=== PATIENT | male | born 1950 | race Caucasian/White ===

== ENCOUNTER 2017-10-24 14:19 | Inpatient (IN) | payer OTHER ==
[~2017-10-24] VITALS: Ht 175.3 cm; Wt 91.9 kg
[~2017-10-24 14:19] MED LIST: PANT40TA PO; SUCR1TAB PO
[2017-10-24] MEDS ORDERED: ONDANSETRON INJ 2 MG/ML 2 ML VIAL IV STA (14:25)
[2017-10-24] MEDS ORDERED: SODIUM CHLORIDE 0.9% 1000ML 1,000 ML IV STA ×2 (14:25→15:19)
--- NOTE | 2017-10-24 14:29 | EMERGENCY ROOM VISIT NOTE ---
History Report prepared by Joellen: Nick Richter Under the Supervision of: Dr. Timoteo Carrion D.O. First contact with patient: 14:21 Stated Complaint: LETHARGIC History of Present Illness The patient is a 67 year old male who presents to the Emergency Room with complaints of constant lethargy beginning three weeks ago. The patient states he was diagnosed with the flu three weeks ago, and he has been bed bound since. He reports he has not eaten or drank anything in the past three days. The patient notes he has also experienced a large amount of nausea. He states his abdomen has been hurting, and it is normally not distended. The patient reports he does not remember when his last bowel movement was. He denies vomiting, a history of heart failure, and a history of an ME. Source of History: patient Onset: 3 weeks ago Position: other (global) Quality: other (lethargy) Timing: constant Associated Symptoms: + nausea, + abdominal pain, No vomiting Note: Associated symptoms: decreased appetite and fluid intake, abdomen is distended Review of Systems See HPI for pertinent positives & negatives. A total of 10 systems reviewed and were otherwise negative. Past Medical & Surgical Medical Problems: (1) Cataract Social History Problems: (1) Former smoker Family History Patient reports no known family medical history. Social History Smoking Status: Former Smoker Alcohol Use: none Drug Use: none Marital Status: single Occupation Status: retired Current/Historical Medications Scheduled Lisinopril & Hydrochlorothiazi (Zestoretic 20-12.5 mg), 1 TAB PO QPM Scheduled PRN Soklkotmwq-Ubfrepqbwlktg-Wqzwu (Fioricet), 1-2 TABS PO Q4 PRN for Migraine Allergies Coded Allergies: Shrimp (Verified Adverse Reaction, Unknown, GI SYMPTOMS, 10/24/17) Physical Exam Vital Signs Date Time Temp Pulse Resp B/P (MAP) Pulse Ox O2 Delivery O2 Flow Rate FiO2 10/24/17 16:35 107 20 165/89 97 10/24/17 16:00 107 20 165/89 97 Room Air 10/24/17 15:34 105 19 140/91 98 Room Air 10/24/17 15:19 107 18 136/83 98 Room Air 10/24/17 14:30 111 10/24/17 14:20 37.2 122 19 129/89 96 Room Air Physical Exam GENERAL: Patient is awake, alert, and in some distress. Patient is showing mild signs of anxiety EYES: The conjunctivae are clear. The pupils are round and reactive. EARS, NOSE, MOUTH AND THROAT: The nose is without any evidence of any deformity. Mucous membranes are dry tongue is midline NECK: The neck is nontender and supple. RESPIRATORY: Normal respiratory effort is noted there is no evidence of wheezing rhonchi or rales CARDIOVASCULAR: Tachycardic rate and regular rhythm noted there no murmurs rubs or gallops normal S1 normal S2 GASTROINTESTINAL: The abdomen is soft. Bowel sounds are present in all quadrants. Abdomen severely distended and appears to be tender. No definite hernia. MUSCULOSKELETAL/EXTREMITIES: There is no evidence of gross deformity full range of motion is noted in the hips and shoulders SKIN: There is no obvious evidence of any rash. There are no petechiae, pallor or cyanosis noted. NEUROLOGIC: Patient is awake alert and oriented x3 strength is symmetric patellar reflexes are 2+ bilaterally Medical Decision & Procedures ER Provider Diagnostic Interpretation: Radiology results as stated below per my review and radiologist interpretation: CHEST ONE VIEW PORTABLE HISTORY: 67 years-old Male ABDOMINAL PAIN/GI acute generalized abdominal pain COMPARISON: Chest radiograph 09/30/2015 TECHNIQUE: Portable AP view of the chest FINDINGS: Cardiomediastinal and hilar silhouettes are within normal limits. Atherosclerosis of the aorta. Linear subsegmental left basilar opacities suggest atelectasis or scarring. There is no pneumothorax, pleural effusion, focal airspace consolidation or overt pulmonary edema. The bones of the chest appear grossly intact. IMPRESSION: No acute process. The above report was generated using voice recognition software. It may contain grammatical, syntax or spelling errors. Electronically signed by: Ezio Pandya M.D. 10/24/2017 3:32 PM Dictated Date/Time: 10/24/2017 3:31 PM ABDOMEN AND PELVIS CT WITHOUT CONTRAST CT DOSE: 968.36 mGy.cm HISTORY: Acute abdominal distention with vomiting abd distention and vomiting TECHNIQUE: Multiaxial CT images of the abdomen and pelvis were performed without contrast. A dose lowering technique was utilized adhering to the principles of ALARA. COMPARISON STUDY: Hepatobiliary scan 10/01/2015, CT abdomen and pelvis 09/30/2015. FINDINGS: Mild subsegmental bibasilar atelectasis. Imaged inferior cardiac chambers are unremarkable with coronary arterial disease. The liver, spleen and right adrenal gland are unremarkable. There is mild nodular thickening of the left adrenal gland suggesting hyperplasia. Moderate generalized pancreatic atrophy. Mild gallbladder distention without cholelithiasis or biliary ductal dilation identified. Nonspecific partially calcified aaron hepatis lymph nodes are again seen which are not enlarged. Mild nonspecific bilateral perinephric stranding. 2.9 cm ovoid low attenuating lesion of the interpolar right kidney suggesting cyst is unchanged. Exophytic low attenuating lesion within the inferior pole right kidney measures 1.8 cm and also suggests renal cyst. No renal calculi or obstructive uropathy. Urinary bladder is unremarkable. Prostate is mildly enlarged. Moderate atherosclerosis of the aorta. No bulky adenopathy. Mildly prominent lymph nodes of the mid mesentery are likely reactive. There is a small sliding-type hiatal hernia. Extensive colonic diverticulosis with associated areas of wall thickening within the mid sigmoid colon compatible with acute diverticulitis. There is nondistention throughout the majority of the colon. The appendix appears normal. Moderate mesenteric inflammatory changes are seen throughout the pelvis adjacent to the inflamed diverticulitis with additional inflammatory changes throughout the mid mesentery. There is moderate pneumoperitoneum with a large air and fluid containing abscess of the left lower abdomen and left pelvis which measures up to 10.9 x 13.1 x 14.3 cm with loops of small and large bowel draped around its periphery. This collection demonstrates a thin wall with areas of wall irregularity noted along its left lateral margin as seen on image 21 series 3 with air tracking from the collection into the adjacent omentum adjacent to the transverse colon. Additional smaller air and fluid-filled collections are seen anterior to the transverse colon as noted on image 224 series 3. There is a separate irregular air and fluid containing collection with ill-defined margins within the left lateral pelvis seen on image 304 series 3. Pneumoperitoneum appears to be tracking towards the sigmoid colon on image 344 series 3 which may reflect site of perforation. Dilated loops of small bowel within the pelvis with air-fluid levels are seen measuring up to 3.6 cm as seen on image 349 series 3 suggesting reactive ileus. Mild diastases recti with small fat filled periumbilical hernia, diastases 2.2 cm. Bones appear intact. Levoscoliosis of the lumbar spine. IMPRESSION: 1. Acute complicating sigmoid diverticulitis with pneumoperitoneum compatible with perforation. Additionally, there is a large air and fluid-filled collection of the left lower abdomen and left pelvis measuring up to 14.3 cm compatible with abscess. Multiple additional smaller abscesses are also present within the lower abdomen and pelvis as above. Surgical consultation is advised. 2. Dilated loops of ileum within the pelvis with air-fluid levels suggestive reactive ileus without evidence of proximal small bowel obstruction. 3. Small sliding-type hiatal hernia. 4. Additional findings as above. Electronically signed by: Ezio Pandya M.D. 10/24/2017 3:26 PM Dictated Date/Time: 10/24/2017 3:08 PM Laboratory Results 10/24/17 14:33 Red Blood Count 4.54, Mean Corpuscular Volume 90.5, Mean Corpuscular Hemoglobin 32.2, Mean Corpuscular Hemoglobin Concent 35.5, Mean Platelet Volume 8.9, Neutrophils (%) (Auto) 78.9, Lymphocytes (%) (Auto) 6.2, Monocytes (%) (Auto) 13.9, Eosinophils (%) (Auto) 0.0, Basophils (%) (Auto) 0.2, Neutrophils # (Auto ) 9.24, Lymphocytes # (Auto) 0.73, Monocytes # (Auto) 1.63, Eosinophils # (Auto ) 0.00, Basophils # (Auto) 0.02 10/24/17 14:33 Test 10/24/17 14:33 10/24/17 14:46 White Blood Count 11.71 K/uL (4.8-10.8) Red Blood Count 4.54 M/uL (4.7-6.1) Hemoglobin 14.6 g/dL (14.0-18.0) Hematocrit 41.1 % (42-52) Mean Corpuscular Volume 90.5 fL (80-100) Mean Corpuscular Hemoglobin 32.2 pg (25-34) Mean Corpuscular Hemoglobin Concent 35.5 g/dl (32-36) Platelet Count 372 K/uL (130-400) Mean Platelet Volume 8.9 fL (7.4-10.4) Neutrophils (%) (Auto) 78.9 % Lymphocytes (%) (Auto) 6.2 % Monocytes (%) (Auto) 13.9 % Eosinophils (%) (Auto) 0.0 % Basophils (%) (Auto) 0.2 % Neutrophils # (Auto) 9.24 K/uL (1.4-6.5) Lymphocytes # (Auto) 0.73 K/uL (1.2-3.4) Monocytes # (Auto) 1.63 K/uL (0.11-0.59) Eosinophils # (Auto) 0.00 K/uL (0-0.5) Basophils # (Auto) 0.02 K/uL (0-0.2) RDW Standard Deviation 47.3 fL (36.4-46.3) RDW Coefficient of Variation 14.3 % (11.5-14.5) Immature Granulocyte % (Auto) 0.8 % Immature Granulocyte # (Auto) 0.09 K/uL (0.00-0.02) Prothrombin Time 15.3 SECONDS (9.0-12.0) Prothromb Time International Ratio 1.5 (0.9-1.1) Activated Partial Thromboplast Time 37.8 SECONDS (21.0-31.0) Partial Thromboplastin Ratio 1.5 Anion Gap 20.0 mmol/L (3-11) Est Creatinine Clear Calc Drug Dose 56.0 ml/min Estimated GFR () 61.0 Estimated GFR (Non- 52.6 BUN/Creatinine Ratio 20.1 (10-20) Calcium Level 8.9 mg/dl (8.5-10.1) Magnesium Level 2.2 mg/dl (1.8-2.4) Total Bilirubin 0.5 mg/dl (0.2-1) Direct Bilirubin 0.2 mg/dl (0-0.2) Aspartate Amino Transf (AST/SGOT) 27 U/L (15-37) Alanine Aminotransferase (ALT/SGPT) 27 U/L (12-78) Alkaline Phosphatase 166 U/L (45-117) Total Creatine Kinase 35 U/L (39-308) Creatine Kinase MB 2.1 ng/ml (0.5-3.6) Creatine Kinase MB Ratio 6.0 (0-3.0) Troponin I 0.027 ng/ml (0-0.045) Total Protein 8.1 gm/dl (6.4-8.2) Albumin 2.1 gm/dl (3.4-5.0) Lipase 207 U/L (73-393) Bedside Lactic Acid Venous 1.58 mmol/L (0.90-1.70) Laboratory results per my review. Medications Administered Medications (Trade) Dose Ordered Sig/King Route Start Time Stop Time Status Last Admin Dose Admin Sodium Chloride 1,000 ml @ 999 mls/hr Q1H1M STAT IV 10/24/17 14:25 10/24/17 15:25 DC 10/24/17 14:49 999 MLS/HR Ondansetron HCl (Zofran Inj) 4 mg NOW STAT IV 10/24/17 14:25 10/24/17 14:26 DC 10/24/17 14:49 4 MG Piperacillin Sod/ Tazobactam Sod (Zosyn Iv) 4.5 gm NOW STAT IV 10/24/17 15:19 10/24/17 15:20 DC 10/24/17 15:34 4.5 GM Sodium Chloride 1,000 ml @ 999 mls/hr Q1H1M STAT IV 10/24/17 15:19 10/24/17 16:19 DC 10/24/17 15:34 999 MLS/HR ECG Indication: weakness Rate (beats per minute): 116 Rhythm: sinus tachycardia Findings: Q waves (Inferior), no ectopy, other (Poor R-Wave progression noted) Comparison ECG Date: 10/01/15 Change: Changes are new. Patient's EKG was interpreted by me. ED Course 1422: The patient was evaluated in room C04. A complete history and physical examination were performed. 1425: Ordered Ondansetron HCl 4mg IV, NSS 1,000 ml @ 999 mls/hr IV 1519: Ordered NSS 1,000 ml @ 999 mls/hr IV, Zosyn IV 4.5 gm IV 1536: I discussed the patient's case with Lisa Adams PA-C, Surgery. She will discuss the case with Dr. Shea, Surgery. 1544: Dr. Shea is going to evaluate the patient and take him to the OR. 1546: Upon reevaluation, the patient is resting. I discussed results and treatment plan with him. He verbalizes agreement and understanding. The patient will be evaluated for further management and care. 1550: I spoke with Lisa again. She asked me to consult medicine. 1554: I discussed the patient's case with Dr. Pearson, [facility] for medical advice about the patient. Medical Decision Differential diagnosis: Etiologies such as appendicitis, diverticulitis, PUD, biliary pathology, UTI, pancreatitis, obstruction, mesenteric ischemia, aortic pathology, infections, inflammatory bowel disease, renal colic, as well as others were entertained. Nursing notes reviewed. Additional history was obtained from the patient's prehospital personnel. The patient is a 67-year-old male who presented to the emergency department for an evaluation of generalized weakness. The patient was found have very significant abdominal distention as well as tenderness. His CAT scan appear to be consistent with diverticular rupture with abscess as well as diverticulitis. The patient was treated with IV fluids as well as IV and about. He was reevaluated multiple times. I discussed his laboratory radiographic studies with him. I also discussed his case with the on-call general surgical group as well as the on-call [facility] hospitalist group. They have agreed to evaluate the patient for further management and disposition. Medication Reconcilliation Current Medication List: was personally reviewed by me Blood Pressure Screening Patient's blood pressure: Elevated blood pressure Blood pressure disposition: Elevated BP felt to be situational Consults Time Called: 1534 Consulting Physician: Lisa Adams PA-C, Surgery Returned Call: 1536 I discussed the patient's case with Lisa Adams PA-C, Surgery. She will discuss the case with Dr. Shea, Surgery. 1544: Dr. Shea is going to evaluate the patient and take him to the OR. 1550: I spoke with Lisa again. She asked me to consult medicine. Additional Consults: Time Called: 1551 [facility] Returned Call: 1554 Additional Comments: I [facility] the [facility]. Impression Primary Impression: Diverticulitis of intestine with perforation Additional Impressions: Pneumoperitoneum Intra-abdominal abscess Scribe Attestation The scribe's documentation has been prepared under my direction and personally reviewed by me in its entirety. I confirm that the note above accurately reflects all work, treatment, procedures, and medical decision making performed by me. Departure Information Dispostion Being Evaluated By Surgeon Referrals No Doctor, Assigned (PCP) Problem Qualifiers Primary Impression: Diverticulitis of intestine with perforation Diverticulitis site: large intestine Diverticulitis bleeding: without bleeding Qualified Codes: K57.20 - Diverticulitis of large intestine with perforation and abscess without bleeding
[2017-10-24 14:55] LABS: HEMATOCRIT 41.1 % (42-52); HEMOGLOBIN 14.6 g/dL (14.0-18.0); MEAN CELL VOLUME 90.5 fL (80-100); MEAN CORPUSCULAR HEMOGLOBIN 32.2 pg (25-34); MEAN CORPUSCULAR HGB CONC 35.5 g/dl (32-36); MEAN PLATELET VOLUME 8.9 fL (7.4-10.4); PLATELET COUNT 372 K/uL (130-400); RED CELL DISTRIBUTION WIDTH CV 14.3 % (11.5-14.5); RED CELL DISTRIBUTION WIDTH SD 47.3 fL (36.4-46.3); WHITE BLOOD COUNT 11.71 K/uL (4.8-10.8)
[2017-10-24 15:06] LABS: INR 1.5 (0.9-1.1); PTT PATIENT 37.8 SECONDS (21.0-31.0)
[2017-10-24 15:13] LABS: ALBUMIN 2.1 gm/dl (3.4-5.0); CALCIUM 8.9 mg/dl (8.5-10.1); CREATININE 1.37 mg/dl (0.60-1.40); POTASSIUM 3.4 mmol/L (3.5-5.1)
[2017-10-24 15:14] LABS: BASO % 0.2 %; BASO ABS # 0.02 K/uL (0-0.2); IG# 0.09 K/uL (0.00-0.02); LYMPH % 6.2 %; LYMPH ABS # 0.73 K/uL (1.2-3.4); MONO % 13.9 %; MONO ABS # 1.63 K/uL (0.11-0.59); NEUT % 78.9 %; NEUT ABS # 9.24 K/uL (1.4-6.5)
[2017-10-24 15:16] LABS: CKMB 2.1 ng/ml (0.5-3.6); TOTAL PROTEIN 8.1 gm/dl (6.4-8.2)
[2017-10-24] MEDS ORDERED: PIPERACILLIN/TAZOBACTAM 4.5 GM/100ML D5W IV STA (15:19)
[2017-10-24] MEDS ORDERED: LISI-787 PO (15:25)
[2017-10-24] MEDS ORDERED: BUTA1CAP17 PO (15:25)
--- NOTE | 2017-10-24 15:28 | DIAGNOSTIC IMAGING REPORT ---
ABDOMEN AND PELVIS CT WITHOUT CONTRAST CT DOSE: 968.36 mGy.cm HISTORY: Acute abdominal distention with vomiting abd distention and vomiting TECHNIQUE: Multiaxial CT images of the abdomen and pelvis were performed without contrast. A dose lowering technique was utilized adhering to the principles of ALARA. COMPARISON STUDY: Hepatobiliary scan 10/01/2015, CT abdomen and pelvis 09/30/2015. FINDINGS: Mild subsegmental bibasilar atelectasis. Imaged inferior cardiac chambers are unremarkable with coronary arterial disease. The liver, spleen and right adrenal gland are unremarkable. There is mild nodular thickening of the left adrenal gland suggesting hyperplasia. Moderate generalized pancreatic atrophy. Mild gallbladder distention without cholelithiasis or biliary ductal dilation identified. Nonspecific partially calcified aaron hepatis lymph nodes are again seen which are not enlarged. Mild nonspecific bilateral perinephric stranding. 2.9 cm ovoid low attenuating lesion of the interpolar right kidney suggesting cyst is unchanged. Exophytic low attenuating lesion within the inferior pole right kidney measures 1.8 cm and also suggests renal cyst. No renal calculi or obstructive uropathy. Urinary bladder is unremarkable. Prostate is mildly enlarged. Moderate atherosclerosis of the aorta. No bulky adenopathy. Mildly prominent lymph nodes of the mid mesentery are likely reactive. There is a small sliding-type hiatal hernia. Extensive colonic diverticulosis with associated areas of wall thickening within the mid sigmoid colon compatible with acute diverticulitis. There is nondistention throughout the majority of the colon. The appendix appears normal. Moderate mesenteric inflammatory changes are seen throughout the pelvis adjacent to the inflamed diverticulitis with additional inflammatory changes throughout the mid mesentery. There is moderate pneumoperitoneum with a large air and fluid containing abscess of the left lower abdomen and left pelvis which measures up to 10.9 x 13.1 x 14.3 cm with loops of small and large bowel draped around its periphery. This collection demonstrates a thin wall with areas of wall irregularity noted along its left lateral margin as seen on image 21 series 3 with air tracking from the collection into the adjacent omentum adjacent to the transverse colon. Additional smaller air and fluid-filled collections are seen anterior to the transverse colon as noted on image 224 series 3. There is a separate irregular air and fluid containing collection with ill-defined margins within the left lateral pelvis seen on image 304 series 3. Pneumoperitoneum appears to be tracking towards the sigmoid colon on image 344 series 3 which may reflect site of perforation. Dilated loops of small bowel within the pelvis with air-fluid levels are seen measuring up to 3.6 cm as seen on image 349 series 3 suggesting reactive ileus. Mild diastases recti with small fat filled periumbilical hernia, diastases 2.2 cm. Bones appear intact. Levoscoliosis of the lumbar spine. IMPRESSION: 1. Acute complicating sigmoid diverticulitis with pneumoperitoneum compatible with perforation. Additionally, there is a large air and fluid-filled collection of the left lower abdomen and left pelvis measuring up to 14.3 cm compatible with abscess. Multiple additional smaller abscesses are also present within the lower abdomen and pelvis as above. Surgical consultation is advised. 2. Dilated loops of ileum within the pelvis with air-fluid levels suggestive reactive ileus without evidence of proximal small bowel obstruction. 3. Small sliding-type hiatal hernia. 4. Additional findings as above. Electronically signed by: Ezio Pandya M.D. 10/24/2017 3:26 PM Dictated Date/Time: 10/24/2017 3:08 PM
--- NOTE | 2017-10-24 15:34 | DIAGNOSTIC IMAGING REPORT ---
CHEST ONE VIEW PORTABLE HISTORY: 67 years-old Male ABDOMINAL PAIN/GI acute generalized abdominal pain COMPARISON: Chest radiograph 09/30/2015 TECHNIQUE: Portable AP view of the chest FINDINGS: Cardiomediastinal and hilar silhouettes are within normal limits. Atherosclerosis of the aorta. Linear subsegmental left basilar opacities suggest atelectasis or scarring. There is no pneumothorax, pleural effusion, focal airspace consolidation or overt pulmonary edema. The bones of the chest appear grossly intact. IMPRESSION: No acute process. The above report was generated using voice recognition software. It may contain grammatical, syntax or spelling errors. Electronically signed by: Ezio Pandya M.D. 10/24/2017 3:32 PM Dictated Date/Time: 10/24/2017 3:31 PM
--- NOTE | 2017-10-24 16:14 | Medical Consult ---
Consultation Date of Consultation: Oct 24, 2017. Attending Physician: Reason for Consultation: Acute complicating sigmoid diverticulitis with pneumoperitoneum compatible with perforation History of Present Illness Mr. Mott is a 67-year-old male with past medical history significant for heart failure and KS presented to [facility] ED after several weeks of flu-like symptoms- states that he was diagnosed with flu. Over the past couple of days he had increased abdominal pain, nausea, and abdominal distention. He has not been hungry for the last week- last time he attempted to eat anything was a tangerine this AM. He is incredibly weak and has not been able to get out of bed. Cannot remember when last bowel movement was. Denies prior episodes of diverticulitis. 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 Garcia GI ( 2011)- at that time both upper endoscopy and colonoscopy were conducted. Denies any other abdominal procedures or surgeries. Past Medical/Surgical History Medical Problems: (1) Epigastric pain Status: Acute (2) Pancreatitis Status: Acute (3) Precordial chest pain Status: Acute Family History Patient reports no known family medical history. Social History Smoking Status: Former Smoker Drug Use: none Housing Status: lives with significant other Allergies Coded Allergies: Shrimp (Verified Adverse Reaction, Unknown, GI SYMPTOMS, 10/24/17) Current Inpatient Medications Current Inpatient Medications Medications (Trade) Dose Ordered Sig/King Route Start Time Stop Time Status Last Admin Dose Admin Sodium Chloride 1,000 ml @ 999 mls/hr Q1H1M STAT IV 10/24/17 15:19 10/24/17 16:19 10/24/17 15:34 999 MLS/HR Review of Systems Constitutional: + weakness, + fatigue, No fever, No chills Abdomen: + pain, + nausea Neurologic: + weakness Endocrine: + fatigue Physical Exam Date Time Temp Pulse Resp B/P (MAP) Pulse Ox O2 Delivery O2 Flow Rate FiO2 10/24/17 15:34 105 19 140/91 98 Room Air 10/24/17 15:19 107 18 136/83 98 Room Air 10/24/17 14:30 111 10/24/17 14:20 37.2 122 19 129/89 96 Room Air General Appearance: + moderate distress Abdomen/GI: + tenderness, + distended, + pertinent finding (exquisitely tender with palpation. ) Laboratory Results Last 24 Hours Test 10/24/17 14:33 10/24/17 14:46 White Blood Count 11.71 K/uL Red Blood Count 4.54 M/uL Hemoglobin 14.6 g/dL Hematocrit 41.1 % Mean Corpuscular Volume 90.5 fL Mean Corpuscular Hemoglobin 32.2 pg Mean Corpuscular Hemoglobin Concent 35.5 g/dl Platelet Count 372 K/uL Mean Platelet Volume 8.9 fL Neutrophils (%) (Auto) 78.9 % Lymphocytes (%) (Auto) 6.2 % Monocytes (%) (Auto) 13.9 % Eosinophils (%) (Auto) 0.0 % Basophils (%) (Auto) 0.2 % Neutrophils # (Auto) 9.24 K/uL Lymphocytes # (Auto) 0.73 K/uL Monocytes # (Auto) 1.63 K/uL Eosinophils # (Auto) 0.00 K/uL Basophils # (Auto) 0.02 K/uL RDW Standard Deviation 47.3 fL RDW Coefficient of Variation 14.3 % Immature Granulocyte % (Auto) 0.8 % Immature Granulocyte # (Auto) 0.09 K/uL Prothrombin Time 15.3 SECONDS Prothromb Time International Ratio 1.5 Activated Partial Thromboplast Time 37.8 SECONDS Partial Thromboplastin Ratio 1.5 Sodium Level 129 mmol/L Potassium Level 3.4 mmol/L Chloride Level 93 mmol/L Carbon Dioxide Level 16 mmol/L Anion Gap 20.0 mmol/L Blood Urea Nitrogen 28 mg/dl Creatinine 1.37 mg/dl Est Creatinine Clear Calc Drug Dose 56.0 ml/min Estimated GFR () 61.0 Estimated GFR (Non- 52.6 BUN/Creatinine Ratio 20.1 Random Glucose 119 mg/dl Calcium Level 8.9 mg/dl Magnesium Level 2.2 mg/dl Total Bilirubin 0.5 mg/dl Direct Bilirubin 0.2 mg/dl Aspartate Amino Transf (AST/SGOT) 27 U/L Alanine Aminotransferase (ALT/SGPT) 27 U/L Alkaline Phosphatase 166 U/L Total Creatine Kinase 35 U/L Creatine Kinase MB 2.1 ng/ml Creatine Kinase MB Ratio 6.0 Troponin I 0.027 ng/ml Total Protein 8.1 gm/dl Albumin 2.1 gm/dl Lipase 207 U/L Bedside Lactic Acid Venous 1.58 mmol/L CT Abdomen/Pelvis 1. Acute complicating sigmoid diverticulitis with pneumoperitoneum compatible with perforation. Additionally, there is a large air and fluid-filled collection of the left lower abdomen and left pelvis measuring up to 14.3 cm compatible with abscess. Multiple additional smaller abscesses are also present within the lower abdomen and pelvis as above. Surgical consultation is advised. 2. Dilated loops of ileum within the pelvis with air-fluid levels suggestive reactive ileus without evidence of proximal small bowel obstruction. 3. Small sliding-type hiatal hernia. 4. Additional findings as above. Assessment & Plan 67-year-old male with CT confirmed Acute complicating sigmoid diverticulitis with pneumoperitoneum compatible with perforation, possible abscess. Discussed case with Dr. Shea- prep OR for Stat Ex Lap- OR called. IV antibiotics Patient NPO IV pain medication. IVF SCDs.
--- NOTE | 2017-10-24 16:35 | History & Physical Bridge Note ---
H&P Re-Evaluation Bridge Note: I have examined the patient, reviewed the History & Physical and in the interval since the performance of the History & Physical I have noted the following changes of clinical significance: No changes noted
[2017-10-24] MEDS ORDERED: EpHEDrine SULFATE INJ 50 MG/ML AMP IV PRN (16:45)
[2017-10-24] MEDS ORDERED: ONDANSETRON INJ 2 MG/ML 2 ML VIAL IV PRN ×2 (16:45→20:15)
[2017-10-24] MEDS ORDERED: FENTANYL CITRATE INJ 50 MCG/1 ML 2 ML VIAL IV PRN (16:45)
[2017-10-24] MEDS ORDERED: ATROPINE SULFATE 0.1 MG/ML 5ML SYR IV PRN (16:45)
[2017-10-24] MEDS ORDERED: MEPERIDINE HCL 25 MG/ML CARP IV PRN (16:45)
[2017-10-24] MEDS ORDERED: HYDROmorphone INJ 1 MG/ML SYR IV PRN (16:45)
[2017-10-24] MEDS ORDERED: LABETALOL HCL IV 5 MG/ML 20ML IV PRN (16:45)
[2017-10-24] MEDS ORDERED: FENTANYL CITRATE INJ 50 MCG/1 ML 2 ML VIAL ONE (16:52)
[2017-10-24] MEDS ORDERED: SUCCINYLCHOLINE CHLORIDE 20 MG/ML 10 ML VIAL IV ONE (18:33)
[2017-10-24] MEDS ORDERED: PROPOFOL IV EMULSION 10 MG/ML 20 ML VIAL IV ONE (18:33)
[2017-10-24] MEDS ORDERED: ROCURONIUM BROMIDE 10 MG/ML 5 ML VIAL IV ONE (18:33)
[2017-10-24] MEDS ORDERED: EpHEDrine SULFATE 50MG/5ML SYR ONE (18:33)
[2017-10-24] MEDS ORDERED: PHENYLEPHRINE HCL INJ 10 MG/ML VIAL ONE (18:34)
[2017-10-24] MEDS ORDERED: MIDAZOLAM HCL 1 MG/ML 2ML VIAL ONE (19:12)
--- NOTE | 2017-10-24 19:38 | [facility] Post Operative Brief Note ---
Immediate Operative Summary Operative Date Oct 24, 2017. Pre-Operative Diagnosis Perforated Viscus Post-Operative Diagnosis Perforated Colon, Multiple Abdominal Abscesses; ischemic small bowel Procedure(s) Performed Exploratory Laparotomy, Drainage of Multiple Abdominal Abscesses, Partial Transverse Colectomy, Partial Small Bowel Resection, Creation of Colostomy and Mucous Fistula Surgeon Dr. Shea Professor Of Chemistry Surgeon(s) Lisa Adams PA-C Estimated Blood Loss 600 mL Findings Consistent with Post-Op Diagnosis Specimens Microbiology #1: abdominal abscess-gram stain, routine culture and sensitivity, anaerobic-out of room at 1730. Permanent Specimen A: Portion of transverse colon B: Portion of small bowel Drains 19 lori times 2 Anesthesia Type General Disposition Disposition: Surgical ICU
--- NOTE | 2017-10-24 19:56 | [facility] Operative Report ---
Operative Report Operative Date Oct 24, 2017. Pre-Operative Diagnosis Perforated Viscus Post-Operative Diagnosis Perforated Colon, Multiple Abdominal Abscesses; ischemic small bowel Procedure(s) Performed Exploratory Laparotomy, Drainage of Multiple Abdominal Abscesses, Partial Transverse Colectomy, Partial Small Bowel Resection, Creation of Colostomy and Mucous Fistula Surgeon Dr. Shea Pole Shaver Helper Surgeon(s) Lisa Adams PA-C Estimated Blood Loss 600 mL Findings perforated colon; ischemic small bowel; multiple abdominal abcesses Specimens Microbiology #1: abdominal abscess-gram stain, routine culture and sensitivity, anaerobic-out of room at 1730. Permanent Specimen A: Portion of transverse colon B: Portion of small bowel Drains 19 lori times 2 Complication(s) None Disposition Surgical ICU Description of Procedure After informed consent was obtained the patient was brought urgently to the operating room and placed in a supine position. After successful intubation the nasogastric tube ,Lynn catheter were placed and the abdomen was shaved and sterilely prepped and draped in usual fashion. I made a midline incision from above the umbilicus down around the umbilicus to the suprapubic area. We carried this down through the soft tissue using electrocautery. The anterior rectus fascia was opened using electrocautery and the peritoneum was elevated with hemostats and incised with a Metzenbaum scissor. Once in the abdomen we opened the fascia both poles using electrocautery. The abdomen was markedly inflamed and essentially an abdominal catastrophe. There was probably a liter of pure pus throughout the abdomen. There was one large abscess in the mid to upper abdomen and multiple smaller abscesses throughout. It took us probably a half hour just to fractionate all the abscess cavities and drain them. Cultures were sent for Gram stain aerobic and anaerobic cultures. Eventually we are able to suction out all the purulent fluid and irrigate it. We then began to decipher the anatomy which again was quite difficult. There was some food debris within the abdomen. We traced this to a hole in the proximal transverse colon. As we fractionated down through one of the abscess cavities was between the mesentery of the small bowel. This led to a segment of ischemic injured area of small bowel. We followed the colon the whole way around to the rectum. The rectum and sigmoid appeared normal. There was of course severe inflammatory process throughout all of the tissues in the abdomen. We stapled off the transverse colon using a purple cartridge LEONEL proximal to the area of perforation and then again distal to the area of perforation. Interestingly this was right in the area of the middle colic vessels. We used LigaSure to take down the mesentery and removed the portion of colon with a hole in it. I was unable to definitively feel a tumor although again the tissues were almost indecipherable because of inflammation. I would later perform a proximal diverting colostomy and a mucous fistula at of these 2 stapled ends. I decided after looking at the small bowel it was just too injured inflamed and ischemic to salvage. We stapled off a portion of the small bowel proximal to this area with a brown cartridge stapler. We also found the distal most viable area and stapled this off as well. We took down the mesentery using the LigaSure device and passed off the small bowel. I then performed a [id number] small bowel anastomosis again with a Brown stapler. We used a TA stapling device to close the common enterotomy. 3-0 [address] was [address] to place a crotch stitch as well as to oversew the staple lines. The mesenteric defect was closed using 0 Vicryl and simple interrupted fashion. Next we performed a thorough irrigation. We continued fractionate fluid pockets and used multiple liters of warm irrigating solution. We verified the nasogastric tube was in the stomach. No other gross abnormalities were identified. 2 #19 Lori drains were placed in the pelvis and one down the left paracolic gutter and one down the right paracolic gutter. we used separate stab incisions and secured using 2-0 nylon. We then made ostomy sites one in the left upper quadrant for the mucous fistula and one in the right upper quadrant for the diverting colostomy. We opened the fascia in a cruciate manner and delivered the staple ends out through these openings. There was adequate hemostasis at the end of the procedure. A final irrigation was performed. I closed the fascia starting at either pole using #1 PDS in running them and securing them in the midline. Soft tissue was irrigated and skin was stapled very loosely. The ostomies were then opened and created an [place] fashion. Ostomy bags were placed. Silver dressing was applied to the midline incision. The patient was transferred to the surgical intensive care unit in critical condition. My physician's assistant terminal manager were present throughout the entire case. They helped prepping the patient. They helped with wound retraction throughout the procedure minute manipulation of equipment. He helped with wound closure dressing placement and ostomy formation. I attest to the content of the Intraoperative Record and any orders documented therein. Any exceptions are noted below.
[2017-10-24] MEDS ORDERED: HYDROCODONE/ACETAMOPHEN 5/325MG TAB PO PRN (20:15)
[2017-10-24] MEDS ORDERED: ACETAMINOPHEN IV 100 ML IV PRN (20:15)
[2017-10-24] MEDS ORDERED: PIPERACILL/TAZOBAC CONSULT ACTIVE PRN ×2 (20:15→21:00)
[2017-10-24] MEDS ORDERED: VANCOMYCIN CONSULT ACTIVE PRN (21:00)
[2017-10-24] MEDS ORDERED: ICU PROTOCOL FOR HYPERGLYCEMIA PRN (21:00)
[2017-10-24] MEDS ORDERED: VANCOMYCIN INJ 1,750 MG in SODIUM CHLORIDE 0.9% 500ML 500 ML IV STA (21:08)
--- NOTE | 2017-10-24 21:10 | Critical Care Consultation ---
Critical Care Consultation Date of Consultation: Oct 24, 2017. Attending Physician: Dashawn Shea D.O. Reason for Consultation: transverse colon perforation and abscess History of Present Illness Dandre Mott 67-year-old male who upon my evaluation is intubated and sedated and therefore past medical record is obtained electronically. Per emergency room documentation patient presented with complaints of lethargy that began 3 weeks prior to arrival during the time he was diagnosed with the fluid was bed bound since. At that time he stated he had not eaten or drank anything in the past 3 days while he was nauseous he had not vomited in his abdomen was distended and painful. He was unaware of his last bowel movement that time. 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 Garcia in 2011. At that time both upper and lower endoscopy were conducted. Patient was unaware of any prior episodes of diverticulitis. CT abdomen in the emergency department demonstrated perforation of the transverse colon as well as a large air and fluid-filled collection of the left lower abdomen and left pelvis measuring 14.3 cm compatible with abscess. Multiple additional smaller abscesses were also present in the lower abdomen and pelvis. Surgery was consult did and patient was taken to the operating room where he underwent Exploratory Laparotomy, Drainage of Multiple Abdominal Abscesses, Partial Transverse Colectomy, Partial Small Bowel Resection, Creation of Colostomy and Mucous Fistula by Dr. Shea. 2 KARMA dra[address] left in place. Per surgical note the abdomen was markedly inflamed, approximately a liter of pure pus throughout the abdomen and one large abscess in the mid to upper abdomen as well as multiple smaller abscesses seen throughout. This area was drained cultures were sent for Gram stain. Food debris was seen within the abdomen and perforation was found in the proximal transverse colon. Surgery was difficult secondary to markedly inflamed anatomy. Due to continued sedation the patient was left intubated and transferred to the intensive care unit for overnight monitoring. I reviewed the patient's outpatient record. Patient appears to suffer from gastroesophageal reflux disease, hypertension and migraines. Otherwise the patient's past medical history is limited. Patient is sedated however is able following simple commands and respond to yes and no questions. He states that he does continue to have abdominal pain but is less painful than when he presented. This is the majority of the pain that he currently feels. Patient attempts to communicate but as expected is difficult to understand with endotracheal intubation. Remainder of review of systems could not be obtained secondary to intubation, sedation and condition. Past Medical/Surgical History Medical Problems: Hx of Cataract Hypertension Migraine GERD Transverse Bowel Perforation Abdominal Abscess Chronic neck pain Surgical History: Bilateral Cataract Surgery Dental Extractions EGD Colonoscopy Sinus Surgery and deviated septum repair Family History Patient reports no known family medical history. Father: Acute myocardial infarction at age 39 Mother: Cancer Social History Smoking Status: Never Smoker Alcohol Use: occasionally (Gin) Drug Use: none Marital Status: other (Male Partner: unknown marital status) Housing Status: lives with significant other Occupation Status: retired Allergies Coded Allergies: Shrimp (Verified Adverse Reaction, Unknown, GI SYMPTOMS, 10/24/17) Home Medications Scheduled Lisinopril & Hydrochlorothiazi (Zestoretic 20-12.5 mg), 1 TAB PO QPM Scheduled PRN Dmexzclfeg-Cviqknpkjeqiu-Ezecu (Fioricet), 1-2 TABS PO Q4 PRN for Migraine Current Inpatient Medications Current Inpatient Medications Medications (Trade) Dose Ordered Sig/King Route Start Time Stop Time Status Last Admin Dose Admin Fentanyl Citrate (Fentanyl Inj) 50 mcg Q5M PRN IV 10/24/17 16:45 10/24/17 21:45 10/24/17 20:37 50 MCG Hydromorphone HCl (Dilaudid Inj) 0.5 mg Q5M PRN IV 10/24/17 16:45 10/24/17 21:45 Meperidine HCl (Demerol Inj) 25 mg Q5M PRN IV 10/24/17 16:45 10/24/17 21:45 Ondansetron HCl (Zofran Inj) 4 mg ONE PRN IV 10/24/17 16:45 10/24/17 21:45 Labetalol HCl (Normodyne IV) 5 mg Q5M PRN IV 10/24/17 16:45 10/24/17 21:45 Ephedrine Sulfate (EpHEDrine SULFATE INJ) 5 mg Q5M PRN IV 10/24/17 16:45 10/24/17 21:45 Atropine Sulfate (Atropine Sulfate 0.1mg/ml Inj) 0.5 mg Q1M PRN IV 10/24/17 16:45 10/24/17 21:45 Acetaminophen 100 ml @ 400 mls/hr Q8H PRN IV 10/24/17 20:15 11/23/17 20:14 UNV Acetaminophen/ Hydrocodone Bitart ([place] 5/325 Tab) 1 tab Q4H PRN PO 10/24/17 20:15 11/07/17 20:14 UNV Hydromorphone HCl (Dilaudid Inj) 0.5 mg Q3H PRN IV 10/24/17 20:15 11/07/17 20:14 UNV Acetaminophen/ Hydrocodone Bitart ([place] 5/325 Tab) 2 tab Q4H PRN PO 10/24/17 20:15 11/07/17 20:14 UNV Hydromorphone HCl (Dilaudid Inj) 1 mg Q3H PRN IV 10/24/17 20:15 11/07/17 20:14 UNV Ondansetron HCl (Zofran Inj) 4 mg Q6H PRN IV 10/24/17 20:15 11/23/17 20:14 UNV Enoxaparin Sodium (Lovenox Inj) 40 mg QAM SQ 10/25/17 09:00 11/24/17 08:59 UNV Pantoprazole Sodium 40 mg/ Syringe 10 ml @ 5 mls/min DAILY@11 IV 10/25/17 11:00 11/24/17 10:59 Piperacillin Sod/ Tazobactam Sod 3.375 gm/Dextrose 115 ml @ 200 mls/hr Q6 IV 10/25/17 00:00 10/26/17 00:00 UNV Miscellaneous Information (Icu Protocol For Hyperglycemia) 1 ea PRN PRN N/A 10/24/17 21:00 10/26/17 20:59 Miscellaneous Information (Consult) 1 ea UD PRN N/A 10/24/17 21:00 11/23/17 20:59 UNV Fluconazole/ Sodium Chloride 200 mg/Prmx 100 ml @ 100 mls/hr DAILY IV 10/25/17 09:00 11/04/17 08:59 UNV Fluconazole/ Sodium Chloride 200 mg/Prmx 100 ml @ 100 mls/hr 2049 ONCE IV 10/24/17 20:49 10/24/17 21:48 UNV Vancomycin HCl 1750 mg/Sodium Chloride 535 ml @ 200 mls/hr NOW STAT IV 10/24/17 21:08 10/24/17 23:48 Miscellaneous Information (Consult) 1 ea UD PRN N/A 10/24/17 21:00 11/23/17 20:59 UNV Parenteral Electrolyte Solution 1,000 ml @ 125 mls/hr Q8H IV 10/24/17 21:15 11/23/17 21:14 Fentanyl Citrate (Fentanyl Inj) 100 mcg Q1H PRN IV 10/24/17 21:15 11/07/17 21:14 UNV Midazolam HCl (Versed Inj) 2 mg Q2H PRN IV 10/24/17 21:15 11/23/17 21:14 UNV Review of Systems ROS could not be thoroughly obtained secondary to patient intubation, sedation and condition. Physical Exam Date Time Temp Pulse Resp B/P (MAP) Pulse Ox O2 Delivery O2 Flow Rate FiO2 10/24/17 20:10 100 10/24/17 16:35 107 20 165/89 97 10/24/17 16:00 107 20 165/89 97 Room Air 10/24/17 15:34 105 19 140/91 98 Room Air 10/24/17 15:19 107 18 136/83 98 Room Air 10/24/17 14:30 111 10/24/17 14:20 37.2 122 19 129/89 96 Room Air Vital Signs - as noted Laboratory Data - as noted Physical Exam: General - NAD Eyes - PERRL, EOMI No icterus, gaze conjugate ENT - Mucosa dry, no lesions or candidiasis Neck - Supple, trachea midline, no masses or lymphadenopathy, no JVD or bruits Lungs - No paradoxical chest wall movement, clear to auscultation bilaterally, no wheezes, rales, or rhonchi Heart - Sinus Tachycardia, No murmur, rubs, clicks, or gallops appreciated Abdomen - BS absent, Surgical dressing dry and intact, bilateral KARMA drains with bloody drainage noted, colectomy and muscous fisutal noted just off midline. no bruits noted, tympanic to percussion, soft, tenderness noted, nondistended, no organomegaly Extremities - No edema, pedal pulses intact Neuro -Rass 0 Strength extremities equal and appropriate bilaterally Reflexes: normal and equal CN:PERRL, EOMI, no facial asymmetry, uvula/tongue midline Laboratory Results Last 24 Hours Test 10/24/17 14:33 10/24/17 14:46 White Blood Count 11.71 K/uL Red Blood Count 4.54 M/uL Hemoglobin 14.6 g/dL Hematocrit 41.1 % Mean Corpuscular Volume 90.5 fL Mean Corpuscular Hemoglobin 32.2 pg Mean Corpuscular Hemoglobin Concent 35.5 g/dl Platelet Count 372 K/uL Mean Platelet Volume 8.9 fL Neutrophils (%) (Auto) 78.9 % Lymphocytes (%) (Auto) 6.2 % Monocytes (%) (Auto) 13.9 % Eosinophils (%) (Auto) 0.0 % Basophils (%) (Auto) 0.2 % Neutrophils # (Auto) 9.24 K/uL Lymphocytes # (Auto) 0.73 K/uL Monocytes # (Auto) 1.63 K/uL Eosinophils # (Auto) 0.00 K/uL Basophils # (Auto) 0.02 K/uL RDW Standard Deviation 47.3 fL RDW Coefficient of Variation 14.3 % Immature Granulocyte % (Auto) 0.8 % Immature Granulocyte # (Auto) 0.09 K/uL Prothrombin Time 15.3 SECONDS Prothromb Time International Ratio 1.5 Activated Partial Thromboplast Time 37.8 SECONDS Partial Thromboplastin Ratio 1.5 Sodium Level 129 mmol/L Potassium Level 3.4 mmol/L Chloride Level 93 mmol/L Carbon Dioxide Level 16 mmol/L Anion Gap 20.0 mmol/L Blood Urea Nitrogen 28 mg/dl Creatinine 1.37 mg/dl Est Creatinine Clear Calc Drug Dose 56.0 ml/min Estimated GFR () 61.0 Estimated GFR (Non- 52.6 BUN/Creatinine Ratio 20.1 Random Glucose 119 mg/dl Calcium Level 8.9 mg/dl Magnesium Level 2.2 mg/dl Total Bilirubin 0.5 mg/dl Direct Bilirubin 0.2 mg/dl Aspartate Amino Transf (AST/SGOT) 27 U/L Alanine Aminotransferase (ALT/SGPT) 27 U/L Alkaline Phosphatase 166 U/L Total Creatine Kinase 35 U/L Creatine Kinase MB 2.1 ng/ml Creatine Kinase MB Ratio 6.0 Troponin I 0.027 ng/ml Total Protein 8.1 gm/dl Albumin 2.1 gm/dl Lipase 207 U/L Bedside Lactic Acid Venous 1.58 mmol/L Diagnostic Results CHEST ONE VIEW PORTABLE HISTORY: 67 years-old Male intubation acute respiratory failure. COMPARISON: Chest radiograph 10/24/2017 TECHNIQUE: Portable supine AP view of the chest FINDINGS: Endotracheal tube overlies the midline, 3.7 cm superior to the leonela. Atherosclerosis of the aorta. Enteric tube courses below the diaphragm into the region of the gastric lumen. There is no pneumothorax or pleural effusion. Patchy left basilar opacities are noted. Mild right hemidiaphragmatic elevation. Right lung appears generally clear with mild subsegmental atelectasis/scarring of the right perihilar lung. Bones appear grossly intact. IMPRESSION: 1. Endotracheal tube overlies the midline, 3.7 cm superior to the leonela. Enteric tube courses into the region of the gastric lumen. 2. Patchy left basilar opacities suggest atelectasis. The above report was generated using voice recognition software. It may contain grammatical, syntax or spelling errors. Electronically signed by: Ezio Pandya M.D. 10/24/2017 9:29 PM Dictated Date/Time: 10/24/2017 9:25 PM ABDOMEN AND PELVIS CT WITHOUT CONTRAST CT DOSE: 968.36 mGy.cm HISTORY: Acute abdominal distention with vomiting abd distention and vomiting TECHNIQUE: Multiaxial CT images of the abdomen and pelvis were performed without contrast. A dose lowering technique was utilized adhering to the principles of ALARA. COMPARISON STUDY: Hepatobiliary scan 10/01/2015, CT abdomen and pelvis 09/30/2015. FINDINGS: Mild subsegmental bibasilar atelectasis. Imaged inferior cardiac chambers are unremarkable with coronary arterial disease. The liver, spleen and right adrenal gland are unremarkable. There is mild nodular thickening of the left adrenal gland suggesting hyperplasia. Moderate generalized pancreatic atrophy. Mild gallbladder distention without cholelithiasis or biliary ductal dilation identified. Nonspecific partially calcified aaron hepatis lymph nodes are again seen which are not enlarged. Mild nonspecific bilateral perinephric stranding. 2.9 cm ovoid low attenuating lesion of the interpolar right kidney suggesting cyst is unchanged. Exophytic low attenuating lesion within the inferior pole right kidney measures 1.8 cm and also suggests renal cyst. No renal calculi or obstructive uropathy. Urinary bladder is unremarkable. Prostate is mildly enlarged. Moderate atherosclerosis of the aorta. No bulky adenopathy. Mildly prominent lymph nodes of the mid mesentery are likely reactive. There is a small sliding-type hiatal hernia. Extensive colonic diverticulosis with associated areas of wall thickening within the mid sigmoid colon compatible with acute diverticulitis. There is nondistention throughout the majority of the colon. The appendix appears normal. Moderate mesenteric inflammatory changes are seen throughout the pelvis adjacent to the inflamed diverticulitis with additional inflammatory changes throughout the mid mesentery. There is moderate pneumoperitoneum with a large air and fluid containing abscess of the left lower abdomen and left pelvis which measures up to 10.9 x 13.1 x 14.3 cm with loops of small and large bowel draped around its periphery. This collection demonstrates a thin wall with areas of wall irregularity noted along its left lateral margin as seen on image 21 series 3 with air tracking from the collection into the adjacent omentum adjacent to the transverse colon. Additional smaller air and fluid-filled collections are seen anterior to the transverse colon as noted on image 224 series 3. There is a separate irregular air and fluid containing collection with ill-defined margins within the left lateral pelvis seen on image 304 series 3. Pneumoperitoneum appears to be tracking towards the sigmoid colon on image 344 series 3 which may reflect site of perforation. Dilated loops of small bowel within the pelvis with air-fluid levels are seen measuring up to 3.6 cm as seen on image 349 series 3 suggesting reactive ileus. Mild diastases recti with small fat filled periumbilical hernia, diastases 2.2 cm. Bones appear intact. Levoscoliosis of the lumbar spine. IMPRESSION: 1. Acute complicating sigmoid diverticulitis with pneumoperitoneum compatible with perforation. Additionally, there is a large air and fluid-filled collection of the left lower abdomen and left pelvis measuring up to 14.3 cm compatible with abscess. Multiple additional smaller abscesses are also present within the lower abdomen and pelvis as above. Surgical consultation is advised. 2. Dilated loops of ileum within the pelvis with air-fluid levels suggestive reactive ileus without evidence of proximal small bowel obstruction. 3. Small sliding-type hiatal hernia. 4. Additional findings as above. Electronically signed by: Ezio Pandya M.D. 10/24/2017 3:26 PM Dictated Date/Time: 10/24/2017 3:08 PM Assessment & Plan (1) Diverticulitis of intestine with perforation (2) Intra-abdominal abscess (3) Pneumoperitoneum Reason Critically Ill: Patient is an 67-year-old male who is transferred to the ICU for close observation and care s/p invasive abdominal surgery for transverse perforation with gross infection and abdominal contents. Cultures and cell counts sent for verification. PLAN: Neuro: * Continue Fentanyl for Pain and Versed for Agitation as needed * Plan to extubate in AM, medications for pain are PRN push, Goal RASS 0 for weaning trial in AM * Monitor for changes per ICU policy. GI/Nutrition: * Perforated Transverse Colon with intraabdominal infection; POD # 0 * Continue Zosyn, Vanc, and Fluconazole * Dr. Shea Surgeon * KARMA drains: Output 145cc/4hrs * Pt reports pain level improved from admission * OG tube to low intermittent suction * NPO currently * Protonix daily Resp: * AC 12/500/5/35% with adequate saturations * Continue End Tidal CO2 * Weaning trial for AM, ABG with trial * CXR in AM CV: * Arterial Line dampened and no longer correlating with peripheral cuff * SBP Peripherally 115 * Goal MAP > 65 * Hx of HTN * Holding hypertensives at this point as pressures are borderline low Fluids/Renal: * Normosol R at 100 * Strict I&Os * Output goal > 0.5mL/kg/hr * If output drops below above goal obtain bladder pressure * Daily labs ID: * Gross abd spillage with severely inflamed * Trend Lactic Acid, Fever Curve and CBC Heme: * Hemoglobin 12.5 down from 14.6 * Typed and crossed; monitor bloody output, vital signs, and daily CBC * Coags: PT/INR: 15.3/1.5 and aPTT 37.8 Endocrine: Accu-Checks per protocol, started insulin infusion for 2 blood sugars greater than 180 CCT: 45 Minutes; This time is exclusive of all separately billable procedures. Thank you for involving us in the care of this patient. Please refer to Dr. Abran Briggs's addendum for further recommendations. I have personally evaluated and examined this patient. I agree with assessment and plan of Sony Willis PA-C. Patient to remain intubated as he is at risk for severe sepsis and fluid shifts. Problem Qualifiers (1) Diverticulitis of intestine with perforation: Diverticulitis site: large intestine Diverticulitis bleeding: without bleeding Qualified Codes: K57.20 - Diverticulitis of large intestine with perforation and abscess without bleeding
[2017-10-24] MEDS: NORMOSOL R 1,000 ML IV SCH (21:12)
[2017-10-24] MEDS ORDERED: SODIUM CHLORIDE 0.9% 1000ML 1,000 ML IV SCH (21:15)
[2017-10-24] MEDS ORDERED: FLUCONAZOLE / NSS 200 MG in PREMIXED NSS 100 ML IV ONE (21:15)
[2017-10-24 21:30] LABS: HEMATOCRIT 36.6 % (42-52); HEMOGLOBIN 12.5 g/dL (14.0-18.0); MEAN CORPUSCULAR HEMOGLOBIN 31.4 pg (25-34); MEAN CORPUSCULAR HGB CONC 34.2 g/dl (32-36); MEAN PLATELET VOLUME 8.8 fL (7.4-10.4); PLATELET COUNT 397 K/uL (130-400); RED CELL DISTRIBUTION WIDTH CV 14.7 % (11.5-14.5); RED CELL DISTRIBUTION WIDTH SD 49.8 fL (36.4-46.3)
--- NOTE | 2017-10-24 21:31 | DIAGNOSTIC IMAGING REPORT ---
CHEST ONE VIEW PORTABLE HISTORY: 67 years-old Male intubation acute respiratory failure. COMPARISON: Chest radiograph 10/24/2017 TECHNIQUE: Portable supine AP view of the chest FINDINGS: Endotracheal tube overlies the midline, 3.7 cm superior to the leonela. Atherosclerosis of the aorta. Enteric tube courses below the diaphragm into the region of the gastric lumen. There is no pneumothorax or pleural effusion. Patchy left basilar opacities are noted. Mild right hemidiaphragmatic elevation. Right lung appears generally clear with mild subsegmental atelectasis/scarring of the right perihilar lung. Bones appear grossly intact. IMPRESSION: 1. Endotracheal tube overlies the midline, 3.7 cm superior to the leonela. Enteric tube courses into the region of the gastric lumen. 2. Patchy left basilar opacities suggest atelectasis. The above report was generated using voice recognition software. It may contain grammatical, syntax or spelling errors. Electronically signed by: Ezio Pandya M.D. 10/24/2017 9:29 PM Dictated Date/Time: 10/24/2017 9:25 PM
[2017-10-24] MEDS: MIDAZOLAM HCL 5 MG/ML 1 ML VIAL IV PRN (21:49)
[2017-10-24 21:54] LABS: ALBUMIN 1.2 gm/dl (3.4-5.0); CREATININE 1.21 mg/dl (0.60-1.40)
[2017-10-24 21:55] LABS: CALCIUM 7.4 mg/dl (8.5-10.1); POTASSIUM 4.1 mmol/L (3.5-5.1)
[2017-10-24] MEDS: FENTANYL CITRATE INJ 50 MCG/1 ML 2 ML VIAL IV PRN (23:06)
[2017-10-25] VITALS (13 sets, daily range): BP systolic 99–131; BP diastolic 65–90; PULSE 107–129; TEMP 36.5–36.8; O2SAT 95–100; Ht 175.3 cm; Wt 91.9 kg
[2017-10-25] MEDS: FENTANYL CITRATE INJ 50 MCG/1 ML 2 ML VIAL IV PRN ×6 (00:17→08:12)
[2017-10-25] MEDS: PIPERACILL/TAZOBAC IV 3.375 GM in DEXTROSE 5% 100ML 100 ML IV SCH ×4 (01:02→23:51)
[2017-10-25] MEDS: MIDAZOLAM HCL 5 MG/ML 1 ML VIAL IV PRN (01:42)
[2017-10-25] MEDS: NORMOSOL R 1,000 ML IV SCH ×3 (05:05→20:31)
[2017-10-25 05:34] LABS: HEMATOCRIT 36.2 % (42-52); HEMOGLOBIN 12.5 g/dL (14.0-18.0); MEAN CELL VOLUME 90.7 fL (80-100); MEAN CORPUSCULAR HEMOGLOBIN 31.3 pg (25-34); MEAN CORPUSCULAR HGB CONC 34.5 g/dl (32-36); MEAN PLATELET VOLUME 9.1 fL (7.4-10.4); PLATELET COUNT 401 K/uL (130-400); RED CELL DISTRIBUTION WIDTH CV 14.4 % (11.5-14.5); RED CELL DISTRIBUTION WIDTH SD 48.1 fL (36.4-46.3)
[2017-10-25 05:54] LABS: INR 1.4 (0.9-1.1); PTT PATIENT 33.1 SECONDS (21.0-31.0)
[2017-10-25 05:57] LABS: BASO % 0.1 %; BASO ABS # 0.01 K/uL (0-0.2); IG# 0.19 K/uL (0.00-0.02); LYMPH % 6.2 %; LYMPH ABS # 0.71 K/uL (1.2-3.4); MONO % 10.9 %; MONO ABS # 1.25 K/uL (0.11-0.59); NEUT % 81.1 %; NEUT ABS # 9.34 K/uL (1.4-6.5)
[2017-10-25 06:09] LABS: ALBUMIN 1.3 gm/dl (3.4-5.0); CALCIUM 7.2 mg/dl (8.5-10.1); CREATININE 1.44 mg/dl (0.60-1.40); TOTAL PROTEIN 5.2 gm/dl (6.4-8.2)
--- NOTE | 2017-10-25 06:48 | Anesthesiology Progress Note ---
Anesthesia Post Op Note Date & Time Oct 25, 2017 at 06:45 Vital Signs Vital Signs Past 12 Hours Date Time Temp Pulse Resp B/P (MAP) Pulse Ox O2 Delivery O2 Flow Rate FiO2 10/25/17 06:00 104/65 (78) 100 CPAP Mechanical Ventilator 10/25/17 05:35 35 10/25/17 04:44 35 10/25/17 04:00 35 10/25/17 04:00 36.8 121 22 99/77 (84) 100 Mechanical Ventilator 35 10/25/17 02:00 129 20 130/90 (103) 100 Mechanical Ventilator 50 10/25/17 01:55 100 10/25/17 01:14 36.5 20 113/72 97 Mechanical Ventilator 50 10/25/17 00:00 36.7 122 15 108/78 (88) 100 Mechanical Ventilator 50 10/24/17 23:59 50 10/24/17 23:59 50 10/24/17 22:15 100 10/24/17 21:00 36.5 127 20 98/63 (78) 100 Mechanical Ventilator 50 10/24/17 21:00 36.5 127 20 113/72 (85) 100 Mechanical Ventilator 50 10/24/17 20:50 36.2 130 20 107/68 (85) 100 Mechanical Ventilator 50 10/24/17 20:40 36.2 130 20 108/69 (85) 100 Mechanical Ventilator 50 10/24/17 20:30 36 159 20 140/80 (106) 100 Mechanical Ventilator 50 10/24/17 20:25 36 128 20 145/83 (121) 100 Mechanical Ventilator 100 10/24/17 20:20 130 173/80 (121) 100 Mechanical Ventilator 100 NIBP 10/24/17 20:15 35.8 20 165/123 100 Mechanical Ventilator 100 10/24/17 20:10 35.6 124 24 176/86 100 Mechanical Ventilator 100 10/24/17 20:10 100 Notes Pt Amnestic to Procedure: Yes Nausea / Vomiting: adequately controlled Pain: adequately controlled Airway Patency, RR, SpO2: stable & adequate, see Notes BP & HR: stable & adequate Hydration State: stable & adequate Anesthetic Complications: no major complications apparent Patient left intubated at the end of surgery due to preop lethargy and acidosis. Stable on ventilator.
--- NOTE | 2017-10-25 07:24 | DIAGNOSTIC IMAGING REPORT ---
SINGLE VIEW CHEST CLINICAL HISTORY: Respiratory failure. Status post abdominal surgery. FINDINGS: An AP, portable, upright chest radiograph is compared to study dated 10/24/2017. The examination is degraded by portable technique and patient rotation. Endotracheal and enteric tubes are unchanged in position. The cardiomediastinal silhouette is unremarkable. Foci of bibasilar scarring versus atelectasis are similar to previous. No airspace consolidation is seen typical for pneumonia and there is no large pleural effusion. No pneumothorax is seen. The skeletal structures are osteopenic. The bony thorax is grossly intact. IMPRESSION: 1. Stable lines and tubes. 2. No airspace consolidation is seen typical for pneumonia and there is no large pleural effusion. Electronically signed by: Adan Siddiqui M.D. 10/25/2017 7:23 AM Dictated Date/Time: 10/25/2017 7:21 AM
[2017-10-25] MEDS ORDERED: INFLUENZA ADMINISTRATION CHARGE ONE (08:00)
[2017-10-25] MEDS ORDERED: PNEUMOCOCCAL POLYSACCHARIDES 25 MCG/0.5 ML VIAL/SYR IM. ONE (08:00)
[2017-10-25] MEDS ORDERED: PNEUMOCOCCAL ADMINISTRATION CHARGE ONE (08:00)
[2017-10-25] MEDS ORDERED: INFLUENZA VIRUS QUAD VACCINE 0.5 ML SYR IM. ONE (08:00)
[2017-10-25] MEDS ORDERED: ENOXAPARIN 40 MG/0.4 ML SYR SQ SCH (09:00)
[2017-10-25] MEDS ORDERED: VANCOMYCIN INJ 1,000 MG in SODIUM CHLORIDE 0.9% 250ML 250 ML IV ONE (09:00)
[2017-10-25] MEDS: HYDROmorphone INJ 0.5 MG/0.5 ML SYR IV PRN (10:06)
--- NOTE | 2017-10-25 10:28 | Clinical Documentation Query ---
QUERY 1 OF [address] LAM, In your clinical opinion is this patient being managed for: ( ) Acute ischemic small bowel ( ) Chronic ischemic small bowel ( ) Not Agree ( x ) Other explanation of clinical findings (Please Explain) ( ) Unable to determine (Please Define) ( ) Need to Discuss The medical record reflects the following clinical findings, treatment, and risk factors. Clinical Indicators: 67 yo male presenting with perforated colon and ischemic small bowel. Several ICD 10 codes exist for the coding of ischemic small bowel. Please consider documentation of one of the above options for further specificity. Treatment: emergent OR, IV Zosyn, Vanc, and Fluconazole, IV fluids, ICU post op Risk Factors:diverticulitis, perforated colon with abscesses QUERY 2 OF 2 In your clinical opinion is this patient being managed for: ( x ) hyponatremia ( ) Not Agree ( ) Other explanation of clinical findings (Please Explain) ( ) Unable to determine (Please Define) ( ) Need to Discuss The medical record reflects the following clinical findings, treatment, and risk factors. Clinical Indicators: Initial Na 129, which has trended up to Na 133 Treatment: IV fluids including NSS boluses, serial PRP's Risk Factors: dehydration, perforated colon Please clarify and document your clinical opinion in the progress notes and discharge summary. Terms such as "probable", "suspected", "likely", "questionable", "possible", or "still to be ruled out" are acceptable. IF IN AGREEMENT, YOU MUST DOCUMENT ABOVE DIAGNOSTIC STATEMENT IN DAILY PROGRESS NOTES AND DISCHARGE SUMMARY. This document is not part of the patient's record. Thank You, Alyssia Serrano, RN [phone]
[2017-10-25] MEDS ORDERED: PANTOprazole INJ 40 MG in SYRINGE 0 ML IV SCH (11:00)
--- NOTE | 2017-10-25 11:23 | Critical Care Progress Note ---
Critical Care Progress Note Date of Service Oct 25, 2017. Attending Dr. Mims Subjective The patient is doing well, extubated successfully, he had minimal pain mainly with movement. Which is understandable. He denies any nausea or vomiting. No dizziness. No sore throat and no change in his voice. Objective 10/25/2017, the patient physical exam revealed stable vital signs, he does have history of hypertension but his blood pressure was 124/95. No stridor, heart examination S1-S2 regular rate and rhythm, distant breath sounds bilaterally, postop abdomen was silent follow sounds. No edema. Neurologic he is nonfocal and answering questions appropriately. Assessment & Plan #1 perforated viscus status post laparotomy. #2 brief respiratory failure however the patient and the pain extubate successfully today. #3 history of hypertension. #4 history of peptic ulcer disease. Plan: #1 continue with current treatment. IV fluid. Antibiotics as well. #2 if the patient showed no evidence of gram-positive cocci, vancomycin can be stopped after 48 hours. #3 blood pressure controlled with IV medications. #4 Oral intake. per surgery. #5 stop fentanyl as the patient being extubated. #6 Dilaudid for pain. #7 Zofran for nausea if needed. #8 Venodyne boots. #9 GI prophylaxis. #10 disposition plan for surgery. Case discussed with the staff on rounds and details. Critical care time spent with the patient was 35 minutes. Data Medications: Current Inpatient Medications Medications (Trade) Dose Ordered Sig/King Route Start Time Stop Time Status Last Admin Dose Admin Acetaminophen 100 ml @ 400 mls/hr Q8H PRN IV 10/24/17 20:15 11/23/17 20:14 Acetaminophen/ Hydrocodone Bitart ([place] 5/325 Tab) 1 tab Q4H PRN PO 10/24/17 20:15 11/07/17 20:14 Hydromorphone HCl (Dilaudid Inj) 0.5 mg Q3H PRN IV 10/24/17 20:15 11/07/17 20:14 10/25/17 10:06 0.5 MG Acetaminophen/ Hydrocodone Bitart ([place] 5/325 Tab) 2 tab Q4H PRN PO 10/24/17 20:15 11/07/17 20:14 Hydromorphone HCl (Dilaudid Inj) 1 mg Q3H PRN IV 10/24/17 20:15 11/07/17 20:14 Ondansetron HCl (Zofran Inj) 4 mg Q6H PRN IV 10/24/17 20:15 11/23/17 20:14 Enoxaparin Sodium (Lovenox Inj) 40 mg QAM SQ 10/25/17 09:00 11/24/17 08:59 Future Hold Pantoprazole Sodium 40 mg/ Syringe 10 ml @ 5 mls/min DAILY@11 IV 10/25/17 11:00 11/24/17 10:59 10/25/17 08:12 5 MLS/MIN Piperacillin Sod/ Tazobactam Sod 3.375 gm/Dextrose 115 ml @ 28.75 mls/ hr Q8H IV 10/24/17 22:00 11/03/17 21:59 10/25/17 08:11 28.75 MLS/HR Miscellaneous Information (Icu Protocol For Hyperglycemia) 1 ea PRN PRN N/A 10/24/17 21:00 10/26/17 20:59 Miscellaneous Information (Consult) 1 ea UD PRN N/A 10/24/17 21:00 11/23/17 20:59 Fluconazole/ Sodium Chloride 200 mg/Prmx 100 ml @ 100 mls/hr Q24H IV 10/25/17 20:00 11/04/17 19:59 Miscellaneous Information (Consult) 1 ea UD PRN N/A 10/24/17 21:00 11/23/17 20:59 Parenteral Electrolyte Solution 1,000 ml @ 125 mls/hr Q8H IV 10/24/17 21:15 11/23/17 21:14 10/25/17 10:53 125 MLS/HR Vital Signs: Date Time Temp Pulse Resp B/P (MAP) Pulse Ox O2 Delivery O2 Flow Rate FiO2 10/25/17 10:00 121 16 124/79 (94) 100 Nasal Cannula 3.0 10/25/17 08:00 36.5 125 18 118/86 (97) 100 Mechanical Ventilator 35 10/25/17 08:00 35 10/25/17 08:00 Mechanical Ventilator 35 10/25/17 07:35 35 10/25/17 06:00 104/65 (78) 100 CPAP Mechanical Ventilator 10/25/17 05:35 35 10/25/17 04:44 35 10/25/17 04:00 35 10/25/17 04:00 36.8 121 22 99/77 (84) 100 Mechanical Ventilator 35 10/25/17 02:00 129 20 130/90 (103) 100 Mechanical Ventilator 50 10/25/17 01:55 100 10/25/17 01:14 36.5 20 113/72 97 Mechanical Ventilator 50 10/25/17 00:00 36.7 122 15 108/78 (88) 100 Mechanical Ventilator 50 10/24/17 23:59 50 10/24/17 23:59 50 10/24/17 22:15 100 10/24/17 21:00 36.5 127 20 98/63 (78) 100 Mechanical Ventilator 50 10/24/17 21:00 36.5 127 20 113/72 (85) 100 Mechanical Ventilator 50 10/24/17 20:50 36.2 130 20 107/68 (85) 100 Mechanical Ventilator 50 10/24/17 20:40 36.2 130 20 108/69 (85) 100 Mechanical Ventilator 50 10/24/17 20:30 36 159 20 140/80 (106) 100 Mechanical Ventilator 50 10/24/17 20:25 36 128 20 145/83 (121) 100 Mechanical Ventilator 100 10/24/17 20:20 130 173/80 (121) 100 Mechanical Ventilator 100 NIBP 10/24/17 20:15 35.8 20 165/123 100 Mechanical Ventilator 100 10/24/17 20:10 35.6 124 24 176/86 100 Mechanical Ventilator 100 10/24/17 20:10 100 10/24/17 16:35 107 20 165/89 97 10/24/17 16:00 107 20 165/89 97 Room Air 10/24/17 15:34 105 19 140/91 98 Room Air 10/24/17 15:19 107 18 136/83 98 Room Air 10/24/17 14:30 111 10/24/17 14:20 37.2 122 19 129/89 96 Room Air Laboratory Results: Last 24 Hours Test 10/24/17 14:33 10/24/17 14:46 10/24/17 21:23 10/25/17 00:05 White Blood Count 11.71 K/uL 9.70 K/uL Red Blood Count 4.54 M/uL 3.98 M/uL Hemoglobin 14.6 g/dL 12.5 g/dL Hematocrit 41.1 % 36.6 % Mean Corpuscular Volume 90.5 fL 92.0 fL Mean Corpuscular Hemoglobin 32.2 pg 31.4 pg Mean Corpuscular Hemoglobin Concent 35.5 g/dl 34.2 g/dl Platelet Count 372 K/uL 397 K/uL Mean Platelet Volume 8.9 fL 8.8 fL Neutrophils (%) (Auto) 78.9 % Lymphocytes (%) (Auto) 6.2 % Monocytes (%) (Auto) 13.9 % Eosinophils (%) (Auto) 0.0 % Basophils (%) (Auto) 0.2 % Neutrophils # (Auto) 9.24 K/uL Lymphocytes # (Auto) 0.73 K/uL Monocytes # (Auto) 1.63 K/uL Eosinophils # (Auto) 0.00 K/uL Basophils # (Auto) 0.02 K/uL RDW Standard Deviation 47.3 fL 49.8 fL RDW Coefficient of Variation 14.3 % 14.7 % Immature Granulocyte % (Auto) 0.8 % Immature Granulocyte # (Auto) 0.09 K/uL Prothrombin Time 15.3 SECONDS Prothromb Time International Ratio 1.5 Activated Partial Thromboplast Time 37.8 SECONDS Partial Thromboplastin Ratio 1.5 Sodium Level 129 mmol/L 133 mmol/L Potassium Level 3.4 mmol/L 4.1 mmol/L Chloride Level 93 mmol/L 101 mmol/L Carbon Dioxide Level 16 mmol/L 17 mmol/L Anion Gap 20.0 mmol/L 15.0 mmol/L Blood Urea Nitrogen 28 mg/dl 20 mg/dl Creatinine 1.37 mg/dl 1.21 mg/dl Est Creatinine Clear Calc Drug Dose 56.0 ml/min 63.4 ml/min Estimated GFR () 61.0 70.9 Estimated GFR (Non- 52.6 61.1 BUN/Creatinine Ratio 20.1 16.7 Random Glucose 119 mg/dl 193 mg/dl Calcium Level 8.9 mg/dl 7.4 mg/dl Magnesium Level 2.2 mg/dl Total Bilirubin 0.5 mg/dl 0.7 mg/dl Direct Bilirubin 0.2 mg/dl Aspartate Amino Transf (AST/SGOT) 27 U/L 19 U/L Alanine Aminotransferase (ALT/SGPT) 27 U/L 15 U/L Alkaline Phosphatase 166 U/L 111 U/L Total Creatine Kinase 35 U/L Creatine Kinase MB 2.1 ng/ml Creatine Kinase MB Ratio 6.0 Troponin I 0.027 ng/ml Total Protein 8.1 gm/dl 5.0 gm/dl Albumin 2.1 gm/dl 1.2 gm/dl Lipase 207 U/L Bedside Lactic Acid Venous 1.58 mmol/L Lactic Acid Level 2.9 mmol/L Ionized Calcium 1.03 mmol/l Globulin 3.8 gm/dl Albumin/Globulin Ratio 0.3 Urine Color DK YELLOW Urine Appearance CLOUDY Urine pH 5.0 Urine Specific [place] 1.026 Urine Protein 1+ Urine Glucose (UA) TRACE Urine Ketones 1+ Urine Occult Blood TRACE Urine Nitrite NEG Urine Bilirubin NEG Urine Urobilinogen NEG Urine Leukocyte Esterase NEG Urine WBC (Auto) 10-30 /hpf Urine RBC (Auto) 0-4 /hpf Urine Hyaline Casts (Auto) 5-10 /lpf Urine Epithelial Cells (Auto) >30 /lpf Urine Bacteria (Auto) NEG Urine Renal Epithelial Cells /lpf Urine Crystals AMORPHOUS SEDIMENT Urine Pathogenic Casts 0-3 GRANULAR CASTS /lpf Urine Yeast (Auto) BUD W/ HYPHAE Urine Sperm (Auto) PRESENT Test 10/25/17 05:16 10/25/17 05:57 10/25/17 06:04 10/25/17 06:07 White Blood Count 11.50 K/uL Red Blood Count 3.99 M/uL Hemoglobin 12.5 g/dL Hematocrit 36.2 % Mean Corpuscular Volume 90.7 fL Mean Corpuscular Hemoglobin 31.3 pg Mean Corpuscular Hemoglobin Concent 34.5 g/dl Platelet Count 401 K/uL Mean Platelet Volume 9.1 fL Neutrophils (%) (Auto) 81.1 % Lymphocytes (%) (Auto) 6.2 % Monocytes (%) (Auto) 10.9 % Eosinophils (%) (Auto) 0.0 % Basophils (%) (Auto) 0.1 % Neutrophils # (Auto) 9.34 K/uL Lymphocytes # (Auto) 0.71 K/uL Monocytes # (Auto) 1.25 K/uL Eosinophils # (Auto) 0.00 K/uL Basophils # (Auto) 0.01 K/uL RDW Standard Deviation 48.1 fL RDW Coefficient of Variation 14.4 % Immature Granulocyte % (Auto) 1.7 % Immature Granulocyte # (Auto) 0.19 K/uL Prothrombin Time 14.7 SECONDS Prothromb Time International Ratio 1.4 Activated Partial Thromboplast Time 33.1 SECONDS Partial Thromboplastin Ratio 1.3 Sodium Level 133 mmol/L Potassium Level 4.0 mmol/L Chloride Level 101 mmol/L Carbon Dioxide Level 18 mmol/L Anion Gap 14.0 mmol/L Blood Urea Nitrogen 23 mg/dl Creatinine 1.44 mg/dl Est Creatinine Clear Calc Drug Dose 54.3 ml/min Estimated GFR () 57.4 Estimated GFR (Non- 49.5 BUN/Creatinine Ratio 16.0 Random Glucose 179 mg/dl Calcium Level 7.2 mg/dl Phosphorus Level 3.0 mg/dl Magnesium Level 1.8 mg/dl Total Bilirubin 1.0 mg/dl Direct Bilirubin 0.6 mg/dl Aspartate Amino Transf (AST/SGOT) 17 U/L Alanine Aminotransferase (ALT/SGPT) 15 U/L Alkaline Phosphatase 105 U/L Total Protein 5.2 gm/dl Albumin 1.3 gm/dl Blood Gas Specimen Type ARTERIAL ARTERIAL Blood Gas Sample Site Art Line L Radial Blood Gas Patient Temperature 36.5 36.5 Bedside Blood Gas pH (LAB) 7.52 7.47 Bedside Blood Gas pCO2 (LAB) 8 mmHg 22 mmHg Bedside Blood Gas pO2 (LAB) 125 mmHg 147 mmHg Bedside Blood Gas HCO3 (LAB) 7 meq/L 17 meq/L Bedside Blood Gas Total CO2 7 mEq/l 17 mEq/l Bedside Blood Gas Base Excess (LAB) -16.0 meq/L -7.0 meq/L Bedside Blood Gas O2 Saturation 99.0 % 99.0 % Oxygen Saturation (Pulse Oximetry) 99 % 99 % Bayron Test ACCEPTABLE ACCEPTABLE Oxygen Delivery Device Ventilator Ventilator Bedside FiO2 35 % 35 % Blood Gas PEEP 5 5 Blood Gas Pressure Support 5 Lactic Acid Level 3.0 mmol/L Test 10/25/17 06:31 Bedside Glucose 178 mg/dl
--- NOTE | 2017-10-25 13:00 | Surgery Progress Note ---
Surgery Progress Note Date of Service Oct 25, 2017. Subjective Post OP Day: 1 extubated this AM. looks remarkably well. he is requesting ice/water. states he feels much better than he did yesterday. Objective Vital Signs: Date Time Temp Pulse Resp B/P (MAP) Pulse Ox O2 Delivery O2 Flow Rate FiO2 10/25/17 12:00 36.6 116 16 123/74 (90) 100 Nasal Cannula 2.0 10/25/17 12:00 Nasal Cannula 2.0 10/25/17 10:00 121 16 124/79 (94) 100 Nasal Cannula 3.0 10/25/17 08:00 36.5 125 18 118/86 (97) 100 Mechanical Ventilator 35 10/25/17 08:00 35 10/25/17 08:00 Mechanical Ventilator 35 10/25/17 07:35 35 10/25/17 06:00 104/65 (78) 100 CPAP Mechanical Ventilator 10/25/17 05:35 35 10/25/17 04:44 35 10/25/17 04:00 35 10/25/17 04:00 36.8 121 22 99/77 (84) 100 Mechanical Ventilator 35 10/25/17 02:00 129 20 130/90 (103) 100 Mechanical Ventilator 50 10/25/17 01:55 100 10/25/17 01:14 36.5 20 113/72 97 Mechanical Ventilator 50 10/25/17 00:00 36.7 122 15 108/78 (88) 100 Mechanical Ventilator 50 10/24/17 23:59 50 10/24/17 23:59 50 10/24/17 22:15 100 10/24/17 21:00 36.5 127 20 98/63 (78) 100 Mechanical Ventilator 50 10/24/17 21:00 36.5 127 20 113/72 (85) 100 Mechanical Ventilator 50 10/24/17 20:50 36.2 130 20 107/68 (85) 100 Mechanical Ventilator 50 10/24/17 20:40 36.2 130 20 108/69 (85) 100 Mechanical Ventilator 50 10/24/17 20:30 36 159 20 140/80 (106) 100 Mechanical Ventilator 50 10/24/17 20:25 36 128 20 145/83 (121) 100 Mechanical Ventilator 100 10/24/17 20:20 130 173/80 (121) 100 Mechanical Ventilator 100 NIBP 10/24/17 20:15 35.8 20 165/123 100 Mechanical Ventilator 100 10/24/17 20:10 35.6 124 24 176/86 100 Mechanical Ventilator 100 10/24/17 20:10 100 10/24/17 16:35 107 20 165/89 97 10/24/17 16:00 107 20 165/89 97 Room Air 10/24/17 15:34 105 19 140/91 98 Room Air 10/24/17 15:19 107 18 136/83 98 Room Air 10/24/17 14:30 111 10/24/17 14:20 37.2 122 19 129/89 96 Room Air General Appearance: no apparent distress Abdomen: soft, + pertinent finding (stoma's look good. KARMA's with serous output. ) Incision(s): clean, intact Laboratory Results: Results Past 24 Hours Test 10/24/17 14:33 10/24/17 14:46 10/24/17 21:23 10/25/17 00:05 Range/Units White Blood Count 11.71 9.70 4.8-10.8 K/uL Red Blood Count 4.54 3.98 4.7-6.1 M/uL Hemoglobin 14.6 12.5 14.0-18.0 g/dL Hematocrit 41.1 36.6 42-52 % Mean Corpuscular Volume 90.5 92.0 80-100 fL Mean Corpuscular Hemoglobin 32.2 31.4 25-34 pg Mean Corpuscular Hemoglobin Concent 35.5 34.2 32-36 g/dl Platelet Count 372 397 130-400 K/uL Mean Platelet Volume 8.9 8.8 7.4-10.4 fL Neutrophils (%) (Auto) 78.9 % Lymphocytes (%) (Auto) 6.2 % Monocytes (%) (Auto) 13.9 % Eosinophils (%) (Auto) 0.0 % Basophils (%) (Auto) 0.2 % Neutrophils # (Auto) 9.24 1.4-6.5 K/uL Lymphocytes # (Auto) 0.73 1.2-3.4 K/uL Monocytes # (Auto) 1.63 0.11-0.59 K/uL Eosinophils # (Auto) 0.00 0-0.5 K/uL Basophils # (Auto) 0.02 0-0.2 K/uL RDW Standard Deviation 47.3 49.8 36.4-46.3 fL RDW Coefficient of Variation 14.3 14.7 11.5-14.5 % Immature Granulocyte % (Auto) 0.8 % Immature Granulocyte # (Auto) 0.09 0.00-0.02 K/uL Prothrombin Time 15.3 9.0-12.0 SECONDS Prothromb Time International Ratio 1.5 0.9-1.1 Activated Partial Thromboplast Time 37.8 21.0-31.0 SECONDS Partial Thromboplastin Ratio 1.5 Sodium Level 129 133 136-145 mmol/L Potassium Level 3.4 4.1 3.5-5.1 mmol/L Chloride Level 93 101 98-107 mmol/L Carbon Dioxide Level 16 17 21-32 mmol/L Anion Gap 20.0 15.0 3-11 mmol/L Blood Urea Nitrogen 28 20 7-18 mg/dl Creatinine 1.37 1.21 0.60-1.40 mg/dl Est Creatinine Clear Calc Drug Dose 56.0 63.4 ml/min Estimated GFR () 61.0 70.9 Estimated GFR (Non- 52.6 61.1 BUN/Creatinine Ratio 20.1 16.7 10-20 Random Glucose 119 193 70-99 mg/dl Calcium Level 8.9 7.4 8.5-10.1 mg/dl Magnesium Level 2.2 1.8-2.4 mg/dl Total Bilirubin 0.5 0.7 0.2-1 mg/dl Direct Bilirubin 0.2 0-0.2 mg/dl Aspartate Amino Transf (AST/SGOT) 27 19 15-37 U/L Alanine Aminotransferase (ALT/SGPT) 27 15 12-78 U/L Alkaline Phosphatase 166 111 45-117 U/L Total Creatine Kinase 35 39-308 U/L Creatine Kinase MB 2.1 0.5-3.6 ng/ml Creatine Kinase MB Ratio 6.0 0-3.0 Troponin I 0.027 0-0.045 ng/ml Total Protein 8.1 5.0 6.4-8.2 gm/dl Albumin 2.1 1.2 3.4-5.0 gm/dl Lipase 207 73-393 U/L Bedside Lactic Acid Venous 1.58 0.90-1.70 mmol/L Lactic Acid Level 2.9 0.4-2.0 mmol/L Ionized Calcium 1.03 1.12-1.32 mmol/l Globulin 3.8 2.5-4.0 gm/dl Albumin/Globulin Ratio 0.3 0.9-2 Urine Color DK YELLOW Urine Appearance CLOUDY CLEAR Urine pH 5.0 4.5-7.5 Urine Specific [place] 1.026 1.000-1.030 Urine Protein 1+ NEG Urine Glucose (UA) TRACE NEG Urine Ketones 1+ NEG Urine Occult Blood TRACE NEG Urine Nitrite NEG NEG Urine Bilirubin NEG NEG Urine Urobilinogen NEG NEG Urine Leukocyte Esterase NEG NEG Urine WBC (Auto) 10-30 0-5 /hpf Urine RBC (Auto) 0-4 0-4 /hpf Urine Hyaline Casts (Auto) 5-10 0-5 /lpf Urine Epithelial Cells (Auto) >30 0-5 /lpf Urine Bacteria (Auto) NEG NEG Urine Renal Epithelial Cells 0-5 /lpf Urine Crystals AMORPHOUS SEDIMENT NONE PRSENT Urine Pathogenic Casts 0-3 GRANULAR CASTS 0 /lpf Urine Yeast (Auto) BUD W/ HYPHAE NONE PRSENT Urine Sperm (Auto) PRESENT NOT PRESENT Test 10/25/17 05:16 10/25/17 05:57 10/25/17 06:04 10/25/17 06:07 Range/Units White Blood Count 11.50 4.8-10.8 K/uL Red Blood Count 3.99 4.7-6.1 M/uL Hemoglobin 12.5 14.0-18.0 g/dL Hematocrit 36.2 42-52 % Mean Corpuscular Volume 90.7 80-100 fL Mean Corpuscular Hemoglobin 31.3 25-34 pg Mean Corpuscular Hemoglobin Concent 34.5 32-36 g/dl Platelet Count 401 130-400 K/uL Mean Platelet Volume 9.1 7.4-10.4 fL Neutrophils (%) (Auto) 81.1 % Lymphocytes (%) (Auto) 6.2 % Monocytes (%) (Auto) 10.9 % Eosinophils (%) (Auto) 0.0 % Basophils (%) (Auto) 0.1 % Neutrophils # (Auto) 9.34 1.4-6.5 K/uL Lymphocytes # (Auto) 0.71 1.2-3.4 K/uL Monocytes # (Auto) 1.25 0.11-0.59 K/uL Eosinophils # (Auto) 0.00 0-0.5 K/uL Basophils # (Auto) 0.01 0-0.2 K/uL RDW Standard Deviation 48.1 36.4-46.3 fL RDW Coefficient of Variation 14.4 11.5-14.5 % Immature Granulocyte % (Auto) 1.7 % Immature Granulocyte # (Auto) 0.19 0.00-0.02 K/uL Prothrombin Time 14.7 9.0-12.0 SECONDS Prothromb Time International Ratio 1.4 0.9-1.1 Activated Partial Thromboplast Time 33.1 21.0-31.0 SECONDS Partial Thromboplastin Ratio 1.3 Sodium Level 133 136-145 mmol/L Potassium Level 4.0 3.5-5.1 mmol/L Chloride Level 101 98-107 mmol/L Carbon Dioxide Level 18 21-32 mmol/L Anion Gap 14.0 3-11 mmol/L Blood Urea Nitrogen 23 7-18 mg/dl Creatinine 1.44 0.60-1.40 mg/dl Est Creatinine Clear Calc Drug Dose 54.3 ml/min Estimated GFR () 57.4 Estimated GFR (Non- 49.5 BUN/Creatinine Ratio 16.0 10-20 Random Glucose 179 70-99 mg/dl Calcium Level 7.2 8.5-10.1 mg/dl Phosphorus Level 3.0 2.5-4.9 mg/dl Magnesium Level 1.8 1.8-2.4 mg/dl Total Bilirubin 1.0 0.2-1 mg/dl Direct Bilirubin 0.6 0-0.2 mg/dl Aspartate Amino Transf (AST/SGOT) 17 15-37 U/L Alanine Aminotransferase (ALT/SGPT) 15 12-78 U/L Alkaline Phosphatase 105 45-117 U/L Total Protein 5.2 6.4-8.2 gm/dl Albumin 1.3 3.4-5.0 gm/dl Blood Gas Specimen Type ARTERIAL ARTERIAL Blood Gas Sample Site Art Line L Radial Blood Gas Patient Temperature 36.5 36.5 Bedside Blood Gas pH (LAB) 7.52 7.47 7.35-7.45 Bedside Blood Gas pCO2 (LAB) 8 22 35-46 mmHg Bedside Blood Gas pO2 (LAB) 125 147 80-95 mmHg Bedside Blood Gas HCO3 (LAB) 7 17 19-24 meq/L Bedside Blood Gas Total CO2 7 17 24-31 mEq/l Bedside Blood Gas Base Excess (LAB) -16.0 -7.0 -9-1.8 meq/L Bedside Blood Gas O2 Saturation 99.0 99.0 90-95 % Oxygen Saturation (Pulse Oximetry) 99 99 % Bayron Test ACCEPTABLE ACCEPTABLE Oxygen Delivery Device Ventilator Ventilator Bedside FiO2 35 35 % Blood Gas PEEP 5 5 Blood Gas Pressure Support 5 Lactic Acid Level 3.0 0.4-2.0 mmol/L Test 10/25/17 06:31 10/25/17 10:50 Range/Units Bedside Glucose 178 169 70-99 mg/dl Microbiology Results 10/24/17 MRSA DNA Surveillance Screen - Final, Complete Specimen Negative for MRSA by DNA Probe 10/24/17 Gram Stain - Final, Resulted 10/24/17 Bacterial Culture - Preliminary, Resulted Gram Negative Bacilli Alpha Strep. Not Enterococcus Assessment & Plan 10/25/17 doing better than predicted at this point ok to remove ngt and try sips continue antibiotics supportive care appreciate ICU help
[2017-10-25] MEDS: HYDROmorphone INJ 1 MG/ML SYR IV PRN ×3 (13:45→23:51)
--- NOTE | 2017-10-25 15:05 | Pharmacy Progress Note ---
Pharmacy Antibiotic Consult Date of Service: Oct 25, 2017. Pharmacy Dosing Scope Pharmacy is consulted to initiate vancomycin IV dosing therapy, order appropriate labs and adjust drug dose/frequency. Subjective The patient is a 67 year old male admitted on Oct 24, 2017 at 20:27. Objective Height (Feet): 5 Height (Inches): 9.00 Weight (Kilograms): 89.300 Lab Results (24hrs): Test 10/24/17 21:23 10/25/17 00:05 10/25/17 05:16 10/25/17 05:57 White Blood Count 9.70 K/uL (4.8-10.8) 11.50 K/uL (4.8-10.8) Red Blood Count 3.98 M/uL (4.7-6.1) 3.99 M/uL (4.7-6.1) Hemoglobin 12.5 g/dL (14.0-18.0) 12.5 g/dL (14.0-18.0) Hematocrit 36.6 % (42-52) 36.2 % (42-52) Mean Corpuscular Volume 92.0 fL (80-100) 90.7 fL (80-100) Mean Corpuscular Hemoglobin 31.4 pg (25-34) 31.3 pg (25-34) Mean Corpuscular Hemoglobin Concent 34.2 g/dl (32-36) 34.5 g/dl (32-36) RDW Standard Deviation 49.8 fL (36.4-46.3) 48.1 fL (36.4-46.3) RDW Coefficient of Variation 14.7 % (11.5-14.5) 14.4 % (11.5-14.5) Platelet Count 397 K/uL (130-400) 401 K/uL (130-400) Mean Platelet Volume 8.8 fL (7.4-10.4) 9.1 fL (7.4-10.4) Sodium Level 133 mmol/L (136-145) 133 mmol/L (136-145) Potassium Level 4.1 mmol/L (3.5-5.1) 4.0 mmol/L (3.5-5.1) Chloride Level 101 mmol/L (98-107) 101 mmol/L (98-107) Carbon Dioxide Level 17 mmol/L (21-32) 18 mmol/L (21-32) Anion Gap 15.0 mmol/L (3-11) 14.0 mmol/L (3-11) Blood Urea Nitrogen 20 mg/dl (7-18) 23 mg/dl (7-18) Creatinine 1.21 mg/dl (0.60-1.40) 1.44 mg/dl (0.60-1.40) Est Creatinine Clear Calc Drug Dose 63.4 ml/min 54.3 ml/min Estimated GFR () 70.9 57.4 Estimated GFR (Non- 61.1 49.5 BUN/Creatinine Ratio 16.7 (10-20) 16.0 (10-20) Random Glucose 193 mg/dl (70-99) 179 mg/dl (70-99) Lactic Acid Level 2.9 mmol/L (0.4-2.0) Calcium Level 7.4 mg/dl (8.5-10.1) 7.2 mg/dl (8.5-10.1) Ionized Calcium 1.03 mmol/l (1.12-1.32) Total Bilirubin 0.7 mg/dl (0.2-1) 1.0 mg/dl (0.2-1) Aspartate Amino Transf (AST/SGOT) 19 U/L (15-37) 17 U/L (15-37) Alanine Aminotransferase (ALT/SGPT) 15 U/L (12-78) 15 U/L (12-78) Alkaline Phosphatase 111 U/L (45-117) 105 U/L (45-117) Total Protein 5.0 gm/dl (6.4-8.2) 5.2 gm/dl (6.4-8.2) Albumin 1.2 gm/dl (3.4-5.0) 1.3 gm/dl (3.4-5.0) Globulin 3.8 gm/dl (2.5-4.0) Albumin/Globulin Ratio 0.3 (0.9-2) Urine Color DK YELLOW Urine Appearance CLOUDY (CLEAR) Urine pH 5.0 (4.5-7.5) Urine Specific [place] 1.026 (1.000-1.030) Urine Protein 1+ (NEG) Urine Glucose (UA) TRACE (NEG) Urine Ketones 1+ (NEG) Urine Occult Blood TRACE (NEG) Urine Nitrite NEG (NEG) Urine Bilirubin NEG (NEG) Urine Urobilinogen NEG (NEG) Urine Leukocyte Esterase NEG (NEG) Urine WBC (Auto) 10-30 /hpf (0-5) Urine RBC (Auto) 0-4 /hpf (0-4) Urine Hyaline Casts (Auto) 5-10 /lpf (0-5) Urine Epithelial Cells (Auto) >30 /lpf (0-5) Urine Bacteria (Auto) NEG (NEG) Urine Renal Epithelial Cells /lpf (0-5) Urine Crystals AMORPHOUS SEDIMENT (NONE Urine Pathogenic Casts 0-3 GRANULAR CASTS /lpf (0) Urine Yeast (Auto) BUD W/ HYPHAE (NONE PRSENT) Urine Sperm (Auto) PRESENT (NOT PRESENT) Neutrophils (%) (Auto) 81.1 % Lymphocytes (%) (Auto) 6.2 % Monocytes (%) (Auto) 10.9 % Eosinophils (%) (Auto) 0.0 % Basophils (%) (Auto) 0.1 % Neutrophils # (Auto) 9.34 K/uL (1.4-6.5) Lymphocytes # (Auto) 0.71 K/uL (1.2-3.4) Monocytes # (Auto) 1.25 K/uL (0.11-0.59) Eosinophils # (Auto) 0.00 K/uL (0-0.5) Basophils # (Auto) 0.01 K/uL (0-0.2) Immature Granulocyte % (Auto) 1.7 % Immature Granulocyte # (Auto) 0.19 K/uL (0.00-0.02) Prothrombin Time 14.7 SECONDS (9.0-12.0) Prothromb Time International Ratio 1.4 (0.9-1.1) Activated Partial Thromboplast Time 33.1 SECONDS (21.0-31.0) Partial Thromboplastin Ratio 1.3 Phosphorus Level 3.0 mg/dl (2.5-4.9) Magnesium Level 1.8 mg/dl (1.8-2.4) Direct Bilirubin 0.6 mg/dl (0-0.2) Blood Gas Specimen Type ARTERIAL Blood Gas Sample Site Art Line Blood Gas Patient Temperature 36.5 Bedside Blood Gas pH (LAB) 7.52 (7.35-7.45) Bedside Blood Gas pCO2 (LAB) 8 mmHg (35-46) Bedside Blood Gas pO2 (LAB) 125 mmHg (80-95) Bedside Blood Gas HCO3 (LAB) 7 meq/L (19-24) Bedside Blood Gas Total CO2 7 mEq/l (24-31) Bedside Blood Gas Base Excess (LAB) -16.0 meq/L (-9-1.8) Bedside Blood Gas O2 Saturation 99.0 % (90-95) Oxygen Saturation (Pulse Oximetry) 99 % Bayron Test ACCEPTABLE Oxygen Delivery Device Ventilator Bedside FiO2 35 % Blood Gas PEEP 5 Blood Gas Pressure Support 5 Test 10/25/17 06:04 10/25/17 06:07 10/25/17 06:31 10/25/17 10:50 Lactic Acid Level 3.0 mmol/L (0.4-2.0) Blood Gas Specimen Type ARTERIAL Blood Gas Sample Site L Radial Blood Gas Patient Temperature 36.5 Bedside Blood Gas pH (LAB) 7.47 (7.35-7.45) Bedside Blood Gas pCO2 (LAB) 22 mmHg (35-46) Bedside Blood Gas pO2 (LAB) 147 mmHg (80-95) Bedside Blood Gas HCO3 (LAB) 17 meq/L (19-24) Bedside Blood Gas Total CO2 17 mEq/l (24-31) Bedside Blood Gas Base Excess (LAB) -7.0 meq/L (-9-1.8) Bedside Blood Gas O2 Saturation 99.0 % (90-95) Oxygen Saturation (Pulse Oximetry) 99 % Bayron Test ACCEPTABLE Oxygen Delivery Device Ventilator Bedside FiO2 35 % Blood Gas PEEP 5 Bedside Glucose 178 mg/dl (70-99) 169 mg/dl (70-99) Assessment & Plan Assessment * 67 yo M s/p intra-abdominal surgery for perforated colon / significant intra- abdominal abscess. On Zosyn, vancomycin, fluconazole. * Renal * Unclear what baseline SCr is - was 0.9 back in 2014 but no data since that time * SCr trending up, although only slightly at this time - 1.2 to 1.4 mg/dL. * OK to give additional vancomycin at this time 2nd significant infectious etiology, but will only give as a one-time 15 mg/kg dose. Will check random 12 hours later to make sure patient is clearing vancomycin appropriately prior to giving additional vancomycin. Plan * Vancomycin 1000 mg IV x1 * Random 10/25 @ 2100 Pharmacy will continue to follow and will adjust dose/frequency as necessary. Thank you
[2017-10-25] MEDS ORDERED: FLUCONAZOLE / NSS 200 MG in PREMIXED NSS 100 ML IV SCH (20:00)
[2017-10-25] MEDS ORDERED: VANCOMYCIN INJ 1,000 MG in SODIUM CHLORIDE 0.9% 250ML 250 ML IV SCH (23:00)
[2017-10-26] VITALS (12 sets, daily range): BP systolic 113–145; BP diastolic 65–85; PULSE 97–111; TEMP 36.5–37.1; O2SAT 94–100
[2017-10-26] MEDS: HYDROmorphone INJ 1 MG/ML SYR IV PRN ×5 (03:03→22:29)
[2017-10-26] MEDS: NORMOSOL R 1,000 ML IV SCH ×3 (04:30→20:38)
[2017-10-26 05:58] LABS: INR 1.6 (0.9-1.1); PTT PATIENT 40.4 SECONDS (21.0-31.0)
[2017-10-26 06:01] LABS: HEMATOCRIT 24.9 % (42-52); HEMOGLOBIN 8.7 g/dL (14.0-18.0); MEAN CELL VOLUME 89.6 fL (80-100); MEAN CORPUSCULAR HEMOGLOBIN 31.3 pg (25-34); MEAN CORPUSCULAR HGB CONC 34.9 g/dl (32-36); MEAN PLATELET VOLUME 8.2 fL (7.4-10.4); PLATELET COUNT 267 K/uL (130-400); RED CELL DISTRIBUTION WIDTH CV 14.3 % (11.5-14.5); RED CELL DISTRIBUTION WIDTH SD 47.8 fL (36.4-46.3); WHITE BLOOD COUNT 11.37 K/uL (4.8-10.8)
[2017-10-26 06:18] LABS: BASO % 0.1 %; BASO ABS # 0.01 K/uL (0-0.2); IG# 0.15 K/uL (0.00-0.02); LYMPH ABS # 1.02 K/uL (1.2-3.4); MONO % 10.8 %; MONO ABS # 1.23 K/uL (0.11-0.59); NEUT % 78.8 %; NEUT ABS # 8.96 K/uL (1.4-6.5)
[2017-10-26 06:28] LABS: ALBUMIN 1.1 gm/dl (3.4-5.0); CALCIUM 6.8 mg/dl (8.5-10.1); CREATININE 1.21 mg/dl (0.60-1.40); POTASSIUM 3.4 mmol/L (3.5-5.1)
[2017-10-26 06:38] LABS: TOTAL PROTEIN 4.7 gm/dl (6.4-8.2)
[2017-10-26] MEDS: PIPERACILL/TAZOBAC IV 3.375 GM in DEXTROSE 5% 100ML 100 ML IV SCH (07:55)
--- NOTE | 2017-10-26 08:02 | DIAGNOSTIC IMAGING REPORT ---
CHEST ONE VIEW PORTABLE HISTORY: f/u s/p extubation COMPARISON: Chest 10/25/2017. FINDINGS: The endotracheal tube is been removed. There are low lung volumes with bibasilar linear densities suggestive of subsegmental atelectasis. This is not significantly changed. No new focal lung consolidations. No pleural effusions. No pneumothorax. The heart remains stable in size. IMPRESSION: Low lung volumes with bibasilar linear densities suggesting subsegmental atelectasis. This is not significantly changed. Status post extubation. Electronically signed by: Chidi Archuleta M.D. 10/26/2017 8:00 AM Dictated Date/Time: 10/26/2017 7:59 AM
--- NOTE | 2017-10-26 08:38 | Surgery Progress Note ---
Surgery Progress Note Date of Service Oct 26, 2017. Subjective Post OP Day: 2 + pain controlled, + diet (ice/water), No complaints, No nausea Objective Vital Signs: Date Time Temp Pulse Resp B/P (MAP) Pulse Ox O2 Delivery O2 Flow Rate FiO2 10/26/17 06:00 103 15 120/73 (89) 96 Room Air 10/26/17 04:00 36.7 103 14 113/65 (81) 95 Room Air 10/26/17 04:00 Room Air 10/26/17 02:00 104 16 124/73 (90) 95 Room Air 10/26/17 00:01 36.5 106 16 122/75 (91) 95 Room Air 10/25/17 23:59 Room Air 10/25/17 22:00 107 17 131/70 (90) 97 Room Air 10/25/17 20:00 36.6 108 16 115/67 (83) 95 Room Air 10/25/17 20:00 Room Air 10/25/17 18:01 113 20 120/74 (89) 97 Room Air 10/25/17 16:00 36.5 111 20 126/77 (93) 97 Room Air 10/25/17 16:00 Room Air 10/25/17 14:00 116 16 114/76 (89) 96 Room Air 10/25/17 12:00 36.6 116 16 123/74 (90) 100 Nasal Cannula 2.0 10/25/17 12:00 Nasal Cannula 2.0 10/25/17 10:00 121 16 124/79 (94) 100 Nasal Cannula 3.0 Physical Exam: KARMA drainage (20/10), urine output (400) Abdomen: soft Incision(s): intact (dressing), findings (ostomy edematous, no output) Laboratory Results: Results Past 24 Hours Test 10/25/17 10:50 10/25/17 16:09 10/25/17 21:00 10/25/17 22:47 Range/Units Bedside Glucose 169 157 150 70-99 mg/dl Random Vancomycin Level 15.7 mcg/ml Test 10/26/17 05:37 10/26/17 06:35 Range/Units White Blood Count 11.37 4.8-10.8 K/uL Red Blood Count 2.78 4.7-6.1 M/uL Hemoglobin 8.7 14.0-18.0 g/dL Hematocrit 24.9 42-52 % Mean Corpuscular Volume 89.6 80-100 fL Mean Corpuscular Hemoglobin 31.3 25-34 pg Mean Corpuscular Hemoglobin Concent 34.9 32-36 g/dl Platelet Count 267 130-400 K/uL Mean Platelet Volume 8.2 7.4-10.4 fL Neutrophils (%) (Auto) 78.8 % Lymphocytes (%) (Auto) 9.0 % Monocytes (%) (Auto) 10.8 % Eosinophils (%) (Auto) 0.0 % Basophils (%) (Auto) 0.1 % Neutrophils # (Auto) 8.96 1.4-6.5 K/uL Lymphocytes # (Auto) 1.02 1.2-3.4 K/uL Monocytes # (Auto) 1.23 0.11-0.59 K/uL Eosinophils # (Auto) 0.00 0-0.5 K/uL Basophils # (Auto) 0.01 0-0.2 K/uL RDW Standard Deviation 47.8 36.4-46.3 fL RDW Coefficient of Variation 14.3 11.5-14.5 % Immature Granulocyte % (Auto) 1.3 % Immature Granulocyte # (Auto) 0.15 0.00-0.02 K/uL Red Blood Cell Morphology Unremarkable Prothrombin Time 16.8 9.0-12.0 SECONDS Prothromb Time International Ratio 1.6 0.9-1.1 Activated Partial Thromboplast Time 40.4 21.0-31.0 SECONDS Partial Thromboplastin Ratio 1.6 Sodium Level 131 136-145 mmol/L Potassium Level 3.4 3.5-5.1 mmol/L Chloride Level 99 98-107 mmol/L Carbon Dioxide Level 22 21-32 mmol/L Anion Gap 10.0 3-11 mmol/L Blood Urea Nitrogen 23 7-18 mg/dl Creatinine 1.21 0.60-1.40 mg/dl Est Creatinine Clear Calc Drug Dose 64.6 ml/min Estimated GFR () 70.9 Estimated GFR (Non- 61.1 BUN/Creatinine Ratio 18.7 10-20 Random Glucose 121 70-99 mg/dl Lactic Acid Level 1.0 0.4-2.0 mmol/L Calcium Level 6.8 8.5-10.1 mg/dl Phosphorus Level 2.0 2.5-4.9 mg/dl Magnesium Level 1.9 1.8-2.4 mg/dl Total Bilirubin 0.8 0.2-1 mg/dl Direct Bilirubin 0.6 0-0.2 mg/dl Aspartate Amino Transf (AST/SGOT) 22 15-37 U/L Alanine Aminotransferase (ALT/SGPT) 15 12-78 U/L Alkaline Phosphatase 71 45-117 U/L Total Protein 4.7 6.4-8.2 gm/dl Albumin 1.1 3.4-5.0 gm/dl Bedside Glucose 131 70-99 mg/dl Assessment & Plan Exploratory Laparotomy, Drainage of Multiple Abdominal Abscesses, Partial Transverse Colectomy, Partial Small Bowel Resection, Creation of Colostomy and Mucous Fistula WBC stable, H&H down although nearly 9 L positive afebrile, HR 100's down from 120's on Vanco, Zosyn,Diflucan keep on sips of clears
[2017-10-26] MEDS ORDERED: POTASSIUM PHOS 3 MMOL/1 ML INFUSION IV STA (08:39)
[2017-10-26] MEDS ORDERED: POTASSIUM PHOSPHATE INJ 21 MMOL in SODIUM CHLORIDE 0.9% 500ML 500 ML IV ONE (09:15)
[2017-10-26] MEDS ORDERED: ENOXAPARIN 40 MG/0.4 ML SYR SQ ONE (13:00)
--- NOTE | 2017-10-26 13:43 | Critical Care Progress Note ---
Critical Care Progress Note Date of Service Oct 26, 2017. Attending Dr. Mims Subjective The patient is improving dramatically. He denies any abdominal pain except with movement. No output from the colostomy. No events overnight. His urine output is adequate. The patient remains 8 L positive fluid balance. Asymptomatic at this point from respiratory standpoint as well. Objective 10/25/2017, the patient physical exam revealed stable vital signs, he does have history of hypertension but his blood pressure was 124/95. No stridor, heart examination S1-S2 regular rate and rhythm, distant breath sounds bilaterally, postop abdomen was silent follow sounds. No edema. Neurologic he is nonfocal and answering questions appropriately. 10/26/2017, his vital signs are stable, no fever, no stridor, lungs are clear, heart examination S1 and S2, abdomen postop bowel sounds are diminished, colostomy in place, trace edema in the periphery. Neurologically is intact. Assessment & Plan #1 perforated viscus status post laparotomy. #2 brief respiratory failure however the patient and the pain extubate successfully today. #3 history of hypertension. #4 history of peptic ulcer disease. Plan: #1 I will continue with antibiotics and switch the patient to ceftriaxone. #2 would discontinue vancomycin as the patient does not have evidence of Staphylococcus aureus. #3 will discontinue fluconazole as the patient does not have evidence of fungal infection or peritonitis. #4 the patient has a drop in his hematocrit and I will repeat the hematocrit at 2 PM. #5 likely of the drop in hematocrit due to dilutional effect from 8 L positive fluid balance. #6 out of bed. #7 continue with GI and DVT prophylaxis. #8 discussed with the staff on rounds and details. #9 oral intake per surgery once indicated. #10 disposition plan for surgery. #11 restart Lovenox for DVT prophylaxis Case discussed with the staff on rounds and details. Critical care time spent with the patient was 35 minutes. Data Medications: Current Inpatient Medications Medications (Trade) Dose Ordered Sig/King Route Start Time Stop Time Status Last Admin Dose Admin Acetaminophen 100 ml @ 400 mls/hr Q8H PRN IV 10/24/17 20:15 11/23/17 20:14 Acetaminophen/ Hydrocodone Bitart ([place] 5/325 Tab) 1 tab Q4H PRN PO 10/24/17 20:15 11/07/17 20:14 Hydromorphone HCl (Dilaudid Inj) 0.5 mg Q3H PRN IV 10/24/17 20:15 11/07/17 20:14 10/25/17 10:06 0.5 MG Acetaminophen/ Hydrocodone Bitart ([place] 5/325 Tab) 2 tab Q4H PRN PO 10/24/17 20:15 11/07/17 20:14 Hydromorphone HCl (Dilaudid Inj) 1 mg Q3H PRN IV 10/24/17 20:15 11/07/17 20:14 10/26/17 11:29 1 MG Ondansetron HCl (Zofran Inj) 4 mg Q6H PRN IV 10/24/17 20:15 11/23/17 20:14 Miscellaneous Information ([facility] Protocol For Hyperglycemia) 1 ea PRN PRN N/A 10/24/17 21:00 10/26/17 20:59 Parenteral Electrolyte Solution 1,000 ml @ 125 mls/hr Q8H IV 10/24/17 21:15 11/23/17 21:14 10/26/17 04:30 125 MLS/HR Enoxaparin Sodium (Lovenox Inj) 40 mg DAILY SQ 10/27/17 09:00 11/26/17 08:59 Ceftriaxone Sodium 2000 mg/ Dextrose 70 ml @ 100 mls/hr Q24H IV 10/26/17 13:00 11/09/17 12:59 Vital Signs: Date Time Temp Pulse Resp B/P (MAP) Pulse Ox O2 Delivery O2 Flow Rate FiO2 10/26/17 12:00 95 Room Air 10/26/17 12:00 99 18 122/69 (86) 97 Room Air 10/26/17 10:00 105 18 129/70 (89) 96 Room Air 10/26/17 08:00 36.7 111 20 125/85 (98) 96 Room Air 10/26/17 08:00 96 Room Air 10/26/17 06:00 103 15 120/73 (89) 96 Room Air 10/26/17 04:00 36.7 103 14 113/65 (81) 95 Room Air 10/26/17 04:00 Room Air 10/26/17 02:00 104 16 124/73 (90) 95 Room Air 10/26/17 00:01 36.5 106 16 122/75 (91) 95 Room Air 10/25/17 23:59 Room Air 10/25/17 22:00 107 17 131/70 (90) 97 Room Air 10/25/17 20:00 36.6 108 16 115/67 (83) 95 Room Air 10/25/17 20:00 Room Air 10/25/17 18:01 113 20 120/74 (89) 97 Room Air 10/25/17 16:00 36.5 111 20 126/77 (93) 97 Room Air 10/25/17 16:00 Room Air 10/25/17 14:00 116 16 114/76 (89) 96 Room Air Laboratory Results: Last 24 Hours Test 10/25/17 16:09 10/25/17 21:00 10/25/17 22:47 10/26/17 05:37 Bedside Glucose 157 mg/dl 150 mg/dl Random Vancomycin Level 15.7 mcg/ml White Blood Count 11.37 K/uL Red Blood Count 2.78 M/uL Hemoglobin 8.7 g/dL Hematocrit 24.9 % Mean Corpuscular Volume 89.6 fL Mean Corpuscular Hemoglobin 31.3 pg Mean Corpuscular Hemoglobin Concent 34.9 g/dl Platelet Count 267 K/uL Mean Platelet Volume 8.2 fL Neutrophils (%) (Auto) 78.8 % Lymphocytes (%) (Auto) 9.0 % Monocytes (%) (Auto) 10.8 % Eosinophils (%) (Auto) 0.0 % Basophils (%) (Auto) 0.1 % Neutrophils # (Auto) 8.96 K/uL Lymphocytes # (Auto) 1.02 K/uL Monocytes # (Auto) 1.23 K/uL Eosinophils # (Auto) 0.00 K/uL Basophils # (Auto) 0.01 K/uL RDW Standard Deviation 47.8 fL RDW Coefficient of Variation 14.3 % Immature Granulocyte % (Auto) 1.3 % Immature Granulocyte # (Auto) 0.15 K/uL Red Blood Cell Morphology Unremarkable Prothrombin Time 16.8 SECONDS Prothromb Time International Ratio 1.6 Activated Partial Thromboplast Time 40.4 SECONDS Partial Thromboplastin Ratio 1.6 Sodium Level 131 mmol/L Potassium Level 3.4 mmol/L Chloride Level 99 mmol/L Carbon Dioxide Level 22 mmol/L Anion Gap 10.0 mmol/L Blood Urea Nitrogen 23 mg/dl Creatinine 1.21 mg/dl Est Creatinine Clear Calc Drug Dose 64.6 ml/min Estimated GFR () 70.9 Estimated GFR (Non- 61.1 BUN/Creatinine Ratio 18.7 Random Glucose 121 mg/dl Lactic Acid Level 1.0 mmol/L Calcium Level 6.8 mg/dl Phosphorus Level 2.0 mg/dl Magnesium Level 1.9 mg/dl Total Bilirubin 0.8 mg/dl Direct Bilirubin 0.6 mg/dl Aspartate Amino Transf (AST/SGOT) 22 U/L Alanine Aminotransferase (ALT/SGPT) 15 U/L Alkaline Phosphatase 71 U/L Total Protein 4.7 gm/dl Albumin 1.1 gm/dl Test 10/26/17 06:35 Bedside Glucose 131 mg/dl
[2017-10-26] MEDS: CEFTRIAXONE SOD INJ 2,000 MG in DEXTROSE 5% 50ML 50 ML IV SCH (14:05)
[2017-10-26 14:14] LABS: HEMATOCRIT 24.8 % (42-52); HEMOGLOBIN 8.5 g/dL (14.0-18.0)
[2017-10-27] VITALS (9 sets, daily range): BP systolic 116–152; BP diastolic 74–84; PULSE 88–104; TEMP 36.7–37.1; O2SAT 95–99
[2017-10-27] MEDS: HYDROmorphone INJ 1 MG/ML SYR IV PRN ×3 (02:09→11:23)
[2017-10-27] MEDS: NORMOSOL R 1,000 ML IV SCH (04:40)
[2017-10-27] MEDS: HYDROmorphone INJ 0.5 MG/0.5 ML SYR IV PRN (05:12)
[2017-10-27 05:57] LABS: BASO % 0.1 %; BASO ABS # 0.01 K/uL (0-0.2); EOS % 0.3 %; EOS ABS # 0.03 K/uL (0-0.5); HEMATOCRIT 22.8 % (42-52); HEMOGLOBIN 7.8 g/dL (14.0-18.0); IG# 0.46 K/uL (0.00-0.02); LYMPH % 7.7 %; LYMPH ABS # 0.72 K/uL (1.2-3.4); MEAN CELL VOLUME 90.8 fL (80-100); MEAN CORPUSCULAR HEMOGLOBIN 31.1 pg (25-34); MEAN CORPUSCULAR HGB CONC 34.2 g/dl (32-36); MEAN PLATELET VOLUME 8.3 fL (7.4-10.4); MONO % 8.1 %; MONO ABS # 0.76 K/uL (0.11-0.59); NEUT % 78.9 %; NEUT ABS # 7.39 K/uL (1.4-6.5); NUCLEATED RED BLOOD CELL ABS 0.02 K/uL (0-0); PLATELET COUNT 239 K/uL (130-400); RED CELL DISTRIBUTION WIDTH CV 14.7 % (11.5-14.5); RED CELL DISTRIBUTION WIDTH SD 49.2 fL (36.4-46.3); WHITE BLOOD COUNT 9.37 K/uL (4.8-10.8)
[2017-10-27 06:12] LABS: INR 1.8 (0.9-1.1); PTT PATIENT 41.9 SECONDS (21.0-31.0)
[2017-10-27 06:47] LABS: CALCIUM 7.3 mg/dl (8.5-10.1); CREATININE 0.82 mg/dl (0.60-1.40); POTASSIUM 3.3 mmol/L (3.5-5.1)
[2017-10-27] MEDS: ENOXAPARIN 40 MG/0.4 ML SYR SQ SCH (07:39)
[2017-10-27] MEDS: POTASSIUM CHLORIDE 20 MEQ TABCR PO SCH ×2 (10:18→20:42)
--- NOTE | 2017-10-27 11:15 | Surgery Progress Note ---
Surgery Progress Note Date of Service Oct 27, 2017. Subjective Post OP Day: 3 + feeling well pt continues to improve each day. no new complaints. Objective Vital Signs: Date Time Temp Pulse Resp B/P (MAP) Pulse Ox O2 Delivery O2 Flow Rate FiO2 10/27/17 10:40 104 95 10/27/17 10:30 37.0 98 20 152/79 (103) 98 Room Air 10/27/17 08:00 97 Room Air 10/27/17 04:01 36.7 88 24 140/83 (102) 99 Nasal Cannula 1.0 10/27/17 04:00 Room Air 10/27/17 02:01 101 17 136/84 (101) 99 Nasal Cannula 1.0 10/27/17 00:01 36.7 93 12 122/76 (91) 97 Nasal Cannula 1.0 10/27/17 00:00 Room Air 10/26/17 22:01 101 18 145/82 (103) 99 Nasal Cannula 1.0 10/26/17 20:15 37.1 102 17 134/78 (96) 94 10/26/17 20:00 Room Air 10/26/17 18:00 111 20 134/74 (94) 98 Room Air 10/26/17 16:00 102 18 135/75 (95) 98 Nasal Cannula 10/26/17 16:00 100 Room Air 10/26/17 14:00 97 18 120/67 (84) 97 Room Air 10/26/17 12:00 95 Room Air 10/26/17 12:00 99 18 122/69 (86) 97 Room Air Physical Exam: KARMA drainage (minimal /serous) General Appearance: no apparent distress Abdomen: soft, + pertinent finding (stoma's both viable. no stool output yet. ) Incision(s): clean, dry, intact, no erythema Laboratory Results: Results Past 24 Hours Test 10/26/17 14:06 10/27/17 05:43 Range/Units Hemoglobin 8.5 7.8 14.0-18.0 g/dL Hematocrit 24.8 22.8 42-52 % White Blood Count 9.37 4.8-10.8 K/uL Red Blood Count 2.51 4.7-6.1 M/uL Mean Corpuscular Volume 90.8 80-100 fL Mean Corpuscular Hemoglobin 31.1 25-34 pg Mean Corpuscular Hemoglobin Concent 34.2 32-36 g/dl Platelet Count 239 130-400 K/uL Mean Platelet Volume 8.3 7.4-10.4 fL Neutrophils (%) (Auto) 78.9 % Lymphocytes (%) (Auto) 7.7 % Monocytes (%) (Auto) 8.1 % Eosinophils (%) (Auto) 0.3 % Basophils (%) (Auto) 0.1 % Neutrophils # (Auto) 7.39 1.4-6.5 K/uL Lymphocytes # (Auto) 0.72 1.2-3.4 K/uL Monocytes # (Auto) 0.76 0.11-0.59 K/uL Eosinophils # (Auto) 0.03 0-0.5 K/uL Basophils # (Auto) 0.01 0-0.2 K/uL RDW Standard Deviation 49.2 36.4-46.3 fL RDW Coefficient of Variation 14.7 11.5-14.5 % Immature Granulocyte % (Auto) 4.9 % Immature Granulocyte # (Auto) 0.46 0.00-0.02 K/uL Nucleated RBC Absolute Count (auto) 0.02 0-0 K/uL Nucleated Red Blood Cells % 0.2 % Red Blood Cell Morphology Unremarkable Prothrombin Time 18.2 9.0-12.0 SECONDS Prothromb Time International Ratio 1.8 0.9-1.1 Activated Partial Thromboplast Time 41.9 21.0-31.0 SECONDS Partial Thromboplastin Ratio 1.6 Sodium Level 132 136-145 mmol/L Potassium Level 3.3 3.5-5.1 mmol/L Chloride Level 99 98-107 mmol/L Carbon Dioxide Level 22 21-32 mmol/L Anion Gap 11.0 3-11 mmol/L Blood Urea Nitrogen 14 7-18 mg/dl Creatinine 0.82 0.60-1.40 mg/dl Est Creatinine Clear Calc Drug Dose 96.6 ml/min Estimated GFR () 105.3 Estimated GFR (Non- 90.9 BUN/Creatinine Ratio 17.5 10-20 Random Glucose 84 70-99 mg/dl Calcium Level 7.3 8.5-10.1 mg/dl Assessment & Plan 10/27/17 doing well pt wishes to keep arnold one more day. will plan to remove tomorrow awaiting return of bowel fx PT/OT 10/25/17 doing better than predicted at this point ok to remove ngt and try sips continue antibiotics supportive care appreciate ICU help 10/25/17 doing better than predicted at this point ok to remove ngt and try sips continue antibiotics supportive care appreciate ICU help
[2017-10-27] MEDS: CEFTRIAXONE SOD INJ 2,000 MG in DEXTROSE 5% 50ML 50 ML IV SCH (13:55)
[2017-10-27] MEDS ORDERED: NURSING VERBAL MED ORDER ONE (14:00)
--- NOTE | 2017-10-27 14:44 | Medical Consult ---
Consultation Date of Consultation: Oct 27, 2017. Attending Physician: Dashawn Shea D.O. Reason for Consultation: post-op medical mgmt History of Present Illness This is a 67yo M with a PMH of HTN, migraines and GERD who presented to the ED with abdominal pain, distention and nausea on 10/24 and was found to have perforated diverticulitis with abscesses. Was taken to the OR by Dr. Shea for an exploratory laparotomy and had a partial transverse colectomy, partial small bowel resection, drainage of multiple abscesses and creation of a colostomy and mucous fistula. Patient was left intubated and transferred to the ICU for monitoring. Was successfully extubated and is feeling much better. Currently patient denies any katina abdominal pain but states that he is diffusely tender. Denies fever, chills, lightheadedness, CP, SOB, nausea, vomiting, LE swelling. Colostomy is in place without output. Patient transitioned to clear liquid diet this AM and is tolerating without problem. GI history includes dilation of the duodenum (2/2 stricture) in [address] Garcia. Denies any history of diverticulitis. Past Medical/Surgical History Medical Problems: (1) Cataract Status: Chronic (2) Chronic neck pain Status: Chronic (3) Diverticulitis of colon with perforation Status: Resolved (4) HTN (hypertension) Status: Chronic (5) Migraines Status: Chronic (6) PUD (peptic ulcer disease) Status: Chronic Surgical Problems: (1) Dilation of duodenum Permanent Comment: 2011 Status: Resolved (2) S/P exploratory laparotomy Permanent Comment: 10/24/17: partial transverse colectomy, partial small bowel resection, drainage of multiple abscesses and creation of a colostomy and mucous fistula Status: Resolved Family History Patient reports no known family medical history. Social History Smoking Status: Never Smoker Alcohol Use: none Drug Use: none Marital Status: other (Male Partner: unknown marital status) Housing Status: lives with significant other Occupation Status: retired Allergies Coded Allergies: Shrimp (Verified Adverse Reaction, Unknown, GI SYMPTOMS, 10/24/17) Home Medications Home Meds and Scripts Medications Dose Route/Sig Max Daily Dose Days Date Category Dose Instructions Fioricet (Bsonjfaytm-Ubzhsrnuhoemk-Gwzvy) 1 Cap Cap 1-2 Tabs PO Q4 PRN 10/24/17 Reported MAXIMUM 6 TABLETS IN 24 HOURS Zestoretic 20-12.5 mg (Lisinopril & Hydrochlorothiazi) 1 Tab Tab 1 Tab PO QPM 10/24/17 Reported Current Inpatient Medications Current Inpatient Medications Medications (Trade) Dose Ordered Sig/King Route Start Time Stop Time Status Last Admin Dose Admin Acetaminophen 100 ml @ 400 mls/hr Q8H PRN IV 10/24/17 20:15 11/23/17 20:14 Acetaminophen/ Hydrocodone Bitart ([place] 5/325 Tab) 1 tab Q4H PRN PO 10/24/17 20:15 11/07/17 20:14 Hydromorphone HCl (Dilaudid Inj) 0.5 mg Q3H PRN IV 10/24/17 20:15 11/07/17 20:14 10/27/17 05:12 0.5 MG Acetaminophen/ Hydrocodone Bitart ([place] 5/325 Tab) 2 tab Q4H PRN PO 10/24/17 20:15 11/07/17 20:14 Hydromorphone HCl (Dilaudid Inj) 1 mg Q3H PRN IV 10/24/17 20:15 11/07/17 20:14 10/27/17 11:23 1 MG Ondansetron HCl (Zofran Inj) 4 mg Q6H PRN IV 10/24/17 20:15 11/23/17 20:14 10/26/17 15:31 4 MG Enoxaparin Sodium (Lovenox Inj) 40 mg DAILY SQ 10/27/17 09:00 11/26/17 08:59 10/27/17 07:39 40 MG Ceftriaxone Sodium 2000 mg/ Dextrose 70 ml @ 100 mls/hr Q24H IV 10/26/17 13:00 11/09/17 12:59 10/27/17 13:55 100 MLS/HR Potassium Chloride (Klor-Con Tab) 20 meq BID PO 10/27/17 09:00 11/26/17 08:59 10/27/17 10:18 20 MEQ Review of Systems Ten systems reviewed and negative except as noted in the HPI. Physical Exam Date Time Temp Pulse Resp B/P (MAP) Pulse Ox O2 Delivery O2 Flow Rate FiO2 10/27/17 10:40 104 95 10/27/17 10:30 37.0 98 20 152/79 (103) 98 Room Air 10/27/17 08:00 97 Room Air 10/27/17 04:01 36.7 88 24 140/83 (102) 99 Nasal Cannula 1.0 10/27/17 04:00 Room Air 10/27/17 02:01 101 17 136/84 (101) 99 Nasal Cannula 1.0 10/27/17 00:01 36.7 93 12 122/76 (91) 97 Nasal Cannula 1.0 10/27/17 00:00 Room Air 10/26/17 22:01 101 18 145/82 (103) 99 Nasal Cannula 1.0 10/26/17 20:15 37.1 102 17 134/78 (96) 94 10/26/17 20:00 Room Air 10/26/17 18:00 111 20 134/74 (94) 98 Room Air 10/26/17 16:00 102 18 135/75 (95) 98 Nasal Cannula 10/26/17 16:00 100 Room Air General Appearance: WD/WN, no apparent distress Head: normocephalic, atraumatic Eyes: normal inspection, PERRL, sclerae normal ENT: normal ENT inspection, hearing grossly normal, pharynx normal (moist mucous membranes ) Neck: supple, thyroid normal, trachea midline Respiratory/Chest: chest non-tender, lungs clear, normal breath sounds, no respiratory distress, no accessory muscle use Cardiovascular: regular rate, rhythm, normal peripheral pulses, + systolic murmur Abdomen/GI: + tenderness (TTP around surgical site. ), + pertinent finding ( Dressings intact. Stoma visualized. No surrounding redness/irritation. No output noted. KARMA drain with some sanguineous output. ) Extremities/Musculoskelatal: normal inspection, no calf tenderness, no pedal edema Neurologic/Psych: alert, normal mood/affect, oriented x 3 Skin: normal color Laboratory Results Last 24 Hours Test 10/27/17 05:43 White Blood Count 9.37 K/uL Red Blood Count 2.51 M/uL Hemoglobin 7.8 g/dL Hematocrit 22.8 % Mean Corpuscular Volume 90.8 fL Mean Corpuscular Hemoglobin 31.1 pg Mean Corpuscular Hemoglobin Concent 34.2 g/dl Platelet Count 239 K/uL Mean Platelet Volume 8.3 fL Neutrophils (%) (Auto) 78.9 % Lymphocytes (%) (Auto) 7.7 % Monocytes (%) (Auto) 8.1 % Eosinophils (%) (Auto) 0.3 % Basophils (%) (Auto) 0.1 % Neutrophils # (Auto) 7.39 K/uL Lymphocytes # (Auto) 0.72 K/uL Monocytes # (Auto) 0.76 K/uL Eosinophils # (Auto) 0.03 K/uL Basophils # (Auto) 0.01 K/uL RDW Standard Deviation 49.2 fL RDW Coefficient of Variation 14.7 % Immature Granulocyte % (Auto) 4.9 % Immature Granulocyte # (Auto) 0.46 K/uL Nucleated RBC Absolute Count (auto) 0.02 K/uL Nucleated Red Blood Cells % 0.2 % Red Blood Cell Morphology Unremarkable Prothrombin Time 18.2 SECONDS Prothromb Time International Ratio 1.8 Activated Partial Thromboplast Time 41.9 SECONDS Partial Thromboplastin Ratio 1.6 Sodium Level 132 mmol/L Potassium Level 3.3 mmol/L Chloride Level 99 mmol/L Carbon Dioxide Level 22 mmol/L Anion Gap 11.0 mmol/L Blood Urea Nitrogen 14 mg/dl Creatinine 0.82 mg/dl Est Creatinine Clear Calc Drug Dose 96.6 ml/min Estimated GFR () 105.3 Estimated GFR (Non- 90.9 BUN/Creatinine Ratio 17.5 Random Glucose 84 mg/dl Calcium Level 7.3 mg/dl Assessment & Plan This is a 67yo M with a PMH of HTN, migraines and GERD who presented to the ED with abdominal pain, distention and nausea on 10/24 and was found to have perforated diverticulitis with abscesses and is POD #2 s/p emergency ex lap. Perforated diverticulitis POD #2 s/p ex lap: -Dr Shea performed partial transverse colectomy, partial small bowel resection, drainage of multiple abscesses and creation of a colostomy and mucous fistula -Pt is doing well post-operatively. Transferred from ICU to [facility] today -Minimal abd discomfort, vitals stable, lab work improving -Recently transitioned to clear liquid diet. Tolerating well -Antibiotic coverage de-escalated to ceftriaxone, per scalper operator -Electrolytes replaced -H/H decreased overnight from 8.5/24.8 to 7.8/22.8. Likely a dilutional effect. Repeat H/H pending. -Per general surgery for pain control, wound care, fluid management, anticoagulation and activities -Monitor H&H, continue incentive spirometry, PT/OT HTN: -Normotensive -Continue home lisinopril/hctz -Monitor GERD: -Improved after duodenal dilation in 2011 -No home medication H/o migraines: -Stable -Fioricet PRN DVT Ppx: Lovenox SQ PCP: Maria Ines Dispo: Per general surgery Patient seen in collaboration with Dr. Harkins. Please see addendum. I have seen and examined the patient and agree with the assessment and plan. For now he has a dilutional anemia and appears to be healing well post- operatively. As he is 8L+, will stop the Normosol and hold any further fluids unless indicated. Repeat H/H in am. Thank you for allowing us to participate in Mr. Mott's care. Torin, DO
[2017-10-27] MEDS: HYDROCODONE/ACETAMOPHEN 5/325MG TAB PO PRN ×3 (14:50→23:29)
[2017-10-27] MEDS ORDERED: BUTALBITAL/ACETAMIN/CAFFEINE TAB PO PRN (15:15)
[2017-10-27] MEDS: LISINOPRIL/HCTZ 20/12.5MG TAB PO SCH ×2 (20:41→20:57)
[2017-10-28] MEDS: HYDROCODONE/ACETAMOPHEN 5/325MG TAB PO PRN ×4 (03:21→21:22)
--- NOTE | 2017-10-28 07:12 | Surgery Progress Note ---
Surgery Progress Note Date of Service Oct 28, 2017. Subjective Post OP Day: 4 + feeling well, + pain controlled, + diet (Tolerating clears), No complaints, No nausea, No vomiting Expressed his desire to ambulate more and to go home. Reports slight improvement from yesterday. Ostomy and Mucous fistula pink, patent. - still waiting on output. ostomy is producing some trace brown colored fluid. Objective Vital Signs: Date Time Temp Pulse Resp B/P (MAP) Pulse Ox O2 Delivery O2 Flow Rate FiO2 10/27/17 23:33 Room Air 10/27/17 23:09 36.9 96 18 149/78 (101) 97 Room Air 10/27/17 20:38 89 132/79 (96) 10/27/17 15:31 37.1 101 17 129/74 (92) 96 Room Air 10/27/17 15:30 Room Air 10/27/17 10:40 104 95 10/27/17 10:30 37.0 98 20 152/79 (103) 98 Room Air 10/27/17 08:00 97 Room Air Physical Exam: KARMA drainage (Minimal output, serosanguinous.) General Appearance: WD/WN, no apparent distress Head: normocephalic, atraumatic Neck: trachea midline Respiratory/Chest: no respiratory distress, no accessory muscle use Abdomen: soft, no organomegaly, no pulsatile mass, + distended (Mild), + tenderness (Incisional) Incision(s): clean, dry, intact, no erythema, no drainage Laboratory Results: Results Past 24 Hours Test 10/28/17 06:21 Range/Units Assessment & Plan 10/28/17 Doing well, no new complaints. Tolerating Clears, No N/V. Ostomy and mucous fistula pink, patent - no output yet. Awaiting return of bowel function. D/C arnold. PT/OT. - patient expressed interest to increase activity. Findings discussed with Dr. Shea. Please contact with questions or concerns.
[2017-10-28 07:22] LABS: CALCIUM 7.6 mg/dl (8.5-10.1); CREATININE 0.79 mg/dl (0.60-1.40); POTASSIUM 3.2 mmol/L (3.5-5.1)
[2017-10-28 08:02] VITALS: BP 122/74; PULSE 84; TEMP 36.8; O2SAT 96
[2017-10-28] MEDS: POTASSIUM CHLORIDE 20 MEQ TABCR PO SCH ×2 (08:20→21:00)
[2017-10-28] MEDS: ENOXAPARIN 40 MG/0.4 ML SYR SQ SCH (08:21)
[2017-10-28 09:55] LABS: HEMOGLOBIN 8.3 g/dL (14.0-18.0); MEAN CELL VOLUME 90.6 fL (80-100); MEAN CORPUSCULAR HEMOGLOBIN 31.3 pg (25-34); MEAN PLATELET VOLUME 8.3 fL (7.4-10.4); NUCLEATED RED BLOOD CELL ABS 0.02 K/uL (0-0); PLATELET COUNT 253 K/uL (130-400); RED CELL DISTRIBUTION WIDTH CV 14.6 % (11.5-14.5); RED CELL DISTRIBUTION WIDTH SD 48.3 fL (36.4-46.3); WHITE BLOOD COUNT 6.26 K/uL (4.8-10.8)
[2017-10-28 10:05] LABS: MEAN CORPUSCULAR HGB CONC 34.6 g/dl (32-36)
[2017-10-28] MEDS: POTASSIUM CHLORIDE 20 MEQ/15 ML UDC PO SCH ×2 (10:14→16:50)
[2017-10-28] MEDS: CEFTRIAXONE SOD INJ 2,000 MG in DEXTROSE 5% 50ML 50 ML IV SCH (12:59)
[2017-10-28 16:03] VITALS: BP 115/73; PULSE 91; TEMP 36.8; O2SAT 96
[2017-10-28] MEDS: METRONIDAZOLE 500MG / NSS IV SCH ×2 (16:07→23:45)
--- NOTE | 2017-10-28 21:13 | Progress Note ---
Medicine Progress Note Date & Time of Visit: Oct 28, 2017 at 1700. Subjective pt doing well still tolerating clears min abdominal discomfort not very ambulatory and encouraged to ambulate with assist as tolerated. Objective Last 8 Hrs Date Time Temp Pulse Resp B/P (MAP) Pulse Ox O2 Delivery O2 Flow Rate FiO2 10/28/17 16:03 36.8 91 17 115/73 (87) 96 Room Air Physical Exam: GEN: WNWD, in no acute distress, alert and appropriate HEENT: NC/AT, normal sclerae, MMM CARDIO: reg rate, S1/2 heard without m/g/r LUNGS: CTA bilaterally, no crackles, rales or wheezes, good diaphragmatic excursion ABD: soft, non-tender, non-distended, no rebound or guarding EXTREMITY: RP and DP palpable 2+ bilat, no LE swelling or edema, extremities are warm and well-perfused NEURO: CN 2-12 intact, sensation intact throughout, coordination intact (reflexes) BR 2+ bilat, knee 2+ bilat, achilles 2+ bilat MUSC: 5/5 strength throughout, no focal deficits SKIN: warm and dry Laboratory Results: 10/28/17 09:34 10/28/17 06:21 Test 10/24/17 14:33 10/24/17 14:46 10/24/17 21:23 10/25/17 00:05 Total Creatine Kinase 35 U/L (39-308) Creatine Kinase MB 2.1 ng/ml (0.5-3.6) Creatine Kinase MB Ratio 6.0 (0-3.0) Troponin I 0.027 ng/ml (0-0.045) Lipase 207 U/L (73-393) Bedside Lactic Acid Venous 1.58 mmol/L (0.90-1.70) Ionized Calcium 1.03 mmol/l (1.12-1.32) Globulin 3.8 gm/dl (2.5-4.0) Albumin/Globulin Ratio 0.3 (0.9-2) Urine Color DK YELLOW Urine Appearance CLOUDY (CLEAR) Urine pH 5.0 (4.5-7.5) Urine Specific [place]kin 1.026 (1.000-1.030) Urine Protein 1+ (NEG) Urine Glucose (UA) TRACE (NEG) Urine Ketones 1+ (NEG) Urine Occult Blood TRACE (NEG) Urine Nitrite NEG (NEG) Urine Bilirubin NEG (NEG) Urine Urobilinogen NEG (NEG) Urine Leukocyte Esterase NEG (NEG) Urine WBC (Auto) 10-30 /hpf (0-5) Urine RBC (Auto) 0-4 /hpf (0-4) Urine Hyaline Casts (Auto) 5-10 /lpf (0-5) Urine Epithelial Cells (Auto) >30 /lpf (0-5) Urine Bacteria (Auto) NEG (NEG) Urine Renal Epithelial Cells /lpf (0-5) Urine Crystals AMORPHOUS SEDIMENT (NONE Urine Pathogenic Casts 0-3 GRANULAR CASTS /lpf (0) Urine Yeast (Auto) BUD W/ HYPHAE (NONE PRSENT) Urine Sperm (Auto) PRESENT (NOT PRESENT) Test 10/25/17 05:57 10/25/17 06:07 10/25/17 21:00 10/26/17 05:37 Blood Gas Pressure Support 5 Blood Gas Specimen Type ARTERIAL Blood Gas Sample Site L Radial Blood Gas Patient Temperature 36.5 Bedside Blood Gas pH (LAB) 7.47 (7.35-7.45) Bedside Blood Gas pCO2 (LAB) 22 mmHg (35-46) Bedside Blood Gas pO2 (LAB) 147 mmHg (80-95) Bedside Blood Gas HCO3 (LAB) 17 meq/L (19-24) Bedside Blood Gas Total CO2 17 mEq/l (24-31) Bedside Blood Gas Base Excess (LAB) -7.0 meq/L (-9-1.8) Bedside Blood Gas O2 Saturation 99.0 % (90-95) Oxygen Saturation (Pulse Oximetry) 99 % Bayron Test ACCEPTABLE Oxygen Delivery Device Ventilator Bedside FiO2 35 % Blood Gas PEEP 5 Random Vancomycin Level 15.7 mcg/ml Lactic Acid Level 1.0 mmol/L (0.4-2.0) Phosphorus Level 2.0 mg/dl (2.5-4.9) Magnesium Level 1.9 mg/dl (1.8-2.4) Total Bilirubin 0.8 mg/dl (0.2-1) Direct Bilirubin 0.6 mg/dl (0-0.2) Aspartate Amino Transf (AST/SGOT) 22 U/L (15-37) Alanine Aminotransferase (ALT/SGPT) 15 U/L (12-78) Alkaline Phosphatase 71 U/L (45-117) Total Protein 4.7 gm/dl (6.4-8.2) Albumin 1.1 gm/dl (3.4-5.0) Test 10/26/17 06:35 10/27/17 05:43 10/28/17 06:21 10/28/17 09:34 Bedside Glucose 131 mg/dl (70-99) Immature Granulocyte % (Auto) 4.9 % White Blood Count 9.37 K/uL (4.8-10.8) Red Blood Count 2.51 M/uL (4.7-6.1) 2.65 M/uL (4.7-6.1) Hemoglobin 7.8 g/dL (14.0-18.0) Hematocrit 22.8 % (42-52) Mean Corpuscular Volume 90.8 fL (80-100) 90.6 fL (80-100) Mean Corpuscular Hemoglobin 31.1 pg (25-34) 31.3 pg (25-34) Mean Corpuscular Hemoglobin Concent 34.2 g/dl (32-36) 34.6 g/dl (32-36) Platelet Count 239 K/uL (130-400) Mean Platelet Volume 8.3 fL (7.4-10.4) 8.3 fL (7.4-10.4) Neutrophils (%) (Auto) 78.9 % Lymphocytes (%) (Auto) 7.7 % Monocytes (%) (Auto) 8.1 % Eosinophils (%) (Auto) 0.3 % Basophils (%) (Auto) 0.1 % Neutrophils # (Auto) 7.39 K/uL (1.4-6.5) Lymphocytes # (Auto) 0.72 K/uL (1.2-3.4) Monocytes # (Auto) 0.76 K/uL (0.11-0.59) Eosinophils # (Auto) 0.03 K/uL (0-0.5) Basophils # (Auto) 0.01 K/uL (0-0.2) Immature Granulocyte # (Auto) 0.46 K/uL (0.00-0.02) Red Blood Cell Morphology Unremarkable Prothrombin Time 18.2 SECONDS (9.0-12.0) Prothromb Time International Ratio 1.8 (0.9-1.1) Activated Partial Thromboplast Time 41.9 SECONDS (21.0-31.0) Partial Thromboplastin Ratio 1.6 Anion Gap 8.0 mmol/L (3-11) Est Creatinine Clear Calc Drug Dose 100.2 ml/min Estimated GFR () 106.9 Estimated GFR (Non- 92.3 BUN/Creatinine Ratio 11.3 (10-20) Calcium Level 7.6 mg/dl (8.5-10.1) RDW Standard Deviation 48.3 fL (36.4-46.3) RDW Coefficient of Variation 14.6 % (11.5-14.5) Nucleated RBC Absolute Count (auto) 0.02 K/uL (0-0) Nucleated Red Blood Cells % 0.3 % Date/Time Source Procedure Growth Status 10/24/17 20:20 Nasal MRSA DNA Surveillance Screen - Final Specimen Negative for MRSA by DNA Probe Complete 10/24/17 17:30 Abscess Abdomen Gram Stain - Final Resulted 10/24/17 17:30 Bacterial Culture - Preliminary Escherichia Coli Alpha Strep. Not Enterococcus Bacteroides Uniformis Bacteroides Thetaiotaomicron Resulted Last 24 Hours Test 10/28/17 06:21 10/28/17 09:34 Sodium Level 135 mmol/L Potassium Level 3.2 mmol/L Chloride Level 101 mmol/L Carbon Dioxide Level 26 mmol/L Anion Gap 8.0 mmol/L Blood Urea Nitrogen 9 mg/dl Creatinine 0.79 mg/dl Est Creatinine Clear Calc Drug Dose 100.2 ml/min Estimated GFR () 106.9 Estimated GFR (Non- 92.3 BUN/Creatinine Ratio 11.3 Random Glucose 107 mg/dl Calcium Level 7.6 mg/dl White Blood Count 6.26 K/uL Red Blood Count 2.65 M/uL Hemoglobin 8.3 g/dL Hematocrit 24.0 % Mean Corpuscular Volume 90.6 fL Mean Corpuscular Hemoglobin 31.3 pg Mean Corpuscular Hemoglobin Concent 34.6 g/dl RDW Standard Deviation 48.3 fL RDW Coefficient of Variation 14.6 % Platelet Count 253 K/uL Mean Platelet Volume 8.3 fL Nucleated RBC Absolute Count (auto) 0.02 K/uL Nucleated Red Blood Cells % 0.3 % Assessment & Plan This is a 67 yo M with a PMH of HTN, migraines and GERD who presented to the ED with abdominal pain, distention and nausea on 10/24 and was found to have perforated diverticulitis with abscesses and is s/p emergency ex lap. Perforated diverticulitis POD #3 s/p ex lap: -Dr Shea performed partial transverse colectomy, partial small bowel resection, drainage of multiple abscesses and creation of a colostomy and mucous fistula -Pt is doing well post-operatively. Transferred from ICU to [facility] 10/27 -Minimal abd discomfort and tolerating clear liquid diet. -Antibiotic coverage de-escalated to ceftriaxone, per senior ui web developer . However, Bacteroides was growing in culture, too and need better anaerobe coverage so adding flagyl and consulted ID to help with ideal antibiotic selection and for how long. -Per general surgery for pain control, wound care, fluid management, anticoagulation and activities -Monitor H&H, continue incentive spirometry, PT/OT Systolic murmur heard on exam: not in record as having this prior. Will order a resting TTE while inpatient to evaluate this further as there is no echo on file. Dilutional anemia in post-op setting-H/H improved this morning. No transfusion needed at this time. HTN: -Normotensive -Continue home lisinopril/hctz -Monitor Hypokalemia: replaced, recheck in am. H/o migraines: -Stable -Fioricet PRN DVT Ppx: Lovenox SQ Full Code Dispo: Per general surgery Jeni Harkins DO [facility] Hospitalist Current Inpatient Medications: Current Inpatient Medications Medications (Trade) Dose Ordered Sig/King Route Start Time Stop Time Status Last Admin Dose Admin Acetaminophen 100 ml @ 400 mls/hr Q8H PRN IV 10/24/17 20:15 11/23/17 20:14 Acetaminophen/ Hydrocodone Bitart ([place] 5/325 Tab) 1 tab Q4H PRN PO 10/24/17 20:15 11/07/17 20:14 Hydromorphone HCl (Dilaudid Inj) 0.5 mg Q3H PRN IV 10/24/17 20:15 11/07/17 20:14 10/27/17 05:12 0.5 MG Acetaminophen/ Hydrocodone Bitart ([place] 5/325 Tab) 2 tab Q4H PRN PO 10/24/17 20:15 11/07/17 20:14 10/28/17 16:07 2 TAB Hydromorphone HCl (Dilaudid Inj) 1 mg Q3H PRN IV 10/24/17 20:15 11/07/17 20:14 10/27/17 11:23 1 MG Ondansetron HCl (Zofran Inj) 4 mg Q6H PRN IV 10/24/17 20:15 11/23/17 20:14 10/26/17 15:31 4 MG Enoxaparin Sodium (Lovenox Inj) 40 mg DAILY SQ 10/27/17 09:00 11/26/17 08:59 10/28/17 08:21 40 MG Ceftriaxone Sodium 2000 mg/ Dextrose 70 ml @ 100 mls/hr Q24H IV 10/26/17 13:00 11/09/17 12:59 10/28/17 12:59 100 MLS/HR Potassium Chloride (Klor-Con Tab) 20 meq BID PO 10/27/17 09:00 11/26/17 08:59 10/28/17 08:20 20 MEQ Acetaminophen/ Butalbital/ Caffeine (Fioricet Tab) 1 tab Q4 PRN PO 10/27/17 15:15 11/26/17 15:14 HCTZ/Lisinopril (Prinzide 20-12.5MG Tab) 0.5 tab QPM PO 10/28/17 21:00 11/26/17 20:59 Metronidazole 500 mg/Prmx 100 ml @ 100 mls/hr Q8@00,08,16 IV 10/28/17 16:00 11/07/17 15:59 10/28/17 16:07 100 MLS/HR
[2017-10-28 22:02] VITALS: BP 132/82; PULSE 81
[2017-10-28] MEDS: LISINOPRIL/HCTZ 20/12.5MG TAB PO SCH (22:05)
[2017-10-29] VITALS: BP 128/79; PULSE 81; TEMP 36.5; O2SAT 97
[2017-10-29] MEDS: HYDROCODONE/ACETAMOPHEN 5/325MG TAB PO PRN ×5 (01:59→21:49)
[2017-10-29 07:25] VITALS: BP 149/79; PULSE 85; TEMP 36.3; O2SAT 98
[2017-10-29 07:31] LABS: HEMATOCRIT 24.1 % (42-52); HEMOGLOBIN 8.2 g/dL (14.0-18.0); MEAN CELL VOLUME 92.7 fL (80-100); MEAN CORPUSCULAR HEMOGLOBIN 31.5 pg (25-34); MEAN PLATELET VOLUME 8.2 fL (7.4-10.4); PLATELET COUNT 271 K/uL (130-400); RED CELL DISTRIBUTION WIDTH CV 14.8 % (11.5-14.5); RED CELL DISTRIBUTION WIDTH SD 49.8 fL (36.4-46.3); WHITE BLOOD COUNT 6.01 K/uL (4.8-10.8)
--- NOTE | 2017-10-29 08:08 | Surgery Progress Note ---
Surgery Progress Note Date of Service Oct 29, 2017. Subjective no new complaints. pain controlled. Objective Vital Signs: Date Time Temp Pulse Resp B/P (MAP) Pulse Ox O2 Delivery O2 Flow Rate FiO2 10/29/17 07:25 36.3 85 18 149/79 (102) 98 Room Air 10/29/17 00:00 36.5 81 18 128/79 (95) 97 Room Air 10/28/17 22:02 81 132/82 (99) 10/28/17 19:55 Room Air 10/28/17 16:03 36.8 91 17 115/73 (87) 96 Room Air 10/28/17 16:00 Room Air General Appearance: no apparent distress Respiratory/Chest: no respiratory distress, no accessory muscle use Abdomen: non distended, soft Incision(s): clean, dry, intact, findings (stomas viable. no function yet) Laboratory Results: Results Past 24 Hours Test 10/28/17 09:34 10/29/17 07:06 Range/Units White Blood Count 6.26 6.01 4.8-10.8 K/uL Red Blood Count 2.65 2.60 4.7-6.1 M/uL Hemoglobin 8.3 8.2 14.0-18.0 g/dL Hematocrit 24.0 24.1 42-52 % Mean Corpuscular Volume 90.6 92.7 80-100 fL Mean Corpuscular Hemoglobin 31.3 31.5 25-34 pg Mean Corpuscular Hemoglobin Concent 34.6 34.0 32-36 g/dl RDW Standard Deviation 48.3 49.8 36.4-46.3 fL RDW Coefficient of Variation 14.6 14.8 11.5-14.5 % Platelet Count 253 271 130-400 K/uL Mean Platelet Volume 8.3 8.2 7.4-10.4 fL Nucleated RBC Absolute Count (auto) 0.02 0-0 K/uL Nucleated Red Blood Cells % 0.3 % Assessment & Plan 10/29/17 doing as expected awaiting return of bowel function pt/ot Dr. Heller covering for weekend 10/27/17 doing well pt wishes to keep arnold one more day. will plan to remove tomorrow awaiting return of bowel fx PT/OT 10/25/17 doing better than predicted at this point ok to remove ngt and try sips continue antibiotics supportive care appreciate ICU help 10/27/17 doing well pt wishes to keep arnold one more day. will plan to remove tomorrow awaiting return of bowel fx PT/OT 10/25/17 doing better than predicted at this point ok to remove ngt and try sips continue antibiotics supportive care appreciate ICU help
[2017-10-29 08:11] LABS: CALCIUM 7.8 mg/dl (8.5-10.1); CREATININE 0.74 mg/dl (0.60-1.40); POTASSIUM 3.5 mmol/L (3.5-5.1)
[2017-10-29] MEDS: METRONIDAZOLE 500MG / NSS IV SCH (08:26)
[2017-10-29] MEDS: POTASSIUM CHLORIDE 20 MEQ TABCR PO SCH ×2 (08:26→20:36)
[2017-10-29] MEDS: ENOXAPARIN 40 MG/0.4 ML SYR SQ SCH (08:26)
--- NOTE | 2017-10-29 11:09 | Progress Note ---
Progress Note Date of Service Oct 29, 2017. Progress Note ID Consult Dictated #[id number] A/P: 1. Peritonitis with Abscess 2. Leukocytosis - resolved -Will change to Ertapenem once daily -ok for picc line -Will need 21 days total pos op abx -Will need weekly cbc cmp while on abx -Will likely need repeat imagining post d/c -Can follow with ID post d/c from hospital, see consult for further details, thank you
--- NOTE | 2017-10-29 11:26 | ECHOCARDIOGRAM REPORT ---
*NOTICE TO RECEIVING DEMOCRAT AGENCY This information is strictly Confidential and protected under [place] law. [place] law prohibits you from making any further disclosure of this information unless further disclosure is expressly permitted by the written consent of the person to whom it pertains or is authorized by law. A general authorization for the release of medical or other information is not sufficient for this purpose. Hospital accepts no responsibility if the information is made available to any other person, INCLUDING THE PATIENT. Interpretation Summary * Name: HERBERT TEJEDA Study Date: 10/29/2017 07:31 AM BP: 128/79 mmHg * Patient Location: .ELECTRONICS TESTER\S\W354\S\2 HR: 81 * : 1950 (M/d/yyyy) Gender: Male Height: 69 in * Age: 67 yrs Ethnicity: [place] Weight: 202 lb * Ordering Physician: Jeni Harkins * Referring Physician: Self, Referred * Performed By: Maria Del Rosario Corral RDCS * * Reason For Study: Murmurs * BSA: 2.1 m2 * -- Conclusions -- * Normal LV chamber size with moderate concentric LVH. * Normal LV systolic function, EF 55-60%. * No segmental left ventricular wall motion abnormalities are noted. * Grade I diastolic dysfunction. * Moderately calcified aortic valve with mild stenosis and mild regurgitation. * Moderate mitral annular calcifications. Procedure Details * A complete two-dimensional transthoracic echocardiogram was performed (2D, M-mode, Doppler and color flow Doppler). * Patient refused Definity. Left Ventricle * The left ventricle is normal in size. * There is moderate concentric left ventricular hypertrophy. * Ejection Fraction = 55-60%. * Left ventricular systolic function is normal. * No segmental left ventricular wall motion abnormalities are noted. * The left ventricular wall motion is normal. Right Ventricle * The right ventricular cavity size is normal (basal dimension <4.2 cm in right ventricular apical 4-chamber view). * The right ventricular systolic function is normal as assessed by tricuspid annular plane systolic excursion (TAPSE) (normal >1.5 cm). Atria * The left atrial size is normal. * Right atrial size is normal. * No ASD detected; PFO is not assessed. Mitral Valve * There is moderate mitral annular calcification. * There is no mitral valve stenosis. * There is no mitral regurgitation noted. Tricuspid Valve * The tricuspid valve is normal in structure and function. Aortic Valve * The aortic valve is not well visualized. * Mild valvular aortic stenosis. * Mild aortic regurgitation. Pulmonic Valve * The pulmonary valve is not well seen, but the Doppler examination is normal without significant regurgitation or stenosis. Great Vessels * The aortic root is normal size. Pericardium/Pleural * There is no pericardial effusion. Left Ventricular Diastolic Function * Grade I diastolic dysfunction, (abnormal relaxation pattern). MMode 2D Measurements and Calculations IVSd 1.5 cm IVSs 1.5 cm LVIDd 3.4 cm LVIDs 2.3 cm LVPWd 1.5 cm LVPWs 1.9 cm IVS/LVPW 1.0 FS 32.0 % EDV(Teich) 46.4 ml ESV(Teich) 17.9 ml EF(Teich) 61.4 % EDV(cubed) 38.2 ml ESV(cubed) 12.0 ml EF(cubed) 68.6 % % IVS thick 3.5 % % LVPW thick 30.7 % LV mass(C)d 178.2 grams LV mass(C)dI 85.9 grams/m\S\2 LV mass(C)s 147.4 grams LV mass(C)sI 71.0 grams/m\S\2 SV(Teich) 28.4 ml SI(Teich) 13.7 ml/m\S\2 SV(cubed) 26.2 ml SI(cubed) 12.6 ml/m\S\2 Ao root diam 3.9 cm Ao root area 12.2 cm\S\2 ACS 1.8 cm LA dimension 2.4 cm LA/Ao 0.61 LVOT diam 2.0 cm LVOT area 3.3 cm\S\2 LVAd ap4 37.4 cm\S\2 LVLd ap4 8.7 cm EDV(MOD-sp4) 132.8 ml EDV(sp4-el) 136.4 ml LVAs ap4 20.7 cm\S\2 LVLs ap4 7.5 cm ESV(MOD-sp4) 53.7 ml ESV(sp4-el) 48.8 ml EF(MOD-sp4) 59.6 % EF(sp4-el) 64.2 % LVAd ap2 29.9 cm\S\2 LVLd ap2 8.2 cm EDV(MOD-sp2) 95.3 ml EDV(sp2-el) 92.3 ml LVAs ap2 18.4 cm\S\2 LVLs ap2 7.5 cm ESV(MOD-sp2) 41.2 ml ESV(sp2-el) 38.5 ml EF(MOD-sp2) 56.8 % EF(sp2-el) 58.2 % LVLd %diff -6.48 % EDV(MOD-bp) 114.1 ml LVLs %diff -0.31 % ESV(MOD-bp) 46.7 ml EF(MOD-bp) 59.1 % SV(MOD-sp4) 79.1 ml SI(MOD-sp4) 38.1 ml/m\S\2 SV(MOD-sp2) 54.1 ml SI(MOD-sp2) 26.1 ml/m\S\2 SV(MOD-bp) 67.4 ml SI(MOD-bp) 32.5 ml/m\S\2 SV(sp4-el) 87.6 ml SI(sp4-el) 42.2 ml/m\S\2 SV(sp2-el) 53.8 ml SI(sp2-el) 25.9 ml/m\S\2 Doppler Measurements and Calculations MV E max blanco 112.3 cm/sec MV A max blanco 156.4 cm/sec MV E/A 0.72 MV dec time 0.30 sec Ao V2 max 255.4 cm/sec Ao max PG 26.2 mmHg Ao max PG (full) 20.9 mmHg Ao V2 mean 158.6 cm/sec Ao mean PG 12.0 mmHg Ao mean PG (full) 8.5 mmHg Ao V2 VTI 46.3 cm MARIANELA(I,A) 1.8 cm\S\2 MARIANELA(I,D) 1.8 cm\S\2 MARIANELA(V,A) 1.5 cm\S\2 MARIANELA(V,D) 1.5 cm\S\2 AI max blanco 337.8 cm/sec AI max PG 45.9 mmHg AI dec slope 238.3 cm/sec\S\2 AI P1/2t 415.1 msec LV V1 max PG 5.3 mmHg LV V1 mean PG 3.4 mmHg LV V1 max 114.6 cm/sec LV V1 mean 88.1 cm/sec LV V1 VTI 24.9 cm SV(Ao) 564.3 ml SI(Ao) 272.0 ml/m\S\2 SV(LVOT) 81.7 ml SI(LVOT) 39.4 ml/m\S\2 PA V2 max 111.7 cm/sec PA max PG 5.0 mmHg PI max blanco 140.6 cm/sec PI max PG 7.9 mmHg PI dec slope 164.9 cm/sec\S\2 PI P1/2t 249.9 msec TR max blanco 238.6 cm/sec
--- NOTE | 2017-10-29 12:02 | INFECT. DISEASE CONSULTATION ---
DATE OF CONSULTATION: 10/29/2017 HISTORY OF PRESENT ILLNESS: This is a 67-year-old gentleman who was admitted to the hospital on the with nausea, vomiting and diffuse abdominal pain. He also did complain of distention. A CAT scan of the abdomen and pelvis was performed in the ER, which showed a perforation, diverticulitis, and a 10 x 13 x 14 cm abscess. He was taken to the OR and had partial colectomy with colostomy and irrigation and debridement. He did have intraoperative cultures from the , which are growing alpha strep and E. coli, which is pansensitive, and 2 subspecies of bacteroides. He initially was on vancomycin, fluconazole and Zosyn and then was deescalated to Rocephin. Flagyl was added yesterday when bacteroides species were identified on his intraoperative cultures and infectious diseases was consulted for antibiotic management. He initially had a leukocytosis of 11,000; however, this has improved. No blood cultures were obtained. He has been tolerating antibiotics well. He does continue to have incisional pain, but states overall he is feeling significantly better. He has had no additional nausea or vomiting. He currently is tolerating a clear liquid diet. He does stool in his ostomy. He has a KARMA drain in place, which is draining serosanguineous fluid. He denies any cough, chest pain or shortness of breath. His remaining review of systems is unremarkable. PAST MEDICAL HISTORY: Significant for pancreatitis, heart failure, coronary artery disease with LA. PAST SURGICAL HISTORY: As above, in addition to having an upper endoscopy and colonoscopy in 2011. FAMILY HISTORY: Noncontributory. SOCIAL HISTORY: Significant for history of tobacco use. He denies any alcohol or drug use. ALLERGIES: He has no known antibiotic allergies, but does report AN ALLERGY TO SEAFOOD. MEDICATIONS: Include magnesium, lisinopril, hydrochlorothiazide, Flagyl, Fioricet, Lovenox, potassium, Rocephin, Tylenol, Percocet, Dilaudid and Zofran. PHYSICAL EXAMINATION: VITAL SIGNS: He is afebrile, pulse 85, respiratory rate 18, blood pressure 149/79, oxygen saturation is 98% on room air. GENERAL: He is awake, alert and oriented x3. He is in no acute distress. HEENT: Mucous membranes are moist. Extraocular muscles are intact. HEART: Regular. LUNGS: Clear bilaterally. ABDOMEN: Soft. Dressing over the incision is clean, dry and intact. Ostomy reveals pink stoma with liquid stool. A KARMA drain is in the left lower quadrant with serosanguineous drainage. EXTREMITIES: There is no lower extremity edema bilaterally. SKIN: Without rash. LABORATORY STUDIES: CBC today reveals a white blood cell count of 6.0, hemoglobin 8.2 and platelets of 271. Chemistry panel reveals a sodium of 138, potassium 3.5, chloride 103, bicarbonate 31, BUN 10, creatinine 0.7, glucose is 103. LFTs were normal on the . Urinalysis had no bacteria and greater than 30 epithelial cells. Again, abscess culture from the operating room grew pansensitive E. coli, alpha strep, not enterococcus and bacteroides. Most recent chest x-ray was done on the and shows atelectasis. CAT scan of the abdomen and pelvis is as above. ASSESSMENT AND PLAN: 1. Peritonitis, polymicrobial. 2. Leukocytosis, resolved at this time. He would like to continue on intravenous antibiotics and certainly, he did not have a full diet and will be continued on IV antibiotics. We did discuss transition to oral versus intravenous antibiotics upon discharge from the hospital, and he would prefer to remain on IV antibiotics and I am in agreement with this. We discussed several options and I think the best fit for him would be ertapenem as this is a once daily infusion. He does not know if he will be going to a fpc facility or to home with home health upon discharge, but is not disagreeable to going to rehab if needed. I would suggest a minimum of 21 days postoperative antibiotics secondary to perforation and a large abscess identified at the time of his surgery. He will need weekly CBC and chemistry panels while on antibiotics and certainly can follow with infectious diseases in the office post discharge from the hospital.
[2017-10-29] MEDS: ERTAPENEM IV 1 GM in SODIUM CHLOR 0.9% AD-VAN 50ML 50 ML IV SCH (12:06)
[2017-10-29] MEDS: MAGNESIUM SULFATE 1GM / D5W 1 GM in PREMIXED IN D5W 100 ML IV SCH ×2 (13:08→14:11)
[2017-10-29 15:53] VITALS: BP 121/82; PULSE 80; TEMP 36.7; O2SAT 95
--- NOTE | 2017-10-29 18:18 | Progress Note ---
Medicine Progress Note Date & Time of Visit: Oct 29, 2017 at 18:15. Subjective -pt is doing well -reports pain is well controlled -tolerating clear diet -no stoma output -pt requests to move to other side of room as he feels claustrophobic and is not improving on his current side Objective Last 8 Hrs Date Time Temp Pulse Resp B/P (MAP) Pulse Ox O2 Delivery O2 Flow Rate FiO2 10/29/17 15:53 36.7 80 17 121/82 (95) 95 Room Air Physical Exam: GEN: WNWD, in no acute distress, alert and appropriate HEENT: NC/AT, normal sclerae, MMM CARDIO: reg rate, 3/6 LISBET heard LUNGS: CTA bilaterally, no crackles, rales or wheezes, good diaphragmatic excursion ABD: soft, nontender, non-distended, no rebound or guarding, colostomy bag in place. EXTREMITY: RP and DP palpable 2+ bilat, no LE swelling or edema, extremities are warm and well-perfused NEURO: CN 2-12 grossly intact MUSC: 5/5 strength throughout, no gross focal deficits SKIN: warm and dry Laboratory Results: Last 24 Hours Test 10/29/17 07:06 White Blood Count 6.01 K/uL Red Blood Count 2.60 M/uL Hemoglobin 8.2 g/dL Hematocrit 24.1 % Mean Corpuscular Volume 92.7 fL Mean Corpuscular Hemoglobin 31.5 pg Mean Corpuscular Hemoglobin Concent 34.0 g/dl RDW Standard Deviation 49.8 fL RDW Coefficient of Variation 14.8 % Platelet Count 271 K/uL Mean Platelet Volume 8.2 fL Sodium Level 138 mmol/L Potassium Level 3.5 mmol/L Chloride Level 103 mmol/L Carbon Dioxide Level 31 mmol/L Anion Gap 4.0 mmol/L Blood Urea Nitrogen 10 mg/dl Creatinine 0.74 mg/dl Est Creatinine Clear Calc Drug Dose 107.0 ml/min Estimated GFR () 109.8 Estimated GFR (Non- 94.8 BUN/Creatinine Ratio 13.0 Random Glucose 103 mg/dl Calcium Level 7.8 mg/dl Magnesium Level 1.7 mg/dl Assessment & Plan This is a 67 yo M with a PMH of HTN, migraines and GERD who presented to the ED with abdominal pain, distention and nausea on 10/24 and was found to have perforated diverticulitis with abscesses and is s/p emergency ex lap. Perforated diverticulitis POD #4 s/p ex lap: -Dr Shea performed partial transverse colectomy, partial small bowel resection, drainage of multiple abscesses and creation of a colostomy and mucous fistula -Pt is doing well post-operatively but still with ileus and no stoma output. Transferred from ICU to [facility] 10/27 -Minimal abd discomfort and tolerating clear liquid diet. -Antibiotic coverage changed by ID to once daily ertapenem for [address] PICC tomorrow. -Per general surgery for pain control, wound care, fluid management, anticoagulation and activities -Monitor H&H, continue incentive spirometry, PT/OT Systolic murmur heard on exam: not in record as having this prior. TTE reveals mild aortic stenosis. Dilutional anemia in post-op setting-H/H stable. No transfusion needed at this time. HTN: -Normotensive -Continue home lisinopril/hctz -Monitor Hypokalemia: replaced, recheck in am. H/o migraines: -Stable -Fioricet PRN DVT Ppx: Lovenox SQ Full Code Dispo: Per general surgery [facility] Current Inpatient Medications: Current Inpatient Medications Medications (Trade) Dose Ordered Sig/King Route Start Time Stop Time Status Last Admin Dose Admin Acetaminophen 100 ml @ 400 mls/hr Q8H PRN IV 10/24/17 20:15 11/23/17 20:14 Acetaminophen/ Hydrocodone Bitart ([place] 5/325 Tab) 1 tab Q4H PRN PO 10/24/17 20:15 11/07/17 20:14 Hydromorphone HCl (Dilaudid Inj) 0.5 mg Q3H PRN IV 10/24/17 20:15 11/07/17 20:14 10/27/17 05:12 0.5 MG Acetaminophen/ Hydrocodone Bitart (Wolf 5/325 Tab) 2 tab Q4H PRN PO 10/24/17 20:15 11/07/17 20:14 10/29/17 17:08 2 TAB Hydromorphone HCl (Dilaudid Inj) 1 mg Q3H PRN IV 10/24/17 20:15 11/07/17 20:14 1/24/18 11:23 1 MG Ondansetron HCl (Zofran Inj) 4 mg Q6H PRN IV 10/24/17 20:15 11/23/17 20:14 10/26/17 15:31 4 MG Enoxaparin Sodium (Lovenox Inj) 40 mg DAILY SQ 10/27/17 09:00 11/26/17 08:59 10/29/17 08:26 40 MG Potassium Chloride (Klor-Con Tab) 20 meq BID PO 10/27/17 09:00 11/26/17 08:59 10/28/17 08:20 20 MEQ Acetaminophen/ Butalbital/ Caffeine (Fioricet Tab) 1 tab Q4 PRN PO 10/27/17 15:15 11/26/17 15:14 HCTZ/Lisinopril (Prinzide 20-12.5MG Tab) 0.5 tab QPM PO 10/28/17 21:00 11/26/17 20:59 10/28/17 22:05 0.5 TAB Ertapenem 1 gm/ Sodium Chloride 50 ml @ 120 mls/hr Q24H IV 10/29/17 12:00 11/08/17 11:59 10/29/17 12:06 120 MLS/HR
[2017-10-29] MEDS: LISINOPRIL/HCTZ 20/12.5MG TAB PO SCH (20:36)
[2017-10-29 23:20] VITALS: BP 136/81; PULSE 83; TEMP 36.5; O2SAT 99
[2017-10-30] MEDS: HYDROCODONE/ACETAMOPHEN 5/325MG TAB PO PRN ×2 (02:03→07:36)
[2017-10-30 06:55] VITALS: BP 137/79; PULSE 84; TEMP 36.6; O2SAT 98
[2017-10-30 08:03] LABS: MEAN CELL VOLUME 93.1 fL (80-100); MEAN CORPUSCULAR HGB CONC 33.3 g/dl (32-36); MEAN PLATELET VOLUME 8.3 fL (7.4-10.4); PLATELET COUNT 295 K/uL (130-400); RED CELL DISTRIBUTION WIDTH SD 50.8 fL (36.4-46.3)
[2017-10-30 08:34] LABS: CALCIUM 8.2 mg/dl (8.5-10.1); CREATININE 0.67 mg/dl (0.60-1.40); POTASSIUM 3.2 mmol/L (3.5-5.1)
[2017-10-30] MEDS: POTASSIUM CHLORIDE 20 MEQ TABCR PO SCH (08:36)
--- NOTE | 2017-10-30 09:36 | Surgery Progress Note ---
Surgery Progress Note Date of Service Oct 30, 2017. Subjective Post OP Day: 6 + feeling well, + bowel movement (colostomy functioning, bag contains stool and gas), + pain controlled (getting 2 [place] 5/325, he asked about getting 1 [place] 10/325 so he does not max Tylenol dose), No nausea, No vomiting Objective Vital Signs: Date Time Temp Pulse Resp B/P (MAP) Pulse Ox O2 Delivery O2 Flow Rate FiO2 10/30/17 06:55 36.6 84 16 137/79 (98) 98 Room Air 10/30/17 00:25 Room Air 10/29/17 23:20 36.5 83 18 136/81 (99) 99 Room Air 10/29/17 15:53 36.7 80 17 121/82 (95) 95 Room Air 10/29/17 15:45 Room Air Physical Exam: KARMA drainage (KARMA #1: 40 cc yesterday, 10 cc last shift; KARMA #2: 10 yesterday, 10 cc last shift: all serosanguinous) Abdomen: non tender, non distended, soft Incision(s): clean, dry, no erythema Laboratory Results: Results Past 24 Hours Test 10/30/17 07:21 Range/Units White Blood Count 7.10 4.8-10.8 K/uL Red Blood Count 2.90 4.7-6.1 M/uL Hemoglobin 9.0 14.0-18.0 g/dL Hematocrit 27.0 42-52 % Mean Corpuscular Volume 93.1 80-100 fL Mean Corpuscular Hemoglobin 31.0 25-34 pg Mean Corpuscular Hemoglobin Concent 33.3 32-36 g/dl RDW Standard Deviation 50.8 36.4-46.3 fL RDW Coefficient of Variation 15.0 11.5-14.5 % Platelet Count 295 130-400 K/uL Mean Platelet Volume 8.3 7.4-10.4 fL Sodium Level 138 136-145 mmol/L Potassium Level 3.2 3.5-5.1 mmol/L Chloride Level 102 98-107 mmol/L Carbon Dioxide Level 28 21-32 mmol/L Anion Gap 7.0 3-11 mmol/L Blood Urea Nitrogen 9 7-18 mg/dl Creatinine 0.67 0.60-1.40 mg/dl Est Creatinine Clear Calc Drug Dose 118.2 ml/min Estimated GFR () 114.4 Estimated GFR (Non- 98.7 BUN/Creatinine Ratio 13.8 10-20 Random Glucose 102 70-99 mg/dl Calcium Level 8.2 8.5-10.1 mg/dl Magnesium Level 2.1 1.8-2.4 mg/dl Assessment & Plan S/P colon and small bowel resection Colostomy has begun to function Can advance diet Continue OT/PT Change to [place]
[2017-10-30] MEDS: ENOXAPARIN 40 MG/0.4 ML SYR SQ SCH (10:12)
[2017-10-30] MEDS ORDERED: ACETAMINOPHEN 325 MG TAB PO PRN (10:15)
[2017-10-30] MEDS: HYDROCODONE/ACETAMI 10/325 TAB PO PRN ×3 (12:27→21:24)
[2017-10-30] MEDS: ERTAPENEM IV 1 GM in SODIUM CHLOR 0.9% AD-VAN 50ML 50 ML IV SCH (12:43)
[2017-10-30] MEDS ORDERED: POTASSIUM CHLORIDE 20 MEQ TABCR PO SCH (14:45)
[2017-10-30 15:24] VITALS: BP 152/80; PULSE 92; TEMP 37; O2SAT 98
--- NOTE | 2017-10-30 18:34 | Progress Note ---
Medicine Progress Note Date & Time of Visit: Oct 30, 2017 at 10:13. Subjective -doing well -asymptomatic -PICC consent reviewed. -ambulating with assit -diet advanced per surgery -pain well managed with hydrocodone. Objective Last 8 Hrs Date Time Temp Pulse Resp B/P (MAP) Pulse Ox O2 Delivery O2 Flow Rate FiO2 10/30/17 06:55 36.6 84 16 137/79 (98) 98 Room Air Physical Exam: GEN: WNWD, in no acute distress, alert and appropriate HEENT: NC/AT, normal sclerae, MMM CARDIO: reg rate, 3/6 LISBET heard LUNGS: CTA bilaterally, no crackles, rales or wheezes, good diaphragmatic excursion ABD: soft, nontender, non-distended, no rebound or guarding, colostomy bag in place-stool in bag. EXTREMITY: RP and DP palpable 2+ bilat, no LE swelling or edema, extremities are warm and well-perfused NEURO: CN 2-12 grossly intact MUSC: 5/5 strength throughout, no gross focal deficits SKIN: warm and dry Laboratory Results: 10/30/17 07:21 10/30/17 07:21 Test 10/24/17 14:33 10/24/17 14:46 10/24/17 21:23 10/25/17 00:05 Total Creatine Kinase 35 U/L (39-308) Creatine Kinase MB 2.1 ng/ml (0.5-3.6) Creatine Kinase MB Ratio 6.0 (0-3.0) Troponin I 0.027 ng/ml (0-0.045) Lipase 207 U/L (73-393) Bedside Lactic Acid Venous 1.58 mmol/L (0.90-1.70) Ionized Calcium 1.03 mmol/l (1.12-1.32) Globulin 3.8 gm/dl (2.5-4.0) Albumin/Globulin Ratio 0.3 (0.9-2) Urine Color DK YELLOW Urine Appearance CLOUDY (CLEAR) Urine pH 5.0 (4.5-7.5) Urine Specific [place] 1.026 (1.000-1.030) Urine Protein 1+ (NEG) Urine Glucose (UA) TRACE (NEG) Urine Ketones 1+ (NEG) Urine Occult Blood TRACE (NEG) Urine Nitrite NEG (NEG) Urine Bilirubin NEG (NEG) Urine Urobilinogen NEG (NEG) Urine Leukocyte Esterase NEG (NEG) Urine WBC (Auto) 10-30 /hpf (0-5) Urine RBC (Auto) 0-4 /hpf (0-4) Urine Hyaline Casts (Auto) 5-10 /lpf (0-5) Urine Epithelial Cells (Auto) >30 /lpf (0-5) Urine Bacteria (Auto) NEG (NEG) Urine Renal Epithelial Cells /lpf (0-5) Urine Crystals AMORPHOUS SEDIMENT (NONE Urine Pathogenic Casts 0-3 GRANULAR CASTS /lpf (0) Urine Yeast (Auto) BUD W/ HYPHAE (NONE PRSENT) Urine Sperm (Auto) PRESENT (NOT PRESENT) Test 10/25/17 05:57 10/25/17 06:07 10/25/17 21:00 10/26/17 05:37 Blood Gas Pressure Support 5 Blood Gas Specimen Type ARTERIAL Blood Gas Sample Site L Radial Blood Gas Patient Temperature 36.5 Bedside Blood Gas pH (LAB) 7.47 (7.35-7.45) Bedside Blood Gas pCO2 (LAB) 22 mmHg (35-46) Bedside Blood Gas pO2 (LAB) 147 mmHg (80-95) Bedside Blood Gas HCO3 (LAB) 17 meq/L (19-24) Bedside Blood Gas Total CO2 17 mEq/l (24-31) Bedside Blood Gas Base Excess (LAB) -7.0 meq/L (-9-1.8) Bedside Blood Gas O2 Saturation 99.0 % (90-95) Oxygen Saturation (Pulse Oximetry) 99 % Bayron Test ACCEPTABLE Oxygen Delivery Device Ventilator Bedside FiO2 35 % Blood Gas PEEP 5 Random Vancomycin Level 15.7 mcg/ml Lactic Acid Level 1.0 mmol/L (0.4-2.0) Phosphorus Level 2.0 mg/dl (2.5-4.9) Total Bilirubin 0.8 mg/dl (0.2-1) Direct Bilirubin 0.6 mg/dl (0-0.2) Aspartate Amino Transf (AST/SGOT) 22 U/L (15-37) Alanine Aminotransferase (ALT/SGPT) 15 U/L (12-78) Alkaline Phosphatase 71 U/L (45-117) Total Protein 4.7 gm/dl (6.4-8.2) Albumin 1.1 gm/dl (3.4-5.0) Test 10/26/17 06:35 10/27/17 05:43 10/28/17 09:34 10/30/17 07:21 Bedside Glucose 131 mg/dl (70-99) Immature Granulocyte % (Auto) 4.9 % White Blood Count 9.37 K/uL (4.8-10.8) Red Blood Count 2.51 M/uL (4.7-6.1) 2.90 M/uL (4.7-6.1) Hemoglobin 7.8 g/dL (14.0-18.0) Hematocrit 22.8 % (42-52) Mean Corpuscular Volume 90.8 fL (80-100) 93.1 fL (80-100) Mean Corpuscular Hemoglobin 31.1 pg (25-34) 31.0 pg (25-34) Mean Corpuscular Hemoglobin Concent 34.2 g/dl (32-36) 33.3 g/dl (32-36) Platelet Count 239 K/uL (130-400) Mean Platelet Volume 8.3 fL (7.4-10.4) 8.3 fL (7.4-10.4) Neutrophils (%) (Auto) 78.9 % Lymphocytes (%) (Auto) 7.7 % Monocytes (%) (Auto) 8.1 % Eosinophils (%) (Auto) 0.3 % Basophils (%) (Auto) 0.1 % Neutrophils # (Auto) 7.39 K/uL (1.4-6.5) Lymphocytes # (Auto) 0.72 K/uL (1.2-3.4) Monocytes # (Auto) 0.76 K/uL (0.11-0.59) Eosinophils # (Auto) 0.03 K/uL (0-0.5) Basophils # (Auto) 0.01 K/uL (0-0.2) Immature Granulocyte # (Auto) 0.46 K/uL (0.00-0.02) Red Blood Cell Morphology Unremarkable Prothrombin Time 18.2 SECONDS (9.0-12.0) Prothromb Time International Ratio 1.8 (0.9-1.1) Activated Partial Thromboplast Time 41.9 SECONDS (21.0-31.0) Partial Thromboplastin Ratio 1.6 Nucleated RBC Absolute Count (auto) 0.02 K/uL (0-0) Nucleated Red Blood Cells % 0.3 % RDW Standard Deviation 50.8 fL (36.4-46.3) RDW Coefficient of Variation 15.0 % (11.5-14.5) Anion Gap 7.0 mmol/L (3-11) Est Creatinine Clear Calc Drug Dose 118.2 ml/min Estimated GFR () 114.4 Estimated GFR (Non- 98.7 BUN/Creatinine Ratio 13.8 (10-20) Calcium Level 8.2 mg/dl (8.5-10.1) Magnesium Level 2.1 mg/dl (1.8-2.4) Date/Time Source Procedure Growth Status 10/24/17 20:20 Nasal MRSA DNA Surveillance Screen - Final Specimen Negative for MRSA by DNA Probe Complete 10/24/17 17:30 Abscess Abdomen Gram Stain - Final Complete 10/24/17 17:30 Bacterial Culture - Final Escherichia Coli Alpha Strep. Not Enterococcus Bacteroides Uniformis Bacteroides Thetaiotaomicron Complete Last 24 Hours Test 10/30/17 07:21 White Blood Count 7.10 K/uL Red Blood Count 2.90 M/uL Hemoglobin 9.0 g/dL Hematocrit 27.0 % Mean Corpuscular Volume 93.1 fL Mean Corpuscular Hemoglobin 31.0 pg Mean Corpuscular Hemoglobin Concent 33.3 g/dl RDW Standard Deviation 50.8 fL RDW Coefficient of Variation 15.0 % Platelet Count 295 K/uL Mean Platelet Volume 8.3 fL Sodium Level 138 mmol/L Potassium Level 3.2 mmol/L Chloride Level 102 mmol/L Carbon Dioxide Level 28 mmol/L Anion Gap 7.0 mmol/L Blood Urea Nitrogen 9 mg/dl Creatinine 0.67 mg/dl Est Creatinine Clear Calc Drug Dose 118.2 ml/min Estimated GFR () 114.4 Estimated GFR (Non- 98.7 BUN/Creatinine Ratio 13.8 Random Glucose 102 mg/dl Calcium Level 8.2 mg/dl Magnesium Level 2.1 mg/dl Assessment & Plan This is a 67 yo M with a PMH of HTN, migraines and GERD who presented to the ED with abdominal pain, distention and nausea on 10/24 and was found to have perforated diverticulitis with abscesses and is s/p emergency ex lap. Perforated diverticulitis POD #5 s/p ex lap: -Dr Shea performed partial transverse colectomy, partial small bowel resection, drainage of multiple abscesses and creation of a colostomy and mucous fistula -Pt is doing well post-operatively with some stoma output overnight. -Minimal abd discomfort and tolerating clear liquid diet. Advance per surgery -Antibiotic coverage changed by ID to once daily ertapenem for 21 days. Consented for PICC which was ordered. -Per general surgery for pain control, wound care, fluid management, anticoagulation and activities -Monitor H&H, continue incentive spirometry, PT/OT Systolic murmur heard on exam: not in record as having this prior. TTE reveals mild aortic stenosis. Reviewed results with patient. Dilutional anemia in post-op setting-H/H stable. No transfusion needed at this time. HTN: -Normotensive -Continue home lisinopril/hctz -Monitor Hypokalemia: declining PO potassium. Advanced diet. Will recheck in am and give IV replacement if needed. H/o migraines: -Stable -Fioricet PRN DVT Ppx: Lovenox SQ Full Code Dispo: Per general surgery Jeni Harkins DO [facility] Hospitalist Current Inpatient Medications: Current Inpatient Medications Medications (Trade) Dose Ordered Sig/King Route Start Time Stop Time Status Last Admin Dose Admin Acetaminophen 100 ml @ 400 mls/hr Q8H PRN IV 10/24/17 20:15 11/23/17 20:14 Hydromorphone HCl (Dilaudid Inj) 0.5 mg Q3H PRN IV 10/24/17 20:15 11/07/17 20:14 10/27/17 05:12 0.5 MG Hydromorphone HCl (Dilaudid Inj) 1 mg Q3H PRN IV 10/24/17 20:15 11/07/17 20:14 10/27/17 11:23 1 MG Ondansetron HCl (Zofran Inj) 4 mg Q6H PRN IV 10/24/17 20:15 11/23/17 20:14 10/26/17 15:31 4 MG Enoxaparin Sodium (Lovenox Inj) 40 mg DAILY SQ 10/27/17 09:00 11/26/17 08:59 10/30/17 10:12 40 MG Potassium Chloride (Klor-Con Tab) 20 meq BID PO 10/27/17 09:00 11/26/17 08:59 10/28/17 08:20 20 MEQ Acetaminophen/ Butalbital/ Caffeine (Fioricet Tab) 1 tab Q4 PRN PO 10/27/17 15:15 11/26/17 15:14 HCTZ/Lisinopril (Prinzide 20-12.5MG Tab) 0.5 tab QPM PO 10/28/17 21:00 11/26/17 20:59 10/29/17 20:36 0.5 TAB Ertapenem 1 gm/ Sodium Chloride 50 ml @ 120 mls/hr Q24H IV 10/29/17 12:00 11/08/17 11:59 10/29/17 12:06 120 MLS/HR Acetaminophen/ Hydrocodone Bitart ([place] 10/325 Tab) 1 tab Q4H PRN PO 10/30/17 11:00 11/13/17 10:59
[2017-10-30] MEDS ORDERED: NURSING VERBAL MED ORDER ONE (19:00)
[2017-10-30 21:34] VITALS: BP 133/83; PULSE 92
[2017-10-30] MEDS: LISINOPRIL/HCTZ 20/12.5MG TAB PO SCH (21:35)
[2017-10-30 23:35] VITALS: BP 128/82; PULSE 89; TEMP 36.5; O2SAT 98
[2017-10-31] MEDS: HYDROCODONE/ACETAMI 10/325 TAB PO PRN ×5 (01:31→22:33)
[2017-10-31 06:43] LABS: CALCIUM 7.7 mg/dl (8.5-10.1); CREATININE 0.73 mg/dl (0.60-1.40); POTASSIUM 3.2 mmol/L (3.5-5.1)
[2017-10-31 07:40] VITALS: BP 147/81; PULSE 88; TEMP 36.6; O2SAT 97
[2017-10-31] MEDS ORDERED: POTASSIUM CHLORIDE INJ 40 MEQ in SODIUM CHLORIDE 0.9% 500ML 500 ML IV SCH (08:30)
--- NOTE | 2017-10-31 10:21 | Surgery Progress Note ---
Surgery Progress Note Date of Service Oct 31, 2017. Subjective Post OP Day: 7 + bowel movement, + diet (toolerated clears), No nausea, No vomiting Objective Vital Signs: Date Time Temp Pulse Resp B/P (MAP) Pulse Ox O2 Delivery O2 Flow Rate FiO2 10/31/17 07:40 36.6 88 16 147/81 (103) 97 Room Air 10/30/17 23:35 36.5 89 18 128/82 (97) 98 Nasal Cannula 10/30/17 23:25 Room Air 10/30/17 21:34 92 133/83 (100) 10/30/17 15:30 Room Air 10/30/17 15:24 37.0 92 18 152/80 (104) 98 Room Air Physical Exam: KARMA drainage (KARMA #1: 25 cc yesterday, 5 last shift; KARMA #2: 20 cc yesterday, 3 cc last shift; serosanguinous) Abdomen: normal bowel sounds Incision(s): clean, intact, no erythema, drainage (small amount) Laboratory Results: Results Past 24 Hours Test 10/31/17 05:19 Range/Units Sodium Level 137 136-145 mmol/L Potassium Level 3.2 3.5-5.1 mmol/L Chloride Level 103 98-107 mmol/L Carbon Dioxide Level 30 21-32 mmol/L Anion Gap 4.0 3-11 mmol/L Blood Urea Nitrogen 8 7-18 mg/dl Creatinine 0.73 0.60-1.40 mg/dl Est Creatinine Clear Calc Drug Dose 108.5 ml/min Estimated GFR () 110.5 Estimated GFR (Non- 95.3 BUN/Creatinine Ratio 11.6 10-20 Random Glucose 94 70-99 mg/dl Calcium Level 7.7 8.5-10.1 mg/dl Assessment & Plan S/P colon and small bowel resection Colostomy continues to function Can advance diet again Continue OT/PT Changed to [place] , more comfortable
[2017-10-31] MEDS: ENOXAPARIN 40 MG/0.4 ML SYR SQ SCH (11:50)
[2017-10-31] MEDS: ERTAPENEM IV 1 GM in SODIUM CHLOR 0.9% AD-VAN 50ML 50 ML IV SCH (13:11)
[2017-10-31 15:42] VITALS: BP 131/78; PULSE 98; TEMP 36.6; O2SAT 98
--- NOTE | 2017-10-31 17:08 | Progress Note ---
Medicine Progress Note Date & Time of Visit: Oct 31, 2017 at 0900. Subjective This is a 67 yo M with a PMH of HTN, migraines and GERD who presented to the ED with abdominal pain, distention and nausea on 10/24 and was found to have perforated diverticulitis with abscesses and is s/p emergency ex lap. Doing well today, tolerating PO, stoma output. Still hesitant to ambulate. Still requesting narcotics q4hrs. We discussed risks of opioid dependence and he verbalized understanding with intent to comply. Objective Last 8 Hrs Date Time Temp Pulse Resp B/P (MAP) Pulse Ox O2 Delivery O2 Flow Rate FiO2 10/31/17 15:42 36.6 98 17 131/78 (95) 98 Room Air Physical Exam: GEN: WNWD, in no acute distress, alert and appropriate HEENT: NC/AT, normal sclerae, MMM CARDIO: reg rate, 3/6 LISBET heard LUNGS: CTA bilaterally, no crackles, rales or wheezes, good diaphragmatic excursion ABD: soft, nontender, non-distended, no rebound or guarding, colostomy bag in place-stool in bag. +BS EXTREMITY: RP and DP palpable 2+ bilat, no LE swelling or edema, extremities are warm and well-perfused NEURO: CN 2-12 grossly intact MUSC: 5/5 strength throughout, no gross focal deficits SKIN: warm and dry Laboratory Results: 10/30/17 07:21 10/31/17 05:19 Test 10/24/17 14:33 10/24/17 14:46 10/24/17 21:23 10/25/17 00:05 Total Creatine Kinase 35 U/L (39-308) Creatine Kinase MB 2.1 ng/ml (0.5-3.6) Creatine Kinase MB Ratio 6.0 (0-3.0) Troponin I 0.027 ng/ml (0-0.045) Lipase 207 U/L (73-393) Bedside Lactic Acid Venous 1.58 mmol/L (0.90-1.70) Ionized Calcium 1.03 mmol/l (1.12-1.32) Globulin 3.8 gm/dl (2.5-4.0) Albumin/Globulin Ratio 0.3 (0.9-2) Urine Color DK YELLOW Urine Appearance CLOUDY (CLEAR) Urine pH 5.0 (4.5-7.5) Urine Specific [place] 1.026 (1.000-1.030) Urine Protein 1+ (NEG) Urine Glucose (UA) TRACE (NEG) Urine Ketones 1+ (NEG) Urine Occult Blood TRACE (NEG) Urine Nitrite NEG (NEG) Urine Bilirubin NEG (NEG) Urine Urobilinogen NEG (NEG) Urine Leukocyte Esterase NEG (NEG) Urine WBC (Auto) 10-30 /hpf (0-5) Urine RBC (Auto) 0-4 /hpf (0-4) Urine Hyaline Casts (Auto) 5-10 /lpf (0-5) Urine Epithelial Cells (Auto) >30 /lpf (0-5) Urine Bacteria (Auto) NEG (NEG) Urine Renal Epithelial Cells /lpf (0-5) Urine Crystals AMORPHOUS SEDIMENT (NONE Urine Pathogenic Casts 0-3 GRANULAR CASTS /lpf (0) Urine Yeast (Auto) BUD W/ HYPHAE (NONE PRSENT) Urine Sperm (Auto) PRESENT (NOT PRESENT) Test 10/25/17 05:57 10/25/17 06:07 10/25/17 21:00 10/26/17 05:37 Blood Gas Pressure Support 5 Blood Gas Specimen Type ARTERIAL Blood Gas Sample Site L Radial Blood Gas Patient Temperature 36.5 Bedside Blood Gas pH (LAB) 7.47 (7.35-7.45) Bedside Blood Gas pCO2 (LAB) 22 mmHg (35-46) Bedside Blood Gas pO2 (LAB) 147 mmHg (80-95) Bedside Blood Gas HCO3 (LAB) 17 meq/L (19-24) Bedside Blood Gas Total CO2 17 mEq/l (24-31) Bedside Blood Gas Base Excess (LAB) -7.0 meq/L (-9-1.8) Bedside Blood Gas O2 Saturation 99.0 % (90-95) Oxygen Saturation (Pulse Oximetry) 99 % Bayron Test ACCEPTABLE Oxygen Delivery Device Ventilator Bedside FiO2 35 % Blood Gas PEEP 5 Random Vancomycin Level 15.7 mcg/ml Lactic Acid Level 1.0 mmol/L (0.4-2.0) Phosphorus Level 2.0 mg/dl (2.5-4.9) Total Bilirubin 0.8 mg/dl (0.2-1) Direct Bilirubin 0.6 mg/dl (0-0.2) Aspartate Amino Transf (AST/SGOT) 22 U/L (15-37) Alanine Aminotransferase (ALT/SGPT) 15 U/L (12-78) Alkaline Phosphatase 71 U/L (45-117) Total Protein 4.7 gm/dl (6.4-8.2) Albumin 1.1 gm/dl (3.4-5.0) Test 10/26/17 06:35 10/27/17 05:43 10/28/17 09:34 10/30/17 07:21 Bedside Glucose 131 mg/dl (70-99) Immature Granulocyte % (Auto) 4.9 % White Blood Count 9.37 K/uL (4.8-10.8) Red Blood Count 2.51 M/uL (4.7-6.1) 2.90 M/uL (4.7-6.1) Hemoglobin 7.8 g/dL (14.0-18.0) Hematocrit 22.8 % (42-52) Mean Corpuscular Volume 90.8 fL (80-100) 93.1 fL (80-100) Mean Corpuscular Hemoglobin 31.1 pg (25-34) 31.0 pg (25-34) Mean Corpuscular Hemoglobin Concent 34.2 g/dl (32-36) 33.3 g/dl (32-36) Platelet Count 239 K/uL (130-400) Mean Platelet Volume 8.3 fL (7.4-10.4) 8.3 fL (7.4-10.4) Neutrophils (%) (Auto) 78.9 % Lymphocytes (%) (Auto) 7.7 % Monocytes (%) (Auto) 8.1 % Eosinophils (%) (Auto) 0.3 % Basophils (%) (Auto) 0.1 % Neutrophils # (Auto) 7.39 K/uL (1.4-6.5) Lymphocytes # (Auto) 0.72 K/uL (1.2-3.4) Monocytes # (Auto) 0.76 K/uL (0.11-0.59) Eosinophils # (Auto) 0.03 K/uL (0-0.5) Basophils # (Auto) 0.01 K/uL (0-0.2) Immature Granulocyte # (Auto) 0.46 K/uL (0.00-0.02) Red Blood Cell Morphology Unremarkable Prothrombin Time 18.2 SECONDS (9.0-12.0) Prothromb Time International Ratio 1.8 (0.9-1.1) Activated Partial Thromboplast Time 41.9 SECONDS (21.0-31.0) Partial Thromboplastin Ratio 1.6 Nucleated RBC Absolute Count (auto) 0.02 K/uL (0-0) Nucleated Red Blood Cells % 0.3 % RDW Standard Deviation 50.8 fL (36.4-46.3) RDW Coefficient of Variation 15.0 % (11.5-14.5) Magnesium Level 2.1 mg/dl (1.8-2.4) Test 10/31/17 05:19 Anion Gap 4.0 mmol/L (3-11) Est Creatinine Clear Calc Drug Dose 108.5 ml/min Estimated GFR () 110.5 Estimated GFR (Non- 95.3 BUN/Creatinine Ratio 11.6 (10-20) Calcium Level 7.7 mg/dl (8.5-10.1) Date/Time Source Procedure Growth Status 10/24/17 20:20 Nasal MRSA DNA Surveillance Screen - Final Specimen Negative for MRSA by DNA Probe Complete 10/24/17 17:30 Abscess Abdomen Gram Stain - Final Complete 10/24/17 17:30 Bacterial Culture - Final Escherichia Coli Alpha Strep. Not Enterococcus Bacteroides Uniformis Bacteroides Thetaiotaomicron Complete Last 24 Hours Test 10/31/17 05:19 Sodium Level 137 mmol/L Potassium Level 3.2 mmol/L Chloride Level 103 mmol/L Carbon Dioxide Level 30 mmol/L Anion Gap 4.0 mmol/L Blood Urea Nitrogen 8 mg/dl Creatinine 0.73 mg/dl Est Creatinine Clear Calc Drug Dose 108.5 ml/min Estimated GFR () 110.5 Estimated GFR (Non- 95.3 BUN/Creatinine Ratio 11.6 Random Glucose 94 mg/dl Calcium Level 7.7 mg/dl Assessment & Plan This is a 67 yo M with a PMH of HTN, migraines and GERD who presented to the ED with abdominal pain, distention and nausea on 10/24 and was found to have perforated diverticulitis with abscesses and is s/p emergency ex lap. Doing well today, tolerating PO, stoma output. Still hesitant to ambulate. Still requesting narcotics q4hrs. We discussed risks of opioid dependence and he verbalized understanding with intent to comply. Perforated diverticulitis POD #6 s/p ex lap: -Dr Shea performed partial transverse colectomy, partial small bowel resection, drainage of multiple abscesses and creation of a colostomy and mucous fistula -Pt is doing well post-operatively with some stoma output indicating resolution of post-op ileus. -No abdominal discomfort, tolerating full liquids. Advance diet per surgery. -Antibiotic coverage changed by ID to once daily ertapenem for 21 days. PICC placed yesterday. -Per general surgery for pain control, wound care, fluid management, anticoagulation and activities -Monitor H&H, continue incentive spirometry, PT/OT Systolic murmur heard on exam: not in record as having this prior. TTE reveals mild aortic stenosis. Reviewed results with patient. Dilutional anemia in post-op setting-H/H stable. No transfusion needed at this time. HTN: -Normotensive -Continue home lisinopril/hctz -Monitor Hypokalemia: declining PO potassium. Advanced diet. IV replacement as patient refusing PO. Will recheck in am. H/o migraines: -Stable -Fioricet PRN DVT Ppx: Lovenox SQ Full Code Dispo: Per general surgery Jeni Harkins DO [facility] Hospitalist Current Inpatient Medications: Current Inpatient Medications Medications (Trade) Dose Ordered Sig/King Route Start Time Stop Time Status Last Admin Dose Admin Hydromorphone HCl (Dilaudid Inj) 0.5 mg Q3H PRN IV 10/24/17 20:15 11/07/17 20:14 10/27/17 05:12 0.5 MG Hydromorphone HCl (Dilaudid Inj) 1 mg Q3H PRN IV 10/24/17 20:15 11/07/17 20:14 10/27/17 11:23 1 MG Ondansetron HCl (Zofran Inj) 4 mg Q6H PRN IV 10/24/17 20:15 11/23/17 20:14 10/26/17 15:31 4 MG Enoxaparin Sodium (Lovenox Inj) 40 mg DAILY SQ 10/27/17 09:00 11/26/17 08:59 10/31/17 11:50 40 MG Acetaminophen/ Butalbital/ Caffeine (Fioricet Tab) 1 tab Q4 PRN PO 10/27/17 15:15 11/26/17 15:14 HCTZ/Lisinopril (Prinzide 20-12.5MG Tab) 0.5 tab QPM PO 10/28/17 21:00 11/26/17 20:59 10/30/17 21:35 0.5 TAB Ertapenem 1 gm/ Sodium Chloride 50 ml @ 120 mls/hr Q24H IV 10/29/17 12:00 11/08/17 11:59 10/31/17 13:11 120 MLS/HR Acetaminophen/ Hydrocodone Bitart ([place] 10/325 Tab) 1 tab Q4H PRN PO 10/30/17 11:00 11/13/17 10:59 10/31/17 11:49 1 TAB Acetaminophen (Tylenol Tab) 650 mg Q6H PRN PO 10/30/17 10:15 11/29/17 10:14 Heparin Sodium (Porcine) (Heparin 10 Unit/ ml 5 ml Flush) 5 ml PRN PRN FLUSH 10/31/17 05:30 11/30/17 05:29 10/31/17 05:49 5 ML
[2017-10-31 21:00] VITALS: BP 130/79; PULSE 98
[2017-10-31] MEDS: LISINOPRIL/HCTZ 20/12.5MG TAB PO SCH (21:02)
[2017-10-31 23:05] VITALS: BP 128/79; PULSE 99; TEMP 37; O2SAT 98
[2017-11-01] MEDS: HYDROCODONE/ACETAMI 10/325 TAB PO PRN ×5 (03:05→21:06)
[2017-11-01 07:27] VITALS: BP 128/80; PULSE 93; TEMP 36.7; O2SAT 97
[2017-11-01] MEDS: ENOXAPARIN 40 MG/0.4 ML SYR SQ SCH (08:03)
--- NOTE | 2017-11-01 08:12 | Surgery Progress Note ---
Surgery Progress Note Date of Service Nov 01, 2017. Subjective + feeling well no new issues. tash diet. Objective Vital Signs: Date Time Temp Pulse Resp B/P (MAP) Pulse Ox O2 Delivery O2 Flow Rate FiO2 11/01/17 07:27 36.7 93 16 128/80 (96) 97 Room Air 10/31/17 23:05 37.0 99 16 128/79 (95) 98 Room Air 10/31/17 21:00 98 130/79 (96) 10/31/17 19:15 Room Air 10/31/17 15:42 36.6 98 17 131/78 (95) 98 Room Air General Appearance: no apparent distress Respiratory/Chest: no respiratory distress, no accessory muscle use Abdomen: non distended, soft, + pertinent finding (stoma's look good/ functioning. ) Incision(s): clean, dry, intact, no erythema Assessment & Plan 11/01/17 doing well PT/OT will likely need rehab...maybe ready as soon as tomorrow advance diet 10/29/17 doing as expected awaiting return of bowel function pt/ot Dr. Heller covering for weekend 10/27/17 doing well pt wishes to keep arnold one more day. will plan to remove tomorrow awaiting return of bowel fx PT/OT 10/25/17 doing better than predicted at this point ok to remove ngt and try sips continue antibiotics supportive care appreciate ICU help 10/29/17 doing as expected awaiting return of bowel function pt/ot Dr. Heller covering for weekend 10/27/17 doing well pt wishes to keep arnold one more day. will plan to remove tomorrow awaiting return of bowel fx PT/OT 10/25/17 doing better than predicted at this point ok to remove ngt and try sips continue antibiotics supportive care appreciate ICU help
[2017-11-01] MEDS: ERTAPENEM IV 1 GM in SODIUM CHLOR 0.9% AD-VAN 50ML 50 ML IV SCH (12:08)
[2017-11-01 15:05] VITALS: BP 123/77; PULSE 94; TEMP 36.6; O2SAT 97
--- NOTE | 2017-11-01 21:05 | Progress Note ---
Medicine Progress Note Date & Time of Visit: Nov 01, 2017 at 17:08. Subjective This is a 67 yo M with a PMH of HTN, migraines and GERD who presented to the ED with abdominal pain, distention and nausea on 10/24 and was found to have perforated diverticulitis with abscesses and is s/p emergency ex lap. Doing well today, tolerating PO, stoma output. Still hesitant to ambulate. Pain controlled with frequent narcotics. Objective Last 8 Hrs Date Time Temp Pulse Resp B/P (MAP) Pulse Ox O2 Delivery O2 Flow Rate FiO2 11/01/17 15:05 36.6 94 18 123/77 (92) 97 Room Air Physical Exam: GEN: WNWD, in no acute distress, alert and appropriate HEENT: NC/AT, normal sclerae, MMM CARDIO: reg rate, 3/6 LISBET heard LUNGS: CTA bilaterally, no crackles, rales or wheezes, good diaphragmatic excursion ABD: soft, nontender, non-distended, no rebound or guarding, colostomy bag in place-stool in bag. +BS EXTREMITY: RP and DP palpable 2+ bilat, no LE swelling or edema, extremities are warm and well-perfused NEURO: CN 2-12 grossly intact MUSC: 5/5 strength throughout, no gross focal deficits SKIN: warm and dry Assessment & Plan This is a 67 yo M with a PMH of HTN, migraines and GERD who presented to the ED with abdominal pain, distention and nausea on 10/24 and was found to have perforated diverticulitis with abscesses and is s/p emergency ex lap. Doing well today, tolerating PO, stoma output. Still hesitant to ambulate. Pain controlled with frequent narcotics. Perforated diverticulitis s/p ex lap on 10/24: -Dr Shea performed partial transverse colectomy, partial small bowel resection, drainage of multiple abscesses and creation of a colostomy and mucous fistula -Pt is doing well post-operatively with some stoma output indicating resolution of post-op ileus. -No abdominal discomfort, tolerating full liquids. Advance diet per surgery. -Antibiotic coverage changed by ID to once daily ertapenem for 21 days. PICC placed. -Per general surgery for pain control, wound care, fluid management, anticoagulation and activities -Monitor H&H, continue incentive spirometry, PT/OT Systolic murmur heard on exam: not in record as having this prior. TTE reveals mild aortic stenosis. Reviewed results with patient. Dilutional anemia in post-op setting-H/H stable. No transfusion needed at this time. HTN: -Normotensive -Continue home lisinopril/hctz -Monitor Hypokalemia:recheck after diet advancement and replacement. H/o migraines: -Stable -Fioricet PRN DVT Ppx: Lovenox SQ Full Code Dispo: Per general surgery Jeni Harkins DO [facility] Hospitalist Current Inpatient Medications: Current Inpatient Medications Medications (Trade) Dose Ordered Sig/King Route Start Time Stop Time Status Last Admin Dose Admin Hydromorphone HCl (Dilaudid Inj) 0.5 mg Q3H PRN IV 10/24/17 20:15 11/07/17 20:14 10/27/17 05:12 0.5 MG Hydromorphone HCl (Dilaudid Inj) 1 mg Q3H PRN IV 10/24/17 20:15 11/07/17 20:14 10/27/17 11:23 1 MG Ondansetron HCl (Zofran Inj) 4 mg Q6H PRN IV 10/24/17 20:15 11/23/17 20:14 10/26/17 15:31 4 MG Enoxaparin Sodium (Lovenox Inj) 40 mg DAILY SQ 10/27/17 09:00 11/26/17 08:59 11/01/17 08:03 40 MG Acetaminophen/ Butalbital/ Caffeine (Fioricet Tab) 1 tab Q4 PRN PO 10/27/17 15:15 11/26/17 15:14 HCTZ/Lisinopril (Prinzide 20-12.5MG Tab) 0.5 tab QPM PO 10/28/17 21:00 11/26/17 20:59 10/31/17 21:02 0.5 TAB Ertapenem 1 gm/ Sodium Chloride 50 ml @ 120 mls/hr Q24H IV 10/29/17 12:00 11/08/17 11:59 11/01/17 12:08 120 MLS/HR Acetaminophen/ Hydrocodone Bitart ([place] 10/325 Tab) 1 tab Q4H PRN PO 10/30/17 11:00 11/13/17 10:59 11/01/17 17:06 1 TAB Acetaminophen (Tylenol Tab) 650 mg Q6H PRN PO 10/30/17 10:15 11/29/17 10:14 Heparin Sodium (Porcine) (Heparin 10 Unit/ ml 5 ml Flush) 5 ml PRN PRN FLUSH 10/31/17 05:30 11/30/17 05:29 11/01/17 12:46 5 ML
[2017-11-01] MEDS: LISINOPRIL/HCTZ 20/12.5MG TAB PO SCH (22:29)
[2017-11-01 23:30] VITALS: BP 128/80; PULSE 89; TEMP 37; O2SAT 99
[2017-11-02] MEDS: HYDROCODONE/ACETAMI 10/325 TAB PO PRN ×6 (01:07→23:44)
[2017-11-02 06:01] LABS: HEMATOCRIT 25.2 % (42-52); HEMOGLOBIN 8.2 g/dL (14.0-18.0); MEAN CELL VOLUME 94.7 fL (80-100); MEAN CORPUSCULAR HEMOGLOBIN 30.8 pg (25-34); MEAN CORPUSCULAR HGB CONC 32.5 g/dl (32-36); MEAN PLATELET VOLUME 8.2 fL (7.4-10.4); PLATELET COUNT 273 K/uL (130-400); RED CELL DISTRIBUTION WIDTH SD 54.6 fL (36.4-46.3); WHITE BLOOD COUNT 6.82 K/uL (4.8-10.8)
[2017-11-02 06:30] LABS: CALCIUM 7.7 mg/dl (8.5-10.1); CREATININE 0.66 mg/dl (0.60-1.40); POTASSIUM 3.4 mmol/L (3.5-5.1)
[2017-11-02] MEDS ORDERED: ERTA1INJ IV (07:05)
[2017-11-02] MEDS ORDERED: HYDR-4079 PO (07:05)
--- NOTE | 2017-11-02 07:11 | Discharge Instructions ---
Discharge Instructions Date of Service Nov 02, 2017. Admission Reason for Admission: Diverticulitis Of Intestine With Perforation Discharge Discharge Diagnosis / Problem: resection transverse colon, partial small bowel resection Discharge Goals Goal(s): Improve function Activity Recommendations Activity Level: Assistance Required Therapies: Physical Therapy, Occupational Therapy Lifting Limitations: no more than 10 pounds Shower/Bathe: no limitations . Additional Information Patient informed of condition: Yes Advance Directives: No DNR: No Level of Care: Acute Rehab Communicable Disease: No Prognosis: Improving Instructions / Follow-Up Instructions / Follow-Up Dr. Shea in 2 weeks, call [phone] Should have CBC, PRP in 1 week while on Invanz Current Hospital Diet Patient's current hospital diet: Regular Diet Discharge Diet Recommended Diet: Regular Diet Procedures Procedures Performed: Exploratory Laparotomy, Drainage of Multiple Abdominal Abscesses, Partial Transverse Colectomy, Partial Small Bowel Resection, Creation of Colostomy and Mucous Fistula Pending Studies Studies pending at discharge: no Physician Orders On Transfer Dressing Changes: daily moist to dry packing change to incision until closed when mucus fistula (left abdomen) is no longer draining it can be covered with vasoline gauze and 4x4 IV Therapy: 10 days daily IV Invanz Medical Emergencies . Who to Call and When: Medical Emergencies: If at any time you feel your situation is an emergency, please call 911 immediately. . Non-Emergent Contact Non-Emergency issues call your: Surgeon Call Non-Emergent contact if: you have a fever, temperature is above 101.5, wound has increased drainage, wound has increased redness . . "Provider Documentation" section prepared by Francois Paredes. . Core Measure Problem Core Measures: None [place] Drug Monitoring Program Search Results: no issues identified
[2017-11-02 07:23] VITALS: BP 126/67; PULSE 95; TEMP 36.8; O2SAT 97
[2017-11-02] MEDS: ENOXAPARIN 40 MG/0.4 ML SYR SQ SCH (07:37)
--- NOTE | 2017-11-02 08:27 | Surgery Progress Note ---
Surgery Progress Note Date of Service Nov 02, 2017. Subjective + feeling well, + diet (regular but not eating much), No nausea Objective Vital Signs: Date Time Temp Pulse Resp B/P (MAP) Pulse Ox O2 Delivery O2 Flow Rate FiO2 11/02/17 07:23 36.8 95 18 126/67 (86) 97 Room Air 11/02/17 00:20 Room Air 11/01/17 23:30 37.0 89 18 128/80 (96) 99 Room Air 11/01/17 17:06 Room Air 11/01/17 15:05 36.6 94 18 123/77 (92) 97 Room Air Physical Exam: KARMA drainage (5 left, 10 right) Abdomen: non distended, soft Incision(s): drainage (lower) Laboratory Results: Results Past 24 Hours Test 11/02/17 05:31 Range/Units White Blood Count 6.82 4.8-10.8 K/uL Red Blood Count 2.66 4.7-6.1 M/uL Hemoglobin 8.2 14.0-18.0 g/dL Hematocrit 25.2 42-52 % Mean Corpuscular Volume 94.7 80-100 fL Mean Corpuscular Hemoglobin 30.8 25-34 pg Mean Corpuscular Hemoglobin Concent 32.5 32-36 g/dl RDW Standard Deviation 54.6 36.4-46.3 fL RDW Coefficient of Variation 16.0 11.5-14.5 % Platelet Count 273 130-400 K/uL Mean Platelet Volume 8.2 7.4-10.4 fL Sodium Level 137 136-145 mmol/L Potassium Level 3.4 3.5-5.1 mmol/L Chloride Level 103 98-107 mmol/L Carbon Dioxide Level 29 21-32 mmol/L Anion Gap 5.0 3-11 mmol/L Blood Urea Nitrogen 8 7-18 mg/dl Creatinine 0.66 0.60-1.40 mg/dl Est Creatinine Clear Calc Drug Dose 120.0 ml/min Estimated GFR () 115.1 Estimated GFR (Non- 99.3 BUN/Creatinine Ratio 12.8 10-20 Random Glucose 94 70-99 mg/dl Calcium Level 7.7 8.5-10.1 mg/dl Magnesium Level 1.6 1.8-2.4 mg/dl Assessment & Plan Exploratory Laparotomy, Drainage of Multiple Abdominal Abscesses, Partial Transverse Colectomy, Partial Small Bowel Resection, Creation of Colostomy and Mucous Fistula tolerating diet ambulating in room, he is concerned about going to [facility] increased drainage from incision, few adonay removed and packed with 4x4 [address] Dr[address] Shea before removing one or both drains
--- NOTE | 2017-11-02 10:55 | Progress Note ---
Medicine Progress Note Date & Time of Visit: Nov 02, 2017 at 10:40 . Subjective CC: Follow-up visit for perforated viscus and other problems. HPI: Doing well. No fever. No nausea or vomiting. Appropriate stool output via ostomies. Pain well-controlled. ROS: General- no fever, no chills Resp- no cough; no shortness of breath Cardiac- no chest pain, no edema GI- as noted above in HPI - no dysuria, no difficulty voiding . Objective Last 8 Hrs Date Time Temp Pulse Resp B/P (MAP) Pulse Ox O2 Delivery O2 Flow Rate FiO2 11/02/17 07:23 36.8 95 18 126/67 (86) 97 Room Air 11/02/17 07:15 Room Air Physical Exam: General- lying in bed; no distress Lungs- clear to auscultation; no respiratory distress Cardiovascular- RRR; II-III systolic murmur at base; no gallop; no JVD; trace pretibial and pedal edema Abdomen- bilateral ostomies, midline dressing, + bowel sounds, soft, nontender Extremities- no cyanosis; no calf tenderness Neuro- alert, oriented Skin- warm & dry . Laboratory Results: Last 24 Hours Test 11/02/17 05:31 White Blood Count 6.82 K/uL Red Blood Count 2.66 M/uL Hemoglobin 8.2 g/dL Hematocrit 25.2 % Mean Corpuscular Volume 94.7 fL Mean Corpuscular Hemoglobin 30.8 pg Mean Corpuscular Hemoglobin Concent 32.5 g/dl RDW Standard Deviation 54.6 fL RDW Coefficient of Variation 16.0 % Platelet Count 273 K/uL Mean Platelet Volume 8.2 fL Sodium Level 137 mmol/L Potassium Level 3.4 mmol/L Chloride Level 103 mmol/L Carbon Dioxide Level 29 mmol/L Anion Gap 5.0 mmol/L Blood Urea Nitrogen 8 mg/dl Creatinine 0.66 mg/dl Est Creatinine Clear Calc Drug Dose 120.0 ml/min Estimated GFR () 115.1 Estimated GFR (Non- 99.3 BUN/Creatinine Ratio 12.8 Random Glucose 94 mg/dl Calcium Level 7.7 mg/dl Magnesium Level 1.6 mg/dl Assessment & Plan PERFORATED VISCUS / S/P LAPAROTOMY POD # 8. Receiving IV ertapenem x 21 days per ID recommendations. Continue incentive spirometry. AORTIC STENOSIS Systolic murmur noted on exam. TTE demonstrated mild aortic stenosis. Annual echocardiograms recommended, or sooner if symptomatic. HYPERTENSION Hemodynamically stable. Continue lisinopril / HCTZ. HYPOKALEMIA K as low as 3.2. K today 3.4. Replace. Follow. ANEMIA Hgb 14.6 at time of admission, fell as low as 7.8. Hgb this morning 8.2. Anemia probably multifactorial- hemodilution, surgical blood loss, infection, etc. No need for transfusion at this time per guidelines. COAGULOPATHY INR 1.5 - 1.8. Not on warfarin therapy. No known history of hepatic disease. Coagulopathy may be due to malnutrition. Vitamin K today. Follow. VTE PROPHYLAXIS Receiving enoxaparin. Ambulate. DISPOSITION Transfer to [facility] for inpatient rehab anticipated. Family Medicine follow-up with Dr. Spann. Thank you for this consultation. We will follow the patient with you during their hospital stay. You can reach a member of the [facility] Medicine Team 26/04 via pager @ [phone]. You can reach me via cell @ [phone]. . Current Inpatient Medications: Current Inpatient Medications Medications (Trade) Dose Ordered Sig/King Route Start Time Stop Time Status Last Admin Dose Admin Hydromorphone HCl (Dilaudid Inj) 0.5 mg Q3H PRN IV 10/24/17 20:15 11/07/17 20:14 10/27/17 05:12 0.5 MG Hydromorphone HCl (Dilaudid Inj) 1 mg Q3H PRN IV 10/24/17 20:15 11/07/17 20:14 10/27/17 11:23 1 MG Ondansetron HCl (Zofran Inj) 4 mg Q6H PRN IV 10/24/17 20:15 11/23/17 20:14 10/26/17 15:31 4 MG Enoxaparin Sodium (Lovenox Inj) 40 mg DAILY SQ 10/27/17 09:00 11/26/17 08:59 11/02/17 07:37 40 MG Acetaminophen/ Butalbital/ Caffeine (Fioricet Tab) 1 tab Q4 PRN PO 10/27/17 15:15 11/26/17 15:14 HCTZ/Lisinopril (Prinzide 20-12.5MG Tab) 0.5 tab QPM PO 10/28/17 21:00 11/26/17 20:59 11/01/17 22:29 0.5 TAB Ertapenem 1 gm/ Sodium Chloride 50 ml @ 120 mls/hr Q24H IV 10/29/17 12:00 11/08/17 11:59 11/01/17 12:08 120 MLS/HR Acetaminophen/ Hydrocodone Bitart ([place] 10/325 Tab) 1 tab Q4H PRN PO 10/30/17 11:00 11/13/17 10:59 11/02/17 09:31 1 TAB Acetaminophen (Tylenol Tab) 650 mg Q6H PRN PO 10/30/17 10:15 11/29/17 10:14 Heparin Sodium (Porcine) (Heparin 10 Unit/ ml 5 ml Flush) 5 ml PRN PRN FLUSH 10/31/17 05:30 11/30/17 05:29 11/02/17 05:29 5 ML
--- NOTE | 2017-11-02 10:56 | Discharge Summary ---
Discharge Summary Date of Service Nov 02, 2017. Admission Date/Reason Oct 24, 2017 at 20:27 Diverticulitis Of Intestine With Perforation. Discharge Date/Disposition Nov 03, 2017 Rehab Diagnosis Principal Diagnosis: 1. Perforated Colon, Multiple Abdominal Abscesses; ischemic small bowel 2. brief respiratory failure 3. peritonitis 4. Post-operative anemia (blood loss + dilutional) Secondary Diagnoses/Problems: 1. hypertension. 2. history of peptic ulcer disease. 3. migraines Procedure(s) Performed Exploratory Laparotomy, Drainage of Multiple Abdominal Abscesses, Partial Transverse Colectomy, Partial Small Bowel Resection, Creation of Colostomy and Mucous Fistula Consultations 1. [facility] Serging 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 2. [facility] Hospitalist 3. Infectious Disease Medication Reconciliation New Medications: Ertapenem Sodium (Invanz) 1 Gm Inj 1 GM IV DAILY for 10 Days, VIAL Hydrocodone/Acetaminophen 10MG/325MG (Ravalli 10MG/325MG) Tab 1 TAB PO Q4H PRN for Pain, #20 TAB PRN PAIN Continued Medications: Grjmolvjtu-Dqegvksvrqtvy-Zwbfs (Fioricet) 1 Cap Cap 1-2 TABS PO Q4 PRN for Migraine MAXIMUM 6 TABLETS IN 24 HOURS Lisinopril & Hydrochlorothiazi (Zestoretic 20-12.5 mg) 1 Tab Tab 1 TAB PO QPM Referrals Follow up Referrals: Surgery Referral - Within 2 Weeks with Dashawn Shea D.O. Admission Physical Exam As per Admitting History & Physical. Hospital Course 67 y/o male presented to ED with several weeks of flu like symptoms with increasing abdominal pain and distention. CT showed diverticulitis with pneumoperitoneum and 14 cm abscess. He was take emergently to the OR that evening for exploratory Laparotomy, drainage of multiple abdominal abscesses, partial transverse colectomy, partial small bowel resection, creation of colostomy and mucous fistula. He was transferred to ICU post-op and remained intubated overnight. He was extubated on POD 1 and progressed well throughout admission. IV Zosyn, Vanco and Diflucan were continued for several days and later changed to IV Invanz. His white count normalized, he was transferred to the surgical floor on POD 3. Tolerated advancing diet once bowels were moving POD 6. Was making progress with therapy, arrangements were made for rehab. Had moderate anemia but did not require transfusion. H&H stable at 8 & 25. Lovenox was used for DVT prophylaxis. Discharge Instructions Please refer to the electronic Patient Visit Report (Discharge Instructions) for additional information.
[2017-11-02] MEDS: ERTAPENEM IV 1 GM in SODIUM CHLOR 0.9% AD-VAN 50ML 50 ML IV SCH (12:26)
[2017-11-02] MEDS ORDERED: POTASSIUM CHLORIDE 20 MEQ TABCR PO ONE (13:00)
[2017-11-02] MEDS ORDERED: PHYTONADIONE 5 MG TAB PO ONE (13:00)
[2017-11-02 15:30] VITALS: O2SAT 97
[2017-11-02 16:45] VITALS: BP 124/74; PULSE 100; TEMP 36.4; O2SAT 97
[2017-11-02] MEDS: LISINOPRIL/HCTZ 20/12.5MG TAB PO SCH (20:58)
[2017-11-02 23:12] VITALS: BP 133/77; PULSE 90; TEMP 36.7; O2SAT 95
[2017-11-03] MEDS: HYDROCODONE/ACETAMI 10/325 TAB PO PRN ×3 (04:24→13:00)
[2017-11-03] MEDS: ENOXAPARIN 40 MG/0.4 ML SYR SQ SCH (08:21)
[2017-11-03 08:25] VITALS: BP 122/74; PULSE 90; TEMP 36.7; O2SAT 98
[2017-11-03 08:40] VITALS: O2SAT 98
[2017-11-03 10:02] LABS: CALCIUM 8.2 mg/dl (8.5-10.1); CREATININE 0.71 mg/dl (0.60-1.40); POTASSIUM 3.7 mmol/L (3.5-5.1)
[2017-11-03 11:09] VITALS: BP 122/74; PULSE 90; TEMP 36.7; O2SAT 98
[2017-11-03] MEDS: ERTAPENEM IV 1 GM in SODIUM CHLOR 0.9% AD-VAN 50ML 50 ML IV SCH (11:36)
--- NOTE | 2017-11-03 15:20 | Surgery Progress Note ---
Surgery Progress Note Date of Service Nov 03, 2017. Subjective bed not available yesterday for rehab, doing well today Objective Vital Signs: Date Time Temp Pulse Resp B/P (MAP) Pulse Ox O2 Delivery O2 Flow Rate FiO2 11/03/17 11:09 36.7 90 20 98 Room Air 11/03/17 08:40 98 Room Air 11/03/17 08:25 36.7 90 20 122/74 (90) 98 Room Air 11/03/17 07:15 Room Air 11/02/17 23:45 Room Air 11/02/17 23:12 36.7 90 16 133/77 (95) 95 Room Air 11/02/17 16:45 36.4 100 18 124/74 (91) 97 Room Air 11/02/17 15:30 97 Room Air Abdomen: soft Incision(s): drainage (from 4x4 wick placed in incision) Laboratory Results: Results Past 24 Hours Test 11/03/17 08:18 11/03/17 09:25 Range/Units Bedside Glucose 103 70-99 mg/dl Prothrombin Time 10.4 9.0-12.0 SECONDS Prothromb Time International Ratio 1.0 0.9-1.1 Sodium Level 137 136-145 mmol/L Potassium Level 3.7 3.5-5.1 mmol/L Chloride Level 103 98-107 mmol/L Carbon Dioxide Level 26 21-32 mmol/L Anion Gap 8.0 3-11 mmol/L Blood Urea Nitrogen 9 7-18 mg/dl Creatinine 0.71 0.60-1.40 mg/dl Est Creatinine Clear Calc Drug Dose 111.5 ml/min Estimated GFR () 111.7 Estimated GFR (Non- 96.4 BUN/Creatinine Ratio 12.5 10-20 Random Glucose 122 70-99 mg/dl Calcium Level 8.2 8.5-10.1 mg/dl Magnesium Level 1.7 1.8-2.4 mg/dl Assessment & Plan Exploratory Laparotomy, Drainage of Multiple Abdominal Abscesses, Partial Transverse Colectomy, Partial Small Bowel Resection, Creation of Colostomy and Mucous Fistula wound packing changed discharge to [facility]
== END 2017-11-03 13:00 | DRG 329 ==
LOC: EDBD 14:19 → C.EDC 14:19 → C.MSICU 20:27 → ENRESERV 10-27 08:17 → C.MSW 10-27 10:39
PROVIDERS: ADMIT Surgery; ATTEND Surgery
PROC: 0D1N0Z4 Bypass Sigmoid Colon to Cutaneous, Open Approach (ICD-10-PCS; principal; 2017-10-24 16:30)
PROC: 0DBL0ZZ Excision of Transverse Colon, Open Approach (ICD-10-PCS; principal; 2017-10-24 16:30)
PROC: 0DB80ZZ Excision of Small Intestine, Open Approach (ICD-10-PCS; principal; 2017-10-24 16:30)
PROC: 5A1935Z Respiratory Ventilation, Less than 24 Consecutive Hours (ICD-10-PCS; 2017-10-24 16:30)
DX: K57.20 Diverticulitis of large intestine with perforation and abscess without bleeding (principal); K55.019 Acute (reversible) ischemia of small intestine, extent unspecified; D62 Acute posthemorrhagic anemia; J96.90 Respiratory failure, unspecified, unspecified whether with hypoxia or hypercapnia; E46 Unspecified protein-calorie malnutrition; I11.0 Hypertensive heart disease with heart failure; K30 Functional dyspepsia; G43.909 Migraine, unspecified, not intractable, without status migrainosus; B95.5 Unspecified streptococcus as the cause of diseases classified elsewhere; B96.20 Unspecified Escherichia coli [E. coli] as the cause of diseases classified elsewhere; I50.9 Heart failure, unspecified; K21.9 Gastro-esophageal reflux disease without esophagitis; E87.6 Hypokalemia; I35.0 Nonrheumatic aortic (valve) stenosis; R79.1 Abnormal coagulation profile; Z87.891 Personal history of nicotine dependence

== ENCOUNTER 2018-01-13 07:22 | Inpatient (IN) | payer OTHER ==
[2018-01-06 14:29] VITALS: BMI 24.0
--- NOTE | 2018-01-06 15:11 | PAT Medication Instructions ---
Service Date Jan 06, 2018. Current Home Medication List Baclofen (Lioresal), 10 MG PO TID PRN for Pain Iddtbkfxwk-Nyqufppdjmdou-Twfts (Fioricet), 1-2 TABS PO Q4 PRN for Migraine Ferrous Sulfate (Kp Ferrous Sulfate), 1 TAB PO QDD Fluticasone Furoate (Flonase Sensimist), 1 SPRAY NA HS PRN for Nasal Congestion Medication Instructions For Your Scheduled Surgery - Hold the following medications the morning of surgery: Baclofen (Lioresal), 10 MG PO TID PRN for Pain Teoyhsvlma-Urwszsctuqqck-Llqyi (Fioricet), 1-2 TABS PO Q4 PRN for Migraine - Take the following medications the morning of surgery with a sip of water: Fluticasone Furoate (Flonase Sensimist), 1 SPRAY NA HS PRN for Nasal Congestion (if needed) - Take the following medications as scheduled the night before surgery: Baclofen (Lioresal), 10 MG PO TID PRN for Pain (if needed) Csrxtzltdf-Rawbymsqwayqx-Ywvbx (Fioricet), 1-2 TABS PO Q4 PRN for Migraine (if needed) Ferrous Sulfate (Kp Ferrous Sulfate), 1 TAB PO QDD Fluticasone Furoate (Flonase Sensimist), 1 SPRAY NA HS PRN for Nasal Congestion (if needed) If you have any questions please call us at [phone] or [phone] or [phone]
[2018-01-06 16:07] LABS: BASO % 0.4 %; BASO ABS # 0.02 K/uL (0-0.2); EOS % 5.8 %; HEMATOCRIT 39.5 % (42-52); HEMOGLOBIN 12.7 g/dL (14.0-18.0); IG# 0.01 K/uL (0.00-0.02); LYMPH % 38.2 %; LYMPH ABS # 1.98 K/uL (1.2-3.4); MEAN CELL VOLUME 88.4 fL (80-100); MEAN CORPUSCULAR HEMOGLOBIN 28.4 pg (25-34); MEAN CORPUSCULAR HGB CONC 32.2 g/dl (32-36); MEAN PLATELET VOLUME 8.8 fL (7.4-10.4); MONO % 8.9 %; MONO ABS # 0.46 K/uL (0.11-0.59); NEUT % 46.5 %; NEUT ABS # 2.42 K/uL (1.4-6.5); PLATELET COUNT 217 K/uL (130-400); RED CELL DISTRIBUTION WIDTH CV 17.3 % (11.5-14.5); RED CELL DISTRIBUTION WIDTH SD 56.7 fL (36.4-46.3); WHITE BLOOD COUNT 5.19 K/uL (4.8-10.8)
[2018-01-06 16:14] LABS: CALCIUM 9.3 mg/dl (8.5-10.1); CREATININE 0.81 mg/dl (0.60-1.40); POTASSIUM 4.9 mmol/L (3.5-5.1)
[2018-01-13] VITALS (8 sets, daily range): BP systolic 98–151; BP diastolic 57–78; PULSE 93–109; TEMP 36.3–37.1; O2SAT 96–100; Ht 172.7 cm; Wt 73.3 kg
[~2018-01-13] VITALS: Ht 172.7 cm; Wt 73.3 kg
[~2018-01-13 07:22] MED LIST changes: +ACETAMINOPHEN 1000 MG/100 ML IV IV ONE; +ATROPINE SULFATE 0.1 MG/ML 5ML SYR IV PRN; +BACL10TA PO; +BUTA1CAP17 PO; +CEFAZOLIN 2000MG IV PUSH 15 ML IV SCH; +EpHEDrine SULFATE INJ 50 MG/ML AMP IV PRN; +FERR1TAB13 PO; +FLUMAZENIL 0.1 MG/1 ML 10 ML VIAL IV PRN; +FLUT27.53; +HEPARIN SOD 5000 UNIT/0.5 ML CARP SQ SCH; +HYDROmorphone INJ 1 MG/ML SYR IV PRN; +LABETALOL HCL IV 5 MG/ML 20ML IV PRN; +LACTATED RINGER'S 1000ML 1,000 ML IV SCH; +LACTATED RINGER'S 1000ML 500 ML IV SCH; +MEPERIDINE HCL 25 MG/ML CARP IV PRN; +MoRPHine SULFATE 10 MG/ML CARP/VIAL IV PRN; +NALOXONE HCL 0.4 MG/1 ML VIAL/CARP IV PRN; +ONDANSETRON INJ 2 MG/ML 2 ML VIAL IV PRN; -PANT40TA PO; +PHENYLEPHRINE 100MCG/ML 5ML SYR IV PRN; -SUCR1TAB PO
[2018-01-13] MEDS ORDERED: LIDOCAINE HCL 2% 2 ML VIAL (20MG/ML) ONE (07:36)
[2018-01-13] MEDS ORDERED: PROPOFOL IV EMULSION 10 MG/ML 20 ML VIAL IV ONE (07:36)
[2018-01-13] MEDS ORDERED: SODIUM CHLORIDE 0.9% INJ 10 ML VIAL ONE (07:36)
[2018-01-13] MEDS ORDERED: DEXAMETHASONE SOD INJ 4 MG/ML VIAL ONE (07:36)
[2018-01-13] MEDS ORDERED: MIDAZOLAM HCL 1 MG/ML 2ML VIAL ONE (07:36)
[2018-01-13] MEDS ORDERED: ONDANSETRON INJ 2 MG/ML 2 ML VIAL ONE (07:36)
[2018-01-13] MEDS ORDERED: FENTANYL CITRATE INJ 50 MCG/1 ML 2 ML VIAL ONE (07:36)
[2018-01-13] MEDS ORDERED: HYDROmorphone INJ 2 MG/ML SYR/VIAL ONE (07:37)
[2018-01-13] MEDS ORDERED: BUPIVACAINE/EPINEPHRINE 0.5% MPF 1:200,000 30 ML VIAL ONE (08:51)
[2018-01-13] MEDS ORDERED: ALBUMIN HUMAN 5% 12.5 GM/250 ML VIAL IV ONE (09:21)
--- NOTE | 2018-01-13 11:51 | [facility] Post Operative Brief Note ---
Immediate Operative Summary Operative Date Jan 13, 2018. Pre-Operative Diagnosis S/P TRANSVERSE COLECTOMY WITH PARTIAL SMALL BOWEL RESECTION Post-Operative Diagnosis SAME PREOP Procedure(s) Performed SUBTOTAL COLECTOMY, TAKE DOWN OF COLCOSTOMY, ENTEROLYSIS Surgeon DR. LAM Resolution Rep Surgeon(s) Amelia THAKUR Estimated Blood Loss 30ML Findings Consistent with Post-Op Diagnosis Specimens A. CECUM AND RIGHT COLON B. DISTAL TRANSVERSE/ PROXIMAL LEFT COLON Anesthesia Type General Complication(s) none
[2018-01-13] MEDS: SODIUM CHLORIDE 0.9% 1000ML 1,000 ML IV SCH (12:02)
[2018-01-13] MEDS ORDERED: HYDROmorphone INJ 0.5 MG/0.5 ML SYR ONE (12:03)
[2018-01-13] MEDS ORDERED: NALOXONE HCL 0.4 MG/1 ML VIAL/CARP IV PRN (12:15)
[2018-01-13] MEDS ORDERED: ONDANSETRON INJ 2 MG/ML 2 ML VIAL IV PRN (12:15)
[2018-01-13] MEDS ORDERED: ACETAMINOPHEN IV 100 ML IV PRN (12:15)
[2018-01-13] MEDS ORDERED: BACLOFEN 10 MG TAB PO PRN (12:15)
--- NOTE | 2018-01-13 12:17 | [facility] Operative Report ---
Operative Report Operative Date Jan 13, 2018. Pre-Operative Diagnosis S/P TRANSVERSE COLECTOMY WITH PARTIAL SMALL BOWEL RESECTION Post-Operative Diagnosis SAME PREOP Procedure(s) Performed SUBTOTAL COLECTOMY, TAKE DOWN OF COLCOSTOMY, ENTEROLYSIS Surgeon DR. LAM Traffic Workforce Representative Surgeon(s) Amelia THAKUR Estimated Blood Loss 30ML Specimens A. CECUM AND RIGHT COLON B. DISTAL TRANSVERSE/ PROXIMAL LEFT COLON Anesthesia Type General Complication(s) none Description of Procedure After informed consent was obtained the patient was taken to the operating room and placed in supine position. After successful intubation a Lynn catheter was placed. The mucous fistula as well as the colostomy stomas were both closed using 3-0 silk in simple interrupted fashion. We then sterilely prepped and draped the entire abdomen in usual fashion. I began by making the ellipse with a 10 blade scalpel around his previous scar in the midline. We removed the skin and widened scar using electrocautery. We then carried this incision down through the fascia. I was able to elevate the peritoneum with Shayna clamps and incised using Metzenbaum scissor. A finger sweep was used to take down adhesions. I then extended this incision to both poles again using electrocautery. Once in the abdomen there was some scar tissue that we had to take down throughout the case. Overall the abdomen was not terrible considering his previous abdominal catastrophe. We were able to free up the small bowel as well as large bowel. I began by taking down his right upper quadrant end colostomy. We used a blade to come around the skin of the stoma itself and carried this down through the soft tissue using electrocautery. Eventually using blunt dissection as well as electrocautery we were able to deliver the right colon itself through the fascia and into the abdominal cavity. Because of the previous area of resection which was primarily the transverse colon I did not feel it would be vazquez to try and anastomose the right colon to the remaining splenic flexure. I therefore transected the terminal ileum using a LEONEL brown cartridge stapler. We freed up the white line of Toldt using electrocautery. I then used the LigaSure device to take down the mesentery of the remaining right colon which include the cecum and proximal right colon. Eventually I was able to take this completely down and pass it off to be sent to pathology. In similar fashion we took down the mucous fistula which was in the left upper quadrant. Again we made an ellipse around the skin and used cautery to carry this down to the fascia. We were able to deliver this in the abdominal cavity as well. This is where we encountered an unexpected firm area of colon essentially in the proximal left colon. It was very firm and attached to the retroperitoneum. I freed up the splenic flexure in its entirety using blunt finger fractionation and small amounts of electrocautery as well as LigaSure device. We are able to take down the mesentery starting at the distal transverse colon and came around the splenic flexure until he had this completely freed up. Because of the firmness it was unclear to me whether this was some fat necrosis or whether there was some other pathology in the proximal left colon. Eventually I was able to free all of this up and decided to transect the left colon distal to this area. We did this with a black cartridge stapler with reinforcement strips. We then use a LigaSure to take down the remainder of the mesentery and sent this as a second specimen which included the distal transverse colon and splenic flexure and a portion of the proximal left colon. This only allowed him some left colon sigmoid colon and rectum remaining. The blood supply looked good it was nice and pink. We then brought over the terminal ileum and performed a side to side anastomosis with a purple cartridge stapler. For some reason all of the remaining left colon was somewhat thickened the whole way down to the rectum. I decide to widen the anastomosis by taking a second firing of the purple stapler to make sure we had a large mouth anastomosis as after the first firing it was still a little bit tight and barely incorporated my pinky finger. Once we did the second firing I then closed the common enterotomy in 2 layers using 3 -0 Monocryl in running fashion for serosal and mucosal layers. I then used 3-0 silk as an external serosal layer in simple interrupted fashion. I also used 3- 0 silk as a crotch stitch. I did close the mesenteric defect using 2-0 Vicryl in simple interrupted fashion. We also covered all the staple lines as well as the anastomosis with some Tisseel sealant for additional reinforcement. The anastomosis appear to be patent. There was no evidence of ischemia. Prior to closing the enterotomy I did palpate the anastomosis with my index finger it appear to be intact and widely open. I did change my glove following this. We then thoroughly irrigated the wound. We looked around the abdomen and saw no other gross abnormalities. We closed the fascia of both stoma sites using 0 PDS in simple interrupted fashion. We placed a 10 flat Vincent-Dior drain through a separate stab incision in the left paracolic gutter. We then closed the midline fascia using oh loop PDS starting in both poles and running them and securing them together in the midline. Soft tissue was irrigated and we closed the skin using skin adonay. Silver dressing was applied. The drain was secured to skin using 2-0 silk. Patient was then awakened extubated transferred to recovery in stable condition My physician's assistants were present throughout the entire case. They helped prep the patient. They helped with wound retraction throughout the case. He also helped with wound closure and dressing placement. I attest to the content of the Intraoperative Record and any orders documented therein. Any exceptions are noted below.
--- NOTE | 2018-01-13 12:40 | Anesthesiology Progress Note ---
Anesthesia Post Op Note Date & Time Jan 13, 2018 at 12:39 Vital Signs Pain Intensity: 4 Vital Signs Past 12 Hours Date Time Temp Pulse Resp B/P (MAP) Pulse Ox O2 Delivery O2 Flow Rate FiO2 01/13/18 12:35 91 24 125/62 100 Nasal Cannula 2 01/13/18 12:25 91 28 133/65 100 Nasal Cannula 4 01/13/18 12:15 88 17 129/66 100 Oxymask 10 01/13/18 12:05 88 24 117/69 100 Oxymask 10 01/13/18 11:59 36.2 92 17 121/80 100 Oxymask 10 01/13/18 07:44 36.8 105 18 109/71 96 Room Air Notes Mental Status: alert / awake / arousable, participated in evaluation Pt Amnestic to Procedure: Yes Nausea / Vomiting: adequately controlled Pain: adequately controlled, improving with treatment Airway Patency, RR, SpO2: stable & adequate BP & HR: stable & adequate Hydration State: stable & adequate Anesthetic Complications: no major complications apparent
[2018-01-13] MEDS ORDERED: HYDROmorphone HCL 0.5MG/ML 50 ML CASSETTE ONE (13:12)
[2018-01-13] MEDS: LACTATED RINGER'S 1000ML 1,000 ML IV SCH ×2 (14:00→20:16)
[2018-01-13] MEDS: AMPICILLIN/SULBACTAM SOD INJ 3,000 MG in SODIUM CHLORIDE 0.9% 100ML 100 ML IV SCH ×2 (14:39→21:13)
[2018-01-13] MEDS: ACETAMINOPHEN IV 1,000 MG in EMPTY BAG 0 ML IV SCH (16:00)
[2018-01-13] MEDS ORDERED: LISI-787 PO (16:28)
[2018-01-13] MEDS ORDERED: MAGN500T4 PO (16:28)
--- NOTE | 2018-01-13 16:41 | Medical Consult ---
Consultation Date of Consultation: Jan 13, 2018. Attending Physician: Dashawn Shea D.O. Reason for Consultation: Postoperative medical management History of Present Illness 67-year-old male who is status post colostomy takedown today by Dr. Shea. Per discharge summary from October 2017, "patient presented with abdominal pain and CT showed diverticulitis with pneumoperitoneum and 14 cm abscess. He was take emergently to the OR for exploratory Laparotomy, drainage of multiple abdominal abscesses, partial transverse colectomy, partial small bowel resection , creation of colostomy and mucous fistula." Patient presented today for planned takedown of his colostomy. Postoperatively the patient is doing well. He reports his pain is well controlled with MANUFACTURER'S REPRESENTATIVE. He denies chest pain, palpitations, and shortness of breath. No nausea or vomiting. He has not passed any flatus yet. He denies lightheadedness and dizziness. Lynn catheter is in place draining clear yellow urine. Past Medical/Surgical History Medical Problems: (1) Diverticulitis of colon with perforation Status: Resolved (2) HTN (hypertension) Status: Chronic Surgical Problems: (1) Dilation of duodenum Permanent Comment: 2011 Status: Resolved (2) History of cataract surgery Status: Resolved (3) S/P exploratory laparotomy Permanent Comment: 10/24/17: partial transverse colectomy, partial small bowel resection, drainage of multiple abscesses and creation of a colostomy and mucous fistula Status: Resolved Family History FH: CAD (coronary artery disease) FATHER Social History Smoking Status: Never Smoker Alcohol Use: occasionally Allergies Coded Allergies: Shrimp (Verified Adverse Reaction, Unknown, GI SYMPTOMS, 10/24/17) Home Medications Magnesium (Magnesium Oxide (Mg Supplement) 500 Mg Tab 500 Mg PO DAILY Zestoretic 20MG/12.5MG (HCTZ/Lisinopril) Tab 0.5 Tab PO DAILY Kp Ferrous Sulfate (Ferrous Sulfate) 325 Mg Tab 1 Tab PO QDD 30 Days Flonase Sensimist (Fluticasone Furoate) 27.5 Mcg/Monitor Maria Elena 1 Monitor NA HS PRN Lioresal (Baclofen) 10 Mg Tab 10 Mg PO TID PRN Fioricet (Wfbwvbdwrv-Vtrltbfjzgbhr-Iyzvi) 1 Cap Cap 1-2 Tabs PO Q4 PRN MAXIMUM 6 TABLETS IN 24 HOURS Current Inpatient Medications Current Inpatient Medications Medications (Trade) Dose Ordered Sig/King Route Start Time Stop Time Status Last Admin Dose Admin Lactated Ringer's 1,000 ml @ 15 mls/hr Q24H IV 01/13/18 06:00 01/14/18 05:59 Heparin Sodium (Porcine) (Heparin Sq 5000 Unit/0.5ml) 5,000 unit TODAY@0600 SQ 01/13/18 06:00 01/13/18 18:00 01/13/18 08:24 5,000 UNIT Cefazolin Sodium 15 ml @ 3.75 mls/ min PREOP IV 01/13/18 06:00 01/13/18 18:00 01/13/18 09:04 3.75 MLS/MIN Lactated Ringer's 1,000 ml @ 150 mls/hr Q6H40M IV 01/13/18 12:02 02/12/18 12:01 01/13/18 14:00 150 MLS/HR Ondansetron HCl (Zofran Inj) 4 mg Q6H PRN IV 01/13/18 12:15 02/12/18 12:14 Enoxaparin Sodium (Lovenox Inj) 40 mg Q24H SQ 01/14/18 09:00 02/13/18 08:59 UNV Naloxone HCl (Narcan Inj) 0.1 mg Q5M PRN IV 01/13/18 12:15 02/12/18 12:14 Hydromorphone HCl (Dilaudid Kindergarten Assistant) 25 mg PRN PRN IV 01/13/18 12:15 01/27/18 12:14 Sodium Chloride 1,000 ml @ 15 mls/hr Q24H IV 01/13/18 12:02 02/12/18 12:01 Baclofen (Lioresal Tab) 10 mg TID PRN PO 01/13/18 12:15 02/12/18 12:14 Ampicillin Sodium/ Sulbactam Sodium 3000 mg/Sodium Chloride 108 ml @ 200 mls/hr Q6H IV 01/13/18 14:00 01/14/18 12:14 01/13/18 14:39 200 MLS/HR Acetaminophen 1000 mg/Empty Bag 100 ml @ 400 mls/hr Q8H IV 01/13/18 16:00 02/12/18 15:44 Review of Systems ROS per HPI, all other systems reviewed and negative Physical Exam Date Time Temp Pulse Resp B/P (MAP) Pulse Ox O2 Delivery O2 Flow Rate FiO2 01/13/18 15:36 36.4 104 18 107/70 (82) 99 Nasal Cannula 3.0 01/13/18 14:30 103 18 98/57 (71) 99 Nasal Cannula 2.0 01/13/18 14:00 101 18 98/58 (71) 100 Nasal Cannula 2.0 01/13/18 13:30 37.1 101 16 113/64 (80) 100 Nasal Cannula 2.0 01/13/18 13:30 Nasal Cannula 2.0 01/13/18 13:15 92 12 104/61 99 Nasal Cannula 2 01/13/18 13:05 36.7 86 18 95/55 100 Nasal Cannula 2 01/13/18 12:55 85 12 104/58 100 Nasal Cannula 2 01/13/18 12:45 93 16 113/60 100 Nasal Cannula 2 01/13/18 12:35 91 24 125/62 100 Nasal Cannula 2 01/13/18 12:25 91 28 133/65 100 Nasal Cannula 4 01/13/18 12:15 88 17 129/66 100 Oxymask 10 01/13/18 12:05 88 24 117/69 100 Oxymask 10 01/13/18 11:59 36.2 92 17 121/80 100 Oxymask 10 01/13/18 07:44 36.8 105 18 109/71 96 Room Air General Appearance: WD/WN, no apparent distress Head: normocephalic, atraumatic Eyes: normal inspection, EOMI, sclerae normal ENT: hearing grossly normal, + pertinent finding (Mucous membranes moist) Neck: supple, no JVD, trachea midline Respiratory/Chest: lungs clear, normal breath sounds, no respiratory distress Cardiovascular: regular rate, rhythm, no edema, normal peripheral pulses Abdomen/GI: normal bowel sounds, soft, + distended, + pertinent finding ( Surgical abdominal dressing in place, small amount of staining noted which has been outlined by nursing, KARMA in place draining serous sanguinous drainage) Genitourinary - Male: + pertinent finding (Lynn in place draining clear yellow urine) Extremities/Musculoskelatal: normal inspection, no calf tenderness, normal capillary refill Neurologic/Psych: no motor/sensory deficits, alert, normal mood/affect, oriented x 3 Skin: normal color, warm/dry Assessment & Plan S/P COLOSTOMY TAKEDOWN -POD #0 -Presented for planned colostomy takedown; colostomy was placed in October 2017 for complicated diverticulitis -On empiric Unasyn -Pain control with Dilaudid MANUFACTURER'S REPRESENTATIVE -Patient doing well, vital signs stable -EBL 30 cc -Management as per general surgery HYPERTENSION -Blood pressures intermittently low -We will place lisinopril/HCTZ on hold for now DVT PROPHYLAXIS -SQ Lovenox as per general surgery Thank you for this consultation. We will follow the patient with you during their hospital stay. You can reach a member of the [facility] Hospitalist Team 26/04 via pager @ [phone]. Attending addendum: The patient was seen and examined on the medical floor. He is status post reversal of colostomy. Complains some abdominal discomfort but no other symptoms Denies any nausea ,vomiting, cough, shortness of breath On examination No apparent distress Chest- clear to auscultation bilaterally Heart-S1-S2, 2/6 systolic murmur over precordium, Abdomen-status post surgery, bandaged, tender to palpate, bowel sounds sluggish Extremities- no edema Labs, imaging studies reviewed Medically stable Admitted with assessment and plan. Dr Vida Kasper
[2018-01-13] MEDS: HYDROmorphone HCL 0.5MG/ML 50 ML CASSETTE IV PRN (22:57)
[2018-01-14] MEDS: AMPICILLIN/SULBACTAM SOD INJ 3,000 MG in SODIUM CHLORIDE 0.9% 100ML 100 ML IV SCH ×2 (01:30→07:32)
[2018-01-14] MEDS: LACTATED RINGER'S 1000ML 1,000 ML IV SCH ×4 (01:30→23:56)
[2018-01-14 03:37] VITALS: BP 136/76; PULSE 98; TEMP 36.7; O2SAT 100
[2018-01-14 05:07] LABS: BASO % 0.1 %; BASO ABS # 0.01 K/uL (0-0.2); EOS % 0.1 %; EOS ABS # 0.01 K/uL (0-0.5); HEMATOCRIT 37.5 % (42-52); HEMOGLOBIN 12.2 g/dL (14.0-18.0); IG# 0.01 K/uL (0.00-0.02); LYMPH % 20.8 %; LYMPH ABS # 1.78 K/uL (1.2-3.4); MEAN CELL VOLUME 86.4 fL (80-100); MEAN CORPUSCULAR HEMOGLOBIN 28.1 pg (25-34); MEAN CORPUSCULAR HGB CONC 32.5 g/dl (32-36); MONO % 7.7 %; MONO ABS # 0.66 K/uL (0.11-0.59); NEUT % 71.2 %; NEUT ABS # 6.09 K/uL (1.4-6.5); PLATELET COUNT 159 K/uL (130-400); RED CELL DISTRIBUTION WIDTH CV 17.4 % (11.5-14.5); RED CELL DISTRIBUTION WIDTH SD 55.2 fL (36.4-46.3); WHITE BLOOD COUNT 8.56 K/uL (4.8-10.8)
[2018-01-14 05:24] LABS: INR 1.1 (0.9-1.1); PTT PATIENT 28.4 SECONDS (21.0-31.0)
[2018-01-14 05:31] LABS: CALCIUM 8.3 mg/dl (8.5-10.1); CREATININE 0.97 mg/dl (0.60-1.40); PHOSPHORUS 3.7 mg/dl (2.5-4.9); POTASSIUM 4.4 mmol/L (3.5-5.1)
[2018-01-14] MEDS: HYDROmorphone HCL 0.5MG/ML 50 ML CASSETTE IV PRN ×3 (06:54→23:21)
[2018-01-14 07:10] VITALS: BP 145/88; PULSE 103; TEMP 36.5; O2SAT 100
[2018-01-14] MEDS: ACETAMINOPHEN IV 1,000 MG in EMPTY BAG 0 ML IV SCH ×4 (07:30→23:56)
--- NOTE | 2018-01-14 07:53 | Surgery Progress Note ---
Surgery Progress Note Date of Service Jan 14, 2018. Subjective Post OP Day: 1 + feeling well, + pain controlled, No nausea Objective Vital Signs: Date Time Temp Pulse Resp B/P (MAP) Pulse Ox O2 Delivery O2 Flow Rate FiO2 01/14/18 07:10 36.5 103 18 145/88 (107) 100 Nasal Cannula 2.0 01/14/18 03:37 36.7 98 16 136/76 (96) 100 Nasal Cannula 2.0 01/13/18 23:50 Room Air 01/13/18 23:10 36.8 109 18 151/78 (102) 96 Room Air 01/13/18 18:57 36.3 93 18 125/75 (92) 100 Nasal Cannula 3.0 01/13/18 16:31 36.7 100 18 116/73 (87) 99 Nasal Cannula 3.0 01/13/18 16:00 Nasal Cannula 2.0 01/13/18 15:36 36.4 104 18 107/70 (82) 99 Nasal Cannula 3.0 01/13/18 14:30 103 18 98/57 (71) 99 Nasal Cannula 2.0 01/13/18 14:00 101 18 98/58 (71) 100 Nasal Cannula 2.0 01/13/18 13:30 37.1 101 16 113/64 (80) 100 Nasal Cannula 2.0 01/13/18 13:30 Nasal Cannula 2.0 01/13/18 13:15 92 12 104/61 99 Nasal Cannula 2 01/13/18 13:05 36.7 86 18 95/55 100 Nasal Cannula 2 01/13/18 12:55 85 12 104/58 100 Nasal Cannula 2 01/13/18 12:45 93 16 113/60 100 Nasal Cannula 2 01/13/18 12:35 91 24 125/62 100 Nasal Cannula 2 01/13/18 12:25 91 28 133/65 100 Nasal Cannula 4 01/13/18 12:15 88 17 129/66 100 Oxymask 10 01/13/18 12:05 88 24 117/69 100 Oxymask 10 01/13/18 11:59 36.2 92 17 121/80 100 Oxymask 10 Physical Exam: KARMA drainage (25), urine output (750) Abdomen: non distended, soft Incision(s): intact (dressing) Laboratory Results: Results Past 24 Hours Test 01/14/18 04:42 Range/Units White Blood Count 8.56 4.8-10.8 K/uL Red Blood Count 4.34 4.7-6.1 M/uL Hemoglobin 12.2 14.0-18.0 g/dL Hematocrit 37.5 42-52 % Mean Corpuscular Volume 86.4 80-100 fL Mean Corpuscular Hemoglobin 28.1 25-34 pg Mean Corpuscular Hemoglobin Concent 32.5 32-36 g/dl Platelet Count 159 130-400 K/uL Mean Platelet Volume 9.0 7.4-10.4 fL Neutrophils (%) (Auto) 71.2 % Lymphocytes (%) (Auto) 20.8 % Monocytes (%) (Auto) 7.7 % Eosinophils (%) (Auto) 0.1 % Basophils (%) (Auto) 0.1 % Neutrophils # (Auto) 6.09 1.4-6.5 K/uL Lymphocytes # (Auto) 1.78 1.2-3.4 K/uL Monocytes # (Auto) 0.66 0.11-0.59 K/uL Eosinophils # (Auto) 0.01 0-0.5 K/uL Basophils # (Auto) 0.01 0-0.2 K/uL RDW Standard Deviation 55.2 36.4-46.3 fL RDW Coefficient of Variation 17.4 11.5-14.5 % Immature Granulocyte % (Auto) 0.1 % Immature Granulocyte # (Auto) 0.01 0.00-0.02 K/uL Prothrombin Time 11.3 9.0-12.0 SECONDS Prothromb Time International Ratio 1.1 0.9-1.1 Activated Partial Thromboplast Time 28.4 21.0-31.0 SECONDS Partial Thromboplastin Ratio 1.1 Sodium Level 131 136-145 mmol/L Potassium Level 4.4 3.5-5.1 mmol/L Chloride Level 101 98-107 mmol/L Carbon Dioxide Level 20 21-32 mmol/L Anion Gap 10.0 3-11 mmol/L Blood Urea Nitrogen 14 7-18 mg/dl Creatinine 0.97 0.60-1.40 mg/dl Est Creatinine Clear Calc Drug Dose 70.5 ml/min Estimated GFR () 92.6 Estimated GFR (Non- 79.9 BUN/Creatinine Ratio 14.4 10-20 Random Glucose 92 70-99 mg/dl Calcium Level 8.3 8.5-10.1 mg/dl Phosphorus Level 3.7 2.5-4.9 mg/dl Magnesium Level 1.7 1.8-2.4 mg/dl Assessment & Plan s/p colostomy takedown, subtotal colectomy cont INDUSTRIAL SAFETY AND HEALTH TECHNICIAN cont arnold Lovenox to start today resume flonase, lisinopril
--- NOTE | 2018-01-14 07:59 | Anesthesiology Progress Note ---
Anesthesia Post Op Note Date & Time Jan 14, 2018 at 07:59 Vital Signs Pain Intensity: 5.0 Vital Signs Past 12 Hours Date Time Temp Pulse Resp B/P (MAP) Pulse Ox O2 Delivery O2 Flow Rate FiO2 01/14/18 07:10 36.5 103 18 145/88 (107) 100 Nasal Cannula 2.0 01/14/18 03:37 36.7 98 16 136/76 (96) 100 Nasal Cannula 2.0 01/13/18 23:50 Room Air 01/13/18 23:10 36.8 109 18 151/78 (102) 96 Room Air Notes Mental Status: alert / awake / arousable, participated in evaluation Pt Amnestic to Procedure: Yes Nausea / Vomiting: adequately controlled Pain: adequately controlled Airway Patency, RR, SpO2: stable & adequate BP & HR: stable & adequate Hydration State: stable & adequate Anesthetic Complications: no major complications apparent
[2018-01-14] MEDS ORDERED: FLUTICASONE PROPIONATE NA SPR 16 GM BTL PRN ×2 (08:00→15:45)
[2018-01-14] MEDS: ENOXAPARIN 40 MG/0.4 ML SYR SQ SCH (08:57)
[2018-01-14] MEDS ORDERED: LISINOPRIL 20 MG TAB PO SCH (09:00)
[2018-01-14] MEDS: SODIUM CHLORIDE 0.9% 1000ML 1,000 ML IV SCH (10:08)
--- NOTE | 2018-01-14 10:46 | Clinical Documentation Query ---
CLINICAL DOCUMENTATION QUERY Dr. PATTERSON, In your clinical opinion is this patient being managed for: ( x) Hyponatremia ( ) Not Agree ( ) Other explanation of clinical findings (Please Explain) ( ) Unable to determine (Please Define) ( ) Need to Discuss The medical record reflects the following clinical findings, treatment, and risk factors. Clinical Indicators:67 yo male presenting for takedown of his colostomy. Baseline Na 137, post op Na 131. KARMA drainage 295 cc thus far. Fluid balance +3L Treatment: IV fluids, monitor PRP's Risk Factors: surgery, IV fluids Please clarify and document your clinical opinion in the progress notes and discharge summary. Terms such as "probable", "suspected", "likely", "questionable", "possible", or "still to be ruled out" are acceptable. IF IN AGREEMENT, YOU MUST DOCUMENT ABOVE DIAGNOSTIC STATEMENT IN DAILY PROGRESS NOTES AND DISCHARGE SUMMARY. This document is not part of the patient's record Thank You, Alyssia Serrano, RN [phone]
[2018-01-14 12:29] VITALS: BP 100/66; PULSE 109; TEMP 36.7; O2SAT 96
[2018-01-14 14:46] VITALS: BP 98/62; PULSE 106; TEMP 36.9; O2SAT 96
--- NOTE | 2018-01-14 18:34 | Progress Note ---
Internal Med Progress Note Date of Service: Jan 14, 2018. Provider Documentation: SUBJECTIVE: SITTING COMFORTABLY ON THE CHAIR AFEBRILE NO NAUSEA PAIN UNDER CONTROL NO CHEST PAIN OR SOB NO COMPLAINTS OBJECTIVE: Vital Signs-as noted below Exam: General-alert and oriented. Not in distress ENT-normal hearing. Neck-No neck masses Lungs-CTA b/l no wheezing or crackles Heart-S1 and S2 heard regular rate and rhythm no murmurs Abdomen-soft Bowels sounds present sluggish dressing seen Extremities-no edema no erythema Neuro-alert and oriented moves extremities Lab data as noted below. 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 Management as per general surgery HYPERTENSION on lisinopril holding hctz will monitor Hyponatremia na 131 today on fluids f/u labs in am DVT PROPHYLAXIS SQ Lovenox as per general surgery DISPOSITION as per surgery Vital Signs: Date Time Temp Pulse Resp B/P (MAP) Pulse Ox O2 Delivery O2 Flow Rate FiO2 01/14/18 15:47 Room Air 01/14/18 14:46 36.9 106 18 98/62 (74) 96 Room Air 01/14/18 12:29 36.7 109 18 100/66 (77) 96 Room Air 01/14/18 07:30 Room Air 01/14/18 07:10 36.5 103 18 145/88 (107) 100 Nasal Cannula 2.0 01/14/18 03:37 36.7 98 16 136/76 (96) 100 Nasal Cannula 2.0 01/13/18 23:50 Room Air 01/13/18 23:10 36.8 109 18 151/78 (102) 96 Room Air 01/13/18 18:57 36.3 93 18 125/75 (92) 100 Nasal Cannula 3.0 Lab Results: Results Past 24 Hours Test 01/14/18 04:42 Range/Units White Blood Count 8.56 4.8-10.8 K/uL Red Blood Count 4.34 4.7-6.1 M/uL Hemoglobin 12.2 14.0-18.0 g/dL Hematocrit 37.5 42-52 % Mean Corpuscular Volume 86.4 80-100 fL Mean Corpuscular Hemoglobin 28.1 25-34 pg Mean Corpuscular Hemoglobin Concent 32.5 32-36 g/dl Platelet Count 159 130-400 K/uL Mean Platelet Volume 9.0 7.4-10.4 fL Neutrophils (%) (Auto) 71.2 % Lymphocytes (%) (Auto) 20.8 % Monocytes (%) (Auto) 7.7 % Eosinophils (%) (Auto) 0.1 % Basophils (%) (Auto) 0.1 % Neutrophils # (Auto) 6.09 1.4-6.5 K/uL Lymphocytes # (Auto) 1.78 1.2-3.4 K/uL Monocytes # (Auto) 0.66 0.11-0.59 K/uL Eosinophils # (Auto) 0.01 0-0.5 K/uL Basophils # (Auto) 0.01 0-0.2 K/uL RDW Standard Deviation 55.2 36.4-46.3 fL RDW Coefficient of Variation 17.4 11.5-14.5 % Immature Granulocyte % (Auto) 0.1 % Immature Granulocyte # (Auto) 0.01 0.00-0.02 K/uL Prothrombin Time 11.3 9.0-12.0 SECONDS Prothromb Time International Ratio 1.1 0.9-1.1 Activated Partial Thromboplast Time 28.4 21.0-31.0 SECONDS Partial Thromboplastin Ratio 1.1 Sodium Level 131 136-145 mmol/L Potassium Level 4.4 3.5-5.1 mmol/L Chloride Level 101 98-107 mmol/L Carbon Dioxide Level 20 21-32 mmol/L Anion Gap 10.0 3-11 mmol/L Blood Urea Nitrogen 14 7-18 mg/dl Creatinine 0.97 0.60-1.40 mg/dl Est Creatinine Clear Calc Drug Dose 70.5 ml/min Estimated GFR () 92.6 Estimated GFR (Non- 79.9 BUN/Creatinine Ratio 14.4 10-20 Random Glucose 92 70-99 mg/dl Calcium Level 8.3 8.5-10.1 mg/dl Phosphorus Level 3.7 2.5-4.9 mg/dl Magnesium Level 1.7 1.8-2.4 mg/dl
[2018-01-14 19:45] VITALS: BP 111/75; PULSE 96; TEMP 36.5; O2SAT 97
[2018-01-14] MEDS: MAGNESIUM OXIDE 400 MG TAB PO SCH (20:23)
[2018-01-14] MEDS: LORAZEPAM INJ 0.5 MG in SYRINGE 0.75 ML IV PRN (21:41)
[2018-01-14 23:23] VITALS: BP 128/75; PULSE 99; TEMP 37.2; O2SAT 96
[2018-01-15 00:15] VITALS: BP 142/79; PULSE 87; TEMP 36.7; O2SAT 100
[2018-01-15 03:52] VITALS: BP 122/74; PULSE 102; TEMP 37; O2SAT 94
[2018-01-15 05:51] LABS: BASO % 0.2 %; BASO ABS # 0.01 K/uL (0-0.2); EOS % 2.8 %; EOS ABS # 0.17 K/uL (0-0.5); HEMOGLOBIN 10.7 g/dL (14.0-18.0); IG# 0.01 K/uL (0.00-0.02); LYMPH % 17.2 %; LYMPH ABS # 1.03 K/uL (1.2-3.4); MEAN CELL VOLUME 86.5 fL (80-100); MEAN CORPUSCULAR HEMOGLOBIN 27.2 pg (25-34); MEAN CORPUSCULAR HGB CONC 31.5 g/dl (32-36); MEAN PLATELET VOLUME 8.9 fL (7.4-10.4); MONO % 8.7 %; MONO ABS # 0.52 K/uL (0.11-0.59); NEUT % 70.9 %; NEUT ABS # 4.26 K/uL (1.4-6.5); PLATELET COUNT 119 K/uL (130-400); RED CELL DISTRIBUTION WIDTH CV 17.3 % (11.5-14.5); RED CELL DISTRIBUTION WIDTH SD 55.6 fL (36.4-46.3)
--- NOTE | 2018-01-15 06:24 | Surgery Progress Note ---
Surgery Progress Note Date of Service Jan 15, 2018. Subjective Post OP Day: 2 + feeling well, + ambulating (OOB to chair), + pain controlled, + diet (Ice chips/sips.), No complaints, No bowel movement, No flatus, No nausea, No vomiting Objective Vital Signs: Date Time Temp Pulse Resp B/P (MAP) Pulse Ox O2 Delivery O2 Flow Rate FiO2 01/15/18 03:52 37.0 102 16 122/74 (90) 94 Room Air 01/15/18 00:00 Room Air 01/14/18 23:23 37.2 99 16 128/75 (92) 96 Room Air 01/14/18 19:45 36.5 96 18 111/75 (87) 97 Room Air 01/14/18 15:47 Room Air 01/14/18 14:46 36.9 106 18 98/62 (74) 96 Room Air 01/14/18 12:29 36.7 109 18 100/66 (77) 96 Room Air 01/14/18 07:30 Room Air 01/14/18 07:10 36.5 103 18 145/88 (107) 100 Nasal Cannula 2.0 Physical Exam: KARMA drainage (55 ml yesterday, serosang) General Appearance: WD/WN, no apparent distress Head: normocephalic, atraumatic Neck: trachea midline Respiratory/Chest: no respiratory distress, no accessory muscle use Abdomen: soft, no organomegaly, no pulsatile mass, + distended (mild), + tenderness (Incisional) Incision(s): clean, dry, intact, no erythema, no drainage Laboratory Results: Results Past 24 Hours Test 01/15/18 05:35 Range/Units White Blood Count 6.00 4.8-10.8 K/uL Red Blood Count 3.93 4.7-6.1 M/uL Hemoglobin 10.7 14.0-18.0 g/dL Hematocrit 34.0 42-52 % Mean Corpuscular Volume 86.5 80-100 fL Mean Corpuscular Hemoglobin 27.2 25-34 pg Mean Corpuscular Hemoglobin Concent 31.5 32-36 g/dl Platelet Count 119 130-400 K/uL Mean Platelet Volume 8.9 7.4-10.4 fL Neutrophils (%) (Auto) 70.9 % Lymphocytes (%) (Auto) 17.2 % Monocytes (%) (Auto) 8.7 % Eosinophils (%) (Auto) 2.8 % Basophils (%) (Auto) 0.2 % Neutrophils # (Auto) 4.26 1.4-6.5 K/uL Lymphocytes # (Auto) 1.03 1.2-3.4 K/uL Monocytes # (Auto) 0.52 0.11-0.59 K/uL Eosinophils # (Auto) 0.17 0-0.5 K/uL Basophils # (Auto) 0.01 0-0.2 K/uL RDW Standard Deviation 55.6 36.4-46.3 fL RDW Coefficient of Variation 17.3 11.5-14.5 % Immature Granulocyte % (Auto) 0.2 % Immature Granulocyte # (Auto) 0.01 0.00-0.02 K/uL Assessment & Plan POD #2 s/p colostomy takedown, subtotal colectomy. Pain controlled, Tolerating chips/sips, No N/V. No Flatus or BM yet. 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 Will keep on chips/sips for now - possibly start clears today if evidence of bowel function returns. Dr. Sutton covering this weekend, will discuss findings. Please contact with questions or concerns.
[2018-01-15 06:27] LABS: CALCIUM 8.4 mg/dl (8.5-10.1); CREATININE 0.79 mg/dl (0.60-1.40)
[2018-01-15] MEDS: HYDROmorphone HCL 0.5MG/ML 50 ML CASSETTE IV PRN (06:57)
[2018-01-15 08:00] VITALS: BP 142/81; PULSE 102; TEMP 36.4; O2SAT 97
[2018-01-15] MEDS: LACTATED RINGER'S 1000ML 1,000 ML IV SCH ×2 (08:15→16:47)
[2018-01-15] MEDS: ENOXAPARIN 40 MG/0.4 ML SYR SQ SCH (08:16)
[2018-01-15] MEDS: ACETAMINOPHEN IV 1,000 MG in EMPTY BAG 0 ML IV SCH ×2 (08:16→16:48)
[2018-01-15] MEDS: MAGNESIUM OXIDE 400 MG TAB PO SCH ×3 (08:16→20:45)
[2018-01-15] MEDS: LISINOPRIL 10 MG TAB PO SCH (08:17)
[2018-01-15] MEDS: SODIUM CHLORIDE 0.9% 1000ML 1,000 ML IV SCH (09:54)
[2018-01-15 15:09] VITALS: BP 113/68; PULSE 102; TEMP 36.5; O2SAT 97
--- NOTE | 2018-01-15 17:31 | Progress Note ---
Internal Med Progress Note Date of Service: Jan 15, 2018. Provider Documentation: SUBJECTIVE: resting comfortably pain under control not passing gas yet afebrile no sob or chest pain OBJECTIVE: Vital Signs-as noted below Exam: General-alert and oriented. Not in distress ENT-normal hearing. Neck-No neck masses Lungs-CTA b/l no wheezing or crackles Heart-S1 and S2 heard regular rate and rhythm no murmurs Abdomen-soft Bowels sounds present sluggish dressing seen Extremities-no edema no erythema Neuro-alert and oriented moves extremities Lab data as noted below. 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 Management as per general surgery HYPERTENSION on lisinopril-reduced dose holding hctz will monitor Hyponatremia na 131 today on fluids f/u labs in am DVT PROPHYLAXIS SQ Lovenox as per general surgery DISPOSITION as per surgery Vital Signs: Date Time Temp Pulse Resp B/P (MAP) Pulse Ox O2 Delivery O2 Flow Rate FiO2 01/15/18 15:30 Room Air 01/15/18 15:09 36.5 102 18 113/68 (83) 97 Room Air 01/15/18 08:00 Room Air 01/15/18 08:00 36.4 102 18 142/81 (101) 97 Room Air 01/15/18 03:52 37.0 102 16 122/74 (90) 94 Room Air 01/15/18 00:00 Room Air 01/14/18 23:23 37.2 99 16 128/75 (92) 96 Room Air 01/14/18 19:45 36.5 96 18 111/75 (87) 97 Room Air Lab Results: Results Past 24 Hours Test 01/15/18 05:35 Range/Units White Blood Count 6.00 4.8-10.8 K/uL Red Blood Count 3.93 4.7-6.1 M/uL Hemoglobin 10.7 14.0-18.0 g/dL Hematocrit 34.0 42-52 % Mean Corpuscular Volume 86.5 80-100 fL Mean Corpuscular Hemoglobin 27.2 25-34 pg Mean Corpuscular Hemoglobin Concent 31.5 32-36 g/dl Platelet Count 119 130-400 K/uL Mean Platelet Volume 8.9 7.4-10.4 fL Neutrophils (%) (Auto) 70.9 % Lymphocytes (%) (Auto) 17.2 % Monocytes (%) (Auto) 8.7 % Eosinophils (%) (Auto) 2.8 % Basophils (%) (Auto) 0.2 % Neutrophils # (Auto) 4.26 1.4-6.5 K/uL Lymphocytes # (Auto) 1.03 1.2-3.4 K/uL Monocytes # (Auto) 0.52 0.11-0.59 K/uL Eosinophils # (Auto) 0.17 0-0.5 K/uL Basophils # (Auto) 0.01 0-0.2 K/uL RDW Standard Deviation 55.6 36.4-46.3 fL RDW Coefficient of Variation 17.3 11.5-14.5 % Immature Granulocyte % (Auto) 0.2 % Immature Granulocyte # (Auto) 0.01 0.00-0.02 K/uL Sodium Level 131 136-145 mmol/L Potassium Level 4.0 3.5-5.1 mmol/L Chloride Level 102 98-107 mmol/L Carbon Dioxide Level 20 21-32 mmol/L Anion Gap 9.0 3-11 mmol/L Blood Urea Nitrogen 12 7-18 mg/dl Creatinine 0.79 0.60-1.40 mg/dl Est Creatinine Clear Calc Drug Dose 86.6 ml/min Estimated GFR () 106.9 Estimated GFR (Non- 92.3 BUN/Creatinine Ratio 15.0 10-20 Random Glucose 82 70-99 mg/dl Calcium Level 8.4 8.5-10.1 mg/dl
[2018-01-15 21:33] VITALS: BP 150/81; PULSE 93; TEMP 37; O2SAT 100
[2018-01-15] MEDS: LORAZEPAM INJ 0.5 MG in SYRINGE 0.75 ML IV PRN (23:14)
[2018-01-16] MEDS: LACTATED RINGER'S 1000ML 1,000 ML IV SCH ×3 (00:37→19:20)
[2018-01-16] MEDS: ACETAMINOPHEN IV 1,000 MG in EMPTY BAG 0 ML IV SCH ×3 (00:37→16:00)
[2018-01-16 04:00] VITALS: BP 140/75; PULSE 82; TEMP 36.7; O2SAT 99
[2018-01-16 06:38] LABS: BASO % 0.2 %; BASO ABS # 0.01 K/uL (0-0.2); EOS % 8.5 %; HEMOGLOBIN 10.6 g/dL (14.0-18.0); LYMPH % 21.1 %; LYMPH ABS # 0.99 K/uL (1.2-3.4); MEAN CELL VOLUME 86.4 fL (80-100); MEAN CORPUSCULAR HEMOGLOBIN 27.7 pg (25-34); MEAN CORPUSCULAR HGB CONC 32.1 g/dl (32-36); MEAN PLATELET VOLUME 8.6 fL (7.4-10.4); MONO % 7.4 %; MONO ABS # 0.35 K/uL (0.11-0.59); NEUT % 62.8 %; NEUT ABS # 2.95 K/uL (1.4-6.5); PLATELET COUNT 116 K/uL (130-400); RED CELL DISTRIBUTION WIDTH CV 17.5 % (11.5-14.5); RED CELL DISTRIBUTION WIDTH SD 56.1 fL (36.4-46.3)
[2018-01-16 07:06] LABS: CALCIUM 8.4 mg/dl (8.5-10.1); CREATININE 0.66 mg/dl (0.60-1.40); POTASSIUM 3.5 mmol/L (3.5-5.1)
[2018-01-16 08:05] VITALS: BP 131/78; PULSE 84; TEMP 36.7; O2SAT 98
[2018-01-16] MEDS: SODIUM CHLORIDE 0.9% 1000ML 1,000 ML IV SCH (08:05)
[2018-01-16] MEDS: MAGNESIUM OXIDE 400 MG TAB PO SCH ×2 (08:15→20:25)
[2018-01-16] MEDS: LISINOPRIL 10 MG TAB PO SCH (08:16)
[2018-01-16] MEDS: ENOXAPARIN 40 MG/0.4 ML SYR SQ SCH (08:16)
--- NOTE | 2018-01-16 11:58 | Surgery Progress Note ---
Surgery Progress Note Date of Service Jan 16, 2018. Subjective Post OP Day: 3 + feeling well, + ambulating, + pain controlled, No bowel movement, No flatus, No nausea, No vomiting Patient sitting up in bed, doing very well. No new concerns or complaints. Objective Vital Signs: Date Time Temp Pulse Resp B/P (MAP) Pulse Ox O2 Delivery O2 Flow Rate FiO2 01/16/18 08:05 36.7 84 18 131/78 (95) 98 Room Air 01/16/18 04:00 36.7 82 16 140/75 (96) 99 Room Air 01/16/18 00:00 Room Air 01/15/18 21:33 37.0 93 18 150/81 (104) 100 Room Air 01/15/18 15:30 Room Air 01/15/18 15:09 36.5 102 18 113/68 (83) 97 Room Air Physical Exam: KARMA drainage (minimal output, serosang drainage. ) General Appearance: WD/WN, no apparent distress Head: normocephalic, atraumatic Incision(s): clean, dry, intact Laboratory Results: Results Past 24 Hours Test 01/16/18 06:16 Range/Units White Blood Count 4.70 4.8-10.8 K/uL Red Blood Count 3.82 4.7-6.1 M/uL Hemoglobin 10.6 14.0-18.0 g/dL Hematocrit 33.0 42-52 % Mean Corpuscular Volume 86.4 80-100 fL Mean Corpuscular Hemoglobin 27.7 25-34 pg Mean Corpuscular Hemoglobin Concent 32.1 32-36 g/dl Platelet Count 116 130-400 K/uL Mean Platelet Volume 8.6 7.4-10.4 fL Neutrophils (%) (Auto) 62.8 % Lymphocytes (%) (Auto) 21.1 % Monocytes (%) (Auto) 7.4 % Eosinophils (%) (Auto) 8.5 % Basophils (%) (Auto) 0.2 % Neutrophils # (Auto) 2.95 1.4-6.5 K/uL Lymphocytes # (Auto) 0.99 1.2-3.4 K/uL Monocytes # (Auto) 0.35 0.11-0.59 K/uL Eosinophils # (Auto) 0.40 0-0.5 K/uL Basophils # (Auto) 0.01 0-0.2 K/uL RDW Standard Deviation 56.1 36.4-46.3 fL RDW Coefficient of Variation 17.5 11.5-14.5 % Immature Granulocyte % (Auto) 0.0 % Immature Granulocyte # (Auto) 0.00 0.00-0.02 K/uL Sodium Level 136 136-145 mmol/L Potassium Level 3.5 3.5-5.1 mmol/L Chloride Level 105 98-107 mmol/L Carbon Dioxide Level 18 21-32 mmol/L Anion Gap 13.0 3-11 mmol/L Blood Urea Nitrogen 8 7-18 mg/dl Creatinine 0.66 0.60-1.40 mg/dl Est Creatinine Clear Calc Drug Dose 103.6 ml/min Estimated GFR () 115.1 Estimated GFR (Non- 99.3 BUN/Creatinine Ratio 11.7 10-20 Random Glucose 67 70-99 mg/dl Calcium Level 8.4 8.5-10.1 mg/dl Assessment & Plan POD #3 s/p colostomy takedown, subtotal colectomy. Patient seen and examined with Dr. Sutton. Pain controlled. Tolerating sips and chips. Ambulating in hallway. Denies nausea and vomiting. NO BM or passing flatus yet. Urine output good. KARMA drain - minimal output. 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 Will advance diet to clears - patient advised to start slow with PO intake. He verbalized understanding and agreement. POD #2 s/p colostomy takedown, subtotal colectomy. Pain controlled, Tolerating chips/sips, No N/V. No Flatus or BM yet. D/C arnold, keep KARMA, continue PET HOUSE SITTER and Lovenox. Will keep on chips/sips for now - possibly start clears today if evidence of bowel function returns. Dr. Sutton covering this weekend, will discuss findings. Please contact with questions or concerns.
[2018-01-16 15:00] VITALS: BP 118/77; PULSE 97; TEMP 36.7; O2SAT 97
--- NOTE | 2018-01-16 18:16 | Progress Note ---
Internal Med Progress Note Date of Service: Jan 16, 2018. Provider Documentation: SUBJECTIVE: resting comfortably pain under control not passing gas yet on clears likes to ambulate no sob OBJECTIVE: Vital Signs-as noted below Exam: General-alert and oriented. Not in distress ENT-normal hearing. Neck-No neck masses Lungs-CTA b/l no wheezing or crackles Heart-S1 and S2 heard regular rate and rhythm no murmurs Abdomen-soft Bowels sounds present sluggish dressing seen Extremities-no edema no erythema Neuro-alert and oriented moves extremities Lab data as noted below. 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 Management as per general surgery ambulation HYPERTENSION on lisinopril-reduced dose holding hctz will monitor Hyponatremia na 131 today on fluids resolved f/u labs in am Thrombocytopenia tolerated Lovenox in the past if further down will check HIT studies DVT PROPHYLAXIS SQ Lovenox as per general surgery DISPOSITION as per surgery Vital Signs: Date Time Temp Pulse Resp B/P (MAP) Pulse Ox O2 Delivery O2 Flow Rate FiO2 01/16/18 15:20 Room Air 01/16/18 15:00 36.7 97 16 118/77 (91) 97 Room Air 01/16/18 08:05 36.7 84 18 131/78 (95) 98 Room Air 01/16/18 07:35 Room Air 01/16/18 04:00 36.7 82 16 140/75 (96) 99 Room Air 01/16/18 00:00 Room Air 01/15/18 21:33 37.0 93 18 150/81 (104) 100 Room Air Lab Results: Results Past 24 Hours Test 01/16/18 06:16 Range/Units White Blood Count 4.70 4.8-10.8 K/uL Red Blood Count 3.82 4.7-6.1 M/uL Hemoglobin 10.6 14.0-18.0 g/dL Hematocrit 33.0 42-52 % Mean Corpuscular Volume 86.4 80-100 fL Mean Corpuscular Hemoglobin 27.7 25-34 pg Mean Corpuscular Hemoglobin Concent 32.1 32-36 g/dl Platelet Count 116 130-400 K/uL Mean Platelet Volume 8.6 7.4-10.4 fL Neutrophils (%) (Auto) 62.8 % Lymphocytes (%) (Auto) 21.1 % Monocytes (%) (Auto) 7.4 % Eosinophils (%) (Auto) 8.5 % Basophils (%) (Auto) 0.2 % Neutrophils # (Auto) 2.95 1.4-6.5 K/uL Lymphocytes # (Auto) 0.99 1.2-3.4 K/uL Monocytes # (Auto) 0.35 0.11-0.59 K/uL Eosinophils # (Auto) 0.40 0-0.5 K/uL Basophils # (Auto) 0.01 0-0.2 K/uL RDW Standard Deviation 56.1 36.4-46.3 fL RDW Coefficient of Variation 17.5 11.5-14.5 % Immature Granulocyte % (Auto) 0.0 % Immature Granulocyte # (Auto) 0.00 0.00-0.02 K/uL Sodium Level 136 136-145 mmol/L Potassium Level 3.5 3.5-5.1 mmol/L Chloride Level 105 98-107 mmol/L Carbon Dioxide Level 18 21-32 mmol/L Anion Gap 13.0 3-11 mmol/L Blood Urea Nitrogen 8 7-18 mg/dl Creatinine 0.66 0.60-1.40 mg/dl Est Creatinine Clear Calc Drug Dose 103.6 ml/min Estimated GFR () 115.1 Estimated GFR (Non- 99.3 BUN/Creatinine Ratio 11.7 10-20 Random Glucose 67 70-99 mg/dl Calcium Level 8.4 8.5-10.1 mg/dl
[2018-01-16 19:30] VITALS: BP 152/84; PULSE 82; TEMP 37.3; O2SAT 95
[2018-01-16] MEDS: LORAZEPAM INJ 0.5 MG in SYRINGE 0.75 ML IV PRN (22:07)
[2018-01-16 23:02] VITALS: BP 154/79; PULSE 90; TEMP 36.9; O2SAT 99
[2018-01-16] MEDS: HYDROmorphone HCL 0.5MG/ML 50 ML CASSETTE IV PRN (23:40)
[2018-01-17] MEDS: ACETAMINOPHEN IV 1,000 MG in EMPTY BAG 0 ML IV SCH (00:29)
[2018-01-17 03:42] VITALS: BP 162/95; PULSE 80; TEMP 37; O2SAT 99
[2018-01-17] MEDS: LACTATED RINGER'S 1000ML 1,000 ML IV SCH ×2 (05:36→19:46)
[2018-01-17] MEDS: SODIUM CHLORIDE 0.9% 1000ML 1,000 ML IV SCH (07:12)
[2018-01-17 07:30] VITALS: BP 155/89; PULSE 91; TEMP 36.6; O2SAT 97
--- NOTE | 2018-01-17 07:39 | Surgery Progress Note ---
Surgery Progress Note Date of Service Jan 17, 2018. Subjective Post OP Day: 4 + feeling well, + pain controlled, + diet (clears), No bowel movement, No flatus , No nausea Objective Vital Signs: Date Time Temp Pulse Resp B/P (MAP) Pulse Ox O2 Delivery O2 Flow Rate FiO2 01/17/18 07:30 36.6 91 17 155/89 (111) 97 Room Air 01/17/18 03:42 37.0 80 16 162/95 (117) 99 Room Air 01/17/18 00:00 Room Air 01/16/18 23:02 36.9 90 17 154/79 (104) 99 Room Air 01/16/18 19:30 37.3 82 18 152/84 (106) 95 Room Air 01/16/18 15:20 Room Air 01/16/18 15:00 36.7 97 16 118/77 (91) 97 Room Air 01/16/18 08:05 36.7 84 18 131/78 (95) 98 Room Air Physical Exam: KARMA drainage (3), urine output (475) Abdomen: non distended, soft Incision(s): clean, dry Assessment & Plan s/p colostomy takedown, subtotal colectomy 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
[2018-01-17] MEDS ORDERED: ACETAMINOPHEN 325 MG TAB PO PRN (07:45)
[2018-01-17] MEDS: MAGNESIUM OXIDE 400 MG TAB PO SCH ×2 (08:52→21:00)
[2018-01-17] MEDS: ENOXAPARIN 40 MG/0.4 ML SYR SQ SCH (08:53)
[2018-01-17] MEDS: LISINOPRIL 10 MG TAB PO SCH (08:53)
[2018-01-17 14:52] VITALS: BP 137/84; PULSE 105; TEMP 36.7; O2SAT 96
[2018-01-17] MEDS: LORAZEPAM INJ 0.5 MG in SYRINGE 0.75 ML IV PRN (17:34)
--- NOTE | 2018-01-17 19:27 | Progress Note ---
Internal Med Progress Note Date of Service: Jan 17, 2018. Provider Documentation: SUBJECTIVE: resting comfortably tolerating clears not passed gas yet ambulating fine pain under control afebrile no sob OBJECTIVE: Vital Signs-as noted below Exam: General-alert and oriented. Not in distress ENT-normal hearing. Neck-No neck masses Lungs-CTA b/l no wheezing or crackles Heart-S1 and S2 heard regular rate and rhythm no murmurs Abdomen-soft Bowels sounds present sluggish dressing seen Extremities-no edema no erythema Neuro-alert and oriented moves extremities Lab data as noted below. 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 Management as per general surgery ambulation HYPERTENSION on lisinopril-reduced dose holding hctz will monitor Hyponatremia na 131 today on fluids resolved f/u labs in am Thrombocytopenia tolerated Lovenox in the past if further down will check HIT studies DVT PROPHYLAXIS SQ Lovenox as per general surgery DISPOSITION as per surgery Vital Signs: Date Time Temp Pulse Resp B/P (MAP) Pulse Ox O2 Delivery O2 Flow Rate FiO2 01/17/18 17:42 Room Air 01/17/18 14:52 36.7 105 18 137/84 (101) 96 Room Air 01/17/18 07:30 36.6 91 17 155/89 (111) 97 Room Air 01/17/18 07:10 Room Air 01/17/18 03:42 37.0 80 16 162/95 (117) 99 Room Air 01/17/18 00:00 Room Air 01/16/18 23:02 36.9 90 17 154/79 (104) 99 Room Air 01/16/18 19:30 37.3 82 18 152/84 (106) 95 Room Air
[2018-01-17 20:06] VITALS: BP 133/75; PULSE 81; TEMP 37.4; O2SAT 90
[2018-01-17] MEDS: HYDROmorphone HCL 0.5MG/ML 50 ML CASSETTE IV PRN (22:51)
[2018-01-17 23:40] VITALS: BP 158/83; PULSE 71; TEMP 37.1; O2SAT 97
[2018-01-18 03:58] VITALS: BP 136/82; PULSE 86; TEMP 36.7; O2SAT 97
[2018-01-18] MEDS: LACTATED RINGER'S 1000ML 1,000 ML IV SCH (05:17)
[2018-01-18] MEDS: HYDROmorphone HCL 0.5MG/ML 50 ML CASSETTE IV PRN ×2 (06:49→23:04)
[2018-01-18 06:58] LABS: BASO % 0.4 %; BASO ABS # 0.01 K/uL (0-0.2); EOS % 17.5 %; EOS ABS # 0.47 K/uL (0-0.5); HEMATOCRIT 31.8 % (42-52); HEMOGLOBIN 10.2 g/dL (14.0-18.0); LYMPH % 27.1 %; LYMPH ABS # 0.73 K/uL (1.2-3.4); MEAN CELL VOLUME 85.5 fL (80-100); MEAN CORPUSCULAR HEMOGLOBIN 27.4 pg (25-34); MEAN CORPUSCULAR HGB CONC 32.1 g/dl (32-36); MEAN PLATELET VOLUME 8.6 fL (7.4-10.4); MONO % 12.6 %; MONO ABS # 0.34 K/uL (0.11-0.59); NEUT % 42.4 %; NEUT ABS # 1.14 K/uL (1.4-6.5); PLATELET COUNT 138 K/uL (130-400); RED CELL DISTRIBUTION WIDTH CV 16.9 % (11.5-14.5); RED CELL DISTRIBUTION WIDTH SD 53.3 fL (36.4-46.3); WHITE BLOOD COUNT 2.69 K/uL (4.8-10.8)
--- NOTE | 2018-01-18 07:14 | Surgery Progress Note ---
Surgery Progress Note Date of Service Jan 18, 2018. Subjective + feeling well, + ambulating, + flatus (Passed first flatus last night as he was standing up, minimal.), + diet (Tolerating clears), No complaints, No bowel movement, No nausea, No vomiting Objective Vital Signs: Date Time Temp Pulse Resp B/P (MAP) Pulse Ox O2 Delivery O2 Flow Rate FiO2 01/18/18 03:58 36.7 86 16 136/82 (100) 97 Room Air 01/18/18 00:00 Room Air 01/17/18 23:40 37.1 71 18 158/83 (108) 97 Room Air 01/17/18 20:06 37.4 81 18 133/75 (94) 90 Room Air 01/17/18 17:42 Room Air 01/17/18 14:52 36.7 105 18 137/84 (101) 96 Room Air 01/17/18 07:30 36.6 91 17 155/89 (111) 97 Room Air 01/17/18 07:10 Room Air General Appearance: WD/WN, no apparent distress Head: normocephalic, atraumatic Respiratory/Chest: no respiratory distress, no accessory muscle use Abdomen: non distended, soft, no organomegaly, no pulsatile mass, + tenderness (Mild) Incision(s): clean, dry Laboratory Results: Results Past 24 Hours Test 01/18/18 06:27 Range/Units White Blood Count 2.69 4.8-10.8 K/uL Red Blood Count 3.72 4.7-6.1 M/uL Hemoglobin 10.2 14.0-18.0 g/dL Hematocrit 31.8 42-52 % Mean Corpuscular Volume 85.5 80-100 fL Mean Corpuscular Hemoglobin 27.4 25-34 pg Mean Corpuscular Hemoglobin Concent 32.1 32-36 g/dl Platelet Count 138 130-400 K/uL Mean Platelet Volume 8.6 7.4-10.4 fL Neutrophils (%) (Auto) 42.4 % Lymphocytes (%) (Auto) 27.1 % Monocytes (%) (Auto) 12.6 % Eosinophils (%) (Auto) 17.5 % Basophils (%) (Auto) 0.4 % Neutrophils # (Auto) 1.14 1.4-6.5 K/uL Lymphocytes # (Auto) 0.73 1.2-3.4 K/uL Monocytes # (Auto) 0.34 0.11-0.59 K/uL Eosinophils # (Auto) 0.47 0-0.5 K/uL Basophils # (Auto) 0.01 0-0.2 K/uL RDW Standard Deviation 53.3 36.4-46.3 fL RDW Coefficient of Variation 16.9 11.5-14.5 % Immature Granulocyte % (Auto) 0.0 % Immature Granulocyte # (Auto) 0.00 0.00-0.02 K/uL Assessment & Plan s/p colostomy takedown, subtotal colectomy Pain minimal. Abdomen soft, non-distended. Passed first flatus last night, still no BM. 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 Continue clears and ambulation. PT/OT. Will continue to monitor.
[2018-01-18 07:29] LABS: CALCIUM 8.4 mg/dl (8.5-10.1); CREATININE 0.46 mg/dl (0.60-1.40); POTASSIUM 3.1 mmol/L (3.5-5.1)
[2018-01-18 08:22] VITALS: BP 140/80; PULSE 76; TEMP 36.8; O2SAT 97
[2018-01-18] MEDS: ENOXAPARIN 40 MG/0.4 ML SYR SQ SCH (08:51)
[2018-01-18] MEDS: LISINOPRIL 10 MG TAB PO SCH (08:52)
[2018-01-18] MEDS: MAGNESIUM OXIDE 400 MG TAB PO SCH ×2 (08:52→20:33)
[2018-01-18] MEDS ORDERED: POTASSIUM CHLORIDE 20 MEQ/15 ML UDC PO ONE ×2 (11:45→18:00)
[2018-01-18] MEDS: SODIUM CHLORIDE 0.9% 1000ML 1,000 ML IV SCH (12:02)
[2018-01-18] MEDS: MAGNESIUM SULFATE 1GM / D5W 1 GM in PREMIXED IN D5W 100 ML IV SCH ×2 (12:13→12:45)
[2018-01-18 12:44] VITALS: BP 142/80; PULSE 80; TEMP 36.9; O2SAT 95
--- NOTE | 2018-01-18 13:05 | Progress Note ---
Medicine Progress Note Date & Time of Visit: Jan 18, 2018 at 13:00. Subjective Seen sitting up in bed, in good spirits,, comfortable Past positive flatus last night, no BMs yet Still feels sore at the surgical site in the abdomen Otherwise denies dizziness, nausea, chest pain, shortness of breath Ambulating in the halls with no problems Denies other symptoms Objective Last 8 Hrs Date Time Temp Pulse Resp B/P (MAP) Pulse Ox O2 Delivery O2 Flow Rate FiO2 01/18/18 12:44 36.9 80 17 142/80 (100) 95 Room Air 01/18/18 08:22 36.8 76 18 140/80 (100) 97 Room Air 76 01/18/18 07:10 Room Air Physical Exam: General-oriented 3, not in distress, speaking sentences Head- atraumatic Eyes- PERRL, EOMI, anicteric ENT- oropharynx clear Neck- supple, no JVD, no adenopathy, no thyromegaly Lungs- clear breath sounds bilaterally no rales or wheezes Heart- regular rhythm; no murmur, normal rate Abdomen- normal bowel sounds, positive dressing in place clean no discharge, no bleeding soft, nontender Extremities- no pretibial edema, no calf tenderness; peripheral pulses intact Neuro- alert, oriented x 3; no gross focal motor or sensory deficits Skin- warm & dry Laboratory Results: Last 24 Hours Test 01/18/18 06:27 White Blood Count 2.69 K/uL Red Blood Count 3.72 M/uL Hemoglobin 10.2 g/dL Hematocrit 31.8 % Mean Corpuscular Volume 85.5 fL Mean Corpuscular Hemoglobin 27.4 pg Mean Corpuscular Hemoglobin Concent 32.1 g/dl Platelet Count 138 K/uL Mean Platelet Volume 8.6 fL Neutrophils (%) (Auto) 42.4 % Lymphocytes (%) (Auto) 27.1 % Monocytes (%) (Auto) 12.6 % Eosinophils (%) (Auto) 17.5 % Basophils (%) (Auto) 0.4 % Neutrophils # (Auto) 1.14 K/uL Lymphocytes # (Auto) 0.73 K/uL Monocytes # (Auto) 0.34 K/uL Eosinophils # (Auto) 0.47 K/uL Basophils # (Auto) 0.01 K/uL RDW Standard Deviation 53.3 fL RDW Coefficient of Variation 16.9 % Immature Granulocyte % (Auto) 0.0 % Immature Granulocyte # (Auto) 0.00 K/uL Sodium Level 140 mmol/L Potassium Level 3.1 mmol/L Chloride Level 109 mmol/L Carbon Dioxide Level 23 mmol/L Anion Gap 9.0 mmol/L Blood Urea Nitrogen 3 mg/dl Creatinine 0.46 mg/dl Est Creatinine Clear Calc Drug Dose 148.7 ml/min Estimated GFR () 133.6 Estimated GFR (Non- 115.2 BUN/Creatinine Ratio 5.4 Random Glucose 112 mg/dl Calcium Level 8.4 mg/dl Magnesium Level 1.6 mg/dl Assessment & Plan S/P COLOSTOMY TAKEDOWN Postop day #5 s/p planned colostomy takedown; colostomy was placed in October 2017 for complicated diverticulitis received empiric Unasyn Positive flatus no BMs Clear liquids advance diet per general surgery service Pain well controlled HYPOKALEMIA, HYPOMAGNESEMIA will replace with oral and IV potassium and magnesium Repeat levels in the afternoon HYPERTENSION on lisinopril-reduced dose holding hctz will monitor Hyponatremia Resolved Thrombocytopenia Platelet counts improving now at 138 Thank you for this consultation. We will follow the patient with you during their hospital stay. You can reach a member of the [facility] Hospitalist Team 26/04 via pager @ [phone]. Current Inpatient Medications: Current Inpatient Medications Medications (Trade) Dose Ordered Sig/King Route Start Time Stop Time Status Last Admin Dose Admin Lactated Ringer's 1,000 ml @ 80 mls/hr [id number] IV 01/13/18 12:02 02/12/18 12:01 01/18/18 05:17 80 MLS/HR Ondansetron HCl (Zofran Inj) 4 mg Q6H PRN IV 01/13/18 12:15 02/12/18 12:14 Enoxaparin Sodium (Lovenox Inj) 40 mg Q24H SQ 01/14/18 09:00 02/13/18 08:59 01/18/18 08:51 40 MG Naloxone HCl (Narcan Inj) 0.1 mg Q5M PRN IV 01/13/18 12:15 02/12/18 12:14 Hydromorphone HCl (Dilaudid Coffee Blender) 25 mg PRN PRN IV 01/13/18 12:15 01/27/18 12:14 01/18/18 06:49 25 MG Sodium Chloride 1,000 ml @ 15 mls/hr Q24H IV 01/13/18 12:02 02/12/18 12:01 Baclofen (Lioresal Tab) 10 mg TID PRN PO 01/13/18 12:15 02/12/18 12:14 Magnesium Oxide (Mag-Ox Tab) 400 mg BID PO 01/14/18 21:00 02/13/18 20:59 01/18/18 08:52 400 MG Lisinopril (Zestril Tab) 10 mg QAM PO 01/15/18 09:00 02/14/18 08:59 01/18/18 08:52 10 MG Fluticasone Propionate (Flonase Nasal [place]) 1 sprays BETWEENUNITS PRN NA 01/14/18 15:45 02/13/18 07:59 01/14/18 21:14 1 SPRAYS Lorazepam 0.5 mg/ Syringe 1 ml @ 0.5 mls/min Q4H PRN IV 01/14/18 16:00 02/13/18 15:59 01/17/18 17:34 0.5 MLS/MIN Acetaminophen (Tylenol Tab) 650 mg Q4H PRN PO 01/17/18 07:45 02/16/18 07:44 01/17/18 21:11 650 MG Magnesium Sulfate 1 gm/Prmx 100 ml @ 100 mls/hr Q1H IV 01/18/18 11:45 01/18/18 13:44 01/18/18 12:13 100 MLS/HR
[2018-01-18 15:46] VITALS: BP 154/83; PULSE 100; TEMP 37.1; O2SAT 97
[2018-01-18 17:38] LABS: POTASSIUM 3.2 mmol/L (3.5-5.1)
[2018-01-18] MEDS: POTASSIUM CHLORIDE INJ 20 MEQ in LACTATED RINGER'S 1000ML 1,000 ML IV SCH (19:35)
[2018-01-18 23:40] VITALS: BP 156/91; PULSE 97; TEMP 36.9; O2SAT 99
[2018-01-19] MEDS: LORAZEPAM INJ 0.5 MG in SYRINGE 0.75 ML IV PRN (00:43)
[2018-01-19 03:35] VITALS: BP 133/80; PULSE 93; TEMP 37; O2SAT 99
[2018-01-19] MEDS: POTASSIUM CHLORIDE INJ 20 MEQ in LACTATED RINGER'S 1000ML 1,000 ML IV SCH (05:46)
[2018-01-19 06:41] LABS: HEMATOCRIT 31.6 % (42-52); HEMOGLOBIN 10.4 g/dL (14.0-18.0); MEAN CELL VOLUME 85.9 fL (80-100); MEAN CORPUSCULAR HEMOGLOBIN 28.3 pg (25-34); MEAN CORPUSCULAR HGB CONC 32.9 g/dl (32-36); MEAN PLATELET VOLUME 8.4 fL (7.4-10.4); PLATELET COUNT 159 K/uL (130-400); RED CELL DISTRIBUTION WIDTH CV 17.1 % (11.5-14.5); RED CELL DISTRIBUTION WIDTH SD 54.5 fL (36.4-46.3); WHITE BLOOD COUNT 3.23 K/uL (4.8-10.8)
[2018-01-19] MEDS: HYDROmorphone HCL 0.5MG/ML 50 ML CASSETTE IV PRN (06:46)
[2018-01-19 06:51] VITALS: BP 151/90; PULSE 96; TEMP 37.1; O2SAT 96
[2018-01-19 07:02] LABS: CREATININE 0.48 mg/dl (0.60-1.40)
[2018-01-19] MEDS: HYDROCODONE/ACETAMI 10/325 TAB PO PRN ×4 (08:03→22:54)
[2018-01-19] MEDS: MAGNESIUM OXIDE 400 MG TAB PO SCH ×2 (09:14→21:19)
[2018-01-19] MEDS: LISINOPRIL 10 MG TAB PO SCH (09:14)
[2018-01-19] MEDS: ENOXAPARIN 40 MG/0.4 ML SYR SQ SCH (09:15)
[2018-01-19 09:18] LABS: CALCIUM 8.6 mg/dl (8.5-10.1); CREATININE 0.5 mg/dl (0.60-1.40); POTASSIUM 3.8 mmol/L (3.5-5.1)
--- NOTE | 2018-01-19 11:54 | Surgery Progress Note ---
Surgery Progress Note Date of Service Jan 19, 2018. Subjective Post OP Day: + feeling well, + bowel movement feeling well. +BM's. tash liquids Objective Vital Signs: Date Time Temp Pulse Resp B/P (MAP) Pulse Ox O2 Delivery O2 Flow Rate FiO2 01/19/18 07:50 Room Air 01/19/18 06:51 37.1 96 18 151/90 (110) 96 Room Air 01/19/18 03:35 37.0 93 16 133/80 (97) 99 Room Air 01/19/18 00:00 Room Air 01/18/18 23:40 36.9 97 20 156/91 (112) 99 Room Air 01/18/18 20:10 Room Air 01/18/18 15:46 37.1 100 18 154/83 (106) 97 Room Air 01/18/18 12:44 36.9 80 17 142/80 (100) 95 Room Air General Appearance: no apparent distress Respiratory/Chest: no respiratory distress Abdomen: non distended, soft Incision(s): clean, dry, intact, no erythema Laboratory Results: Results Past 24 Hours Test 01/18/18 17:01 01/19/18 05:51 01/19/18 08:20 Range/Units Potassium Level 3.2 3.8 3.5-5.1 mmol/L Magnesium Level 2.1 1.9 1.8-2.4 mg/dl White Blood Count 3.23 4.8-10.8 K/uL Red Blood Count 3.68 4.7-6.1 M/uL Hemoglobin 10.4 14.0-18.0 g/dL Hematocrit 31.6 42-52 % Mean Corpuscular Volume 85.9 80-100 fL Mean Corpuscular Hemoglobin 28.3 25-34 pg Mean Corpuscular Hemoglobin Concent 32.9 32-36 g/dl RDW Standard Deviation 54.5 36.4-46.3 fL RDW Coefficient of Variation 17.1 11.5-14.5 % Platelet Count 159 130-400 K/uL Mean Platelet Volume 8.4 7.4-10.4 fL Creatinine 0.48 0.50 0.60-1.40 mg/dl Est Creatinine Clear Calc Drug Dose 142.5 136.8 ml/min Estimated GFR () 131.2 129.1 Estimated GFR (Non- 113.2 111.4 Sodium Level 139 136-145 mmol/L Chloride Level 108 98-107 mmol/L Carbon Dioxide Level 26 21-32 mmol/L Anion Gap 5.0 3-11 mmol/L Blood Urea Nitrogen 2 7-18 mg/dl BUN/Creatinine Ratio 4.6 10-20 Random Glucose 112 70-99 mg/dl Calcium Level 8.6 8.5-10.1 mg/dl Chemistry Specimen Hemolysis Assessment & Plan 01/19/18 doing well 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
[2018-01-19 15:31] VITALS: BP 129/82; PULSE 95; TEMP 36.4; O2SAT 95
--- NOTE | 2018-01-19 18:09 | Progress Note ---
Medicine Progress Note Date & Time of Visit: Jan 19, 2018 at 18:06. Subjective Seen resting in bedside chair, comfortable States he feels fine Positive BMs, diet has been advanced Abdominal pain improving No other symptoms Objective Last 8 Hrs Date Time Temp Pulse Resp B/P (MAP) Pulse Ox O2 Delivery O2 Flow Rate FiO2 01/19/18 15:31 36.4 95 20 129/82 (98) 95 Room Air Physical Exam: General-oriented 3, not in distress, speaking sentences Eyes- anicteric ENT- oropharynx clear Neck- supple, no JVD Lungs- clear breath sounds bilaterally Heart- regular rhythm; no murmur, normal rate Abdomen- normal bowel sounds, nondistended, nontender Extremities- no pretibial edema, no calf tenderness Neuro- alert, oriented x 3; no gross focal motor or sensory deficits Skin- warm & dry Laboratory Results: Last 24 Hours Test 01/19/18 05:51 01/19/18 08:20 White Blood Count 3.23 K/uL Red Blood Count 3.68 M/uL Hemoglobin 10.4 g/dL Hematocrit 31.6 % Mean Corpuscular Volume 85.9 fL Mean Corpuscular Hemoglobin 28.3 pg Mean Corpuscular Hemoglobin Concent 32.9 g/dl RDW Standard Deviation 54.5 fL RDW Coefficient of Variation 17.1 % Platelet Count 159 K/uL Mean Platelet Volume 8.4 fL Creatinine 0.48 mg/dl 0.50 mg/dl Est Creatinine Clear Calc Drug Dose 142.5 ml/min 136.8 ml/min Estimated GFR () 131.2 129.1 Estimated GFR (Non- 113.2 111.4 Sodium Level 139 mmol/L Potassium Level 3.8 mmol/L Chloride Level 108 mmol/L Carbon Dioxide Level 26 mmol/L Anion Gap 5.0 mmol/L Blood Urea Nitrogen 2 mg/dl BUN/Creatinine Ratio 4.6 Random Glucose 112 mg/dl Calcium Level 8.6 mg/dl Magnesium Level 1.9 mg/dl Chemistry Specimen Hemolysis Assessment & Plan S/P COLOSTOMY TAKEDOWN Postop day #6 s/p planned colostomy takedown; colostomy was placed in October 2017 for complicated diverticulitis received empiric Unasyn Positive BMs today Diet advanced Pain well controlled HYPOKALEMIA, HYPOMAGNESEMIA Resolved Repeat levels in a.m. HYPERTENSION on lisinopril-reduced dose holding hctz will monitor Hyponatremia Resolved Thrombocytopenia Platelet counts improving now at 138 Thank you for this consultation. We will follow the patient with you during their hospital stay. You can reach a member of the [facility] Hospitalist Team 26/04 via pager @ . Current Inpatient Medications: Current Inpatient Medications Medications (Trade) Dose Ordered Sig/King Route Start Time Stop Time Status Last Admin Dose Admin Ondansetron HCl (Zofran Inj) 4 mg Q6H PRN IV 01/13/18 12:15 02/12/18 12:14 Enoxaparin Sodium (Lovenox Inj) 40 mg Q24H SQ 01/14/18 09:00 02/13/18 08:59 01/19/18 09:15 40 MG Baclofen (Lioresal Tab) 10 mg TID PRN PO 01/13/18 12:15 02/12/18 12:14 Magnesium Oxide (Mag-Ox Tab) 400 mg BID PO 01/14/18 21:00 02/13/18 20:59 01/19/18 09:14 400 MG Lisinopril (Zestril Tab) 10 mg QAM PO 01/15/18 09:00 02/14/18 08:59 01/19/18 09:14 10 MG Fluticasone Propionate (Flonase Nasal [place]) 1 sprays BETWEENUNITS PRN NA 01/14/18 15:45 02/13/18 07:59 01/14/18 21:14 1 SPRAYS Lorazepam 0.5 mg/ Syringe 1 ml @ 0.5 mls/min Q4H PRN IV 01/14/18 16:00 02/13/18 15:59 01/19/18 00:43 0.5 MLS/MIN Acetaminophen (Tylenol Tab) 650 mg Q4H PRN PO 01/17/18 07:45 02/16/18 07:44 01/17/18 21:11 650 MG Acetaminophen/ Hydrocodone Bitart ([place] 10/325 Tab) 1 tab Q4 PRN PO 01/19/18 07:30 02/02/18 07:29 01/19/18 13:02 1 TAB
[2018-01-19 23:00] VITALS: BP 156/90; PULSE 86; TEMP 36.8; O2SAT 99
[2018-01-20] MEDS: HYDROCODONE/ACETAMI 10/325 TAB PO PRN ×3 (03:12→11:59)
[2018-01-20 06:15] LABS: CALCIUM 8.4 mg/dl (8.5-10.1); CREATININE 0.52 mg/dl (0.60-1.40); POTASSIUM 3.3 mmol/L (3.5-5.1)
--- NOTE | 2018-01-20 06:43 | Surgery Progress Note ---
Surgery Progress Note Date of Service Jan 20, 2018. Subjective + feeling well, + bowel movement, + flatus, + pain controlled, + diet ( Tolerating low-fiber diet. ), No complaints, No ambulating, No nausea, No vomiting Objective Vital Signs: Date Time Temp Pulse Resp B/P (MAP) Pulse Ox O2 Delivery O2 Flow Rate FiO2 01/20/18 00:00 Room Air 01/19/18 23:00 36.8 86 16 156/90 (112) 99 Room Air 01/19/18 19:30 Room Air 01/19/18 15:31 36.4 95 20 129/82 (98) 95 Room Air 01/19/18 07:50 Room Air 01/19/18 06:51 37.1 96 18 151/90 (110) 96 Room Air Physical Exam: KARMA drainage (9 ml output yesterday, 0 ml output so far today.) General Appearance: WD/WN, no apparent distress Head: normocephalic, atraumatic Respiratory/Chest: no respiratory distress Abdomen: non distended, soft, no organomegaly, no pulsatile mass, + tenderness (mild incisional) Incision(s): clean, dry, intact, no erythema, no drainage Laboratory Results: Results Past 24 Hours Test 01/19/18 08:20 01/20/18 05:07 Range/Units Sodium Level 139 138 136-145 mmol/L Potassium Level 3.8 3.3 3.5-5.1 mmol/L Chloride Level 108 107 98-107 mmol/L Carbon Dioxide Level 26 26 21-32 mmol/L Anion Gap 5.0 5.0 3-11 mmol/L Blood Urea Nitrogen 2 4 7-18 mg/dl Creatinine 0.50 0.52 0.60-1.40 mg/dl Est Creatinine Clear Calc Drug Dose 136.8 131.5 ml/min Estimated GFR () 129.1 127.0 Estimated GFR (Non- 111.4 109.6 BUN/Creatinine Ratio 4.6 7.4 10-20 Random Glucose 112 98 70-99 mg/dl Calcium Level 8.6 8.4 8.5-10.1 mg/dl Magnesium Level 1.9 1.8 1.8-2.4 mg/dl Chemistry Specimen Hemolysis Assessment & Plan s/p colostomy takedown, subtotal colectomy Doing well, minimal pain controlled on PO analgesics. Tolerating low-fiber diet, No N/V. Urinating okay. Minimal KARMA output, serosang - will D/C. Probable d/c today if he continues to do well. Will discuss findings with Dr. Shea. Please contact with questions or concerns.
--- NOTE | 2018-01-20 06:46 | Discharge Instructions ---
Discharge Instructions Date of Service Jan 20, 2018. Admission Reason for Admission: Peritonitis Discharge Discharge Diagnosis / Problem: peritonitis Discharge Goals Goal(s): Decrease discomfort, Improve function Activity Recommendations Activity Limitations: as noted below Lifting Limitations: no more than 10 pounds, until after follow-up appointment Exercise/Sports Limitations: until after follow-up appointment May Resume Sexual Activity: after follow-up appointment Shower/Bathe: no limitations Driving or Machine Use: resume 3 days after discharge (Please do not drive while using narcotic pain medication) . Instructions / Follow-Up Instructions / Follow-Up Please follow-up with Dr. Shea in the office in 1-2 weeks. Please contact our office at to schedule an appointment if you have not done so already. Please contact our office with any questions or concerns. [facility]. [address] [place] [address]. Current Hospital Diet Patient's current hospital diet: Low Fiber Diet Discharge Diet Recommended Diet: Regular Diet Procedures Procedures Performed: SUBTOTAL COLECTOMY, TAKE DOWN OF COLCOSTOMY, ENTEROLYSIS Pending Studies Studies pending at discharge: no Medical Emergencies . Who to Call and When: Medical Emergencies: If at any time you feel your situation is an emergency, please call 911 immediately. . Non-Emergent Contact Non-Emergency issues call your: Primary Care Provider, Surgeon Call Non-Emergent contact if: you have a fever, temperature is above 101.5, your pain is not controlled, your pain is worsening, wound has increased drainage, wound has increased redness . "Provider Documentation" section prepared by Abran Anna. . [place] Drug Monitoring Program Search Results: patient reviewed within database, no issues identified
[2018-01-20] MEDS ORDERED: HYDR-5688 PO (07:04)
[2018-01-20 07:57] VITALS: BP 166/76; PULSE 86; TEMP 36.7; O2SAT 98
[2018-01-20] MEDS ORDERED: HYDR-4079 PO (08:37)
[2018-01-20] MEDS: MAGNESIUM OXIDE 400 MG TAB PO SCH (08:55)
[2018-01-20] MEDS: LISINOPRIL 10 MG TAB PO SCH (08:56)
[2018-01-20] MEDS: ENOXAPARIN 40 MG/0.4 ML SYR SQ SCH (08:56)
[2018-01-20] MEDS ORDERED: POTASSIUM CHLORIDE 10 MEQ TABCR PO SCH (09:00)
[2018-01-20 11:21] VITALS: BP 166/76; PULSE 86; TEMP 36.7; O2SAT 98
[2018-01-20] MEDS ORDERED: POTA10CA28 PO (13:02)
--- NOTE | 2018-01-20 15:29 | Progress Note ---
Medicine Progress Note Date & Time of Visit: Jan 20, 2018 at 15:27. Subjective seen sitting up in bedside chair comfortable denies symptoms for discharge today Objective Last 8 Hrs Date Time Temp Pulse Resp B/P (MAP) Pulse Ox O2 Delivery O2 Flow Rate FiO2 01/20/18 11:21 36.7 86 19 98 Room Air 01/20/18 07:57 36.7 86 19 166/76 (106) 98 Room Air Physical Exam: General-oriented 3, not in distress, speaking sentences Eyes- anicteric Neck- no JVD Lungs- clear breath sounds bilaterally, no rales Heart- regular rhythm; no murmur, normal rate Abdomen- normal bowel sounds, nondistended, nontender Extremities- no pretibial edema, no calf tenderness Neuro- alert, oriented x 3; no gross focal motor or sensory deficits Skin- warm & dry Laboratory Results: Last 24 Hours Test 01/20/18 05:07 Sodium Level 138 mmol/L Potassium Level 3.3 mmol/L Chloride Level 107 mmol/L Carbon Dioxide Level 26 mmol/L Anion Gap 5.0 mmol/L Blood Urea Nitrogen 4 mg/dl Creatinine 0.52 mg/dl Est Creatinine Clear Calc Drug Dose 131.5 ml/min Estimated GFR () 127.0 Estimated GFR (Non- 109.6 BUN/Creatinine Ratio 7.4 Random Glucose 98 mg/dl Calcium Level 8.4 mg/dl Magnesium Level 1.8 mg/dl Assessment & Plan S/P COLOSTOMY TAKEDOWN Postop day #7 s/p planned colostomy takedown; colostomy was placed in October 2017 for complicated diverticulitis received empiric Unasyn Positive BMs Diet advanced, tolerated weel Pain well controlled HYPOKALEMIA, HYPOMAGNESEMIA K 3.3 discharge on K 40meq daily x 7 days ff up with PCP next week, repeat K and Mg during ff up visit HYPERTENSION resume Lisinopril/HCTZ Hyponatremia Resolved Thrombocytopenia Platelet counts improved Thank you for this consultation. We will follow the patient with you during their hospital stay. You can reach a member of the [facility] Hospitalist Team 26/04 via pager @ .
--- NOTE | 2018-01-20 23:16 | Discharge Summary ---
Discharge Summary Date of Service Jan 20, 2018. Admission Date/Reason Jan 13, 2018 at 12:12 Peritonitis. Discharge Date/Disposition Jan 20, 2018 Home Diagnosis Principal Diagnosis: Peritonitis Procedure(s) Performed SUBTOTAL COLECTOMY, TAKE DOWN OF COLCOSTOMY, ENTEROLYSIS s/p transverse colectomy with partial small bowel obstruction Medication Reconciliation Potassium chloride 10 Meq capsules, 40 Meq daily x 10 days. Disp: 40 Capsules Alna 10mg/325mg 1-2 Tablets PO Q4H PRN for pain x 3 days. Disp: 30 Tablets. Admission Physical Exam As per Admitting History & Physical. Hospital Course 01/13/18: Patient presented to the hospital today for scheduled subtotal colectomy, takedown of colostomy, enterolysis with Dr. Shea. The patient was prepped for surgery in the same day surgery unit and then taken to the OR. The procedure was performed successfully without complications. A drain was placed during the procedure as well. The patient was then taken to the PACU for post- op recovery and then admitted to med/surg for post-op care. 01/14/18: Doing well, pain controlled. Arnold in place. On BEHAVIORAL MODIFICATION ASSISTANT. KARMA serous. No flatus or BM yet. Tolerating chips/sips. Start lovenox today. OOB as tolerated. Keep BEHAVIORAL MODIFICATION ASSISTANT and KARMA. D/C arnold in 24 hours. 01/15/18: Pain controlled, Tolerating chips/sips, No N/V. No flatus or BM yet. D/C arnold. keep KARMA. Continue BEHAVIORAL MODIFICATION ASSISTANT and lovenox. 01/16/18: Pain controlled, Ambulating in hallway. Tolerating chips/sips, No N/V. Still no flatus or BM. Urinating without issue. KARMA with minimal output. Will continue BEHAVIORAL MODIFICATION ASSISTANT until tomorrow. Diet advanced to clears - advised slow intake at first. 01/17/18: Doing well, pain controlled. Tolerating clears, No N/V. +BS. Still no flatus or BM. H&H stable. Consult PT/OT. Wean BEHAVIORAL MODIFICATION ASSISTANT over next 24 hours. Continue on clears for now. 01/18/18: Pain controlled, minimal. +flatus, No BM yet. Wound looks good, dressings changed. Awaiting bowel functions. PT/OT - continue to increase activity. Keep clears for now. 01/19/18: Doing well, minimal pain. +flatus, +BM. Advanced to full liquids today and further advanced to low-fiber diet later in the day. D/C BEHAVIORAL MODIFICATION ASSISTANT and switched to PO pain meds. Possible D/C tomorrow. 01/20/18: Doing well, minimal pain on PO analgesics. Tolerating low-fiber diet, No N/ V. Urinating without issue. D/C KARMA drain. Patient was discharged today with instructions on limitation and wound care. He was sent home with a prescription for Alna to take as needed for pain relief. He was given instructions to follow -up with Dr. Shea in the general surgery clinic. Discharge Instructions Please refer to the electronic Patient Visit Report (Discharge Instructions) for additional information.
== END 2018-01-20 13:42 | disposition home health service (06) | DRG 330 ==
LOC: C.ACU 07:22 → C.MSN 12:12 → ENRESERV 12:43
PROVIDERS: ADMIT Surgery; ATTEND Surgery
PROC: 0DBL0ZZ Excision of Transverse Colon, Open Approach (ICD-10-PCS; principal; 2018-01-13 09:30)
DX: Z43.3 Encounter for attention to colostomy (principal); E87.1 Hypo-osmolality and hyponatremia; M54.2 Cervicalgia; G89.29 Other chronic pain; I10 Essential (primary) hypertension; Z82.49 Family history of ischemic heart disease and other diseases of the circulatory system; D69.6 Thrombocytopenia, unspecified; E83.42 Hypomagnesemia

== ENCOUNTER 2020-02-11 05:44 | Observation (INO) ==
[~2020-02-11 05:44] MED LIST changes: -ACETAMINOPHEN 1000 MG/100 ML IV IV ONE; -ATROPINE SULFATE 0.1 MG/ML 5ML SYR IV PRN; -BACL10TA PO; -BUTA1CAP17 PO; -CEFAZOLIN 2000MG IV PUSH 15 ML IV SCH; -EpHEDrine SULFATE INJ 50 MG/ML AMP IV PRN; -FERR1TAB13 PO; -FLUMAZENIL 0.1 MG/1 ML 10 ML VIAL IV PRN; -FLUT27.53; -HEPARIN SOD 5000 UNIT/0.5 ML CARP SQ SCH; -HYDROmorphone INJ 1 MG/ML SYR IV PRN; -LABETALOL HCL IV 5 MG/ML 20ML IV PRN; -LACTATED RINGER'S 1000ML 1,000 ML IV SCH; -LACTATED RINGER'S 1000ML 500 ML IV SCH; -MEPERIDINE HCL 25 MG/ML CARP IV PRN; -MoRPHine SULFATE 10 MG/ML CARP/VIAL IV PRN; -NALOXONE HCL 0.4 MG/1 ML VIAL/CARP IV PRN; -ONDANSETRON INJ 2 MG/ML 2 ML VIAL IV PRN; +OPTIRAY 320 125ml IV PRN; -PHENYLEPHRINE 100MCG/ML 5ML SYR IV PRN
--- OUTSIDE RECORDS SUMMARY | 2020-02-11 05:47 | External Medical Summary | Continuity of Care Document ---
:1950 Author Name Vishal Holcomb, Provider Address Unavailable Unavailable , Care Team Providers Name Role Phone Unavailable Unavailable Unavailable Dashawn Shea DO Unavailable [email or web address] Unavailable Unavailable Unavailable Unavailable Unavailable Problems History of colostomy reversal (V45.89) (Z98.890) Peritonitis (567.9) (K65.9) Rectal bleeding (569.3) (K62.5) Chronic neck pain (723.1) (M54.2) GERD (gastroesophageal reflux disease) (530.81) (K21.9) Hypertension (401.9) (I10) Allergies and Adverse Reactions No Known Drug Allergies (Allergy) Shellfish (Allergy) Medications Ferrous Sulfate 325 (65 Fe) MG Oral Tablet; TAKE 1 TAB LET DAILY Zhang LUNA Start: 15-Nov-2017 Refills: 0 HYDROcodone-Acetaminophen 5-325 MG Oral Tablet; TAKE 1 TABLET EVERY 6 HOURS NEEDED FOR PAIN. DO Dashawn Shea Start: 02-Feb-2018 Quantity: 35 Refills: 0 Procedures History of colostomy Status: Completed 2 04-Oct-2017 0:00 History of small bowel resection Status: Completed 24-Oct-2017 0:00 History of cataract surgery Status: Comp leted History of tooth extraction Status: Comp leted History of esophagogastroduodenoscopy St atus: Completed History of colonoscopy Status: Completed History of sinus surgery Status: Complet ed History of colectomy subtotal Status: Co mpleted 13-Jan-2018 0:00 History of Colostomy Closure Status: Com pleted 13-Jan-2018 0:00 Immunizations Immunizations not documented Family History Father Family history of acute myocardial infarction (V17.3) (Z82.4 9) Status: Active Mother Family history of malignant neoplasm (V16.9) (Z80.9) Status: Active Social History - Smoking Status Never smoked tobacco Plan of Treatment Planned Observations Planned Goals not documented Results No Known Results Results not documented Encounters Appointment; Dashawn Shea DO 02-Mar-2018 15:10 Encounter Diagnosis: Problem not documented Appointment; Dashawn Shea DO 16-Feb-2018 13:00 Encounter Diagnosis: Problem not documented
--- NOTE | 2020-02-11 05:53 | Emergency Department Note ---
Impression & Plan Stroke, Slurred speech, Ataxia, Hypomagnesemia ED Provider Note Name: HERBERT TEJEDA Age: 69 Sex: M Arrives Via: Ambulance Informant: Patient, EMS ED Provider: Tad Velarde MD Chief Complaint: Slurred Speech Impression: Stroke Slurred Speech Ataxia Hypomagnesemia Medical Decision Makin yr old male on no anticoagulation with history HTN, GERD, Diverticulitis, Migraines and father who had CAD arrvies with acute slurred speech, ataxia, and vertiginous symptoms. Mild symptoms on exam in addition to generalized weakness without focal weakness. No headache, fevers, nor meningeal findings. Mildly HTN on arrival. Initial CT head negative with CTA showing posterior vert stenosis and some small aneurysms throughout. Dr Capo Hyatt TeleNeur ologist aware early, requested TPA be mixed and evaluated patient. Following extended evaluation feels that TPA risks would outweigh benefits. I held off on giving aspirin due to my concerns he would have dysphagia issues and awaiting dysphagia exam. Patient evaluate dmultiple times throughout entire care and keep aware of findings/plan. Prior Medical Record and Triage/Nursing Notes reviewed by Me Additional history obtained from record, EMS Differentials:Stroke, ICH, Infection, dehydration, metabolic abnormality, hypo/hyperglycemia, electrolyte disturbance, anemia, hypoxia, cardiac sources, toxicologic, neurologic, as well as other pathologies. Vital Signs: reviewed and remarkable for HTN Interventions: Saline Lock, NSS bolus Labs:Reviewed and remarkable for hypomagnesemia Imaging: [employer] Radiologist interpretation reviewed by me: "CT HEAD: No intracranial hemorrhage. Chronic small vessel ischemic change. No CT evident evolving territorial infarction. No mass effect or edema. CTA HEAD: No large vessel occlusion. Severe stenosis of the proximal left vertebral artery. The right vertebral artery is patent. Basilar artery is patent. Mild diffuse stenosis of the right EXTRACTIVE METALLURGIST. Mild diffuse stenosis of the left EXTRACTIVE METALLURGIST. Atherosclerosis of the right ICA with mild stenosis. 1.3 mm medial outpouching of the right supraclinoid ICA, question superior hypophyseal artery aneurysm. The left ICA is patent. MCAs and ACAs are patent. 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 Hypoplastic right P1 segment of the VENU. CTA NECK: Mild stenosis of the left distal CCA. 10 percent stenosis of the left proximal ICA using NASCET criteria. Mild intimal thickening of the right CCA with no significant stenosis. The right ICA is patent. Bilateral ECAs and cervical vertebral arteries are patent. The right cervical vertebral artery is dominant. Radiologist: Charlie Mortensen M.D." EKG:Per My Interpretation: Indication Stroke: NSR 90 bpm, qtc 455. Poor baseline. No Ectopy. No Ischemia. Compared to EKG 01/07/20, no significant morales ges. Cardiac/Tele Monitoring: Cardiac Monitoring: An Order was placed for continuous cardiac monitoring. The monitor shows a rate of 90 with a normal sinus rhythm. Consults:Dr Capo Hyatt Telestroke - Do not give TPA Dr Melany Hardwick Hospitalist aware Plan: Disposition:Hospitalization. Condition: Fair Blood pressure:Elevated - Referred to Hospitalist History of Present Illness:69 / Male arrives for evaluation of slurred speech. Patient with acute onset slurred speech at 2am. Notes he was awake at this time already and about to go to bed. Associated with mild dizziness/lightheadedness and generalized weakness. Denies focal weakness, vision changes, headache, neck pain, loss bowel/bladder nor other symptoms. No fall nor head injury. No drug nor alcohol use. Symptoms gradually worsening since 2am. Denies previous stroke nor CAD. As symptoms worsening EMS called. No interventions en route. States he felt fine prior to this. No sick contacts. Denies recent chest pain, sob, palpitations, nausea, vomiting, nor other symptoms. No medications taken for this. Is on no blood thinners and does not take aspirin. ROS: See above HPI for pertinent positives & negatives. A total of 10 systems reviewed and were otherwise negative. Past Medical History:HTN, Migraines, GERD, Diverticulitis Past Surgical History:Cataract surg, ex lap, sinus surge, colectomy, small b owel resection Family History:Mother CA, Father CAD Social History:Retired, lives with sig other, no etoh, no smoking Home Medications:Baclofen, fiorect, flonase, lisinopril/hctz, magnesium, potassium Allergies:shrimp Vitals:Blood Pressure: 143/85, Pulse 80, RR 18, T 3.6C, O2 97% on RA Physical Exam: GENERAL: Patient is anxious appearing and in mild distress. EYES: No scleral icterus, unremarkable pupils. ENT: Mucous membranes moist, no nasal congestion. NECK: No masses appreciated, nomeningismus, trachea is midline. RESPIRATORY: No dyspnea. Clear to auscultation and equal bilaterally. No wheeze, no rhonchi. CARDIOVASCULAR: Regular rate and rhythm.No murmurs, rubs, gallops appreciated. GASTROINTESTINAL: Abdomen soft, non-tender, no peritonitis.Bowel sounds positive.No masses appreciated. BACK: No midline tenderness, no CVA tenderness EXTREMITIES: Normal motion all extremities, no cyanosis, no edema. NEUROLOGIC: Diffuse generalized weakness. Able to stand on own with mild unsteady. Mild ataxia with hand but able to sign name. Slight word finding ability and slurred speech, but some words clear. Mild horizontal nystagmus to left. No cranial nerve deficits. Alert and oriented, no acute motor or sensory deficits, no focal weakness appreciated. SKIN: No rash, no jaundice, no diaphoresis. PSYCH: Appropriate GCS: 15 ED Course: Times/Reassessments: 5:44am Initial evaluation by me at CT 5:49am Neurologist paged 5:54am Neuro consult 5:57am: Neuro advise mix TPA 5:59am: TPA order placed (weight of patient required) 6:03am: Patient gives verbal consent to TPA pending neurologist evaluation 6:07am: Stable 6:10am: Dr Scanlon on video tele with patient 6:22am: Dr Scanlon notes no TPA to be given 6:31am: Dr [facility] Hospitalist consulted and aware of patient 6:33am: Patient stable and comfortable with plan. 6:48am: Stable, continued mild symptoms. Critical Care: I have personally spent 45 minutes of critical care time in the direct management of this patient. Acute stroke with TPA mixed, but not given and extensive conversation and management of patient. This was a life/limb threatening event. This 45 minutes is in excess of all separately billable procedures. Tad Velarde MD Past Med/Surg History Medical History HTN (hypertension) (Chronic) Hypomagnesemia (Acute) Surgical History (Updated 02/11/20 @ 11:21 by Jael Cunningham MD) Dilation of duodenum (Resolved) "2011" History of colostomy reversal S/P exploratory laparotomy (Resolved) "10/24/17: partial transverse colectomy, partial small bowel resection, drainage of multiple abscesses and creation of a colostomy and mucous fistula" Social History Preferred Language: Malawian Communication Ability: Effective Firmware Engineer Required: No Beliefs That Will Affect Care: None Current Living Situation: Spouse Other Information That Helps Us Care for You: No Feels Safe at Home: Yes Safety Concerns: Feels Safe At This Time Smoking Status: Former smoker Do You Dip or Chew Tobacco: No ; Second Hand Exposure: No ; Tobacco Cessation Education Requested by Patient: No Hx Alcohol Use: No Hx Substance Use: No Allergies Allergies Allergy/AdvReac Type Severity Reaction Status Date / Time shrimp AdvReac Unknown GI SYMPTOMS Verified 02/11/20 06:09 Home Meds Home Medications Medication Instructions Recorded Confirmed baclofen 10 mg PO TID PRN 02/11/20 02/11/20 [id number] 1 tab PO Q6H PRN 02/11/20 02/11/20 dicyclomine 20 mg PO QID PRN 02/11/20 02/11/20 ketoconazole 1 applic TOPICAL DAILY 02/11/20 02/11/20 lisinopril-hydrochlorothiazide 0.5 tab PO DAILY 02/11/20 02/11/20 Results & Data (ED) Vital Signs Vital Signs - 24 hr 02/11/20 06:00 02/11/20 06:15 02/11/20 06:30 Temperature 36.6 C Temperature Source Oral Pulse Rate 87 84 80 Pulse Rate [Left Finger] Pulse Rate from SpO2 Sensor 85 82 Pulse Rhythm Regular Pulse Strength Normal Respiratory Rate 18 Respiratory Effort / Characteristics Non-Labored Respiratory Depth Normal Blood Pressure 170/88 H 143/96 H 143/85 H Blood Pressure [Left Arm] Blood Pressure Mean 115 112 111 Blood Pressure Mean [Left Arm] Blood Pressure Position Lying Pulse Oximetry 98 98 97 Oxygen Delivery Method Room Air Room Air Room Air Sepsis Recent Fever Within 48 Hours No Sepsis Action Taken by Nursing No Action Required 02/11/20 07:11 02/11/20 08:05 Temperature Temperature Source Pulse Rate Pulse Rate [Left Finger] 82 80 Pulse Rate from SpO2 Sensor Pulse Rhythm Pulse Strength Respiratory Rate 16 20 Respiratory Effort / Characteristics Non-Labored Respiratory Depth Normal Blood Pressure Blood Pressure [Left Arm] 160/84 H 156/91 H Blood Pressure Mean Blood Pressure Mean [Left Arm] 109 112 Blood Pressure Position Pulse Oximetry 96 97 Oxygen Delivery Method Room Air Sepsis Recent Fever Within 48 Hours Sepsis Action Taken by Nursing Laboratory Data Result diagrams: 02/11/20 06:04 02/11/20 06:04 Lab Results 02/11/20 02/11/20 02/11/20 Range/Units 05:58 06:04 06:04 WBC 6.30 (4.8-10.8) K/uL RBC 4.14 L (4.7-6.1) M/uL Hgb 13.5 L (14.0-18.0) g/dL Hct 39.9 L (42-52) % MCV 96.4 (80-100) fL MCH 32.6 (25-34) pg MCHC 33.8 (32-36) g/dL RDW Std Deviation 45.6 (36.4-46.3) fL RDW Coeff of Ceci 13.0 (11.5-14.5) % Plt Count 117 L (130-400) K/uL MPV 8.6 (7.4-10.4) fL Immature Gran % (Auto) 0.2 % Neut % (Auto) 72.0 % Lymph % (Auto) 21.3 % [place] % (Auto) 4.9 % Eos % (Auto) 1.4 % Baso % (Auto) 0.2 % Immature Gran # (Auto) 0.01 (0.00-0.02) K/uL Neut # (Auto) 4.54 (1.4-6.5) K/uL Lymph # (Auto) 1.34 (1.2-3.4) K/uL [place] # (Auto) 0.31 (0.11-0.59) K/uL Eos # (Auto) 0.09 (0-0.5) K/uL Baso # (Auto) 0.01 (0-0.2) K/uL PT (9.0-12.0) Seconds INR (0.9-1.1) APTT (21.0-31.0) Seconds PTT Ratio Sodium (136-145) mmol/L Potassium (3.5-5.1) mmol/L Chloride (98-107) mmol/L Carbon Dioxide (21-32) mmol/L Anion Gap (3-11) BUN (7-18) mg/dl Creatinine (0.6-1.4) mg/dl Est Cr Clr Drug Dosing ml/min Est GFR ( Amer) Est GFR (Non-Af Amer) BUN/Creatinine Ratio (10-20) Glucose (70-99) mg/dl POC Glucose 174 H (70-99) mg/dl Calcium (8.5-10.1) mg/dl Magnesium (1.8-2.4) mg/dl Total Bilirubin (0.2-1) mg/dl AST (15-37) U/L ALT (12-78) U/L Alkaline Phosphatase (45-117) U/L Troponin I (0-0.045) ng/ml Total Protein (6.4-8.2) gm/dl Albumin (3.4-5.0) gm/dl Globulin (2.5-4.0) gm/dl Albumin/Globulin Ratio (0.9-2) Ethyl Alcohol mg/dL (0-3) mg/dl Blood Type O Positive Antibody Screen NEGATIVE 02/11/20 02/11/20 02/11/20 Range/Units 06:04 06:04 06:04 WBC (4.8-10.8) K/uL RBC (4.7-6.1) M/uL Hgb (14.0-18.0) g/dL Hct (42-52) % MCV (80-100) fL MCH (25-34) pg MCHC (32-36) g/dL RDW Std Deviation (36.4-46.3) fL RDW Coeff of Ceci (11.5-14.5) % Plt Count (130-400) K/uL MPV (7.4-10.4) fL Immature Gran % (Auto) % Neut % (Auto) % Lymph % (Auto) % [place] % (Auto) % Eos % (Auto) % Baso % (Auto) % Immature Gran # (Auto) (0.00-0.02) K/uL Neut # (Auto) (1.4-6.5) K/uL Lymph # (Auto) (1.2-3.4) K/uL [place] # (Auto) (0.11-0.59) K/uL Eos # (Auto) (0-0.5) K/uL Baso # (Auto) (0-0.2) K/uL PT 11.8 (9.0-12.0) Seconds INR 1.1 (0.9-1.1) APTT 24.8 (21.0-31.0) Seconds PTT Ratio 0.9 Sodium 138 (136-145) mmol/L Potassium 3.7 (3.5-5.1) mmol/L Chloride 107 (98-107) mmol/L Carbon Dioxide 22 (21-32) mmol/L Anion Gap 9.0 (3-11) BUN 14 (7-18) mg/dl Creatinine 0.86 (0.6-1.4) mg/dl Est Cr Clr Drug Dosing 90.3 ml/min Est GFR ( Amer) 101.8 Est GFR (Non-Af Amer) 87.9 BUN/Creatinine Ratio 16.4 (10-20) Glucose 174 H (70-99) mg/dl POC Glucose (70-99) mg/dl Calcium 8.0 L (8.5-10.1) mg/dl Magnesium 1.7 L (1.8-2.4) mg/dl Total Bilirubin 0.2 (0.2-1) mg/dl AST 15 (15-37) U/L ALT 23 (12-78) U/L Alkaline Phosphatase 112 (45-117) U/L Troponin I < 0.015 (0-0.045) ng/ml Total Protein 6.6 (6.4-8.2) gm/dl Albumin 3.2 L (3.4-5.0) gm/dl Globulin 3.4 (2.5-4.0) gm/dl Albumin/Globulin Ratio 0.9 (0.9-2) Ethyl Alcohol mg/dL < 3.0 (0-3) mg/dl Blood Type Antibody Screen Administered Medications Acetaminophen/Butalbital/Caffeine (Fioricet) 1 tab PO Q6H PRN PRN Reason: Pain Stop: 03/12/20 10:31 Last Admin: 02/11/20 13:03 Dose: 1 tab Documented by: [id number] Aspirin (Ecotrin Ectab) 81 mg PO QAM [facility] Stop: 03/12/20 10:31 Last Admin: 02/11/20 12:08 Dose: 81 mg Documented by: [id number] Baclofen (Lioresal) 10 mg PO TID PRN PRN Reason: Muscle Spasm Stop: 03/12/20 10:31 Last Admin: 02/11/20 20:17 Dose: 10 mg Documented by: [id number] Admin: 02/11/20 12:13 Dose: 10 mg Documented by: [id number] Dicyclomine HCl (Bentyl) 20 mg PO QID PRN PRN Reason: Abdominal Pain Stop: 03/12/20 10:31 Last Admin: 02/11/20 20:39 Dose: 20 mg Documented by: [id number] Admin: 02/11/20 12:09 Dose: 20 mg Documented by: [id number] Enoxaparin Sodium (Lovenox) 40 mg SQ QPM [facility] Stop: 03/12/20 20:59 Last Admin: 02/11/20 20:12 Dose: 40 mg Documented by: [id number] Sodium Chloride (Nss 1000ml) 1,000 mls @ 150 mls/hr IV .Q6H40M [facility] Stop: 03/12/20 06:29 Last Admin: 02/11/20 20:18 Dose: 150 mls/hr Documented by: [id number] Infusion: 02/11/20 20:18 Dose: 150 mls/hr Documented by: [id number] Admin: 02/11/20 14:30 Dose: 150 mls/hr Documented by: [id number] Infusion: 02/11/20 13:09 Dose: 150 mls/hr Documented by: [id number] Admin: 02/11/20 06:28 Dose: 150 mls/hr Documented by: [id number] Discontinued Medications Alteplase, Recombinant (Activase For Stroke) 1 ea IV NOW STA; Protocol Stop: 02/11/20 05:59 Last Admin: 02/11/20 06:24 Dose: Not Given Documented by: [id number] Aspirin (Aspirin) 300 mg NE ONE ONE Stop: 02/11/20 08:59 Last Admin: 02/11/20 09:12 Dose: 300 mg Documented by: [id number] Alteplase, Recombinant 8.2 mg/ (Syringe) 8.2 mls @ 8.2 mls/min IV ONCE ONE Stop: 02/11/20 06:09 Last Admin: 02/11/20 06:24 Dose: Not Given Documented by: [id number] Alteplase, Recombinant 73 mg/ (EMPTY BAG) 73 mls @ 73 mls/hr IV ONCE ONE Stop: 02/11/20 06:10 Last Admin: 02/11/20 06:24 Dose: Not Given Documented by: [id number] Sodium Chloride (Nss 1000ml) 500 mls @ 999 mls/hr IV .Q31M ONE Stop: 02/11/20 06:55 Last Infusion: 02/11/20 10:40 Dose: 0 mls/hr Documented by: [id number] Admin: 02/11/20 06:27 Dose: 999 mls/hr Documented by: [id number] Magnesium Sulfate/Dextrose (Magnesium Sulfate / D5w) 1 gm in 100 mls @ 100 mls/hr IV NOW STA Stop: 02/11/20 07:43 Last Infusion: 02/11/20 08:06 Dose: 0 mls/hr Documented by: [id number] Admin: 02/11/20 07:00 Dose: 100 mls/hr Documented by: [id number] Ioversol (Optiray 320 125ml) 120 ml IV ONCE PRN PRN Reason: Interaction Checking Stop: 02/15/20 05:43 Last Admin: 02/11/20 05:54 Dose: 120 ml Documented by: [id number] Discharge Plan Visit Data *Final* Discharge Date/Time: 02/11/20 09:35 Chief Complaint: Stroke/CVA Symptoms Stated Complaint: CVA ED Provider: Tad Velarde Discharge Problem: Stroke, Slurred speech, Ataxia, Hypomagnesemia Patient Disposition: Admitted As Inpatient Discharge Instructions Interventions: ED Discharge Assessment Last Done: 02/11/20 09:35 Discharge Problem: Stroke Qualifiers: CVA mechanism: embolism Precerebral and cerebral artery: posterior cerebral artery Laterality of affected vessel: unspecified Qualified Code(s): I63.439 - Cerebral infarction due to embolism of unspecified posterior cerebral artery
[2020-02-11] MEDS ORDERED: TPA for Stroke IV STA (05:58)
[2020-02-11] MEDS ORDERED: Alteplase Bolus 8.2 MG in SYRINGE 0 ML IV ONE (06:08)
[2020-02-11] MEDS ORDERED: PRIMARY PLUMSET, PE LINED TUBING, 113 IN, NON-DEHP (2260-0500) IV ONE (06:09)
[2020-02-11] MEDS ORDERED: ALTEPLASE IV ONE (06:09)
[2020-02-11] MEDS ORDERED: RECOMBINANT IV ONE (06:09)
[2020-02-11 06:23] LABS: Basophils # (auto) 0.01 K/uL (0-0.2); Basophils % (auto) 0.2 %; Eosinophils # (auto) 0.09 K/uL (0-0.5); Eosinophils % (auto) 1.4 %; Hematocrit (blood only) 39.9 % (42-52); Hemoglobin 13.5 g/dL (14.0-18.0); Immature Granulocytes # (auto) 0.01 K/uL (0.00-0.02); Immature Granulocytes % (auto) 0.2 %; Lymphocytes # (auto) 1.34 K/uL (1.2-3.4); Lymphocytes % (auto) 21.3 %; Mean Corpuscular Hemoglobin 32.6 pg (25-34); Mean Corpuscular Hgb Conc 33.8 g/dL (32-36); Mean Corpuscular Volume 96.4 fL (80-100); Mean Platelet Volume 8.6 fL (7.4-10.4); Monocytes # (auto) 0.31 K/uL (0.11-0.59); Monocytes % (auto) 4.9 %; Neutrophils # (auto) 4.54 K/uL (1.4-6.5); Platelet Count 117 K/uL (130-400); RDW Standard Deviation 45.6 fL (36.4-46.3); Red Blood Count 4.14 M/uL (4.7-6.1)
[2020-02-11] MEDS ORDERED: SODIUM CHLORIDE 0.9% 1000ML 500 ML IV ONE (06:25)
[2020-02-11] MEDS: SODIUM CHLORIDE 0.9% 1000ML 1,000 ML IV SCH ×3 (06:28→20:18)
[2020-02-11 06:30] LABS: INR 1.1 (0.9-1.1); Partial Thromboplastin Ratio 0.9; Partial Thromboplastin Time 24.8 Seconds (21.0-31.0); Prothrombin Time 11.8 Seconds (9.0-12.0)
[2020-02-11 06:39] LABS: Alanine Aminotransferase 23 U/L (12-78); Albumin Level 3.2 gm/dl (3.4-5.0); Aspartate Aminotransferase 15 U/L (15-37); BUN Creatinine Ratio 16.4 (10-20); Blood Urea Nitrogen 14 mg/dl (7-18); Carbon Dioxide 22 mmol/L (21-32); Chloride 107 mmol/L (98-107); Creatinine Clr Calc Pharmacy 90.3 ml/min; Est GFR (African American) 101.8; Est GFR (Non-African American) 87.9; Glucose 174 mg/dl (70-99); Magnesium 1.7 mg/dl (1.8-2.4); Potassium 3.7 mmol/L (3.5-5.1); Sodium 138 mmol/L (136-145)
[2020-02-11 06:43] LABS: Albumin Globulin Ratio 0.9 (0.9-2); Alkaline Phosphatase 112 U/L (45-117); Bilirubin,Total 0.2 mg/dl (0.2-1); Globulin 3.4 gm/dl (2.5-4.0); Total Protein 6.6 gm/dl (6.4-8.2); Troponin I < 0.015 ng/ml (0-0.045)
[2020-02-11] MEDS ORDERED: MAGNESIUM SULFATE / D5W 1 GM/100 ML BAG IV STA (06:44)
--- NOTE | 2020-02-11 06:51 | CT Scan Report ---
CT OF THE HEAD WITHOUT CONTRAST CLINICAL HISTORY: Stroke evaluation COMPARISON STUDY: No previous studies for comparison. TECHNIQUE: Helical axial images of the head were obtained without IV contrast. Automated exposure con trol was utilized for the study. A dose lowering technique was utilized adhering to the principles o f ALARA. FINDINGS: No acute intracranial hemorrhage, midline shift or mass effect is present. The ventricular system is unremarkable. The basilar cisterns are patent. Mild volume loss is noted. Mild white matter hypodensity suggests small vessel disease. No extra-axial collections are present. There are no find ings to suggest acute dural sinus thrombosis or acute territorial infarct. No significant calvarial a bnormalities are present. Visualized portions of the sinuses and mastoid air cells are clear. IMPRESSION: No acute intracranial findings. ACT 112: Negative or not required by law. Electronically signed by: Shon Palencia M.D. 02/11/2020 6:49 AM
--- NOTE | 2020-02-11 06:57 | CT Scan Report ---
CT ANGIOGRAPHY OF THE NECK WITH CONTRAST CLINICAL HISTORY: Stroke evaluation COMPARISON STUDY: No previous studies for comparison. Technique: CT angiography of the carotid and vertebral arteries was obtained using [employer] 320 IV and 3D reconstruction on an independent workstation. NASCET criteria was utilized. Automated exposure c ontrol was utilized for the study. A dose lowering technique was utilized adhering to the principles of ALARA. CT DOSE: 1313.62 mGy.cm Findings: The lung apices are clear. Dilatation of visualized portions of the ascending aorta, measur ing up to 4.5 cm is noted. No cervical lymphadenopathy. No cervical spine fracture is noted. The bila teral vertebral arteries are patent. The right common carotid and cervical internal carotid arteries are patent. There is moderate plaque within the proximal left internal carotid artery with 10% stenos is. There is no dissection within the major vessels of the neck. IMPRESSION: No severe stenosis stenosis within the major vessels within neck. Moderate plaque within the proximal left internal carotid artery with 10% stenosis. ACT 112: Negative or not required by law. Electronically signed by: Shon Palencia M.D. 02/11/2020 6:56 AM
--- NOTE | 2020-02-11 07:04 | CT Scan Report ---
CTA ANGIOGRAPHY OF THE HEAD CLINICAL HISTORY: Stroke evaluation COMPARISON STUDY: No previous studies for comparison. TECHNIQUE: Helical axial images of the head were obtained following uneventful intravenous administr ation of 120 cc of Optiray 320. Sagittal and coronal reconstructions were viewed as well as maximal i ntensity projections on an independent 3-D workstation. Automated exposure control was utilized for the study. A dose lowering technique was utilized adhering to the principles of ALARA. FINDINGS: No acute intracranial hemorrhage, midline shift or mass effect is present. Ventricular syst em is normal. The basilar cisterns are patent. There is moderate plaque within the right cavernous ca rotid with mild stenosis. Note is made of a 2.6 mm aneurysm arising from the junction of the left ant erior cerebral artery and the anterior communicating artery. There is no central vessel occlusion. Th ere is no intraluminal thrombus. Note is made of severe stenosis of the proximal intracranial portion of the left vertebral artery. The basilar artery is patent. The bilateral posterior cerebral arterie s are patent. IMPRESSION: 1. No abrupt vessel cut off or intraluminal thrombus. 2. 2.6 mm aneurysm arising from the junction of the left anterior cerebral artery and anterior commun icating artery. 3. 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 Otherwise, mild multifocal stenoses within the intracranial vessels. ACT 112: Negative or not required by law. Electronically signed by: Shon Palencia M.D. 02/11/2020 7:03 AM
--- NOTE | 2020-02-11 08:48 | History & Physical Report ---
Date of Service February 11, 2020 Assessment & Plan (1) Stroke-like symptoms: (2) Slurred speech: (3) Ataxia: Present on admission with slurred speech/disoriented, lightheadedness and generalized weakness that occurred this morning Need to r/o acute CVA Stroke alert called on presentation, but no TPA given due to improvement in his symptoms CT head showed no acute intracranial findings. 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 CTA neck showed no severe stenosis stenosis within the major vessels within neck. Moderate plaque within the proximal left internal carotid artery with 10% stenosis. PO aspirin did not administer since pt said his "throat felt thick" Aspirin 300mg pr was given Will get MRA/MRI head Will get a resting ECHO Neuro consult PT/OT/Speech eval Once ok to swallow by speech will start Aspirin 81 mg daily Will check fasting lipid profile Continue neuro check as per protocol Will monitor on tele for any arrhythmia Aspiration precaution Hypertension BP elevated in the ER Will hold Lisinopril/HCTZ for now to allow permissive Hypertension Continue monitor BP Nausea/Vomiting Mostly related to dizziness Will add prn antiemetic Symptoms improve Chronic Abdominal pain Hx of Colectomy in 2018 and takedown colostomy Pain controlled with floricet and baclofen Hypomagnesemia Mag on admission 1.7 Mg replaced in the ER Continue monitor Elevated glucose Will check HbA1c Denies any history of DM Continue monitor BS DVT px on Lovenox subq Code Status DNR (4) HTN (hypertension): History of Present Illness Chief Complaint: Stroke like symptoms Primary Care Provider: Francois Spann MD 69 yo Male with PMH of HTN, GERD, SBO with reverse colostomy presented to to ER with slurred speech. Pt said that last night around 1 am he felt the urge to go to bed. He said that he woke up around 4am to use the bathroom and felt disoriented, dizzy and general weakness. He said that his gait was unsteady while walking to the bathroom when he had to use the wall for support. He said that he tried to speak while in the bathroom and realized his speech was slurred and had difficulty to articulate. He said that he felt nausea and vomiting once at home and once in the ER. He said that he had some vision difficulty. He said that he was about to walk to his 's bedroom to let her know that it seemed like he was having a stroke. He said the called EMS. Stroke alert was called and no TPA given since his symptoms were improved. Aspirin was not administered because pt felt some thickness in his throat. Pt said that he never experienced any symptoms like that in the past. Currently pt said that he feels much better. Currently denies any chest pain, palpitation, dizziness, SOB, fever. Denies any sick contact or any contact with anyone positive for COVID-19. No recent travelling. Allergies Allergy/AdvReac Type Severity Reaction Status Date / Time shrimp AdvReac Unknown GI SYMPTOMS Verified 02/11/20 06:09 Home Medications Home Medications Medication Instructions Recorded Confirmed Type baclofen 10 mg PO TID PRN 02/11/20 02/11/20 History zbhbeoizke-bngyifosclepa-dfjo 1 tab PO Q6H PRN 02/11/20 02/11/20 History dicyclomine 20 mg PO QID PRN 02/11/20 02/11/20 History ketoconazole 1 applic TOPICAL DAILY 02/11/20 02/11/20 History lisinopril-hydrochlorothiazide 0.5 tab PO DAILY 02/11/20 02/11/20 History Past Med/Surg History Medical History HTN (hypertension) (Chronic) Hypomagnesemia (Acute) Surgical History (Updated 02/11/20 @ 11:21 by Jael Cunningham MD) Dilation of duodenum (Resolved) "2011" History of colostomy reversal S/P exploratory laparotomy (Resolved) "10/24/17: partial transverse colectomy, partial small bowel resection, drainage of multiple abscesses and creation of a colostomy and mucous fistula" Social History Preferred Language: Singaporean Communication Ability: Effective Director Hardware Required: No Beliefs That Will Affect Care: None Current Living Situation: Spouse Other Information That Helps Us Care for You: No Feels Safe at Home: Yes Safety Concerns: Feels Safe At This Time Smoking Status: Former smoker Do You Dip or Chew Tobacco: No ; Second Hand Exposure: No ; Tobacco Cessation Education Requested by Patient: No Hx Alcohol Use: No Hx Substance Use: No Review of Systems Review of Systems: All systems reviewed & are unremarkable except as noted in HPI & below Physical Exam Physical Exam: General- No acute distress Head- atraumatic Eyes- PERRL, EOMI, ENT- oropharynx clear Neck- supple, no JVD Lungs- clear to auscultation Heart- regular rhythm; no murmur Abdomen- normal bowel sounds, soft, +mild tenderness, +umbelical hernia, +old healing surgical scars Extremities- no calf tenderness Neuro- alert, oriented x 3; PERRL, EOMI; no facial palsy; no dysarthria, finger to nose intake, sensation and strength intact Skin- warm & dry Results & Data Results & Data ([facility]) Vital Signs (Past 12 Hours) Vital Signs Temp Pulse Pulse Resp BP BP Pulse Ox 02/11/20 08:05 80 20 156/91 H 97 02/11/20 07:11 82 16 160/84 H 96 02/11/20 06:30 80 143/85 H 97 02/11/20 06:15 84 143/96 H 98 02/11/20 06:00 36.6 C 87 18 170/[address] OF THE HEAD WITHOUT CONTRAST CLINICAL HISTORY: Stroke evaluation COMPARISON STUDY: No previous studies for comparison. TECHNIQUE: Helical axial images of the head were obtained without IV contrast. Automated exposure control was utilized for the study. A dose lowering technique was utilized adhering to the principles of ALARA. FINDINGS: No acute intracranial hemorrhage, midline shift or mass effect is present. The ventricular system is unremarkable. The basilar cisterns are patent. Mild volume loss is noted. Mild white matter hypodensity suggests small vessel disease. No extra-axial collections are present. There are no findings to suggest acute dural sinus thrombosis or acute territorial infarct. No significant calvarial abnormalities are present. Visualized portions of the sinuses and mastoid air cells are clear. IMPRESSION: No acute intracranial findings. ACT 112: Negative or not required by law. Electronically signed by: Shon Palencia M.D. 02/11/2020 6:49 AM Dictated: 02/11/20644 Transcribed: 02/11/20644 CTA ANGIOGRAPHY OF THE HEAD CLINICAL HISTORY: Stroke evaluation COMPARISON STUDY: No previous studies for comparison. TECHNIQUE: Helical axial images of the head were obtained following uneventful intravenous administration of 120 cc of Optiray 320. Sagittal and coronal reconstructions were viewed as well as maximal intensity projections on an independent 3-D workstation. Automated exposure control was utilized for the study. A dose lowering technique was utilized adhering to the principles of ALARA. FINDINGS: No acute intracranial hemorrhage, midline shift or mass effect is present. Ventricular system is normal. The basilar cisterns are patent. There is moderate plaque within the right cavernous carotid with mild stenosis. 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 There is no central vessel occlusion. There is no intraluminal thrombus. Note is made of severe stenosis of the proximal intracranial portion of the left vertebral artery. The basilar artery is patent. The bilateral posterior cerebral arteries are patent. IMPRESSION: 1. No abrupt vessel cut off or intraluminal thrombus. 2. 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 3. 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 Otherwise, mild multifocal stenoses within the intracranial vessels. ACT 112: Negative or not required by law. Electronically signed by: Shon Palencia M.D. 02/11/2020 7:03 AM Dictated: 02/11/2057 Transcribed: 02/11/20656 CT ANGIOGRAPHY OF THE NECK WITH CONTRAST CLINICAL HISTORY: Stroke evaluation COMPARISON STUDY: No previous studies for comparison. Technique: CT angiography of the carotid and vertebral arteries was obtained using OptiraShaka 320 IV and 3D reconstruction on an independent workstation. NASCET criteria was utilized. Automated exposure control was utilized for the study. A dose lowering technique was utilized adhering to the principles of ALARA. CT DOSE: 1313.62 mGy.cm Findings: The lung apices are clear. Dilatation of visualized portions of the ascending aorta, measuring up to 4.5 cm is noted. No cervical lymphadenopathy. No cervical spine fracture is noted. The bilateral vertebral arteries are patent. The right common carotid and cervical internal carotid arteries are patent. There is moderate plaque within the proximal left internal carotid artery with 10% stenosis. There is no dissection within the major vessels of the neck. IMPRESSION: No severe stenosis stenosis within the major vessels within neck. Moderate plaque within the proximal left internal carotid artery with 10% stenosis. ACT 112: Negative or not required by law. Electronically signed by: Shon Palencia M.D. 02/11/2020 6:56 AM Dictated: 02/11/20 0650 Transcribed: 02/11/2050
[2020-02-11] MEDS ORDERED: ASPIRIN 300 MG SUPP PR ONE (08:58)
[2020-02-11] MEDS ORDERED: PHARMACIST DISCHARGE MED REC CONSULT PRN (10:32)
[2020-02-11] MEDS: ASPIRIN 81 MG ECTAB PO SCH (12:08)
[2020-02-11] MEDS: DICYCLOMINE HCL 20 MG TAB PO PRN ×2 (12:09→20:39)
[2020-02-11] MEDS: BACLOFEN 10 MG TAB PO PRN ×2 (12:13→20:17)
[2020-02-11] MEDS: BUTALBITAL/ACETAMIN/CAFFEINE TAB PO PRN ×2 (13:03→23:37)
--- NOTE | 2020-02-11 14:02 | Neurology Consultation ---
Date of Consultation February 11, 2020 Assessment & Plan (1) Acute vestibular syndrome: A 69 year old M with Hx of HTN and migraines admitted with acute vestibular syndrome. Now resolved. Differnential diagnosis include inner ear Vs vestibular migraine Vs TIA (less likely). CTA head and neck showed intracranial left vertebral stenosis. MRI negative for ischemic stroke. PAtient back to baseline. Will start ASA 81 mg daily and Lipitor 40 mg daily for possible TIA. SBP < 140, DBP<90. Follow up with neuro in 8 weeks. History of Present Illness Attending Physician: Jael Cunningham MD History of Present Illness A 69-year-old male past medical history hypertension and migraine headaches presented to the ED for episode of slurred speech, Nausea, vertigo, weakness, a nd pre syncope. symptoms onset was saturaday around 2 am and progressed. EMS was called. He was noted to have mild symptom mild symptoms on exam in addition to generalized weakness. Initial CT head negative with CTA showing posterior vertebral stenosis and a small intracranial aneurysm. The decision was made not to give TPA. Patient was admitted for further evaluation of stroke. Allergies Allergy/AdvReac Type Severity Reaction Status Date / Time shrimp AdvReac Unknown GI SYMPTOMS Verified 02/11/20 06:09 Home Medications Home Medications Medication Instructions Recorded Confirmed Type baclofen 10 mg PO TID PRN 02/11/20 02/11/20 History psxtjkbszo-mpcstyjzraitq-azev 1 tab PO Q6H PRN 02/11/20 02/11/20 History dicyclomine 20 mg PO QID PRN 02/11/20 02/11/20 History ketoconazole 1 applic TOPICAL DAILY 02/11/20 02/11/20 History lisinopril-hydrochlorothiazide 0.5 tab PO DAILY 02/11/20 02/11/20 History aspirin 81 mg PO QAM 30 Days #30 tab 02/12/20 Rx atorvastatin 40 mg PO QAM 30 Days #30 tab 02/12/20 Rx Patient History Medical History HTN (hypertension) (Chronic) Hypomagnesemia (Acute) Surgical History (Updated 02/11/20 @ 11:21 by Jael Cunningham MD) Dilation of duodenum (Resolved) "2011" History of colostomy reversal S/P exploratory laparotomy (Resolved) "1/21/18: partial transverse colectomy, partial small bowel resection, drainage of multiple abscesses and creation of a colostomy and mucous fistula" Social History Preferred Language: Algerian Communication Ability: Effective Ingredient Scaler Required: No Beliefs That Will Affect Care: None Current Living Situation: Spouse Other Information That Helps Us Care for You: No Feels Safe at Home: Yes Safety Concerns: Feels Safe At This Time Smoking Status: Former smoker Do You Dip or Chew Tobacco: No ; Second Hand Exposure: No ; Tobacco Cessation Education Requested by Patient: No Hx Alcohol Use: No Hx Substance Use: No Physical Exam Physical Exam: Awake and alert. Sitting in bed. Pleasant. No distress. Speech is clear. comprehension intact. face symetric. tongue midline. EOMI. Pupils symmetric. Non nystagmus. No ataxia with finger to nose. Strength 5/5 in uppers Results & Data Vital Signs (Past 12 Hours) Vital Signs Temp Pulse Pulse Resp BP BP Pulse Ox 02/11/20 11:40 93 H 02/11/20 10:38 36.5 C 97 H 20 98 02/11/20 10:19 148/79 H 02/11/20 09:35 82 20 156/71 H 97 02/11/20 09:16 80 20 164/99 H 97 02/11/20 08:05 80 20 156/91 H 97 02/11/20 07:11 82 16 160/84 H 96 02/11/20 06:30 80 143/85 H 97 02/11/20 06:15 84 143/96 H 98 02/11/20 06:00 36.6 C 87 18 170/88 H 98 Diagnostic Findings CTA head and neck:No abrupt vessel cut off or intraluminal thrombus.2. 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 3. 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 Otherwise, mild multifocal stenoses within the intracranial vessels. MRI Brain: No evidence of acute ischemic stroke.
--- NOTE | 2020-02-11 14:31 | Magnetic Resonance Report ---
MRI OF THE BRAIN WITHOUT CONTRAST CLINICAL HISTORY: stroke like symptoms COMPARISON STUDY: Head CT and CTA of the head performed earlier today. TECHNIQUE: Utilizing a 1.5 Rosa magnet and dedicated coil, multiplanar, multiecho imaging of the bra in was performed without IV contrast. FINDINGS: There are no foci of restricted diffusion to suggest acute infarct. No acute intracranial h emorrhage, midline shift or mass effect is present. Ventricular system is unremarkable. Basilar ciste rns are patent. No extra axial collections are present. No intracranial masses are identified on this unenhanced examination. There is mild atrophy. White matter T2 hyperintense foci suggest mild small vessel disease. Calvarial signal is normal. MRA of the head will be reported separately. IMPRESSION: No acute intracranial findings. ACT 112: Negative or not required by law. Electronically signed by: Shon Palencia M.D. 02/11/2020 2:30 PM
--- NOTE | 2020-02-11 14:36 | Magnetic Resonance Report ---
MRA OF THE INTRACRANIAL CIRCULATION WITHOUT CONTRAST CLINICAL HISTORY: stroke like symptoms COMPARISON STUDY: CTA of the head February 11, 2020 5:49 AM. TECHNIQUE: Utilizing a 1.5 Rosa magnet and 3-D cdfk-ah-fephxk technique, unenhanced MRA of the intra cranial circulation was obtained. FINDINGS: Note is made of a 2.6 mm aneurysm arising from the junction of the left anterior cerebral a rtery and the anterior communicating artery. The right A1 segment is hypoplastic. Note is made of sev ere multifocal stenoses within the intracranial portion of the left vertebral artery. The right verte bral artery and basilar artery are patent. Posterior circulation is otherwise intact. No intraluminal thrombus or abrupt vessel cut off is identified. There is no evidence for dissection. IMPRESSION: 1. 2.6 mm aneurysm arising from the junction of the left anterior cerebral artery and anterior commun icating artery. 2. Severe multifocal stenoses within the intracranial portion of the left vertebral artery. ACT 112: Negative or not required by law. Electronically signed by: Shon Palencia M.D. 02/11/2020 2:34 PM
[2020-02-11] MEDS ORDERED: ENOXAPARIN INJ 40 MG/0.4 ML SYR SQ SCH (21:00)
--- NOTE | 2020-02-11 23:03 | Electrocardiogram Report ---
Test Reason : Blood Pressure : / mmHG Vent. Rate : 090 BPM Atrial Rate : 090 BPM P-R Int : 218 ms QRS Dur : 090 ms QT Int : 372 ms P-R-T Axes : 044 -48 090 degrees QTc Int : 455 ms Poor data quality, interpretation may be adversely affected Sinus rhythm with 1st degree A-V block with Premature atrial complexes Left anterior fascicular block Inferior infarct (cited on or before 30-SEP-2015) Cannot rule out Anterior infarct , age undetermined Abnormal ECG When compared with ECG of 06-JAN-2018 15:25, Minimal criteria for Anterior infarct are now Present ST now depressed in Lateral leads T wave inversion now evident in Lateral leads Confirmed by Talha Lund ([id number]) on 02/11/2020 11:03:04 PM Referred By: Confirmed By:Talha Lund
[2020-02-12] MEDS: SODIUM CHLORIDE 0.9% 1000ML 1,000 ML IV SCH ×2 (03:14→09:43)
[2020-02-12 05:53] LABS: Eosinophils # (auto) 0.06 K/uL (0-0.5); Eosinophils % (auto) 1.4 %; Hematocrit (blood only) 38.9 % (42-52); Hemoglobin 12.8 g/dL (14.0-18.0); Immature Granulocytes # (auto) 0.02 K/uL (0.00-0.02); Immature Granulocytes % (auto) 0.5 %; Lymphocytes # (auto) 1.04 K/uL (1.2-3.4); Lymphocytes % (auto) 24.8 %; Mean Corpuscular Hemoglobin 31.8 pg (25-34); Mean Corpuscular Hgb Conc 32.9 g/dL (32-36); Mean Corpuscular Volume 96.5 fL (80-100); Mean Platelet Volume 8.8 fL (7.4-10.4); Monocytes # (auto) 0.42 K/uL (0.11-0.59); Neutrophils # (auto) 2.66 K/uL (1.4-6.5); Neutrophils % (auto) 63.3 %; Platelet Count 103 K/uL (130-400); RDW Coefficient of Variation 13.2 % (11.5-14.5); RDW Standard Deviation 46.7 fL (36.4-46.3); Red Blood Count 4.03 M/uL (4.7-6.1)
[2020-02-12 05:55] LABS: Estimated Average Glucose 117 mg/dl; Hemoglobin A1C 5.7 % (4.5-5.6)
[2020-02-12 06:24] LABS: BUN Creatinine Ratio 14.3 (10-20); Calcium 7.8 mg/dl (8.5-10.1); Creatinine Clr Calc Pharmacy 103.6 ml/min; Est GFR (African American) 107.7; Est GFR (Non-African American) 92.9; Potassium 3.7 mmol/L (3.5-5.1)
[2020-02-12] MEDS: BUTALBITAL/ACETAMIN/CAFFEINE TAB PO PRN ×2 (08:11→16:41)
[2020-02-12] MEDS: ASPIRIN 81 MG ECTAB PO SCH (08:11)
[2020-02-12] MEDS ORDERED: LISINOPRIL/HCTZ 20/12.5MG 1 TAB TAB PO SCH (13:15)
[2020-02-12] MEDS: BACLOFEN 10 MG TAB PO PRN (13:42)
[2020-02-12] MEDS: DICYCLOMINE HCL 20 MG TAB PO PRN (13:42)
--- NOTE | 2020-02-12 15:30 | Hospitalist Progress Note ---
Date of Service February 12, 2020 Assessment & Plan (1) Stroke-like symptoms: (2) Slurred speech: (3) Ataxia: Present on admission with slurred speech/disoriented, lightheadedness and generalized weakness that occurred this morning Need to r/o acute CVA Stroke alert called on presentation, but no TPA given due to improvement in his symptoms CT head showed no acute intracranial findings. 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 CTA neck showed no severe stenosis stenosis within the major vessels within neck. Moderate plaque within the proximal left internal carotid artery with 10% stenosis. PO aspirin did not administer since pt said his "throat felt thick" Aspirin 300mg ME was given on admission MRI head showed No acute intracranial findings. 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 Severe multifocal stenoses within the intracranial portion of the left vertebral artery. ECHO showed no LV wall motion abnormality. EF 60-65 %. No evidence of atrial shunt noted on report Neuro on board Case discussed with neuro and recommended to continue aspirin and lipitor 40mg added PT/OT/Speech eval Continue aspirin 81 mg daily Chol 165, LDL 88 Telemonitor showed no arrhythmia Follow up with Neuro in 3 to 4 weeks Left Vertebral Artery Stenosis MRI showed severe multifocal stenoses within the intracranial portion of the left vertebral artery. Continue aspirin and Lipitor 40mg daily Hypertension BP elevated in the ER Lisinopril/HCTZ was held on admission to allow permissive Hypertension Lisinopril and HCTZ resumed Continue monitor BP Nausea/Vomiting Mostly related to dizziness resolved Chronic Abdominal pain Hx of Colectomy in 2018 and takedown colostomy Pain controlled with floricet and baclofen Hypomagnesemia Mag on admission 1.7 Mg replaced in the ER mag stable today Elevated glucose HbA1c 5.7 today Denies any history of DM BS stable DVT px on Lovenox subq Code Status DNR Disposition will discharge home today (4) HTN (hypertension): Admission and Anticipated Discharge Date Admission Date: February 11, 2020 Subjective Pt was seen and examined Lying in bed with no distress Pt said that he feels fine He said that his swallow is good denies any chest pain, palpitation, dizziness and SOB Physical Exam Physical Exam: General- No acute distress Head- atraumatic Eyes- PERRL, EOMI, ENT- oropharynx clear Neck- supple, no JVD Lungs- clear to auscultation Heart- regular rhythm; no murmur Abdomen- normal bowel sounds, soft, +umbelical hernia, +old healing surgical scars Extremities- no calf tenderness Neuro- alert, oriented x 3; PERRL, EOMI; no facial palsy; no dysarthria, finger to nose intake, sensation and strength intact Skin- warm & dry Results & Data Results & Data ([facility]) Vital Signs (Past 12 Hours) Vital Signs Temp Pulse Pulse Resp BP Pulse Ox 02/12/20 14:54 83 02/12/20 14:36 94 02/12/20 12:12 36.7 C 61 18 166/84 H 94 02/12/20 08:00 36.7 C 70 18 146/76 H 92 02/12/20 07:25 69 02/12/20 03:59 36.5 C 71 17 131/83 96
[2020-02-12] MEDS ORDERED: ATORVASTATIN 40 MG TAB PO SCH (16:30)
[2020-02-12] MEDS ORDERED: STROKE PATIENT DISCHARGE STA (17:05)
--- NOTE | 2020-02-12 17:26 | Pharmacy Report ---
Pharmacist Stroke Counseling - Date of Service February 12, 2020 - Scope: Pharmacy has been consulted to provide medication discharge counseling for this patient admitted with stroke-like symptoms/transient ischemic attack as per the Pharmacist Discharge Counseling for Stroke Patients Protocol. - Medications on Discharge: Home Medications Medication Instructions Recorded Confirmed baclofen 10 mg PO TID PRN 02/11/20 02/11/20 rmojcsdsjl-vyetvzdkmxdxt-tteh 1 tab PO Q6H PRN 02/11/20 02/11/20 dicyclomine 20 mg PO QID PRN 02/11/20 02/11/20 ketoconazole 1 applic TOPICAL DAILY 02/11/20 02/11/20 lisinopril-hydrochlorothiazide 0.5 tab PO DAILY 02/11/20 02/11/20 New Rx's Medication Instructions Recorded aspirin 81 mg PO QAM 30 Days #30 tab 02/12/20 atorvastatin 40 mg PO QAM 30 Days #30 tab 02/12/20 - Action: The above medications, specifically ones for stroke treatment/prophylaxis, have been reviewed in detail with the patient and/or patient telecommunications sales representative(s) prior to discharge. This includes indication, common adverse reactions, drug interactions, and medication administration. Medication counseling has been employed using the teach-back method to ensure understanding. - Outcome: The patient and/or patient telecommunications sales representative(s) have demonstrated understanding of the medications. Please note, they are aware that the pharmacist will call them within 72 hours post-discharge to confirm that the appropriate medications are being taken and answer any further medication related questions the patient might have at that time. Contact information Individual to be contacted: Bolivar Mott Relationship to patient (if applicable): Patient (self) Phone number: [phone] Best time to call: Mid-afternoon; leave voice-mail Additional comments: * Discharge counseling performed via telephone due to COVID-19 * Patient sounds knowledgeable and informed regarding his medications * Reviewed indications, dosing, and potential adverse effects of new Rx aspirin and atorvastatin. He will watch for any problems with bleeding/bruising and report any new myalgia. * BP elevated while admitted - he is apparently only take 1/2 tablet of lisinopril/HCTZ - advised to monitor and f/u with PCP to see if this needs adjusted; explained HTN risk for stroke/AL * He does not use NSAID's - aware to avoid * Denies smoking * He was curious about potential drug interactions with new Rx and home meds - no major problems identified. Told him it would be OK to take all Rx's together * Patient appreciative of counseling Thank you for allowing pharmacy to be involved in the care of this patient. Please call [phone] or [phone] with any additional questions
--- NOTE | 2020-02-12 23:45 | Electrocardiogram Report ---
Test Reason : Blood Pressure : / mmHG Vent. Rate : 070 BPM Atrial Rate : 070 BPM P-R Int : 232 ms QRS Dur : 094 ms QT Int : 422 ms P-R-T Axes : 053 -29 082 degrees QTc Int : 455 ms Sinus rhythm with 1st degree A-V block with Premature supraventricular complexes Inferior infarct (cited on or before 30-SEP-2015) Abnormal ECG When compared with ECG of 11-FEB-2020 05:58, Minimal criteria for Anterior infarct are no longer Present T wave inversion no longer evident in Lateral leads Confirmed by Talha Lund ([id number]) on 02/12/2020 11:45:24 PM Referred By: REFERRED SELF Confirmed By:Talha Lund
--- NOTE | 2020-02-14 15:51 | Pharmacy Report ---
Pharmacist Post D/C Phone Note - Phone Note: Date of phone call: February 14, 2020. The patient and/or patient manufacturer's representative(s) were unable to be reached for a follow-up phone call within the 72 hour time frame. Discharge counseling pharmacist contact information has already been provided to the patient should questions arise. Thank you for allowing us to be involved in the care of this patient. - Home Medications: Home Medications Medication Instructions Recorded Confirmed baclofen 10 mg PO TID PRN 02/11/20 02/11/20 vpifdnuzzz-tyngctrkmboyi-aarq 1 tab PO Q6H PRN 02/11/20 02/11/20 dicyclomine 20 mg PO QID PRN 02/11/20 02/11/20 ketoconazole 1 applic TOPICAL DAILY 02/11/20 02/11/20 lisinopril-hydrochlorothiazide 0.5 tab PO DAILY 02/11/20 02/11/20 New Rx's Medication Instructions Recorded aspirin 81 mg PO QAM 30 Days #30 tab 02/12/20 atorvastatin 40 mg PO QAM 30 Days #30 tab 02/12/20
--- NOTE | 2020-02-15 14:11 | Discharge Summary ---
Date of Service February 12, 2020 Admission HPI Per Admitting Provider 69 yo Male with PMH of HTN, GERD, SBO with reverse colostomy presented to to ER with slurred speech. Pt said that last night around 1 am he felt the urge to go to bed. He said that he woke up around 4am to use the bathroom and felt disoriented, dizzy and general weakness. He said that his gait was unsteady while walking to the bathroom when he had to use the wall for support. He said that he tried to speak while in the bathroom and realized his speech was slurred and had difficulty to articulate. He said that he felt nausea and vomiting once at home and once in the ER. He said that he had some vision difficulty. He said that he was about to walk to his 's bedroom to let her know that it seemed like he was having a stroke. He said the called EMS. Stroke alert was called and no TPA given since his symptoms were improved. Aspirin was not administered because pt felt some thickness in his throat. Pt said that he never experienced any symptoms like that in the past. Currently pt said that he feels much better. Currently denies any chest pain, palpitation, dizziness, SOB, fever. Denies any sick contact or any contact with anyone positive for COVID-19. No recent travelling. Admission Exam Per Admitting Provider General- No acute distress Head- atraumatic Eyes- PERRL, EOMI, ENT- oropharynx clear Neck- supple, no JVD Lungs- clear to auscultation Heart- regular rhythm; no murmur Abdomen- normal bowel sounds, soft, +mild tenderness, +umbelical hernia, +old healing surgical scars Extremities- no calf tenderness Neuro- alert, oriented x 3; PERRL, EOMI; no facial palsy; no dysarthria, finger to nose intake, sensation and strength intact Skin- warm & dry Principal Diagnosis (1) Stroke-like symptoms: (2) Slurred speech: (3) Ataxia: (4) Left Vertebral Artery Stenosis: (5) Hypertension (6) Chronic Abdominal pain (7) Hypomagnesemia Discharge Exam General- No acute distress Head- atraumatic Eyes- PERRL, EOMI, ENT- oropharynx clear Neck- supple, no JVD Lungs- clear to auscultation Heart- regular rhythm; no murmur Abdomen- normal bowel sounds, soft, +umbelical hernia, +old healing surgical scars Extremities- no calf tenderness Neuro- alert, oriented x 3; PERRL, EOMI; no facial palsy; no dysarthria, finger to nose intake, sensation and strength intact Skin- warm & dry Discharge Data Allergies Allergy/AdvReac Type Severity Reaction Status Date / Time shrimp AdvReac Unknown GI SYMPTOMS Verified 02/11/20 06:09 Consultations 02/11/20 07:09 ED Decision to Admit Stat 02/11/20 10:32 Consult Case Management - Discharge Planning Routine Consult Neurology Routine Ordered Studies 02/11/20 05:41 CT angio head w con Urgent CT angio neck with con Urgent CT head/brain wo con Urgent 02/11/20 10:32 MR angio head wo con Routine MR brain wo con Routine CT OF THE HEAD WITHOUT CONTRAST CLINICAL HISTORY: Stroke evaluation COMPARISON STUDY: No previous studies for comparison. TECHNIQUE: Helical axial images of the head were obtained without IV contrast. Automated exposure control was utilized for the study. A dose lowering technique was utilized adhering to the principles of ALARA. FINDINGS: No acute intracranial hemorrhage, midline shift or mass effect is present. The ventricular system is unremarkable. The basilar cisterns are patent. Mild volume loss is noted. Mild white matter hypodensity suggests small vessel disease. No extra-axial collections are present. There are no findings to suggest acute dural sinus thrombosis or acute territorial infarct. No significant calvarial abnormalities are present. Visualized portions of the sinuses and mastoid air cells are clear. IMPRESSION: No acute intracranial findings. ACT 112: Negative or not required by law. Electronically signed by: Shon Palencia M.D. 02/11/2020 6:49 AM Dictated: 02/11/2045 Transcribed: 02/11/2045 CTA ANGIOGRAPHY OF THE HEAD CLINICAL HISTORY: Stroke evaluation COMPARISON STUDY: No previous studies for comparison. TECHNIQUE: Helical axial images of the head were obtained following uneventful intravenous administration of 120 cc of Optiray 320. Sagittal and coronal reconstructions were viewed as well as maximal intensity projections on an independent 3-D workstation. Automated exposure control was utilized for the study. A dose lowering technique was utilized adhering to the principles of ALARA. FINDINGS: No acute intracranial hemorrhage, midline shift or mass effect is present. Ventricular system is normal. The basilar cisterns are patent. There is moderate plaque within the right cavernous carotid with mild stenosis. 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 There is no central vessel occlusion. There is no intraluminal thrombus. Note is made of severe stenosis of the proximal intracranial portion of the left vertebral artery. The basilar artery is patent. The bilateral posterior cerebral arteries are patent. IMPRESSION: 1. No abrupt vessel cut off or intraluminal thrombus. 2. 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 3. 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 Otherwise, mild multifocal stenoses within the intracranial vessels. ACT 112: Negative or not required by law. Electronically signed by: Shon Palencia M.D. 02/11/2020 7:03 AM Dictated: 02/11/20656 Transcribed: 02/11/20656 CT ANGIOGRAPHY OF THE NECK WITH CONTRAST CLINICAL HISTORY: Stroke evaluation COMPARISON STUDY: No previous studies for comparison. Technique: CT angiography of the carotid and vertebral arteries was obtained using NeGoBuY 320 IV and 3D reconstruction on an independent workstation. NASCET criteria was utilized. Automated exposure control was utilized for the study. A dose lowering technique was utilized adhering to the principles of ALARA. CT DOSE: 1313.62 mGy.cm Findings: The lung apices are clear. Dilatation of visualized portions of the ascending aorta, measuring up to 4.5 cm is noted. No cervical lymphadenopathy. No cervical spine fracture is noted. The bilateral vertebral arteries are patent. The right common carotid and cervical internal carotid arteries are patent. There is moderate plaque within the proximal left internal carotid artery with 10% stenosis. There is no dissection within the major vessels of the neck. IMPRESSION: No severe stenosis stenosis within the major vessels within neck. Moderate plaque within the proximal left internal carotid artery with 10% stenosis. ACT 112: Negative or not required by law. Electronically signed by: Shon Palencia M.D. 02/11/2020 6:56 AM Dictated: 02/11/20649 Transcribed: 02/11/20649 MRI OF THE BRAIN WITHOUT CONTRAST CLINICAL HISTORY: stroke like symptoms COMPARISON STUDY: Head CT and CTA of the head performed earlier today. TECHNIQUE: Utilizing a 1.5 Rosa magnet and dedicated coil, multiplanar, multiecho imaging of the brain was performed without IV contrast. FINDINGS: There are no foci of restricted diffusion to suggest acute infarct. No acute intracranial hemorrhage, midline shift or mass effect is present. Ventricular system is unremarkable. Basilar cisterns are patent. No extra axial collections are present. No intracranial masses are identified on this unenhanced examination. There is mild atrophy. White matter T2 hyperintense foci suggest mild small vessel disease. Calvarial signal is normal. MRA of the head will be reported separately. IMPRESSION: No acute intracranial findings. ACT 112: Negative or not required by law. Electronically signed by: Shon Palencia M.D. 02/11/2020 2:30 PM Dictated: 02/11/20 1426 Transcribed: 02/11/201425 MRA OF THE INTRACRANIAL CIRCULATION WITHOUT CONTRAST CLINICAL HISTORY: stroke like symptoms COMPARISON STUDY: CTA of the head February 11, 2020 5:49 AM. TECHNIQUE: Utilizing a 1.5 Rosa magnet and 3-D [id number] technique, unenhanced MRA of the intracranial circulation was obtained. FINDINGS: Note is made of a 2.6 mm aneurysm arising from the junction of the left anterior cerebral artery and the anterior communicating artery. The right A1 segment is hypoplastic. Note is made of severe multifocal stenoses within the intracranial portion of the left vertebral artery. The right vertebral artery and basilar artery are patent. Posterior circulation is otherwise intact. No intraluminal thrombus or abrupt vessel cut off is identified. There is no evidence for dissection. IMPRESSION: 1. 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 2. Severe multifocal stenoses within the intracranial portion of the left vertebral artery. ACT 112: Negative or not required by law. Electronically signed by: Shon Palencia M.D. 02/11/2020 2:34 PM Dictated: 02/11/20 1430 Transcribed: 02/11/20 143 Hospital Course (1) Stroke-like symptoms: (2) Slurred speech: (3) Ataxia: Present on admission with slurred speech/disoriented, lightheadedness and generalized weakness that occurred this morning Need to r/o acute CVA Stroke alert called on presentation, but no TPA given due to improvement in his symptoms CT head showed no acute intracranial findings. 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 CTA neck showed no severe stenosis stenosis within the major vessels within neck. Moderate plaque within the proximal left internal carotid artery with 10% stenosis. PO aspirin did not administer since pt said his "throat felt thick" Aspirin 300mg MA was given on admission MRI head showed No acute intracranial findings. 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 Severe multifocal stenoses within the intracranial portion of the left vertebral artery. ECHO showed no LV wall motion abnormality. EF 60-65 %. No evidence of atrial shunt noted on report Neuro on board Case discussed with neuro and recommended to continue aspirin and lipitor 40mg added PT/OT/Speech eval Continue aspirin 81 mg daily Chol 165, LDL 88 Telemonitor showed no arrhythmia Follow up with Neuro in 3 to 4 weeks Left Vertebral Artery Stenosis MRI showed severe multifocal stenoses within the intracranial portion of the left vertebral artery. Continue aspirin and Lipitor 40mg daily Hypertension BP elevated in the ER Lisinopril/HCTZ was held on admission to allow permissive Hypertension Lisinopril and HCTZ resumed Continue monitor BP Nausea/Vomiting Mostly related to dizziness resolved Chronic Abdominal pain Hx of Colectomy in 2018 and takedown colostomy Pain controlled with floricet and baclofen Hypomagnesemia Mag on admission 1.7 Mg replaced in the ER mag stable today Elevated glucose HbA1c 5.7 today Denies any history of DM BS stable DVT px on Lovenox subq Code Status DNR Disposition will discharge home today (4) HTN (hypertension): Total Time Total Time Spent Total Time Spent (In Minutes): 35 minutes Total Time Includes: Examination of the Patient, Discharge Planning, Medication Reconciliation, Communication With Other Providers and Other Discharge Plan Discharge Items Patient Disposition: Home - Self-Care Reason For Visit: STROKE LIKE SYMPTOMS Discharge Diagnosis: (1) Stroke-like symptoms: (2) Slurred speech: (3) Ataxia: (4) Left Vertebral Artery Stenosis: (5) Hypertension (6) Chronic Abdominal pain (7) Hypomagnesemia Activity: Resume your previous activity Non-emergency contact: Primary Care Provider and Neurologist Call non-emergency contact if: you have any medication questions Follow-up/Referrals: Francois Spann MD [Primary Care Provider] - 02/20/20 10:40 am (02/20/2020 10:40 AM Frank Crowder MD [facility] ) Diet: Heart Healthy Addtl Attending Provider Instructions: Follow up with your primary care provider Dr. Spann on 02/19 @ 10:40 AM Follow up with neurology Dr. Umanzor in 3 to 4 weeks (Please call to schedule for the follow up appointment ) Continue monitor your blood pressure and bring your blood pressure log at your next appointment with your physician Since starting on Lipitor, you will need to check your liver enzymes in 2 weeks (your physician will order it) Fall precaution Pending Studies at Discharge: No Stand-Alone Forms: Medications to Prevent Stroke, My [facility] [employer], Smoking Cessation Medications and DC Order Prescriptions: New atorvastatin 40 mg Tablet 40 mg PO QAM 30 Days Qty: 30 RF: 0 aspirin 81 mg Tablet,Delayed Release (Dr/Ec) 81 mg PO QAM 30 Days Qty: 30 RF: 0 Continued ketoconazole 2 % Cream 1 applic TOPICAL DAILY RF: 0 baclofen 10 mg Tablet 10 mg PO TID PRN (Reason: Muscle Spasm) RF: 0 jkycbpsakk-ovgkrvooqnhfq-dlga 50-325-40 mg Tablet 1 tab PO Q6H PRN (Reason: Pain) RF: 0 lisinopril-hydrochlorothiazide 20-12.5 mg Tablet 0.5 tab PO DAILY RF: 0 dicyclomine 20 mg Tablet 20 mg PO QID PRN (Reason: Abdominal Pain) RF: 0 Discharge Orders: Discharge Order (Routine); Ordered 02/12/20 Ordered By: Jael Cunningham Admission Data Admit Date/Time: 02/11/20 08:55 Attending Provider: Jael Cunningham Admit Provider: Jael Cunningham Primary Care Provider: Francois Spann Other Providers: Demarcus Umanzor Other Interventions: Discharge Summary Assessment (RN) Last Done: 02/12/20 17:14 DC Date/Time DO NOT enter until pt leaves facility: 02/12/20 17:47
== END 2020-02-12 17:47 | disposition home or self-care (01) ==
LOC: 2N 05:44 → ED 05:44 → 2N 09:35
DX: I10 Essential (primary) hypertension; I65.02 Occlusion and stenosis of left vertebral artery; R11.2 Nausea with vomiting, unspecified; Z79.899 Other long term (current) drug therapy; R27.0 Ataxia, unspecified; R47.81 Slurred speech; Z87.891 Personal history of nicotine dependence; G89.29 Other chronic pain

== ENCOUNTER 2024-09-20 08:50 | Inpatient (IN) ==
--- NOTE | 2024-09-20 09:10 | Emergency Department Note ---
Impression & Plan Weakness, Elevated troponin, Thrombocytopenia ED Provider Note NAME: HERBERT TEJEDA AGE: 74 SEX: M : 1950 ARRIVES VIA: Ambulance INFORMANT: Patient ED PROVIDER(S): Benjamín Ulrich DO CHIEF COMPLAINT: Weakness HPI: Patient is a 74-year-old male who presents to the ER for weakness. He notes he fell asleep in his chair and got up around 2 AM. He was walking around. His legs became very weak and he fell to the ground. He did not hit his head. He has no pain from the fall. He notes that he had to drag himself to bed as he cannot stand and his legs are too weak. They are weak bilaterally. He denies any head pain or neck pain. No chest pain or shortness of breath. No dizziness or lightheadedness. No back pain. No dysuria, urgency, or frequency. No upper respiratory symptoms. No other exacerbating or remitting factors. ADDITIONAL HISTORY OBTAINED: Per HPI Chronic Medical/Social Conditions Affecting Care: Per HPI PAST MEDICAL HISTORY:See Below PAST SURGICAL HISTORY:See Below FAMILY HISTORY:See Below SOCIAL HISTORY:See Below HOME MEDICATIONS:See Below ALLERGIES:See Below VITALS:See Below PHYSICAL EXAMINATION: GENERAL: alert, well appearing, well nourished, no distress, non-toxic HEAD: normal cephalic, atraumatic EYE EXAM: normal conjunctiva, PERRL and EOM's grossly intact OROPHARYNX: no exudate, no erythema, lips, buccal mucosa, and tongue normal and mucous membranes are moist EARS: TMs clear b/l NECK: supple, no nuchal rigidity, no adenopathy, non-tender CHEST: stable to compression anteriorly and posteriorly LUNGS: clear to auscultation. Normal chest wall mechanics HEART: no murmurs, S1 normal and S2 normal ABDOMEN: abdomen soft, non-tender, normo-active bowel sounds, no masses, no rebound or guarding. PELVIS: stable to compression anteriorly and posteriorly BACK: Back is symmetrical on inspection and there is no deformity, no midline tenderness, no CVA tenderness. UPPER EXTREMITIES: full active and passive range of motion of all joints without tenderness to palpation LOWER EXTREMITIES: full active and passive range of motion of all joints without tenderness to palpation NEURO EXAM: Normal sensorium, cranial nerves II-XII grossly intact, normal speech, no gross weakness of arms, no gross weakness of legs. GCS: 15. MEDICAL DECISION MAKING: Patient is a 74-year-old male who presents ER for above-stated complaint. IV was established and blood work was obtained. Labs show no significant leukocytosis or anemia. Mild thrombocytopenia at 120. BMP along with LFTs bilirubin is unremarkable. Troponin was elevated at 57. Lipase was normal. UA was clean. Lyme was negative. Patient CT head was negative. Chest x-ray was unremarkable. Patient was updated bedside discussed case with the hospitalist for further evaluation management treatment due to the weakness and the elevated troponin. He never had any chest pain or shortness of breath. Consults/Care Managements Discussions: Per [facility] Triage Nursing notes reviewed. Limited review of prior medical records performed Vital Signs: reviewed and remarkable for tachy Differential diagnosis: Differential diagnoses include major intracranial, cervical, spinal, thoracic, abdominal, pelvic and neurologic injury. Fracture, contusion, sprain, strain, laceration, abrasions included as well. ER treatment provided: See below Diagnostics interpreted by me include EKG and cardiac monitoring as listed below: -Cardiac Monitoring: An order was placed for continuous cardiac monitoring. The monitor shows a rate of 120 with sinus rhythm. -ECG: Multifocal atrial Tachycardia rate of 117 Left axis No PVCs QTc 463 -Laboratory studies:Interpreted by me as stated above in MDM and shown below. Imaging studies: Xrays: As interpreted by me: Portable AP upright 1 view of the chest shows no focal infiltrate CTs show: none Procedures:none Critical Care: None Past Med/Surg History Problem List (Updated 09/20/24 @ 13:30 by Benjamín Ulrich DO) Thrombocytopenia (Acute) Elevated troponin (Acute) Weakness (Acute) Tachycardia Bilateral leg weakness Elevated troponin Unwitnessed fall Acute vestibular syndrome Stroke-like symptoms History of colostomy reversal Hypomagnesemia (Acute) HTN (hypertension) (Chronic) Slurred speech (Acute) Ataxia (Acute) Social History Smoking Status: Never smoker Second Hand Exposure: No; Do You Dip or Chew Tobacco: No; Hx Alcohol Use: No Hx Substance Use: No Preferred Language: [place] Communication Ability: Effective Smeller Required: No Beliefs That Will Affect Care: None Current Living Situation: Spouse Feels Safe at Home: Yes Assistive Devices: Glasses Allergies Allergies Allergy/AdvReac Type Severity Reaction Status Date / Time shrimp AdvReac Unknown GI SYMPTOMS Verified 02/11/20 06:09 Home Meds Home Medications Medication Instructions Recorded Confirmed baclofen 10 mg tablet 10 mg PO TID Muscle Spasm/Neck Pain 02/11/20 09/20/24 dicyclomine 20 mg tablet 20 mg PO QID 02/11/20 09/20/24 ketoconazole 2 % topical cream 1 applic topical UD 02/11/20 09/20/24 atorvastatin 40 mg tablet 40 mg PO QAM 09/20/24 09/20/24 [id number]-sycbsvpsstlsb-[id number] 1 tab PO Q6H PRN Abdominal 09/20/24 09/20/24 50 mg-325 mg-40 mg tablet Pain/Neck Pain lisinopril 5 mg tablet 5 mg PO HS 09/20/24 09/20/24 Results & Data (ED) Vital Signs Vital Signs - 24 hr 09/20/24 08:56 09/20/24 09:11 09/20/24 09:16 Temperature 36.5 C Temperature Source Oral Pulse Rate 122 H 103 H 117 H Pulse Rhythm Regular Respiratory Rate 16 20 Respiratory Effort / Characteristics Non-Labored Respiratory Depth Normal Respiratory Pattern Regular Blood Pressure 169/109 H Blood Pressure Mean 129 Pulse Oximetry 95 94 Oxygen Delivery Method Room Air Room Air Sepsis Recent Fever Within 48 Hours No Sepsis New/Unexplained Change in Mental Status N/A Sepsis Action Taken by Nursing No Action Required 09/20/24 09:30 09/20/24 10:30 09/20/24 11:00 Temperature Temperature Source Pulse Rate 107 H 120 H 105 H Pulse Rhythm Respiratory Rate 18 24 19 Respiratory Effort / Characteristics Respiratory Depth Respiratory Pattern Blood Pressure 160/100 H 162/125 H 168/101 H Blood Pressure Mean 120 128 125 Pulse Oximetry 95 97 95 Oxygen Delivery Method Sepsis Recent Fever Within 48 Hours Sepsis New/Unexplained Change in Mental Status Sepsis Action Taken by Nursing 09/20/24 11:30 09/20/24 12:00 09/20/24 12:17 Temperature Temperature Source Pulse Rate 106 H 118 H 106 H Pulse Rhythm Respiratory Rate 19 22 Respiratory Effort / Characteristics Respiratory Depth Respiratory Pattern Blood Pressure 171/111 H 146/110 H 146/110 H Blood Pressure Mean 147 113 Pulse Oximetry 95 96 Oxygen Delivery Method Sepsis Recent Fever Within 48 Hours Sepsis New/Unexplained Change in Mental Status Sepsis Action Taken by Nursing 09/20/24 12:45 09/20/24 13:09 Temperature Temperature Source Pulse Rate 77 80 Pulse Rhythm Respiratory Rate 16 Respiratory Effort / Characteristics Respiratory Depth Respiratory Pattern Blood Pressure 167/84 H 160/101 H Blood Pressure Mean 120 Pulse Oximetry 97 Oxygen Delivery Method Room Air Sepsis Recent Fever Within 48 Hours Sepsis New/Unexplained Change in Mental Status Sepsis Action Taken by Nursing Laboratory Data 09/20/24 09:13 09/20/24 09:13 Lab Results 09/20/24 09/20/24 09/20/24 Range/Units 09:13 09:42 11:00 WBC 8.36 (4.8-10.8) K/ul RBC 4.88 (4.70-6.10) M/uL Hgb 15.8 (14.0-18.0) g/dl Hct 45.8 (42.0-52.0) % MCV 93.9 (80.0-100.0) fL MCH 32.4 (25.0-34.0) pg MCHC 34.5 (32.0-36.0) g/dL RDW Std Deviation 44.5 (36.4-46.3) fL RDW Coeff of Ceci 12.9 (11.5-14.5) % Plt Count 120 L (130-400) K/uL MPV 9.4 (9.4-12.4) fL Immature Gran % (Auto) 0.4 % Neut % (Auto) 85.5 % Lymph % (Auto) 6.8 % [place] % (Auto) 6.6 % Eos % (Auto) 0.5 % Baso % (Auto) 0.2 % Neut # (Auto) 7.15 H (1.40-6.50) K/uL Lymph # (Auto) 0.57 L (1.20-3.40) K/uL [place] # (Auto) 0.55 (0.11-0.59) K/uL Eos # (Auto) 0.04 (0.00-0.50) K/uL Baso # (Auto) 0.02 (0.00-0.20) K/uL Immature Gran # (Auto) 0.03 (0.01-0.20) K/uL Sodium 140 (136-145) mmol/L Potassium 3.8 (3.5-5.1) mmol/L Chloride 107 (98-107) mmol/L Carbon Dioxide 21 (21-32) mmol/L Anion Gap 12 H (3-11) BUN 10 (6-23) mg/dl Creatinine 0.78 (0.6-1.4) mg/dl Est Cr Clr Drug Dosing 90.4 ml/min eGFR 93.00 BUN/Creatinine Ratio 12.8 (10-20) Glucose 127 H (70-99(Fasting)) mg/dl Calcium 9.3 (8.6-10.3) mg/dl Total Bilirubin 0.8 (0.2-1.0) mg/dl AST 21 (13-39) U/L ALT 16 (7-52) U/L Alkaline Phosphatase 96 (34-104) U/L Total Creatine Kinase 158 199 (30-223) U/L Troponin I High Sens 57.9 H* 128.5 H* D (0-20) pg/ml Total Protein 7.3 (6.0-8.3) gm/dl Albumin 4.2 (3.4-5.0) gm/dl Globulin 3.1 (2.5-4.0) gm/dl Albumin/Globulin Ratio 1.4 (0.9-2) Lipase 21 (11-82) U/L Urine Color Yellow Urine Appearance Clear (Clear) Urine pH 6.0 (4.5-7.5) Ur Specific [place] 1.014 (1.000-1.030) Urine Protein Negative (Negative) Urine Glucose (UA) Negative (Negative) Urine Ketones Trace H (Negative) Urine Blood Negative (Negative) Urine Nitrite Negative (Negative) Urine Bilirubin Negative (Negative) Urine Urobilinogen Negative (Negative) Ur Leukocyte Esterase Negative (Negative) Lyme Disease Screen Negative (Negative) Administered Medications Discontinued Medications Baclofen (Baclofen 10 Mg Tab) 10 mg PO NOW ONE Stop: 09/20/24 13:01 Last Admin: 09/20/24 13:11 Dose: 10 mg Documented By: ANT Sodium Chloride (Nss) 1,000 mls @ 999 mls/hr IV .Q1H1M ONE Stop: 09/20/24 10:10 Last Infusion: 09/20/24 10:30 Dose: Infused Documented By: Admin: 09/20/24 09:28 Dose: 999 mls/hr Documented By: ANT Labetalol HCl (Labetalol Hcl Iv 5 Mg/Ml 20ml) 10 mg IV NOW STA Stop: 09/20/24 11:38 Last Admin: 09/20/24 12:17 Dose: 10 mg Documented By: ANT Imaging Data Radiologist's Impression: Chest X-Ray 09/20/24 09:06 XR chest 1V portable CLINICAL HISTORY: Chest pain, nonspecific COMPARISON STUDY: Chest radiograph October 26, 2017. FINDINGS: Lung volumes are normal. Lungs are clear. There is no pneumothorax or pleural effusion. Cardiomegaly is unchanged. Mediastinal contours are normal. There is no evidence for pulmonary edema. IMPRESSION: No acute cardiopulmonary findings. ACT 112: Negative or not required by law. Electronically signed by: Shon Palencia M.D. 09/20/2024 9:[address] 09/20/24 09:06 CT head/brain wo con CLINICAL HISTORY: 74 years-old Male with fall. Acute head trauma status post fall TECHNIQUE: Multiple axial CT images of the head were obtained without contrast. A dose lowering technique was utilized adhering to the principles of ALARA. CT DOSE: 703.85 mGy.cm COMPARISON: Brain MRI 02/11/2020 FINDINGS: No acute intracranial hemorrhage, midline shift, intracranial mass, hydrocephalus, territorial ischemia or abnormal extra-axial collection. Involutional changes with chronic microvascular ischemic disease. The calvarium is intact. Prior partial ethmoidectomy. The mastoid air cells are clear. IMPRESSION: No acute intracranial abnormality or calvarial fracture. ACT 112: Negative or not required by law. The above report was generated using voice recognition software. It may contain grammatical, syntax or spelling errors. Electronically signed by: Galo Pandya M.D. 09/20/2024 9:25 AM Knee X-Ray 09/20/24 12:00 XR knee RT 1 or 2V routine CLINICAL HISTORY: Recent fall, R knee pain COMPARISON: None FINDINGS: Lucency within the medial tibial plateau is noted with suspected mild depression. However, no significant joint effusion is present. No additional fractures are identified. There is mild medial and patellofemoral compartment osteophytosis. IMPRESSION: Lucency within the medial tibial plateau with suspected mild depression. This favors a medial tibial plateau fracture however there is no significant joint effusion. A CT of the right knee is recommended for confirmation. ACT 112: Negative or not required by law. Electronically signed by: Shon Palencia M.D. 09/20/2024 12:47 PM Discharge Plan Visit Data Chief Complaint: Fall ED Provider: Benjamín Ulrich Discharge Problem: Weakness, Elevated troponin, Thrombocytopenia Forms Stand Alone Forms: [facility] Prescriptions Prescriptions: No Action ketoconazole 2 % Cream 1 applic TOPICAL UD Rx Instructions: Apply to face and arms. baclofen 10 mg Tablet 10 mg PO TID Rx Instructions: Takes 3x/day scheduled not PRN. dicyclomine 20 mg Tablet 20 mg PO QID atorvastatin 40 mg tablet 40 mg PO QAM lisinopril 5 mg tablet 5 mg PO HS [id number] 50-325-40 mg tablet 1 tab PO Q6H PRN (Reason: Abdominal Pain/Neck Pain) Referrals Referrals: Francois Spann MD [Hospitalist] -
--- NOTE | 2024-09-20 09:26 | CT Scan Report ---
CT head/brain wo con CLINICAL HISTORY: 74 years-old Male with fall. Acute head trauma status post fall TECHNIQUE: Multiple axial CT images of the head were obtained without contrast. A dose lowering tech nique was utilized adhering to the principles of ALARA. CT DOSE: 703.85 mGy.cm COMPARISON: Brain MRI 02/11/2020 FINDINGS: No acute intracranial hemorrhage, midline shift, intracranial mass, hydrocephalus, territorial ischem ia or abnormal extra-axial collection. Involutional changes with chronic microvascular ischemic disea se. The calvarium is intact. Prior partial ethmoidectomy. The mastoid air cells are clear. IMPRESSION: No acute intracranial abnormality or calvarial fracture. ACT 112: Negative or not required by law. The above report was generated using voice recognition software. It may contain grammatical, syntax o r spelling errors. Electronically signed by: Galo Pandya M.D. 09/20/2024 9:25 AM
[2024-09-20] MEDS: SODIUM CHLORIDE 0.9% 1,000 ML IV ONE (09:28)
[2024-09-20 09:33] LABS: Basophils # (auto) 0.02 K/uL (0.00-0.20); Basophils % (auto) 0.2 %; Eosinophils # (auto) 0.04 K/uL (0.00-0.50); Eosinophils % (auto) 0.5 %; Hematocrit (blood only) 45.8 % (42.0-52.0); Hemoglobin 15.8 g/dl (14.0-18.0); Immature Granulocytes # (auto) 0.03 K/uL (0.01-0.20); Immature Granulocytes % (auto) 0.4 %; Lymphocytes # (auto) 0.57 K/uL (1.20-3.40); Lymphocytes % (auto) 6.8 %; Mean Corpuscular Hemoglobin 32.4 pg (25.0-34.0); Mean Corpuscular Hgb Conc 34.5 g/dL (32.0-36.0); Mean Corpuscular Volume 93.9 fL (80.0-100.0); Mean Platelet Volume 9.4 fL (9.4-12.4); Monocytes # (auto) 0.55 K/uL (0.11-0.59); Monocytes % (auto) 6.6 %; Neutrophils # (auto) 7.15 K/uL (1.40-6.50); Neutrophils % (auto) 85.5 %; Platelet Count 120 K/uL (130-400); RDW Coefficient of Variation 12.9 % (11.5-14.5); RDW Standard Deviation 44.5 fL (36.4-46.3); Red Blood Count 4.88 M/uL (4.70-6.10); White Blood Count 8.36 K/ul (4.8-10.8)
[2024-09-20 09:45] LABS: Albumin Globulin Ratio 1.4 (0.9-2); Albumin Level 4.2 gm/dl (3.4-5.0); BUN Creatinine Ratio 12.8 (10-20); Bilirubin,Total 0.8 mg/dl (0.2-1.0); Calcium 9.3 mg/dl (8.6-10.3); Creatinine Clr Calc Pharmacy 90.4 ml/min; Globulin 3.1 gm/dl (2.5-4.0); Potassium 3.8 mmol/L (3.5-5.1); Total Protein 7.3 gm/dl (6.0-8.3)
--- NOTE | 2024-09-20 09:59 | XRay Report ---
XR chest 1V portable CLINICAL HISTORY: Chest pain, nonspecific COMPARISON STUDY: Chest radiograph October 26, 2017. FINDINGS: Lung volumes are normal. Lungs are clear. There is no pneumothorax or pleural effusion. Car diomegaly is unchanged. Mediastinal contours are normal. There is no evidence for pulmonary edema. IMPRESSION: No acute cardiopulmonary findings. ACT 112: Negative or not required by law. Electronically signed by: Shon Palencia M.D. 09/20/2024 9:57 AM
[2024-09-20 10:07] LABS: Troponin I High Sensitivity 57.9 pg/ml (0-20)
[2024-09-20 10:09] LABS: Appearance Urine Clear (Clear); Bilirubin Urine Negative (Negative); Blood Urine Negative (Negative); Color Urine Yellow; Glucose Urine UA Negative (Negative); Ketones Urine Trace (Negative); Leukocyte Esterase Urine Negative (Negative); Nitrite Urine Negative (Negative); Protein Urine Negative (Negative); Specific Gravity Urine 1.014 (1.000-1.030); Urobilinogen Urine Negative (Negative)
--- NOTE | 2024-09-20 10:25 | History & Physical Report ---
Date of Service September 20, 2024 Assessment & Plan (1) Unwitnessed fall: (2) Bilateral leg weakness: (3) Elevated troponin: (4) Tachycardia: (5) HTN (hypertension): Plan Dandre Mott is a 74-year-old male with past medical history significant for dyslipidemia, HTN, left vertebral artery stenosis, vertigo, first-degree AV block, GERD without esophagitis, IBS with diarrhea, cervical degenerative disc disease, migraines, history of SBO s/p partial colectomy + subsequent reversal and FILIBERTO who presented to the ED for evaluation on 09/20/2024 via EMS secondary to an unwitnessed fall at home and bilateral lower extremity weakness. Patient was attempting to get out of his recliner earlier this morning around 2AM when suddenly his "legs getting out" and he subsequently fell to the ground. Denies ever hitting his head during his fall or losing consciousness however he was unable to get himself off of the floor; patient subsequently was on the ground until around 7:30AM when his brother arrived and then EMS was called. He landed onto his right hand and right knee during the fall - only endorses mild pain in his right knee which seems to be chronic. Patient still with persistent feeling of bilateral lower extremity weakness however his strength testing on examination was 5/5 in all extremities. No loss of bowel or bladder control. Mentions he has been unable to get up and walk since the fall occurred. Unwitnessed Fall, BLE Weakness: History as per above and HPI. Presenting head CT, CXR unremarkable. Initial laboratory evaluation unremarkable except for elevated troponin as mentioned below. Total CK level WNL. Lyme screen pending. S/p 1L NSS in the ED. Will check XR of right knee, lumbar spine CT without contrast. PT/OT evaluations ordered. Check orthostatic vitals. Elevated Troponin, ACS R/O: Initial troponin 57.9, repeat troponin 128.5 at 11:00. Presenting EKG revealed sinus tachycardia with premature supraventricular complexes but otherwise did not reveal any overtly acute ST changes. 1+ BLE e maday on exam however CXR is unremarkable. Patient with history of first-degree AV block. He is without any cardiopulmonary complaints at this time. Will obtain resting echocardiogram. Likely demand ischemia in the setting of persistent tachycardia however cardiology consult is pending for further evaluation in order to rule out ACS. Continue to trend troponin Q6H. EKG daily x 2. EKG with chest pain PRN. Continuous cardiac monitoring on telemetry. Tachycardia, Hypertension: BP 168/101, HR fluctuating in the 100s-110s at the time of evaluation in the ED. Initial EKG findings, troponin elevation as per above. 10mg IV labetalol ordered to be given in the ED. Follow repeat BP checks. On lisinopril 5 mg daily which he takes at night - will continue this dosage however may possibly need antihypertensive regimen changes. PRN 10mg IV labetalol Q4H for SBP>165 ordered. Continuous cardiac monitoring as per above. Other Chronic Medical Conditions: * IBS with diarrhea - Continue dicyclomine. * HLD - Continue atorvastatin. Can resume taking PRN baclofen for neck pain/muscle spasms. DVT Prophylaxis: SQ Lovenox Code Status: FULL CODE PCP: Frank Crowder MD Disposition: Admit to Med/Telemetry Patient seen in collaboration with Dr. Fermin. Please see addendum. I spent a total of 55 minutes coordinating, documenting, and providing care for this patient excluding time spent in the performance of separately billed services. This included personally reviewing all current laboratories and imaging studies, medical reconciliation, outpatient chart review and discussion with specialists. This chart was completed in part utilizing Speech Voice Recognition Software. Grammatical errors, random word insertions, pronoun errors, and incomplete sentences are an occasional consequence of this system due to software limitations, ambient noise, and hardware issues. Any formal questions or concerns about the content, text, or information contained within the body of this dictation should be directly addressed to the provider for clarification. History of Present Illness Chief Complaint: Unwitnessed Fall, BLE Weakness Primary Care Provider: Frank Crowder MD Dandre Mott is a 74-year-old male with past medical history significant for dyslipidemia, HTN, left vertebral artery stenosis, vertigo, first-degree AV block, GERD without esophagitis, IBS with diarrhea, cervical degenerative disc disease, migraines, history of SBO s/p partial colectomy + subsequent reversal and FILIBERTO who presented to the ED for evaluation on 09/20/2024 via EMS secondary to an unwitnessed fall at home and bilateral lower extremity weakness. History obtained from patient, patient's brother at bedside and associated chart view. Patient reports that he was attempting get out of his recliner earlier this morning around 2AM when suddenly his "legs gave out" and he subsequently fell to the ground. Patient denies hitting his head during this fall or ever losing consciousness, however he was unable to get up off the floor himself. He remained sitting on the floor until 7:30AM when his brother, Yamil, arrived at the house and called EMS. Patient reports that he did stick out his right hand to help break his fall. He sustained a minor skin tear to his right palmar region but otherwise denies any pain in his right wrist or hand regions. Patient's brother did not notice any overt neurological deficits (such as facial drooping, slurred speech or word finding difficulty) when he arrived to his house - reports patient was acting at his baseline mental status. Of note, patient currently lives at home alone in a two-story house. Patient reports using a cane to ambulate at baseline due to chronic generalized weakness the generally worsens with exertion. He reports that he has to use a motorized cart at the grocery store because he becomes fatigued with activity at baseline. Patient is typically quite independent with ADLs and still drives. He reports th at this sudden onset of his "legs giving out "this morning was very abnormal for him. He does have osteoarthritis of the right knee but otherwise has had no difficulties with his lower extremities besides for his chronic generalized weakness. Does endorse some mild right knee pain at the moment. Patient denies experiencing any visual disturbances prior to his fall. He does not have any prior history of stroke. Patient does not smoke nor have any history of frequent alcohol use. He mentions that his bilateral lower extremity weakness seems to be improving slightly since being in the ED however he is unsure if he feels strong enough to walk around. He has not tried to ambulate yet in the ED. Denies any previous history of tick bites or Lyme disease. Denies any chest pain, SOB, abdominal pain, recent fevers or urinary/bowel habit changes. Head CT in the ED was unremarkable. Chest x-ray also was negative for any acute findings. Initial infectious workup is unrevealing include negative UA. Initial laboratory workup however revealed an elevated troponin of 57.9, repeat troponin in the ED was further bumped to 128.5; patient without any cardiac complaints and presenting EKG did not reveal any overtly acute ST changes. Allergies Allergy/AdvReac Type Severity Reaction Status Date / Time shrimp AdvReac Unknown GI SYMPTOMS Verified 02/11/20 06:09 Home Medications Medication Instructions Recorded Confirmed Type baclofen 10 mg tablet 10 mg PO TID Muscle Spasm/Neck Pain 02/11/20 09/20/24 History dicyclomine 20 mg tablet 20 mg PO QID 02/11/20 09/20/24 History ketoconazole 2 % topical cream 1 applic topical UD 02/11/20 09/20/24 History atorvastatin 40 mg tablet 40 mg PO QAM 09/20/24 09/20/24 History hzjebpeuzc-ivutndfnanqrx-xqmqrzhq 1 tab PO Q6H PRN Abdominal 09/20/24 09/20/24 History 50 mg-325 mg-40 mg tablet Pain/Neck Pain lisinopril 5 mg tablet 5 mg PO HS 09/20/24 09/20/24 History Past Med/Surg History Problem List (Updated 09/20/24 @ 13:30 by Benjamín Ulrich DO) Thrombocytopenia (Acute) Elevated troponin (Acute) Weakness (Acute) Tachycardia Bilateral leg weakness Elevated troponin Unwitnessed fall Acute vestibular syndrome Stroke-like symptoms History of colostomy reversal Hypomagnesemia (Acute) HTN (hypertension) (Chronic) Slurred speech (Acute) Ataxia (Acute) Social History Smoking Status: Never smoker Second Hand Exposure: No; Do You Dip or Chew Tobacco: No; Hx Alcohol Use: No Hx Substance Use: No Preferred Language: [place]an Communication Ability: Effective Field Service Supervisor Required: No Beliefs That Will Affect Care: None Current Living Situation: Spouse Feels Safe at Home: Yes Assistive Devices: Glasses Review of Systems Review of Systems: At least ten systems reviewed and negative, except as noted in the HPI. Physical Exam Physical Exam: General: WD/WN, NAD, sitting up in bed, very pleasant, conversing appropriately. A+Ox3, euthymic affect. HEENT: Normocephalic, atraumatic. Conjunctivae marisela. External ear and nose normal, oropharynx normal. Respiratory: Normal respiratory effort, lungs clear to auscultation, no wheeze/rales/rhonchi. No accessory muscle use. Cardiovascular: Tachycardic rate, regular rhythm, normal peripheral pulses, 1+ BLE edema. Vessels: No JVD. Abdomen/GI: Active bowel sounds, soft, nondistended, nontender to palpation in all quadrants. Extremities/Musculoskeletal: Extremities motor strength 5/5 in BUE and BLE, actively moves all extremities. Neurologic: No overt focal deficits, CN's II-XI not formally tested but appear grossly intact bilaterally. Skin: No rashes, normal color, warm/dry. Results & Data Results & Data Vital Signs (Past 12 Hours) Vital Signs Temp Pulse Resp BP Pulse Ox O2 Del Method 09/20/24 09:30 107 H 18 160/100 H 95 09/20/24 09:16 117 H 09/20/24 09:11 103 H 20 94 Room Air 09/20/24 08:56 36.5 C 122 H 16 169/109 H 95 Room Air Laboratory Results Short CBC 09/20/24 Range/Units 09:13 WBC 8.36 (4.8-10.8) K/ul Hgb 15.8 (14.0-18.0) g/dl Hct 45.8 (42.0-52.0) % Plt Count 120 L (130-400) K/uL BMP 09/20/24 09:13 Sodium 140 Potassium 3.8 Chloride 107 Carbon Dioxide 21 BUN 10 Creatinine 0.78 Glucose 127 H Calcium 9.3 Cardiac Enzymes 09/20/24 Range/Units 09:13 Total Creatine Kinase 158 (30-223) U/L Liver Function 09/20/24 Range/Units 09:13 Total Bilirubin 0.8 (0.2-1.0) mg/dl AST 21 (13-39) U/L ALT 16 (7-52) U/L Alkaline Phosphatase 96 (34-104) U/L Albumin 4.2 (3.4-5.0) gm/dl Urine 09/20/24 Range/Units 09:42 Urine Color Yellow Urine Appearance Clear (Clear) Urine pH 6.0 (4.5-7.5) Ur Specific [place] 1.014 (1.000-1.030) Urine Protein Negative (Negative) Urine Glucose (UA) Negative (Negative) Diagnostic Findings Chest X-Ray 09/20/24 09:06 XR chest 1V portable CLINICAL HISTORY: Chest pain, nonspecific COMPARISON STUDY: Chest radiograph October 26, 2017. FINDINGS: Lung volumes are normal. Lungs are clear. There is no pneumothorax or pleural effusion. Cardiomegaly is unchanged. Mediastinal contours are normal. There is no evidence for pulmonary edema. IMPRESSION: No acute cardiopulmonary findings. ACT 112: Negative or not required by law. Electronically signed by: Shon Palencia M.D. 09/20/2024 9:[address] 09/20/24 09:06 CT head/brain wo con CLINICAL HISTORY: 74 years-old Male with fall. Acute head trauma status post fall TECHNIQUE: Multiple axial CT images of the head were obtained without contrast. A dose lowering technique was utilized adhering to the principles of ALARA. CT DOSE: 703.85 mGy.cm COMPARISON: Brain MRI 02/11/2020 FINDINGS: No acute intracranial hemorrhage, midline shift, intracranial mass, hydrocephalus, territorial ischemia or abnormal extra-axial collection. Involu tional changes with chronic microvascular ischemic disease. The calvarium is intact. Prior partial ethmoidectomy. The mastoid air cells are clear. IMPRESSION: No acute intracranial abnormality or calvarial fracture. ACT 112: Negative or not required by law. The above report was generated using voice recognition software. It may contain grammatical, syntax or spelling errors. Electronically signed by: Galo Pandya M.D. 09/20/2024 9:25 AM Medications Administered Discontinued Medications Sodium Chloride (Nss) 1,000 mls @ 999 mls/hr IV .Q1H1M ONE Stop: 09/20/24 10:10 Last Admin: 09/20/24 09:28 Dose: 999 mls/hr Documented By: ANT Code Status & VTE Plan Code Status FULL CODE Supervising Physician Co-Signing Physician Notes Patient seen and examined Reports fall on getting up in the middle of the night Denied any head trauma, LOC, chest pain, dizziness Reports unable to get up and walk since then Denied any new pain. Reports only chronic right knee pain Review of labs notable for Trop of 57.9 Reviewed EKG. Elevated trop likely demand ischemia. Get TTE. Tele monitor Trend trop and if trends up, get Cards eval Get XR of right knee, CT lumbosacral to assess spine and pelvis PT/OT I spent a total of 45 minutes coordinating, documenting and providing care for this patient excluding time spent in performance of separately billed services (5) HTN (hypertension) Hypertension type: unspecified Qualified Code(s): I10 - Essential (primary) hypertension
[2024-09-20 11:44] LABS: Troponin I High Sensitivity 128.5 pg/ml (0-20)
[2024-09-20] MEDS: LABETALOL HCL IV 5 MG/ML 20ML IV STA (12:17)
--- NOTE | 2024-09-20 12:48 | XRay Report ---
XR knee RT 1 or 2V routine CLINICAL HISTORY: Recent fall, R knee pain COMPARISON: None FINDINGS: Lucency within the medial tibial plateau is noted with suspected mild depression. However, no significant joint effusion is present. No additional fractures are identified. There is mild medi al and patellofemoral compartment osteophytosis. IMPRESSION: Lucency within the medial tibial plateau with suspected mild depression. This favors a me dial tibial plateau fracture however there is no significant joint effusion. A CT of the right knee i s recommended for confirmation. ACT 112: Negative or not required by law. Electronically signed by: Shon Palencia M.D. 09/20/2024 12:47 PM
[2024-09-20] MEDS: BACLOFEN 10 MG TAB PO ONE (13:11)
--- NOTE | 2024-09-20 13:29 | CT Scan Report ---
LUMBAR SPINE CT WITHOUT CONTRAST CLINICAL HISTORY: Recent fall, BLE weakness COMPARISON STUDY: CT of the abdomen and pelvis October 24, 2017. TECHNIQUE: Axial images of the lumbar spine were obtained without IV contrast. Sagittal and coronal r eformats were viewed. Automated exposure control was utilized for the study. A dose lowering techniq ue was utilized adhering to the principles of ALARA. FINDINGS: For purposes of numbering on this exam, the L5-S1 disc space is assigned to axial image 323 of 377. There are no lumbar spine fractures. No suspicious osseous lesions are identified. Mild lumb ar spine levoscoliosis is present. The central canal and neural foramen are suboptimally assessed giv en CT technique. There is moderate multilevel disc space narrowing, endplate osteophytosis and facet arthrosis within the lumbar spine. Vacuum disc phenomenon is noted at multiple levels. Paravertebral soft tissues are unremarkable. SI joints are intact. Water attenuation right renal lesions favor cyst s. Several nonobstructing right renal calculi measure up to 4 mm. IMPRESSION: 1. No acute lumbar spine fracture or subluxation. 2. Moderate multilevel degenerative disc disease and facet arthrosis within the lumbar spine. Subopti mal evaluation of the central canal and neural foramen given CT technique. ACT 112: Negative or not required by law. Electronically signed by: Shon Palencia M.D. 09/20/2024 1:28 PM
[2024-09-20] MEDS: DICYCLOMINE HCL 20 MG TAB PO ONE (13:47)
[2024-09-20] MEDS ORDERED: POLYETHYLENE (MIRALAX) 17 GM PACK PO PRN (14:07)
[2024-09-20] MEDS ORDERED: ACETAMINOPHEN 325 MG TAB PO PRN (14:07)
[2024-09-20] MEDS ORDERED: MAGNESIUM HYDROXIDE SUSP 30 ML UDC PO PRN (14:07)
[2024-09-20] MEDS ORDERED: ONDANSETRON INJ 2 MG/ML 2 ML VIAL IV PRN (14:07)
[2024-09-20] MEDS ORDERED: LABETALOL HCL IV 5 MG/ML 20ML IV PRN (14:07)
--- NOTE | 2024-09-20 14:15 | Cardiology Consultation ---
Date of Consultation September 20, 2024 Assessment & Plan (1) Elevated troponin: (2) Tachycardia: (3) Weakness: (4) Unwitnessed fall: (5) HTN (hypertension): Plan 74-year-old male who presented to [facility] ED on 09/20/24 after experiencing an unwitnessed fall and unable to get up due to bilateral lower extremity weakness. Fell asleep reading in his chair yesterday evening. Woke up at 2:00 AM and attempted to get out of his chair. His legs gave out and he fell onto his right side. Denies hitting head upon falling or loss of consciousness. Denies lightheadedness, dizziness, or visual changes prior to fall. Generalized weakness at baseline. He lost his partner two years ago and his activity has decreased over the past two years. Lives alone and remains independent with ADLs at home. Does not use assistive devices at home. Uses cane when he goes grocery shopping and runs errands. ED work-up with negative head CT. Elevated troponins (57.9-128.5). EKG showed sinus tachycardia with premature supraventricular complexes and rate 117 bpm, no acute ischemic changes. CXR unremarkable. Lyme screen was negative. Blood pressure elevated with systolic readings 160-170s and diastolic readings in 100s. Given IV labetalol and blood pressure improved to 141/85. 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 I have reviewed the advance practitioner's documentation, and I agree with, and take responsibility for the plan of care. 74-year-old male presented to the emergency department after experiencing an unwitnessed fall and unable to get up due to bilateral lower extremity weakness. Hypertensive since admission with out evidence of dysrhythmia on telemetry. ECG demonstrating sinus rhythm with PACs, first-degree AV block. Patient denies chest discomfort or anginal symptoms. Fall likely secondary to balance disturbance and lower extremity weakness. No syncope or near syncope. Mildly elevated troponin secondary to demand ischemia in the setting of tachycardia, recent fall. Blood pressure remains elevated at this time. Agree with discontinuation of labetalol. Add carvedilol 3.125 mg twice daily. Continue lisinopril and atorvastatin as ordered. Add low-dose aspirin if no contraindication. Continue telemetry monitoring during hospitalization. Echocardiogram reveals preserved LV systolic function with mild aortic valve stenosis. Repeat resting 2D transthoracic echocardiogram recommended in 3 to 5 years for surveillance. All questions answered to patient satisfaction. Cardiology will continue to follow during hospitalization. Naeem Irving DO, [facility] History of Present Illness Reason for Consultation: Elevated troponin; R/O ACS Requesting Physician: Alia Christian PA-C Attending Physician: Sujey Fermin MD History of Present Illness 74-year-old male with PMHx significant for first degree AV block, HLD, HTN, GERD, IBS, vertigo, cervical degenerative disc disease, migraine, history of SBO s/p partial colectomy and subsequent reversal, left vertebral artery stenosis, and FILIBERTO who presented to [facility] ED on 09/20/24 for evaluation of weakness. He fell asleep reading in a chair yesterday evening. He woke up at 2:00 AM and went to get out of chair. His legs gave out and he immediately fell onto his right side. Denies hitting his head upon falling. Denies loss of consciousness. Denies lightheadedness, dizziness, or visual changes prior to fall. He was unable to walk and get himself off the floor so he proceeded to lay onto his back. He tried to make it to his bedroom, but was unable to lift himself onto his bed. He stayed on the floor until the morning when his brother arrived and called EMS. Per chart review, his brother did not notice any stroke-like symptoms, such as facial drooping, slurred speech, word finding difficulty, upon his arrival. Denies confusion after the fall. Per chart review, Head CT negative in the ED. Work-up revealed elevated troponins (57.9-128.5). EKG with no acute ischemic changes. CXR unremarkable. Lyme screen was negative. Seen today and resting comfortably in bed. His brother was not present at bedside this afternoon. He is anxious about his recent fall. He notes generalized weakness at baseline. He lost his partner two years ago and his activity has decreased over the past two years. He lives alone and remains independent with ADLs. He has help with cleaning his house, but cooks most meals for himself at home. He does not ambulate with assistive devices at home. Uses cane and an electric cart when he goes grocery shopping and runs errands. Occasional palpitations at home. He notes bilateral lower extremity swelling at baseline. Denies worsening edema. Denies chest discomfort, shortness of breath, dyspnea on exertion, lightheadedness, dizziness, syncope, orthopnea, PND, worsening edema, recent weight gain, or activity intolerance. Denies smoking, alcohol, or illicit drug use. He does not drink coffee. Drinks up to 18 ounces of water daily. Family History: Father - Multiple MIs Paternal Grandfather - Stroke Allergies Allergy/AdvReac Type Severity Reaction Status Date / Time shrimp AdvReac Unknown GI SYMPTOMS Verified 02/11/20 06:09 Home Medications Medication Instructions Recorded Confirmed Type baclofen 10 mg tablet 10 mg PO TID Muscle Spasm/Neck Pain 02/11/20 09/20/24 History dicyclomine 20 mg tablet 20 mg PO QID 02/11/20 09/20/24 History ketoconazole 2 % topical cream 1 applic topical UD 02/11/20 09/20/24 History atorvastatin 40 mg tablet 40 mg PO QAM 09/20/24 09/20/24 History [id number]-fareiutqihslc-wjhropdg 1 tab PO Q6H PRN Abdominal 09/20/24 09/20/24 History 50 mg-325 mg-40 mg tablet Pain/Neck Pain lisinopril 5 mg tablet 5 mg PO HS 09/20/24 09/20/24 History Patient History Social History Smoking Status: Never smoker Second Hand Exposure: No; Do You Dip or Chew Tobacco: No; Hx Alcohol Use: No Hx Substance Use: No Preferred Language: [place] Communication Ability: Effective In Flight Refueling Manager Required: No Beliefs That Will Affect Care: None Current Living Situation: Alone Feels Safe at Home: Yes Assistive Devices: Cane, Glasses and Walker Review of Systems Review of Systems: See HPI for pertinent positives. All others negative other than those noted in the HPI. CONSTITUTIONAL: +weakness. No change in weight, No fatigue, No fevers, No sweats or chills. HEENT: No visual changes, No epistaxis, No bleeding gums, No dysphagia, PULMONARY: No cough, sputum, or hemoptysis, No wheezing, No shortness of breath, and No recent change in breathing. CARDIOVASCULAR: No chest pain, No dyspnea on exertion, No edema, No palpitations, No syncope, No claudication, No calf pain. GASTROINTESTINAL: No change in appetite, No abdominal pain, No change in bowel habits, No significant heartburn, No nausea, No vomiting, No diarrhea, No constipation, No blood in stools or black tarry stools, No dysphagia. HEMATOLOGIC: No abnormal bleeding and No bruising. NEUROLOGICAL: +fall. No dizziness, No lightheadedness, Normal balance, No headaches, and No weakness. PSYCH: No sleep disturbances, No mood changes. Physical Exam Physical Exam: Vital signs within normal limits as above. General: Well developed and nourished. No acute distress. A+Ox3. HEENT: Normocephalic. Atraumatic. EOMI. Conjunctiva and sclera clear. NECK: Trachea midline. No thyromegaly. No carotid bruits. No JVD. Carotid upstrokes are brisk. Heart: Irregular rhythm. Normal rate. S1 and S2 noted. No murmur. No rubs or gallops. PMI non displaced. Lungs: No acute respiratory distress. Clear to auscultation. No wheezes.No rhonchi. No rales. Abdomen: Protuberant. Normal bowel sounds. Soft. Nontender. No abdominal bruits. Extremities: Normal capillary refill. +1 BLE pitting edema. No clubbing or cyanosis. Skin: Warm and dry. NEURO: No focal deficits. PSYCH: Appropriate affect and insight. Results & Data Vital Signs (Past 12 Hours) Vital Signs Temp Pulse Resp BP Pulse Ox O2 Del Method 09/20/24 13:09 80 16 160/101 H 97 Room Air 09/20/24 12:45 77 167/84 H 09/20/24 12:17 106 H 146/110 H 09/20/24 12:00 118 H 22 146/110 H 96 09/20/24 11:30 106 H 19 171/111 H 95 09/20/24 11:00 105 H 19 168/101 H 95 09/20/24 10:30 120 H 24 162/125 H 97 09/20/24 09:30 107 H 18 160/100 H 95 09/20/24 09:16 117 H 09/20/24 09:11 103 H 20 94 Room Air 09/20/24 08:56 36.5 C 122 H 16 169/109 H 95 Room Air Laboratory Results Cardiac Enzymes 09/20/24 09/20/24 Range/Units 09:13 11:00 AST 21 (13-39) U/L Troponin I High Sens 57.9 H* 128.5 H* D (0-20) pg/ml CBC 09/20/24 Range/Units 09:13 WBC 8.36 (4.8-10.8) K/ul RBC 4.88 (4.70-6.10) M/uL Hgb 15.8 (14.0-18.0) g/dl Hct 45.8 (42.0-52.0) % Plt Count 120 L (130-400) K/uL Neut # (Auto) 7.15 H (1.40-6.50) K/uL Lymph # (Auto) 0.57 L (1.20-3.40) K/uL Stafford # (Auto) 0.55 (0.11-0.59) K/uL Eos # (Auto) 0.04 (0.00-0.50) K/uL Baso # (Auto) 0.02 (0.00-0.20) K/uL Comprehensive Metabolic Panel 09/20/24 Range/Units 09:13 Sodium 140 (136-145) mmol/L Potassium 3.8 (3.5-5.1) mmol/L Chloride 107 (98-107) mmol/L Carbon Dioxide 21 (21-32) mmol/L BUN 10 (6-23) mg/dl Creatinine 0.78 (0.6-1.4) mg/dl Glucose 127 H (70-99(Fasting)) mg/dl Calcium 9.3 (8.6-10.3) mg/dl AST 21 (13-39) U/L ALT 16 (7-52) U/L Alkaline Phosphatase 96 (34-104) U/L Total Protein 7.3 (6.0-8.3) gm/dl Albumin 4.2 (3.4-5.0) gm/dl Intake and Output 09/19/24 09/20/24 09/20/24 22:59 06:59 14:59 Intake Total 1000 / 1000 Balance 1000 / 1000 Intake: IV 1000 / 1000 Sodium Chloride 0.9% 1,000 ml @ 1000 / 1000 999 mls/hr IV .Q1H1M ONE Rx#: [id number] Other: Weight 89.3 kg Weight Measurement Method Built in [facility] Patient Weight 09/21/24 06:59 Weight 89.3 kg Diagnostic Findings ECHO from 09/20/24 Left ventricular systolic function is normal LVEF 60-65% Mild concentric left ventricular hypertrophy Aortic valve is not well visualized Aortic valve is mildly calcified Mild valvular aortic stenosis Moderate mitral annular calcification Aortic root is mildly enlarged, 4.1 cm Ascending aorta is mildly enlarged, 4.1 cm EKG from 09/20/24 Sinus tachycardia with premature supraventricular complexes 117 QTc 463 Chest X-Ray 09/20/24 09:06 XR chest 1V portable CLINICAL HISTORY: Chest pain, nonspecific COMPARISON STUDY: Chest radiograph October 26, 2017. FINDINGS: Lung volumes are normal. Lungs are clear. There is no pneumothorax or pleural effusion. Cardiomegaly is unchanged. Mediastinal contours are normal. There is no evidence for pulmonary edema. IMPRESSION: No acute cardiopulmonary findings. ACT 112: Negative or not required by law. Electronically signed by: Shon Palencia M.D. 09/20/2024 9:[address] 09/20/24 09:06 CT head/brain wo con CLINICAL HISTORY: 74 years-old Male with fall. Acute head trauma status post fall TECHNIQUE: Multiple axial CT images of the head were obtained without contrast. A dose lowering technique was utilized adhering to the principles of ALARA. CT DOSE: 703.85 mGy.cm COMPARISON: Brain MRI 02/11/2020 FINDINGS: No acute intracranial hemorrhage, midline shift, intracranial mass, hydrocephalus, territorial ischemia or abnormal extra-axial collection. Involutional changes with chronic microvascular ischemic disease. The calvarium is intact. Prior partial ethmoidectomy. The mastoid air cells are clear. IMPRESSION: No acute intracranial abnormality or calvarial fracture. ACT 112: Negative or not required by law. The above report was generated using voice recognition software. It may contain grammatical, syntax or spelling errors. Electronically signed by: Galo Pandya M.D. 09/20/2024 9:25 AM Knee X-Ray 09/20/24 12:00 XR knee RT 1 or 2V routine CLINICAL HISTORY: Recent fall, R knee pain COMPARISON: None FINDINGS: Lucency within the medial tibial plateau is noted with suspected mild depression. However, no significant joint effusion is present. No additional fractures are identified. There is mild medial and patellofemoral compartment osteophytosis. IMPRESSION: Lucency within the medial tibial plateau with suspected mild depression. This favors a medial tibial plateau fracture however there is no significant joint effusion. A CT of the right knee is recommended for confirmation. ACT 112: Negative or not required by law. Electronically signed by: Shon Palencia M.D. 09/20/2024 12:[address] 09/20/24 12:[address] WITHOUT CONTRAST CLINICAL HISTORY: Recent fall, BLE weakness COMPARISON STUDY: CT of the abdomen and pelvis October 24, 2017. TECHNIQUE: Axial images of the lumbar spine were obtained without IV contrast. Sagittal and coronal reformats were viewed. Automated exposure control was utilized for the study. A dose lowering technique was utilized adhering to the principles of ALARA. FINDINGS: For purposes of numbering on this exam, the L5-S1 disc space is assigned to axial image 323 of 377. There are no lumbar spine fractures. No suspicious osseous lesions are identified. Mild lumbar spine levoscoliosis is present. The central canal and neural foramen are suboptimally assessed given CT technique. There is moderate multilevel disc space narrowing, endplate osteophytosis and facet arthrosis within the lumbar spine. Vacuum disc phenomenon is noted at multiple levels. Paravertebral soft tissues are unremarkable. SI joints are intact. Water attenuation right renal lesions favor cysts. Several nonobstructing right renal calculi measure up to 4 mm. IMPRESSION: 1. No acute lumbar spine fracture or subluxation. 2. Moderate multilevel degenerative disc disease and facet arthrosis within the lumbar spine. Suboptimal evaluation of the central canal and neural foramen given CT technique. ACT 112: Negative or not required by law. Electronically signed by: Shon Palencia M.D. 09/20/2024 1:28 PM (5) HTN (hypertension) Hypertension type: unspecified Qualified Code(s): I10 - Essential (primary) hypertension
[2024-09-20] MEDS: ENOXAPARIN INJ 40 MG/0.4 ML SYR SQ SCH (14:40)
[2024-09-20] MEDS: BUTALBITAL/ACETAMIN/CAFFEINE TAB PO PRN (14:57)
--- NOTE | 2024-09-20 16:25 | CT Scan Report ---
EXAM: CT Right Lower Extremity Without Intravenous Contrast Knee INDICATION: Assess x-ray findings. TECHNIQUE: Axial computed tomography images of the right knee without intravenous contrast. Sagittal and coronal reformatted images were created and reviewed. This CT exam was performed using one or more of the following dose reduction techniques: automated exposure control, adjustment of the mA and/or kV according to patient size, and/or use of iterative reconstruction technique. COMPARISON: None available. FINDINGS: Bones/joints: Generalized osseous demineralization noted. There is more pronounced demineralization subcortical medial femoral condyle. There is moderate subchondral cystic change in the medial tibial plateau with chronic appearing depression. No definite acute fracture line is noted. Small joint effusion noted. There is mild patellofemoral spurring. There is narrowing of the medial joint compartment with associated gas. There is mild lateral tibial translation. Soft tissues: No abnormality noted. Vasculature: Mild atherosclerotic calcification noted. No aneurysm. IMPRESSION: 1. No definite acute fracture. 2. Changes noted consistent with old medial tibial plateau fracture and secondary osteoarthritis of the medial compartment. 3. If additional imaging is clinically warranted, MRI is the modality of choice. ACT 112: Negative or not required by law. Electronically signed by Daja Quijano 09-20-2024 4:24 PM
[2024-09-20] MEDS: carvediloL 3.125 MG TAB PO SCH (16:29)
[2024-09-20] MEDS: DICYCLOMINE HCL 20 MG TAB PO SCH (16:29)
--- OUTSIDE RECORDS SUMMARY | 2024-09-20 16:55 | External Medical Summary | Summary of Care ---
Author Name Unknown Organization [facility] Address [address] [place] [address] Phone [phone] Care Team Providers Care Perianesthesia Rn Name Role Phone Lora Wong MD Primary Care Provider [phone] Reason for Visit * Reason Onset Date Comments Medication Refill 09/13/2024 Encounter Details Date Type Department Care Team (Late st Contact Info) Description 09/13/2024 Refill Family [facility] [address] [facility] [address] Lora [facility] MD [address] [facility] [address] Allergies Active Allergy Reactions Criticality Noted Date Comments Shrimp Flavor 09/16/2015 shrimp seafood documented as of this encounter (statuses as of 09/14/2024) Medications meclizine (ANTIVERT) 25 MG Tablet Take 1 Tab by mouth 3 times a day as needed for Dizziness. 30 Tab 1 0 Active Ketoconazole 2 % External CreamIndication s:Seborrheic dermatitis Apply topically to affected area daily. Apply to face 60 g 5 3 Active Lisinopril 5 MG Oral Tablet (Prinivil) Take 1 Tablet by mouth in the morning. 30 Tablet 11 4 Active Dicyclomine HCl 20 MG Oral Tablet (Bentyl)Indicat ions:Gastroesop hageal reflux disease without esophagitis TAKE ONE TABLET BY MOUTH FOUR TIMES A DAY NEEDED FOR ABDOMINAL PAIN 120 Tablet 11 4 Active Atorvastatin Calcium 40 MG Oral Tablet (Lipitor) Take 1 Tablet by mouth in the morning. 90 Tablet 3 4 Active Butalbital-APAP -Caffeine 50-325-40 MG Oral Tablet (Fioricet) Take 1 Tablet by mouth every 6 hours as needed (abd pain/neck pain). 90 Tablet 4 Active Baclofen 10 MG Oral Tablet (Lioresal) 1 tablet three times a day as needed for neck pain 90 Tablet 1 4 Active Baclofen 10 MG Oral Tablet (Lioresal) 1 tablet three times a day as needed for neck pain 90 Tablet 1 4 09/13/20 24 Discontinu ed(Refill) documented as of this encounter (statuses as of 09/14/2024) Active Problems Problem Noted Date Diagnosed Date First degree AV block 11/04/2022 Overweight (BMI 25.0-29.9) 11/04/2022 DDD (degenerative disc disease), cervical 2021 Irritable bowel syndrome with diarrhea 1 Dyslipidemia 05/21/2020 Stenosis of left vertebral artery 02/20/2020 History of partial colectomy 03/04/2018 Overview (03/04/2018): After diverticular abscess and rupture HTN, goal below 130/80 03/25/2017 Gastroesophageal reflux disease without esophagi tis 10/22/2015 Migraine without status migrainosus, not intract able documented as of this encounter (statuses as of 09/14/2024) Resolved Problems Problem Noted Date Diagnosed Date Resolved Date FILIBERTO (generalized anxiety disorder) 01/18/2021 01/27/2021 Overview (01/18/2021): Neurology started him on lexapro; it was felt that his vertiginous episodes were related to anxiety and NOT a TIA or the incidentally found vestibular artery stenosis Acute vestibular syndrome 02/20/2020 Chronic neck pain 02/20/2020 03/24/2022 documented as of this encounter (statuses as of 09/14/2024) Immunizations Name Administration Dates Next Due COVID-19 mRNA, LNP-s, No Pre serve, 2-Dose Series (Moderna) 01/16/2021,12/19/2020 COVID-19, MRNA-LNP, PF, 30 M CG/0.3 mL, 12 YRS AND ABOVE, IM (PFIZER-Comirnaty) 11/30/2023 Pneumococcal Conjugate Vacc, 13 Valent (Prevnar) 04/03/2016 Pneumococcal Polysaccharide PPV23 (Pneumovax) 04/15/2017 RSV Vac., Bivalent, Perfusio n F, Pf,0.5 Ml (Abrysvo) 11/30/2023 Season Influenza, Quad, PF, Adjuvanted, 65+ Yrs, IM (FLUAD) 07/30/2022,06/19/2020 Seasonal Influenza Virus Vac cine, Unspecified Formulation 08/20/2021,06/19/2020,06/03/2019,07/23,06/25/2017,07/16/2016 Seasonal Influenza, Quadriva lent Hd (Fluzone Hd) 09/23/2023,08/20/2021 Seasonal Influenza, Quadriva lent, No Preserve, IM 07/23/2018,07/16/2016 Seasonal Influenza, Trivalen t, Adjuvanted, 65+ YRS, PF, (Fluad) 06/03/2019,07/20/2018 TDAP (age 10 and older)(Boostrix) 02/14/2019 Varicella Zoster Vaccine (Adult) 09/08/2018,04/03 Zoster Vaccine Recombinant (Shingrix) 12/19/2018 ,09/08/2018 documented as of this encounter Social History Tobacco Use Types Packs/Day Years Used Date Smoking Tobacco: Never Smokeless Tobacco: Never Comments:smoked briefly as t eenager Alcohol Use Standard Drinks/Week Comments Yes 0 (1 standard drink = 0.6 oz pur e alcohol) rarely-gin PHQ-2 Answer Date Recorded PHQ Adult Total Score 1 05/31/2024 Hunger Vital Sign Answer Date Recorded Within the past 12 months, y ou worried that your food would run out before you got the money to buy more. Never true 11/17/19 24 Within the past 12 months, t he food you bought just didn't last and you didn't have money to get more. Never true 11/17/2023 Childcare Answer Date Recorded Do you feel overwhelmed with taking care of a child, family member or friend? No 11/17/2023 Does your family need help f inding childcare? (Household - for ages 0-17 years) Not on file 11/17/2023 Clothing Answer Date Recorded Have you been unable to get clothing when it was really needed? No 11/17/2023 Is your family able to get c lothes or diapers when needed? (Household - for ages 0-17 years) Not on file 11/17/2023 Personal Safety Answer Date Recorded Do you feel unsafe or have concerns for your saf ety? No 11/17/2023 Do you have concerns for you r family's safety? (Household - for ages 0-17 years) Not on file 11/17/2023 Utilities Answer Date Recorded Do you have trouble paying y our heating, water, or electric bill? No 11/17/2023 Is your family able to pay t he heat, water, or electric bill? (Household - for ages 0-17 years) Not on file 11/17/2023 Does your family have access to good internet? (Household - for ages 0-17 years) Not on file 11/17/2023 Employment Status Answer Date Recorded Are you unemployed or without regular income? No 11/17/2023 Does the household have a re gular source of income? (Household - for ages 0-17 years) Not on file 11/17/2023 Social Connections Answer Date Recorded How often do you feel lonely or isolated from th ose around you? Never 11/17/2023 Financial Resource Strain Answer Date R ecorded Do you have any trouble payi ng for your medications, or do you think you might in the future? No 11/17/2023 Does your family have troubl e paying for medicine? (Household - for ages 0-17 years) Not on file 11/17/2023 Transportation Needs Answer Date Record ed READ ONLY Do you have troubl e getting a ride to medical visits or work? Never True 11/17/2023 Does your family have a hard time getting a ride to doctors visits? (Household - for ages 0-17 years) Not on file 11/17/2023 Has lack of transportation k ept you from medical appointments, meetings, work, or from getting things needed for daily living? Check all that apply. (Adult - for ages 18 years and over) Not on file 11/17/2023 Do you (or your family) have trouble finding or paying for a ride (transportation)? (Household - for ages 0-17 years) Not on file 11/17/2023 Housing Stability Answer Date Recorded Do you currently live in a s helter or have no steady place to sleep at night? No 11/17/2023 READ ONLY Do you think you a re at risk of becoming homeless? No 11/17/2023 Does your family worry about paying for your home or becoming homeless? (Household - for ages 0-17 years) Not on file 0 11/17/2023 Are you homeless or worried that you might be in the future? (Adult - for ages 18 years and over) Not on file Are you (or your family) haja eless or worried that you might be in the future? (Household - for ages 0-17 years) Not on file Food Insecurity Answer Date Recorded Do you need food for this week? No 11/17/2023 Are you able to get enough f ood for your family? (Household - for ages 0-17 years) Not on file 11/17/2023 Does your family need food t his week? (Household - for ages 0-17 years) Not on file 11/17/2023 Do you always have enough fo od for your family? 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 Not on file Not o n file Not on file documented as of this encounter Miscellaneous Notes * Telephone Encounter - Lora Wong MD - 09/14/2024 2:15 PM ESTSigned Prescriptions: Disp Refills Baclofen 10 MG Oral Tablet (Lioresal) 90 Tab*1 Si tablet three times a day as needed for neck pain Authorizing Provider: LORA WONG * Telephone Encounter - Neo Waller [facility] - 09/14/2024 1:26 PM EST Pending Prescriptions: Disp Refills Baclofen 10 MG Oral Tablet (Lioresal) 90 Tab*1 Si tablet three times a day as needed for neck pain * Telephone Encounter - Neo Waller [facility] - 09/14/2024 1:26 PM EST Refill pharmacists currently not authorized to approve refills for this class of medication per refill protocol. Please approve if appropriate. Pending Prescriptions: Disp Refills Baclofen 10 MG Oral Tablet (Lioresal) 90 Tab*1 Si tablet three times a day as needed for neck pain 07/24/2024 (in office), Visit date not found (telemedicine) Visit date not found If no future appointments scheduled, and last appointment is greater than a year ago, please schedule patient for a follow-up appointment Last date the medication was ordered: 07/17/2024 Pharmacy: [facility] [id number] Is this request for a controlled substance? no Patient Phone Numbers Shopping Mail [phone] Labs: Lab Results Component Value Date/Time CREAT 0.9 07/24/2024 03:38 PM CREAT 0.9 10/01/2020 01:57 PM POTASSIUM 3.9 07/24/2024 03:38 PM POTASSIUM 4.4 10/01/2020 01:57 PM TSH 1.14 09/21/2016 03:21 PM LDL 65 05/26/2023 04:23 PM LDL 67 05/21/2020 04:31 PM LDL NOT APPLICABLE 05/21/2020 04:31 PM ALT 15 07/24/2024 03:38 PM ALT 19 05/21/2020 04:31 PM Thank You, Neo Waller, Pharm-D Clinical Pharmacist Telepharmacy 09/14/2024, 1:26 PM documented in this encounter Plan of Treatment Upcoming Encounters Date Type Department Care Team (Late st Contact Info) Description 06/20/2025 2:30 PM EDT Nurse Only Ancillary [facility] [address] [facility] [place] [address] Zac, Nurse Annual Wellness [facility] [place] [address] Health Maintenance Due Date Last Done Comments COVID-19 Vaccine ( season) 2024 11/30/2023, 01/27/2022, 09/20/2021, Additional history exists Influenza Vaccine (FLU shot) (#1) 2024 09/23/2023, 07/30/2022, 08/20/2021, Additional history exists Adult Wellness Visit 05/31/2025 05/31/2024, 05/26/20 23 Depression Screening 05/31/2025 05/31/2024 GFR 07/24/2025 07/24/2024, 05/05, 03/24/2022, Additional history exists Albumin/Creatinine Ratio 06/01/2026 06/01/2023, 08/04 DTap/Tdap Vaccines (2 - Td or Tdap) 02/14/2029 02/14/2019 Colonoscopy Discontinued 12/06/2015, 01/2016, 12/05/2015 Colorectal Cancer Screening Discontinued Pneumococcal Vaccine: 65+ Years Completed 04/15/2017, 04/03/2016 Zoster Vaccines Completed 12/19/2018, 03/2018, 09/08/2018, Additional history exists Cologuard Discontinued Fecal Occult Blood Test Discontinued HPV (Gardasil) Vaccine Aged Out No lo nger eligible based on patient's age to complete this topic Hepatitis B Vaccine Aged Out No longe r eligible based on patient's age to complete this topic MENINGOCOCCAL (MENACTRA/MENVEO) Aged Out No longer eligible based on patient's age to complete this topic Sigmoidoscopy Discontinued documented as of this encounter Medical Devices Not on filedocumented as of this encounter Care Teams Perianesthesia Rn Relationship Specialty Start Date End Date Lora Wong MD [address] [facility] [place] [address] PCP - General Family Medicine 01/18/21 documented as of this encounter
--- OUTSIDE RECORDS SUMMARY | 2024-09-20 16:55 | External Medical Summary | Summary of Care ---
Author Name Unknown Organization [facility] Address [address] [place] [address] Phone [phone] Care Team Providers Care Fashion Consultant Sales Name Role Phone Lora Wong MD Primary Care Provider [phone] Reason for Visit * Reason Onset Date Comments Medication Refill 08/30/2024 Encounter Details Date Type Department Care Team (Late st Contact Info) Description 08/30/2024 Refill Family [facility] [address] [facility] [address] [facility] [address] [facility] [address] Allergies Active Allergy Reactions Criticality Noted Date Comments Shrimp Flavor 09/16/2015 shrimp seafood documented as of this encounter (statuses as of 08/31/2024) Medications meclizine (ANTIVERT) 25 MG Tablet Take [...] ABDOMINAL PAIN 120 Tablet 11 4 Active Baclofen 10 MG Oral Tablet (Lioresal) 1 tablet three times a day as needed for neck pain 90 Tablet 1 4 Active Atorvastatin Calcium 40 MG Oral Tablet (Lipitor) Take 1 Tablet by mouth in the morning. 90 Tablet 3 4 Active Butalbital-APAP -Caffeine 50-325-40 MG Oral Tablet (Fioricet) Take 1 Tablet by mouth every 6 hours as needed (abd pain/neck pain). 90 Tablet 4 Active Butalbital-APAP -Caffeine 50-325-40 MG Oral Tablet (Fioricet) Take 1 Tablet by mouth every 6 hours as needed (abd pain/neck pain). 90 Tablet 4 08/30/20 24 Discontinu ed(Refill) documented as of this encounter (statuses as of 08/31/2024) Active Problems Problem Noted Date Diagnosed Date [...] as of this encounter (statuses as of 08/31/2024) Resolved Problems Problem Noted Date Diagnosed Date Resolved Date FILIBERTO (generalized anxiety disorder) 01/18/2021 01/27/2021 Overview (01/18/2021): Neurology started him on lexapro; it was felt that his vertiginous episodes were related to anxiety and NOT a TIA or the incidentally found vestibular artery stenosis Acute vestibular syndrome 02/20/2020 Chronic neck pain 02/20/2020 03/24/2022 documented as of this encounter (statuses as of 08/31/2024) Immunizations Name Administration Dates Next Due COVID-19 [...] No 11/17/2023 Does the household have a [facility]ilth-[facility]le health center[facility] source of income? (Household - for ages [...] Telephone Encounter - Lora Wong MD - 08/31/2024 11:13 PM ESTSigned Prescriptions: Disp Refills Uxygbqqolv-CCMW-Yhllspxt 50-325-40 MG Oral*90 Tab*0 Sig: Take 1 Tablet by mouth every 6 hours as needed (abd pain/neck pain). Authorizing Provider: LORA WONG * [facility] 5:26 AM EST Pending Prescriptions: Disp Refills Njaqcazmvy-CFEM-Uculdnnl 50-325-40 MG Oral*90 Tab*0 Sig: Take 1 Tablet by mouth every 6 hours as needed (abd pain/neck pain). Electronically signed by Sravanthi Vazquez [facility] at 08/31/2024 5:26 AM EST * Telephone Encounter - Sravanthi Vazquez [facility] - 08/31/2024 5:26 AM EST I have reviewed the patients controlled substance dispensing history in the Prescription Drug Monitoring Program in compliance with the [facility] regulations before prescribing a controlled substance. PDMP checked on 08/31/2024. Pending Prescriptions: Disp Refills Xshjkpyinc-ZNGI-Szimlhyz 50-325-40 MG Ora*90 Tab*0 Sig: Take 1 Tablet by mouth every 6 hours as needed (abd pain/neck pain). Last Visit: 07/24/2024 (in office), Visit date not found (telemedicine) Next Visit: Visit date not found Date medication was last filled: 08/11 Date medication is due for refill: 09/02 Pharmacy: [facility] Is this request for a controlled substance? Yes and Urine Drug Screen Not completed Toxicology results: No results found for this or any previous visit. Please approve if appropriate. Thank you, Sravanthi Vazquez, PharmD. Clinical Pharmacist [facility] ([facility]) 08/31/2024, 5:26 AM Electronically signed by Sravanthi Vazquez [facility] at 08/31/2024 5:26 AM EST documented in this encounter Plan of Treatment Upcoming Encounters Date Type Department Care Team (Late st Contact Info) Description 06/20/2025 2:30 PM EDT Nurse Only Ancillary [facility] [address] [facility] [place] [address] [facility] Nurse Annual Wellness [facility] [address] [facility] [place] [address] Health Maintenance Due Date Last Done Comments [...] filedocumented as of this encounter Care Teams Fashion Consultant Sales Relationship Specialty Start Date End Date Lora Wong MD [address] [place] [address] PCP - General Family Medicine 01/18/21 documented as of this encounter
--- OUTSIDE RECORDS SUMMARY | 2024-09-20 16:55 | External Medical Summary | Summary of Care ---
Author Name Unknown Organization [facility] Address [address] [place] [address] Phone [phone] Care Team Providers Care Window And Door Installer Name Role Phone Lora Wong MD Primary Care Provider [phone] Reason for Visit * Reason Onset Date Comments Medication Refill 08/10/2024 Encounter Details Date Type Department Care Team (Late st Contact Info) Description 08/10/2024 Refill Family [facility] [address] [facility] [place] [address] Lora Wong MD [address] [facility] [address] Allergies Active Allergy Reactions Criticality Noted Date Comments Shrimp Flavor 09/16/2015 shrimp seafood documented as of this encounter (statuses as of 08/11/2024) Medications meclizine (ANTIVERT) 25 MG Tablet Take [...] needed (abd pain/neck pain). 90 Tablet 4 08/10/20 24 Discontinu ed(Refill) documented as of this encounter (statuses as of 08/11/2024) Active Problems Problem Noted Date Diagnosed Date [...] as of this encounter (statuses as of 08/11/2024) Resolved Problems Problem Noted Date Diagnosed Date Resolved Date FILIBERTO (generalized anxiety disorder) 01/18/2021 01/27/2021 Overview (01/18/2021): Neurology started him on lexapro; it was felt that his vertiginous episodes were related to anxiety and NOT a TIA or the incidentally found vestibular artery stenosis Acute vestibular syndrome 02/20/2020 Chronic neck pain 02/20/2020 03/24/2022 documented as of this encounter (statuses as of 08/11/2024) Immunizations Name Administration Dates Next Due COVID-19 [...] No 11/17/2023 Does the household have a presbyterian hospitallar source of income? (Household - for ages [...] Telephone Encounter - Lora Wong MD - 08/11/2024 8:19 AM ESTSigned Prescriptions: Disp Refills Nidqjxckqv-XLNC-Ixetgjno 50-325-40 MG Oral*90 Tab*0 Sig: Take 1 Tablet by mouth every 6 hours as needed (abd pain/neck pain). Authorizing Provider: LORA WONG * [facility] 6[facility]01 AM EST Pending Prescriptions: Disp Refills Rssbcgwlla-PMPK-Idjjnhqu 50-325-40 MG Oral*90 Tab*0 Sig: Take 1 Tablet by mouth every 6 hours as needed (abd pain/neck pain). * Telephone Encounter - Sravanthi Vazquez [facility] - 08/11/2024 6:01 AM EST I have reviewed the patients controlled substance dispensing history in the Prescription Drug Monitoring Program in compliance with the [facility] regulations before prescribing a controlled substance. PDMP checked on 08/11/2024. Pending Prescriptions: Disp Refills Yqryirnvhh-WPHS-Cekspqnj 50-325-40 MG Ora*90 Tab*0 Sig: Take 1 Tablet by mouth every 6 hours as needed (abd pain/neck pain). Last Visit: 07/24/2024 (in office), Visit date not found (telemedicine) Next Visit: Visit date not found Date medication was last filled: 07/20 Date medication is due for refill: 08/11 Pharmacy: [facility] Is this request for a controlled substance? Yes and Urine Drug Screen Not completed Toxicology results: No results found for this or any previous visit. Please approve if appropriate. Thank you, Sravanthi Vazquez, PharmD. Clinical Pharmacist [facility] ([facility]) 08/11/2024, 6:01 AM documented in this encounter Plan of Treatment Upcoming Encounters Date Type Department Care Team (Late st Contact Info) Description 06/20/2025 2:30 PM EDT Nurse Only Ancillary [facility] [address] [facility] [place] [address] [facility] Nurse Annual Wellness [facility] [address] [facility] [place] [address] Health Maintenance Due Date Last Done Comments [...] filedocumented as of this encounter Care Teams Window And Door Installer Relationship Specialty Start Date End Date Lora Wong MD [address] [place] [address] PCP - General Family Medicine 01/18/21 documented as of this encounter
--- OUTSIDE RECORDS SUMMARY | 2024-09-20 16:56 | External Medical Summary | Summary of Care ---
Author Name Unknown Organization [facility] Address [address] [place] [address] Phone [phone] Care Team Providers Care Intake Clinician Name Role Phone Lora Wong MD Primary Care Provider [phone] Reason for Visit * Reason Onset Date Comments Medication Refill 05/18/2024 Encounter Details Date Type Department Care Team (Late st Contact Info) Description 05/18/2024 Refill Family Practice [facility] [address] [place] [address] Lora Wong MD [address] [facility] [place] [address] Allergies Active Allergy Reactions Criticality Noted Date Comments Shrimp Flavor 09/16/2015 shrimp seafood documented as of this encounter (statuses as of 05/19/2024) Medications Medication Sig Dispensed Refills Start Date End Date Status meclizine (ANTIVERT) 25 MG Tablet Take 1 Tab by mouth 3 times a day as needed for Dizziness. 30 Tab 1 02/20/2020 Active Ketoconazole 2 % External CreamIndications: Seborrheic dermatitis Apply topically to affected area daily. Apply to face 60 g 5 11/23/2022 Active Atorvastatin Calcium 40 MG Oral Tablet (Lipitor) Take 1 Tablet by mouth in the morning. 90 Tablet 3 08/02/2023 Active Lisinopril 5 MG Oral Tablet (Prinivil) Take 1 Tablet by mouth in the morning. 30 Tablet 11 10/07/2023 Active Dicyclomine HCl 20 MG Oral Tablet (Bentyl)Indicatio ns:Gastroesophage al reflux disease without esophagitis TAKE ONE TABLET BY MOUTH FOUR TIMES A DAY NEEDED FOR ABDOMINAL PAIN 120 Tablet 11 11/29/2023 Active Fvarksfysl-QYNS-R affeine 50-325-40 MG Oral Tablet (Fioricet) Take 1 Tablet by mouth every 6 hours as needed (abd pain/neck pain). 90 Tablet 05/12/2024 Active Baclofen 10 MG Oral Tablet (Lioresal) 1 tablet three times a day as needed for neck pain 90 Tablet 1 05/19/2024 Active Baclofen 10 MG Oral Tablet (Lioresal) 1 tablet three times a day as needed for neck pain 90 Tablet 1 03/21/2024 05/18/2024 Discontinue d(Refill) documented as of this encounter (statuses as of 05/19/2024) Active Problems Problem Noted Date Diagnosed Date First degree AV block 11/04/2022 Overweight (BMI 25.0-29.9) 11/04/2022 DDD (degenerative disc disease), cervical 2021 Irritable bowel syndrome with diarrhea Dyslipidemia 05/21/2020 Stenosis of left vertebral artery 02/20/2020 History of partial colectomy 03/04/2018 Overview: After diverticular abscess and rupture HTN, goal below 130/80 03/25/2017 Gastroesophageal reflux disease without esophagi tis 10/22/2015 Migraine without status migrainosus, not intract able documented as of this encounter (statuses as of 05/19/2024) Resolved Problems Problem Noted Date Diagnosed Date Resolved Date FILIBERTO (generalized anxiety disorder) 01/18/2021 01/27/2021 Overview: Neurology started him on lexapro; it was felt that his vertiginous episodes were related to anxiety and NOT a TIA or the incidentally found vestibular artery stenosis Acute vestibular syndrome 02/20/2020 Chronic neck pain 02/20/2020 03/24/2022 documented as of this encounter (statuses as of 05/19/2024) Immunizations Name Administration Dates Next Due COVID-19 mRNA, LNP-s, No Pre serve, 2-Dose Series (Moderna) 01/16/2021,12/19/2020 COVID-19, MRNA-LNP, 23-24, P F, 30 MCG/0.3 mL, 12 YRS AND ABOVE, IM (PFIZER-Comirnaty) [...] 07/23/2018,07/16/2016 Seasonal Influenza, Trivalen t, Adjuvanted, 65+ yrs 06/03/2019,07/20/2018 TDAP (age 10 and older)(Boostrix) 02/14/2019 [...] Date Recorded PHQ Adult Total Score 1 05/26/2023 Hunger Vital Sign Answer Date Recorded Within [...] No 11/17/2023 Does the household have a [facility] source of income? (Household - for ages [...] Assigned at Male 01/16/2022 8:12 PM EDT Gender Identity Male 01/16/2022 8:12 PM EDT Sexual Orientation Nur 01/16/2022 8: 12 PM EDT Job Start Date Occupation Industry Not on file Not on file Not on file documented as of this encounter Miscellaneous Notes * Telephone Encounter - Lora Wong MD - 05/19/2024 9:56 AM EDTSigned Prescriptions: Disp Refills Baclofen 10 MG Oral Tablet (Lioresal) 90 Tab*1 Si tablet three times a day as needed for neck pain Authorizing Provider: LORA WONG * Telephone Encounter - Lottie Hirsch LPN - 05/19/2024 9:27 AM EDTPending Prescriptions: Disp Refills Baclofen 10 MG Oral Tablet (Lioresal) 90 Tab*1 Si tablet three times a day as needed for neck pain * Telephone Encounter - Lottie Hirsch LPN - 05/19/2024 9:27 AM EDT BACLOFEN 10mg relieves muscle spasm, tightness, pain in all sides of my neck due to osteoarthritis cervical vertebrae, and right knee, cold air (including summer air conditioning) stormy weather, aggravate pain, no adverse reactions other meds, no side effects, use as prescribed Did you pend patient's preferred pharmacy and medication before forwarding?yes Pharmacy: [facility] [id number] Pending Prescriptions: Disp Refills Baclofen 10 MG Oral Tablet (Lioresal) 90 Tab*1 Si tablet three times a day as needed for neck pain Last Visit: 11/30/2023 (in office), Visit date not found (telemedicine) Next Visit: 06/09/2024 If no future appointments scheduled, and last appointment is greater than a year ago, please schedule patient for a follow-up appointment Last date the medication was ordered: 03/21/2024 Is this request for a controlled substance?No Urine Drug Screen:No results found for this or any previous visit. Patient Phone Numbers Labs: Lab Results Component Value Date/Time CREAT 1.0 05/26/2023 04:23 PM CREAT 0.9 10/01/2020 01:57 PM POTASSIUM 4.3 05/26/2023 04:23 PM POTASSIUM 4.4 10/01/2020 01:57 PM TSH 1.14 09/21/2016 03:21 PM LDLCALC 65 05/26/2023 04:23 PM LDLCALC 67 05/21/2020 04:31 PM LDLDIRECT NOT APPLICABLE 05/21/2020 04:31 PM ALT 21 05/26/2023 04:23 PM ALT 19 05/21/2020 04:31 PM * Telephone Encounter - Peter Burns - 05/18/2024 8:58 PM EDTPending Prescriptions: Disp Refills Baclofen 10 MG Oral Tablet (Lioresal) 90 Tab*1 Si tablet three times a day as needed for neck pain documented in this encounter Plan of Treatment Upcoming Encounters Date Type Department Care Team (Late st Contact Info) Description 05/31/2024 2:00 PM EDT Nurse Only Ancillary [facility] [address] [place] [address] aZc Nurse Annual Wellness [facility] [address] [place] [address] 06/09/2024 1:20 PM EDT Office Visit Family Practice [facility] [address] [place] [address] Lora Wong MD [address] [place] [address] Health Maintenance Due Date Last Done Comments Cologuard 1994 Fecal Occult Blood Test 1994 Sigmoidoscopy 1994 COVID-19 Vaccine ( season) 2024 11/30/2023, 01/27/2022, 09/20/2021, Additional history exists Adult Wellness Visit 05/26/2024 05/26/2023 Depression Screening 05/26/2024 05/26/2023 GFR 05/26/2024 05/26/2023, 03/05, 10/01/2020, Additional history exists Influenza Vaccine (FLU shot) (#1) 2024 09/23/2023, 07/30/2022, 08/20/2021, Additional history exists Colonoscopy 12/05/2025 12/06/2015, 01/2016, 12/05/2015 Colorectal Cancer Screening 12/05/2025 Albumin/Creatinine Ratio 06/01/2026 06/01/2023, 08/04 DTaP,Tdap,and Td Vaccines (2 - Td or Tdap) 02/14/2029 02/14/2019 Pneumococcal Vaccine: 65+ Years Completed 04/15/2017, 04/03/2016 Zoster Vaccines Completed 12/19/2018, 03/2018, 09/08/2018, Additional history exists HPV (Gardasil) Vaccine Aged Out No lo nger eligible based on patient's age to complete this topic Hepatitis B Vaccine Aged Out No longe r eligible based on patient's age to complete this topic MENINGOCOCCAL (MENACTRA/MENVEO) Aged Out No longer eligible based on patient's age to complete this topic documented as of this encounter Medical Devices Not on filedocumented as of this encounter Care Teams Intake Clinician Relationship Specialty Start Date End Date Lora Wong MD [address] [place] [address] PCP - General Family Medicine 01/18/21 documented as of this encounter
--- OUTSIDE RECORDS SUMMARY | 2024-09-20 16:56 | External Medical Summary | Summary of Care ---
Author Name Unknown Organization [facility] Address [address] [place] [address] Phone [phone] Care Team Providers Care Pourer Crane Ladle Name Role Phone Frank Crowder MD Primary Care Provider [phone] Reason for Visit * Reason Onset Date Comments Health Maintenance 06/01/2024 Encounter Details Date Type Department Care Team (Late st Contact Info) Description 06/01/2024 Telephone Family Practice [facility] [address] [place] [address] Frank Crowder MD [address] [facility] [facility] [address] [facility] Maintenance Allergies Active Allergy Reactions Criticality Noted Date Comments Shrimp Flavor 09/16/2015 shrimp seafood documented as of this encounter (statuses as of 06/01/2024) Medications Medication Sig Dispensed Refills Start Date End Date Status meclizine (ANTIVERT) 25 MG Tablet Take 1 Tab by mouth 3 times a day as needed for Dizziness. 30 Tab 1 02/20/2020 Active Ketoconazole 2 % External CreamIndications:Heriberto orrheic dermatitis Apply topically to affected area daily. Apply to face 60 g 5 11/23/2022 Active Atorvastatin Calcium 40 MG Oral Tablet (Lipitor) Take 1 Tablet by mouth in the morning. 90 Tablet 3 08/02/2023 Active Lisinopril 5 MG Oral Tablet (Prinivil) Take 1 Tablet by mouth in the morning. 30 Tablet 11 10/07/2023 Active Dicyclomine HCl 20 MG Oral Tablet (Bentyl)Indications: Gastroesophageal reflux disease without esophagitis TAKE ONE TABLET BY MOUTH FOUR TIMES A DAY NEEDED FOR ABDOMINAL PAIN 120 Tablet 11 11/29/2023 Active Hoqqqyvwom-ASSV-Zztx eine 50-325-40 MG Oral Tablet (Fioricet) Take 1 Tablet by mouth every 6 hours as needed (abd pain/neck pain). 90 Tablet 05/12/2024 Active Baclofen 10 MG Oral Tablet (Lioresal) 1 tablet three times a day as needed for neck pain 90 Tablet 1 05/19/2024 Active documented as of this encounter (statuses as of 06/01/2024) Active Problems Problem Noted Date Diagnosed Date [...] as of this encounter (statuses as of 06/01/2024) Resolved Problems Problem Noted Date Diagnosed Date Resolved Date FILIBERTO (generalized anxiety disorder) 01/18/2021 01/27/2021 Overview: Neurology started him on lexapro; it was felt that his vertiginous episodes were related to anxiety and NOT a TIA or the incidentally found vestibular artery stenosis Acute vestibular syndrome 02/20/2020 Chronic neck pain 02/20/2020 03/24/2022 documented as of this encounter (statuses as of 06/01/2024) Immunizations Name Administration Dates Next Due COVID-19 [...] 11/17/2023 Does the household have a re lar source of income? (Household - for ages [...] as of this encounter Miscellaneous Notes * Addendum Note - Rhea Leonard LPN - 06/01/2024 11:14 AM EDTAddended by: RHEA LEONARD on: 06/01/2024 11:14 AM Modules accepted: Orders * Telephone Encounter - Rhea Leonard LPN - 06/01/2024 11:13 AM EDT Spoke to patient. Will do lab work same day of appt. That is what he prefers anytime he does bloodwork * Telephone Encounter - Rhea Leonard LPN - 06/01/2024 8:17 AM EDT Care Gaps Comprehensive Care Outreach Last Office/Telemedicine Visit: 11/30/2023 (in office), Visit date not found (telemedicine) Next Office Visit: 07/29/2024 Hemoglobin AIC Results: No results found for: "HEMOGLOBIN A1C" BP Readings from Last 1 Encounters: 05/31/24 130/64 Reviewed Health Maintenance below: Health Maintenance Topic Date Due COVID-19 Vaccine ( season) 2024 GFR 05/26/2024 Influenza Vaccine (FLU shot) (1) 06/04/2024 Labs Prefers my not calls Care Gap Outreach Action Taken: Teevox message sent documented in this encounter Plan of Treatment Upcoming Encounters Date Type Department Care Team (Late st Contact Info) Description 07/29/2024 1:40 PM EDT Office Visit Family Practice [facility] [address] [place] [address] Frank Crowder MD [address] [place] [address] 06/01/2025 3:00 PM EDT Nurse Only Ancillary [facility] [address] [place] [address] [facility], Nurse Annual Wellness [facility] [address] [facility] [place] [address] Scheduled Orders Name Type Priority Associated Diagnoses Orde r Schedule COMPREHENSIVE METABOLIC PANEL Lab Routine Hypertension, unspecified type Expected: 07/28/2024, Expires: 06/01/2025 Health Maintenance Due Date Last Done Comments Cologuard 1994 Fecal Occult Blood Test 1994 Sigmoidoscopy 1994 COVID-19 Vaccine ( season) 2024 11/30/2023, 01/27/2022, 09/20/2021, Additional history exists GFR 05/26/2024 05/26/2023, 03/05, 10/01/2020, Additional history exists Influenza Vaccine (FLU shot) (#1) 2024 09/23/2023, 07/30/2022, 08/20/2021, Additional history exists Adult Wellness Visit 05/31/2025 05/31/2024, 05/26/20 23 Depression Screening 05/31/2025 05/31/2024 Colonoscopy 12/05/2025 12/06/2015, 01/2016, 12/05/2015 Colorectal Cancer Screening 12/05/2025 Albumin/Creatinine Ratio 06/01/2026 06/01/2023, 08/04 DTap/Tdap Vaccines [...] Not on filedocumented as of this encounter Visit Diagnoses Diagnosis Hypertension, unspecified type- Primary documented in this encounter Care Teams Pourer Crane Ladle Relationship Specialty Start Date End Date Frank Crowder MD [address] [facility] [place] [address] PCP - General Family Medicine 01/18/21 documented as of this encounter
--- OUTSIDE RECORDS SUMMARY | 2024-09-20 16:56 | External Medical Summary | Summary of Care ---
Author Name Unknown Organization [facility] Address [address] [place] [address] Phone [phone] Care Team Providers Care Abattoir Manager Name Role Phone Lora Wong MD Primary Care Provider [phone] Reason for Visit * Reason Onset Date Comments Medication Refill 07/19/2024 Encounter Details Date Type Department Care Team (Late st Contact Info) Description 07/19/2024 Refill [facility] [address] [facility] [address] [facility] [address] [facility] [address] Allergies Active Allergy Reactions Criticality Noted Date Comments Shrimp Flavor 09/16/2015 shrimp seafood documented as of this encounter (statuses as of 07/20/2024) Medications Medication Sig Dispensed Refills Start Date [...] ABDOMINAL PAIN 120 Tablet 11 11/29/2023 Active Baclofen 10 MG Oral Tablet (Lioresal) 1 tablet three times a day as needed for neck pain 90 Tablet 1 07/17/2024 Active Vevrdiwaxh-TXBX-M affeine 50-325-40 MG Oral Tablet (Fioricet) Take 1 Tablet by mouth every 6 hours as needed (abd pain/neck pain). 90 Tablet 07/20/2024 Active Qcbzjktjjo-MWZP-O affeine 50-325-40 MG Oral Tablet (Fioricet) Take 1 Tablet by mouth every 6 hours as needed (abd pain/neck pain). 90 Tablet 06/27/2024 07/19/2024 Discontinue d(Refill) documented as of this encounter (statuses as of 07/20/2024) Active Problems Problem Noted Date Diagnosed Date [...] as of this encounter (statuses as of 07/20/2024) Resolved Problems Problem Noted Date Diagnosed Date Resolved Date FILIBERTO (generalized anxiety disorder) 01/18/2021 01/27/2021 Overview: Neurology started him on lexapro; it was felt that his vertiginous episodes were related to anxiety and NOT a TIA or the incidentally found vestibular artery stenosis Acute vestibular syndrome 02/20/2020 Chronic neck pain 02/20/2020 03/24/2022 documented as of this encounter (statuses as of 07/20/2024) Immunizations Name Administration Dates Next Due COVID-19 [...] Telephone Encounter - Lora Wong MD - 07/20/2024 1:24 PM EDTSigned Prescriptions: Disp Refills Pumetlprba-XFQZ-Kcuwzzzl 50-325-40 MG Oral*90 Tab*0 Sig: Take 1 Tablet by mouth every 6 hours as needed (abd pain/neck pain). Authorizing Provider: LORA WONG * Telephone Encounter - Abran [facility] - 07/20/2024 11:53 AM EDTPending Prescriptions: Disp Refills Bjbpjkzdzz-JPFS-Dnvacbqm 50-325-40 MG Oral*90 Tab*0 Sig: Take 1 Tablet by mouth every 6 hours as needed (abd pain/neck pain). * Telephone Encounter - Abran Jacob [facility] - 07/20/2024 11:53 AM EDT I have reviewed the patients controlled substance dispensing history in the Prescription Drug Monitoring Program in compliance with the [facility] regulations before prescribing a controlled substance. PDMP checked on 07/20/2024. Pending Prescriptions: Disp Refills Anfmajscth-XBPT-Oairaenq 50-325-40 MG Ora*90 Tab*0 Sig: Take 1 Tablet by mouth every 6 hours as needed (abd pain/neck pain). Last Visit: 11/30/2023 (in office), Visit date not found (telemedicine) Next Visit: 07/24/2024 Date medication was last filled: 06-27-24 Date medication is due for refill: 07-19-24 Pharmacy: [facility] [address] [place] [address] Is this request for a controlled substance? Yes and Urine Drug Screen Not completed Toxicology results: No results found for this or any previous visit. Please approve if appropriate. Valerie Barker.Ph. Clinical Pharmacist [facility] ([facility]) [address] [place] [address], [address] [place] [address] : [phone] 07/20/2024,11:53 AM documented in this encounter Plan of Treatment Upcoming Encounters Date Type Department Care Team (Late st Contact Info) Description 07/24/2024 2:40 PM EDT Office Visit [facility] [place] [address] Lora Wong MD [address] [place] [address] 06/20/2025 2:30 PM EDT Nurse Only Ancillary [facility] [place] [address] [facility], Nurse Annual Wellness [facility] [address] [facility] [place] [address] Health Maintenance Due Date Last Done Comments Cologuard 1994 Fecal Occult Blood Test 1994 Sigmoidoscopy 1994 GFR 05/26/2024 05/26/2023, 03/05, 10/01/2020, Additional history exists COVID-19 Vaccine ( season) 2024 11/30/2023, 01/27/2022, [...] filedocumented as of this encounter Care Teams Abattoir Manager Relationship Specialty Start Date End Date Lora Wong MD [address] [address] PCP - General Family Medicine 01/18/21 documented as of this encounter
--- OUTSIDE RECORDS SUMMARY | 2024-09-20 16:56 | External Medical Summary ---
Author Name Unknown Address Unknown Organization [facility] [address] [place] [address] Laboratory Report Ordering Provider Test Date Status JUDITH PAULINO 07/24/2024 15:38:24 Final Observation Date Value Abnormality Reference (Units ) Status BUN 07/24/2024 15:38:24 7 6-20 (mg/dL) Final Creatinine 07/24/2024 15:38:24 0.9 0.6-1.2 (mg/dL) Final Glomerular filtration rate/1.73 sq M.predicted [Volume Rate/Area] in Serum, Plasma or Blood by Creatinine-based formula (CKD-EPI) 07/24/2024 15:38:24 >90 >=60 (mL/min) Final eGFR is calculated based on the CKD-EPI 2020 equation. Sodium 07/24/2024 15:38:24 142 135-146 (m mol/L) Final Potassium 07/24/2024 15:38:24 3.9 3.5-5.1 (m mol/L) Final Cl 07/24/2024 15:38:24 105 98-107 (mm ol/L) Final CO2 07/24/2024 15:38:24 24 22-32 (mmo l/L) Final Anion gap 07/24/2024 15:38:24 13 7-15 (mmol /L) Final Glucose 07/24/2024 15:38:24 97 70-120 (mg /dL) Final Albumin 07/24/2024 15:38:24 4.5 3.8-5.0 (g /dL) Final AST (Aspartate aminotransferase) 07/24/2024 15:38:24 23 10-50 (U/L) Final Alk Phos 07/24/2024 15:38:24 110 35-130 (U/ L) Final Bilirubin, Total 07/24/2024 15:38:24 0.4 <=1 .2 (mg/dL) Final Calcium 07/24/2024 15:38:24 9.2 8.4-10.2 ( mg/dL) Final Protein 07/24/2024 15:38:24 6.9 6.0-8.3 (g /dL) Final ALT (Alanine aminotransferase) 07/24/2024 15:38:24 15 10-50 (U/L) Final Performing Location [facility] [place] [address] [facility] [address]
--- OUTSIDE RECORDS SUMMARY | 2024-09-20 16:56 | External Medical Summary | Summary of Care ---
Author Name Unknown Organization [facility] Address [address] [place] [address] Phone [phone] Care Team Providers Care Vice President Of Customer Service Name Role Phone Lora Wong MD Primary Care Provider [phone] Reason for Visit * Reason Onset Date Comments Medication Refill 06/01/2024 Encounter Details Date Type Department Care Team (Late st Contact Info) Description 06/01/2024 Refill Family Practice [facility] [address] [facility] [place] [address] Lora Wong MD [address] [facility] [place] [address] Allergies Active Allergy Reactions Criticality Noted Date Comments Shrimp Flavor 09/16/2015 shrimp seafood documented as of this encounter (statuses as of 06/02/2024) Medications Medication Sig Dispensed Refills Start Date [...] neck pain 90 Tablet 1 05/19/2024 Active Mgpqqfwnpj-BDHM-F affeine 50-325-40 MG Oral Tablet (Fioricet) Take 1 Tablet by mouth every 6 hours as needed (abd pain/neck pain). 90 Tablet 06/02/2024 Active Onnktxwxhc-GWMW-S affeine 50-325-40 MG Oral Tablet (Fioricet) Take 1 Tablet by mouth every 6 hours as needed (abd pain/neck pain). 90 Tablet 05/12/2024 06/01/2024 Discontinue d(Refill) documented as of this encounter (statuses as of 06/02/2024) Active Problems Problem Noted Date Diagnosed Date [...] as of this encounter (statuses as of 06/02/2024) Resolved Problems Problem Noted Date Diagnosed Date Resolved Date FILIBERTO (generalized anxiety disorder) 01/18/2021 01/27/2021 Overview: Neurology started him on lexapro; it was felt that his vertiginous episodes were related to anxiety and NOT a TIA or the incidentally found vestibular artery stenosis Acute vestibular syndrome 02/20/2020 Chronic neck pain 02/20/2020 03/24/2022 documented as of this encounter (statuses as of 06/02/2024) Immunizations Name Administration Dates Next Due COVID-19 [...] 8:12 PM EDT Sexual Orientation Nur 01/16/2022 8 :12 PM EDT Job Start Date Occupation Industry Not on file Not on file Not on file documented as of this encounter Miscellaneous Notes * Telephone Encounter - Lora Wong MD - 06/02/2024 11:25 AM EDTSigned Prescriptions: Disp Refills Pzavsjkcaj-LIRC-Niuluhyo 50-325-40 MG Oral*90 Tab*0 Sig: Take 1 Tablet by mouth every 6 hours as needed (abd pain/neck pain). Authorizing Provider: LORA WONG * Telephone Encounter - Neo Waller, [facility] - 06/02/2024 11:17 AM EDT Pending Prescriptions: Disp Refills Xolocjckpk-OTMQ-Hhovuixu 50-325-40 MG Oral*90 Tab*0 Sig: Take 1 Tablet by mouth every 6 hours as needed (abd pain/neck pain). * Telephone Encounter - Neo Waller [facility] - 06/02/2024 11:15 AM EDT I have reviewed the patients controlled substance dispensing history in the Prescription Drug Monitoring Program in compliance with the [facility] regulations before prescribing a controlled substance. PDMP checked on 06/02/2024. Pending Prescriptions: Disp Refills Epwstuvrot-MKZX-Iwjmrwar 50-325-40 MG Ora*90 Tab*0 Sig: Take 1 Tablet by mouth every 6 hours as needed (abd pain/neck pain). Last Visit: 11/30/2023 (in office), Visit date not found (telemedicine) Next Visit: 07/29/2024 Date medication was last filled: 05/12/2024 Date medication is due for refill: 06/02/2024 Pharmacy: [facility] [id number] Is this request for a controlled substance? Yes and Urine Drug Screen Not completed Toxicology results: No results found for this or any previous visit. Please approve if appropriate. Thank You, Neo Waller, Pharm-D Clinical Pharmacist [facility] ([facility]) [phone] 06/02/2024, 11:15 AM documented in this encounter Plan of Treatment Upcoming Encounters Date Type Department Care Team (Late st Contact Info) Description 07/29/2024 1:40 PM EDT Office Visit Family Practice [facility] [address] [place] [address] Lora Wong MD [address] [place] [address] 06/01/2025 3:00 PM EDT Nurse Only Ancillary [facility] [place] [address] [facility], Nurse Annual Wellness [facility] [place] [address] Health Maintenance Due Date Last Done Comments [...] filedocumented as of this encounter Care Teams Vice President Of Customer Service Relationship Specialty Start Date End Date Lora Wong MD [address] [facility] [place] [address] PCP - General Family Medicine 01/18/21 documented as of this encounter
--- OUTSIDE RECORDS SUMMARY | 2024-09-20 16:56 | External Medical Summary | Summary of Care ---
Author Name Unknown Organization [facility] Address [address] [place] [address] Phone [phone] Care Team Providers Care Pet Stylist Name Role Phone Frank Crowder MD Primary Care Provider [phone] Reason for Visit * Reason Comments Re-Check Runny nose and bowel habit change. Refill. Encounter Details Date Type Department Care Team (Late st Contact Info) Description 07/24/2024 2:40 PM EDT Office Visit Family Practice [facility] [address] [place] [address] Frank Crowder MD [address] [place] [address] HTN, goal below 130/80*; Dyslipidemia; Irritable bowel syndrome with diarrhea; Gastroesophageal reflux disease without esophagitis; DDD (degenerative disc disease), cervical; Migraine with aura and without status migrainosus, not intractable; History of partial colectomy; Overweight (BMI 25.0-29.9) Allergies Active Allergy Reactions Criticality Noted Date Comments Shrimp Flavor 09/16/2015 shrimp seafood documented as of this encounter (statuses as of 07/24/2024) Medications Medication Sig Dispensed Refills Start Date End Date Status meclizine (ANTIVERT) 25 MG Tablet Take 1 Tab by mouth 3 times a day as needed for Dizziness. 30 Tab 1 02/20/2020 Active Ketoconazole 2 % External CreamIndications: Seborrheic dermatitis Apply topically to affected area daily. Apply to face 60 g 5 11/23/2022 Active Lisinopril 5 MG Oral Tablet (Prinivil) [...] neck pain 90 Tablet 1 07/17/2024 Active Zbwphjshtr-PMGV-C affeine 50-325-40 MG Oral Tablet (Fioricet) Take 1 Tablet by mouth every 6 hours as needed (abd pain/neck pain). 90 Tablet 07/20/2024 Active Atorvastatin Calcium 40 MG Oral Tablet (Lipitor) Take 1 Tablet by mouth in the morning. 90 Tablet 3 07/24/2024 Active Atorvastatin Calcium 40 MG Oral Tablet (Lipitor) Take 1 Tablet by mouth in the morning. 90 Tablet 3 08/02/2023 07/24/2024 Discontinue d(Refill) documented as of this encounter (statuses as of 07/24/2024) Active Problems Problem Noted Date Diagnosed Date [...] as of this encounter (statuses as of 07/24/2024) Resolved Problems Problem Noted Date Diagnosed Date Resolved Date FILIBERTO (generalized anxiety disorder) 01/18/2021 01/27/2021 Overview: Neurology started him on lexapro; it was felt that his vertiginous episodes were related to anxiety and NOT a TIA or the incidentally found vestibular artery stenosis Acute vestibular syndrome 02/20/2020 Chronic neck pain 02/20/2020 03/24/2022 documented as of this encounter (statuses as of 07/24/2024) Immunizations Name Administration Dates Next Due COVID-19 [...] on file documented as of this encounter Last Filed Vital Signs Vital Sign Reading Time Taken Comments Blood Pressure 130/72 07/24/2024 2:54 PM EDT Pulse 98 07/24/2024 2:54 PM EDT Temperature - - Respiratory Rate - - Oxygen Saturation - - Inhaled Oxygen Concentration - - Weight 84.5 kg (186 lb 6 oz) 07/24/2024 2:54 PM EDT Height - - Body Mass Index 29.19 05/31/2024 1:54 PM EDT documented in this encounter Progress Notes * Frank Crowder MD - 07/24/2024 3:36 PM EDT SUBJECTIVE: Dandre Mott is a 73 year old male. Chief Complaint Patient presents with Re-Check Runny nose and bowel habit change. Refill. HPI: Routine follow up. Continues to do well overall. We reviewed his medications and health history. Bowels are stable. He is due for a CMP today which he will have done on the way out. He is going to get his flu vaccine at the pharmacy closer to his house as he didn't fell well after his last vaccinesfor RSV and Covid. Patient Active Problem List Diagnosis Migraine without status migrainosus, not intractable Gastroesophageal reflux disease without esophagitis HTN, goal below 130/80 History of partial colectomy Stenosis of left vertebral artery Dyslipidemia Irritable bowel syndrome with diarrhea DDD (degenerative disc disease), cervical First degree AV block Overweight (BMI 25.0-29.9) Current Outpatient Medications Medication Sig Dispense Refill meclizine (ANTIVERT) 25 MG Tablet Take 1 Tab by mouth 3 times a day as needed for Dizziness. 30 Tab1 Ketoconazole 2 % External Cream Apply topically to affected area daily. Apply to face 60 g 5 Lisinopril 5 MG Oral Tablet (Prinivil) Take 1 Tablet by mouth in the morning. 30 Tablet 11 Dicyclomine HCl 20 MG Oral Tablet (Bentyl) TAKE ONE TABLET BY MOUTH FOUR TIMES A DAY NEEDED FOR ABDOMINAL PAIN 120 Tablet 11 Baclofen 10 MG Oral Tablet (Lioresal) 1 tablet three times a day as needed for neck pain 90 Tablet 1 Mkydgsixno-THGB-Vcomnror 50-325-40 MG Oral Tablet (Fioricet) Take 1 Tablet by mouth every 6 hours as needed (abd pain/neck pain). 90 Tablet 0 Atorvastatin Calcium 40 MG Oral Tablet (Lipitor) Take 1 Tablet by mouth in the morning. 90 Tablet 3 No current facility-administered medications for this visit. Allergy: Review of patient's allergies indicates: Allergen Reactions Shrimp Flavor shrimp seafood OBJECTIVE: BP 130/72 | Pulse 98 | Wt 84.5 kg (186 lb 6 oz) | BMI 29.19 kg/m | BSA 2 m General: alert, healthy, and no distress Head: Normocephalic, No masses, lesions, tenderness or abnormalities Neck: supple, no adenopathy, no bruits, thyroid normal size, non-tender, without nodularity Lungs: chest symmetric with normal AP diameter, no chest deformities noted, no chest wall tenderness, lungs clear to auscultation Heart: regular rate & rhythm, no murmur, and no gallops Abdomen: abdomen soft, non-tender, normal bowel sounds, and no masses or organomegaly Extremities: less than 2 second capillary refill, no joint deformities, effusion, or inflammation Neuro Exam: alert & oriented x 3 with fluent speech, no focal motor/sensory deficits, gait normal, reflexes normal and symmetric Skin: skin color, texture, turgor are normal, no rashes or significant lesions ASSESSMENT AND PLAN: (I10) HTN, goal below 130/80 (primary encounter diagnosis) Plan: at goal (E78.5) Dyslipidemia Plan: stable (K58.0) Irritable bowel syndrome with diarrhea Plan: stable (K21.9) Gastroesophageal reflux disease without esophagitis Plan: stable (M50.30) DDD (degenerative disc disease), cervical Plan: quiescent (G43.109) Migraine with aura and without status migrainosus, not intractable Plan: stable (Z90.49) History of partial colectomy Plan: noted (E66.3) Overweight (BMI 25.0-29.9) Plan: stable Follow up in 6 month(s). No other complaints were offered at this time. Frank Crowder MD documented in this encounter Plan of Treatment Upcoming Encounters Date Type Department Care Team (Late st Contact Info) Description 06/20/2025 2:30 PM EDT Nurse Only Ancillary [facility] [place] [address] [facility] [place] [address] Zac Nurse Annual Wellness [facility] [address] [facility] [place] [address] Health Maintenance Due Date Last Done Comments [...] as of this encounter Visit Diagnoses Diagnosis HTN, goal below 130/80- Primary Unspecified essential hypertension Dyslipidemia Other and unspecified hyperlipidemia Irritable bowel syndrome with diarrhea Irritable bowel syndrome Gastroesophageal reflux disease without esophagitis Esophageal reflux DDD (degenerative disc disease), cervical Degeneration of cervical intervertebral disc Migraine with aura and without status migrainosus, not intractable Migraine with aura, without mention of intractable migraine without mention of status migrainosus History of partial colectomy Overweight (BMI 25.0-29.9) Overweight documented in this encounter Care Teams Pet Stylist Relationship Specialty Start Date End Date Lakesha, Frank Santos, MD [address] [place] [address] PCP - General Family Medicine 01/18/21 documented as of this encounter"
--- OUTSIDE RECORDS SUMMARY | 2024-09-20 16:56 | External Medical Summary | Summary of Care ---
Author Name Unknown Organization [facility] Address [address] [place] [address] Phone [phone] Care Team Providers Care Event Marketing Assistant Name Role Phone Frank Crowder MD Primary Care Provider [phone] Reason for Visit * Reason Onset Date Comments Adult Annual Wellness Visit, Subsequent Visit Encounter Details Date Type Department Care Team (Late st Contact Info) Description 05/31/2024 2:00 PM EDT Nurse Only Ancillary [facility] [address] [place] [address] [facility], Nurse Annual Wellness [facility] [address] [place] [address] Adult Annual Wellness Visit, Subsequent Visit Allergies Active Allergy Reactions Criticality Noted Date Comments Shrimp Flavor 09/16/2015 shrimp seafood documented as of this encounter (statuses as of 05/31/2024) Medications Medication Sig Dispensed Refills Start Date [...] ABDOMINAL PAIN 120 Tablet 11 11/29/2023 Active Sayfxnimqk-TISW-Fafg eine 50-325-40 MG Oral Tablet (Fioricet) Take 1 Tablet by mouth every 6 hours as needed (abd pain/neck pain). 90 Tablet 05/12/2024 Active Baclofen 10 MG Oral Tablet (Lioresal) 1 tablet three times a day as needed for neck pain 90 Tablet 1 05/19/2024 Active documented as of this encounter (statuses as of 05/31/2024) Active Problems Problem Noted Date Diagnosed Date [...] as of this encounter (statuses as of 05/31/2024) Resolved Problems Problem Noted Date Diagnosed Date Resolved Date FILIBERTO (generalized anxiety disorder) 01/18/2021 01/27/2021 Overview: Neurology started him on lexapro; it was felt that his vertiginous episodes were related to anxiety and NOT a TIA or the incidentally found vestibular artery stenosis Acute vestibular syndrome 02/20/2020 Chronic neck pain 02/20/2020 03/24/2022 documented as of this encounter (statuses as of 05/31/2024) Immunizations Name Administration Dates Next Due COVID-19 [...] No 11/17/2023 Does the household have a [facility] source of income? (Household - for ages [...] Sign Reading Time Taken Comments Blood Pressure 130/64 05/31/2024 1:54 PM EDT Pulse 76 05/31/2024 1:54 PM EDT Temperature 37.1 C (98.8 F) 05/31/2024 1:54 PM ED T Respiratory Rate - - Oxygen Saturation - - Inhaled Oxygen Concentration - - Weight 87.5 kg (193 lb) 05/31/2024 1:54 PM EDT Height 170.2 cm (5' 7") 05/31/2024 1:54 PM EDT Body Mass Index 30.23 05/31/2024 1:54 PM EDT documented in this encounter Patient Instructions * Patient Instructions* Maggie Glover RN - 05/31/2024 1:50 PM EDT Hi Mr. Mott, As your primary care physician, I know that regular visits with my patients who have several chronic conditions can go a long way in helping you stay healthy. Many times, the clinic team and I are in touch with you and/or other care team members between office visits to adjust medications, discuss any changes in your health, and review our care plan to make sure it is still meeting your needs. I am dedicated to helping you take a more active role in your overall care. It is important that there are resources available to you, so I created a personalized plan of care with a Health Calendar for you, which is included on the next page of this letter. Below is a list that summarizes your electronic health record: Health Maintenance Due: Health Maintenance Due Topic Date Due COVID-19 Vaccine ( season) 2024 GFR 05/26/2024 Depression Screening 05/26/2024 Adult Wellness Visit 05/26/2024 Current Medication List: (as of Visit date not found (in office), Visit date not found (telemedicine) ) Current Outpatient Medications Medication Sig Dispense Refill meclizine (ANTIVERT) 25 MG Tablet Take 1 Tab by mouth 3 times a day as needed for Dizziness. 30Tab 1 Ketoconazole 2 % External Cream Apply topically to affected area daily. Apply to face 60 g 5 Atorvastatin Calcium 40 MG Oral Tablet (Lipitor) Take 1 Tablet by mouth in the morning. 90 Tablet 3 Lisinopril 5 MG Oral Tablet (Prinivil) Take 1 Tablet by mouth in the morning. 30 Tablet 11 Dicyclomine HCl 20 MG Oral Tablet (Bentyl) TAKE ONE TABLET BY MOUTH FOUR TIMES A DAY NEEDED FOR ABDOMINAL PAIN 120 Tablet 11 COVID-19 mRNA Vaccine 12 years and above [email or web address] 30 MCG/0.3 ML IM SUSP Inject into a large muscle. 0.3 mL 0 Kxsnxswxpo-JNAC-Ubdzgpmy 50-325-40 MG Oral Tablet (Fioricet) Take 1 Tablet by mouth every 6 hours as needed (abd pain/neck pain). 90 Tablet 0 Baclofen 10 MG Oral Tablet (Lioresal) 1 tablet three times a day as needed for neck pain 90 Tablet 1 No current facility-administered medications for this visit. Current List of Allergies: (as of Visit date not found (in office), Visit date not found (telemedicine) ) Review of patient's allergies indicates: Allergen Reactions Shrimp Flavor shrimp seafood Most Recent Lab Results: Results for orders placed or performed in visit on 06/01/23 ALBUMIN / CREATININE RATIO, URINE Result Value Ref Range Albumin, Random Urine <1.20 mg/dL Creatinine, Random Urine 49 mg/dL Albumin / Creatinine Ratio, Urine <24 <30 mg/g Creat Sincerely, Frank Crowder MD 05/31/2024 [facility] Calendar (as of Visit date not found (in office), Visit date not found (telemedicine) ) Care needs Care needs Last completed Due next COVID-19 Vaccine ( season) 2023 03/30/2024 Kidney Function Test 05/26/2023 05/26/2024 Adult Wellness Visit 05/26/2023 05/26/2024 Flu vaccine (recommended) (1) 09/23/2023 06/04/2024 Colorectal cancer screening (colonoscopy 10 years, sigmoidoscopy 5 years, Cologuard 3 years, stool sample 1 year) 12/06/2015 12/05/2025 Urine albumin/creatinine test 06/01/2023 06/01/2026 Diphtheria, tetanus & pertussis vaccines (2 - Td or Tdap) 02/14/2019 02/14/2029 As you look over the recommended services, be sure to check with your insurance company to determine what's covered. [employer] is a great tool that helps you review your medical record online, including test results, doctor notes and your health summary. You can also schedule appointments with me and other members of your care team, request prescription refills and ask for advice related to your medical conditions at [email or web address]. Patient Instructions - Fall Prevention (This education is for all patients over 65 regardless of symptoms) Remember to take your current medications as prescribed. In order to prevent falls, you are encouraged to: Exercise Utilize assistive/adaptive devices Avoid multifocal lenses when walking Avoid hazards in home Maintain a regular toileting schedule Any questions please contact our office. Preventing Falls in the Home (This education is for all patients over 65 regardless of symptoms) As you get older, falls are more likely. Thats because your reaction time slows. Your muscles and joints may also get stiffer, making them less flexible. Illness, medications, and vision changes can also affect your balance. A fall could leave you unable to live on your own. To make your home safer, follow these tips: Floors Put nonskid pads under area rugs Remove throw rugs Replace worn floor coverings Tack carpets firmly to each step on carpeted stairs. Put nonskid strips on the edges of uncarpeted stairs Keep floors and stairs free of clutter and cords Arrange furniture so there are clear pathways Clean up any spills right away Bathrooms Install grab bars in the tub or shower Apply nonskid strips or put a nonskid rubber mat in the tub or shower Sit on a bath chair to bathe Use bathmats with nonskid backing Lighting Keep a flashlight in each room Put a nightlight along the pathway between the bedroom and the bathroom [employer] Patient Education Copyright 2008 - 2010 [employer] except where otherwise noted documented in this encounter Progress Notes * Maggie Glover RN - 05/31/2024 1:50 PM EDT Adult Annual Wellness Visit: Dandre Mott is a 73 year old male who presents for an Adult Annual Wellness Visit. Depression Screening: Did the patient complete the screening questionnaire for Depression? Yes Is the patient's total score for Depression 15 or greater? No, no further intervention needed, unless requested by patient. Did the patient answer positively to the suicide question? No, no further intervention needed, unless requested by patient. In general, compared to other people your age, what would you say that your health is? Good Ht Readings from Last 1 Encounters: 05/31/24 1.702 m (5' 7") Wt Readings from Last 1 Encounters: 05/31/24 87.5 kg (193 lb) Body Mass Index: BMI Greater than 30 Body mass index is 30.23 kg/m. BP Readings from Last 1 Encounters: 05/31/24 130/64 Medical/Surgical/Family History Reviewed: Yes Past Medical History: Diagnosis Date Acute vestibular syndrome 02/20/2020 Chronic neck pain 02/20/2020 DDD (degenerative disc disease), cervical 03/24/2022 Dyslipidemia 05/21/2020 First degree AV block 11/04/2022 FILIBERTO (generalized anxiety disorder) 01/18/2021 Neurology started him on lexapro; it was felt that his vertiginous episodes were related to anxietyand NOT a TIA or the incidentally found vestibular artery stenosis HTN, goal below 130/80 03/25/2017 Irritable bowel syndrome with diarrhea 01/27/2021 Migraine Migraines,unspecified Overweight (BMI 25.0-29.9) 11/04/2022 S/P partial colectomy 03/04/2018 After diverticular abscess and rupture Stenosis of left vertebral artery 02/20/2020 Past Surgical History: Procedure Laterality Date CATARACT SURGERY,COMPLEX both eyes COLONOSCOPY, DIAGNOSTIC (RECTUM) 12/05/2015 COLONOSCOPY FLEXIBLE PROXIMAL DIAGNOSTIC performed by Tami Roberts MD at [facility]COPY [facility] COLONOSCOPY, DIAGNOSTIC (RECTUM) 12/06/2015 normal, repeat 10 yrs/COLONOSCOPY FLEXIBLE PROXIMAL DIAGNOSTIC performed by Timoteo Segura MD at [facility]COPY [facility] DENTAL SURGERY PROCEDURE NEC dental extractions EGD, FLEXIBLE, DIAGNOSTIC 12/05/2015 ESOPHAGOGASTRODUODENOSCOPY (EGD), FLEXIBLE, TRANSORAL, DIAGNOSTIC performed by Tami Roberts MD at [facility]COPY [facility] EGD, FLEXIBLE, DIAGNOSTIC 12/06/2015 retained food, gastritis, duodenal stensosis, DU, repeat 1 wk/ESOPHAGOGASTRODUODENOSCOPY (EGD), FLEXIBLE, TRANSORAL, DIAGNOSTIC performed by Timoteo Segura MD at [facility]COPY [facility] EGD, FLEXIBLE, DIAGNOSTIC 12/13/2015 inflammatory changes on bx/ESOPHAGOGASTRODUODENOSCOPY (EGD), FLEXIBLE, TRANSORAL, DIAGNOSTIC performed by Timoteo Segura MD at [facility]COPY [facility] EGD, W/ENDOSCOPIC US 12/24/2015 GB sludge/ESOPHAGOGASTRODUODENOSCOPY (EGD), FLEXIBLE, TRANSORAL, ENDOSCOPIC ULTRASOUND performed byRicardo Garcia DO at ENDOSCOPY [facility] EGD, W/ENDOSCOPIC US 01/22/2016 duodenal stenosis/ESOPHAGOGASTRODUODENOSCOPY (EGD), FLEXIBLE, TRANSORAL, ENDOSCOPIC ULTRASOUND performed by Ricardo Garcia DO at [facility]OSCOPY [facility] EXPLORATION OF MAXILLARY SINUS 2000 Sinus Surgery and devaited septum repair INFORMATION 01/14/2018 reversal of colostomy REMOVAL OF COLON/ILEOSTOMY 10/25/2017 Family History Problem Relation Name Age of Onset Lung Disorder Mother COPD Cancer Mother Lung Disorder Father COPD Heart Disorder Father CO at age 39 No Known Problems Brother Has patient ever had cancer? No Social History Tobacco Use Smoking status: Never Smokeless tobacco: Never Tobacco comments: smoked briefly as teenager Substance Use Topics Alcohol use: Yes Comment: rarely-gin Vaping/E-Cigarette Use Vaping/E-Cigarette Use Never User Vaping/E-Cigarette Substances Vaping/E-Cigarette Devices Tobacco/Alcohol screening completed today? Yes Hospital Care: Admissions (within the last year): Not Applicable ER within 30 days: No Does the patient have an Advance Directives/Living Will? Yes Last Physical Exam: Last physical exam: 11/2023 Does patient see primary provider regularly? Yes Does patient see other providers? Yes, Specialist Patient Care Team updated? Yes Review of patient's allergies indicates: Allergen Reactions Shrimp Flavor shrimp seafood Immunization History Administered Date(s) Administered COVID-19 mRNA, LNP-s, No Preserve, 2-Dose Series (Moderna) 12/19/2020, 01/16/2021, 09/20/2021, 01/27/2022 COVID-19, MRNA-LNP, 23-24, PF, 30 MCG/0.3 mL, 12 YRS AND ABOVE, IM (PFIZER- Comirnaty) 11/30/2023 Pneumococcal Conjugate Vacc, 13 Valent (Prevnar) 04/03/2016 Pneumococcal Polysaccharide PPV23 (Pneumovax) 04/15/2017 RSV Vac., Bivalent, Perfusion F, Pf,0.5 Ml (Abrysvo) 11/30/2023 Season Influenza, Quad, PF, Adjuvanted, 65+ Yrs, IM (FLUAD) 06/19/2020, 07/30/2022 Seasonal Influenza Virus Vaccine, Unspecified Formulation 07/16/2016, 06/25/2017, 07/23/2018, 06/03/2019, 06/19/2020, 08/20/2021 Seasonal Influenza, Quadrivalent Hd (Fluzone Hd) 08/20/2021, 09/23/2023 Seasonal Influenza, Quadrivalent, No Preserve, IM 07/16/2016, 07/23/2018 Seasonal Influenza, Trivalent, Adjuvanted, 65+ yrs 07/20/2018, 06/03/2019 TDAP (age 10 and older)(Boostrix) 02/14/2019 Varicella Zoster Vaccine (Adult) 04/15/2017, 09/08/2018 Zoster Vaccine Recombinant (Shingrix) 09/08/2018, 12/19/2018 Current Outpatient Medications Medication Sig Dispense Refill meclizine (ANTIVERT) 25 MG Tablet Take 1 Tab by mouth 3 times a day as needed for Dizziness. 30 Tab1 Atorvastatin Calcium 40 MG Oral Tablet (Lipitor) Take 1 Tablet by mouth in the morning. 90 Tablet 3 Lisinopril 5 MG Oral Tablet (Prinivil) Take 1 Tablet by mouth in the morning. 30 Tablet 11 Dicyclomine HCl 20 MG Oral Tablet (Bentyl) TAKE ONE TABLET BY MOUTH FOUR TIMES A DAY NEEDED FOR ABDOMINAL PAIN 120 Tablet 11 Qxurotjbob-AGSN-Ncykpvqx 50-325-40 MG Oral Tablet (Fioricet) Take 1 Tablet by mouth every 6 hours as needed (abd pain/neck pain). 90 Tablet 0 Baclofen 10 MG Oral Tablet (Lioresal) 1 tablet three times a day as needed for neck pain 90 Tablet 1 Ketoconazole 2 % External Cream Apply topically to affected area daily. Apply to face 60 g 5 No current facility-administered medications for this visit. Patient Active Problem List Diagnosis Migraine without status migrainosus, not intractable Gastroesophageal reflux disease without esophagitis HTN, goal below 130/80 History of partial colectomy Stenosis of left vertebral artery Dyslipidemia Irritable bowel syndrome with diarrhea DDD (degenerative disc disease), cervical First degree AV block Overweight (BMI 25.0-29.9) Medication Compliance: Patient is able to obtain all of his medications? Yes Patient takes medications as prescribed? Yes Patient manages own medications: Yes Patient uses a pill box? No Dental Exam: Not Applicable Eye Screening: Yes: Every year Are you having trouble with hearing? No Do you use an assistive device to help your hearing? Yes Exercise Screening: does not exercise regularly Nutrition Assessment: Eats a balanced diet and Eats three meals a day Pain Screening: Are you having any pain? No Sleep Screening Tool 'STOP': Do you snore? No Do you feel fatigued during the day? No Do you wake up feeling like you haven't slept? No Have you been told you stop breathing at night? No Do you gasp for air or choke while sleeping? No Have you been told you have Sleep Apnea? No Do you have high blood pressure or are on medication(s) to control high blood pressure? Yes SCORE: If you check YES to two or more questions, make a referral for Obstructive Sleep Apnea Patient and Caregiver Support System: Patient lives alone Means of Transportation: Drives. Not a concern. Patient lives in One Story - with basement stairs: 8 with a railing Community Resources: Not Applicable Functional Status and ADL Skills: Has patient ever had an amputation? No Functional Assessment: 90- Able to carry on normal activity, minor symptoms of disease Ambulation: Patient ambulates with assistive device. Cane Dressing: Gets clothes and dresses without any assistance: Independent Able to move freely in chair or bed including turning over: Independent Repositioning (bed or chair): Not applicable Transfers: Independent Toileting: Goes to bathroom, uses toilet, arranges clothes and returns without any assistance: Independent Toileting: continent of bladder and continent of bowel Feeding: Self Bathing: Self; walk in shower with a seat Requires none assistance with ADLs. Instrumental ADL's: Shopping: Independent Housekeeping: Independent Handling Finances: Independent DME Vendor Name: Not Applicable Fall Risk Assessment: Can the patient demonstrate that he can stand from a sitting position? Yes Has the patient had a fall within the last 6 months? No Does the patient have a problem with his gait or balance? Yes Does the patient take 4 or more prescription medicines? Yes Does the patient use sedatives or narcotics? No Fall Risk Factors Present: Uses more than 4 medications Uses assistive devices Balance or gait disturbances Older than age 70 Lfj-Bf-llb-Go Test: Time began at 1400. Patient stood from sitting position and walked approximately 10 feet, returned and sat down. Total time for inl-bc-jic-go test was 10 seconds. Hux-Jq-dxb-Go Test completed? Yes Gender Specific Preventative Plan: Health Maintenance Topic Date Due COVID-19 Vaccine (2022- season) 2024 GFR 05/26/2024 Influenza Vaccine (FLU shot) (1) 06/04/2024 Depression Screening 05/31/2025 Adult Wellness Visit 05/31/2025 Colorectal Cancer Screening 12/05/2025 Albumin/Creatinine Ratio 06/01/2026 DTap/Tdap Vaccines (2 - Td or Tdap) 02/14/2029 Zoster Vaccines Completed Pneumococcal Vaccine: 65+ Years Completed Hepatitis B Vaccine Aged Out MENINGOCOCCAL (MENACTRA/MENVEO) Aged Out HPV (Gardasil) Vaccine Aged Out Follow Up/ Referrals/Handouts: No further action needed Routine general medical examination at a health care facility (Primary) Risk and functional assessment AWV completed today Dyslipidemia - Med reconciliation completed and compliance discussed. - pt to continue present medications. Lipid Panel Results: Results for orders placed or performed in visit on 05/26/23 LIPID PANEL WITH DIRECT LDL IF TG IS HIGH Result Value Ref Range Triglycerides 119 <=174 mg/dL Cholesterol 157 <200 mg/dL HDL Cholesterol 68 >39 mg/dL Non-HDL Cholesterol 89 <=159 mg/dL LDL Cholesterol 65 <=129 mg/dL Gastroesophageal reflux disease without esophagitis -continue following with pcp HTN, goal below 130/80 - Med reconciliation completed and compliance discussed. - pt to continue present medications. BP Readings from Last 3 Encounters: 05/31/24 130/64 11/30/23 118/64 05/26/23 130/74 Migraine with aura and without status migrainosus, not intractable - Med reconciliation completed and compliance discussed. - pt to continue present medications. Stenosis of left vertebral artery - Med reconciliation completed and compliance discussed. - pt to continue present medications. Follow Up: Return in 1 year (on 05/31/2025) for 12 month Subsequent Adult Wellness Visit. | For: 12 month Subsequent Adult Wellness Visit | Check-out note: 12 month Subsequent Adult Wellness Visit Would patient like to schedule next AWV visit? Yes Maggie Glover RN AD8 Dementia Screening Interview Person answering questions: patient Remember, "Yes, a change" indicates that there has been a change in the last several years caused by cognitive (thinking and memory) problems 1. Problems with judgement (eg: problems making decisions, bad financial decisions, problems with thinking). No (0) 2. Less interest in hobbies/activities. No (0) 3. Repeats the same things over and over (questions, stories, or statements). No (0) 4. Trouble learning how to use a tool, appliance, or gadget (eg: VCR, computer, microwave, remote control). No (0) 5. Forgets correct month or year. No (0) 6. Trouble handling complicated financial affairs (eg: balancing checkbook, income taxes, paying bills). No (0) 7. Trouble remembering appointments. No (0) 8. Daily problems with thinking and/or memory. No (0) TOTAL AD8: 0 - AD8 Dementia Screening Score The final score is a sum of the number items marked "Yes, A Change". 0 - 1: Normal cognition; 2 or greater: Cognitive impairments is likely to be present - further testing required documented in this encounter Miscellaneous Notes * Pt Handout (on AVS) - Maggie Glover RN - 05/31/2024 2:36 PM EDT 06223 Preventing Falls: How to Prepare and What to Do Falling is not something you want to think about. But it can make a big difference to plan ahead. If you're prepared, you'll know how to get help. And you'll be less likely to panic if you fall. Thismeans you'll be able to do what's needed to get help right away. How to prepare Have someone check on you daily, either in person or by phone. Keep a list of emergency numbers near the phone. Always have a way to call for help. Keep a cell phone with you at all times. Or talk with your healthcare provider about how to set up a home monitoring service. This involves wearing a small device around your neck or wrist. If you fall, you can press the button on the device. This alerts emergency responders. Talk with your healthcare provider about an exercise program that's right for you. Regular exercise may reduce the risk of falling and the risk for injury related to a fall. Have good lighting in your home. Don't use throw rugs, because they can raise your risk of tripping and falling. Add grab bars in the bathroom to help reduce the risk of falling. Small changes canmake your home safer. Talk with your healthcare provider about making your home safer. What to do if you fall Above all, try to stay calm: If you start to fall, try to relax your body. This will reduce the impact of the fall. After you fall, press your monitor button, or use your phone to call for help. Don't guerrero to get up. First, make sure you're not hurt. Roll onto your side, then crawl to a chair. Pull yourself up onto the chair slowly. Get checked if you struck your head, lost consciousness, were confused afterward, or have any other concerns for injury. Tell your healthcare provider that you fell. They can check you for injuries as needed, try to determine what made you fall, and help prevent you from falling again. A note to family and friends If you're with a loved one when they start to fall, don't try to stop the fall. Ease the person to the floor carefully, so neither of you gets hurt. Don't leave the person alone. And don't try to move them, especially if they may have hurt their head or neck. Check for injuries. If help is needed right away, call 911. Last Reviewed Date: 09/03/202219994047-0984 [employer]. All rights reserved. This information is not intended as a substitute for professional medical care. Always follow your healthcare professional's instructions. * Pt Handout (on AVS) - Maggie Glover RN - 05/31/2024 2:36 PM EDT Images from the original note were not included. [id number] Exercises to Prevent Falls Certain types of exercises may help make you less likely to fall. Try the ones below or do other exercises that your healthcare provider suggests. Depending on your health, you may need to start slowly. Don't let that stop you. Even small amountsof exercise can help you. Talk with your healthcare provider before starting any exercise program. Improve balance Many types of exercise can help improve balance. Noris chi and yoga are good examples. Here's anotherone to try. You can do it anytime and almost anywhere. Stand next to a counter or solid support. Push yourself up onto your tiptoes. Hold for 5 seconds. If you start to lose your balance, hold on to the counter. Rest and repeat 5 times. Work up to holding for 20 to 30 seconds, if you can. Increase flexibility Being more flexible makes it easier for you to move around safely. Try exercises like the seatedhamstring stretch. o Sit in a chair and put one foot on a stool. o Straighten your leg and reach with both hands down either side of your leg. Reach as far down your leg as you can. o Hold for about 20 seconds. o Go back to the starting position. Then repeat 5 times. Switch legs. o o Build strength o Resistance exercises help build strength. You can do them without equipment. Or you can use weights, elastic bands, or special machines. One such exercise is called the biceps curl. You can hold a 1-pound weight or even a can of soup. Do this exercise at least 3 times a week. Strive for every day. Sit up straight in a chair. Keep your elbow close to your body and your wrist straight. Bend your arm, moving your hand up to your shoulder. Then slowly lower your arm. Repeat 5 times. Switch to the other arm. Build your staying power Aerobic exercises make your heart and lungs stronger so you can keep moving longer. Walking and swimming are 2 of the best types of exercises you can do. Using a stationary bike is great, too. Find an aerobic exercise that you enjoy. Start slowly and build up. Even 5 minutes is helpful. Aim for a goal of 30 minutes, at least 3 times a week. You don't have to do 30 minutes in 1 session. Break it up and walk a little throughout the day. Starting out safely and slowly Start easy. Slowly work up to doing more. Talk with your healthcare provider about the best exercises for you. Call senior centers or health clubs about exercise programs. If needed, have a family member watch you walk every so often to check your stability. Exercise with a friend. Choose an activity you both enjoy. Be sure to gently warm up and cool down. Drink fluids, such as water, to stay hydrated. If your provider recommended that you limit fluids, ask them how much is OK to drink while exercising. Consider noris chi or yoga to strengthen your balance. Try exercises that you can do anytime, anywhere. Here are 2 examples. Have someone with you whenyou first try these: o Practice walking by placing one foot right in front of the other. o Stand up and sit down 10 times. Repeat this throughout the day. Last Reviewed Date: 08/04/202219997638-0235 [employer]. All rights reserved. This information is not intended as a substitute for professional medical care. Always follow your healthcare professional's instructions. documented in this encounter Plan of Treatment Upcoming Encounters Date Type Department Care Team (Late st Contact Info) Description 07/29/2024 1:40 PM EDT Office Visit Family Practice [facility] 132 [facility] [place] [address] Frank Crowder MD 132 [facility] [place] [address] 06/01/2025 3:00 PM EDT Nurse Only Ancillary [facility] 132 [facility] [place] [address] [facility], Nurse Annual Wellness [facility] 132 [facility] [place] [address] Health Maintenance Due Date Last Done Comments Cologuard 1994 Fecal Occult Blood Test 1994 Sigmoidoscopy 1994 COVID-19 Vaccine ( season) 2024 11/30/2023, 01/27/2022, 09/20/2021, Additional history exists GFR 05/26/2024 05/26/2023, 03/05, 10/01/2020, Additional history exists Influenza Vaccine (FLU shot) (#1) 2024 09/23/2023, 07/30/2022, 08/20/2021, Additional history exists Adult Wellness Visit 05/31/2025 05/31/2024, 05/26/20 Depression Screening 05/31/2025 05/31/2024 Colonoscopy 12/05/2025 12/06/2015, [...] as of this encounter Visit Diagnoses Diagnosis Routine general medical examination at a health care facility- Primary Risk and functional assessment Screening for unspecified condition Dyslipidemia Other and unspecified hyperlipidemia Gastroesophageal reflux disease without esophagitis Esophageal reflux HTN, goal below 130/80 Unspecified essential hypertension Migraine with aura and without status migrainosus, not intractable Migraine with aura, without mention of intractable migraine without mention of status migrainosus Stenosis of left vertebral artery documented in this encounter Care Teams Event Marketing Assistant Relationship Specialty Start Date End Date Frank Crowder MD [address] [place] [address] PCP - General Family Medicine 01/18/21 documented as of this encounter
--- OUTSIDE RECORDS SUMMARY | 2024-09-20 16:56 | External Medical Summary | Summary of Care ---
Author Name Unknown Organization [facility] Address [address] [place] [address] Phone [phone] Care Team Providers Care Professor Criminal Justice Name Role Phone Frank Crowder MD Primary Care Provider [phone] Reason for Visit * Reason Onset Date Comments Health Maintenance 06/01/2024 Encounter Details Date Type Department Care Team (Late st Contact Info) Description 06/01/2024 Telephone Family Practice [facility] [address] [place] [address] Frank Crowder MD [address] [facility] [address] [facility] Maintenance Allergies Active Allergy Reactions Criticality [...] ABDOMINAL PAIN 120 Tablet 11 11/29/2023 Active Pgcnbwsnck-SXPE-Hptb eine 50-325-40 MG Oral Tablet (Fioricet) Take [...] encounter Miscellaneous Notes * Telephone Encounter - Rhea Leonard LPN [...] not calls Care Gap Outreach Action Taken: [facility] message sent documented in this encounter Plan of Treatment Upcoming Encounters Date Type Department Care Team (Late st Contact Info) Description 07/29/2024 1:40 PM EDT Office Visit Family Practice [facility] [address] [place] [address] Frank Crowder MD [address] [place] [address] 06/01/2025 3:00 PM EDT Nurse Only Ancillary [facility] [place] [address] Frank, Nurse Annual Wellness [facility] [place] [address] Health Maintenance Due Date Last Done Comments [...] filedocumented as of this encounter Care Teams Professor Criminal Justice Relationship Specialty Start Date End Date Frank Crowder MD [address] [place] [address] PCP - General Family Medicine 01/18/21 documented as of this encounter
--- OUTSIDE RECORDS SUMMARY | 2024-09-20 16:56 | External Medical Summary | Summary of Care ---
Author Name Unknown Organization [facility] Address [address] [place] [address] Phone [phone] Care Team Providers Care Wheel Aligner Name Role Phone Frank Crowder MD Primary Care Provider [phone] Reason for Visit * Reason Comments Outpatient Testing Encounter Details Date Type Department Care Team (Late st Contact Info) Description 07/24/2024 3:40 PM EDT Laboratory Laboratory, [facility] [address] [place] [address] [facility] [address] [place] [address] Hypertension, unspecified type Allergies Active Allergy Reactions Criticality Noted Date [...] neck pain 90 Tablet 1 07/17/2024 Active Olsdlxsbpt-EPOA-Regi eine 50-325-40 MG Oral Tablet (Fioricet) Take 1 Tablet by mouth every 6 hours as needed (abd pain/neck pain). 90 Tablet 07/20/2024 Active Atorvastatin Calcium 40 MG Oral Tablet (Lipitor) Take 1 Tablet by mouth in the morning. 90 Tablet 3 07/24/2024 Active documented as of this encounter (statuses [...] MCG/0.3 mL, 12 YRS AND ABOVE, IM (PFIZER-Comirnat) 11/30/2023 Pneumococcal Conjugate Vacc, 13 Valent (Prevnar) [...] on file documented as of this encounter Plan of Treatment Upcoming Encounters Date Type Department Care Team (Late st Contact Info) Description 06/20/2025 2:30 PM EDT Nurse Only Ancillary [facility] [place] [address] [place] [address] Zac Nurse Annual Wellness [facility] [address] [place] [address] Pending Results Name Type Priority Associated Diagnoses Date /Time COMPREHENSIVE METABOLIC PANEL Lab Routine Hypertension, unspecified type 07/24/2024 3:38 PM EDT Health Maintenance Due Date Last Done Comments [...] this encounter Visit Diagnoses Diagnosis Hypertension, unspecified type documented in this encounter Care Teams Wheel Aligner Relationship Specialty Start Date End Date Frank Crowder MD 132 [facility] [place] [address] PCP - General Family Medicine 01/18/21 documented as of this encounter
--- OUTSIDE RECORDS SUMMARY | 2024-09-20 16:56 | External Medical Summary | Summary of Care ---
Author Name Unknown Organization [facility] Address [address] [place] [address] Phone [phone] Care Team Providers Care Channel Development Director Name Role Phone Lora Wong MD Primary Care Provider [phone] Reason for Visit * Reason Onset Date Comments Medication Refill 06/26/2024 Encounter Details Date Type Department Care Team (Late st Contact Info) Description 06/26/2024 Refill Family Practice [facility] [address] [facility] [place] [address] [facility]ora Wong MD [address] [facility] [place] [address] Allergies Active Allergy Reactions Criticality Noted Date Comments Shrimp Flavor 09/16/2015 shrimp seafood documented as of this encounter (statuses as of 06/27/2024) Medications Medication Sig Dispensed Refills Start Date [...] neck pain 90 Tablet 1 05/19/2024 Active Xhydefwqmp-KDIP-Q affeine 50-325-40 MG Oral Tablet (Fioricet) Take 1 Tablet by mouth every 6 hours as needed (abd pain/neck pain). 90 Tablet 06/27/2024 Active Rkjslhmfzr-NCDT-B affeine 50-325-40 MG Oral Tablet (Fioricet) Take 1 Tablet by mouth every 6 hours as needed (abd pain/neck pain). 90 Tablet 06/02/2024 06/26/2024 Discontinue d(Refill) documented as of this encounter (statuses as of 06/27/2024) Active Problems Problem Noted Date Diagnosed Date [...] as of this encounter (statuses as of 06/27/2024) Resolved Problems Problem Noted Date Diagnosed Date Resolved Date FILIBERTO (generalized anxiety disorder) 01/18/2021 01/27/2021 Overview: Neurology started him on lexapro; it was felt that his vertiginous episodes were related to anxiety and NOT a TIA or the incidentally found vestibular artery stenosis Acute vestibular syndrome 02/20/2020 Chronic neck pain 02/20/2020 03/24/2022 documented as of this encounter (statuses as of 06/27/2024) Immunizations Name Administration Dates Next Due COVID-19 [...] Telephone Encounter - Lora Wong MD - 06/27/2024 12:42 PM EDTSigned Prescriptions: Disp Refills Wkmwzpzxla-NGDF-Pbvbidkf 50-325-40 MG Oral*90 Tab*0 Sig: Take 1 Tablet by mouth every 6 hours as needed (abd pain/neck pain). Authorizing Provider: LORA WONG * [facility] 9:57 AM EDT Pending Prescriptions: Disp Refills Xcitmytmmu-WXGB-Hrmwjtjv 50-325-40 MG Oral*90 Tab*0 Sig: Take 1 Tablet by mouth every 6 hours as needed (abd pain/neck pain). * [facility] - [facility]27/[facility]24 9:57 AM EDT I have reviewed the patients controlled substance dispensing history in the Prescription Drug Monitoring Program in compliance with the [facility] regulations before prescribing a controlled substance. PDMP checked on 06/27/2024. Pending Prescriptions: Disp Refills Qfdfmqqyjd-LCJM-Hxibijrb 50-325-40 MG Ora*90 Tab*0 Sig: Take 1 Tablet by mouth every 6 hours as needed (abd pain/neck pain). Last Visit: 11/30/2023 (in office), Visit date not found (telemedicine) Next Visit: 07/29/2024 Date medication was last filled: 06/03/24 Date medication is due for refill: 06/24/24 Pharmacy: [facility] [id number] Is this request for a controlled substance? Yes and Urine Drug Screen Not completed Toxicology results: No results found for this or any previous visit. Please approve if appropriate. Thank you, Kathy Das, PharmD Clinical Pharmacist [facility] ([facility]) 06/27/24 9:57 AM [phone] documented in this encounter Plan of Treatment Upcoming Encounters Date Type Department Care Team (Late st Contact Info) Description 07/29/2024 1:40 PM EDT Office Visit Family Practice [facility] [place] [address] Lora Wong MD [address] [place] [address] 06/20/2025 2:30 PM EDT Nurse Only Ancillary [facility] 132 [facility] [place] [address] Zac, Nurse Annual Wellness [facility] 132 [facility] [place] [address] Health Maintenance Due Date Last Done Comments [...] filedocumented as of this encounter Care Teams Channel Development Director Relationship Specialty Start Date End Date Lora Wong MD 132 [facility] [place] [address] PCP - General Family Medicine 01/18/21 documented as of this encounter
--- OUTSIDE RECORDS SUMMARY | 2024-09-20 16:56 | External Medical Summary | Summary of Care ---
Author Name Unknown Organization [facility] Address [address] [place] [address] Phone [phone] Care Team Providers Care Physician Assistant Primary Care Name Role Phone Lora Wong MD Primary Care Provider [phone] Reason for Visit * Reason Onset Date Comments Medication Refill 05/11/2024 Encounter Details Date Type Department Care Team (Late st Contact Info) Description 05/11/[address] [facility] [address] [facility] [place] [address] Lora Wong MD [address] [facility] [place] [address] Allergies Active Allergy Reactions Criticality Noted Date Comments Shrimp Flavor 09/16/2015 shrimp seafood documented as of this encounter (statuses as of 05/12/2024) Medications Medication Sig Dispensed Refills Start Date [...] for neck pain 90 Tablet 1 03/21/2024 Active Xnxsklksui-SCZC-T affeine 50-325-40 MG Oral Tablet (Fioricet) Take 1 Tablet by mouth every 6 hours as needed (abd pain/neck pain). 90 Tablet 05/12/2024 Active Wbdhzyjwxg-WMBU-S affeine 50-325-40 MG Oral Tablet (Fioricet) Take 1 Tablet by mouth every 6 hours as needed (abd pain/neck pain). 90 Tablet 04/20/2024 05/11/2024 Discontinue d(Refill) documented as of this encounter (statuses as of 05/12/2024) Active Problems Problem Noted Date Diagnosed Date [...] as of this encounter (statuses as of 05/12/2024) Resolved Problems Problem Noted Date Diagnosed Date Resolved Date FILIBERTO (generalized anxiety disorder) 01/18/2021 01/27/2021 Overview: Neurology started him on lexapro; it was felt that his vertiginous episodes were related to anxiety and NOT a TIA or the incidentally found vestibular artery stenosis Acute vestibular syndrome 02/20/2020 Chronic neck pain 02/20/2020 03/24/2022 documented as of this encounter (statuses as of 05/12/2024) Immunizations Name Administration Dates Next Due COVID-19 [...] Telephone Encounter - Lora Wong MD - 05/12/2024 3:57 PM EDTSigned Prescriptions: Disp Refills Tpdqwnhasn-CGZT-Ymtijvfn 50-325-40 MG Oral*90 Tab*0 Sig: Take 1 Tablet by mouth every 6 hours as needed (abd pain/neck pain). Authorizing Provider: LORA WONG * Telephone Encounter - Stefany Gore [facility] - 05/12/2024 8:36 AM EDTPending Prescriptions: Disp Refills Gqovedvlec-CPYT-Zzzvegph 50-325-40 MG Oral*90 Tab*0 Sig: Take 1 Tablet by mouth every 6 hours as needed (abd pain/neck pain). * Telephone Encounter - Stefany Gore [facility] - 05/12/2024 8:33 AM EDT I have reviewed the patients controlled substance dispensing history in the Prescription Drug Monitoring Program in compliance with the [facility] regulations before prescribing a controlled substance. PDMP checked on 05/12/2024. Pending Prescriptions: Disp Refills Miqwcqaxbn-MUPJ-Vedsuhyr 50-325-40 MG Ora*90 Tab*0 Sig: Take 1 Tablet by mouth every 6 hours as needed (abd pain/neck pain). Last Visit: 11/30/2023 (in office), Visit date not found (telemedicine) Next Visit: 06/09/2024 Date medication was last filled: 04/21/24 Date medication is due for refill: 05/12/24 Pharmacy: [facility] Is this request for a controlled substance? Yes and Urine Drug Screen Not completed Toxicology results: No results found for this or any previous visit. Please approve if appropriate. Thanks, Stefany Gore Clinical Pharmacist [facility] ([facility]) [phone] 05/12/2024, 8:33 AM documented in this encounter Plan of Treatment Upcoming Encounters Date Type Department Care Team (Late st Contact Info) Description 05/31/2024 2:00 PM EDT Nurse Only Ancillary [facility] [address] [place] [address] Zac, Nurse Annual Wellness [facility] [place] [address] 06/09/2024 1:20 PM EDT Office Visit Family Practice [facility] [address] [place] [address] Lora Wong MD [address] [place] [address] Health Maintenance Due Date Last Done Comments [...] filedocumented as of this encounter Care Teams Physician Assistant Primary Care Relationship Specialty Start Date End Date Lora Wong MD [address] [place] [address] PCP - General Family Medicine 01/18/21 documented as of this encounter
--- OUTSIDE RECORDS SUMMARY | 2024-09-20 16:56 | External Medical Summary | Summary of Care ---
Author Name Unknown Organization [facility] Address [address] [place] [address] Phone [phone] Care Team Providers Care Ship Fastener Name Role Phone Lora Wong MD Primary Care Provider [phone] Reason for Visit * Reason Onset Date Comments Medication Refill 07/17/2024 Encounter Details Date Type Department Care Team (Late st Contact Info) Description 07/17/2024 Refill Family [facility] [address] [facility] [address] [facility]ora [facility] MD [address] [facility] [address] Allergies Active Allergy Reactions Criticality Noted Date Comments Shrimp Flavor 09/16/2015 shrimp seafood documented as of this encounter (statuses as of 07/17/2024) Medications Medication Sig Dispensed Refills Start Date [...] ABDOMINAL PAIN 120 Tablet 11 11/29/2023 Active Mkxpuvfxme-SRYM-A affeine 50-325-40 MG Oral Tablet (Fioricet) Take 1 Tablet by mouth every 6 hours as needed (abd pain/neck pain). 90 Tablet 06/27/2024 Active Baclofen 10 MG Oral Tablet (Lioresal) 1 tablet three times a day as needed for neck pain 90 Tablet 1 07/17/2024 Active Baclofen 10 MG Oral Tablet (Lioresal) 1 tablet three times a day as needed for neck pain 90 Tablet 1 05/19/2024 07/17/2024 Discontinue d(Refill) documented as of this encounter (statuses as of 07/17/2024) Active Problems Problem Noted Date Diagnosed Date [...] as of this encounter (statuses as of 07/17/2024) Resolved Problems Problem Noted Date Diagnosed Date Resolved Date FILIBERTO (generalized anxiety disorder) 01/18/2021 01/27/2021 Overview: Neurology started him on lexapro; it was felt that his vertiginous episodes were related to anxiety and NOT a TIA or the incidentally found vestibular artery stenosis Acute vestibular syndrome 02/20/2020 Chronic neck pain 02/20/2020 03/24/2022 documented as of this encounter (statuses as of 07/17/2024) Immunizations Name Administration Dates Next Due COVID-19 [...] Telephone Encounter - Lora Wong MD - 07/17/2024 4:07 PM EDTSigned Prescriptions: Disp Refills Baclofen 10 MG Oral Tablet (Lioresal) 90 Tab*1 Si tablet three times a day as needed for neck pain Authorizing Provider: LORA WONG * Telephone Encounter - Lottie Hirsch LPN - 07/17/2024 3:06 PM EDTPending Prescriptions: Disp Refills Baclofen 10 MG Oral Tablet (Lioresal) 90 Tab*1 Si tablet three times a day as needed for neck pain * Telephone Encounter - Lottie Hirsch LPN - 07/17/2024 3:05 PM EDT Did you pend patient's preferred pharmacy and medication before forwarding?yes Pharmacy: [facility] [id number] Pending Prescriptions: Disp Refills Baclofen 10 MG Oral Tablet (Lioresal) 90 Tab*1 Si tablet three times a day as needed for neck pain Last Visit: 11/30/2023 (in office), Visit date not found (telemedicine) Next Visit: 07/24/2024 If no future appointments scheduled, and last appointment is greater than a year ago, please schedule patient for a follow-up appointment Last date the medication was ordered: 05/19/2024 Patient Comment: BACLOFEN 10mg relieves muscle spasm, tightness, pain in all sides of my neck due to osteoarthritis cervical vertebrae, and right knee, cold air, stormy weather, aggravate pain, no adverse reactions other meds, no side effects, use as prescribed, 30 days (with 1 refill) and 60 days is 07/18/24 Is this request for a controlled substance?No [...] LDL NOT APPLICABLE 05/21/2020 04:31 PM ALT 21 05/26/2023 04:23 PM ALT 19 05/21/2020 04:31 PM * Telephone Encounter - Peter Burns - 07/17/2024 2:50 PM EDTPending Prescriptions: Disp Refills Baclofen 10 MG Oral Tablet (Lioresal) 90 Tab*1 Si tablet three times a day as needed for neck pain documented in this encounter Plan of Treatment Upcoming Encounters Date Type Department Care Team (Late st Contact Info) Description 07/24/2024 2:40 PM EDT Office Visit Family Practice [facility] [address] [place] [address] Lora Wong MD [address] [place] [address] 06/20/2025 2:30 PM EDT Nurse Only Ancillary [facility] [address] [place] [address] Zac, Nurse Annual Wellness [facility] [address] [place] [address] Health Maintenance Due Date Last Done Comments Katy 1994 Fecal Occult Blood Test 1994 Sigmoidoscopy [...] filedocumented as of this encounter Care Teams Ship Fastener Relationship Specialty Start Date End Date Lora Wong MD [address] [place] [address] PCP - General Family Medicine 01/18/21 documented as of this encounter
--- OUTSIDE RECORDS SUMMARY | 2024-09-20 16:56 | External Medical Summary | Summary of Care ---
Author Name Unknown Organization [facility] Address [address] [place] [address] Phone [phone] Care Team Providers Care Dye Can Operator Name Role Phone Frank Crowder MD Primary Care Provider [phone] Reason for Visit * Reason Onset Date Comments TRIAGE 08/03/2024 Encounter Details Date Type Department Care Team (Late st Contact Info) Description 08/03/2024 Telephone Virtual Headache [facility] [address] [place] [address] Hospital, Virtual Headache [address] [place] [address] Dr Yohannes Reid [place] [id number] TRIAGE Allergies Active Allergy Reactions Criticality Noted Date Comments Shrimp Flavor 09/16/2015 shrimp seafood documented as of this encounter (statuses as of 08/09/2024) Medications Medication Sig Dispensed Refills Start Date [...] neck pain 90 Tablet 1 07/17/2024 Active Galpcxuxws-HEET-Xxxu eine 50-325-40 MG Oral Tablet (Fioricet) Take 1 Tablet by mouth every 6 hours as needed (abd pain/neck pain). 90 Tablet 07/20/2024 Active Atorvastatin Calcium 40 MG Oral Tablet (Lipitor) Take 1 Tablet by mouth in the morning. 90 Tablet 3 07/24/2024 Active documented as of this encounter (statuses as of 08/09/2024) Active Problems Problem Noted Date Diagnosed Date [...] as of this encounter (statuses as of 08/09/2024) Resolved Problems Problem Noted Date Diagnosed Date Resolved Date FILIBERTO (generalized anxiety disorder) 01/18/2021 01/27/2021 Overview: Neurology started him on lexapro; it was felt that his vertiginous episodes were related to anxiety and NOT a TIA or the incidentally found vestibular artery stenosis Acute vestibular syndrome 02/20/2020 Chronic neck pain 02/20/2020 03/24/2022 documented as of this encounter (statuses as of 08/09/2024) Immunizations Name Administration Dates Next Due COVID-19 mRNA, LNP-s, No Pre serve, 2-Dose Series (Moderna) 01/16/2021,12/19/2020 COVID-19, MRNA-LNP, PF, 30 M CG/0.3 mL, 12 YRS AND ABOVE, IM (PresentationTube-Comirnat) 11/30/2023 Pneumococcal Conjugate Vacc, 13 Valent (Prevnar) [...] encounter Miscellaneous Notes * Telephone Encounter - Flash Camacho RPh - 08/09/2024 8:44 AM EST Noted, thanks. Pt will not included in the [facility] headache [facility] since he states he is not having headaches. Pt mentioned he uses fioricet for neck pain also. [facility] * Telephone Encounter - Hailey Theodore CPhT - 08/03/2024 1:47 PM EDT Patient returned call, states that he does not get headaches anymore. Pt was not able to answer questions. Thank you, Hailey Theodore [employer] Supervisor [facility] 08/03/2024,1:51 PM * Telephone Encounter - Sandra Valadez armored car messenger - 08/03/2024 1:34 PM EDT Pt calling to check on status of voicemail. Sent pt to hailey who left the voicemail. Caller can be reached at [phone]. Thank you, Sandra Valadez CPhT [employer] Supervisor II [facility] ([facility]) 08/03/2024,1:34 PM * Telephone Encounter - Hailey Theodore CPhT - 08/03/2024 12:48 PM EDT Attempted to contact patient. Please ask patient a good time to reach them if they return call. Thank you, Hailey Theodore [employer] Supervisor [facility] 08/03/2024,12:51 PM documented in this encounter Plan of Treatment Upcoming Encounters Date Type Department Care Team (Late st Contact Info) Description 06/20/2025 2:30 PM EDT Nurse Only Ancillary [facility] [address] Frank, Nurse Annual Wellness [facility] 132 [facility] [place] [address] Health Maintenance Due Date Last Done Comments [...] filedocumented as of this encounter Care Teams Dye Can Operator Relationship Specialty Start Date End Date Frank Crowder MD [address] [place] [address] PCP - General Family Medicine 01/18/21 documented as of this encounter
--- OUTSIDE RECORDS SUMMARY | 2024-09-20 16:57 | External Medical Summary | Summary of Care ---
Author Name Unknown Organization [facility] Address [address] [place] [address] Phone [phone] Care Team Providers Care Plate Grinder Name Role Phone Lora Wong MD Primary Care Provider [phone] Reason for Visit * Reason Onset Date Comments Medication Refill 03/29/2024 Encounter Details Date Type Department Care Team (Late st Contact Info) Description 03/29/2024 [facility]ill [facility] [address] [facility] [address] [facility] [address] [facility] [address] Allergies Active Allergy Reactions Criticality Noted Date Comments Shrimp Flavor 09/16/2015 shrimp seafood documented as of this encounter (statuses as of 03/29/2024) Medications Medication Sig Dispensed Refills Start Date [...] neck pain 90 Tablet 1 03/21/2024 Active Wvnbigncai-BCZI-K affeine 50-325-40 MG Oral Tablet (Fioricet) Take 1 Tablet by mouth every 6 hours as needed (abd pain/neck pain). 90 Tablet 03/29/2024 Active Odkspgppyi-EFZV-R affeine 50-325-40 MG Oral Tablet (Fioricet) Take 1 Tablet by mouth every 6 hours as needed (abd pain/neck pain). 90 Tablet 03/07/2024 03/29/2024 Discontinue d(Refill) documented as of this encounter (statuses as of 03/29/2024) Active Problems Problem Noted Date Diagnosed Date [...] as of this encounter (statuses as of 03/29/2024) Resolved Problems Problem Noted Date Diagnosed Date Resolved Date FILIBERTO (generalized anxiety disorder) 01/18/2021 01/27/2021 Overview: Neurology started him on lexapro; it was felt that his vertiginous episodes were related to anxiety and NOT a TIA or the incidentally found vestibular artery stenosis Acute vestibular syndrome 02/20/2020 Chronic neck pain 02/20/2020 03/24/2022 documented as of this encounter (statuses as of 03/29/2024) Immunizations Name Administration Dates Next Due COVID-19 [...] Telephone Encounter - Lora Wong MD - 03/29/2024 2:40 PM EDTSigned Prescriptions: Disp Refills Zqmtcailmi-NIHE-Zmibasgt 50-325-40 MG Oral*90 Tab*0 Sig: Take 1 Tablet by mouth every 6 hours as needed (abd pain/neck pain). Authorizing Provider: LORA WONG * Telephone Encounter - Rebecca Macias, [facility] - 03/29/2024 1:22 PM EDT Pending Prescriptions: Disp Refills Bjoscstvlp-UUKQ-Yligujai 50-325-40 MG Oral*90 Tab*0 Sig: Take 1 Tablet by mouth every 6 hours as needed (abd pain/neck pain). * Telephone Encounter - Rebecca Macias [facility] - 03/29/2024 1:19 PM EDT I have reviewed the patients controlled substance dispensing history in the Prescription Drug Monitoring Program in compliance with the [facility] regulations before prescribing a controlled substance. PDMP checked on 03/29/2024. Pending Prescriptions: Disp Refills Rjoiikrvqk-WDLU-Toftgwij 50-325-40 MG Ora*90 Tab*0 Sig: Take 1 Tablet by mouth every 6 hours as needed (abd pain/neck pain). Last Visit: 11/30/2023 (in office), Visit date not found (telemedicine) Next Visit: 06/09/2024 Date medication was last filled: 03/07/24 Date medication is due for refill: 03/29/24 Pharmacy: [facility] [address] Is this request for a controlled substance? Yes and Urine Drug Screen Not completed Toxicology results: No results found for this or any previous visit. Please approve if appropriate. Thank you, Rebecca Macias, PharmD Clinical Pharmacist [facility] ([facility]) [phone] 03/29/2024, 1:21 PM documented in this encounter Plan of Treatment Upcoming Encounters Date Type Department Care Team (Late st Contact Info) Description 05/31/2024 2:00 PM EDT Nurse Only [facility]illary [facility] [place] [address] Zac Nurse Annual Wellness [facility] 132 [facility] [place] [address] 06/09/2024 1:20 PM EDT Office Visit Family Practice [facility] 132 [facility] [place] [address] Lora Wong MD [address] [place] [address] Health Maintenance Due Date Last Done Comments Cologuard 1994 Fecal Occult Blood Test 1994 Sigmoidoscopy 1994 COVID-19 Vaccine ( season) 2024 11/30/2023, 01/27/2022, 09/20/2021, Additional history exists Depression Screening 05/26/2024 05/26/2023 GFR 05/26/2024 05/26/2023, 03/05, 10/01/2020, Additional history exists Colonoscopy 12/05/2025 12/06/2015, 01/2016, 12/05/2015 Colorectal Cancer Screening 12/05/2025 Albumin/Creatinine Ratio 06/01/2026 06/01/2023, 08/04 DTaP,Tdap,and Td Vaccines (2 - Td or Tdap) 02/14/2029 02/14/2019 Pneumococcal Vaccine: 65+ Years Completed 04/15/2017, 04/03/2016 Zoster Vaccines Completed 12/19/2018, 03/2018, 09/08/2018, Additional history exists Influenza Vaccine (FLU shot) Completed , 07/30/2022, 08/20/2021, Additional history exists GARDASIL-HPV IMMUNIZATION SERIES Aged Out No longer eligible based on patient's age to complete this topic Hepatitis B Aged Out No longer eligi ble based on patient's age to complete this topic MENINGOCOCCAL (MENACTRA/MENVEO) Aged Out No longer eligible based on patient's age to complete this topic documented as of this encounter Medical Devices Not on filedocumented as of this encounter Care Teams Plate Grinder Relationship Specialty Start Date End Date Lora Wong MD [address] [place] [address] PCP - General Family Medicine 01/18/21 documented as of this encounter
--- OUTSIDE RECORDS SUMMARY | 2024-09-20 16:57 | External Medical Summary | Summary of Care ---
Author Name Unknown Organization [facility] Address [address] [place] [address] Phone [phone] Care Team Providers Care Rn Gyn Name Role Phone Lora Wong MD Primary Care Provider [phone] Reason for Visit * Reason Onset Date Comments Medication Refill 04/20/2024 Encounter Details Date Type Department Care Team (Late st Contact Info) Description 04/20/2024 Refill Family Practice [facility] [address] [facility] [place] [address] Lora Wong MD [address] [facility] [address] Allergies Active Allergy Reactions Criticality Noted Date Comments Shrimp Flavor 09/16/2015 shrimp seafood documented as of this encounter (statuses as of 04/20/2024) Medications Medication Sig Dispensed Refills Start Date [...] neck pain 90 Tablet 1 03/21/2024 Active Qgssradvlg-CDLK-Z affeine 50-325-40 MG Oral Tablet (Fioricet) Take 1 Tablet by mouth every 6 hours as needed (abd pain/neck pain). 90 Tablet 04/20/2024 Active Xotrkqekdd-ZYGA-Q affeine 50-325-40 MG Oral Tablet (Fioricet) Take 1 Tablet by mouth every 6 hours as needed (abd pain/neck pain). 90 Tablet 03/29/2024 04/20/2024 Discontinue d(Refill) documented as of this encounter (statuses as of 04/20/2024) Active Problems Problem Noted Date Diagnosed Date [...] as of this encounter (statuses as of 04/20/2024) Resolved Problems Problem Noted Date Diagnosed Date Resolved Date FILIBERTO (generalized anxiety disorder) 01/18/2021 01/27/2021 Overview: Neurology started him on lexapro; it was felt that his vertiginous episodes were related to anxiety and NOT a TIA or the incidentally found vestibular artery stenosis Acute vestibular syndrome 02/20/2020 Chronic neck pain 02/20/2020 03/24/2022 documented as of this encounter (statuses as of 04/20/2024) Immunizations Name Administration Dates Next Due COVID-19 [...] Telephone Encounter - Lora Wong MD - 04/20/2024 10:38 PM EDTSigned Prescriptions: Disp Refills Wirovuwanm-NZYQ-Nywkzeas 50-325-40 MG Oral*90 Tab*0 Sig: Take 1 Tablet by mouth every 6 hours as needed (abd pain/neck pain). Authorizing Provider: LORA WONG * Telephone Encounter - Jaclyn Conklin [facility] - 04/20/2024 3:33 PM EDTPending Prescriptions: Disp Refills Ojqfyeumpz-XESU-Yzbjtrwx 50-325-40 MG Oral*90 Tab*0 Sig: Take 1 Tablet by mouth every 6 hours as needed (abd pain/neck pain). * Telephone Encounter - Jaclyn Conklin [facility] - 04/20/2024 3:32 PM EDT Patient comment: Relieves pain osteoarthritis cervical vertebrae, right knee, abdominal incisions, stormy weather/seasonal change/inside air conditioning aggravate, this med increases my ability to function, improves my quality of life, allows me to rest, no adverse reactions other meds, no side effects, use as prescribed, 23 days is Saturday 04/21 I have reviewed the patients controlled substance dispensing history in the Prescription Drug Monitoring Program in compliance with the [facility] regulations before prescribing a controlled substance. PDMP checked on 04/20/2024. Pending Prescriptions: Disp Refills Osqnwpafvf-JPMD-Cabzvgpm 50-325-40 MG Ora*90 Tab*0 Sig: Take 1 Tablet by mouth every 6 hours as needed (abd pain/neck pain). Last Visit: 11/30/2023 (in office), Visit date not found (telemedicine) Next Visit: 06/09/2024 Date medication was last filled: 03/29 Date medication is due for refill: 04/20 Pharmacy: [email or web address] [address] Is this request for a controlled substance? Yes and Urine Drug Screen Not completed Toxicology results: No results found for this or any previous visit. Please approve if appropriate. Thank you, Jaclyn Conklin, PharmD Clinical Pharmacist [facility] ([facility]) [phone] 04/20/2024, 3:32 PM documented in this encounter Plan of Treatment Upcoming Encounters Date Type Department Care Team (Late st Contact Info) Description 05/31/2024 2:00 PM EDT Nurse Only Ancillary [facility] [address] [place] [address] Frank, Nurse Annual Wellness [facility] [place] [address] 06/09/2024 1:20 PM EDT Office Visit Family Practice [facility] [address] [place] [address] Lora Wong MD [address] [facility] [place] [address] Health Maintenance Due Date Last Done Comments Cologuard 1994 Fecal Occult Blood Test 1994 Sigmoidoscopy 1994 COVID-19 Vaccine ( season) 2024 11/30/2023, 01/27/2022, 09/20/2021, Additional history exists Depression Screening 05/26/2024 05/26/2023 GFR 05/26/2024 05/26/2023, 06/2 10/2021, 10/01/2020, Additional history exists Influenza Vaccine (FLU shot) (#1) 2024 09/23/2023, 07/30/2022, 08/20/2021, Additional history exists Colonoscopy 12/05/2025 12/06/2015, 0301/2016, 12/05/2015 Colorectal Cancer Screening 12/05/2025 Albumin/Creatinine Ratio 06/01/2026 06/01/2023, 08/04 DTaP,Tdap,and Td Vaccines (2 - Td or Tdap) 02/14/2029 02/14/2019 *BASELINE EKG FOR HTN Completed 12/03/2015 Pneumococcal Vaccine: 65+ Years Completed 04/15/2017, 04/03/2016 Zoster Vaccines Completed 12/19/2018, 1203/2018, 09/08/2018, Additional history exists HPV (Gardasil) Vaccine [...] filedocumented as of this encounter Care Teams Rn Gyn Relationship Specialty Start Date End Date Lora Wong MD [address] [facility] [place] [address] PCP - General Family Medicine 01/18/21 documented as of this encounter
[2024-09-20] MEDS: lisinopril 5 MG TAB PO SCH (20:22)
[2024-09-20] MEDS: BACLOFEN 10 MG TAB PO SCH (20:22)
[2024-09-20] MEDS: LORazepam 0.5 MG TAB PO STA (20:35)
[2024-09-21 06:30] LABS: Hematocrit (blood only) 40.7 % (42.0-52.0); Hemoglobin 13.9 g/dl (14.0-18.0); Mean Corpuscular Hemoglobin 32.4 pg (25.0-34.0); Mean Corpuscular Hgb Conc 34.2 g/dL (32.0-36.0); Mean Corpuscular Volume 94.9 fL (80.0-100.0); Mean Platelet Volume 9.5 fL (9.4-12.4); Platelet Count 110 K/uL (130-400); RDW Standard Deviation 44.7 fL (36.4-46.3); Red Blood Count 4.29 M/uL (4.70-6.10); White Blood Count 4.84 K/ul (4.8-10.8)
[2024-09-21 06:50] LABS: BUN Creatinine Ratio 13.3 (10-20); Calcium 8.5 mg/dl (8.6-10.3); Creatinine Clr Calc Pharmacy 93.7 ml/min; Magnesium 1.9 mg/dl (1.7-2.4); Phosphorus 3.6 mg/dl (2.5-4.9); Potassium 3.7 mmol/L (3.5-5.1)
[2024-09-21] MEDS: ATORVASTATIN 40 MG TAB PO SCH (07:47)
--- NOTE | 2024-09-21 08:09 | Cardiology Progress Note ---
Date of Service September 21, 2024 Assessment & Plan (1) Elevated troponin: (2) Tachycardia: (3) Weakness: (4) Unwitnessed fall: (5) HTN (hypertension): Plan 74-year-old male who presented to [facility] ED on 09/20/24 after experiencing an unwitnessed fall and unable to get up due to bilateral lower extremity weakness. Fell asleep reading in his chair yesterday evening. Woke up at 2:00 AM and attempted to get out of his chair. His legs gave out and he fell onto his right side. Denies hitting head upon falling or loss of consciousness. Denies lightheadedness, dizziness, or visual changes prior to fall. Generalized weakness at baseline. He lost his partner two years ago and his activity has declined over the past two years. Remains independent with ADLs at home. ED work-up with negative head CT. EKG showed sinus tachycardia with premature supraventricular complexes and rate 117 bpm, no acute ischemic changes. CXR unremarkable. Lyme screen was negative. Blood pressure initially elevated with systolic readings 160-170s and diastolic readings in 100s. Given IV labetalol and blood pressure improved to 141/85. Stopped IV labetalol. Started on low-dose carvedilol 3.125 mg BID. -Overall feeling well today with no angina -Mildly elevated troponins trending down (57.9-128.5-182.9-116-81) likely secondary to demand ischemia in setting tachycardia versus trauma from recent fall -Sinus rhythm with 1st degree AV block with rates in 70-80s and occasional PACs upon telemetry review -Recent ECHO showed LVEF 60-65%, mild LVH, mild aortic stenosis, mildly enlarged aortic root (4.1 cm), and mildly enlarged ascending aorta (4.1 cm) -Heart rate and blood pressure stable -Continue carvedilol 3.125 mg twice daily -Continue REVENUE COORDINATOR lisinopril 5 mg daily -Continue REVENUE COORDINATOR atorvastatin 40 mg daily -Per practice guidelines for ascending aortic aneurysm 3.5 to 4.4 cm, consider annual ECHO to continue to monitor aneurysm size and valvular disease Admission and Anticipated Discharge Date Admission Date: September 20, 2024 Supervising Physician Co-Signing Physician Notes I have personally performed a history and physical examination on the patient. I have reviewed the advance practitioner's documentation, and I agree with, and take responsibility for the plan of care. 74-year-old male presented to the emergency department after experiencing an unwitnessed fall and unable to get up due to bilateral lower extremity weakness. Fall likely secondary to balance disturbance and lower extremity weakness. No syncope or near syncope. Hypertensive on admission prompting addition of carvedilol. Blood pressure trending downward. Denies chest pain or unusual shortness of breath today. Lower extremity weakness improving. Continue carvedilol 3.125 mg twice daily and lisinopril as ordered. Add low-dose aspirin. Continue telemetry monitoring during hospitalization. Echocardiogram reveals preserved LV systolic function with mild aortic valve stenosis. Repeat resting 2D transthoracic echocardiogram recommended in 3 to 5 years for surveillance. Naeem Irving DO, [facility] Subjective 74-year-old male with PMHx significant for first degree AV block, HLD, HTN, GERD, IBS, vertigo, cervical degenerative disc disease, migraine, history of SBO s/p partial colectomy and subsequent reversal, left vertebral artery stenosis, and FILIBERTO who presented to [facility] ED on 09/20/24 for evaluation of weakness and unwitnessed fall. Fell asleep reading in a chair. Woke up at 2:00 AM on 09/20 and went to get out of chair. His legs gave out and he immediately fell onto his right side. Denies hitting his head upon falling. Denies loss of consciousness. Denies lightheadedness, dizziness, or visual changes prior to fall. He was unable to walk and get himself off the floor. Stayed on the floor until the morning when his brother arrived and called EMS. Lost his partner two years ago and his activity has declined over the past two years. Lives alone and remains independent with ADLs. Does not ambulate with assistive devices at home. Uses cane and an electric cart when he runs errands. Seen today and resting comfortably in bed. He is overall feeling better today. Has been working with physical therapy. He feels that he is regaining strength. Doing well getting up and out of bed to chair and ambulating to bathroom in room. Denies lightheadedness, dizziness, dyspnea on exertion, or chest discomfort with activity. Denies shortness of breath at rest, syncope, or wors ening edema. Review of Systems Review of Systems: See HPI for pertinent positives. All others negative other than those noted in the HPI. CONSTITUTIONAL: +weakness. No change in weight, No fatigue, No fevers, No sweats or chills. HEENT: No visual changes, No epistaxis, No bleeding gums, No dysphagia, PULMONARY: No cough, sputum, or hemoptysis, No wheezing, No shortness of breath, and No recent change in breathing. CARDIOVASCULAR: No chest pain, No dyspnea on exertion, No edema, No palpitations, No syncope, No claudication, No calf pain. GASTROINTESTINAL: No change in appetite, No abdominal pain, No change in bowel habits, No significant heartburn, No nausea, No vomiting, No diarrhea, No constipation, No blood in stools or black tarry stools, No dysphagia. HEMATOLOGIC: No abnormal bleeding and No bruising. NEUROLOGICAL: +recent fall. No dizziness, No lightheadedness, Normal balance, No headaches, and No weakness. PSYCH: No sleep disturbances, No mood changes. Physical Exam Physical Exam: Vital signs within normal limits as above. General: Well developed and nourished. No acute distress. A+Ox3. HEENT: Normocephalic. Atraumatic. EOMI. Conjunctiva and sclera clear. NECK: Trachea midline. No thyromegaly. No carotid bruits. No JVD. Carotid upstrokes are brisk. Heart: RRR. S1 and S2 noted. Grade I/ systolic murmur auscultated along left sternal border. No rubs or gallops. PMI non displaced. Lungs: No acute respiratory distress. Fine crackles auscultated along bilateral posterior lower lobes. No wheezes.No rhonchi. Abdomen: Protuberant. Normal bowel sounds. Soft. Nontender. No abdominal bruits. Extremities: Normal capillary refill. +1 BLE pitting edema. No clubbing or cyanosis. Skin: Warm and dry. NEURO: No focal deficits. PSYCH: Appropriate affect and insight. Results & Data Vital Signs (Past 12 Hours) Vital Signs Temp Pulse Pulse Resp BP Pulse Ox O2 Del Method 09/21/24 07:56 78 09/21/24 07:52 36.6 C 77 18 139/71 94 Room Air 09/21/24 03:21 36.7 C 77 18 123/73 95 Room Air 09/20/24 23:04 36.5 C 77 18 107/67 94 Room Air 09/20/24 22:29 77 09/20/24 20:30 Room Air Laboratory Results Cardiac Enzymes 09/20/24 09/20/24 09/21/24 Range/Units 16:59 22:57 05:53 Troponin I High Sens 182.9 H* D 116.0 H* D 81.0 H* D (0-20) pg/ml CBC 09/21/24 Range/Units 05:53 WBC 4.84 (4.8-10.8) K/ul RBC 4.29 L (4.70-6.10) M/uL Hgb 13.9 L (14.0-18.0) g/dl Hct 40.7 L (42.0-52.0) % Plt Count 110 L (130-400) K/uL Comprehensive Metabolic Panel 09/21/24 Range/Units 05:53 Sodium 142 (136-145) mmol/L Potassium 3.7 (3.5-5.1) mmol/L Chloride 109 H (98-107) mmol/L Carbon Dioxide 24 (21-32) mmol/L BUN 10 (6-23) mg/dl Creatinine 0.75 (0.6-1.4) mg/dl Glucose 115 H (70-99(Fasting)) mg/dl Calcium 8.5 L (8.6-10.3) mg/dl Intake and Output 09/20/24 09/21/24 09/21/24 22:59 06:59 14:59 Intake Total 180 / 1180 Output Total 650 / 1051 401 / 1051 Balance -650 / 129 -221 / 129 Intake: Oral 180 / 180 Output: Urine 650 / 1050 400 / 1050 # Bowel Movements Diagnostic Findings Reviewed ECHO from 09/20/24 Left ventricular systolic function is normal LVEF 60-65% Mild concentric left ventricular hypertrophy Aortic valve is not well visualized Aortic valve is mildly calcified Mild valvular aortic stenosis Moderate mitral annular calcification Aortic root is mildly enlarged, 4.1 cm Ascending aorta is mildly enlarged, 4.1 cm Reviewed EKG from 09/20/24 Sinus tachycardia with premature supraventricular complexes 117 QTc 463 Chest X-Ray 09/20/24 09:06 XR chest 1V portable CLINICAL HISTORY: Chest pain, nonspecific COMPARISON STUDY: Chest radiograph October 26, 2017. FINDINGS: Lung volumes are normal. Lungs are clear. There is no pneumothorax or pleural effusion. Cardiomegaly is unchanged. Mediastinal contours are normal. There is no evidence for pulmonary edema. IMPRESSION: No acute cardiopulmonary findings. ACT 112: Negative or not required by law. Electronically signed by: Shon Palencia M.D. 09/20/2024 9:[address] 09/20/24 09:06 CT head/brain wo con CLINICAL HISTORY: 74 years-old Male with fall. Acute head trauma status post fall TECHNIQUE: Multiple axial CT images of the head were obtained without contrast. A dose lowering technique was utilized adhering to the principles of ALARA. CT DOSE: 703.85 mGy.cm COMPARISON: Brain MRI 02/11/2020 FINDINGS: No acute intracranial hemorrhage, midline shift, intracranial mass, hydrocephalus, territorial ischemia or abnormal extra-axial collection. Involutional changes with chronic microvascular ischemic disease. The calvarium is intact. Prior partial ethmoidectomy. The mastoid air cells are clear. IMPRESSION: No acute intracranial abnormality or calvarial fracture. ACT 112: Negative or not required by law. The above report was generated using voice recognition software. It may contain grammatical, syntax or spelling errors. Electronically signed by: Galo Pandya M.D. 09/20/2024 9:25 AM Knee X-Ray 09/20/24 12:00 XR knee RT 1 or 2V routine CLINICAL HISTORY: Recent fall, R knee pain COMPARISON: None FINDINGS: Lucency within the medial tibial plateau is noted with suspected mild depression. However, no significant joint effusion is present. No additional fractures are identified. There is mild medial and patellofemoral compartment osteophytosis. IMPRESSION: Lucency within the medial tibial plateau with suspected mild depression. This favors a medial tibial plateau fracture however there is no significant joint effusion. A CT of the right knee is recommended for confirmation. ACT 112: Negative or not required by law. Electronically signed by: Shon Palencia M.D. 09/20/2024 12:[address] 09/20/24 12:[address] WITHOUT CONTRAST CLINICAL HISTORY: Recent fall, BLE weakness COMPARISON STUDY: CT of the abdomen and pelvis October 24, 2017. TECHNIQUE: Axial images of the lumbar spine were obtained without IV contrast. Sagittal and coronal reformats were viewed. Automated exposure control was utilized for the study. A dose lowering technique was utilized adhering to the principles of ALARA. FINDINGS: For purposes of numbering on this exam, the L5-S1 disc space is assigned to axial image 323 of 377. There are no lumbar spine fractures. No suspicious osseous lesions are identified. Mild lumbar spine levoscoliosis is present. The central canal and neural foramen are suboptimally assessed given CT technique. There is moderate multilevel disc space narrowing, endplate osteophytosis and facet arthrosis within the lumbar spine. Vacuum disc phenomenon is noted at multiple levels. Paravertebral soft tissues are unremarkable. SI joints are intact. Water attenuation right renal lesions favor cysts. Several nonobstructing right renal calculi measure up to 4 mm. IMPRESSION: 1. No acute lumbar spine fracture or subluxation. 2. Moderate multilevel degenerative disc disease and facet arthrosis within the lumbar spine. Suboptimal evaluation of the central canal and neural foramen given CT technique. ACT 112: Negative or not required by law. Electronically signed by: Shon Palencia M.D. 09/20/2024 1:[address] 09/20/24 15:27 EXAM: CT Right Lower Extremity Without Intravenous Contrast Knee INDICATION: Assess x-ray findings. TECHNIQUE: Axial computed tomography images of the right knee without intravenous contrast. Sagittal and coronal reformatted images were created and reviewed. This CT exam was performed using one or more of the following dose reduction techniques: automated exposure control, adjustment of the mA and/or kV according to patient size, and/or use of iterative reconstruction technique. COMPARISON: None available. FINDINGS: Bones/joints: Generalized osseous demineralization noted. There is more pronounced demineralization subcortical medial femoral condyle. There is moderate subchondral cystic change in the medial tibial plateau with chronic appearing depression. No definite acute fracture line is noted. Small joint effusion noted. There is mild patellofemoral spurring. There is narrowing of the medial joint compartment with associated gas. There is mild lateral tibial translation. Soft tissues: No abnormality noted. Vasculature: Mild atherosclerotic calcification noted. No aneurysm. IMPRESSION: 1. No definite acute fracture. 2. Changes noted consistent with old medial tibial plateau fracture and secondary osteoarthritis of the medial compartment. 3. If additional imaging is clinically warranted, MRI is the modality of choice. ACT 112: Negative or not required by law. Electronically signed by Daja Quijano 09-20-2024 4:24 PM Abdominal Arterial Study US 09/21/24 07:18 ABDOMINAL AORTIC ULTRASOUND CLINICAL HISTORY: Abdominal aortic aneurysm. COMPARISON STUDY: CT of the abdomen and pelvis October 24, 2017. TECHNIQUE: Sonography of the abdominal aorta was performed. FINDINGS: The caliber of the proximal abdominal is normal, measuring 2.2 cm. The caliber of the mid abdominal aorta is normal measuring 2.1 cm and the caliber of the distal abdominal aorta is normal, measuring 1.8 cm. Caliber of the proximal bilateral common iliac arteries is normal. There is moderate aortoiliac atherosclerotic plaque. IMPRESSION: Moderate atherosclerotic plaque within the abdominal aorta. No abdominal aortic aneurysm. ACT 112: Negative or not required by law. Electronically signed by: Shon Palencia M.D. 09/21/2024 8:25 AM (5) HTN (hypertension) Hypertension type: unspecified Qualified Code(s): I10 - Essential (primary) hypertension
--- NOTE | 2024-09-21 08:26 | Ultrasound Report ---
ABDOMINAL AORTIC ULTRASOUND CLINICAL HISTORY: Abdominal aortic aneurysm. COMPARISON STUDY: CT of the abdomen and pelvis October 24, 2017. TECHNIQUE: Sonography of the abdominal aorta was performed. FINDINGS: The caliber of the proximal abdominal is normal, measuring 2.2 cm. The caliber of the mid a bdominal aorta is normal measuring 2.1 cm and the caliber of the distal abdominal aorta is normal, me asuring 1.8 cm. Caliber of the proximal bilateral common iliac arteries is normal. There is moderate aortoiliac atherosclerotic plaque. IMPRESSION: Moderate atherosclerotic plaque within the abdominal aorta. No abdominal aortic aneurysm . ACT 112: Negative or not required by law. Electronically signed by: Shon Palencia M.D. 09/21/2024 8:25 AM
--- NOTE | 2024-09-21 12:46 | Hospitalist Progress Note ---
Date of Service September 21, 2024 Assessment & Plan (1) Unwitnessed fall: Plan: Unwitnessed Fall, BLE Weakness: History as per above and HPI. Presenting head CT, CXR unremarkable. Lyme screen - negative. S/p 1L NSS in the ED. Will check XR of right knee- osteoarthritic changes, Lumbar spine CT without contrast- no significant spinal stenosis but it did show degenerative changes throughout. Check orthostatic vitals- pending Will get PT and OT evaluation. (2) Bilateral leg weakness: Plan: Clinically no more leg weakness and will have (3) Elevated troponin: Plan: elevated troponin is secondary to demand ischemia Initial troponin was noted to be high at 128.5 Tachycardia but no significant EKG changes Serial troponins are unremarkable and it trended down to 81.0 as of this morning Doubt any ACS (4) Tachycardia: (5) HTN (hypertension): Plan: Hypertension: BP 168/101, HR fluctuating in the 100s-110s at the time of evaluation in the ED. 10mg IV labetalol ordered to be given in the ED. On lisinopril 5 mg daily which he takes at night - PRN 10mg IV labetalol Q4H for SBP>165 ordered Appreciate cardiology input and recommendation Labetalol has been discontinued and the patient has been put on Coreg 3.125 mg twice daily Blood pressure seems well-controlled and so is the heart rate Plan Dandre Mott is a 74-year-old male with past medical history significant for dyslipidemia, HTN, left vertebral artery stenosis, vertigo, first-degree AV block, GERD without esophagitis, IBS with diarrhea, cervical degenerative disc disease, migraines, history of SBO s/p partial colectomy + subsequent reversal and FILIBERTO who presented to the ED for evaluation on 09/20/2024 via EMS secondary to an unwitnessed fall at home and bilateral lower extremity weakness. Patient was attempting to get out of his recliner earlier this morning around 2AM when suddenly his "legs getting out" and he subsequently fell to the ground. Denies ever hitting his head during his fall or losing consciousness however he was unable to get himself off of the floor; patient subsequently was on the ground until around 7:30AM when his brother arrived and then EMS was called. He landed onto his right hand and right knee during the fall - only endorses mild pain in his right knee which seems to be chronic. Patient still with persistent feeling of bilateral lower extremity weakness however his strength testing on examination was 5/5 in all extremities. No loss of bowel or bladder control. Mentions he has been unable to get up and walk since the fall occurred. Other Chronic Medical Conditions: * IBS with diarrhea - Continue dicyclomine. * HLD - Continue atorvastatin. Can resume taking PRN baclofen for neck pain/muscle spasms. DVT Prophylaxis: SQ Lovenox Code Status: FULL CODE PCP: Frank Crowdre MD Disposition: Admit to Med/Telemetry Admission and Anticipated Discharge Date Admission Date: September 20, 2024 Subjective 09/21/2024 The patient was seen and examined in medical telemetry unit He was admitted with unwitnessed fall at 2 AM while he was trying to go to the bathroom Keyes her legs to be too weak to get up but denies any other significant symptoms prior to the fall Has been feeling much better this morning and the weakness of the legs is resolving Review of Systems Review of Systems: All systems reviewed and are unremarkable except as noted below Physical Exam Physical Exam: Sitting on a chair without any acute distress Constitutional: well developed, well nourished and average body habitus; not ill appearing Eyes: PERRL, conjunctivae normal, anicteric sclerae ENMT: external ear and nose normal, oropharynx normal Neck: trachea midline, no thyromegaly Respiratory: no respiratory distress Auscultation: lungs clear to auscultation bilaterally Cardiovascular: Rate/Rhythm: regular rate and regular rhythm; not tachycardic Heart Sounds: normal S1 and normal S2; no murmur Extremities: no edema Gastrointestinal (Abdomen): Inspection/Auscultation: normal bowel sounds; abdomen not distended Percussion/Palpation: abdomen soft; abdomen nontender Musculoskeletal: Osteoarthritic changes involving the joints in the extremities but no acute arthritis involving any of the joint Neurologic: normal touch/pain/proprioception and moves all extremities; no focal motor deficits Lymphatic: no cervical or axillary lymphadenopathy Results & Data Results & Data Vital Signs (Past 12 Hours) Vital Signs Temp Pulse Pulse Resp BP Pulse Ox O2 Del Method 09/21/24 11:59 36.6 C 80 18 120/80 95 Room Air 09/21/24 07:56 78 09/21/24 07:52 36.6 C 77 18 139/71 94 Room Air 09/21/24 03:21 36.7 C 77 18 123/73 95 Room Air Laboratory Results Short CBC 09/21/24 Range/Units 05:53 WBC 4.84 (4.8-10.8) K/ul Hgb 13.9 L (14.0-18.0) g/dl Hct 40.7 L (42.0-52.0) % Plt Count 110 L (130-400) K/uL BMP 09/21/24 05:53 Sodium 142 Potassium 3.7 Chloride 109 H Carbon Dioxide 24 BUN 10 Creatinine 0.75 Glucose 115 H Calcium 8.5 L Medications Administered Current Inpatient Medications Acetaminophen (Acetaminophen 325 Mg Tab) 650 mg PO Q4H PRN PRN Reason: Pain or Fever Stop: 10/20/24 14:06 Acetaminophen/Butalbital/Caffeine (Butalbital/Acetamin/Caffeine Tab) 1 tab PO Q6H PRN PRN Reason: Headache Stop: 10/20/24 14:37 Last Admin: 09/21/24 12:35 Dose: 1 tab Atorvastatin Calcium (Atorvastatin 40 Mg Tab) 40 mg PO QAM [facility] Stop: 10/21/24 08:59 Last Admin: 09/21/24 07:47 Dose: 40 mg Baclofen (Baclofen 10 Mg Tab) 10 mg PO TID [facility] Stop: 10/20/24 20:59 Last Admin: 09/21/24 07:47 Dose: 10 mg Carvedilol (Carvedilol 3.125 Mg Tab) 3.125 mg PO BIDM [facility] Stop: 10/20/24 16:59 Last Admin: 09/21/24 07:46 Dose: 3.125 mg Dicyclomine HCl (Dicyclomine Hcl 20 Mg Tab) 20 mg PO QID [facility] Stop: 10/20/24 16:59 Last Admin: 09/21/24 12:35 Dose: 20 mg Enoxaparin Sodium (Enoxaparin Inj 40 Mg/0.4 Ml Syr) 40 mg SQ Q24H [facility] Stop: 10/20/24 14:29 Last Admin: 09/20/24 14:40 Dose: 40 mg Lisinopril (Lisinopril 5 Mg Tab) 5 mg PO HS [facility] Stop: 10/20/24 20:59 Last Admin: 12/18/24 20:22 Dose: 5 mg Magnesium Hydroxide (Magnesium Hydroxide Susp 30 Ml Udc) 30 ml PO Q12H PRN PRN Reason: Constipation Stop: 10/20/24 14:06 Ondansetron HCl (Ondansetron Inj 2 Mg/Ml 2 Ml Vial) 4 mg IV Q6H PRN PRN Reason: Nausea Stop: 10/20/24 14:06 Polyethylene Glycol (Polyethylene (Miralax) 17 Gm Pack) 17 gm PO DAILY PRN PRN Reason: Constipation Stop: 10/20/24 14:06 (5) HTN (hypertension) Hypertension type: unspecified Qualified Code(s): I10 - Essential (primary) hypertension
[2024-09-21] MEDS: ASPIRIN 81 MG CHEW PO SCH (17:37)
[2024-09-21 19:52] VITALS: RESP 18
[2024-09-22 07:53] VITALS: TEMP 97.9
--- NOTE | 2024-09-22 10:57 | Hospitalist Progress Note ---
Date of Service September 22, 2024 Assessment & Plan (1) Unwitnessed fall: Plan: Unwitnessed Fall, BLE Weakness: History as per above and HPI. Presenting head CT, CXR unremarkable. Lyme screen - negative. S/p 1L NSS in the ED. Will check XR of right knee- osteoarthritic changes, Lumbar spine CT without contrast- no significant spinal stenosis but it did show degenerative changes throughout. Check orthostatic vitals- pending Will get PT and OT evaluation. Has had PT and OT evaluation and recommended home He remains stable and does not have any significant symptoms Ambulating in the room and in the hallway without any difficulties He will be discharged home this afternoon (2) Bilateral leg weakness: Plan: Clinically no more leg weakness and will have (3) Elevated troponin: Plan: elevated troponin is secondary to demand ischemia Initial troponin was noted to be high at 128.5 Tachycardia but no significant EKG changes Serial troponins are unremarkable and it trended down to 81.0 as of this morning Doubt any ACS Repeat EKG remained unremarkable sinus rhythm without any significant ST-T wave changes (4) Tachycardia: Plan: Resolved (5) HTN (hypertension): Plan: Hypertension: BP 168/101, HR fluctuating in the 100s-110s at the time of evaluation in the ED. 10mg IV labetalol ordered to be given in the ED. On lisinopril 5 mg daily which he takes at night - PRN 10mg IV labetalol Q4H for SBP>165 ordered Appreciate cardiology input and recommendation Labetalol has been discontinued and the patient has been put on Coreg 3.125 mg twice daily Blood pressure seems well-controlled and so is the heart rate Blood pressure is stable but is retrocollis telling Plan Dandre Mott is a 74-year-old male with past medical history significant for dyslipidemia, HTN, left vertebral artery stenosis, vertigo, first-degree AV block, GERD without esophagitis, IBS with diarrhea, cervical degenerative disc disease, migraines, history of SBO s/p partial colectomy + subsequent reversal and FILIBERTO who presented to the ED for evaluation on 09/20/2024 via EMS secondary to an unwitnessed fall at home and bilateral lower extremity weakness. Patient was attempting to get out of his recliner earlier this morning around 2AM when suddenly his "legs getting out" and he subsequently fell to the ground. Denies ever hitting his head during his fall or losing consciousness however he was unable to get himself off of the floor; patient subsequently was on the ground until around 7:30AM when his brother arrived and then EMS was called. He landed onto his right hand and right knee during the fall - only endorses mild pain in his right knee which seems to be chronic. Patient still with persistent feeling of bilateral lower extremity weakness however his strength testing on examination was 5/5 in all extremities. No loss of bowel or bladder control. Mentions he has been unable to get up and walk since the fall occurred. Other Chronic Medical Conditions: * IBS with diarrhea - Continue dicyclomine. * HLD - Continue atorvastatin. Can resume taking PRN baclofen for neck pain/muscle spasms. DVT Prophylaxis: SQ Lovenox Code Status: FULL CODE PCP: Frank Crowder MD Disposition: Admit to Med/Telemetry Admission and Anticipated Discharge Date Admission Date: September 20, 2024 Subjective 09/21/2024 The patient was seen and examined in medical telemetry unit He was admitted with unwitnessed fall at 2 AM while he was trying to go to the bathroom [place] her legs to be too weak to get up but denies any other significant symptoms prior to the fall Has been feeling much better this morning and the weakness of the legs is resolving 09/22/2024 The patient was seen and examined in medical telemetry unit He has been stable and denies any significant symptoms He has a physical therapy and recommended home with home health He will be discharged home this afternoon Review of Systems Review of Systems: All systems reviewed and are unremarkable except as noted below Physical Exam Physical Exam: Sitting on a chair without any acute distress Constitutional: well developed, well nourished and average body habitus; not ill appearing Eyes: PERRL, conjunctivae normal, anicteric sclerae ENMT: external ear and nose normal, oropharynx normal Neck: trachea midline, no thyromegaly Respiratory: no respiratory distress Auscultation: lungs clear to auscultation bilaterally Cardiovascular: Rate/Rhythm: regular rate and regular rhythm; not tachycardic Heart Sounds: normal S1 and normal S2; no murmur Extremities: no edema Gastrointestinal (Abdomen): Inspection/Auscultation: normal bowel sounds; abdomen not distended Percussion/Palpation: abdomen soft; abdomen nontender Neurologic: normal touch/pain/proprioception and moves all extremities; no focal motor deficits Lymphatic: no cervical or axillary lymphadenopathy Results & Data Results & Data Vital Signs (Past 12 Hours) Vital Signs Temp Pulse Pulse Pulse Resp BP BP 09/22/24 08:00 09/22/24 07:52 36.6 C 85 18 126/72 09/22/24 07:31 84 09/22/24 03:50 36.5 C 76 18 159/80 H Pulse Ox O2 Del Method 09/22/24 08:00 Room Air 09/22/24 07:52 93 Room Air 09/22/24 07:31 09/22/24 03:50 96 Room Air Medications Administered Current Inpatient Medications Acetaminophen (Acetaminophen 325 Mg Tab) 650 mg PO Q4H PRN PRN Reason: Pain or Fever Stop: 10/20/24 14:06 Acetaminophen/Butalbital/Caffeine (Butalbital/Acetamin/Caffeine Tab) 1 tab PO Q6H PRN PRN Reason: Headache Stop: 10/20/24 14:37 Last Admin: 09/22/24 06:36 Dose: 1 tab Aspirin (Aspirin 81 Mg Chew) 81 mg PO DAILY ON LICENSE OF [facility] Stop: 10/21/24 17:14 Last Admin: 09/22/24 08:50 Dose: 81 mg Atorvastatin Calcium (Atorvastatin 40 Mg Tab) 40 mg PO QAM ON LICENSE OF [facility] Stop: 10/21/24 08:59 Last Admin: 09/22/24 08:51 Dose: 40 mg Baclofen (Baclofen 10 Mg Tab) 10 mg PO TID ON LICENSE OF [facility] Stop: 10/20/24 20:59 Last Admin: 09/22/24 06:37 Dose: 10 mg Carvedilol (Carvedilol 3.125 Mg Tab) 3.125 mg PO BIDM ON LICENSE OF [facility] Stop: 10/20/24 16:59 Last Admin: 09/22/24 08:50 Dose: 3.125 mg Dicyclomine HCl (Dicyclomine Hcl 20 Mg Tab) 20 mg PO QID ON LICENSE OF [facility] Stop: 10/20/24 16:59 Last Admin: 09/22/24 06:36 Dose: 20 mg Enoxaparin Sodium (Enoxaparin Inj 40 Mg/0.4 Ml Syr) 40 mg SQ Q24H ON LICENSE OF [facility] Stop: 10/20/24 14:29 Last Admin: 09/21/24 15:35 Dose: 40 mg Lisinopril (Lisinopril 5 Mg Tab) 5 mg PO HS ADRIENNE Stop: 10/20/24 20:59 Last Admin: 09/21/24 19:40 Dose: 5 mg Magnesium Hydroxide (Magnesium Hydroxide Susp 30 Ml Udc) 30 ml PO Q12H PRN PRN Reason: Constipation Stop: 10/20/24 14:06 Ondansetron HCl (Ondansetron Inj 2 Mg/Ml 2 Ml Vial) 4 mg IV Q6H PRN PRN Reason: Nausea Stop: 10/20/24 14:06 Polyethylene Glycol (Polyethylene (Miralax) 17 Gm Pack) 17 gm PO DAILY PRN PRN Reason: Constipation Stop: 10/20/24 14:06 (5) HTN (hypertension) Hypertension type: unspecified Qualified Code(s): I10 - Essential (primary) hypertension
[2024-09-22 11:53] VITALS: O2SAT 94
[2024-09-22 15:00] VITALS: BP 126/72; PULSE 76
--- NOTE | 2024-09-23 08:36 | Discharge Summary ---
Date of Service September 23, 2024 Admission HPI Per Admitting Provider Dandre Mott is a 74-year-old male with past medical history significant for dyslipidemia, HTN, left vertebral artery stenosis, vertigo, first-degree AV block, GERD without esophagitis, IBS with diarrhea, cervical degenerative disc disease, migraines, history of SBO s/p partial colectomy + subsequent reversal and FILIBERTO who presented to the ED for evaluation on 09/20/2024 via EMS secondary to an unwitnessed fall at home and bilateral lower extremity weakness. History obtained from patient, patient's brother at bedside and associated chart view. Patient reports that he was attempting get out of his recliner earlier this morning around 2AM when suddenly his "legs gave out" and he subsequently fell to the ground. Patient denies hitting his head during this fall or ever losing consciousness, however he was unable to get up off the floor himself. He remained sitting on the floor until 7:30AM when his brother, Yamil, arrived at the house and called EMS. Patient reports that he did stick out his right hand t o help break his fall. He sustained a minor skin tear to his right palmar region but otherwise denies any pain in his right wrist or hand regions. Patient's brother did not notice any overt neurological deficits (such as facial drooping, slurred speech or word finding difficulty) when he arrived to his house - reports patient was acting at his baseline mental status. Of note, patient currently lives at home alone in a two-story house. Patient reports using a cane to ambulate at baseline due to chronic generalized weakness the generally worsens with exertion. He reports that he has to use a motorized cart at the grocery store because he becomes fatigued with activity at baseline. Patient is typically quite independent with ADLs and still drives. He reports that this sudden onset of his "legs giving out "this morning was very abnormal for him. He does have osteoarthritis of the right knee but otherwise has had no difficulties with his lower extremities besides for his chronic generalized weakness. Does endorse some mild right knee pain at the moment. Patient denies experiencing any visual disturbances prior to his fall. He does not have any prior history of stroke. Patient does not smoke nor have any history of frequent alcohol use. He mentions that his bilateral lower extremity weakness seems to be improving slightly since being in the ED however he is unsure if he feels strong enough to walk around. He has not tried to ambulate yet in the ED. Denies any previous history of tick bites or Lyme disease. Denies any chest pain, SOB, abdominal pain, recent fevers or urinary/bowel habit changes. Head CT in the ED was unremarkable. Chest x-ray also was negative for any acute findings. Initial infectious workup is unrevealing include negative UA. Initial laboratory workup however revealed an elevated troponin of 57.9, repeat troponin in the ED was further bumped to 128.5; patient without any cardiac complaints and presenting EKG did not reveal any overtly acute ST changes. Admission Exam Per Admitting Provider General: WD/WN, NAD, sitting up in bed, very pleasant, conversing appropriately. A+Ox3, euthymic affect. HEENT: Normocephalic, atraumatic. Conjunctivae marisela. External ear and nose normal, oropharynx normal. Respiratory: Normal respiratory effort, lungs clear to auscultation, no wheeze/rales/rhonchi. No accessory muscle use. Cardiovascular: Tachycardic rate, regular rhythm, normal peripheral pulses, 1+ BLE edema. Vessels: No JVD. Abdomen/GI: Active bowel sounds, soft, nondistended, nontender to palpation in all quadrants. Extremities/Musculoskeletal: Extremities motor strength 5/5 in BUE and BLE, actively moves all extremities. Neurologic: No overt focal deficits, CN's II-XI not formally tested but appear grossly intact bilaterally. Skin: No rashes, normal color, warm/dry. Principal Diagnosis Fall likely secondary to orthostatic hypotension, mildly elevated troponin without any evidence of ACS, hypertension Discharge Exam Sitting on a chair without any acute distress Constitutional well developed, well nourished and average body habitus; not ill appearing Eyes PERRL, conjunctivae normal, anicteric sclerae ENMT external ear and nose normal, oropharynx normal Neck trachea midline, no thyromegaly Respiratory no respiratory distress Auscultation: lungs clear to auscultation bilaterally Cardiovascular Rate/Rhythm: regular rate and regular rhythm; not tachycardic Heart Sounds: normal S1 and normal S2; no murmur Extremities: no edema Gastrointestinal (Abdomen) Inspection/Auscultation: normal bowel sounds; abdomen not distended Percussion/Palpation: abdomen soft; abdomen nontender Neurologic normal touch/pain/proprioception and moves all extremities; no focal motor deficits Lymphatic no cervical or axillary lymphadenopathy Discharge Data Allergies Allergy/AdvReac Type Severity Reaction Status Date / Time shrimp AdvReac Unknown GI SYMPTOMS Verified 02/11/20 06:09 Consultations 09/20/24 10:25 ED Decision to Admit Stat 09/20/24 12:00 Consult Cardiology Routine Ordered Studies 09/20/24 09:06 CT head/brain wo con Stat 09/20/24 12:00 CT lumbar spine wo con Urgent 09/20/24 15:27 CT knee RT wo con Urgent 09/21/24 07:18 US abdominal aortic aneurysm Routine Hospital Course (1) Unwitnessed fall: Unwitnessed Fall, BLE Weakness: History as per above and HPI. Presenting head CT, CXR unremarkable. Lyme screen - negative. S/p 1L NSS in the ED. Will check XR of right knee- osteoarthritic changes, Lumbar spine CT without contrast- no significant spinal stenosis but it did show degenerative changes throughout. Check orthostatic vitals- pending Will get PT and OT evaluation. Has had PT and OT evaluation and recommended home He remains stable and does not have any significant symptoms Ambulating in the room and in the hallway without any difficulties He will be discharged home this afternoon (2) Bilateral leg weakness: Clinically no more leg weakness and will have (3) Elevated troponin: elevated troponin is secondary to demand ischemia Initial troponin was noted to be high at 128.5 Tachycardia but no significant EKG changes Serial troponins are unremarkable and it trended down to 81.0 as of this morning Doubt any ACS Repeat EKG remained unremarkable sinus rhythm without any significant ST-T wave changes (4) Tachycardia: Resolved (5) HTN (hypertension): Hypertension: BP 168/101, HR fluctuating in the 100s-110s at the time of evaluation in the ED. 10mg IV labetalol ordered to be given in the ED. On lisinopril 5 mg daily which he takes at night - PRN 10mg IV labetalol Q4H for SBP>165 ordered Appreciate cardiology input and recommendation Labetalol has been discontinued and the patient has been put on Coreg 3.125 mg twice daily Blood pressure seems well-controlled and so is the heart rate Blood pressure is stable but is retrocollis telling Plan Dandre Mott is a 74-year-old male with past medical history significant for dyslipidemia, HTN, left vertebral artery stenosis, vertigo, first-degree AV block, GERD without esophagitis, IBS with diarrhea, cervical degenerative disc disease, migraines, history of SBO s/p partial colectomy + subsequent reversal and FILIBERTO who presented to the ED for evaluation on 09/20/2024 via EMS secondary to an unwitnessed fall at home and bilateral lower extremity weakness. Patient was attempting to get out of his recliner earlier this morning around 2AM when suddenly his "legs getting out" and he subsequently fell to the ground. Denies ever hitting his head during his fall or losing consciousness however he was unable to get himself off of the floor; patient subsequently was on the gr ound until around 7:30AM when his brother arrived and then EMS was called. He landed onto his right hand and right knee during the fall - only endorses mild pain in his right knee which seems to be chronic. Patient still with persistent feeling of bilateral lower extremity weakness however his strength testing on examination was 5/5 in all extremities. No loss of bowel or bladder control. Mentions he has been unable to get up and walk since the fall occurred. Other Chronic Medical Conditions: * IBS with diarrhea - Continue dicyclomine. * HLD - Continue atorvastatin. Can resume taking PRN baclofen for neck pain/muscle spasms. DVT Prophylaxis: SQ Lovenox Code Status: FULL CODE PCP: Frank Crowder MD Disposition: Admit to Med/Telemetry Total Time Total Time Spent Total Time Spent (In Minutes): 35 minutes Discharge Plan Discharge Items Patient Disposition: Home - Home Health Services Reason For Visit: FALL, GENERALIZED WEAKNESS, ELEVATED TROPONIN Discharge Diagnosis: Fall likely secondary to orthostatic hypotension, mildly elevated troponin without any evidence of ACS, hypertension Condition on Discharge: Good Activity: Resume your previous activity Non-emergency contact: Primary Care Provider Call non-emergency contact if: you have any medication questions and your symptoms worsen Follow-up/Referrals: Frank Crowder MD [Primary Care Provider] - 09/25/24 11:00 am Diet: Heart Healthy Addtl Attending Provider Instructions: Please take precautions to avoid fall Use walking device appropriately Tachyarrhythmia of extra time to initiate any activities from resting position Your new medication will be carvedilol 3.125 mg twice daily Fracture pe keep your appointment with your healthcare provider Pending Studies at Discharge: No Stand-Alone Forms: My [facility], Smoking Cessation Medications and DC Order Prescriptions: New carvedilol 3.125 mg Tablet 3.125 mg PO BIDM Qty: 60 0RF Continued ketoconazole 2 % Cream 1 applic TOPICAL UD Rx Instructions: Apply to face and arms. baclofen 10 mg Tablet 10 mg PO TID Rx Instructions: Takes 3x/day scheduled not PRN. dicyclomine 20 mg Tablet 20 mg PO QID atorvastatin 40 mg tablet 40 mg PO QAM lisinopril 5 mg tablet 5 mg PO HS [id number] 50-325-40 mg tablet 1 tab PO Q6H PRN (Reason: Abdominal Pain/Neck Pain) Discharge Orders: Discharge Order (Routine); Ordered 09/22/24 Ordered By: Sakina Kasper Admission Data Admit Date/Time: 09/20/24 10:33 Attending Provider: Sakina Kasper Admit Provider: Sujey Fermin I. Primary Care Provider: Frank Crowder Other Providers: Sujey Fermin I.; [facility] Other Interventions: Discharge Summary Assessment (RN) Last Done: 09/22/24 14:57
--- NOTE | 2024-09-23 12:36 | Electrocardiogram Report ---
Test Reason : Blood Pressure : */* mmHG Vent. Rate : 72 BPM Atrial Rate : 85 BPM P-R Int : 218 ms QRS Dur : 90 ms QT Int : 428 ms P-R-T Axes : 43 -46 58 degrees QTcB Int : 468 ms Sinus rhythm with 1st degree A-V block with occasional Premature ventricular complexes Premature atrial complexes Left anterior fascicular block Inferior infarct (cited on or before 30-Sep-2015) Anteroseptal infarct (cited on or before 24-Oct-2017) Abnormal ECG When compared with ECG of 20-Sep-2024 09:02, (unconfirmed) Premature ventricular complexes are now Present Vent. rate has decreased by 45 bpm Questionable change in initial forces of Septal leads Confirmed by Timoteo Willard ([id number]) on 09/23/2024 12:35:58 PM Referred By: REFERRED SELF Confirmed By: Timoteo Willard
--- NOTE | 2024-09-23 12:36 | Electrocardiogram Report ---
Test Reason : Blood Pressure : */* mmHG Vent. Rate : 117 BPM Atrial Rate : 117 BPM P-R Int : 204 ms QRS Dur : 86 ms QT Int : 332 ms P-R-T Axes : 54 -67 65 degrees QTcB Int : 463 ms Sinus tachycardia with Premature supraventricular complexes Left anterior fascicular block Inferior infarct (cited on or before 30-Sep-2015) Anteroseptal infarct , age undetermined Abnormal ECG When compared with ECG of 12-Feb-2020 06:49, Vent. rate has increased by 47 bpm Anteroseptal infarct is now Present Questionable change in initial forces of Inferior leads Confirmed by Timoteo Willard ([id number]) on 09/23/2024 12:36:42 PM Referred By: Confirmed By: Timoteo Willard
--- NOTE | 2024-09-23 12:42 | Electrocardiogram Report ---
Test Reason : Blood Pressure : */* mmHG Vent. Rate : 80 BPM Atrial Rate : 80 BPM P-R Int : 216 ms QRS Dur : 92 ms QT Int : 406 ms P-R-T Axes : 46 -46 44 degrees QTcB Int : 468 ms Sinus rhythm with marked sinus arrhythmia with 1st degree A-V block Left anterior fascicular block Inferior infarct (cited on or before 30-Sep-2015) Possible Anteroseptal infarct (cited on or before 24-Oct-2017) Abnormal ECG When compared with ECG of 21-Sep-2024 05:39, (unconfirmed) Premature ventricular complexes are no longer Present Questionable change in initial forces of Septal leads Confirmed by Timoteo Willard ([id number]) on 09/23/2024 12:41:38 PM Referred By: REFERRED SELF Confirmed By: Timoteo Willard
== END 2024-09-22 16:10 | disposition home health service (06) | DRG 312 ==
LOC: ED 08:50 → SUATTDRO 10:33 → 2N 10:33

== ENCOUNTER 2025-02-09 10:20 | Inpatient (IN) ==
[2025-02-09] MEDS: MAGNESIUM SULFATE / D5W 1 GM/100 ML BAG IV SCH ×3 (10:45→15:00)
[2025-02-09] MEDS: POTASSIUM CHLORIDE / WTR 10 MEQ/100 ML PLCT IV SCH ×2 (10:46→15:48)
[2025-02-09] MEDS: ONDANSETRON INJ 2 MG/ML 2 ML VIAL IV STA ×2 (10:50→11:44)
[2025-02-09] MEDS: SODIUM BICARB 8.4% INJ 50 MEQ/50 ML SYR IV STA (10:58)
[2025-02-09 11:13] LABS: Hemoglobin 19.1 g/dl (14.0-18.0); Mean Corpuscular Hemoglobin 31.9 pg (25.0-34.0); Mean Corpuscular Hgb Conc 35.4 g/dL (32.0-36.0); Mean Corpuscular Volume 90.2 fL (80.0-100.0); Mean Platelet Volume 10.5 fL (9.4-12.4); Platelet Count 169 K/uL (130-400); RDW Coefficient of Variation 15.1 % (11.5-14.5); RDW Standard Deviation 49.4 fL (36.4-46.3); Red Blood Count 5.99 M/uL (4.70-6.10); White Blood Count 10.77 K/ul (4.8-10.8)
[2025-02-09] MEDS: METOPROLOL TARTRATE 1 MG/ML VIAL IV STA ×3 (11:18→14:24)
[2025-02-09] MEDS: SODIUM CHLORIDE 0.9% 1,000 ML IV SCH ×2 (11:22→14:21)
[2025-02-09] MEDS: SODIUM CHLORIDE 0.9% 1,000 ML IV ONE (11:22)
[2025-02-09 11:28] LABS: Anion Gap 24 (3-11); BUN Creatinine Ratio 12.8 (10-20); Blood Urea Nitrogen 23 mg/dl (6-23); Carbon Dioxide 20 mmol/L (21-32); Chloride 96 mmol/L (98-107); Glucose 139 mg/dl (70-99(Fasting)); Potassium 2.7 mmol/L (3.5-5.1); Sodium 140 mmol/L (136-145)
[2025-02-09 11:33] LABS: Basophils # (auto) 0.02 K/uL (0.00-0.20); Basophils % (auto) 0.2 %; Immature Granulocytes # (auto) 0.04 K/uL (0.01-0.20); Immature Granulocytes % (auto) 0.4 %; Lymphocytes # (auto) 0.28 K/uL (1.20-3.40); Lymphocytes % (auto) 2.6 %; Monocytes # (auto) 0.61 K/uL (0.11-0.59); Monocytes % (auto) 5.7 %; Neutrophils # (auto) 9.82 K/uL (1.40-6.50); Neutrophils % (auto) 91.1 %
[2025-02-09 11:38] LABS: INR 1.3 (0.9-1.1); Prothrombin Time 14.1 Seconds (9.0-12.0)
[2025-02-09 11:39] LABS: Alanine Aminotransferase 18 U/L (7-52); Albumin Globulin Ratio 1.3 (0.9-2); Albumin Level 4.3 gm/dl (3.4-5.0); Alkaline Phosphatase 162 U/L (34-104); Aspartate Aminotransferase 48 U/L (13-39); Bilirubin,Total 0.8 mg/dl (0.2-1.0); Globulin 3.2 gm/dl (2.5-4.0); Magnesium 2.4 mg/dl (1.7-2.4); Total Protein 7.5 gm/dl (6.0-8.3); Troponin I High Sensitivity 284.2 pg/ml (0-20)
[2025-02-09 11:44] LABS: Thyroid Stimulating Hormone 0.436 uIu/ml (0.300-4.500)
[2025-02-09 11:45] LABS: Creatine Kinase 2343 U/L (30-223)
--- NOTE | 2025-02-09 11:53 | Emergency Department Note ---
ED DC CONDITION Conditon at Discharge Condition at Discharge: Critical Impression & Plan Rhabdomyolysis, Fall, Acute kidney injury, Hypothermia, Hypokalemia, Hypotension, Atrial fibrillation with rapid ventricular response ED Provider Note Provider: Lee Kaur MD CHIEF COMPLAINT: Weakness, fall HISTORY OF PRESENT ILLNESS: Patient is a 74-year-old gentleman past medical history of SBO requiring surgery status post colostomy reversal presenting here today via ambulance from his home. Patient evidently lives by himself. He suffered a fall and was on the floor for at least an hour EMS reports. Was able to reach out to get to her phone and call his brother who called the ambulance. Patient reports a little bit of pain to his left knee and otherwise states he feels weak and like he cannot move anything. Later states he feels little bit nauseous. Patient himself not a great historian. Denies chest pain or shortness of breath to me. Again occasionally some nausea. Waxing and waning mental status. EMS reports patient been sick with an illness this past week with decreased intake. Patient brother later arrives and confirms as such. No diarrhea or vomiting reported. States he talked with him he is weak yesterday but found him this morning on the floor. Has had ongoing issues with some falls and leg weakness at times in the past. PAST MEDICAL HISTORY: As noted above MEDICATIONS: Reviewed home medication list SOCIAL HISTORY: Lives by himself PHYSICAL EXAM: GENERAL: alert and oriented responsive verbal stimuli but a little bit drowsy. Head: normocephalic and atraumatic EYES: No injection, discharge or icterus. PERRL, EOMI. NECK: Trachea midline. Supple no midline cervical tenderness appreciated. ENT: Mucous membranes pink and moist. LUNGS: Airway patent. No retractions. Breath sounds clear anteriorly. HEART: Irregularly tachycardic rate and rhythm. No chest wall tenderness ABDOMEN: Soft and non-tender, without guarding or rebound. Lower abdominal soft hernia appreciable. SKIN: Pale mildly diaphoretic. Somewhat torres in appearance. EXTREMITIES: Without swelling, tenderness or deformity NEUROLOGICAL: Moves all lower extremities and wiggles his fingers and toes. No aphasia. No facial droop or slurred speech. Sensation to gross touch normal. EK bpm atrial fibrillation rapid ventricular response. No clear acute ST segment elevation with some inferior ST depression. QTc 47. Left axis notable. CONTINUOUS CARDIAC MONITORING: was ordered and showed a heart rate of 80s to 180s bpm in A-fib/normal sinus with PACs GCS 15. Patient's laboratory studies and imaging reviewed. Differential includes Infection, dehydration, metabolic abnormality, hypo/hyperglycemia, electrolyte disturbance, anemia, hypoxia, cardiac sources, intracerebral event/neurologic, traumatic injury as well as other pathologies. IMPRESSION/MEDICAL DECISION MAKING: Patient presents evidently suffered a fall questionably has been ill recently although later confirmed by patient's brother. Upon initial evaluation in rapid A-fib. He is pale diaphoretic. Notable pressure okay but then clinically he feels worse and looks worse. IV access established. 2 L of IV fluids ordered. Given his unstable rapid A-fib, 200 J electrocardioversion synchronized attempted but quickly returns to rapid A-fib. This was completed twice with quick return to rapid A-fib. Dennt-[id number] blood work indicative of significant hypokalemia. 20 mill equivalents per hour of IV potassium chloride was ordered as well as 2 g of magnesium. If concerns about using additional antiarrhythmics as amiodarone or digoxin given the findings concerning for hypokalemia. Continuous blood pressure and not started support AV bernice blockers at this point. No significant stigmata of trauma on his body and he denies significant pain other than his knee. Patient's brother did arrive shortly after his arrival and was present. Discussed with cardiology who came to bedside Dr. Walter. They are 300 J synchronized shock attempted without sustained conversion. Quick [id number] ultrasound at bedside seems to show good cardiac squeeze without pericardial effusion. No significant CHF history as noted on review of prior records. Small aliquots of metoprolol were eventually administered and heart rate began to become more controlled. Fluids seem to be helping his blood pressure. Mentation improved. Received Zofran for nausea. Blood work here without significant [place] ptosis or severely elevated procalcitonin. Lactate 1 elevated at 4. This is clearing and is decreased renal functions improving on a recheck shortly later here. Sent for CT scans with only isolated T12 compression fracture noted. Urine without clear findings of infection I do not see a clear infectious source. Certainly he seems to be hypokalemic and was volume depleted. Evidence of rhabdomyolysis on laboratory studies but do not see any evidence of compartment syndrome at this point. Will bring into the hospital for further care in the ICU. Cardiology agrees and again his heart rate is now much more controlled even with some periods of sinus rhythm with PACs rather than true A-fib. No significant focal deficit and lower suspicion for CVA or stroke. Does he clear infectious source and defer any possible antibiotics to the inpatient team at this time. DIAGNOSIS: Fall, rhabdomyolysis, rapid A-fib, hypotension, hypokalemia, YOU, T12 compression fracture DISPOSITION: Hospitalist will evaluate Patient's brother was updated with initial findings. Critical Care I have personally spent 125 minutes of critical care time in the direct management of this patient. This includes bedside care, interpretation of diagnostic studies, and testing, discussion with consultants, patient, and family members, and other required patient management activities. These 125 minutes is in excess of all separately billable procedures. ED procedure: Electrical cardioversion Emergent procedure verbal consent for the patient. Patient hypotensive in rapid A-fib pale diaphoretic waxing waning mental status. No sedation provided as emergent. Pads placed in anterior and lateral position and cardioverted twice 200 J synchronized approximately 10 to 15 minutes apart without successful conversion to sinus rhythm. Patient tolerated fairly well without significant discomfort and after both shocks, his mentation did improve some. Past Med/Surg History Problem List (Updated 02/09/25 @ 16:09 by Lee Kaur M.D.) Esophagitis Aneurysmal dilatation Rhabdomyolysis (Acute) Thoracic vertebral fracture Fall (Acute) Acute kidney injury (Acute) Lactic acidosis Hypothermia (Acute) Hypokalemia (Acute) Hypotension (Acute) Atrial fibrillation with rapid ventricular response (Acute) Volume depletion Thrombocytopenia (Acute) Elevated troponin (Acute) Weakness (Acute) Tachycardia Bilateral leg weakness Elevated troponin Unwitnessed fall Acute vestibular syndrome Stroke-like symptoms History of colostomy reversal Hypomagnesemia (Acute) HTN (hypertension) (Chronic) Slurred speech (Acute) Ataxia (Acute) Social History Smoking Status: Never smoker Second Hand Exposure: No; Do You Dip or Chew Tobacco: No; Tobacco Cessation Education Requested by Patient: No Hx Alcohol Use: No Hx Substance Use: No Preferred Language: Martiniquais Communication Ability: Effective Clinical Researcher Required: No Beliefs That Will Affect Care: None Current Living Situation: Alone Other Information That Helps Us Care for You: No Feels Safe at Home: Yes Safety Concerns: Feels Safe At This Time Assistive Devices: Cane, Denture - Upper, Denture - Lower and Glasses Allergies Allergies Allergy/AdvReac Type Severity Reaction Status Date / Time shrimp AdvReac Unknown GI SYMPTOMS Verified 02/11/20 06:09 Home Meds Home Medications Medication Instructions Recorded Confirmed baclofen 10 mg tablet 10 mg PO TID PRN Muscle Spasm/Neck 02/11/20 02/09/25 Pain dicyclomine 20 mg tablet 20 mg PO QID PRN Abdominal Pain 02/11/20 02/09/25 atorvastatin 40 mg tablet 40 mg PO QAM 09/20/24 02/09/25 [id number] 1 tab PO Q6H PRN Abdominal 09/20/24 02/09/25 50 mg-325 mg-40 mg tablet Pain/Neck Pain lisinopril 5 mg tablet 5 mg PO QAM 09/20/24 02/09/25 Results & Data (ED) Vital Signs Vital Signs - 24 hr 02/09/25 10:21 02/09/25 10:27 02/09/25 10:33 Temperature 35.5 C L Temperature Source Rectal Pulse Rate 162 H 162 H 162 H Pulse Rate from SpO2 Sensor Pulse Rhythm Irregular Pulse Strength Normal Respiratory Rate 20 25 H Respiratory Effort / Characteristics Non-Labored Spontaneous Respiratory Depth Normal Respiratory Pattern Regular Blood Pressure 122/82 Blood Pressure Mean 95 Blood Pressure Position Semi-fowlers Pulse Oximetry 96 Oxygen Delivery Method Room Air Oxygen Flow Rate Sepsis Recent Fever Within 48 Hours No Sepsis New/Unexplained Change in Mental Status Yes Sepsis Action Taken by Nursing Physician Notified 02/09/25 10:40 02/09/25 10:51 02/09/25 10:54 Temperature Temperature Source Pulse Rate 139 H 157 H Pulse Rate from SpO2 Sensor Pulse Rhythm Pulse Strength Respiratory Rate 18 18 Respiratory Effort / Characteristics Respiratory Depth Respiratory Pattern Blood Pressure 107/77 69/52 L 99/77 L Blood Pressure Mean 82 57 84 Blood Pressure Position Pulse Oximetry 96 Oxygen Delivery Method Nasal Cannula Oxygen Flow Rate 6 Sepsis Recent Fever Within 48 Hours Sepsis New/Unexplained Change in Mental Status Sepsis Action Taken by Nursing 02/09/25 10:55 02/09/25 11:01 02/09/25 11:06 Temperature Temperature Source Pulse Rate 149 H Pulse Rate from SpO2 Sensor Pulse Rhythm Pulse Strength Respiratory Rate Respiratory Effort / Characteristics Respiratory Depth Respiratory Pattern Blood Pressure 115/80 115/81 Blood Pressure Mean 88 92 Blood Pressure Position Pulse Oximetry Oxygen Delivery Method Oxygen Flow Rate Sepsis Recent Fever Within 48 Hours Sepsis New/Unexplained Change in Mental Status Sepsis Action Taken by Nursing 02/09/25 11:06 02/09/25 11:09 02/09/25 11:15 Temperature Temperature Source Pulse Rate 155 H 144 H Pulse Rate from SpO2 Sensor Pulse Rhythm Pulse Strength Respiratory Rate 18 20 Respiratory Effort / Characteristics Respiratory Depth Respiratory Pattern Blood Pressure 110/90 117/75 121/87 Blood Pressure Mean 102 89 98 Blood Pressure Position Pulse Oximetry 91 100 Oxygen Delivery Method Nasal Cannula Nasal Cannula Oxygen Flow Rate 6 6 Sepsis Recent Fever Within 48 Hours Sepsis New/Unexplained Change in Mental Status Sepsis Action Taken by Nursing 02/09/25 11:21 02/09/25 11:27 02/09/25 11:31 Temperature Temperature Source Pulse Rate 166 H 97 H Pulse Rate from SpO2 Sensor Pulse Rhythm Pulse Strength Respiratory Rate 18 22 Respiratory Effort / Characteristics Respiratory Depth Respiratory Pattern Blood Pressure 82/64 L 111/68 Blood Pressure Mean 70 74 Blood Pressure Position Pulse Oximetry 97 98 Oxygen Delivery Method Nasal Cannula Nasal Cannula Oxygen Flow Rate 6 6 Sepsis Recent Fever Within 48 Hours Sepsis New/Unexplained Change in Mental Status Sepsis Action Taken by Nursing 02/09/25 11:36 02/09/25 11:36 02/09/25 11:42 Temperature Temperature Source Pulse Rate 95 H 98 H Pulse Rate from SpO2 Sensor 98 H 87 Pulse Rhythm Pulse Strength Respiratory Rate 24 24 Respiratory Effort / Characteristics Respiratory Depth Respiratory Pattern Blood Pressure 84/66 L 84/66 L 143/81 H Blood Pressure Mean 68 72 101 Blood Pressure Position Pulse Oximetry 99 97 Oxygen Delivery Method Nasal Cannula Nasal Cannula Oxygen Flow Rate 4 4 Sepsis Recent Fever Within 48 Hours Sepsis New/Unexplained Change in Mental Status Sepsis Action Taken by Nursing 02/09/25 11:51 02/09/25 11:56 02/09/25 12:00 Temperature Temperature Source Pulse Rate 102 H Pulse Rate from SpO2 Sensor 101 H Pulse Rhythm Pulse Strength Respiratory Rate 20 Respiratory Effort / Characteristics Respiratory Depth Respiratory Pattern Blood Pressure 116/84 125/76 Blood Pressure Mean 89 105 Blood Pressure Position Pulse Oximetry 98 Oxygen Delivery Method Room Air Oxygen Flow Rate Sepsis Recent Fever Within 48 Hours Sepsis New/Unexplained Change in Mental Status Sepsis Action Taken by Nursing 02/09/25 12:05 02/09/25 12:27 Temperature Temperature Source Pulse Rate Pulse Rate from SpO2 Sensor Pulse Rhythm Pulse Strength Respiratory Rate Respiratory Effort / Characteristics Respiratory Depth Respiratory Pattern Blood Pressure 128/100 145/106 H Blood Pressure Mean 104 122 Blood Pressure Position Pulse Oximetry Oxygen Delivery Method Oxygen Flow Rate Sepsis Recent Fever Within 48 Hours Sepsis New/Unexplained Change in Mental Status Sepsis Action Taken by Nursing Laboratory Data 02/09/25 10:36 02/09/25 14:17 Lab Results 02/09/25 02/09/25 02/09/25 Range/Units 10:36 10:47 12:12 WBC 10.77 (4.8-10.8) K/ul RBC 5.99 (4.70-6.10) M/uL Hgb 19.1 H (14.0-18.0) g/dl Hct 54.0 H (42.0-52.0) % MCV 90.2 (80.0-100.0) fL MCH 31.9 (25.0-34.0) pg MCHC 35.4 (32.0-36.0) g/dL RDW Std Deviation 49.4 H (36.4-46.3) fL RDW Coeff of Ceci 15.1 H (11.5-14.5) % Plt Count 169 (130-400) K/uL MPV 10.5 (9.4-12.4) fL Immature Gran % (Auto) 0.4 % Neut % (Auto) 91.1 % Lymph % (Auto) 2.6 % [place] % (Auto) 5.7 % Eos % (Auto) 0.0 % Baso % (Auto) 0.2 % Neut # (Auto) 9.82 H (1.40-6.50) K/uL Lymph # (Auto) 0.28 L (1.20-3.40) K/uL [place] # (Auto) 0.61 H (0.11-0.59) K/uL Eos # (Auto) 0.00 (0.00-0.50) K/uL Baso # (Auto) 0.02 (0.00-0.20) K/uL Immature Gran # (Auto) 0.04 (0.01-0.20) K/uL PT 14.1 H (9.0-12.0) Seconds INR 1.3 H (0.9-1.1) Sodium 140 TNP (136-145) mmol/L Potassium 2.7 L TNP (3.5-5.1) mmol/L Chloride 96 L 107 (98-107) mmol/L Carbon Dioxide 20 L 23 (21-32) mmol/L Anion Gap 24 H TNP (3-11) BUN 23 20 (6-23) mg/dl Creatinine 1.79 H 1.27 D (0.6-1.4) mg/dl Est Cr Clr Drug Dosing Not Reportable 47.7 eGFR 39.03 58.92 BUN/Creatinine Ratio 12.8 15.7 (10-20) Glucose 139 H 136 H (70-99(Fasting)) mg/dl Lactate 4.1 H* 2.9 H* (0.4-2.0) mmol/L Calcium 10.0 7.5 L D (8.6-10.3) mg/dl Magnesium 2.4 (1.7-2.4) mg/dl Total Bilirubin 0.8 (0.2-1.0) mg/dl AST 48 H (13-39) U/L ALT 18 (7-52) U/L Alkaline Phosphatase 162 H (34-104) U/L Total Creatine Kinase 2343 H (30-223) U/L Troponin I High Sens 284.2 H* 210.1 H* D (0-20) pg/ml Total Protein 7.5 (6.0-8.3) gm/dl Albumin 4.3 (3.4-5.0) gm/dl Globulin 3.2 (2.5-4.0) gm/dl Albumin/Globulin Ratio 1.3 (0.9-2) Procalcitonin 0.44 (0-0.5) ng/ml TSH 0.436 (0.300-4.500) uIu/ml Administered Medications Sodium Chloride (Nss) 1,000 mls @ 125 mls/hr IV .Q8H ADRIENNE Stop: 02/12/25 14:14 Last Admin: 02/09/25 14:21 Dose: 125 mls/hr Documented By: JERMAIN Potassium Chloride (K Dustin / Wtr) 10 meq in 100 mls @ 100 mls/hr IV Q1H ADRIENNE Stop: 02/09/25 18:59 Last Admin: 02/09/25 15:48 Dose: 100 mls/hr Documented By: JERMAIN Magnesium Sulfate/Dextrose (Magnesium Sulfate / D5w) 1 gm in 100 mls @ 50 mls/hr IV Q2H ADRIENNE Stop: 02/09/25 18:59 Last Admin: 02/09/25 15:00 Dose: 50 mls/hr Documented By: JERMAIN Discontinued Medications Sodium Chloride (Nss) 1,000 mls @ 999 mls/hr IV .Q1H1M ADRIENNE Stop: 02/09/25 11:45 Last Infusion: 02/09/25 13:43 Dose: Infused Documented By: Admin: 02/09/25 11:22 Dose: 999 mls/hr Documented By: RODRÍGUEZ Potassium Chloride (K Dustin / Wtr) 10 meq in 100 mls @ 100 mls/hr IV Q1H [facility] Stop: 02/09/25 12:44 Last Admin: 02/09/25 14:02 Dose: Not Given Documented By: Infusion: 02/09/25 13:43 Dose: Infused Documented By: Admin: 02/09/25 10:46 Dose: 100 mls/hr Documented By: RODRÍGUEZ Magnesium Sulfate/Dextrose (Magnesium Sulfate / D5w) 1 gm in 100 mls @ 400 mls/hr IV Q15M ADRIENNE Stop: 02/09/25 10:59 Last Infusion: 02/09/25 13:43 Dose: Infused Documented By: Admin: 02/09/25 10:45 Dose: 400 mls/hr Documented By: RODRÍGUEZ Magnesium Sulfate/Dextrose (Magnesium Sulfate / D5w) 1 gm in 100 mls @ 400 mls/hr IV Q15M ADRIENNE Stop: 02/09/25 11:28 Last Infusion: 02/09/25 13:43 Dose: Infused Documented By: Admin: 02/09/25 11:18 Dose: 400 mls/hr Documented By: RODRÍGUEZ Sodium Chloride (Nss) 1,000 mls @ 999 mls/hr IV .Q1H1M ONE Stop: 02/09/25 12:18 Last Infusion: 02/09/25 13:43 Dose: Infused Documented By: Admin: 02/09/25 11:22 Dose: 999 mls/hr Documented By: RODRÍGUEZ Sodium Chloride (Nss) 500 mls @ 125 mls/hr IV .Q4H ADRIENNE Stop: 02/09/25 16:44 Last Admin: 02/09/25 14:02 Dose: Not Given Documented By: JERMAIN Piperacillin Sod/Tazobactam Sod (Zosyn) 4.5 gm in 100 mls @ 200 mls/hr IV ONE ONE; Protocol Stop: 02/09/25 15:29 Last Admin: 02/09/25 15:48 Dose: 200 mls/hr Documented By: JERMAIN Magnesium Sulfate/Dextrose (Magnesium Sulfate 1gm / D5w Bag) Confirm Administered Dose 1 gm IV .[facility] ONE Stop: 02/09/25 10:43 Last Admin: 02/09/25 13:28 Dose: Not Given Documented By: RODRÍGUEZ Metoprolol Tartrate (Metoprolol Tartrate 1 Mg/Ml Vial) Confirm Administered Dose 5 mg IV .[facility] ONE Stop: 02/09/25 11:17 Last Admin: 02/09/25 13:29 Dose: Not Given Documented By: RODRÍGUEZ Metoprolol Tartrate (Metoprolol Tartrate 1 Mg/Ml Vial) 2.5 mg IV NOW STA Stop: 02/09/25 11:17 Last Admin: 02/09/25 11:18 Dose: 2.5 mg Documented By: RODRÍGUEZ Metoprolol Tartrate (Metoprolol Tartrate 1 Mg/Ml Vial) 2.5 mg IV NOW STA Stop: 02/09/25 11:26 Last Admin: 02/09/25 11:25 Dose: 2.5 mg Documented By: RODRÍGUEZ Metoprolol Tartrate (Metoprolol Tartrate 1 Mg/Ml Vial) 2.5 mg IV NOW STA Stop: 02/09/25 12:47 Last Admin: 02/09/25 14:24 Dose: 2.5 mg Documented By: JERMAIN Miscellaneous (Rapid Sequence Induction Bag) Confirm Administered Dose 1 each N/A .[facility] ONE Stop: 02/09/25 10:37 Last Admin: 02/09/25 13:18 Dose: Not Given Documented By: RODRÍGUEZ Ondansetron HCl (Ondansetron Inj 2 Mg/Ml 2 Ml Vial) 4 mg IV NOW STA Stop: 02/09/25 10:48 Last Admin: 02/09/25 10:50 Dose: 4 mg Documented By: RODRÍGUEZ Ondansetron HCl (Ondansetron Inj 2 Mg/Ml 2 Ml Vial) 4 mg IV NOW STA Stop: 02/09/25 11:33 Last Admin: 02/09/25 11:44 Dose: 4 mg Documented By: RODRÍGUEZ Potassium Chloride (Potassium Chloride 10 Meq / 100ml Wtr) Confirm Administered Dose 20 meq IV .[facility] ONE Stop: 02/09/25 10:41 Last Admin: 02/09/25 13:28 Dose: Not Given Documented By: RODRÍGUEZ Potassium Chloride (Potassium Chloride Crtab 20 Meq Tabcr) 40 meq PO NOW STA Stop: 02/09/25 13:55 Last Admin: 02/09/25 14:43 Dose: Not Given Documented By: ES Sodium Bicarbonate (Sodium Bicarb 8.4% Inj 50 Meq/50 Ml Syr) 50 meq IV NOW STA Stop: 02/09/25 10:56 Last Admin: 02/09/25 10:58 Dose: 50 meq Documented By: RODRÍGUEZ Imaging Data Radiologist's Impression: Abdomen/Pelvis CT 02/09/25 10:[address] WITHOUT CONTRAST HISTORY: fall, ams, nausea TECHNIQUE: Multiaxial CT images of the abdomen and pelvis were performed without contrast. A dose lowering technique was utilized adhering to the principles of ALARA. COMPARISON STUDY: 10/24/2017 FINDINGS: ABDOMEN: Stable dilated gallbladder. Liver, spleen, pancreas, adrenal glands, and kidneys show no evidence of acute injury on this noncontrast exam. There are a few small right renal cysts. There are a few small renal calculi with no hydronephrosis or ureteral calculi. There are scattered atherosclerotic calcifications. No abdominal aortic aneurysm. There is wall thickening at the proximal duodenum which could represent duodenitis or ulcer. Pelvis: There is a [place] ventral hernia containing multiple nonobstructed bowel loops. There is a right anterior lateral abdominal wall hernia containing multiple nonobstructed small bowel loops. No bowel inflammation or obstruction seen. Urinary bladder is prominently distended. Prostate is enlarged. No free fluid or free air. No soft tissue hematoma. Osseous structures: There is osteopenia. There is progressive lumbar degenerative disc disease. There is an acute mild compression fracture at the T12 vertebral body. No other acute fractures seen at the visualized osseous structures. IMPRESSION: 1. Mild acute vertebral body compression fracture at T12. 2. No other acute injury seen at the abdomen or pelvis. 3. Duodenitis versus duodenal ulcer versus artifact from nondistention. 4. Otherwise as described. ACT 112: Negative or not required by law. The above report was generated using voice recognition software. It may contain grammatical, syntax or spelling errors. Electronically signed by: Charlie Lees M.D. 02/09/2025 12:[address] 02/09/25 10:43 CT SCAN OF THE CERVICAL SPINE CLINICAL HISTORY: Fall. COMPARISON STUDY: CTA of the neck February 11, 2020. TECHNIQUE: CT scan of the cervical spine is performed from the skull base to the upper thoracic spine. Images are reviewed in the axial, sagittal, and coronal planes. IV contrast was not administered for this examination. A dose lowering technique was utilized adhering to the principles of ALARA. FINDINGS: Skeletal structures: There is no evidence of fracture or subluxation involving the cervical spine. Vertebral body height and alignment are maintained. The odontoid process and lateral masses are intact. The atlantoaxial articulation is preserved. The spinous processes appear intact. There is moderate multilevel disc space narrowing and facet arthrosis within the cervical spine. Soft tissues: The prevertebral and paraspinous soft tissues are within normal limits. Calvarium: The visualized calvarium at the skull base appears intact. Brain parenchyma: Partially visualized brain parenchyma at the skull base is within normal limits. Lung apices: Clear as visualized. IMPRESSION: No acute cervical spine fracture or subluxation. ACT 112: Negative or not required by law. Electronically signed by: Shon Palencia M.D. 02/09/2025 12:[address] 02/09/25 10:43 CT OF THE CHEST WITHOUT IV CONTRAST CLINICAL HISTORY: Fall. Altered mental status. COMPARISON STUDY: Chest radiograph September 20, 2024. CT DOSE: 3274.18 mGy.cm TECHNIQUE: Axial images of the chest were obtained without IV contrast. Images were reviewed in the axial, sagittal, and coronal planes. IV contrast was not administered for this examination. Automated exposure control was utilized for the study. A dose lowering technique was utilized adhering to the principles of ALARA. FINDINGS: Thoracic aorta is suboptimally assessed on unenhanced exam but no mediastinal hematoma is present. There is aneurysmal dilatation of the ascending aorta measuring 4.7 cm. There is moderate aortic valvular calcification. Moderate coronary artery calcification is noted. The heart is mildly enlarged. There is no pneumothorax or pleural effusion. No pulmonary contusion is present. No acute rib fractures are present. There is a mild compression fracture of the superior endplate of T12 with 30% loss of vertebral body height centrally. There is no retropulsion. There is no extension into the posterior elements. There is moderate circumferential wall thickening of the proximal to mid esophagus. There is also wall thickening of the distal esophagus with stranding. IMPRESSION: 1. Acute T12 compression fracture with 30% loss of vertebral body height centrally. No retropulsion. 2. No additional acute traumatic findings within the chest. 3. Proximal and distal esophageal wall thickening. This is nonspecific but favors esophagitis. 4. Aneurysmal dilatation of the ascending aorta measuring up to 4.7 cm. ACT 112: Negative or not required by law. Electronically signed by: Shon Palencia M.D. 02/09/2025 12:46 PM Chest X-Ray 02/09/25 10:43 XR chest 1V portable CLINICAL HISTORY: weakness COMPARISON STUDY: 09/20/2024 FINDINGS: Stable mild cardiomegaly without pulmonary vascular congestion. No effusion, consolidation, or pneumothorax. IMPRESSION: No acute findings. ACT 112: Negative or not required by law. Electronically signed by: Charlie Lees M.D. 02/09/2025 12:[address] 02/09/25 10:43 CT SCAN OF THE BRAIN WITHOUT IV CONTRAST CLINICAL HISTORY: Fall. Altered mental status. COMPARISON STUDY: MRI of the brain February 11, 2020. Head CT September 20, 2024. TECHNIQUE: Unenhanced axial CT scan of the brain was performed from the vertex to the skull base. A dose lowering technique was utilized adhering to the principles of ALARA. FINDINGS: Brain parenchyma: No acute intracranial hemorrhage, midline shift or mass effect is present. Torres-white matter differentiation is preserved. There are no extra- axial fluid collections. There are no findings to suggest acute dural sinus thrombosis or acute territorial infarct. There is mild atrophy and small vessel disease. Ventricles, sulci, cisterns: There is no hydrocephalus. The basal cisterns are patent. Calvarium: No calvarial fractures. Sinuses and mastoids: The visualized paranasal sinuses are clear. The mastoid air cells are well pneumatized. Orbits: The bony orbits are grossly intact. IMPRESSION: 1. No acute intracranial findings. 2. No calvarial fractures. ACT 112: Negative or not required by law. Electronically signed by: Shon Palencia M.D. 02/09/2025 12:35 PM Knee X-Ray 02/09/25 10:43 XR knee LT 1 or 2V routine CLINICAL HISTORY: fall COMPARISON: None FINDINGS: There is a trace joint effusion. No fracture or dislocation. There is mild osteoarthritis. IMPRESSION: No fracture seen. ACT 112: Negative or not required by law. Electronically signed by: Charlie Lees M.D. 02/09/2025 12:44 PM Discharge Plan Visit Data Chief Complaint: Trauma ED Provider: Lee Kaur Discharge Problem: Rhabdomyolysis, Fall, Acute kidney injury, Hypothermia, Hypokalemia, Hypotension, Atrial fibrillation with rapid ventricular response Patient Disposition: Admitted As Inpatient Condition: Critical Discharge Instructions Interventions: ED Discharge Assessment Last Done: 02/09/25 13:30 Discharge Problem: Rhabdomyolysis Qualifiers: Encounter type: initial encounter Fall Qualifiers: Encounter type: initial encounter Qualified Code(s): W19.XXXA - Unspecified fall, initial encounter Hypothermia Qualifiers: Encounter type: initial encounter Qualified Code(s): T68.XXXA - Hypothermia, initial encounter
--- NOTE | 2025-02-09 12:07 | Cardiology Consultation ---
Date of Consultation February 09, 2025 Assessment & Plan (1) Volume depletion: (2) Hypotension: (3) Hypokalemia: (4) Atrial fibrillation with rapid ventricular response: * Presumed sepsis, with noted poor oral intake. * Electrolyte replacement and fluid resuscitation in process. Patient is 3 peripheral IV access sites. * Atrial fibrillation is a new diagnosis. Emergent cardioversion in the setting of tachycardia and hypotension attempted x 3 and was unsuccessful. Subsequently converted to sinus rhythm after administration of IV metoprolol 2.5 mg over 5 minutes x 2 doses. * Hold off on systemic anticoagulation for now pending further workup to include noncontrast CT of the head, abdomen chest and pelvis * Repeat EKG now that patient is in sinus rhythm * Patient seen with Dr Kaur of emergency medicine. * Case discussed with Dr Servin of the [facility] and Dr Pastor of critical care medicine for the purpose of coordination of care. * I spent a total of 90 minutes on the date of service in preparation, delivery, and documentation of the care provided to this patient, excluding any time spent in the performance of separately billed services from 11 am to 12:30 pm. History of Present Illness History of Present Illness Dandre Mott is a 74 year old male seen in emergent cardiology consultation per the request of Dr Kaur for the evaluation of atrial fibrillation with rapid ventricular response and hypotension. Patient seen in the emergency department , [address] History provided by the patient's brother , Yamil, who was at the bedside. The patient has reportedly been feeling ill at home for the last week with nauseousness and knee pain. It is unclear at present whether or not it is his right knee or left knee that has been bothering him, but he reportedly has a meniscus problem that has been impacting his walking. He has had decreased appetite due to generalized nauseousness. No reported diarrhea. Today his brother spoke to him on the phone after the patient had fallen down and could not get up. He was on the floor for about an hour. His brother was at work and called 911 and then left to go assist the patient. On arrival to the emergency department the patient was found to be hypothermic, hypotensive with systolic blood pressures in the 80s to low 100s and was in atrial fibrillation with rapid ventricular response, ventricular rates as high as the 160s to 170s. Atrial fibrillation is a new diagnosis for him. Stat lab work was notable for hypokalemia, potassium 2.7, acute kidney injury with creatinine of 1.79 having been 0.75 in September,, hemoglobin of 19 and serum lactate level 4.1. Fluid and electrolyte resuscitation were initiated with doses of IV potassium and IV magnesium receiving fluids at 500 mL/h transiently. Due to tachycardia and hypotension emergent direct-current cardioversion have been attempted x 2 prior to my arrival with doses of 200 J and 200 J. Cardioversion was unsuccessful. Medication therapy of his tachycardia was limited due to hypokalemia and low blood pressure. Upon my arrival a third attempt at cardioversion was performed with the patient receiving a single dose of 300 J of biphasic energy x 1 having replaced the defibrillator pads in the anterior posterior position. Cardioversion was unsuccessful. The patient then received a dose of 2.5 mg of IV metoprolol over 5 minutes with subsequent improvement in his heart rates down to 90 to 110 bpm with rhythm having converted to a sinus rhythm with frequent premature atrial contractions. An additional dose of metoprolol 2.5 mg IV was administered over 5 minutes with ongoing sinus rhythm in the range of 90 to 110 bpm. Systolic blood pressure ranged from 84 mmHg to a reading in the 140s, with most of the systolic blood pressures just over 100 mmHg. The patient recognized his brother and was mentating relatively well although not able to provide detailed history. He complained of being cold and nauseous. Warm blankets were placed and he received IV Zofran. A limited bedside echocardiogram was performed by the undersigned revealing no evidence of pericardial effusion. Hyperdynamic biventricular systolic function was noted. The study was not sufficient for reassessment of the patient's aortic stenosis. 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 2.Partial transverse colectomy, small bowel resection, 10/24/2017 with drainage of multiple abscesses and creation of colostomy and mucous fistula, with subsequent colostomy reversal 3.Hypertension 4.Dyslipidemia 5.GERD 6.IBS 7.Vertigo 8.Cervical degenerative disc disease 9.Echocardiogram performed 09/20/2024: Mild concentric left ventricular perjury, LVEF 60-65, mild aortic valve stenosis, moderate mitral annular calcification, mild aortic root enlargement, 4.1 cm, mild ascending aorta enlargement 4.1 cm Social History: 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 , 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 , lives alone Allergies Allergy/AdvReac Type Severity Reaction Status Date / Time shrimp AdvReac Unknown GI SYMPTOMS Verified 02/11/20 06:09 Home Medications Medication Instructions Recorded Confirmed Type baclofen 10 mg tablet 10 mg PO TID Muscle Spasm/Neck Pain 02/11/20 02/09/25 History dicyclomine 20 mg tablet 20 mg PO QID PRN Abdominal Pain 02/11/20 02/09/25 History ketoconazole 2 % topical cream 1 applic topical UD 02/11/20 02/09/25 History atorvastatin 40 mg tablet 40 mg PO QAM 09/20/24 02/09/25 History mdbhnpidfw-wcscuhjpurmcn-ngpclkbm 1 tab PO Q6H PRN Abdominal 09/20/24 02/09/25 History 50 mg-325 mg-40 mg tablet Pain/Neck Pain lisinopril 5 mg tablet 5 mg PO HS 09/20/24 02/09/25 History carvedilol 3.125 mg tablet 3.125 mg PO UD 02/09/25 02/09/25 History Patient History Social History Smoking Status: Never smoker Second Hand Exposure: No; Do You Dip or Chew Tobacco: No; Hx Alcohol Use: No Hx Substance Use: No Preferred Language: Tunisian Communication Ability: Effective 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 Constitutional: + acute distress and + ill appearing Eyes: PERRL, conjunctivae normal, anicteric sclerae Respiratory: normal respiratory effort, lungs clear to auscultation Cardiovascular: Rate/Rhythm: + tachycardic Heart Sounds: normal S1, normal S2 and + murmur (1/6 SM ) Vessels: no JVD Gastrointestinal (Abdomen): incisional hernia, well healed incisions, abdomen soft on palpation without tenderness Skin: no rashes, warm and dry Neurologic: tremulous, answers questions appropriately, no focal deficits Results & Data Vital Signs (Past 12 Hours) Vital Signs Pulse 02/09/25 11:06 149 H 02/09/25 10:27 162 H Laboratory Results Cardiac Enzymes 02/09/25 Range/Units 10:36 AST 48 H (13-39) U/L Troponin I High Sens 284.2 H* (0-20) pg/ml Coagulation 02/09/25 Range/Units 10:36 PT 14.1 H (9.0-12.0) Seconds CBC 02/09/25 Range/Units 10:36 WBC 10.77 (4.8-10.8) K/ul RBC 5.99 (4.70-6.10) M/uL Hgb 19.1 H (14.0-18.0) g/dl Hct 54.0 H (42.0-52.0) % Plt Count 169 (130-400) K/uL Neut # (Auto) 9.82 H (1.40-6.50) K/uL Lymph # (Auto) 0.28 L (1.20-3.40) K/uL Rolette # (Auto) 0.61 H (0.11-0.59) K/uL Eos # (Auto) 0.00 (0.00-0.50) K/uL Baso # (Auto) 0.02 (0.00-0.20) K/uL Comprehensive Metabolic Panel 02/09/25 Range/Units 10:36 Sodium 140 (136-145) mmol/L Potassium 2.7 L (3.5-5.1) mmol/L Chloride 96 L (98-107) mmol/L Carbon Dioxide 20 L (21-32) mmol/L BUN 23 (6-23) mg/dl Creatinine 1.79 H (0.6-1.4) mg/dl Glucose 139 H (70-99(Fasting)) mg/dl Calcium 10.0 (8.6-10.3) mg/dl AST 48 H (13-39) U/L ALT 18 (7-52) U/L Alkaline Phosphatase 162 H (34-104) U/L Total Protein 7.5 (6.0-8.3) gm/dl Albumin 4.3 (3.4-5.0) gm/dl Intake and Output 02/08/25 02/09/2502/09/25 22:59 06:59 14:59 Other: Weight 75.5 kg [facility] Weight 02/10/25 06:59 Weight 75.5 kg Lactate 4.1 --> 2.9 mmol / l. Initial EKG revealed atrial fibrillation with rapid ventricular response with rate in the 160s to 170s, very minimal rate related ST depression noted in the precordial leads.
--- NOTE | 2025-02-09 12:13 | History & Physical Report ---
Date of Service February 09, 2025 Assessment & Plan (1) Atrial fibrillation with rapid ventricular response: Plan: Mr. Mott is a 74y/o M with PMHx significant for HLD, HTN, left vertebral artery stenosis, first-degree AV block, GERD, IBS with diarrhea, cervical DDD, chronic neck pain, history of migraines, acute vestibular syndrome, history of diverticular abscess and perforation s/p partial colectomy and subsequent reversal and FILIBERTO who presented to the ED via EMS after sustaining a fall at home and was found to be in unstable AFib with RVR. Underwent emergent cardioversion 2/2 hypotension x 3 in the ED. Cardioversion was unsuccessful. Patient then received 2.5mg IV Lopressor over 5 minutes with subsequent improvement in his HR down to the 90s-110s with conversion to sinus rhythm with PACs. An additional dose of 2.5mg IV Lopressor was administered over 5 minutes with minimal change in HR however his BP stabilized. Initial HS troponin 284.2, repeat HS troponin 210.1; likely demand ischemia 2/2 tachycardia. Follow repeat HS troponin Q4H for now. HR in the low 100s at the time of admission. Hold home antihypertensive. Daily EKG x 2. Continue close telemetry monitoring. (2) Hypothermia: (3) Lactic acidosis: (4) Acute kidney injury: Plan: Presumed sepsis given lactic acidosis, hypothermia and YOU. Notably hypothermic with Lynn catheter temperature probe reading of 35oC. at time of admission. Betzaida hugger applied. Lab work reviewed. No leukocytosis. Procalcitonin negative. Respiratory BioFire panel negative. UA without evidence of overt infection. Elevated Hgb likely 2/2 dehydration. S/p 2L NSS prior to our evaluation in the ED. Will give an additional 500cc NSS for now. Follow repeat BMP and lactic acid level. Follow blood cultures. Empirically cover with IV Zosyn for now. Check nasal MRSA. (5) Fall: (6) Thoracic vertebral fracture: Plan: Reviewed trauma imaging. No evidence of acute intracranial findings on head CT. Cervical spine CT unremarkable. Chest CT/CTAP noting an acute vertebral body compression fracture at T12. Appreciate orthopedic spinal surgery consult. L knee XR with no evidence of fracture. Trace joint effusion, mild osteoarthritis. Patient with c/o R knee pain at the time of our conversation. Check portable R knee XR. 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 Initial CK 2343. Follow repeat CK in AM s/p IVF resuscitation. (8) Aneurysmal dilatation: Plan: CTAP: Aneurysmal dilatation of the ascending aorta measuring up to 4.7cm. Closely monitor BP. (9) Esophagitis: Plan: CTAP: Proximal and distal esophageal wall thickening. This is nonspecific but favors esophagitis. IV PPI BID ordered for possible esophagitis. May be attributing to poor oral intake. Appreciate GI consult for further evaluation. (10) Hypokalemia: Plan: Notably hypokalemic with K+ 2.7 on admission. Had received 2 bags of IV KCl prior to our evaluation in the ED. Magnesium WNL. Will give an additional 40mEq po KCl now. Follow repeat BMP and replete PRN. Other Chronic Medical Conditions: HLD - Continue statin as able/tolerated. Check AM fasting lipid panel. DVT Prophylaxis: SCDs/TEDs for now per recommendation of cardiology. Code Status: FULL CODE - As per discussion with patient's brother, Yamil. PCP: Frank Crowder MD Disposition: Admit to ICU for further inpatient evaluation and management. Patient seen in collaboration with Dr. Fermin. Please see addendum. I spent a total of 76 minutes coordinating, documenting, and providing care for this patient excluding time spent in the performance of separately billed services or time spent by another provider/QHP. This included personally reviewing all current laboratories and imaging studies, medical reconciliation, outpatient chart review and discussion with specialists. This chart was completed in part utilizing Speech Voice Recognition Software. Grammatical errors, random word insertions, pronoun errors, and incomplete sentences are an occasional consequence of this system due to software limitations, ambient noise, and hardware issues. Any formal questions or concerns about the content, text, or information contained within the body of this dictation should be directly addressed to the provider for clarification. History of Present Illness Chief Complaint: Found on floor at home s/p fall Primary Care Provider: Frank Crowder MD Mr. Mott is a 74y/o M with PMHx significant for HLD, HTN, left vertebral artery stenosis, first-degree AV block, GERD, IBS with diarrhea, cervical DDD, chronic neck pain, history of migraines, acute vestibular syndrome, history of diverticular abscess and perforation s/p partial colectomy and subsequent reversal and FILIBERTO who presented to the ED via EMS after sustaining a fall at home. Majority of history obtained from the patient's brother, Yamil, over the phone. Patient A&O to person and place but unable to provide much additional history. Patient seen at bedside with Dr. Fermin. Per Yamil, their cousin recently last week whom he was quite close to. Reportedly having a hard time with anxiety and depression since her . Had mentioned last week that he was having issues with his breathing but this wa s never formally evaluated. He called Yamil earlier this morning after he had fallen out of bed, which the patient does recall. He was lying down on the ground for about an hour as he was unable to get up off of the floor himself. He has been complaining of a poor appetite due to nausea over the past week. He normally ambulates with the assistance of a cane. He has been taking his home medications as prescribed per Yamil. Patient lives at home alone. Also has been experiencing some bilateral knee pain which has been impacting his ability to walk well. Patient found to be in unstable AFib with RVR (HR in the 160s-170s) in the ED. Dr. Fermin and I discussed his case directly with Dr. Walter over the phone. Underwent emergent cardioversion 2/2 hypotension x 3 in the ED. Cardioversion was unsuccessful. Patient then received 2.5mg IV Lopressor over 5 minutes with subsequent improvement in his HR down to the 90s-110s with conversion to sinus rhythm with PACs. An additional dose of 2.5mg IV Lopressor was administered over 5 minutes with minimal change in HR however his BP stabilized. Notably hypothermic with Lynn catheter temperature probe reading of 35oC. Betzaida hugger applied. Lab work reviewed. No leukocytosis. Elevated Hgb likely 2/2 dehydration. S/p 2L NSS prior to our evaluation in the ED. Notably hypokalemic. Had received 2 bags of IV KCl prior to our evaluation in the ED. Lactic acidosis of 4.1, procalcitonin negative. TSH WNL. Initial HS troponin 284.2, repeat HS troponin 210.1. Respiratory BioFire panel negative. UA without evidence of overt infection. Blood cultures ordered. Allergies Allergy/AdvReac Type Severity Reaction Status Date / Time shrimp AdvReac Unknown GI SYMPTOMS Verified 02/11/20 06:09 Home Medications Medication Instructions Recorded Confirmed Type baclofen 10 mg tablet 10 mg PO TID PRN Muscle Spasm/Neck 02/11/20 02/09/25 History Pain dicyclomine 20 mg tablet 20 mg PO QID PRN Abdominal Pain 02/11/20 02/09/25 History atorvastatin 40 mg tablet 40 mg PO QAM 09/20/24 02/09/25 History zaxxdxnwzk-jnafwpyaoakfq-xuhjcdhe 1 tab PO Q6H PRN Abdominal 09/20/24 02/09/25 History 50 mg-325 mg-40 mg tablet Pain/Neck Pain lisinopril 5 mg tablet 5 mg PO QAM 09/20/24 02/09/25 History Past Med/Surg History Problem List (Updated 02/09/25 @ 15:02 by Alia Christian PA-C) Esophagitis Aneurysmal dilatation Rhabdomyolysis Thoracic vertebral fracture Fall Acute kidney injury Lactic acidosis Hypothermia Hypokalemia Hypotension Atrial fibrillation with rapid ventricular response Volume depletion Thrombocytopenia (Acute) Elevated troponin (Acute) Weakness (Acute) Tachycardia Bilateral leg weakness Elevated troponin Unwitnessed fall Acute vestibular syndrome Stroke-like symptoms History of colostomy reversal Hypomagnesemia (Acute) HTN (hypertension) (Chronic) Slurred speech (Acute) Ataxia (Acute) Social History Smoking Status: Never smoker Second Hand Exposure: No; Do You Dip or Chew Tobacco: No; Hx Alcohol Use: No Hx Substance Use: No Preferred Language: Yemeni Communication Ability: Effective Ride Mechanic Required: No Beliefs That Will Affect Care: None Current Living Situation: Alone Feels Safe at Home: Yes Assistive Devices: Cane Review of Systems Review of Systems: At least ten systems reviewed and negative, except as noted in the HPI. Physical Exam Physical Exam: Please refer to Dr. Fermin's addendum for physical examination findings. Results & Data Results & Data Vital Signs (Past 12 Hours) Vital Signs Pulse 02/09/25 11:06 149 H 02/09/25 10:27 162 H Laboratory Results Short CBC 02/09/25 Range/Units 10:36 WBC 10.77 (4.8-10.8) K/ul Hgb 19.1 H (14.0-18.0) g/dl Hct 54.0 H (42.0-52.0) % Plt Count 169 (130-400) K/uL BMP 02/09/25 02/09/25 10:36 12:12 Sodium 140 TNP Potassium 2.7 L TNP Chloride 96 L 107 Carbon Dioxide 20 L 23 BUN 23 20 Creatinine 1.79 H 1.27 D Glucose 139 H 136 H Calcium 10.0 7.5 L D Cardiac Enzymes 02/09/25 Range/Units 10:36 Total Creatine Kinase 2343 H (30-223) U/L Liver Function 02/09/25 Range/Units 10:36 Total Bilirubin 0.8 (0.2-1.0) mg/dl AST 48 H (13-39) U/L ALT 18 (7-52) U/L Alkaline Phosphatase 162 H (34-104) U/L Albumin 4.3 (3.4-5.0) gm/dl Diagnostic Findings Abdomen/Pelvis CT 02/09/25 10:[address] WITHOUT CONTRAST HISTORY: fall, ams, nausea TECHNIQUE: Multiaxial CT images of the abdomen and pelvis were performed without contrast. A dose lowering technique was utilized adhering to the principles of ALARA. COMPARISON STUDY: 10/24/2017 FINDINGS: ABDOMEN: Stable dilated gallbladder. Liver, spleen, pancreas, adrenal glands, and kidneys show no evidence of acute injury on this noncontrast exam. There are a few small right renal cysts. There are a few small renal calculi with no hydr onephrosis or ureteral calculi. There are scattered atherosclerotic calcifications. No abdominal aortic aneurysm. There is wall thickening at the proximal duodenum which could represent duodenitis or ulcer. Pelvis: There is a wid[place] ventral hernia containing multiple nonobstructed bowel loops. There is a right anterior lateral abdominal wall hernia containing multiple nonobstructed small bowel loops. No bowel inflammation or obstruction seen. Urinary bladder is prominently distended. Prostate is enlarged. No free fluid or free air. No soft tissue hematoma. Osseous structures: There is osteopenia. There is progressive lumbar degenerative disc disease. There is an acute mild compression fracture at the T12 vertebral body. No other acute fractures seen at the visualized osseous structures. IMPRESSION: 1. Mild acute vertebral body compression fracture at T12. 2. No other acute injury seen at the abdomen or pelvis. 3. Duodenitis versus duodenal ulcer versus artifact from nondistention. 4. Otherwise as described. ACT 112: Negative or not required by law. The above report was generated using voice recognition software. It may contain grammatical, syntax or spelling errors. Electronically signed by: Charlie Lees M.D. 02/09/2025 12:[address] 02/09/25 10:43 CT SCAN OF THE CERVICAL SPINE CLINICAL HISTORY: Fall. COMPARISON STUDY: CTA of the neck February 11, 2020. TECHNIQUE: CT scan of the cervical spine is performed from the skull base to the upper thoracic spine. Images are reviewed in the axial, sagittal, and coronal planes. IV contrast was not administered for this examination. A dose lowering technique was utilized adhering to the principles of ALARA. FINDINGS: Skeletal structures: There is no evidence of fracture or subluxation involving the cervical spine. Vertebral body height and alignment are maintained. The odontoid process and lateral masses are intact. The atlantoaxial articulation is preserved. The spinous processes appear intact. There is moderate multilevel disc space narrowing and facet arthrosis within the cervical spine. Soft tissues: The prevertebral and paraspinous soft tissues are within normal limits. Calvarium: The visualized calvarium at the skull base appears intact. Brain parenchyma: Partially visualized brain parenchyma at the skull base is within normal limits. Lung apices: Clear as visualized. IMPRESSION: No acute cervical spine fracture or subluxation. ACT 112: Negative or not required by law. Electronically signed by: Shon Palencia M.D. 02/09/2025 12:38 PM Chest X-Ray 02/09/25 10:43 XR chest 1V portable CLINICAL HISTORY: weakness COMPARISON STUDY: 09/20/2024 FINDINGS: Stable mild cardiomegaly without pulmonary vascular congestion. No effusion, consolidation, or pneumothorax. IMPRESSION: No acute findings. ACT 112: Negative or not required by law. Electronically signed by: Charlie Lees M.D. 02/09/2025 12:[address] 02/09/25 10:43 CT SCAN OF THE BRAIN WITHOUT IV CONTRAST CLINICAL HISTORY: Fall. Altered mental status. COMPARISON STUDY: MRI of the brain February 11, 2020. Head CT September 20, 2024. TECHNIQUE: Unenhanced axial CT scan of the brain was performed from the vertex to the skull base. A dose lowering technique was utilized adhering to the principles of ALARA. FINDINGS: Brain parenchyma: No acute intracranial hemorrhage, midline shift or mass effect is present. Torres-white matter differentiation is preserved. There are no extra- axial fluid collections. There are no findings to suggest acute dural sinus thrombosis or acute territorial infarct. There is mild atrophy and small vessel disease. Ventricles, sulci, cisterns: There is no hydrocephalus. The basal cisterns are patent. Calvarium: No calvarial fractures. Sinuses and mastoids: The visualized paranasal sinuses are clear. The mastoid air cells are well pneumatized. Orbits: The bony orbits are grossly intact. IMPRESSION: 1. No acute intracranial findings. 2. No calvarial fractures. ACT 112: Negative or not required by law. Electronically signed by: Shon Palencia M.D. 02/09/2025 12:35 PM Knee X-Ray 02/09/25 10:43 XR knee LT 1 or 2V routine CLINICAL HISTORY: fall COMPARISON: None FINDINGS: There is a trace joint effusion. No fracture or dislocation. There is mild osteoarthritis. IMPRESSION: No fracture seen. ACT 112: Negative or not required by law. Electronically signed by: Charlie Lees M.D. 02/09/2025 12:44 PM Medications Administered FULL CODE Code Status & VTE Plan Code Status FULL CODE Supervising Physician Co-Signing Physician Notes Patient seen and examined Brought in after a fall at home. Found to be in AFib w/RVR and hypotensive. Also had hypokalemia, elevated lactate Required cardioversion and total of lopressor IV 5mg to stabilize Currently he is alert and oriented to person and place only. Reports nausea and right knee pain Poor historian. On exam, General: Ill appearing elderly man on betzaida hugger Eyes: Conjunctivae normal, not pale, anicteric sclerae, EOM intact bilaterally ENMT: External ear and nose normal, oropharynx normal Respiratory: Normal respiratory effort, no respiratory distress, lungs clear to auscultation Cardiovascular: +tachycardic, S1 S2 Gastrointestinal (Abdomen): Abdomen is not distended, soft, non-tender to palpation, no guarding, normal bowel sounds Musculoskeletal: No pedal edema Neurologic: Alert and oriented to person and place only, no focal deficits Hypothermia, tachycardia, elevated lactate, acute kidney injury suggestive of severe sepsis Unclear source at this time Complete 30cc/kg IVF bolus Repeat lactate Replete hypokalemia and monitor Monitor renal function IV zosyn for now Blood cultures,urine cultures Follow up CT chest, cervical, abd/pelvis and knee XR Continue IVF for rhabdomyolysis Discussed with Cardiology and ICU. Admit to ICU to continue management Holding off anticoagulation for now per Cards rec Other plans as detailed by Alia Christian PA-C I spent a total of 60 minutes coordinating, documenting and providing care for this patient excluding time spent in performance of separately billed services (2) Hypothermia Encounter type: initial encounter Qualified Code(s): T68.XXXA - Hypothermia, initial encounter (5) Fall Encounter type: initial encounter Qualified Code(s): W19.XXXA - Unspecified fall, initial encounter (6) Thoracic vertebral fracture Encounter type: initial encounter Fracture morphology: unspecified fracture morphology Fracture type: closed Thoracic vertebra fracture level: T12 Qualified Code(s): S22.089A - Unspecified fracture of T11-T12 vertebra, initial encounter for closed fracture (7) Rhabdomyolysis Rhabdomyolysis type: non-traumatic Qualified Code(s): M62.82 - Rhabdomyolysis
--- OUTSIDE RECORDS SUMMARY | 2025-02-09 12:17 | External Medical Summary | Summary of Care ---
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 [place] [address] Allergies Active Allergy Reactions Criticality Noted Date Comments Shrimp Flavor Agent (Non-Screening) 09/16/2015 shrimp seafood documented as of this encounter (statuses as of 10/23/2024) Medications meclizine (ANTIVERT) 25 MG Tablet Take 1 Tab by mouth 3 times a day as needed for Dizziness. 30 Tab 1 0 Active Additional Information Patient not taking.Reported on 10/02/2024 Ketoconazole 2 % External CreamIndication s:Seborrheic dermatitis [...] the morning. 90 Tablet 3 4 Active Baclofen 10 MG Oral Tablet (Lioresal) 1 tablet three times a day as needed for neck pain 90 Tablet 1 4 Active Aspirin 81 MG Oral Tablet Chewable Take 1 Tablet by mouth in the morning. 4 Active Butalbital-APAP -Caffeine 50-325-40 MG Oral Tablet (Fioricet) Take 1 Tablet by mouth every 6 hours as needed (abd pain/neck pain). 90 Tablet 5 Active Butalbital-APAP -Caffeine 50-325-40 MG Oral Tablet (Fioricet) Take 1 Tablet by mouth every 6 hours as needed (abd pain/neck pain). 90 Tablet 4 025 Discontin ued(Refil l) documented as of this encounter (statuses as of 10/23/2024) Active Problems Problem Noted Date Diagnosed Date [...] as of this encounter (statuses as of 10/23/2024) Resolved Problems Problem Noted Date Diagnosed Date Resolved Date FILIBERTO (generalized anxiety disorder) 01/18/2021 01/27/2021 Overview (01/18/2021): Neurology started him on lexapro; it was felt that his vertiginous episodes were related to anxiety and NOT a TIA or the incidentally found vestibular artery stenosis Acute vestibular syndrome 02/20/2020 Chronic neck pain 02/20/2020 03/24/2022 documented as of this encounter (statuses as of 10/23/2024) Immunizations Name Administration Dates Next Due COVID-19 [...] Telephone Encounter - Lora Wong MD - 10/23/2024 4:12 PM ESTSigned Prescriptions: Disp Refills Nbrnirweqy-EQNL-Sypgcsbp 50-325-40 MG Oral*90 Tab*0 Sig: Take 1 Tablet by mouth every 6 hours as needed (abd pain/neck pain). Authorizing Provider: LORA WONG * Telephone Encounter - Stefany Gore [facility] - 10/23/2024 2:41 PM ESTPending Prescriptions: Disp Refills Rngvtgkphh-YIRP-Qjafjqiu 50-325-40 MG Oral*90 Tab*0 Sig: Take 1 Tablet by mouth every 6 hours as needed (abd pain/neck pain). * Telephone Encounter - Stefany Gore [facility] - 10/23/2024 2:41 PM EST I have reviewed the patient’s controlled substance dispensing history in the Prescription Drug Monitoring Program in compliance with the [facility] regulations before prescribing a controlled substance. PDMP checked on 10/23/2024. Pending Prescriptions: Disp Refills Hjpxrnvyiw-SDKF-Hkdikyrl 50-325-40 MG Ora*90 Tab*0 Sig: Take 1 Tablet by mouth every 6 hours as needed (abd pain/neck pain). Last Visit: 07/24/2024 (in office), Visit date not found (telemedicine) Next Visit: Visit date not found Date medication was last filled: 10/02/24 Date medication is due for refill: 10/23/24 Pharmacy: [facility] Is this request for a controlled substance? Yes and Urine Drug Screen Not completed Toxicology results: No results found for this or any previous visit. Please approve if appropriate. Thanks, Stefany Gore Clinical Pharmacist [facility] ([facility] [phone] 10/23/2024, 2:41 PM documented in this encounter Plan of Treatment Upcoming Encounters Date Type Department Care Team (Late st Contact Info) Description 06/20/2025 2:30 PM EDT Nurse Only Ancillary [facility] [place] [id number] [facility], Nurse Annual Wellness [facility] [address] [place] [id number] 10/01/2025 2:00 PM EST Cardiac Studies Cardiac Studies, [facility] [address] [place] [id number] 10/18/2025 2:30 PM EST Office Visit Cardiology, [facility] [address] [place] [address] Naeem Irving DO [address] [place] [id number] Health Maintenance Due Date Last Done Comments COVID-19 Vaccine ( season) 2024 11/30/2023, 01/27/2022, 09/20/2021, Additional history exists Influenza Vaccine (FLU shot) (#1) 2024 09/23/2023, 07/30/2022, 08/20/2021, Additional history exists Depression Screening 05/31/2025 05/31/2024 GFR 07/24/2025 07/24/2024, 05/05, 03/24/2022, Additional history exists Albumin/Creatinine Ratio 06/01/2026 06/01/2023, 08/04 DTap/Tdap Vaccines (2 - Td or Tdap) 02/14/2029 02/14/2019 Colonoscopy Discontinued 12/06/2015, 01/2016, 12/05/2015 Colorectal Cancer Screening Discontinued Pneumococcal Vaccine: 50+ Years Completed 04/15/2017, 04/03/2016 Zoster Vaccines Completed [...]
--- OUTSIDE RECORDS SUMMARY | 2025-02-09 12:17 | External Medical Summary | Summary of Care ---
Author Name Unknown Organization [facility] Address [address] [place] [address] Phone [phone] Care Team Providers Care Tape Weaver Name Role Phone Unavailable Primary Care Provider Unavailabl e Reason for Visit * Reason Onset Date Comments Medication Refill 10/28/2024 Encounter Details Date Type Department Care Team (Late st Contact Info) Description 10/28/2024 Refill Family Practice [facility] [address] [place] [address] Lora Wong MD [address] [facility] [place] [address] Allergies Active Allergy Reactions Criticality Noted Date Comments Shrimp Flavor Agent (Non-Screening) 09/16/2015 shrimp seafood documented as of this encounter (statuses as of 10/28/2024) Medications meclizine (ANTIVERT) 25 MG Tablet Take 1 Tab by mouth 3 times a day as needed for Dizziness. 30 Tab 1 0 Active Additional Information Patient not taking.Reported on 10/02/2024 Ketoconazole 2 % External CreamIndication s:Seborrheic dermatitis Apply topically to affected area daily. Apply to face 60 g 5 3 Active Dicyclomine HCl 20 MG Oral Tablet [...] (abd pain/neck pain). 90 Tablet 5 Active Lisinopril 5 MG Oral Tablet (Prinivil) Take 1 Tablet by mouth in the morning. 90 Tablet 2 5 Active Lisinopril 5 MG Oral Tablet (Prinivil) Take 1 Tablet by mouth in the morning. 30 Tablet 11 4 025 Discontin ued(Refil l) documented as of this encounter (statuses as of 10/28/2024) Active Problems Problem Noted Date Diagnosed Date [...] as of this encounter (statuses as of 10/28/2024) Resolved Problems Problem Noted Date Diagnosed Date Resolved Date FILIBERTO (generalized anxiety disorder) 01/18/2021 01/27/2021 Overview (01/18/2021): Neurology started him on lexapro; it was felt that his vertiginous episodes were related to anxiety and NOT a TIA or the incidentally found vestibular artery stenosis Acute vestibular syndrome 02/20/2020 Chronic neck pain 02/20/2020 03/24/2022 documented as of this encounter (statuses as of 10/28/2024) Immunizations Name Administration Dates Next Due COVID-19 [...] encounter Miscellaneous Notes * Telephone Encounter - Lola Griggs, [facility] - 10/28/2024 2:37 PM ESTSigned Prescriptions: Disp Refills Lisinopril 5 MG Oral Tablet (Prinivil) 90 Tab*2 Sig: Take 1 Tablet by mouth in the morning.Authorizing Provider: LORA WONG User: LOLA GRIGGS E documented in this encounter Plan of Treatment Upcoming Encounters Date Type Department Care Team (Late st Contact Info) Description 06/20/2025 2:30 PM EDT Nurse Only Ancillary [facility] 132 [facility] [place] [address] [place], Nurse Annual Wellness [address] [place] [address] 10/01/2025 2:00 PM EST Cardiac Studies Cardiac Studies, [facility] 132 [facility] [place] [address] 10/18/2025 2:30 PM EST Office Visit Cardiology, [facility] 132 [facility] [place] [address] Naeem Irving, 132 [facility] [place] [address] Health Maintenance Due Date Last Done Comments COVID-19 Vaccine ( season) 2024 11/30/2023, 01/27/2022, 09/20/2021, Additional history exists Influenza Vaccine (FLU shot) (#1) 2024 09/23/2023, 07/30/2022, 08/20/2021, Additional history exists Depression Screening 05/31/2025 05/31/2024 GFR 07/24/2025 07/24/2024, 0812/2022, 03/24/2022, Additional history exists Albumin/Creatinine Ratio 06/01/2026 [...]
--- OUTSIDE RECORDS SUMMARY | 2025-02-09 12:17 | External Medical Summary | Summary of Care ---
Author Name Unknown Organization [facility] Address [address] [place] [address] Phone [phone] Care Team Providers Care Application Support Developer Name Role Phone Unavailable Primary Care Provider Unavailabl e Encounter Details Date Type Department Care Team (Late st Contact Info) Description 10/24/2024 Population Health External Data Unspecified Department Allergies Active Allergy Reactions Criticality Noted Date Comments Shrimp Flavor Agent (Non-Screening) 09/16/2015 shrimp seafood documented as of this encounter (statuses as of 10/24/2024) Medications meclizine (ANTIVERT) 25 MG Tablet Take 1 Tab by mouth 3 times a day as needed for Dizziness. 30 Tab 1 0 Active Additional Information Patient not taking.Reported on 10/02/2024 Ketoconazole 2 % External CreamIndications :Seborrheic dermatitis Apply topically to affected area daily. Apply to face 60 g 5 3 Active Lisinopril 5 MG Oral Tablet (Prinivil) Take 1 Tablet by mouth in the morning. 30 Tablet 11 4 Active Dicyclomine HCl 20 MG Oral Tablet (Bentyl)Indicati ons:Gastroesopha geal reflux disease without esophagitis TAKE ONE TABLET [...] by mouth in the morning. 4 Active Butalbital-APAP- Caffeine 50-325-40 MG Oral Tablet (Fioricet) Take 1 Tablet by mouth every 6 hours as needed (abd pain/neck pain). 90 Tablet 5 Active documented as of this encounter (statuses as of 10/24/2024) Active Problems Problem Noted Date Diagnosed Date [...] as of this encounter (statuses as of 10/24/2024) Resolved Problems Problem Noted Date Diagnosed Date Resolved Date FILIBERTO (generalized anxiety disorder) 01/18/2021 01/27/2021 Overview (01/18/2021): Neurology started him on lexapro; it was felt that his vertiginous episodes were related to anxiety and NOT a TIA or the incidentally found vestibular artery stenosis Acute vestibular syndrome 02/20/2020 Chronic neck pain 02/20/2020 03/24/2022 documented as of this encounter (statuses as of 10/24/2024) Immunizations Name Administration Dates Next Due COVID-19 mRNA, LNP-s, No Pre serve, 2-Dose Series (Moderna) 01/16/2021,12/19/2020 COVID-19, MRNA-LNP, PF, 30 M CG/0.3 mL, 12 YRS AND ABOVE, [facility] 11/30/2023 Pneumococcal Conjugate Vacc, 13 Valent (Prevnar) [...] 06/20/2025 2:30 PM EDT [facility] [address] [place] [address] Zac Nurse Annual Wellness [place] [address] [place] [address] 10/01/2025 2:00 PM EST [facility] [place] [address] 10/18/2025 2:30 PM EST [facility] [place] [address] Naeem Irving, DO [address] [place] [address] Health Maintenance Due Date Last Done Comments [...]
--- OUTSIDE RECORDS SUMMARY | 2025-02-09 12:17 | External Medical Summary | Summary of Care ---
Author Name Unknown Organization [facility] Address [address] [place] [address] Phone [phone] Care Team Providers Care Yard Associate Name Role Phone Unavailable Primary Care Provider Unavailabl e Reason for Visit * Reason Onset Date Comments Medication Refill 11/27/2024 Encounter Details Date Type Department Care Team (Late st Contact Info) Description 11/27/[address] [facility] [address] [place] [id number] Eduardo Diallo MD [address] [place] [id number] Gastroesophageal reflux disease without esophagitis Allergies Active Allergy Reactions Criticality Noted Date Comments Shrimp Flavor Agent (Non-Screening) 09/16/2015 shrimp seafood documented as of this encounter (statuses as of 11/28/2024) Medications meclizine (ANTIVERT) 25 MG Tablet Take 1 Tab by mouth 3 times a day as needed for Dizziness. 30 Tab 1 0 Active Additional Information Patient not taking.Reported on 10/02/2024 Ketoconazole 2 % External CreamIndication s:Seborrheic dermatitis Apply topically to affected area daily. Apply to face 60 g 5 3 Active Atorvastatin Calcium 40 MG Oral Tablet (Lipitor) Take 1 Tablet by mouth in the morning. 90 Tablet 3 4 Active Aspirin 81 MG Oral Tablet Chewable Take 1 Tablet by mouth in the morning. 4 Active Lisinopril 5 MG Oral Tablet (Prinivil) Take 1 Tablet by mouth in the morning. 90 Tablet 2 5 Active Baclofen 10 MG Oral Tablet (Lioresal) 1 tablet three times a day as needed for neck pain 90 Tablet 1 5 Active Butalbital-APAP -Caffeine 50-325-40 MG Oral Tablet (Fioricet) Take 1 Tablet by mouth every 6 hours as needed (abd pain/neck pain). 90 Tablet 5 Active Dicyclomine HCl 20 MG Oral Tablet (Bentyl)Indicat ions:Gastroesop hageal reflux disease without esophagitis TAKE ONE TABLET BY MOUTH FOUR TIMES A DAY NEEDED FOR ABDOMINAL PAIN 120 Tablet 5 5 Active Dicyclomine HCl 20 MG Oral Tablet (Bentyl)Indicat ions:Gastroesop hageal reflux disease without esophagitis TAKE ONE TABLET BY MOUTH FOUR TIMES A DAY NEEDED FOR ABDOMINAL PAIN 120 Tablet 11 4 025 Discontin ued(Refil l) documented as of this encounter (statuses as of 11/28/2024) Active Problems Problem Noted Date Diagnosed Date [...] as of this encounter (statuses as of 11/28/2024) Resolved Problems Problem Noted Date Diagnosed Date Resolved Date FILIBERTO (generalized anxiety disorder) 01/18/2021 01/27/2021 Overview (01/18/2021): Neurology started him on lexapro; it was felt that his vertiginous episodes were related to anxiety and NOT a TIA or the incidentally found vestibular artery stenosis Acute vestibular syndrome 02/20/2020 Chronic neck pain 02/20/2020 03/24/2022 documented as of this encounter (statuses as of 11/28/2024) Immunizations Name Administration Dates Next Due COVID-19 [...] ages 0-17 years) Not on file 11/17/2023 Food Insecurity Answer Date Recorded Within the past 12 months, y ou worried that your food would run out before you got the money to buy more. Never true 11/17/19 24 Within the past 12 months, t he food you bought just didn't last and you didn't have money to get more. Never true 11/17/2023 Do you need food for this week? 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 Not on file Not o n file Not on file documented as of this encounter Miscellaneous Notes * Telephone Encounter - Mariajose Taveras [facility] - 11/28/2024 11:51 AM ESTSigned Prescriptions: Disp Refills Dicyclomine HCl 20 MG Oral Tablet (Bentyl) 120 Ta*5 Sig: TAKE ONE TABLET BY MOUTH FOUR TIMES A DAY NEEDED FOR ABDOMINAL PAINAuthorizing Provider: LORA WONG * Telephone Encounter - Franci Banks [facility] - 11/28/2024 11:48 AM EST Signed Prescriptions: Disp Refills Dicyclomine HCl 20 MG Oral Tablet (Bentyl) 120 Ta*5 Sig: TAKE ONE TABLET BY MOUTH FOUR TIMES A DAY NEEDED FOR ABDOMINAL PAINAuthorizing Provider: LORA WONG * Telephone Encounter - Rhianna Becker [facility] - 11/28/2024 11:41 AM ESTPending Prescriptions: Disp Refills Dicyclomine HCl 20 MG Oral Tablet (Bentyl) 120 Ta*5 Sig: TAKE ONE TABLET BY MOUTH FOUR TIMES A DAY NEEDED FOR ABDOMINAL PAIN * Telephone Encounter - Rhianna Becker [facility] - 11/28/2024 11:39 AM EST Please assist in scheduling next routine appointment. He canceled appointment 09/25/2024. * Telephone Encounter - Rhianna Becker [facility] - 11/28/2024 11:37 AM EST Did you pend patient's preferred pharmacy and medication before forwarding?yes Pharmacy: [facility] Pending Prescriptions: Disp Refills Dicyclomine HCl 20 MG Oral Tablet (Bentyl)120 Ta*5 Sig: TAKE ONE TABLET BY MOUTH FOUR TIMES A DAY NEEDED FOR ABDOMINAL PAIN Last Visit: 07/24/2024 (in office), Visit date not found (telemedicine) Next Visit: Visit date not found- Sent to have routine appointment scheduled in afternoon. If no future appointments scheduled, and last appointment is greater than a year ago, please schedule patient for a follow-up appointment Last date the medication was ordered: 11/29/2023 Is this request for a controlled substance?No [...] 03:38 PM ALT 19 05/21/2020 04:31 PM * Telephone Encounter - Kati Kenny [facility] - 11/28/2024 9:11 AM EST Pt calling b/c he has questions about this prescription please advise documented in this encounter Plan of Treatment Upcoming Encounters Date Type Department Care Team (Late st Contact Info) Description 02/21/2025 2:40 PM EDT Office Visit Family Practice [facility] [address] [place] [address] Lora Wong MD [address] [place] [address] 06/20/2025 2:30 PM EDT Nurse Only Ancillary [facility] [address] [place] [address] [facility], Nurse Annual Wellness [facility] [address] [place] [address] 10/01/2025 2:00 PM EST Cardiac Studies Cardiac Studies, [facility] 132 [facility] [place] [address] 10/18/2025 2:30 PM EST Office Visit Cardiology, [facility] [address] [place] [address] Naeem Irving DO [address] [place] [address] Health Maintenance Due Date Last Done Comments COVID-19 Vaccine (2023- season) 2024 11/30/2023, 01/27/2022, 09/20/2021, Additional history [...] on patient's age to complete this topic Meningitis B Vaccine (Bexsero/Trumemba) Aged Out No longer eligible based on patient's age to complete this topic Sigmoidoscopy Discontinued documented as of this encounter Medical Devices Not on filedocumented as of this encounter Visit Diagnoses Diagnosis Gastroesophageal reflux disease without esophagitis Esophageal reflux documented in this encounter
--- OUTSIDE RECORDS SUMMARY | 2025-02-09 12:17 | External Medical Summary | Summary of Care ---
Author Name Unknown Organization [facility] Address [address] [place] [address] Phone [phone] Care Team Providers Care Computer Hardware Engineer Name Role Phone Unavailable Primary Care Provider Unavailabl e Reason for Visit * Reason Onset Date Comments Medication Refill 11/14/2024 Encounter Details Date Type Department Care Team (Late st Contact Info) Description 11/14/[address] [facility] [address] [facility] [address] Lora Wong MD [address] [place] [facility] [address] Allergies Active Allergy Reactions Criticality Noted Date Comments Shrimp Flavor Agent (Non-Screening) 09/16/2015 shrimp seafood documented as of this encounter (statuses as of 11/15/2024) Medications meclizine (ANTIVERT) 25 MG Tablet Take [...] needed (abd pain/neck pain). 90 Tablet 5 025 Discontin ued(Refil l) documented as of this encounter (statuses as of 11/15/2024) Active Problems Problem Noted Date Diagnosed Date [...] as of this encounter (statuses as of 11/15/2024) Resolved Problems Problem Noted Date Diagnosed Date Resolved Date FILIBERTO (generalized anxiety disorder) 01/18/2021 01/27/2021 Overview (01/18/2021): Neurology started him on lexapro; it was felt that his vertiginous episodes were related to anxiety and NOT a TIA or the incidentally found vestibular artery stenosis Acute vestibular syndrome 02/20/2020 Chronic neck pain 02/20/2020 03/24/2022 documented as of this encounter (statuses as of 11/15/2024) Immunizations Name Administration Dates Next Due COVID-19 [...] Telephone Encounter - Lora Wong MD - 11/15/2024 7:48 AM ESTSigned Prescriptions: Disp Refills Zjlmnwwjpk-UKHP-Koboaufo 50-325-40 MG Oral*90 Tab*0 Sig: Take 1 Tablet by mouth every 6 hours as needed (abd pain/neck pain). Authorizing Provider: LORA WONG * Telephone Encounter - Sravanthi Vazquez [facility] - 11/15/2024 5:19 AM EST Pending Prescriptions: Disp Refills Qwmtgohcan-GHDP-Yllajvmk 50-325-40 MG Oral*90 Tab*0 Sig: Take 1 Tablet by mouth every 6 hours as needed (abd pain/neck pain). * Telephone Encounter - Sravanthi Vazquez [facility] - 11/15/2024 5:19 AM EST I have reviewed the patient’s controlled substance dispensing history in the Prescription Drug Monitoring Program in compliance with the [facility] regulations before prescribing a controlled substance. PDMP checked on 11/15/2024. Pending Prescriptions: Disp Refills Xovcboifss-DQEI-Xwdxofqy 50-325-40 MG Ora*90 Tab*0 Sig: Take 1 Tablet by mouth every 6 hours as needed (abd pain/neck pain). Last Visit: 07/24/2024 (in office), Visit date not found (telemedicine) Next Visit: Visit date not found Date medication was last filled: 10/23 Date medication is due for refill: 11/14 Pharmacy: [facility] Is this request for a controlled substance? Yes and Urine Drug Screen Not completed Toxicology results: No results found for this or any previous visit. Please approve if appropriate. Thank you, Sravanthi Vazquez, PharmD. Clinical Pharmacist [facility] ([facility]) 11/15/2024, 5:19 AM documented in this encounter Plan of Treatment Upcoming Encounters Date Type Department Care Team (Late st Contact Info) Description 06/20/2025 2:30 PM EDT Nurse Only Ancillary [facility] 132 [facility] [place] [address] [facility], Nurse Annual Wellness [address] [place] [address] 10/01/2025 2:00 PM EST Cardiac Studies Cardiac Studies, [facility] 132 [facility] [place] [address] 10/18/2025 2:30 PM EST Office Visit Cardiology, [facility] 132 [facility] [place] [address] Naeem Irving DO 132 [facility] [place] [address] Health Maintenance Due Date Last Done Comments [...]
--- OUTSIDE RECORDS SUMMARY | 2025-02-09 12:17 | External Medical Summary | Summary of Care ---
Author Name Unknown Organization [facility] Address [address] [place] [address] Phone [phone] Care Team Providers Care Volunteer Recruitment Coordinator Name Role Phone Unavailable Primary Care Provider Unavailabl e Reason for Visit * Reason Onset Date Comments Medication Refill 01/18/2025 Encounter Details Date Type Department Care Team (Late st Contact Info) Description 01/18/2025 Refill Family Practice [facility] [address] [place] [address] Lora Wong MD [address] [facility] [place] [address] Allergies Active Allergy Reactions Criticality Noted Date Comments Shrimp Flavor Agent (Non-Screening) 09/16/2015 shrimp seafood documented as of this encounter (statuses as of 01/19/2025) Medications meclizine (ANTIVERT) 25 MG Tablet Take [...] the morning. 90 Tablet 2 5 Active Dicyclomine HCl 20 MG Oral Tablet (Bentyl)Indicat ions:Gastroesop hageal reflux disease without esophagitis TAKE ONE TABLET BY MOUTH FOUR TIMES A DAY NEEDED FOR ABDOMINAL PAIN 120 Tablet 5 5 Active Baclofen 10 MG Oral Tablet [...] as of this encounter (statuses as of 01/19/2025) Active Problems Problem Noted Date Diagnosed Date [...] as of this encounter (statuses as of 01/19/2025) Resolved Problems Problem Noted Date Diagnosed Date Resolved Date FILIBERTO (generalized anxiety disorder) 01/18/2021 01/27/2021 Overview (01/18/2021): Neurology started him on lexapro; it was felt that his vertiginous episodes were related to anxiety and NOT a TIA or the incidentally found vestibular artery stenosis Acute vestibular syndrome 02/20/2020 Chronic neck pain 02/20/2020 03/24/2022 documented as of this encounter (statuses as of 01/19/2025) Immunizations Name Administration Dates Next Due COVID-19 [...] 10 and older)(Boostrix) 02/14/2019 Varicella Zoster Vaccine Gibran lt (Zostavax) 09/08/2018,04/15/2017 Zoster Vaccine Recombinant (Shingrix) 12/19/2018 ,09/08/2018 documented [...] Telephone Encounter - Lora Wong MD - 01/18/2025 10:00 PM EDTSigned Prescriptions: Disp Refills Uubwslisor-XKNG-Rpiceunc 50-325-40 MG Oral*90 Tab*0 Sig: Take 1 Tablet by mouth every 6 hours as needed (abd pain/neck pain). Authorizing Provider: LORA WONG * Telephone Encounter - Tad Osei [facility] - 01/18/2025 2:14 PM EDT Pending Prescriptions: Disp Refills Keuwdnrfgu-QDBH-Ayxjcvdx 50-325-40 MG Oral*90 Tab*0 Sig: Take 1 Tablet by mouth every 6 hours as needed (abd pain/neck pain). * Telephone Encounter - Tad Osei [facility] - 01/18/2025 2:13 PM EDT I have reviewed the patient’s controlled substance dispensing history in the Prescription Drug Monitoring Program in compliance with the [facility] regulations before prescribing a controlled substance. PDMP checked on 01/18/2025. Pending Prescriptions: Disp Refills Xlyobocpoc-CHRZ-Swtlwrvu 50-325-40 MG Ora*90 Tab*0 Sig: Take 1 Tablet by mouth every 6 hours as needed (abd pain/neck pain). Last Visit: 07/24/2024 (in office), Visit date not found (telemedicine) Next Visit: 02/21/2025 Date medication was last filled: 12/31/24 Date medication is due for refill: 01/20/25 Pharmacy: [facility] [id number] Is this request for a controlled substance? Yes and Urine Drug Screen Not completed Toxicology results: No results found for this or any previous visit. Please approve if appropriate. Thanks, Tad Osei, PharmD Clinical Pharmacist [facility] ([facility]) [phone] 01/18/2025, 2:13 PM documented in this encounter Plan of Treatment Upcoming Encounters Date Type Department Care Team (Late st Contact Info) Description 02/21/2025 2:40 PM EDT Office Visit Family Practice [facility] [address] [place] [address] Lora Wong MD [address] [place] [address] 06/20/2025 2:30 PM EDT Nurse Only Ancillary [facility] [address] [place] [address] Z[place], Nurse Annual Wellness [facility] [address] [place] [address] 10/01/2025 2:00 PM EST Cardiac Studies Cardiac Studies, [facility] [address] [place] [phone] 10/18/2025 2:30 PM EST Office Visit Cardiology, [facility] [address] [place] [phone] Naeem Irving, DO [address] [place] [address] Health Maintenance Due Date Last Done Comments COVID-19 Vaccine ( season) 2024 11/30/2023, 01/27/2022, 09/20/2021, Additional history exists Depression Screening 05/31/2025 05/31/2024 Influenza Vaccine (FLU shot) (Season Ended) 2025 09/23/2023, 07/30/2022, 08/20/2021, Additional history exists GFR 07/24/2025 07/24/2024, 05/05, 03/24/2022, Additional history [...]
--- OUTSIDE RECORDS SUMMARY | 2025-02-09 12:17 | External Medical Summary | Summary of Care ---
Author Name Unknown Organization [facility] Address [address] [place] [address] Phone [phone] Care Team Providers Care Lining Strap Closer Name Role Phone Unavailable Primary Care Provider Unavailabl e Reason for Visit * Reason Onset Date Comments Medication Refill 12/28/2024 Encounter Details Date Type Department Care Team (Late st Contact Info) Description 12/28/2024 Refill Family Practice [facility] [address] [place] [address] Lora Wong MD [address] [facility] [place] [address] Allergies Active Allergy Reactions Criticality Noted Date Comments Shrimp Flavor Agent (Non-Screening) 09/16/2015 shrimp seafood documented as of this encounter (statuses as of 12/29/2024) Medications meclizine (ANTIVERT) 25 MG Tablet Take [...] neck pain 90 Tablet 1 5 Active Dicyclomine HCl 20 MG Oral Tablet (Bentyl)Indicat ions:Gastroesop hageal reflux disease without esophagitis TAKE ONE TABLET BY MOUTH FOUR TIMES A DAY NEEDED FOR ABDOMINAL PAIN 120 Tablet 5 5 Active Butalbital-APAP -Caffeine 50-325-40 MG Oral Tablet (Fioricet) Take 1 Tablet by mouth every 6 hours as needed (abd pain/neck pain). 90 Tablet 5 Active Butalbital-APAP -Caffeine 50-325-40 MG Oral Tablet (Fioricet) Take 1 Tablet by mouth every 6 hours as needed (abd pain/neck pain). 90 Tablet 5 025 Discontin ued(Refil l) documented as of this encounter (statuses as of 12/29/2024) Active Problems Problem Noted Date Diagnosed Date [...] as of this encounter (statuses as of 12/29/2024) Resolved Problems Problem Noted Date Diagnosed Date Resolved Date FILIBERTO (generalized anxiety disorder) 01/18/2021 01/27/2021 Overview (01/18/2021): Neurology started him on lexapro; it was felt that his vertiginous episodes were related to anxiety and NOT a TIA or the incidentally found vestibular artery stenosis Acute vestibular syndrome 02/20/2020 Chronic neck pain 02/20/2020 03/24/2022 documented as of this encounter (statuses as of 12/29/2024) Immunizations Name Administration Dates Next Due COVID-19 [...] Telephone Encounter - Lora Wong MD - 12/29/2024 9:29 AM EDTSigned Prescriptions: Disp Refills Kksxkmqfui-JAIN-Rhhbpytg 50-325-40 MG Oral*90 Tab*0 Sig: Take 1 Tablet by mouth every 6 hours as needed (abd pain/neck pain). Authorizing Provider: LORA WONG * Telephone Encounter - Rebecca Macias formerly [facility] - 12/29/2024 7:47 AM EDT Pending Prescriptions: Disp Refills Puvrdncmez-VIDV-Joflduju 50-325-40 MG Oral*90 Tab*0 Sig: Take 1 Tablet by mouth every 6 hours as needed (abd pain/neck pain). * Telephone Encounter - Rebecca Macias RP - 12/29/2024 7:46 AM EDT I have reviewed the patient’s controlled substance dispensing history in the Prescription Drug Monitoring Program in compliance with the [facility] regulations before prescribing a controlled substance. PDMP checked on 12/29/2024. Pending Prescriptions: Disp Refills Sxutabgqxv-GQUN-Qdaovzvj 50-325-40 MG Ora*90 Tab*0 Sig: Take 1 Tablet by mouth every 6 hours as needed (abd pain/neck pain). Last Visit: 07/24/2024 (in office), Visit date not found (telemedicine) Next Visit: 02/21/2025 Date medication was last filled: 12/11/24 Date medication is due for refill: 01/01/25 Pharmacy: [facility] [id number] Is this request for a controlled substance? Yes and Urine Drug Screen Not completed Toxicology results: No results found for this or any previous visit. Please approve if appropriate. Thank you, Rebecca Macias, PharmD Clinical Pharmacist [facility] ([facility]) [phone] 12/29/2024, 7:46 AM documented in this encounter Plan of Treatment Upcoming Encounters Date Type Department Care Team (Late st Contact Info) Description 02/21/2025 2:40 PM EDT Office Visit Family Practice [facility] [address] [address] Lora Wong MD [address] [address] 06/20/2025 2:30 PM EDT Nurse Only Ancillary [facility] [address] [address] Zac, Nurse Annual Wellness [facility] [address] [address] 10/01/2025 2:00 PM EST Cardiac Studies Cardiac Studies, [facility] [address] [phone] 10/18/2025 2:30 PM EST Office Visit Cardiology, [facility] [address] [phone] Naeem Irving, DO [address] [address] Health Maintenance Due Date Last Done Comments [...]
--- OUTSIDE RECORDS SUMMARY | 2025-02-09 12:17 | External Medical Summary | Summary of Care ---
Author Name Unknown Organization [facility] Address [address] [place] [address] Phone [phone] Care Team Providers Care Modeler Name Role Phone Unavailable Primary Care Provider Unavailabl e Reason for Visit * Reason Onset Date Comments Medication Refill 11/13/2024 Encounter Details Date Type Department Care Team (Late st Contact Info) Description 11/13/2024 Refill Family Practice [facility] [address] [place] [facility] [place] [address] Lora Wong MD [address] [place] [address] Allergies Active Allergy Reactions Criticality Noted Date Comments Shrimp Flavor Agent (Non-Screening) 09/16/2015 shrimp seafood documented as of this encounter (statuses as of 11/14/2024) Medications meclizine (ANTIVERT) 25 MG Tablet Take [...] neck pain 90 Tablet 1 5 Active Baclofen 10 MG Oral Tablet (Lioresal) 1 tablet three times a day as needed for neck pain 90 Tablet 1 4 025 Discontin ued(Refil l) documented as of this encounter (statuses as of 11/14/2024) Active Problems Problem Noted Date Diagnosed Date [...] as of this encounter (statuses as of 11/14/2024) Resolved Problems Problem Noted Date Diagnosed Date Resolved Date FILIBERTO (generalized anxiety disorder) 01/18/2021 01/27/2021 Overview (01/18/2021): Neurology started him on lexapro; it was felt that his vertiginous episodes were related to anxiety and NOT a TIA or the incidentally found vestibular artery stenosis Acute vestibular syndrome 02/20/2020 Chronic neck pain 02/20/2020 03/24/2022 documented as of this encounter (statuses as of 11/14/2024) Immunizations Name Administration Dates Next Due COVID-19 [...] Telephone Encounter - Lora Wong MD - 11/14/2024 7:49 AM ESTSigned Prescriptions: Disp Refills Baclofen 10 MG Oral Tablet (Lioresal) 90 Tab*1 Si tablet three times a day as needed for neck pain Authorizing Provider: LORA WONG * Telephone Encounter - Gela Baires [facility] - 11/14/2024 7:30 AM ESTPending Prescriptions: Disp Refills Baclofen 10 MG Oral Tablet (Lioresal) 90 Tab*1 Si tablet three times a day as needed for neck pain * Telephone Encounter - Gela Baires [facility] - 11/14/2024 7:29 AM EST Refill pharmacists currently not authorized to [...] appointment Last date the medication was ordered: 09/14/24 Pharmacy: [facility] [id number] Is this request for a controlled substance? no Urine Drug Screen:No results found for this [...] 03:38 PM ALT 19 05/21/2020 04:31 PM documented in this encounter Plan of Treatment Upcoming Encounters Date Type Department Care Team (Late st Contact Info) Description 06/20/2025 2:30 PM EDT Nurse Only Ancillary [facility] [address] [address] Zac, Nurse Annual Wellness [facility] [address] [place] [address] 10/01/2025 2:00 PM EST Cardiac Studies Cardiac Studies, [facility] [address] [place] [address] 10/18/2025 2:30 PM EST Office Visit Cardiology, [facility] [address] [address] Naeem Irving DO [address] [address] Health Maintenance Due Date Last Done Comments [...]
--- OUTSIDE RECORDS SUMMARY | 2025-02-09 12:17 | External Medical Summary | Summary of Care ---
Author Name Unknown Organization [facility] Address [address] [place] [address] Phone [phone] Care Team Providers Care Keysmith Name Role Phone Unavailable Primary Care Provider Unavailabl e Reason for Visit * Reason Onset Date Comments Medication Refill 01/16/2025 Encounter Details Date Type Department Care Team (Late st Contact Info) Description 01/16/2025 Refill Family Practice [facility] [address] [place] [address] Lora Wong MD [address] [facility] [place] [address] Allergies Active Allergy Reactions Criticality Noted Date Comments Shrimp Flavor Agent (Non-Screening) 09/16/2015 shrimp seafood documented as of this encounter (statuses as of 01/16/2025) Medications meclizine (ANTIVERT) 25 MG Tablet Take [...] (abd pain/neck pain). 90 Tablet 5 Active Baclofen 10 MG Oral Tablet (Lioresal) 1 tablet three times a day as needed for neck pain 90 Tablet 1 5 Active Baclofen 10 MG Oral Tablet (Lioresal) 1 tablet three times a day as needed for neck pain 90 Tablet 1 5 025 Discontin ued(Refil l) documented as of this encounter (statuses as of 01/16/2025) Active Problems Problem Noted Date Diagnosed Date [...] as of this encounter (statuses as of 01/16/2025) Resolved Problems Problem Noted Date Diagnosed Date Resolved Date FILIBERTO (generalized anxiety disorder) 01/18/2021 01/27/2021 Overview (01/18/2021): Neurology started him on lexapro; it was felt that his vertiginous episodes were related to anxiety and NOT a TIA or the incidentally found vestibular artery stenosis Acute vestibular syndrome 02/20/2020 Chronic neck pain 02/20/2020 03/24/2022 documented as of this encounter (statuses as of 01/16/2025) Immunizations Name Administration Dates Next Due COVID-19 [...] Telephone Encounter - Lora Wong MD - 01/16/2025 8:48 PM EDTSigned Prescriptions: Disp Refills Baclofen 10 MG Oral Tablet (Lioresal) 90 Tab*1 Si tablet three times a day as needed for neck pain Authorizing Provider: LORA WONG * Telephone Encounter - Tessa Crenshaw RPh - 01/16/2025 8:21 PM EDTPending Prescriptions: Disp Refills Baclofen 10 MG Oral Tablet (Lioresal) 90 Tab*1 Si tablet three times a day as needed for neck pain * Telephone Encounter - Tessa Crenshaw RPh - 01/16/2025 8:20 PM EDT [facility] is currently not authorized to approve refills for the pended medication(s) per refill protocol. Please approve if appropriate. Thanks, Ligia OrtizD Clinical Pharmacist Centralized Clinical Pharmacy Services ([facility]) [phone] 01/16/2025, 8:20 PM * Telephone Encounter - Tessa Crenshaw RPh - 01/16/2025 8:20 PM EDT Pending Prescriptions: Disp Refills Baclofen 10 MG Oral Tablet (Lioresal) 90 Tab*1 Si tablet three times a day as needed for neck pain Last Visit: 07/24/2024 (in office), Visit date not found (telemedicine) Next Visit: 02/21/2025 If no future appointments scheduled, and last appointment is greater than a year ago, please schedule patient for a follow-up appointment Last date the medication was ordered: 11/14/24 Pharmacy: [facility] [address] Is this request for a controlled substance? No Urine Drug Screen:No results found for this [...] 2:40 PM EDT Office Visit Family Practice [facility] [address] [address] Lora Wong MD [address] [address] 06/20/2025 2:30 PM EDT Nurse Only Ancillary [facility] [address] [address] Zac, Nurse Annual Wellness [facility] [address] [address] 10/01/2025 2:00 PM EST Cardiac Studies Cardiac Studies, [facility] [address] [place] [phone] 10/18/2025 2:30 PM EST Office Visit Cardiology, [facility] [address] [place] [phone] Naeem Irving DO [address] [address] Health Maintenance Due Date Last Done Comments [...]
--- OUTSIDE RECORDS SUMMARY | 2025-02-09 12:17 | External Medical Summary | Summary of Care ---
Author Name Unknown Organization [facility] Address [address] [place] [address] Phone [phone] Care Team Providers Care Engraver Block Name Role Phone Unavailable Primary Care Provider Unavailabl e Reason for Visit * Reason Onset Date Comments Medication Refill 12/07/2024 Encounter Details Date Type Department Care Team (Late st Contact Info) Description 12/07/2024 Refill Family Practice [facility] [address] [facility] [place] [address] Lora Wong MD [address] [place] [address] Allergies Active Allergy Reactions Criticality Noted Date Comments Shrimp Flavor Agent (Non-Screening) 09/16/2015 shrimp seafood documented as of this encounter (statuses as of 12/08/2024) Medications meclizine (ANTIVERT) 25 MG Tablet Take [...] as of this encounter (statuses as of 12/08/2024) Active Problems Problem Noted Date Diagnosed Date [...] as of this encounter (statuses as of 12/08/2024) Resolved Problems Problem Noted Date Diagnosed Date Resolved Date FILIBERTO (generalized anxiety disorder) 01/18/2021 01/27/2021 Overview (01/18/2021): Neurology started him on lexapro; it was felt that his vertiginous episodes were related to anxiety and NOT a TIA or the incidentally found vestibular artery stenosis Acute vestibular syndrome 02/20/2020 Chronic neck pain 02/20/2020 03/24/2022 documented as of this encounter (statuses as of 12/08/2024) Immunizations Name Administration Dates Next Due COVID-19 [...] Telephone Encounter - Lora Wong MD - 12/08/2024 11:24 AM ESTSigned Prescriptions: Disp Refills Lydradlyoh-MVWA-Ffdododn 50-325-40 MG Oral*90 Tab*0 Sig: Take 1 Tablet by mouth every 6 hours as needed (abd pain/neck pain). Authorizing Provider: LORA WONG * Telephone Encounter - Tessa Crenshaw RP - 12/08/2024 9:29 AM ESTPending Prescriptions: Disp Refills Qvvioenqth-OTVK-Uczyktoq 50-325-40 MG Oral*90 Tab*0 Sig: Take 1 Tablet by mouth every 6 hours as needed (abd pain/neck pain). * Telephone Encounter - Tessa Crenshaw RP - 12/08/2024 9:28 AM EST I have reviewed the patient’s controlled substance dispensing history in the Prescription Drug Monitoring Program in compliance with the [facility] regulations before prescribing a controlled substance. PDMP checked on 12/08/2024. Pending Prescriptions: Disp Refills Rqmdglabdi-UCKH-Jyfracfs 50-325-40 MG Ora*90 Tab*0 Sig: Take 1 Tablet by mouth every 6 hours as needed (abd pain/neck pain). Last Visit: 07/24/2024 (in office), Visit date not found (telemedicine) Next Visit: 02/21/2025 Date medication was last filled: 11/15/24 Date medication is due for refill: 12/06/24 Pharmacy: [facility] [address] Is this request for a controlled substance? Yes and Urine Drug Screen Not completed Toxicology results: No results found for this or any previous visit. Please approve if appropriate. Thanks, Tessa Crenshaw PharmD Clinical Pharmacist [facility] ([facility]) [phone] 12/08/2024, 9:29 AM documented in this encounter Plan of Treatment Upcoming Encounters Date Type Department Care Team (Late st Contact Info) Description 02/21/2025 2:40 PM EDT Office Visit Family Practice [facility] [address] [address] Lora Wong MD [address] [address] 06/20/2025 2:30 PM EDT Nurse Only Ancillary [facility] [address] [address] [facility], Nurse Annual Wellness [facility] [address] [address] 10/01/2025 2:00 PM EST Cardiac Studies Cardiac Studies, [facility] [address] [address] 10/18/2025 2:30 PM EST Office Visit Cardiology, [facility] [address] [address] Naeem Irving DO [address] [place] [address] Health Maintenance Due Date Last Done Comments [...]
--- OUTSIDE RECORDS SUMMARY | 2025-02-09 12:17 | External Medical Summary | Summary of Care ---
Author Name Unknown Organization [facility] Address [address] [place] [address] Phone [phone] Care Team Providers Care Varitype Operator Name Role Phone Unavailable Primary Care Provider Unavailabl e Reason for Visit * Reason Onset Date Comments Medication Refill 12/28/2024 Encounter Details Date Type Department Care Team (Late st Contact Info) Description 12/28/2024 Refill Family Practice [facility] [address] [place] [address] Lora Wong MD [address] [place] [address] Allergies Active Allergy Reactions Criticality Noted Date [...] 12/29/2024 9:29 AM EDTSigned Prescriptions: Disp Refills Vwuagspriv-XTFK-Dvmmxyer 50-325-40 MG Oral*90 Tab*0 Sig: Take 1 Tablet by mouth every 6 hours as needed (abd pain/neck pain). Authorizing Provider: LORA WONG * Telephone Encounter - Rebecca Macias [facility] - 12/29/2024 7:47 AM EDT Pending Prescriptions: Disp Refills Tnqwdbsjhx-YDGY-Woksmphi 50-325-40 MG Oral*90 Tab*0 Sig: Take 1 Tablet by mouth every 6 hours as needed (abd pain/neck pain). * Telephone Encounter - Rebecca Macias RP - 12/29/2024 7:46 AM EDT I have reviewed the patient’s controlled substance dispensing history in the Prescription Drug Monitoring Program in compliance with the [facility] regulations before prescribing a controlled substance. PDMP checked on 12/29/2024. Pending Prescriptions: Disp Refills Hnyoewdznf-EKPV-Aovlwhpg 50-325-40 MG Ora*90 Tab*0 Sig: Take 1 Tablet by mouth every 6 hours as needed (abd pain/neck pain). Last Visit: 07/24/2024 (in office), Visit date not found (telemedicine) Next Visit: 02/21/2025 Date medication was last filled: 12/11/24 Date medication is due for refill: 01/01/25 Pharmacy: [facility] [address] Is this request for a controlled substance? Yes and Urine Drug Screen Not completed Toxicology results: No results found for this or any previous visit. Please approve if appropriate. Thank you, Rebecca Macias, PharmD Clinical Pharmacist [facility] ([facility]) [phone] 12/29/2024, 7:46 AM documented in this encounter Plan of Treatment Upcoming Encounters Date Type Department Care Team (Late st Contact Info) Description 02/21/2025 2:40 PM EDT Office Visit Family Practice [facility] [address] [address] Lora Wong MD [address] [address] 06/20/2025 2:30 PM EDT Nurse Only Ancillary [facility] [address] [address] Zac, Nurse Annual Wellness [facility] [address] [address] 10/01/2025 2:00 PM EST Cardiac Studies Cardiac Studies, [facility] [address] [phone] 10/18/2025 2:30 PM EST Office Visit Cardiology, [facility] [address] [phone] Naeem Irving, DO [address] [address] Health Maintenance Due Date Last Done Comments [...]
--- OUTSIDE RECORDS SUMMARY | 2025-02-09 12:18 | External Medical Summary | Summary of Care ---
Author Name Unknown Organization [facility] Address [address] [place] [address] Phone [phone] Care Team Providers Care Usps Letter Carrier Name Role Phone Frank Crowder MD Primary Care Provider [phone] Reason for Referral * Precert (Diagnostic Medical) (Within 10 days (routine)) - Authorized Specialty Diagnoses / Procedures Referred By Contac t Referred To Contact Cardiac Studies Diagnoses Nonrheumatic aortic valve stenosis Aortic root enlargement (HCC) Ascending aorta enlargement (HCC) Procedures ECHO, COMPLETE (2D), TRANS-THORACIC Naeem Irving DO [address] [place] [address] Phone: tel: fax: Referral ID Status Reason Start Date Expiration Date V isits Requested Visits Authorized [id number] Authorized Precert 10/03/2025 999 999 Reason for Visit * Reason Comments NEW PATIENT Encounter Details Date Type Department Care Team (Late st Contact Info) Description 10/02/2024 3:00 PM EST Office Visit Cardiology, [facility] [address] [place] [address] Naeem Irving DO [address] [place] [address] Nonrheumatic aortic valve stenosis*; Aortic root enlargement (HCC); Ascending aorta enlargement (HCC); Dyslipidemia, goal LDL below 70; Hospital discharge follow-up Allergies Active Allergy Reactions Criticality Noted Date Comments Shrimp Flavor Agent (Non-Screening) 09/16/2015 shrimp seafood documented as of this encounter (statuses as of 10/02/2024) Medications meclizine (ANTIVERT) 25 MG Tablet Take [...] neck pain 90 Tablet 1 4 Active Butalbital-APAP- Caffeine 50-325-40 MG Oral Tablet (Fioricet) Take 1 Tablet by mouth every 6 hours as needed (abd pain/neck pain). 90 Tablet 4 Active Aspirin 81 MG Oral Tablet Chewable Take 1 Tablet by mouth in the morning. 4 Active documented as of this encounter (statuses as of 10/02/2024) Active Problems Problem Noted Date Diagnosed Date [...] as of this encounter (statuses as of 10/02/2024) Resolved Problems Problem Noted Date Diagnosed Date Resolved Date FILIBERTO (generalized anxiety disorder) 01/18/2021 01/27/2021 Overview (01/18/2021): Neurology started him on lexapro; it was felt that his vertiginous episodes were related to anxiety and NOT a TIA or the incidentally found vestibular artery stenosis Acute vestibular syndrome 02/20/2020 Chronic neck pain 02/20/2020 03/24/2022 documented as of this encounter (statuses as of 10/02/2024) Immunizations Name Administration Dates Next Due COVID-19 [...] Sign Reading Time Taken Comments Blood Pressure 130/70 10/02/2024 3:05 PM EST Pulse 76 10/02/2024 3:05 PM EST Temperature - - Respiratory Rate 16 10/02/2024 3:05 PM EST Oxygen Saturation - - Inhaled Oxygen Concentration - - Weight 86 kg (189 lb 8 oz) 10/02/2024 3:05 PM ES T Height - - Body Mass Index 29.68 05/31/2024 1:54 PM EDT documented in this encounter Progress Notes * Naeem Irving DO - 10/02/2024 3:02 PM EST SUBJECTIVE: Patient returns today for hospital follow-up. Presented to the emergency department 09/20/24 due to unwitnessed fall. Unable to get up secondary to lower extremity weakness. Hypertensive on admission prompting addition of carvedilol. Mildly elevated troponin (peak 182) secondary to demand ischemia in the setting of tachycardia and recent fall. No ischemic ECG changes or chest discomfort. Echocardiogram demonstrating normal LV function with mild aortic valve stenosis. Today, feeling well since hospital discharge. Working with physical therapy and occupational therapy at home. No recurrent falls. Ambulating with use of a cane. Denies exertional chest pain or unusual shortness of breath. Mild, chronic bilateral pedal and ankle edema unchanged. Blood pressure improved. Discontinue carvedilol due to headaches. Denies palpitations, lightheadedness, or dizziness. Tolerating other medications listed below. Offers no other concerns/complaints at this time. ECG 09/22/24: Sinus rhythm with sinus arrhythmia and first-degree AV block, left anterior fascicular block, possible atrial septal infarct, age undetermined. 2D echocardiogram [facility] 09/20/2024: LVEF 60-65% Mild concentric LVH Mild aortic valve calcification Mild aortic valve stenosis Moderate mitral annular calcification Mild aortic root enlargement, 4.1 cm Mild ascending aortic enlargement, 4.1 cm ROS: All others negative other than those noted in the HPI. Patient Active Problem List Diagnosis Migraine without status migrainosus, not intractable Gastroesophageal reflux disease without esophagitis HTN, goal below 130/80 History of partial colectomy Stenosis of left vertebral artery Dyslipidemia Irritable bowel syndrome with diarrhea DDD (degenerative disc disease), cervical First degree AV block Overweight (BMI 25.0-29.9) Social History Tobacco Use Smoking status: Never Smokeless tobacco: Never Tobacco comments: smoked briefly as teenager Vaping Use Vaping status: Never Used Substance Use Topics Alcohol use: Yes Comment: rarely-gin Drug use: No Review of patient's allergies indicates: Allergen Reactions Shrimp Flavor Agent (Non-Screening) shrimp seafood Current Outpatient Medications Medication Sig Dispense Refill Ketoconazole 2 % External Cream Apply topically to affected area daily. Apply to face 60 g 5 Lisinopril 5 MG Oral Tablet (Prinivil) Take 1 Tablet by mouth in the morning. 30 Tablet 11 Dicyclomine HCl 20 MG Oral Tablet (Bentyl) TAKE ONE TABLET BY MOUTH FOUR TIMES A DAY NEEDED FOR ABDOMINAL PAIN 120 Tablet 11 Atorvastatin Calcium 40 MG Oral Tablet (Lipitor) Take 1 Tablet by mouth in the morning. 90 Tablet 3 Baclofen 10 MG Oral Tablet (Lioresal) 1 tablet three times a day as needed for neck pain 90 Tablet 1 Gvmbvmumou-FZER-Jeougsfp 50-325-40 MG Oral Tablet (Fioricet) Take 1 Tablet by mouth every 6 hours as needed (abd pain/neck pain). 90 Tablet 0 meclizine (ANTIVERT) 25 MG Tablet Take 1 Tab by mouth 3 times a day as needed for Dizziness. (Patient not taking: Reported on 10/02/2024) 30 Tab 1 No current facility-administered medications for this visit. Lipid Panel Results: Results for orders placed or performed in visit on 05/26/23 LIPID PANEL WITH DIRECT LDL IF TG IS HIGH Result Value Ref Range Triglycerides 119 <=174 mg/dL Cholesterol 157 <200 mg/dL HDL Cholesterol 68 >39 mg/dL Non-HDL Cholesterol 89 <=159 mg/dL LDL Cholesterol 65 <=129 mg/dL Lab Results Component Value Date/Time TSH - [facility] 1.14 09/21/2016 03:21 PM CBC Results: Results for orders placed or performed in visit on 11/26/17 CBC Result Value Ref Range WBC 6.47 4.00 - 10.80 K/uL RBC 3.45 (L) 4.50 - 5.25 M/uL HGB 9.6 (L) 14.0 - 16.8 g/dL HCT 32.1 (L) 40.0 - 48.4 % MCV 93.0 82.0 - 99.5 fL MCH 27.8 27.0 - 34.0 pg MCHC 29.9 (L) 32.0 - 36.0 g/dL RDW 16.8 (H) 11.5 - 15.5 % PLT 419 (H) 140 - 400 K/uL MPV 8.4 6.6 - 11.1 fL OBJECTIVE/PHYSICAL EXAMINATION: BP 130/70 (BP Site: Left Arm) | Pulse 76 | Resp 16 | Wt 86 kg (189 lb 8 oz) | BMI 29.68 kg/m² | BSA 2.02 m² General: NAD, AAO x3, well nourished. HEENT: Normocephalic. Atraumatic. Conjunctiva pink, no scleral icterus. No carotid bruits, the carotid upstrokes are brisk. No JVD. No HJR Heart: Regular with ectop.. normal S-1 and S-2 no S-3 or S-4 gallop. 2/6 systolic ejection murmur heard best at the right 2nd intercostal space. PMI is not displaced. No RV heave. Lungs: Clear bilateral without rales , rhonchi, or wheeze. Abdomen: Normal bowel sounds. Soft. Nontender. No masses or organomegaly. No abdominal bruits. Extremities: Mild bilateral pedal and ankle edema. Pulses: radial=2/4. Neuro: No focal deficits. ASSESSMENT: 1. HTN - controlled 2. Mild aortic valve stenosis 3. Mild aortic root and ascending aortic enlargement 4.1cm 4. Dyslipidemia - controlled with LDL 65mg/dL 5. Hospital discharge PLAN: Echo, complete (2d), trans-thoracic Natural history and pathophysiology of aortic valve stenosis, and ascending aortic enlargement discussed. Recommend repeat resting 2D transthoracic echocardiogram in 1 year for surveillance of aorticvalve stenosis and mild ascending aortic enlargement. Continue current cardiovascular medications in cluding low-dose aspirin, atorvastatin, and lisinopril. Encouraged to participate with physical therapy and occupational therapy daily. Fall precautions advised. All questions answered to patient's satisfaction. Follow Up: Return in about 1 year (around 10/02/2025). I spent a total of 40-54 minutes (exact time 40 mins) on the date of service in preparation, delivery, and documentation of the care provided to Dandre Mott excluding any time spent in the performance of separately billed services or time spent by another provider/QHP. Naeem Irving DO, FACC Associate Cardiology - [place] Frank documented in this encounter Nursing Notes * Natasha Mendosa CMA - 10/02/2024 2:51 PM EST Examination Room: Name: Dandre Mott Date of : (1950). Reason for Visit: New patient Interim Hospitalization(s): denies Problems/Concerns: Bilateral lower extremity weakness. Discontinued carvedilol d/t headaches and palpitations. Unsure if it was working because he does not check BP at home. Chest Pain/SOB: denies [facility] Discussed: Yes [facility] is a way you can talk to your provider online through e-mail. Would you like to sign up? I can activate it for you? ALREADY ACTIVE Patient was instructed to not get up on the exam table until directed and assisted by their provider; patient is to remain seated in the chair/ wheelchair/ exam table for fall prevention and safety reasons. Patient is aware to have assistance to step down off exam table with personnel. Patient voiced full comprehension of instructions. documented in this encounter Plan of Treatment Upcoming Encounters Date Type Department Care Team (Late st Contact Info) Description 06/20/2025 2:30 PM EDT Nurse Only Ancillary Carli Frank [place] [address] [facility] [place] [address] Frank, Nurse Annual Wellness [facility] [address] [facility] [place] [address] 10/01/2025 2:00 PM EST Cardiac Studies Cardiac Studies, [facility] [address] [facility] [place] [address] 10/18/2025 2:30 PM EST Office Visit Cardiology, [facility] [address] [facility] [place] [address] Naeem Irving DO [address] [facility] [place] [address] Scheduled Orders Name Type Priority Associated Diagnoses Orde r Schedule ECHO, COMPLETE (2D), TRANS-THORACIC Echocardiology Routine Nonrheumatic aortic valve stenosis Aortic root enlargement (HCC) Ascending aorta enlargement (HCC) Expected: 10/03/2025 (Approximate), Expires: 11/02/2026 Health Maintenance Due Date Last Done Comments [...] as of this encounter Visit Diagnoses Diagnosis Nonrheumatic aortic valve stenosis- Primary Aortic valve disorders Aortic root enlargement (HCC) Other specified disorders of arteries and arterioles Ascending aorta enlargement (HCC) Other specified disorders of arteries and arterioles Dyslipidemia, goal LDL below 70 Other and unspecified hyperlipidemia Hospital discharge follow-up Other follow-up examination documented in this encounter Care Teams Usps Letter Carrier Relationship Specialty Start Date End Date Frank Crowder MD [address] [place] [address] PCP - General Family Medicine 01/18/21 documented as of this encounter"
--- OUTSIDE RECORDS SUMMARY | 2025-02-09 12:18 | External Medical Summary | Summary of Care ---
Author Name Unknown Organization [facility] Address [address] [place] [address] Phone [phone] Care Team Providers Care Order Checker Name Role Phone Frank Crowder MD Primary Care Provider [phone] Encounter Details Date Type Department Care Team (Late st Contact Info) Description 09/22/2024 Telephone Cardiology, [facility] [address] [place] [address] Odalis Wolf CRNP [address] [place] [address] Allergies Active Allergy Reactions Criticality Noted Date Comments Shrimp Flavor 09/16/2015 shrimp seafood documented as of this encounter (statuses as of 09/22/2024) Medications meclizine (ANTIVERT) 25 MG Tablet Take 1 Tab by mouth 3 times a day as needed for Dizziness. 30 Tab 1 0 Active Ketoconazole 2 % External CreamIndications :Seborrheic dermatitis [...] the morning. 90 Tablet 3 4 Active Butalbital-APAP- Caffeine 50-325-40 MG Oral Tablet (Fioricet) Take 1 Tablet by mouth every 6 hours as needed (abd pain/neck pain). 90 Tablet 4 Active Baclofen 10 MG Oral Tablet (Lioresal) 1 tablet three times a day as needed for neck pain 90 Tablet 1 4 Active documented as of this encounter (statuses as of 09/22/2024) Active Problems Problem Noted Date Diagnosed Date [...] as of this encounter (statuses as of 09/22/2024) Resolved Problems Problem Noted Date Diagnosed Date Resolved Date FILIBERTO (generalized anxiety disorder) 01/18/2021 01/27/2021 Overview (01/18/2021): Neurology started him on lexapro; it was felt that his vertiginous episodes were related to anxiety and NOT a TIA or the incidentally found vestibular artery stenosis Acute vestibular syndrome 02/20/2020 Chronic neck pain 02/20/2020 03/24/2022 documented as of this encounter (statuses as of 09/22/2024) Immunizations Name Administration Dates Next Due COVID-19 mRNA, LNP-s, No Pre serve, 2-Dose Series (Moderna) 01/16/2021,12/19/2020 COVID-19, MRNA-LNP, PF, 30 M CG/0.3 mL, 12 YRS AND ABOVE, IM ([facility]ER-[facility]) 11/30/2023 Pneumococcal Conjugate Vacc, 13 Valent (Prevnar) [...] encounter Miscellaneous Notes * Telephone Encounter - Chidi Parra OSA - 09/22/2024 1:36 PM EST Mariajose, this patient will be new to the office. May I offer an appt with any provider? Thank you. * Telephone Encounter - Odalis Wolf CRNP - 09/22/2024 1:04 PM EST Patient was admitted to [facility] 09/20/24 after experiencing fall and unable to get up due to bilaterallower extremity weakness. Cardiology consulted due to mildly elevated troponins. Blood pressure elevated in 160-170s over 100s in the hospital. He was started on carvedilol 3.125 mg twice daily for blood pressure control. ECHO in hospital showed preserved LV systolic function with mild aortic stenosis and mildly enlarged aortic root (4.1 cm) and ascending aorta (4.1 cm). Low-dose aspirin added. Can we schedule outpatient cardiology appointment in 1 to 2 weeks follow-up on blood pressure and evaluate if further testing (e.g., stress test) is necessary? documented in this encounter Plan of Treatment Upcoming Encounters Date Type Department Care Team (Late st Contact Info) Description 09/25/2024 11:00 AM EST Office Visit Family Practice [facility] [address] [place] [address] Frank Crowder MD [address] [place] [address] 06/20/2025 2:30 PM EDT Nurse Only Ancillary [facility] [address] [place] [address] Zac, Nurse Annual Wellness [facility] [address] [place] [address] Health Maintenance Due Date Last Done Comments [...] filedocumented as of this encounter Care Teams Order Checker Relationship Specialty Start Date End Date Frank Crowder MD [address] [facility] [place] [address] PCP - General Family Medicine 01/18/21 documented as of this encounter
--- OUTSIDE RECORDS SUMMARY | 2025-02-09 12:18 | External Medical Summary | Summary of Care ---
Author Name Unknown Organization [facility] Address [address] [place] [address] Phone [phone] Care Team Providers Care Continuous Yarn Dyeing 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 Name Role Phone Frank Crowder MD Primary Care Provider [phone] Encounter Details Date Type Department Care Team (Late st Contact Info) Description 09/22/2024 Orders Only Family Practice [facility] [address] [facility] [place] [address] Frank Crowder MD [address] [place] [address] Allergies Active Allergy Reactions Criticality Noted Date [...] CG/0.3 mL, 12 YRS AND ABOVE, IM (PFIZER-[facility]) 11/30/2023 Pneumococcal Conjugate Vacc, 13 Valent (Prevnar) [...] PM EDT Nurse Only Ancillary Carli Frank [place] [address] [place] [address] Zac Nurse Annual Wellness [place] [address] [address] Health Maintenance Due Date Last Done Comments [...] Not on filedocumented as of this encounter Procedures Procedure Name Priority Date/Time Associated Diagnosis Comments VASC AORTIC DUPLEX EVAL-COMPLETE Routine 09/21/2024 documented in this encounter Results * VASC AORTIC DUPLEX EVAL-COMPLETE (09/21/2024) Anatomical Region Laterality Modality Abdomen, Vascular Other 09/21/2024 us Naeem COOK VASCULAR Final Resul t documented in this encounter Care Teams Continuous Yarn Dyeing 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 Relationship Specialty Start Date End Date Frank Crowder MD [address] [place] [address] PCP - General Family Medicine 01/18/21 documented as of this encounter
--- OUTSIDE RECORDS SUMMARY | 2025-02-09 12:18 | External Medical Summary | Summary of Care ---
Author Name Unknown Organization [facility] Address [address] [place] [address] Phone [phone] Care Team Providers Care Pipe Fitter Maintenance Name Role Phone Frank Crowder MD Primary Care Provider [phone] Encounter Details Date Type Department Care Team (Late st Contact Info) Description 09/22/2024 Telephone Cardiology, [facility] [address] [place] [address] Odalis Wolf CRNP [address] [place] [address] Allergies Active Allergy Reactions Criticality [...] CG/0.3 mL, 12 YRS AND ABOVE, IM ([facility]) 11/30/2023 Pneumococcal Conjugate Vacc, 13 Valent (Prevnar) [...] 1:04 PM EST Patient was admitted to [facility] 09/20/24 after experiencing fall and unable to [...] 11:00 AM EST Office Visit Family Practice [facility] [address] [place] [address] Frank Crowder MD [address] [place] [address] 06/20/2025 2:30 PM EDT Nurse Only Ancillary [facility] [address] [place] [address] Zac, Nurse Annual Wellness [facility] [address] [place] [address] Health Maintenance Due Date Last Done Comments [...] filedocumented as of this encounter Care Teams Pipe Fitter Maintenance Relationship Specialty Start Date End Date Frank Crowder MD [address] [facility] [place] [address] PCP - General Family Medicine 01/18/21 documented as of this encounter
--- OUTSIDE RECORDS SUMMARY | 2025-02-09 12:18 | External Medical Summary | Summary of Care ---
Author Name Unknown Organization [facility] Address [address] [place] [address] Phone [phone] Care Team Providers Care Adjunct Mathematics Instructor Name Role Phone Frank Crowder MD Primary Care Provider [phone] Encounter Details Date Type Department Care Team (Late st Contact Info) Description 09/22/2024 Telephone Cardiology, [facility] [address] [place] [address] Odalis Wolf CRNP [address] [place] [address] Allergies Active Allergy Reactions Criticality Noted Date Comments Shrimp Flavor 09/16/2015 shrimp seafood documented as of this encounter (statuses as of 09/25/2024) Medications meclizine (ANTIVERT) 25 MG Tablet Take [...] as of this encounter (statuses as of 09/25/2024) Active Problems Problem Noted Date Diagnosed Date [...] as of this encounter (statuses as of 09/25/2024) Resolved Problems Problem Noted Date Diagnosed Date Resolved Date FILIBERTO (generalized anxiety disorder) 01/18/2021 01/27/2021 Overview (01/18/2021): Neurology started him on lexapro; it was felt that his vertiginous episodes were related to anxiety and NOT a TIA or the incidentally found vestibular artery stenosis Acute vestibular syndrome 02/20/2020 Chronic neck pain 02/20/2020 03/24/2022 documented as of this encounter (statuses as of 09/25/2024) Immunizations Name Administration Dates Next Due COVID-19 mRNA, LNP-s, No Pre serve, 2-Dose Series (Moderna) 01/16/2021,12/19/2020 COVID-19, MRNA-LNP, PF, 30 M CG/0.3 mL, 12 YRS AND ABOVE, IM ([facility]) 11/30/2023 Pneumococcal Conjugate Vacc, 13 Valent [...] Telephone Encounter - Chidi Parra OSA - 09/25/2024 12:34 PM EST Called patient, he is scheduled on: NEW CARDIOLOGY at 3:00 PM (30 min)Arrive by 2:45 PM Wednesday October 02, 2024 Appointment Provider:Naeem Irving DO in CARDIOLOGY [facility] * Telephone Encounter - Mariajose Hernández RN - 09/22/2024 2:07 PM EST Acceptable to offer given provider recommendation below. Please route back with date/time confirmed. * Telephone Encounter - Chidi Parra OSA - 09/22/2024 1:36 PM EST Mariajose, this patient will be new to the office. May I offer an appt with any provider? Thank you. * Telephone Encounter - Odalis Wolf CRNP - 09/22/2024 1:04 PM EST Patient was admitted to [facility] 09/20/24 after experiencing fall and unable to [...] 10/02/2024 3:00 PM EST Office Visit Cardiology, [facility] [address] [place] [address] Naeem Irving DO [address] [place] [address] 06/20/2025 2:30 PM EDT Nurse Only Ancillary [facility] [place] [address] [place], Nurse Annual Wellness [facility] [address] [place] [address] Health Maintenance Due Date Last Done Comments [...] filedocumented as of this encounter Care Teams Adjunct Mathematics Instructor Relationship Specialty Start Date End Date Frank Crowder MD [address] [place] [address] PCP - General Family Medicine 01/18/21 documented as of this encounter
--- OUTSIDE RECORDS SUMMARY | 2025-02-09 12:18 | External Medical Summary | Summary of Care ---
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 [address] Allergies Active Allergy Reactions Criticality Noted Date Comments Shrimp Flavor Agent (Non-Screening) 09/16/2015 shrimp seafood documented as of this encounter (statuses as of 09/29/2024) Medications meclizine (ANTIVERT) 25 MG Tablet Take [...] neck pain 90 Tablet 1 4 Active Butalbital-APAP -Caffeine 50-325-40 MG Oral Tablet (Fioricet) Take 1 Tablet by mouth every 6 hours as needed (abd pain/neck pain). 90 Tablet 4 Active Butalbital-APAP -Caffeine 50-325-40 MG Oral Tablet (Fioricet) Take 1 Tablet by mouth every 6 hours as needed (abd pain/neck pain). 90 Tablet 4 09/28/20 24 Discontinu ed(Refill) documented as of this encounter (statuses as of 09/29/2024) Active Problems Problem Noted Date Diagnosed Date [...] as of this encounter (statuses as of 09/29/2024) Resolved Problems Problem Noted Date Diagnosed Date Resolved Date FILIBERTO (generalized anxiety disorder) 01/18/2021 01/27/2021 Overview (01/18/2021): Neurology started him on lexapro; it was felt that his vertiginous episodes were related to anxiety and NOT a TIA or the incidentally found vestibular artery stenosis Acute vestibular syndrome 02/20/2020 Chronic neck pain 02/20/2020 03/24/2022 documented as of this encounter (statuses as of 09/29/2024) Immunizations Name Administration Dates Next Due COVID-19 [...] Telephone Encounter - Lora Wong MD - 09/29/2024 12:50 PM ESTSigned Prescriptions: Disp Refills Uqfmfizhgs-PCAI-Qznogsoe 50-325-40 MG Oral*90 Tab*0 Sig: Take 1 Tablet by mouth every 6 hours as needed (abd pain/neck pain). Authorizing Provider: LORA WONG * [facility] 12[facility]45 PM EST Pending Prescriptions: Disp Refills Nyskdxyslf-XUIC-Ppwlezav 50-325-40 MG Oral*90 Tab*0 Sig: Take 1 Tablet by mouth every 6 hours as needed (abd pain/neck pain). * Telephone Encounter - Tad Osei, [facility] - 09/29/2024 12:45 PM EST Pending Prescriptions: Disp Refills Vfjvfqdukc-TIQZ-Mgtjcuuj 50-325-40 MG Oral*90 Tab*0 Sig: Take 1 Tablet by mouth every 6 hours as needed (abd pain/neck pain). * Telephone Encounter - Tad Osei, [facility] - 09/29/2024 12:45 PM EST I have reviewed the patient’s controlled substance dispensing history in the Prescription Drug Monitoring Program in compliance with the [facility] regulations before prescribing a controlled substance. PDMP checked on 09/29/2024. Pending Prescriptions: Disp Refills Dbhucmfddk-DDOE-Nvouyufo 50-325-40 MG Ora*90 Tab*0 Sig: Take 1 Tablet by mouth every 6 hours as needed (abd pain/neck pain). Last Visit: 07/24/2024 (in office), Visit date not found (telemedicine) Next Visit: Visit date not found Date medication was last filled: 09/03/24 Date medication is due for refill: 09/25/24 Pharmacy: [facility] [address] [place] [address] Is this request for a controlled substance? Yes and Urine Drug Screen Not completed Toxicology results: No results found for this or any previous visit. Please approve if appropriate. Thanks, Tad Osei PharmD Clinical Pharmacist [facility] ([facility] [phone] 09/29/2024, 12:45 PM * Telephone Encounter - Yojana Hastings PHARM Tech - 09/29/2024 10:11 AM EST Did you pend patient's preferred pharmacy and medication before forwarding?yes Pharmacy: [facility] [address] [place] [address] Pending Prescriptions: Disp Refills Gavssorxda-IRSI-Fwscyhva 50-325-40 MG Ora*90 Tab*0 Sig: Take 1 Tablet by mouth every 6 hours as needed (abd pain/neck pain). Last Visit: 07/24/2024 (in office), Visit date not found (telemedicine) Next Visit: Visit date not found If no future appointments scheduled, and last appointment is greater than a year ago, please schedule patient for a follow-up appointment Last date the medication was ordered: 08-31-24 Is this request for a controlled substance?Yes, What was the last refill date 08-31-24 w/ quantity 90 and dosage 50-325-40 mg and Urine Drug Screen Not completed Urine Drug Screen:No results found for this [...] 10/02/2024 3:00 PM EST Office Visit Cardiology, [facility] [address] [place] [address] Naeem Irving O, DO [address] [facility] [place] [address] 06/20/2025 2:30 PM EDT Nurse Only Ancillary [facility] [address] [place] [address] [facility], Nurse Annual Wellness [facility] [address] [place] [address] Health Maintenance Due Date Last Done Comments [...] filedocumented as of this encounter Care Teams Field Crop Farm Worker Relationship Specialty Start Date End Date Lora Wong MD [address] [place] [address] PCP - General Family Medicine 01/18/21 documented as of this encounter
--- OUTSIDE RECORDS SUMMARY | 2025-02-09 12:18 | External Medical Summary | Summary of Care ---
Author Name Unknown Organization [facility] Address [address] [place] [address] Phone [phone] Care Team Providers Care Lamp Developer Name Role Phone Frank Crowder MD Primary Care Provider [phone] Encounter Details Date Type Department Care Team (Late st Contact Info) Description 09/22/2024 Telephone Cardiology, [facility] [address] [place] [address] Odalis Wolf CRNP [address] [place] [address] Allergies Active Allergy Reactions Criticality [...] CG/0.3 mL, 12 YRS AND ABOVE, IM ([facility]) 11/30/2023 Pneumococcal Conjugate Vacc, 13 Valent (Prevnar) [...] Miscellaneous Notes * Telephone Encounter - Mariajose Hernández RN [...] 1:04 PM EST Patient was admitted to [facility] 09/20/24 after experiencing fall and unable [...] 11:00 AM EST Office Visit Family Practice [facility] [address] [address] Frank Crowder MD [address] [place] [address] 06/20/2025 2:30 PM EDT Nurse Only Ancillary [facility] [address] [place] [address] [facility], Nurse Annual Wellness [facility] [address] [place] [address] Health Maintenance Due Date Last Done Comments [...] filedocumented as of this encounter Care Teams Lamp Developer Relationship Specialty Start Date End Date Frank Crowder MD [address] [place] [address] PCP - General Family Medicine 01/18/21 documented as of this encounter
--- NOTE | 2025-02-09 12:36 | CT Scan Report ---
CT SCAN OF THE BRAIN WITHOUT IV CONTRAST CLINICAL HISTORY: Fall. Altered mental status. COMPARISON STUDY: MRI of the brain February 11, 2020. Head CT September 20, 2024. TECHNIQUE: Unenhanced axial CT scan of the brain was performed from the vertex to the skull base. A dose lowering technique was utilized adhering to the principles of ALARA. FINDINGS: Brain parenchyma: No acute intracranial hemorrhage, midline shift or mass effect is present. Torres-whi te matter differentiation is preserved. There are no extra-axial fluid collections. There are no find ings to suggest acute dural sinus thrombosis or acute territorial infarct. There is mild atrophy and small vessel disease. Ventricles, sulci, cisterns: There is no hydrocephalus. The basal cisterns are patent. Calvarium: No calvarial fractures. Sinuses and mastoids: The visualized paranasal sinuses are clear. The mastoid air cells are well pneu matized. Orbits: The bony orbits are grossly intact. IMPRESSION: 1. No acute intracranial findings. 2. No calvarial fractures. ACT 112: Negative or not required by law. Electronically signed by: Shon Palencia M.D. 02/09/2025 12:35 PM
--- NOTE | 2025-02-09 12:40 | CT Scan Report ---
CT SCAN OF THE CERVICAL SPINE CLINICAL HISTORY: Fall. COMPARISON STUDY: CTA of the neck February 11, 2020. TECHNIQUE: CT scan of the cervical spine is performed from the skull base to the upper thoracic spine . Images are reviewed in the axial, sagittal, and coronal planes. IV contrast was not administered fo r this examination. A dose lowering technique was utilized adhering to the principles of ALARA. FINDINGS: Skeletal structures: There is no evidence of fracture or subluxation involving the cervical spine. Ve rtebral body height and alignment are maintained. The odontoid process and lateral masses are intact . The atlantoaxial articulation is preserved. The spinous processes appear intact. There is moderate multilevel disc space narrowing and facet arthrosis within the cervical spine. Soft tissues: The prevertebral and paraspinous soft tissues are within normal limits. Calvarium: The visualized calvarium at the skull base appears intact. Brain parenchyma: Partially visualized brain parenchyma at the skull base is within normal limits. Lung apices: Clear as visualized. IMPRESSION: No acute cervical spine fracture or subluxation. ACT 112: Negative or not required by law. Electronically signed by: Shon Palencia M.D. 02/09/2025 12:38 PM
[2025-02-09 12:45] LABS: BUN Creatinine Ratio 15.7 (10-20); Blood Urea Nitrogen 20 mg/dl (6-23); Calcium 7.5 mg/dl (8.6-10.3); Carbon Dioxide 23 mmol/L (21-32); Chloride 107 mmol/L (98-107); Creatinine Clr Calc Pharmacy 47.7 ml/min; Glucose 136 mg/dl (70-99(Fasting))
--- NOTE | 2025-02-09 12:45 | CT Scan Report ---
ABDOMEN AND PELVIS CT WITHOUT CONTRAST HISTORY: fall, ams, nausea TECHNIQUE: Multiaxial CT images of the abdomen and pelvis were performed without contrast. A dose lo wering technique was utilized adhering to the principles of ALARA. COMPARISON STUDY: 10/24/2017 FINDINGS: ABDOMEN: Stable dilated gallbladder. Liver, spleen, pancreas, adrenal glands, and kidneys show no gene dence of acute injury on this noncontrast exam. There are a few small right renal cysts. There are a few small renal calculi with no hydronephrosis or ureteral calculi. There are scattered atherosclerot ic calcifications. No abdominal aortic aneurysm. There is wall thickening at the proximal duodenum wh ich could represent duodenitis or ulcer. Pelvis: There is a wid[place] ventral hernia containing multiple nonobstructed bowel loops. There is a right anterior lateral abdominal wall hernia containing multiple nonobstructed small bowel loops. No bowel inflammation or obstruction seen. Urinary bladder is prominently distended. Prostate is enlarg ed. No free fluid or free air. No soft tissue hematoma. Osseous structures: There is osteopenia. There is progressive lumbar degenerative disc disease. There is an acute mild compression fracture at the T12 vertebral body. No other acute fractures seen at th e visualized osseous structures. IMPRESSION: 1. Mild acute vertebral body compression fracture at T12. 2. No other acute injury seen at the abdomen or pelvis. 3. Duodenitis versus duodenal ulcer versus artifact from nondistention. 4. Otherwise as described. ACT 112: Negative or not required by law. The above report was generated using voice recognition software. It may contain grammatical, syntax o r spelling errors. Electronically signed by: Charlie Lees M.D. 02/09/2025 12:43 PM
--- NOTE | 2025-02-09 12:45 | XRay Report ---
XR chest 1V portable CLINICAL HISTORY: weakness COMPARISON STUDY: 09/20/2024 FINDINGS: Stable mild cardiomegaly without pulmonary vascular congestion. No effusion, consolidation, or pneumothorax. IMPRESSION: No acute findings. ACT 112: Negative or not required by law. Electronically signed by: Charlie Lees M.D. 02/09/2025 12:44 PM
--- NOTE | 2025-02-09 12:46 | XRay Report ---
XR knee LT 1 or 2V routine CLINICAL HISTORY: fall COMPARISON: None FINDINGS: There is a trace joint effusion. No fracture or dislocation. There is mild osteoarthritis. IMPRESSION: No fracture seen. ACT 112: Negative or not required by law. Electronically signed by: Charlie Lees M.D. 02/09/2025 12:44 PM
--- NOTE | 2025-02-09 12:47 | CT Scan Report ---
CT OF THE CHEST WITHOUT IV CONTRAST CLINICAL HISTORY: Fall. Altered mental status. COMPARISON STUDY: Chest radiograph September 20, 2024. CT DOSE: 3274.18 mGy.cm TECHNIQUE: Axial images of the chest were obtained without IV contrast. Images were reviewed in the axial, sagittal, and coronal planes. IV contrast was not administered for this examination. Automat ed exposure control was utilized for the study. A dose lowering technique was utilized adhering to t he principles of ALARA. FINDINGS: Thoracic aorta is suboptimally assessed on unenhanced exam but no mediastinal hematoma is present. There is aneurysmal dilatation of the ascending aorta measuring 4.7 cm. There is moderate ao rtic valvular calcification. Moderate coronary artery calcification is noted. The heart is mildly enl arged. There is no pneumothorax or pleural effusion. No pulmonary contusion is present. No acute rib fractures are present. There is a mild compression fracture of the superior endplate of T12 with 30% loss of vertebral body height centrally. There is no retropulsion. There is no extension into the pos terior elements. There is moderate circumferential wall thickening of the proximal to mid esophagus. There is also wall thickening of the distal esophagus with stranding. IMPRESSION: 1. Acute T12 compression fracture with 30% loss of vertebral body height centrally. No retropulsion. 2. No additional acute traumatic findings within the chest. 3. Proximal and distal esophageal wall thickening. This is nonspecific but favors esophagitis. 4. Aneurysmal dilatation of the ascending aorta measuring up to 4.7 cm. ACT 112: Negative or not required by law. Electronically signed by: Shon Palencia M.D. 02/09/2025 12:46 PM
[2025-02-09 12:51] LABS: Troponin I High Sensitivity 210.1 pg/ml (0-20)
--- NOTE | 2025-02-09 12:51 | Post Operative Brief Note ---
Cardiology Brief Post Op Date of Surgery February 09, 2025 Pre & Post Diagnosis Preprocedure diagnosis: Atrial fibrillation with rapid ventricular response, hypotension Postprocedure diagnosis: Ongoing atrial fibrillation with rapid ventricular spots Procedure Direct-current cardioversion procedure: Patient was critically ill and informed consent was implied. Vital signs were monitored via the standard fashion. Patient received a single dose of 300 J of biphasic energy. No sedation was administered due to hypotension. Cardioversion was unsuccessful with ongoing atrial fibrillation with rapid ventricular response. Pediatrician Active Practice Santos Walter DO Fabrication Inspector None Estimated Blood Loss 0 Findings Consistent with Post-Op Diagnosis As noted above Anesthesia Type None Complications No complications were immediately apparent.
[2025-02-09 12:59] LABS: Appearance Urine Clear (Clear); Bacteria Urine Automated None Seen (None Seen); Bilirubin Urine Negative (Negative); Blood Urine 3+ (Negative); Color Urine Yellow; Epithelial Cell Urine Auto 0-2 /hpf (0-2); Glucose Urine UA Negative (Negative); Ketones Urine 1+ (Negative); Leukocyte Esterase Urine Negative (Negative); Nitrite Urine Negative (Negative); Protein Urine 1+ (Negative); Specific Gravity Urine 1.014 (1.000-1.030); Urobilinogen Urine Negative (Negative); WBC Urine Automated 0-5 /hpf (0-5); pH Urine 6.5 (4.5-7.5)
[2025-02-09] MEDS: RAPID SEQUENCE INDUCTION BAG ONE (13:18)
[2025-02-09] MEDS: POTASSIUM CHLORIDE 10 MEQ / 100ML WTR IV ONE (13:28)
[2025-02-09] MEDS: MAGNESIUM SULFATE 1GM / D5W BAG IV ONE (13:28)
[2025-02-09 13:29] LABS: Adenovirus PCR Not Detected (NotDetected); Bordetella parapertussis PCR Not Detected (NotDetected); Bordetella pertussis PCR Not Detected (NotDetected); Chlamydia pneumoniae PCR Not Detected (NotDetected); Coronavirus 229E PCR Not Detected (NotDetected); Coronavirus CoV-2 (COVID19)PCR Not Detected (NotDetected); Coronavirus HKU1 PCR Not Detected (NotDetected); Coronavirus NL63 PCR Not Detected (NotDetected); Coronavirus OC43PCR Not Detected (NotDetected); Human Metapneumovirus PCR Not Detected (NotDetected); Influenza A PCR Not Detected (NotDetected); Influenza B PCR Not Detected (NotDetected); Mycoplasma pneumoniae PCR Not Detected (NotDetected); Parainfluenza Virus 1 PCR Not Detected (NotDetected); Parainfluenza Virus 2 PCR Not Detected (NotDetected); Parainfluenza Virus 3 PCR Not Detected (NotDetected); Parainfluenza Virus 4 PCR Not Detected (NotDetected); Respiratory Syncytial VirusPCR Not Detected (NotDetected); Rhinovirus/Enterovirus PCR Not Detected (NotDetected)
[2025-02-09] MEDS: METOPROLOL TARTRATE 1 MG/ML VIAL IV ONE (13:29)
[2025-02-09 13:37] LABS: Potassium 2.6 mmol/L (3.5-5.1)
[2025-02-09] MEDS: SODIUM CHLORIDE 0.9% 500 ML IV SCH (14:02)
--- NOTE | 2025-02-09 14:15 | Critical Care Consultation ---
Date of Consultation February 09, 2025 Assessment & Plan (1) Atrial fibrillation with rapid ventricular response: (2) Volume depletion: (3) Hypomagnesemia: (4) Acute kidney injury: (5) Lactic acidosis: (6) Hypothermia: (7) Rhabdomyolysis: (8) Thoracic vertebral fracture: Plan Neuro: -No acute issues -CT head negative for acute abnormalities. CV: New onset atrial fibrillation with RVR -Metoprol PRN for sustained HR > 120 -Order hep gtt w/o bolus -Maintain K around 4 and mag 2-3 -Cards following Hypovolemic shock (improved) -Hypotensive with SBP to the 80's -Lactate 4.1. Improved after resuscitation to 2. -Given 2 liters of cyrstalloid in ED. -Maintian SBP < 180 and MAP > 65 Pulm: -No acute issues -Maintain SpO2 > 92% -Patient on room air GI: Dysphagia -Bedside swallow eval unable to take PO -Speech therapy consult -MIVF at 125ml/hr : Acute kidney injury related to hypovolemia -Creatinine 1.79 on admission improved to 1.26 after volume resuscitation. -Monitor renal function qam. Hypokalemia; Hypomagnesemia -Monitor and replace -K 2.7 and Mag 1.6 Heme: -Monitor CBC qam -Transfuse for Hgb < 7 or if active bleeding Endo: Stress hyperglycemia -BG goal range 140-180 -Insulin as appropriate -TSH WNL. AM cortisol pending. ID: -WBC 10.77 on admission -Hypothermic on presentation to 3 -Blood cultures pending -UA negative -CT chest no signs of pneumonia -Continue empiric Zosyn at this time. Consider deescalation or d/c if appropriate. Prophylaxis: -SCD for mechaical DVT prophylaxis -DVT chemoprophylaxis/anticoagulation with therapeutic heparin gtt -GI prophylaxis not indicated Disposition: ICU for continued evaluation and management if hypovolemia, electrolyte abnormalities, and new on set atrial fibrillation with high risk for decline. Patient is full code. Supervising Physician Co-Signing Physician Notes 74-year-old male with a history of aneurysmal dilation, hypertension, left vertebral artery stenosis, first-degree AV block, IBS and GERD who sustained a fall at home. He was found by his brother who called 911. In the ER patient was found to be in atrial fibrillation with rapid ventricular response and hypotension. He underwent cardioversion x 3. He was found to be hypokalemic and dehydrated. He is currently receiving electrolyte replacements and crystalloid infusion. On exam he appears lethargic but does respond to simple commands. Is mildly tachypneic. Heart exam shows tachycardic rate which is irregularly irregular. Mild crackles at the bases. Nonfocal neurological exam. Patient with evidence of hypovolemic shock and rhabdomyolysis. Continue crystalloid infusion. Continue labs every 4 hours and aggressive replacement of potassium. Continue heparin drip given atrial fibrillation. Appreciate cardiology input. Follow-up echocardiogram. Lactic acidosis fortunately resolved. TSH unremarkable. Currently on empiric antibiotics with Zosyn for possible gastrointestinal source. Patient also with T12 mild acute vertebral body compression fracture. Will need follow-up as an outpatient. CRITICAL CARE TIME I have personally spent 55 minutes of critical care time in the direct management of this patient. This is a life/limb threatening event. This includes time spent evaluating patient, direct bedside care, chart review, placing orders, interpretation of diagnostic studies, discussion with consultants, patient, and family members, as well as other required patient management activities. This time is exclusive of all separately billable procedures, and teaching time and separate from and in addition to any other critical care service time. History of Present Illness Reason for Consultation: Hypovolemic shock, electrolyte abnormalities w/ atrial fibrillation w/ RVR Attending Physician: Sujey Fermin MD History of Present Illness Mr. Mott is a 74y/o M with PMHx significant for HLD, HTN, left vertebral artery stenosis, first-degree AV block, GERD, IBS with diarrhea, cervical DDD, chronic neck pain, history of migraines, acute vestibular syndrome, history of diverticular abscess and perforation s/p partial colectomy and subsequent reversal and FILIBERTO who presented to the ED via EMS after sustaining a fall at home and was found to be in unstable AFib with RVR. Patient taken to the ED at [facility]. Upon arrival lab work was notable for hypokalemia, potassium 2.7, acute kidney injury with creatinine of 1.79 having been 0.75 in September,, hemoglobin of 19 and serum lactate level 4.1. Fluid and electrolyte resuscitation were initiated. Due to tachycardia and hypotension emergent direct-current cardioversion was attempted three times with 200, 200, and finally 300 joules without return to sinus rhythm. The patient then received a dose of 2.5 mg of IV metoprolol over 5 minutes with subsequent improvement in his heart rates down to 90 to 110's. Patient transferred to ICU for continued evaluation and management if hypovolemia, electrolyte abnormalities, and new on set atrial fibrillation with high risk for decline. Allergies Allergy/AdvReac Type Severity Reaction Status Date / Time shrimp AdvReac Unknown GI SYMPTOMS Verified 02/11/20 06:09 Home Medications Medication Instructions Recorded Confirmed Type baclofen 10 mg tablet 10 mg PO TID PRN Muscle Spasm/Neck 02/11/20 02/09/25 History Pain dicyclomine 20 mg tablet 20 mg PO QID PRN Abdominal Pain 02/11/20 02/09/25 History atorvastatin 40 mg tablet 40 mg PO QAM 09/20/24 02/09/25 History bpxmcozqdg-[id number]-hanrwmey 1 tab PO Q6H PRN Abdominal 09/20/24 02/09/25 History 50 mg-325 mg-40 mg tablet Pain/Neck Pain lisinopril 5 mg tablet 5 mg PO QAM 09/20/24 02/09/25 History Patient History Social History Smoking Status: Never smoker Second Hand Exposure: No; Do You Dip or Chew Tobacco: No; Tobacco Cessation Education Requested by Patient: No Hx Alcohol Use: No Hx Substance Use: No Preferred Language: Liberian Communication Ability: Effective Compress 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 Required: No Beliefs That Will Affect Care: None Current Living Situation: Alone Other Information That Helps Us Care for You: No Feels Safe at Home: Yes Safety Concerns: Feels Safe At This Time Assistive Devices: Cane, Denture - Upper, Denture - Lower and Glasses Review of Systems 2 Review of Systems: Constitutional: No Weight Change, No Fever, No Chills, No Night Sweats, No Fatigue, No Malaise ENT/Mouth: No Hearing Changes, No Ear Pain, No Nasal Congestion, No Sinus Pain, No Hoarseness, No sore throat, No Rhinorrhea, No Swallowing Difficulty Eyes: No Eye Pain, No Swelling, No Redness, No Foreign Body, No Discharge, No Vision Changes Cardiovascular: No Chest Pain, No SOB, No PND, No Dyspnea on Exertion, No Orthopnea, No Claudication, No Edema, No Palpitations Respiratory: No Cough, No Sputum, No Wheezing, No Smoke Exposure, No Dyspnea Gastrointestinal: No Nausea, No Vomiting, No Diarrhea, No Constipation, No Pain, No Heartburn, No Anorexia, No Dysphagia, No Hematochezia, No Melena, No Flatulence, No Jaundice Genitourinary: No Dysuria, No Urinary Frequency, No Hematuria, No Urinary Incontinence, No Urgency, No Flank Pain, No Urinary Flow Changes, No Hesitancy Musculoskeletal: + b/l knee pain. No Myalgias, No Joint Swelling, No Joint Stiffness, No Back Pain, No Neck Pain, No Injury History Skin: No Skin Lesions, No Pruritis, No Hair Changes, No skin changes. Neuro: No Weakness, No Numbness, No Paresthesias, No Loss of Consciousness, No Syncope, No Dizziness, No Headache, No Coordination Changes, No Recent Falls Psych: No Anxiety/Panic, No Depression, No Insomnia, No Personality Changes, No Delusions, No Rumination, No SI/HI/AH/VH, No Social Issues, No Memory Changes, No Violence/Abuse Hx., No Eating Concerns Heme/Lymph: No Bruising, No Bleeding, No Transfusions History, No Lymphadenopathy Physical Exam 2 Physical Exam: VITALS: Reviewed. WEIGHT/BMI reviewed. GEN: Healthy appearing, well-developed, NAD. PSYCH: Good Judgment. AOx3. Normal memory, mood, and affect. HEENT -Head: NC/AT; -Eyes: PERRL, EOMI. No discharge or redn ess; -Ears: External ears are normal. Normal TMs. -Nose: Normal nares. -Mouth and throat: MMM. Normal gums, muc aleksey, palate,. Good dentition. NECK: Supple, with no masses. CV: RRR, no m/r/g. LUNGS: CTAB, no w/r/c. ABD: Soft, NT/ND, NBS, no masses or organomegaly. : N/A SKIN: Warm, well perfused. No skin rashes or abnormal lesions. MSK: No deformities, Normal gait. EXT: No clubbing, cyanosis, or edema. NEURO: Ambulating with no limitations. Normal muscle strength and tone. No focal deficits. Results & Data Results & Data Vital Signs (Past 12 Hours) Vital Signs Temp Pulse Pulse Resp BP BP Pulse Ox 02/09/25 13:51 02/09/25 13:35 105/89 02/09/25 13:33 35.3 C L 100 H 24 96 02/09/25 13:30 35.5 C L 102 H 16 95 02/09/25 13:30 35.5 C L 111 H 18 105/89 94 02/09/25 12:51 35 C L 108 H 22 146/96 H 95 02/09/25 12:51 34.4 C L 02/09/25 12:27 145/106 H 02/09/25 12:05 128/100 02/09/25 12:00 102 H 20 98 02/09/25 11:56 125/76 02/09/25 11:51 116/84 02/09/25 11:42 98 H 24 143/81 H 97 02/09/25 11:36 95 H 24 84/66 L 99 02/09/25 11:36 84/66 L 02/09/25 11:31 111/68 02/09/25 11:27 97 H 22 82/64 L 98 02/09/25 11:21 166 H 18 97 02/09/25 11:15 144 H 20 121/87 100 02/09/25 11:09 155 H 18 117/75 91 02/09/25 11:06 110/90 02/09/25 11:06 149 H 02/09/25 11:01 115/81 02/09/25 10:55 115/80 02/09/25 10:54 157 H 18 99/77 L 96 02/09/25 10:51 139 H 18 69/52 L 02/09/25 10:40 107/77 02/09/25 10:33 162 H 25 H 02/09/25 10:27 162 H 02/09/25 10:21 35.5 C L 162 H 20 122/82 96 O2 Del Method O2 Flow Rate 02/09/25 13:51 Room Air 02/09/25 13:35 02/09/25 13:33 02/09/25 13:30 02/09/25 13:30 Room Air 02/09/25 12:51 Room Air 0 02/09/25 12:51 02/09/25 12:27 02/09/25 12:05 02/09/25 12:00 Room Air 02/09/25 11:56 02/09/25 11:51 02/09/25 11:42 Nasal Cannula 4 02/09/25 11:36 Nasal Cannula 4 02/09/25 11:36 02/09/25 11:31 02/09/25 11:27 Nasal Cannula 6 02/09/25 11:21 Nasal Cannula 6 02/09/25 11:15 Nasal Cannula 6 02/09/25 11:09 Nasal Cannula 6 02/09/25 11:06 02/09/25 11:06 02/09/25 11:01 02/09/25 10:55 02/09/25 10:54 Nasal Cannula 6 02/09/25 10:51 02/09/25 10:40 02/09/25 10:33 02/09/25 10:27 02/09/25 10:21 Room Air Laboratory Results 02/09/25 10:36 02/09/25 14:17 Abnormal Lab Results 02/09/25 02/09/25 02/09/25 10:36 10:47 12:12 WBC 10.77 RBC 5.99 Hgb 19.1 H Hct 54.0 H MCV 90.2 MCH 31.9 MCHC 35.4 RDW Std Deviation 49.4 H RDW Coeff of Ceci 15.1 H Plt Count 169 MPV 10.5 Immature Gran % (Auto) 0.4 Neut % (Auto) 91.1 Lymph % (Auto) 2.6 Cloud % (Auto) 5.7 Eos % (Auto) 0.0 Baso % (Auto) 0.2 Neut # (Auto) 9.82 H Lymph # (Auto) 0.28 L Cloud # (Auto) 0.61 H Eos # (Auto) 0.00 Baso # (Auto) 0.02 Immature Gran # (Auto) 0.04 PT 14.1 H INR 1.3 H Sodium 140 TNP Potassium 2.7 L TNP Chloride 96 L 107 Carbon Dioxide 20 L 23 Anion Gap 24 H TNP BUN 23 20 Creatinine 1.79 H 1.27 D Est Cr Clr Drug Dosing Not Reportable 47.7 eGFR 39.03 58.92 BUN/Creatinine Ratio 12.8 15.7 Glucose 139 H 136 H Lactate 4.1 H* 2.9 H* Calcium 10.0 7.5 L D Magnesium 2.4 Total Bilirubin 0.8 AST 48 H ALT 18 Alkaline Phosphatase 162 H Total Creatine Kinase 2343 H Troponin I High Sens 284.2 H* 210.1 H* D Total Protein 7.5 Albumin 4.3 Globulin 3.2 Albumin/Globulin Ratio 1.3 Procalcitonin 0.44 TSH 0.436 Urine Color Urine Appearance Urine pH Ur Specific [place] Urine Protein Urine Glucose (UA) Urine Ketones Urine Blood Urine Nitrite Urine Bilirubin Urine Urobilinogen Ur Leukocyte Esterase Urine WBC (Auto) Urine RBC (Auto) U Hyaline Cast (Auto) U Epithel Cells (Auto) Urine Bacteria (Auto) Adenovirus (PCR) B. pertussis DNA (PCR) B.parapertussis DNA PCR C. pneumoniae DNA (PCR) Coronavirus OC43 (PCR) Coronavirus HKU1 (PCR) Coronavirus 229E (PCR) SARS-CoV-2 (PCR) Coronavirus NL63 (PCR) Human Metapneumovir PCR Influenza Type A (PCR) Influenza Type B (PCR) M. pneumoniae (PCR) Parainfluenza 1 (PCR) Parainfluenza 2 (PCR) Parainfluenza 3 (PCR) Parainfluenza 4 (PCR) RSV (PCR) Entero/Rhino (PCR) 02/09/25 02/09/25 02/09/25 12:52 14:17 Unknown WBC RBC Hgb Hct MCV MCH MCHC RDW Std Deviation RDW Coeff of Ceci Plt Count MPV Immature Gran % (Auto) Neut % (Auto) Lymph % (Auto) Cloud % (Auto) Eos % (Auto) Baso % (Auto) Neut # (Auto) Lymph # (Auto) Cloud # (Auto) Eos # (Auto) Baso # (Auto) Immature Gran # (Auto) PT INR Sodium 143 142 Potassium 2.6 L 2.7 L Chloride 105 Carbon Dioxide 21 Anion Gap 16 H BUN 22 Creatinine 1.26 Est Cr Clr Drug Dosing 48.6 eGFR 59.48 BUN/Creatinine Ratio 17.5 Glucose 134 H Lactate 2.0 Calcium 8.7 Magnesium Total Bilirubin AST ALT Alkaline Phosphatase Total Creatine Kinase Troponin I High Sens Total Protein Albumin Globulin Albumin/Globulin Ratio Procalcitonin TSH Urine Color Yellow Urine Appearance Clear Urine pH 6.5 Ur Specific [place] 1.014 Urine Protein 1+ H Urine Glucose (UA) Negative Urine Ketones 1+ H Urine Blood 3+ H Urine Nitrite Negative Urine Bilirubin Negative Urine Urobilinogen Negative Ur Leukocyte Esterase Negative Urine WBC (Auto) 0-5 Urine RBC (Auto) 6-10 H U Hyaline Cast (Auto) 11-20 H U Epithel Cells (Auto) 0-2 Urine Bacteria (Auto) None Seen Adenovirus (PCR) Not Detected B. pertussis DNA (PCR) Not Detected B.parapertussis DNA PCR Not Detected C. pneumoniae DNA (PCR) Not Detected Coronavirus OC43 (PCR) Not Detected Coronavirus HKU1 (PCR) Not Detected Coronavirus 229E (PCR) Not Detected SARS-CoV-2 (PCR) Not Detected Coronavirus NL63 (PCR) Not Detected Human Metapneumovir PCR Not Detected Influenza Type A (PCR) Not Detected Influenza Type B (PCR) Not Detected M. pneumoniae (PCR) Not Detected Parainfluenza 1 (PCR) Not Detected Parainfluenza 2 (PCR) Not Detected Parainfluenza 3 (PCR) Not Detected Parainfluenza 4 (PCR) Not Detected RSV (PCR) Not Detected Entero/Rhino (PCR) Not Detected Coding Level of Care Code 79928 CRITICAL CARE 1ST 30-74M Diagnoses Atrial fibrillation with rapid ventricular response I48.91 Volume depletion E86.9 Hypomagnesemia E83.42 Acute kidney injury N17.9 Lactic acidosis E87.20 Hypothermia, initial encounter T68.XXXA Encounter type: initial encounter Non-traumatic rhabdomyolysis M62.82 Encounter type: initial encounter Closed fracture of twelfth thoracic vertebra, unspecified fracture morphology, initial encounter S22.089A Encounter type: initial encounter Thoracic vertebra fracture level: T12 Fracture type: closed Fracture morphology: unspecified fracture morphology Time Spent (min) 55 (6) Hypothermia Encounter type: initial encounter Qualified Code(s): T68.XXXA - Hypothermia, initial encounter (7) Rhabdomyolysis Encounter type: initial encounter (8) Thoracic vertebral fracture Encounter type: initial encounter Thoracic vertebra fracture level: T12 F racture type: closed Fracture morphology: unspecified fracture morphology Qualified Code(s): S22.089A - Unspecified fracture of T11-T12 vertebra, initial encounter for closed fracture
[2025-02-09] MEDS: POTASSIUM CHLORIDE CRTAB 20 MEQ TABCR PO STA (14:24)
[2025-02-09] MEDS ORDERED: POTASSIUM CHLORIDE / WTR 10 MEQ/100 ML PLCT IV SCH (14:30)
[2025-02-09 14:53] LABS: BUN Creatinine Ratio 17.5 (10-20); Calcium 8.7 mg/dl (8.6-10.3); Creatinine Clr Calc Pharmacy 48.6 ml/min; Potassium 2.7 mmol/L (3.5-5.1)
[2025-02-09] MEDS ORDERED: Heparin IV Adult Wt-Based Low-Dose *NO* INITIAL Bolus Protocol IV STA (15:20)
--- NOTE | 2025-02-09 15:27 | XRay Report ---
XR knee RT 1 or 2V routine CLINICAL HISTORY: R knee pain s/p fall COMPARISON: 09/20/2024 FINDINGS: Stable osteoarthritis. Stable mild depression of the medial tibial plateau and subchondral cysts. No acute fracture or dislocation seen. There is a trace joint effusion. IMPRESSION: Stable exam. No acute fracture seen. ACT 112: Negative or not required by law. Electronically signed by: Charlie Lees M.D. 02/09/2025 3:26 PM
[2025-02-09] MEDS: PIPERACILLIN/TAZOBACTAM 4.5 GM/100 ML BAG IV ONE (15:48)
[2025-02-09] MEDS: POTASSIUM CHLORIDE 20 MEQ/15 ML UDC PO STA (16:03)
[2025-02-09] MEDS: ICU Protocol for HYPERglycemia SCH (16:59)
[2025-02-09] MEDS: PANTOprazole 40 MG/10 ML SYR IV SCH (17:15)
[2025-02-09] MEDS: HEPARIN 25000 UNIT/500 ML D5W 25,000 UNITS/500 ML BAG IV SCH (17:16)
[2025-02-09] MEDS: METOPROLOL TARTRATE 1 MG/ML VIAL IV SCH (17:23)
[2025-02-09] MEDS: LACTATED RINGER'S 1,000 ML IV SCH (17:24)
[2025-02-09 18:50] LABS: iSTAT Creatinine 1.9 mg/dl (0.6-1.3); iSTAT Hemoglobin 19.7 g/dl (14.0-18.0); iSTAT Ionized Calcium 1.08 mmol/l (1.12-1.32); iSTAT Potassium 2.4 mmol/L (3.3-5.0)
[2025-02-09] MEDS: PIPERACILLIN/TAZOBACTAM 4.5 GM/100 ML BAG IV SCH (20:48)
[2025-02-09 20:56] LABS: BUN Creatinine Ratio 16.8 (10-20); Calcium 8.4 mg/dl (8.6-10.3); Creatinine Clr Calc Pharmacy 51.4 ml/min; Potassium 4.3 mmol/L (3.5-5.1)
[2025-02-09] MEDS ORDERED: HEPARIN SOD 5,000 UNIT/0.5 ML VIAL SQ SCH (21:00)
[2025-02-10 01:22] LABS: ANTI-Xa, UFH(UnfractionatedHep 0.47 IU/ml (0.3-0.7)
[2025-02-10] MEDS: METOPROLOL TARTRATE 1 MG/ML VIAL IV PRN (02:45)
--- NOTE | 2025-02-10 04:54 | Electrocardiogram Report ---
Test Reason : Blood Pressure : */* mmHG Vent. Rate : 161 BPM Atrial Rate : * BPM P-R Int : * ms QRS Dur : 74 ms QT Int : 298 ms P-R-T Axes : * -38 93 degrees QTcB Int : 487 ms Atrial fibrillation with rapid ventricular response Left axis deviation Incomplete right bundle branch block Nonspecific ST abnormality Abnormal ECG When compared with ECG of 22-Sep-2024 06:20, Atrial fibrillation has replaced Sinus rhythm Vent. rate has increased by 81 bpm Confirmed by Talha Lund ([id number]) on 02/10/2025 4:54:19 AM Referred By: REFERRED SELF Confirmed By: Talha Lund
[2025-02-10 05:15] LABS: Hematocrit (blood only) 44.7 % (42.0-52.0); Hemoglobin 15.8 g/dl (14.0-18.0); Mean Corpuscular Hemoglobin 32.2 pg (25.0-34.0); Mean Corpuscular Hgb Conc 35.3 g/dL (32.0-36.0); Mean Platelet Volume 10.3 fL (9.4-12.4); Platelet Count 124 K/uL (130-400); RDW Coefficient of Variation 15.1 % (11.5-14.5); RDW Standard Deviation 49.9 fL (36.4-46.3); Red Blood Count 4.91 M/uL (4.70-6.10); White Blood Count 10.82 K/ul (4.8-10.8)
[2025-02-10 05:27] LABS: Basophils # (auto) 0.01 K/uL (0.00-0.20); Basophils % (auto) 0.1 %; Immature Granulocytes # (auto) 0.07 K/uL (0.01-0.20); Immature Granulocytes % (auto) 0.6 %; Lymphocytes # (auto) 0.43 K/uL (1.20-3.40); Monocytes # (auto) 0.59 K/uL (0.11-0.59); Monocytes % (auto) 5.5 %; Neutrophils # (auto) 9.72 K/uL (1.40-6.50); Neutrophils % (auto) 89.8 %
[2025-02-10 05:28] LABS: Albumin Globulin Ratio 1.1 (0.9-2); Albumin Level 3.1 gm/dl (3.4-5.0); BUN Creatinine Ratio 16.8 (10-20); Bilirubin,Total 0.5 mg/dl (0.2-1.0); Calcium 8.3 mg/dl (8.6-10.3); Chol HDL Ratio 2.6 (0-5); Creatinine Clr Calc Pharmacy 60.6 ml/min; Globulin 2.7 gm/dl (2.5-4.0); Magnesium 2.3 mg/dl (1.7-2.4); Phosphorus 2.3 mg/dl (2.5-4.9); Potassium 3.4 mmol/L (3.5-5.1); Total Protein 5.8 gm/dl (6.0-8.3)
[2025-02-10 05:30] LABS: ANTI-Xa, UFH(UnfractionatedHep 0.64 IU/ml (0.3-0.7)
[2025-02-10 05:33] LABS: Troponin I High Sensitivity 234.2 pg/ml (0-20)
[2025-02-10] MEDS ORDERED: SODIUM PHOSPHATE 3 MMOL/1 ML INFUSION IV STA (05:48)
[2025-02-10] MEDS: POTASSIUM CHLORIDE / WTR 10 MEQ/100 ML PLCT IV SCH (06:41)
[2025-02-10] MEDS: SODIUM PHOSPHATE 15 MMOL in SODIUM CHLORIDE 0.9% 250 ML IV ONE (06:41)
[2025-02-10 07:10] LABS: Estimated Average Glucose 123 mg/dl; Hemoglobin A1C 5.9 % (4.5-5.6)
[2025-02-10] MEDS: ICU ELECTROLYTE REPLACEMENT PROTOCOL SCH (07:23)
--- NOTE | 2025-02-10 07:34 | Hospitalist Progress Note ---
Date of Service February 10, 2025 Assessment & Plan (1) Atrial fibrillation with rapid ventricular response: (2) Hypothermia: (3) Lactic acidosis: (4) Acute kidney injury: (5) Fall: (6) Thoracic vertebral fracture: (7) Rhabdomyolysis: (8) Aneurysmal dilatation: (9) Esophagitis: (10) Hypokalemia: Plan Mr. Mott is a 74y/o gentleman with PMHx significant for HLD, HTN, left vertebral artery stenosis, first-degree AV block, GERD, IBS with diarrhea, cervical DDD, chronic neck pain, history of migraines, acute vestibular syndrome, history of diverticular abscess and perforation s/p partial colectomy and subsequent reversal and FILIBERTO was admitted to ICU 02/09 for hemodynamic instability iso AFib with RVR potentially 2/2 presumed sepsis. Patient now hemodynamically stable, likely downgrade to PCU at this time #Acute metabolic encephalopathy likely delirium suspect underlying cognitive impairment likely iso critical illness TSH 0.4 will add b12 and folate delirium precautions plan for repeat ct if neurologic decline iso heparin drip and recent unwitnessed falls #Possible Sepsis, infectious work up negative thus far #Hypovolemic shock #Hypothermia CT abd pelvis no abnormality outside of compression fracture at T12, +/- duodenitis v artifact; chest CT with prox/distal esophageal thickening hypotensive with lactic acidosis, improving with fluid resuscitation UA negative, biofire negative, MRSA negative 02/09 blood cultures pending no pressors required Remains in ICU for hemodynamic monitoring IVF 125cc/hr at this time Zosyn empirically for now #Transaminitis, iso hypovolemia and rhabdo continue aggressive IVF hold statin trend lfts #Atrial fibrillation with RVR Patient is s/p cardioversion x 3 aggressive lyte replacement metoprolol 2.5 q6 hours formerly [facility] Cardiology on consult #HTN previously on carvedilol 3.125 mg twice daily for rate iso PACs and blood pressure control holding home lisinopril #Mild Rhabdomyolysis #Elevated Troponin likely demand and 2/2 CK elevation CK 2343 up to 2676 Aggressive IVF, trend CK until downtrend #Possible esophagitis/duodenitis on imaging Continue pantoprazole IV BID GI consulted: reviewed recommendations, no EGD at this time dysphagia screen ordered. #YOU CR 1.9 on admission, downtrending with fluid resuscitation continue to trend bmp #Acute compression fracture T12 #Mechanical fall Chest CT/CTAP noting an acute vertebral body compression fracture at T12. R & L knee XR with no evidence of fracture. Trace joint effusion, mild osteoarthritis. Ortho spine: Recommendations are for mobilization out of bed, if patient complains of increasing back pain, may apply a thoracolumbar brace plan to obtain upright radiographs of the thoracolumbar junction in the next several days after the patient has mobilized # Aneurysmal dilatation: CTAP: Aneurysmal dilatation of the ascending aorta measuring up to 4.7cm. Follow up OP #HLD hold statin, resume as transaminitis resolves DVT Prophylaxis:heparin drip Code Status: FULL CODE - As per discussion with patient's brotherYamil. PCP: Frank Crwoder MD Admission and Anticipated Discharge Date Admission Date: February 09, 2025 Subjective Evalauted at bedside, awake alert and oriented to year, self, location unaware of situation/circumstances leading up to admission, focused on obtaining a calendar--denies any acute concerns, but focused on "date" and difficult to redirect no focal deficits appreciated Physical Exam Constitutional: WD/WN, vitals as above Respiratory: normal respiratory effort, lungs clear to auscultation Cardiovascular: tachycardic, seemingly regular Neurologic: PERRL, EOMI, accommodation nl, no face palsy, no dysarthria Results & Data Results & Data Vital Signs (Past 12 Hours) Vital Signs Temp Pulse Resp BP Pulse Ox 02/10/25 06:01 141/75 H 02/10/25 06:01 141/75 H 02/10/25 06:01 141/75 H 02/10/25 06:01 141/75 H 02/10/25 06:00 36.7 C 102 H 19 96 02/10/25 05:28 99 H 153/99 H 02/10/25 05:13 118 H 153/99 H 02/10/25 05:09 36.8 C 107 H 21 96 02/10/25 05:00 153/99 H 02/10/25 05:00 153/99 H 02/10/25 05:00 153/99 H 02/10/25 04:54 36.9 C 117 H 20 95 02/10/25 04:00 131/82 02/10/25 04:00 131/82 02/10/25 04:00 131/82 02/10/25 04:00 36.8 C 110 H 16 96 02/10/25 03:08 36.8 C 114 H 16 95 02/10/25 03:00 137/80 02/10/25 03:00 100 H 137/80 02/10/25 02:45 122 H 142/88 H 02/10/25 02:29 36.7 C 107 H 15 95 02/10/25 02:17 36.7 C 115 H 15 95 02/10/25 01:11 36.7 C 133 H 15 95 02/10/25 01:00 160/83 H 02/10/25 00:20 36.6 C 102 H 15 94 02/10/25 00:17 36.6 C 108 H 18 95 02/10/25 00:01 139/105 H 02/10/25 00:00 113 H 02/09/25 23:50 36.6 C 103 H 18 96 02/09/25 23:49 105 H 139/105 H 02/09/25 23:34 120 H 151/89 H 02/09/25 23:11 36.6 C 114 H 16 98 02/09/25 23:00 151/89 H 02/09/25 22:59 36.6 C 112 H 19 99 02/09/25 22:00 36.6 C 106 H 18 98 02/09/25 21:12 36.7 C 109 H 21 98 02/09/25 21:00 146/80 H 02/09/25 20:48 36.6 C 116 H 19 98 02/09/25 20:02 150/94 H 02/09/25 20:00 36.6 C 106 H 24 96 Laboratory Results Short CBC 02/09/25 02/10/25 Range/Units 10:36 04:56 WBC 10.77 10.82 H (4.8-10.8) K/ul Hgb 19.1 H 15.8 D (14.0-18.0) g/dl Hct 54.0 H 44.7 (42.0-52.0) % Plt Count 169 124 L (130-400) K/uL BMP 02/09/25 02/09/25 02/09/25 10:36 12:12 12:52 Sodium 140 TNP 143 Potassium 2.7 L TNP 2.6 L Chloride 96 L 107 Carbon Dioxide 20 L 23 BUN 23 20 Creatinine 1.79 H 1.27 D Glucose 139 H 136 H Calcium 10.0 7.5 L D 02/09/25 02/09/25 02/09/25 14:17 19:51 19:51 Sodium 142 137 Potassium 2.7 L 4.3 D 3.9 Chloride 105 103 Carbon Dioxide 21 24 BUN 22 20 Creatinine 1.26 1.19 Glucose 134 H 172 H Calcium 8.7 8.4 L 02/10/25 04:56 Sodium 137 Potassium 3.4 L Chloride 102 Carbon Dioxide 28 BUN 17 Creatinine 1.01 Glucose 143 H Calcium 8.3 L Cardiac Enzymes 02/09/25 02/10/25 Range/Units 10:36 04:56 Total Creatine Kinase 2343 H 2676 H (30-223) U/L Liver Function 02/09/25 02/10/25 Range/Units 10:36 04:56 Total Bilirubin 0.8 0.5 (0.2-1.0) mg/dl AST 48 H 74 H (13-39) U/L ALT 18 22 (7-52) U/L Alkaline Phosphatase 162 H 115 H (34-104) U/L Albumin 4.3 3.1 L (3.4-5.0) gm/dl Urine 02/09/25 Range/Units Unknown Urine Color Yellow Urine Appearance Clear (Clear) Urine pH 6.5 (4.5-7.5) Ur Specific [place] 1.014 (1.000-1.030) Urine Protein 1+ H (Negative) Urine Glucose (UA) Negative (Negative) Medications Administered Home Medications Medication Instructions Recorded Confirmed Last Taken baclofen 10 mg tablet 10 mg PO TID PRN Muscle Spasm/Neck 02/11/20 02/09/25 Unknown Pain dicyclomine 20 mg tablet 20 mg PO QID PRN Abdominal Pain 02/11/20 02/09/25 Unknown atorvastatin 40 mg tablet 40 mg PO QAM 09/20/24 02/09/25 Unknown oagtpqggto-lpbvnbbdiertx-pldrysdo 1 tab PO Q6H PRN Abdominal 09/20/24 02/09/25 Unknown 50 mg-325 mg-40 mg tablet Pain/Neck Pain lisinopril 5 mg tablet 5 mg PO QAM 09/20/24 02/09/25 Unknown Active Medications Generic Name Dose Route Start Last Admin Trade Name Freq PRN Reason Stop Dose Admin Piperacillin Sod/Tazobactam Sod 4.5 gm in 100 mls @ 25 mls/hr 02/09/25 21:00 02/10/25 05:08 Zosyn IV 02/11/25 20:59 25 mls/hr Q8H ADRIENNE Administration Protocol Pantoprazole Sodium 40 mg in 10 mls @ 5 mls/min 02/09/25 15:10 02/09/25 20:48 Protonix IV 03/11/25 15:09 5 mls/min BID ADRIENNE Administration Heparin Sodium/Dextrose 25,000 units in 500 mls @ 16 mls/hr 02/09/25 15:45 02/10/25 07:19 Heparin 01942 Unit/500 Ml D5w IV 03/11/25 15:44 800 units/hr .Q24H ADRIENNE 16 mls/hr Titration Protocol 800 UNITS/HR Lactated Ringer's 1,000 mls @ 125 mls/hr 02/09/25 16:15 02/10/25 06:41 Lr IV 02/12/25 16:14 0 mls/hr .Q8H ADRIENNE Infusion Potassium Chloride 10 meq in 100 mls @ 100 mls/hr 02/10/25 06:00 02/10/25 06:41 K Dustin / Wtr IV 02/10/25 09:59 100 mls/hr Q1H ADRIENNE Administration Protocol Sodium Phosphate 15 mmol/ 255 mls @ 100 mls/hr 02/10/25 06:30 02/10/25 06:41 Sodium Chloride IV 02/10/25 09:02 100 mls/hr ONE ONE Administration Metoprolol Tartrate 2.5 mg 02/09/25 18:00 02/10/25 05:13 Metoprolol Tartrate 1 Mg/Ml Vial IV 03/11/25 17:59 2.5 mg Q6 ADRIENNE Administration Metoprolol Tartrate 2.5 mg 02/10/25 02:35 02/10/25 02:45 Metoprolol Tartrate 1 Mg/Ml Vial IV 03/12/25 02:34 2.5 mg Q2H PRN Administration HR > 120 sustained Miscellaneous 1 each 02/09/25 16:30 02/09/25 21:23 Icu Protocol For Hyperglycemia N/A 02/11/25 16:29 Not Given ACHS ADRIENNE Miscellaneous 1 each 02/10/25 18:00 02/10/25 07:23 Icu Electrolyte Replacement Protocol N/A 02/17/25 17:59 1 each BID@06,18 [facility] Administration Protocol (2) Hypothermia Encounter type: initial encounter Qualified Code(s): T68.XXXA - Hypothermia, initial encounter (5) Fall Encounter type: initial encounter Qualified Code(s): W19.XXXA - Unspecified fall, initial encounter (6) Thoracic vertebral fracture Encounter type: initial encounter Fracture morphology: unspecified fracture morphology Fracture type: closed Thoracic vertebra fracture level: T12 Qualified Code(s): S22.089A - Unspecified fracture of T11-T12 vertebra, initial encounter for closed fracture (7) Rhabdomyolysis Encounter type: initial encounter
--- NOTE | 2025-02-10 10:42 | Orthopedic Consultation ---
Date of Service February 10, 2025 Assessment & Plan (1) Compression fracture of T12 vertebra: History of Present Illness Reason for Consultation: T12 compressioin fracture noted on CT Requesting Physician: . Attending Physician: Yuly Workman MD 74y/o M with PMHx significant for HLD, HTN, left vertebral artery stenosis, first-degree AV block, GERD, IBS with diarrhea, cervical DDD, chronic neck pain, history of migraines, acute vestibular syndrome, history of diverticular abscess and perforation s/p partial colectomy and subsequent reversal and FILIBERTO who presented to the ED on 02/09/25 via EMS after sustaining a fall at home and was found to be in unstable AFib with RVR. Patient had a T12 compression fracture noted on chest CT. In talking to patient he does not complain of any specific back pain on exam today, no lower extremity symptoms. Exam reveals no pain to palpation in the thoracic and lumbar spine either midline or in the paraspinal musculature. The patient has intact strength for EHL, ankle plantar dorsiflexion hip flexion knee flexion extension strength. CT OF THE CHEST WITHOUT IV CONTRAST 02/09/25 CLINICAL HISTORY: Fall. Altered mental status. COMPARISON STUDY: Chest radiograph September 20, 2024. FINDINGS: Thoracic aorta is suboptimally assessed on unenhanced exam but no mediastinal hematoma is present. There is aneurysmal dilatation of the ascending aorta measuring 4.7 cm. There is moderate aortic valvular calcification. Moderate coronary artery calcification is noted. The heart is mildly enlarged. There is no pneumothorax or pleural effusion. No pulmonary contusion is present. No acute rib fractures are present. There is a mild compression fracture of the superior endplate of T12 with 30% loss of vertebral body height centrally. There is no retropulsion. There is no extension into the posterior elements. There is moderate circumferential wall thickening of the proximal to mid esophagus. There is also wall thickening of the distal esophagus with stranding. IMPRESSION: 1. Acute T12 compression fracture with 30% loss of vertebral body height centrally. No retropulsion. 2. No additional acute traumatic findings within the chest. 3. Proximal and distal esophageal wall thickening. This is nonspecific but favors esophagitis. 4. Aneurysmal dilatation of the ascending aorta measuring up to 4.[address] scan images of the chest from February 09, 2025 at [facility], this my separate interpretation, this reveals a limited amount of superior endplate compression fracture approximately 25%, no retropulsion into the canal. The patient has some limited degenerative changes throughout the thoracic spine with increased kyphosis in the superior aspect, this is in comparison to lumbar CT scan from September 20, 2024. Impression: T12 superior endplate compression fracture with minimal loss of height, new finding relative to lumbar CT scan from September 20, 2024 ap proaching 5 months ago. Recommendations: As the patient was not complaining of any pain in his back and appeared to be answering questions appropriately, and was nontender to palpation in this region, the fracture may be subacute to some degree, now several months old and is in the healing process. Recommendations are for mobilization out of bed, if patient complains of increasing back pain, may apply a thoracolumbar brace but I would recommend holding on that for now until the other medical issues are improved. May obtain upright radiographs of the thoracolumbar junction in the next several days after the patient has mobilized, we will hold on bracing for now until the patient is more ambulatory. Allergies Allergy/AdvReac Type Severity Reaction Status Date / Time shrimp AdvReac Unknown GI SYMPTOMS Verified 02/11/20 06:09 Home Medications Medication Instructions Recorded Confirmed Type baclofen 10 mg tablet 10 mg PO TID PRN Muscle Spasm/Neck 02/11/20 02/09/25 History Pain dicyclomine 20 mg tablet 20 mg PO QID PRN Abdominal Pain 02/11/20 02/09/25 History atorvastatin 40 mg tablet 40 mg PO QAM 09/20/24 02/09/25 History pfffcenzba-prkqoifrjeyee-lnbymkrk 1 tab PO Q6H PRN Abdominal 09/20/24 02/09/25 History 50 mg-325 mg-40 mg tablet Pain/Neck Pain lisinopril 5 mg tablet 5 mg PO QAM 09/20/24 02/09/25 History Past Med/Surg History Problem List (Updated 02/10/25 @ 10:54 by Lui Sofia MD) Compression fracture of T12 vertebra Esophagitis Aneurysmal dilatation Rhabdomyolysis (Acute) Thoracic vertebral fracture Fall (Acute) Acute kidney injury (Acute) Lactic acidosis Hypothermia (Acute) Hypokalemia (Acute) Hypotension (Acute) Atrial fibrillation with rapid ventricular response (Acute) Volume depletion Thrombocytopenia (Acute) Elevated troponin (Acute) Weakness (Acute) Tachycardia Bilateral leg weakness Elevated troponin Unwitnessed fall Acute vestibular syndrome Stroke-like symptoms History of colostomy reversal Hypomagnesemia (Acute) HTN (hypertension) (Chronic) Slurred speech (Acute) Ataxia (Acute) Social History Smoking Status: Never smoker Second Hand Exposure: No; Do You Dip or Chew Tobacco: No; Tobacco Cessation Education Requested by Patient: No Hx Alcohol Use: No Hx Substance Use: No Preferred Language: Greenlandic Communication Ability: Effective 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 Physical Exam . Results & Data Results & Data Laboratory Results . Diagnostic Findings . PG Care Time/CCT Total # of Minutes Spent Total Time Spent with Patient: Total time spent is greater than 50% in coordination of care (as documented) at patient's floor/unit and/or counseling patient: Coding Level of Care Code 65307 IN/OBS CONSULT LVL 3,45M Diagnoses Compression fracture of T12 vertebra S22.080A
--- NOTE | 2025-02-10 11:01 | Gastrointestinal Consultation ---
Date of Consultation February 10, 2025 Assessment & Plan (1) Esophagitis: Potential esophagitis based on CT findings. Though as the radiologist notes the findings are nonspecific. Patient currently denying any GI or esophageal symptoms though history is little bit suspect as he appears a little confused. Will reassess tomorrow. A dysphagia screen has been ordered. Nursing notes that he is swallowing liquids fine. Patient is currently on anticoagulation because of his rapid A-fib. Hold on EGD at this time. Continue PPI. I think this can be once per day. Will reassess tomorrow. (2) Atrial fibrillation with rapid ventricular response: (3) Rhabdomyolysis: Increased liver function test may reflect the rhabdomyolysis he also might have a mild ischemic hepatitis. Recheck LFTs tomorrow. History of Present Illness Reason for Consultation: Esophageal wall thickening on CT Attending Physician: Yuly Workman MD History of Present Illness 74-year-old gentleman who was admitted from home after a fall. Patient was in rapid A-fib on admission unsuccessful cardioversion. As a part of his workup he had a CT scan of the abdomen pelvis which showed a ventral hernia and right wall abdominal hernia containing nonobstructed bowel loops. Subsequent CT scan of the chest which was done without oral contrast. Suggested possibility of proximal distal esophageal wall thickening. Nonspecific but favors esophagitis per radiology. Patient currently denies any esophageal symptoms. States he eats normally. Without dysphagia. Chart suggest some nausea in the last week or so, however this follows the of a very close associate.. Chart review also notes a history of GERD. There is also history of diverticular abscesses perforation. Patient is orientated to person place and time. But he does not seem to recall the real reason he is here. States he came in to visit a friend. Notes show that that he was brought into the emergency department by EMS. Patient currently on twice daily PPI therapy since admission. No PPIs at home.. He does not recall ever having an upper scope done. States he has had a colonoscopy he does not recall when Allergies Allergy/AdvReac Type Severity Reaction Status Date / Time shrimp AdvReac Unknown GI SYMPTOMS Verified 02/11/20 06:09 Home Medications Medication Instructions Recorded Confirmed Type baclofen 10 mg tablet 10 mg PO TID PRN Muscle Spasm/Neck 02/11/20 02/09/25 History Pain dicyclomine 20 mg tablet 20 mg PO QID PRN Abdominal Pain 02/11/20 02/09/25 History atorvastatin 40 mg tablet 40 mg PO QAM 09/20/24 02/09/25 History czxvkifpwr-iczixmzvpwkfz-rrbkgwth 1 tab PO Q6H PRN Abdominal 09/20/24 02/09/25 History 50 mg-325 mg-40 mg tablet Pain/Neck Pain lisinopril 5 mg tablet 5 mg PO QAM 09/20/24 02/09/25 History Patient History Social History Smoking Status: Never smoker Second Hand Exposure: No; Do You Dip or Chew Tobacco: No; Tobacco Cessation Education Requested by Patient: No Hx Alcohol Use: No Hx Substance Use: No Preferred Language: Eritrean Communication Ability: Effective Specialty Molder Required: No Beliefs That Will Affect Care: None Current Living Situation: Alone Other Information That Helps Us Care for You: No Feels Safe at Home: Yes Safety Concerns: Feels Safe At This Time Assistive Devices: Cane, Denture - Upper, Denture - Lower and Glasses Review of Systems Review of Systems: Somewhat suspect. Peers to have some level of confusion. Review of systems as per admitting H&P. Other than GI GI denies heartburn indigestion swallowing difficulties dysphagia. Does not know weight loss. He does not smoke or drink alcohol per his report Physical Exam Physical Exam: Patient examined intensive care unit. Seems a little vague. The eyes feel no jaundice Neck revealed no adenopathy or thyroid enlargement. Chest heart exams per chart without change Abdomen hernias as noted. No incarceration tenderness guarding or rebound [employer] no focal neurological changes though again appears somewhat vague. Though he is orientated he could not recall the real reason he was brought in Psych affect normal Exam otherwise neck Results & Data Vital Signs (Past 12 Hours) Vital Signs Temp Pulse Resp BP Pulse Ox 02/10/25 10:37 109 H 136/82 02/10/25 10:16 129 H 138/107 H 02/10/25 10:15 138/107 H 02/10/25 10:12 36.8 C 125 H 18 98 02/10/25 10:06 36.9 C 123 H 26 H 95 02/10/25 10:01 145/118 H 02/10/25 09:48 36.9 C 117 H 19 94 02/10/25 09:42 36.9 C 117 H 25 H 96 02/10/25 09:03 36.9 C 114 H 25 H 96 02/10/25 09:01 157/94 H 02/10/25 08:06 36.8 C 113 H 21 96 02/10/25 08:01 132/71 02/10/25 07:00 143/79 H 02/10/25 06:51 36.7 C 104 H 23 95 02/10/25 06:01 141/75 H 02/10/25 06:01 141/75 H 02/10/25 06:01 141/75 H 02/10/25 06:01 141/75 H 02/10/25 06:00 36.7 C 102 H 19 96 02/10/25 05:28 99 H 153/99 H 02/10/25 05:13 118 H 153/99 H 02/10/25 05:09 36.8 C 107 H 21 96 02/10/25 05:00 153/99 H 02/10/25 05:00 153/99 H 02/10/25 05:00 153/99 H 02/10/25 04:54 36.9 C 117 H 20 95 02/10/25 04:00 131/82 02/10/25 04:00 131/82 02/10/25 04:00 131/82 02/10/25 04:00 36.8 C 110 H 16 96 02/10/25 03:08 36.8 C 114 H 16 95 02/10/25 03:00 137/80 02/10/25 03:00 100 H 137/80 02/10/25 02:45 122 H 142/88 H 02/10/25 02:29 36.7 C 107 H 15 02/10/25 02:17 36.7 C 115 H 15 95 02/10/25 01:11 36.7 C 133 H 15 02/10/25 01:00 160/83 H 02/10/25 00:20 36.6 C 102 H 15 94 02/10/25 00:17 36.6 C 108 H 18 95 02/10/25 00:01 139/105 H 02/10/25 00:00 113 H 02/09/25 23:50 36.6 C 103 H 18 96 02/09/25 23:49 105 H 139/105 H 02/09/25 23:34 120 H 151/89 H 02/09/25 23:11 36.6 C 114 H 16 98 02/09/25 23:00 151/89 H 02/09/25 22:59 36.6 C 112 H 19 99 PG Care Time/CCT Total # of Minutes Spent Total Time Spent with Patient: Total time spent is greater than 50% in coordination of care (as documented) at patient's floor/unit and/or counseling patient: Coding Level of Care Code 37136 INT INP/OBS CARE 2/55MIN Diagnoses Esophagitis K20.90 Atrial fibrillation with rapid ventricular response I48.91 Non-traumatic rhabdomyolysis M62.82 Encounter type: initial encounter (3) Rhabdomyolysis Encounter type: initial encounter
--- NOTE | 2025-02-10 11:35 | Cardiology Progress Note ---
Date of Service February 10, 2025 Assessment & Plan (1) Volume depletion: (2) Hypotension: (3) Hypokalemia: (4) Atrial fibrillation with rapid ventricular response: Plan Presentation with hypovolemic shock and mild rhabdomyolysis, presumed sepsis with associated acute metabolic encephalopathy, atrial fibrillation with rapid ventricular response, suspected underlying dementia Paroxysmal atrial fibrillation with rapid ventricular response. Unsuccessful cardioversion x 3, subsequently converting to sinus rhythm following administration of IV metoprolol. Currently prescribed IV Lopressor 2.5 mg every 6 hours. Hypotension resolved. Transition to oral metoprolol tartrate 25 mg twice a day, utilizing IV lopressor as needed. Patient prescribed IV heparin. Consider MRI imaging of the brain noting recent fall, neurologic status, PAF. At this point, risks of long-term anticoagulation appear greater then the benefit. Elevated troponin. Resting echocardiography with hyperdynamic systolic function, without regional wall motion abnormalities. Suspect demand ischemia given critical illness. Recommend medical management. Noting elevated troponin as well as coronary and aortic atherosclerosis, patient would benefit from aspirin 81 mg/day however will hold off on now given current use of IV heparin and above. Prolonged QTc. Electrolytes being repleted. Beta-lorie therapy as above Ascending thoracic aortic aneurysm. 4.7 cm via imaging this admission. Outpa tient follow-up. Aortic stenosis, mild via February 2025 resting echocardiogram. Outpatient follow- up. Dyslipidemia. Statin (atorvastatin 40 mg/day) on hold due to mild rhabdomyolysis post fall Admission and Anticipated Discharge Date Admission Date: February 09, 2025 Supervising Physician Co-Signing Physician Notes Attending attestation: Case reviewed with the advanced practitioner. I have personally performed a history and physical examination on the patient. I have reviewed the advanced practitioner's documentation on the date of service referenced in note, and I agree with, and take responsibility for the plan of care. Patient able to tell me that he was at [facility]. Denies subjective complaint. Expresses concerned about cost of medications and I assured him that we will take this into account. He is tolerating transition to oral metoprolol. Sinus rhythm with PACs noted on telemetry and EKG. Continue unfractioned heparin for now for stroke prophylaxis with plans to consider transition to Eliquis versus Coumadin depending upon cost consideration.. Santos Walter, DO Subjective Patient seen and examined. Chart, medications, telemetry reviewed. "I am not supposed to be here. It is not May 10th. I do not know where I am." No chest pain, difficulty breathing, or palpitations Patient not currently a reliable source of information I's/O's +5,769 mL overall. Review of Systems Review of Systems: Unable to be obtained Physical Exam Physical Exam: General: NAD. HENT: Normocephalic. Atraumatic. Eyes: PER. Conjunctiva pink, sclera clear. Neck: No JVD. Heart: Irregular, 100 bpm. Grade I-II/ systolic murmur. No diastolic murmur. No rub. Lungs: Clear to auscultation anteriorly. Abdomen: +BS. No organomegaly. Extremities: No cyanosis. Mild edema. Neuro: Alert to person but not to place or time. + Tremor Results & Data Vital Signs (Past 12 Hours) Vital Signs Temp Pulse Resp BP Pulse Ox 02/10/25 10:37 109 H 136/82 02/10/25 10:16 129 H 138/107 H 02/10/25 10:15 138/107 H 02/10/25 10:12 36.8 C 125 H 18 98 02/10/25 10:06 36.9 C 123 H 26 H 95 02/10/25 10:01 145/118 H 02/10/25 09:48 36.9 C 117 H 19 94 02/10/25 09:42 36.9 C 117 H 25 H 96 02/10/25 09:03 36.9 C 114 H 25 H 96 02/10/25 09:01 157/94 H 02/10/25 08:06 36.8 C 113 H 21 96 02/10/25 08:01 132/71 02/10/25 08:00 126 H 02/10/25 07:00 143/79 H 02/10/25 06:51 36.7 C 104 H 23 95 02/10/25 06:01 141/75 H 02/10/25 06:01 141/75 H 02/10/25 06:01 141/75 H 02/10/25 06:01 141/75 H 02/10/25 06:00 36.7 C 102 H 19 96 02/10/25 05:28 99 H 153/99 H 02/10/25 05:13 118 H 153/99 H 02/10/25 05:09 36.8 C 107 H 21 96 02/10/25 05:00 153/99 H 02/10/25 05:00 153/99 H 02/10/25 05:00 153/99 H 02/10/25 04:54 36.9 C 117 H 20 95 02/10/25 04:00 131/82 02/10/25 04:00 131/82 02/10/25 04:00 131/82 02/10/25 04:00 36.8 C 110 H 16 96 02/10/25 03:08 36.8 C 114 H 16 95 02/10/25 03:00 137/80 02/10/25 03:00 100 H 137/80 02/10/25 02:45 122 H 142/88 H 02/10/25 02:29 36.7 C 107 H 15 95 02/10/25 02:17 36.7 C 115 H 15 95 02/10/25 01:11 36.7 C 133 H 15 95 02/10/25 01:00 160/83 H 02/10/25 00:20 36.6 C 102 H 15 94 02/10/25 00:17 36.6 C 108 H 18 95 02/10/25 00:01 139/105 H 02/10/25 00:00 113 H 02/09/25 23:50 36.6 C 103 H 18 96 02/09/25 23:49 105 H 139/105 H 02/09/25 23:34 120 H 151/89 H Laboratory Results Cardiac Enzymes 02/09/25 02/09/25 02/09/25 Range/Units 10:36 12:12 14:23 AST 48 H (13-39) U/L Troponin I High Sens 284.2 H* 210.1 H* D 222.4 H* (0-20) pg/ml 02/09/25 02/10/25 02/10/25 Range/Units 19:51 00:30 04:56 AST 74 H (13-39) U/L Troponin I High Sens 197.8 H* 204.5 H* 234.2 H* (0-20) pg/ml 02/10/25 Range/Units 07:47 AST (13-39) U/L Troponin I High Sens 228.3 H* (0-20) pg/ml Coagulation 02/09/25 Range/Units 10:36 PT 14.1 H (9.0-12.0) Seconds Lipids 02/10/25 Range/Units 04:56 Triglycerides 127 (0-150) mg/dl Cholesterol 174 (0-200) mg/dl HDL Cholesterol 68 mg/dl Cholesterol/HDL Ratio 2.6 (0-5) CBC 02/10/25 Range/Units 04:56 WBC 10.82 H (4.8-10.8) K/ul RBC 4.91 (4.70-6.10) M/uL Hgb 15.8 D (14.0-18.0) g/dl Hct 44.7 (42.0-52.0) % Plt Count 124 L (130-400) K/uL Neut # (Auto) 9.72 H (1.40-6.50) K/uL Lymph # (Auto) 0.43 L (1.20-3.40) K/uL [place] # (Auto) 0.59 (0.11-0.59) K/uL Eos # (Auto) 0.00 (0.00-0.50) K/uL Baso # (Auto) 0.01 (0.00-0.20) K/uL Comprehensive Metabolic Panel 02/09/25 02/09/25 02/09/25 Range/Units 10:36 12:12 12:52 Sodium TNP 143 Potassium TNP 2.6 L Chloride 107 (98-107) mmol/L Carbon Dioxide 23 (21-32) mmol/L BUN 20 (6-23) mg/dl Creatinine 1.27 D (0.6-1.4) mg/dl Glucose 136 H (70-99(Fasting)) mg/dl Calcium 7.5 L D (8.6-10.3) mg/dl AST 48 H (13-39) U/L ALT 18 (7-52) U/L Alkaline Phosphatase 162 H (34-104) U/L Total Protein 7.5 (6.0-8.3) gm/dl Albumin 4.3 (3.4-5.0) gm/dl 02/09/25 02/09/25 02/09/25 Range/Units 14:17 19:51 19:51 Sodium 142 137 Potassium 2.7 L 4.3 D 3.9 Chloride 105 103 (98-107) mmol/L Carbon Dioxide 21 24 (21-32) mmol/L BUN 22 20 (6-23) mg/dl Creatinine 1.26 1.19 (0.6-1.4) mg/dl Glucose 134 H 172 H (70-99(Fasting)) mg/dl Calcium 8.7 8.4 L (8.6-10.3) mg/dl AST (13-39) U/L ALT (7-52) U/L Alkaline Phosphatase (34-104) U/L Total Protein (6.0-8.3) gm/dl Albumin (3.4-5.0) gm/dl 02/10/25 Range/Units 04:56 Sodium 137 Potassium 3.4 L Chloride 102 (98-107) mmol/L Carbon Dioxide 28 (21-32) mmol/L BUN 17 (6-23) mg/dl Creatinine 1.01 (0.6-1.4) mg/dl Glucose 143 H (70-99(Fasting)) mg/dl Calcium 8.3 L (8.6-10.3) mg/dl AST 74 H (13-39) U/L ALT 22 (7-52) U/L Alkaline Phosphatase 115 H (34-104) U/L Total Protein 5.8 L D (6.0-8.3) gm/dl Albumin 3.1 L (3.4-5.0) gm/dl Intake and Output 02/09/25 02/10/25 02/10/25 22:59 06:59 14:59 Intake Total 2077.067 / 6068.734 1691.667 / 6068.734 925.066 / 925.066 Output Total 675 / 1075 400 / 1075 150 / 150 Balance 1402.067 / 4993.734 1291.667 / 4993.734 775.066 / 775.066 Intake: IV 1087.067 / 5078.734 1691.667 / 5078.734 725.066 / 725.066 Heparin 27213 Unit/500 ml D5w 33.067 / 133.067 100 / 133.067 91.733 / 91.733 25,000 units In 500 ml @ 800 UNITS/HR 16 mls/hr IV .Q24H [facility] Rx#:[id number] Lactated Ringer's 1,000 ml @ 1491.667 / 1491.667 0 / 0 125 mls/hr IV .Q8H [facility] Rx#: [id number] Magnesium Sulfate / D5w 1 gm In 185 / 185 100 ml @ 50 mls/hr IV Q2H [facility] Rx#:[id number] Piperacillin/Tazobactam 4.5 gm 100 / 200 100 / 200 100 / 100 In 100 ml @ 25 mls/hr IV Q8H [facility] Rx#:[id number] Potassium Chloride / Wtr 10 meq 385 / 385 278.333 / 278.333 In 100 ml @ 100 mls/hr IV Q1H [facility] Rx#:[id number] Sodium Chloride 0.9% 1,000 ml @ 384 / 384 125 mls/hr IV .Q8H [facility] Rx#: [id number] Sodium Phosphate 15 mmol In 255 / 255 Sodium Chloride 0.9% 250 ml @ 100 mls/hr IV ONE ONE Rx#: [id number] Oral 990 / 990 200 / 200 Output: Urine Amount (Catheter) 675 / 1075 400 / 1075 150 / 150 Temp Sensing [place] 675 / 1075 400 / 1075 150 / 150 Other: Weight 80.1 kg Weight Measurement Method Built in [facility] Diagnostic Findings Telemetry review is significantly limited by artifact. Rhythm appears to be sinus/sinus tachycardia with frequent atrial ectopy, short runs of wide-complex tachycardia 3-4, and 5 beats in duration Resting echocardiography February 09, 2025 revealed hyperdynamic LV systolic function, EF greater than 70%, with mild concentric LVH, hyperdynamic RV function, mild aortic valve stenosis.
--- NOTE | 2025-02-10 12:07 | Critical Care Progress Note ---
Date of Service February 10, 2025 Assessment & Plan (1) Atrial fibrillation with rapid ventricular response: (2) Volume depletion: (3) Hypomagnesemia: (4) Acute kidney injury: (5) Lactic acidosis: (6) Hypothermia: (7) Rhabdomyolysis: (8) Thoracic vertebral fracture: Plan Neuro: -Intermittent confusion. Consider MRI brain in the near future if confusion persist. -CT head negative for acute abnormalities. CV: New onset atrial fibrillation with RVR -Start metoprolol 25 mg twice daily -Order hep gtt w/o bolus -Maintain K around 4 and mag 2-3 -Cards following Aneurysmal dilation of the ascending aorta up to 4.7 cm. Will need outpatient follow-up. Hypovolemic shock (improved) -Shock resolved -Lactate resolved -Maintian SBP < 180 and MAP > 65 Pulm: -No acute issues -Maintain SpO2 > 92% -Patient on room air GI: Dysphagia -Speech therapy consult - Advance diet as tolerated. - CT chest revealed proximal and distal esophageal wall thickening favoring esophagitis. : Acute kidney injury related to hypovolemia - YOU resolved. Discontinue IV fluids Hypokalemia; Hypomagnesemia -Monitor and replace - Replace electrolytes as needed Heme: -Monitor CBC qam -Transfuse for Hgb < 7 or if active bleeding Endo: Stress hyperglycemia -BG goal range 140-180 -Insulin as appropriate -TSH WNL. ID: -WBC 10.77 on admission -Hypothermic on presentation to 3 -Blood cultures pending -UA negative -CT chest no signs of pneumonia -Continue empiric Zosyn at this time. Consider deescalation or d/c if appropriate. Prophylaxis: -SCD for mechanical DVT prophylaxis -DVT chemoprophylaxis/anticoagulation with therapeutic heparin gtt -GI prophylaxis not indicated Disposition: Downgrade to PCU. Orders placed. Admission and Anticipated Discharge Date Admission Date: February 09, 2025 Subjective Patient seen examined. A bit confused this morning, but alert and oriented to person and place. Off of vasopressors. Minimal oxygen requirements. Review of Systems Review of Systems: All systems reviewed & are unremarkable except as noted in HPI & below Physical Exam Physical Exam: Constitutional: Patient appears to be of their stated age. Patient is in no apparent distress. Patient is well-developed. Eyes: Pupils are equal round and reactive to light. Conjunctivae are normal. Anicteric sclera. Ears nose, mouth and throat: Mallampati class 2. Normal posterior oropharynx. Uvula is midline. Neck: Trachea is midline. Visual inspection is normal. Respiratory: Mild crackles in the lower lobes. Cardiovascular: Irregularly irregular with mild systolic flow murmur. Gastrointestinal: Normal bowel sounds, soft, nontender and nondistended. No hepatosplenomegaly noted. Musculoskeletal: No cyanosis. Patient is able to move all extremities. Strength is 5 out of 5 in the upper and lower extremities. Skin: No rashes, warm dry and intact. Neurologic: No obvious focal neurological deficits seen. Confused at times Psychiatric: Alert and oriented x3 with a euthymic affect. Results & Data Results & Data Vital Signs (Past 12 Hours) Vital Signs Temp Pulse Resp BP Pulse Ox 02/10/25 10:37 109 H 136/82 02/10/25 10:16 129 H 138/107 H 02/10/25 10:15 138/107 H 02/10/25 10:12 36.8 C 125 H 18 98 02/10/25 10:06 36.9 C 123 H 26 H 95 02/10/25 10:01 145/118 H 02/10/25 09:48 36.9 C 117 H 19 94 02/10/25 09:42 36.9 C 117 H 25 H 96 02/10/25 09:03 36.9 C 114 H 25 H 96 02/10/25 09:01 157/94 H 02/10/25 08:06 36.8 C 113 H 21 96 02/10/25 08:01 132/71 02/10/25 08:00 126 H 02/10/25 07:00 143/79 H 02/10/25 06:51 36.7 C 104 H 23 95 02/10/25 06:01 141/75 H 02/10/25 06:01 141/75 H 02/10/25 06:01 141/75 H 02/10/25 06:01 141/75 H 02/10/25 06:00 36.7 C 102 H 19 96 02/10/25 05:28 99 H 153/99 H 02/10/25 05:13 118 H 153/99 H 02/10/25 05:09 36.8 C 107 H 21 96 02/10/25 05:00 153/99 H 02/10/25 05:00 153/99 H 02/10/25 05:00 153/99 H 02/10/25 04:54 36.9 C 117 H 20 95 02/10/25 04:00 131/82 02/10/25 04:00 131/82 02/10/25 04:00 131/82 02/10/25 04:00 36.8 C 110 H 16 96 02/10/25 03:08 36.8 C 114 H 16 95 02/10/25 03:00 137/80 02/10/25 03:00 100 H 137/80 02/10/25 02:45 122 H 142/88 H 02/10/25 02:29 36.7 C 107 H 15 95 02/10/25 02:17 36.7 C 115 H 15 95 02/10/25 01:11 36.7 C 133 H 15 95 02/10/25 01:00 160/83 H 02/10/25 00:20 36.6 C 102 H 15 94 02/10/25 00:17 36.6 C 108 H 18 95 Coding Level of Care Code 95084 SUB INP/OBS CARE 2/35MIN Diagnoses Atrial fibrillation with rapid ventricular response I48.91 Volume depletion E86.9 Hypomagnesemia E83.42 Acute kidney injury N17.9 Lactic acidosis E87.20 Hypothermia, initial encounter T68.XXXA Encounter type: initial encounter Non-traumatic rhabdomyolysis M62.82 Encounter type: initial encounter Closed fracture of twelfth thoracic vertebra, unspecified fracture morphology, initial encounter S22.089A Encounter type: initial encounter Thoracic vertebra fracture level: T12 Fracture type: closed Fracture morphology: unspecified fracture morphology (6) Hypothermia Encounter type: initial encounter Qualified Code(s): T68.XXXA - Hypothermia, initial encounter (7) Rhabdomyolysis Encounter type: initial encounter (8) Thoracic vertebral fracture Encounter type: initial encounter Thoracic vertebra fracture level: T12 Fracture type: closed Fracture morphology: unspecified fracture morphology Qualified Code(s): S22.089A - Unspecified fracture of T11-T12 vertebra, initial encounter for closed fracture
[2025-02-10 12:25] LABS: Folate (Folic Acid),Ser orPlas 13.23 ng/ml (>5.38)
[2025-02-10] MEDS: OLANZapine 10 MG/2.1 ML SDV IM ONE (12:52)
[2025-02-10] MEDS: OLANZapine 10 MG/2.1 ML SDV IM PRN (12:52)
[2025-02-10] MEDS: METOPROLOL TARTRATE 25 MG TAB PO SCH (12:52)
[2025-02-10] MEDS: OLANZapine 10 MG/2.1 ML SDV IM STA (13:04)
--- NOTE | 2025-02-10 15:09 | CT Scan Report ---
EXAM: CT Head Without Intravenous Contrast INDICATION: Worsening mental status following fall. Patient anticoagulated. TECHNIQUE: Axial computed tomography images of the head/brain without intravenous contrast. Sagittal and/or coronal reformats are provided. Sagittal and coronal reformatted images were created and reviewed. This CT exam was performed using one or more of the following dose reduction techniques: automated exposure control, adjustment of the mA and/or kV according to patient size, and/or use of iterative reconstruction technique. COMPARISON: 09/20/2024 FINDINGS: Limitations: None. Brain and extra-axial spaces: There is age appropriate cortical atrophy and chronic ischemic periventricular white matter hypodensity. No acute infarct, hemorrhage or mass noted. Bones/joints: No acute changes. Soft tissues: No significant abnormality noted. Vasculature: There is moderate to marked atherosclerosis of the intracranial vertebral and carotid arteries. Sinuses: Widely patent bilateral antrectomy defects noted. No acute or chronic sinus disease. Mastoid air cells: No mastoid effusion. Orbits: No significant abnormality noted. IMPRESSION: Cerebral atrophy. No acute changes. ACT 112: N/A Electronically signed by Daja Quijano 02-10-2025 3:09 PM
[2025-02-10] MEDS: METOPROLOL TARTRATE 50 MG TAB PO SCH (19:53)
--- NOTE | 2025-02-11 07:08 | Electrocardiogram Report ---
Test Reason : Blood Pressure : */* mmHG Vent. Rate : 105 BPM Atrial Rate : 105 BPM P-R Int : 178 ms QRS Dur : 84 ms QT Int : 390 ms P-R-T Axes : 72 -39 85 degrees QTcB Int : 515 ms Sinus tachycardia with Premature atrial complexes Left axis deviation Right atrial enlargement Prolonged QT Abnormal ECG When compared with ECG of 09-Feb-2025 16:12, (unconfirmed) Fusion complexes are no longer Present QT has shortened Confirmed by Demetri Olsen ([id number]) on 02/11/2025 7:07:42 AM Referred By: REFERRED SELF Confirmed By: Demetri Olsen
--- NOTE | 2025-02-11 07:17 | Electrocardiogram Report ---
Test Reason : Blood Pressure : */* mmHG Vent. Rate : 120 BPM Atrial Rate : 120 BPM P-R Int : 160 ms QRS Dur : 78 ms QT Int : 340 ms P-R-T Axes : 67 -26 75 degrees QTcB Int : 480 ms Sinus tachycardia with Premature atrial complexes Right atrial enlargement Abnormal ECG When compared with ECG of 10-Feb-2025 05:00, (unconfirmed) No significant change was found Confirmed by Demetri Olsen ([id number]) on 02/11/2025 7:16:43 AM Referred By: REFERRED SELF Confirmed By: Demetri Olsen
--- NOTE | 2025-02-11 07:20 | Hospitalist Progress Note ---
Date of Service February 11, 2025 Assessment & Plan (1) Atrial fibrillation with rapid ventricular response: (2) Hypothermia: (3) Lactic acidosis: (4) Acute kidney injury: (5) Fall: (6) Thoracic vertebral fracture: (7) Rhabdomyolysis: (8) Aneurysmal dilatation: (9) Esophagitis: (10) Hypokalemia: Plan Mr. Mott is a 74y/o gentleman with PMHx significant for HLD, HTN, left vertebral artery stenosis, first-degree AV block, GERD, IBS with diarrhea, cervical DDD, chronic neck pain, history of migraines, acute vestibular syndrome, history of diverticular abscess and perforation s/p partial colectomy and subsequent reversal and FILIBERTO was admitted to ICU 02/09 for hemodynamic instability iso AFib with RVR potentially 2/2 presumed sepsis. Patient was hemodynamically stable and transferred to PCU Spoke to patient's brother who reports patient would not want further extensive measures if survival does not seem likely--plan to discuss further this afternoon once more labs and imaging returns. On 02/11, patient was awake but noted the sensation of "falling" as per nurse report, prior to becoming unconscious when code blue was called. At approximately 0845, compressions were started. Initial rhythm deemed to be PEA arrest. 4 rounds of epi were administered, 1amp bicarb, calcium gluconate. ROSC was obtained and noted to SVT. Amiodarone started. Patient transferred to ICU where Levophed and vasopressin were initiated given MAPs in 30s. Pressures improved with pressor support with MAPS i> 65, however, patient posturing and demonstrating signs of poor neurological recovery. ICU discussed with brother who ultimately decided for patient to be transitioned to comfort measures. #Cardiogentic Shock 2/2 Pulseless electrical Activity, Cardiac Arrest #VDRF s/p ROSC Pressor support per ICU Ventilator management per ICU Transitioned to comfort measures #Acute metabolic encephalopathy likely delirium suspect underlying cognitive impairment likely iso critical illness TSH 0.4, b12 352, folate 13.23 comfort measures #Possible Sepsis, infectious work up negative thus far #Hypovolemic shock #Hypothermia CT abd pelvis no abnormality outside of compression fracture at T12, +/- duodenitis v artifact; chest CT with prox/distal esophageal thickening hypotensive with lactic acidosis, improving with fluid resuscitation UA negative, biofire negative, MRSA negative 02/09 blood cultures NGTD comfort measures Other conditions treated this admission: #Transaminitis, iso hypovolemia and rhabdo continue aggressive IVF hold statin trend lfts #Atrial fibrillation with RVR Patient is s/p cardioversion x 3 aggressive lyte replacement Increased po metoprolol tartrate 50mg Cardiology consulted Amiodarone drip started given SVT/RVR s/p ROSC #prediabetes A1C 5.9% 02/10 #HTN previously on carvedilol 3.125 mg twice daily for rate iso PACs and blood pressure control holding home lisinopril #Mild Rhabdomyolysis #Elevated Troponin likely demand and 2/2 CK elevation CK 2343 up to 2676 #Possible esophagitis/duodenitis on imaging Continue pantoprazole PO GI consulted: reviewed recommendations, no EGD at this time #YOU CR 1.9 on admission, downtrending with fluid resuscitation continue to trend bmp #Acute compression fracture T12 #Mechanical fall Chest CT/CTAP noting an acute vertebral body compression fracture at T12. R & L knee XR with no evidence of fracture. Trace joint effusion, mild osteoarthritis. Ortho spine: Recommendations are for mobilization out of bed, if patient complains of increasing back pain, may apply a thoracolumbar brace plan to obtain upright radiographs of the thoracolumbar junction in the next several days after the patient has mobilized # Aneurysmal dilatation: CTAP: Aneurysmal dilatation of the ascending aorta measuring up to 4.7cm. Follow up OP #HLD hold statin DVT Prophylaxis:heparin discontinued Comfort measures at this time Admission and Anticipated Discharge Date Admission Date: February 09, 2025 Subjective Patient reported to be awake this am Coded around 0850 see below Review of Systems Review of Systems: Unobtainable due to reduced consciousness Physical Exam Constitutional: PE from s/p code blue: unresponsive after ROSC Respiratory: s/p intubation, bilateral breath sounds, mechanical Gastrointestinal (Abdomen): distended, soft nonprotuberant Results & Data Results & Data Vital Signs (Past 12 Hours) Vital Signs Temp Pulse Pulse Resp BP Pulse Ox O2 Del Method 02/11/25 07:14 125 H 02/11/25 03:16 36.6 C 98 H 19 127/68 91 Room Air 02/10/25 23:00 36.9 C 100 H 18 133/88 95 Room Air 02/10/25 21:50 109 H 02/10/25 20:00 Room Air 02/10/25 19:36 36.7 C 123 H 18 123/84 95 Room Air Laboratory Results [facility] 02/11/25 06:38 Sodium 138 Potassium 3.7 Chloride 104 Carbon Dioxide 25 BUN 15 Creatinine 0.88 Glucose 159 H Calcium 8.2 L Cardiac Enzymes 02/11/25 Range/Units 06:38 Total Creatine Kinase 995 H (30-223) U/L Liver Function 02/11/25 Range/Units 06:38 Total Bilirubin 0.6 (0.2-1.0) mg/dl AST 47 H (13-39) U/L ALT 20 (7-52) U/L Alkaline Phosphatase 93 (34-104) U/L Albumin 2.8 L (3.4-5.0) gm/dl Medications Administered Home Medications Medication Instructions Recorded Confirmed Last Taken baclofen 10 mg tablet 10 mg PO TID PRN Muscle Spasm/Neck 02/11/20 02/09/25 Unknown Pain dicyclomine 20 mg tablet 20 mg PO QID PRN Abdominal Pain 02/11/20 02/09/25 Unknown atorvastatin 40 mg tablet 40 mg PO QAM 09/20/24 02/09/25 Unknown [id number] 1 tab PO Q6H PRN Abdominal 09/20/24 02/09/25 Unknown 50 mg-325 mg-40 mg tablet Pain/Neck Pain lisinopril 5 mg tablet 5 mg PO QAM 09/20/24 02/09/25 Unknown Active Medications Generic Name Dose Route Start Last Admin Trade Name Freq PRN Reason Stop Dose Admin Piperacillin Sod/Tazobactam Sod 4.5 gm in 100 mls @ 25 mls/hr 02/09/25 21:00 02/11/25 05:46 Zosyn IV 02/11/25 20:59 25 mls/hr Q8H [facility] Administration Protocol Heparin Sodium/Dextrose 25,000 units in 500 mls @ 16 mls/hr 02/09/25 15:45 02/11/25 06:49 Heparin 01486 Unit/500 Ml D5w IV 03/11/25 15:44 800 units/hr .Q24H [facility] 16 mls/hr Titration Protocol 800 UNITS/HR Metoprolol Tartrate 50 mg 02/10/25 21:00 02/10/25 19:53 Metoprolol Tartrate 50 Mg Tab PO 03/12/25 20:59 50 mg BID [facility] Administration Olanzapine 2.5 mg 02/10/25 18:00 02/10/25 12:52 Olanzapine 10 Mg/2.1 Ml Sdv IM 03/12/25 17:59 2.5 mg Q6 PRN Administration Agitation (2) Hypothermia Encounter type: initial encounter Qualified Code(s): T68.XXXA - Hypothermia, initial encounter (5) Fall Encounter type: initial encounter Qualified Code(s): W19.XXXA - Unspecified fall, initial encounter (6) Thoracic vertebral fracture Encounter type: initial encounter Fracture morphology: unspecified fracture morphology Fracture type: closed Thoracic vertebra fracture level: T12 Qualified Code(s): S22.089A - Unspecified fracture of T11-T12 vertebra, initial encounter for closed fracture (7) Rhabdomyolysis Encounter type: initial encounter
--- NOTE | 2025-02-11 07:22 | Electrocardiogram Report ---
Test Reason : Blood Pressure : */* mmHG Vent. Rate : 97 BPM Atrial Rate : 97 BPM P-R Int : 180 ms QRS Dur : 82 ms QT Int : 448 ms P-R-T Axes : 57 -51 80 degrees QTcB Int : 568 ms Sinus rhythm with Premature supraventricular complexes and Fusion complexes Possible Left atrial enlargement Low voltage QRS Left anterior fascicular block possible Inferior infarct , age undetermined Incomplete right bundle branch block Poor R wave progression, consider anterior WI vs. lead placement vs. LVH Abnormal ECG Confirmed by Demetri Olsen ([id number]) on 02/11/2025 7:21:29 AM Referred By: REFERRED SELF Confirmed By: Demetri Olsen
[2025-02-11 07:27] LABS: Albumin Globulin Ratio 1.3 (0.9-2); Albumin Level 2.8 gm/dl (3.4-5.0); Bilirubin,Total 0.6 mg/dl (0.2-1.0); Calcium 8.2 mg/dl (8.6-10.3); Creatinine Clr Calc Pharmacy 70.8 ml/min; Globulin 2.2 gm/dl (2.5-4.0); Magnesium 1.9 mg/dl (1.7-2.4); Phosphorus 1.9 mg/dl (2.5-4.9); Potassium 3.7 mmol/L (3.5-5.1)
[2025-02-11] MEDS: ATORVASTATIN 40 MG TAB PO SCH (07:43)
[2025-02-11 07:44] LABS: ANTI-Xa, UFH(UnfractionatedHep 0.66 IU/ml (0.3-0.7)
[2025-02-11] MEDS: PANTOprazole 40 MG/10 ML SYR IV SCH (07:46)
[2025-02-11] MEDS ORDERED: STAT IV Infusion **Titration per Protocol STA ×5 (09:01→22:45)
[2025-02-11] MEDS ORDERED: AMIODARONE IV BOLUS & DRIP IV STA (09:01)
[2025-02-11] MEDS ORDERED: 0.2 MICRON FILTER SET 1 EACH IV STA (09:01)
--- NOTE | 2025-02-11 09:08 | Communication Note ---
[facility] minutes spent discussing goals and values with brother who is next of kin at this time. Started conversation by discussing his critical condition, including ongoing resuscitation attempt for a cardiac arrest. Discussed resuscitation at length, risks and benefits discussed. Discussed that he is highly unlikely to survive another resuscitation attempt, and that his quality of life will be very poor even if he survives this. Medical recommendation would be to not perform additional intubation given high liklihood of causing suffering without benefit. His brother states that he would not want to suffer at end of life. He would not want him to have additional chest compressions or resuscitation beyond what has already been done (patient is intubated). Discussed that we will see how his critical condition unfolds over the next few hours/day, and will discuss further goals of care as the situation progresses. Code status is DNR with intubation, will change to "conditional code" in chart to reflect this. Date of Service: February 11, 2025
--- NOTE | 2025-02-11 09:09 | Procedure Note ---
Procedure Note Date of Service February 11, 2025 Procedure Note Procedure: Endotracheal Intubation Date: 02/11/25 Time: ~0850hrs Indication: Respiratory Distress Resident: None Attending: Dr. Sparrow Intubation was performed emergently in the setting of cardiopulmonary arrest CODE BLUE. The patient was easily ventilated using an ambu bag. The GLIDESCOPE was used and inserted into the oropharynx at which time vocal cords were easily visualized. A 7.5-greenlandic endotracheal tube was inserted and visualized going through the vocal cords. The stylette was removed. Colorimetric change was visualized on the CO2 meter. Breath sounds were heard in both lung negrete equally. The endotracheal tube was placed at 23 cm, measured at the teeth. A chest x-ray was ordered to assess for pneumothorax and verify endotracheal tube placement. Adequate placement. Estimated Blood Loss: None The patient tolerated the procedure well and there were no complications. [facility] [place] Procedure Codes (Charges) Resuscitation Resuscitation: [id number] Endotracheal Intubation, emergency Coding CPT Codes Resuscitation - Resuscitation: 99999 Endotracheal Intubation, emergency ([id number]) Additional Codes Date of Service (PG.SURGERY)
[2025-02-11] MEDS ORDERED: PROPOFOL BOLUS FROM BAG IV PRN (09:20)
[2025-02-11] MEDS: NOREPINEPHRINE/D5W 4 MG/250 ML PLCT IV SCH (09:35)
[2025-02-11] MEDS: VASOPRESSIN 20 UNITS in SODIUM CHLORIDE 0.9% 100 ML IV SCH (09:36)
--- NOTE | 2025-02-11 09:40 | XRay Report ---
XR chest 1V portable CLINICAL HISTORY: ett placement COMPARISON STUDY: 02/09/2025 FINDINGS: Endotracheal tube tip is just above the thoracic inlet. Heart size and pulmonary vasculatur e are normal. No effusion, consolidation, or pneumothorax. IMPRESSION: Endotracheal tube tip is just above the thoracic inlet. ACT 112: Negative or not required by law. Electronically signed by: Charlie Lees M.D. 02/11/2025 9:39 AM
--- NOTE | 2025-02-11 09:41 | XRay Report ---
XR chest 1V portable CLINICAL HISTORY: Reposition ETT COMPARISON STUDY: Earlier today FINDINGS: Endotracheal tube tip is in good position at the thoracic inlet. Heart size and pulmonary v asculature are normal. No effusion, consolidation, or pneumothorax. IMPRESSION: Well-positioned endotracheal tube. ACT 112: Negative or not required by law. Electronically signed by: Charlie Lees M.D. 02/11/2025 9:39 AM
[2025-02-11 09:57] LABS: Base Excess VBG -13.6 mEq/L; HCO3 VBG 16 mmol/L; Oxygen Saturation VBG 71.5 %; PCO2 VBG 52 mmHg (38-50); PO2 VBG 51 mmHg
[2025-02-11 10:10] LABS: Hemoglobin 12.1 g/dl (14.0-18.0); Mean Corpuscular Hemoglobin 32.1 pg (25.0-34.0); Mean Corpuscular Hgb Conc 34.6 g/dL (32.0-36.0); Mean Corpuscular Volume 92.8 fL (80.0-100.0); Mean Platelet Volume 10.9 fL (9.4-12.4); Nucleated RBC # (auto) 0.02 K/uL (0.00-0.12); Nucleated RBC % (auto) 0.2 %; Platelet Count 113 K/uL (130-400); RDW Coefficient of Variation 15.1 % (11.5-14.5); RDW Standard Deviation 51.5 fL (36.4-46.3); Red Blood Count 3.77 M/uL (4.70-6.10); White Blood Count 8.76 K/ul (4.8-10.8)
[2025-02-11 10:14] LABS: Basophils # (auto) 0.01 K/uL (0.00-0.20); Basophils % (auto) 0.1 %; Eosinophils # (auto) 0.01 K/uL (0.00-0.50); Eosinophils % (auto) 0.1 %; Hematocrit (blood only) 29.7 % (42.0-52.0); Hemoglobin 9.6 g/dl (14.0-18.0); Immature Granulocytes # (auto) 0.35 K/uL (0.01-0.20); Immature Granulocytes % (auto) 3.7 %; Lymphocytes # (auto) 0.98 K/uL (1.20-3.40); Lymphocytes % (auto) 10.4 %; Mean Corpuscular Hemoglobin 32.2 pg (25.0-34.0); Mean Corpuscular Hgb Conc 32.3 g/dL (32.0-36.0); Mean Corpuscular Volume 99.7 fL (80.0-100.0); Mean Platelet Volume 11.2 fL (9.4-12.4); Monocytes # (auto) 0.35 K/uL (0.11-0.59); Monocytes % (auto) 3.7 %; Neutrophils # (auto) 7.72 K/uL (1.40-6.50); Nucleated RBC # (auto) 0.12 K/uL (0.00-0.12); Nucleated RBC % (auto) 1.3 %; Platelet Count 107 K/uL (130-400); RDW Coefficient of Variation 15.4 % (11.5-14.5); RDW Standard Deviation 57.1 fL (36.4-46.3); Red Blood Count 2.98 M/uL (4.70-6.10); White Blood Count 9.42 K/ul (4.8-10.8)
[2025-02-11] MEDS: VECURONIUM BROMIDE 10 MG VIAL IV STA (10:21)
[2025-02-11] MEDS: SODIUM BICARB 8.4% INJ 50 MEQ/50 ML SYR IV STA (10:21)
[2025-02-11] MEDS: fentaNYL citrate 2,500 MCG/250 ML BAG IV SCH (10:22)
[2025-02-11] MEDS: VECURONIUM BROMIDE 10 MG VIAL IV ONE (10:22)
[2025-02-11] MEDS: SODIUM BICARB 8.4% INJ 50 MEQ/50 ML SYR IV ONE ×3 (10:22)
[2025-02-11] MEDS: AMIODARONE / D5W 150 MG/100 ML BAG IV STA (10:24)
[2025-02-11] MEDS: AMIODARONE / D5W 360 MG/200 ML BAG IV ONE (10:24)
[2025-02-11 10:31] LABS: Albumin Globulin Ratio 1.4 (0.9-2); Albumin Level 2.2 gm/dl (3.4-5.0); BUN Creatinine Ratio 13.9 (10-20); Bilirubin,Total 0.6 mg/dl (0.2-1.0); Calcium 8.5 mg/dl (8.6-10.3); Globulin 1.6 gm/dl (2.5-4.0); Magnesium 2.2 mg/dl (1.7-2.4); Phosphorus 6.9 mg/dl (2.5-4.9); Potassium 4.3 mmol/L (3.5-5.1); Total Protein 3.8 gm/dl (6.0-8.3)
[2025-02-11 10:41] VITALS: TEMP 100
--- NOTE | 2025-02-11 10:45 | Communication Note ---
Date of Service: February 11, 2025 Events of today reviewed. GI will sign off reconsult as needed based on clinical situation
[2025-02-11] MEDS ORDERED: SODIUM CHLORIDE 0.9% 100 ML IV PRN (10:46)
[2025-02-11] MEDS ORDERED: STAT IV/IM STA (10:48)
--- NOTE | 2025-02-11 10:53 | Procedure Note ---
Procedure Note Date of Service February 11, 2025 ARTERIAL LINE PROCEDURE NOTE: Procedure: Arterial Line Placement Indication: Monitoring on Pressors Anesthesia: Fentanyl Emergency consent implied as the patient is currently intubated and sedated and in severe shock. A time-out was completed verifying correct patient, procedure, site, positioning, and implant(s) or special equipment if applicable. Patients right wrist was prepped and draped in the usual sterile fashion. Ultrasound guidance was used to aid needle placement. A 20g Arrow arterial line was introduced into the right radial artery. Catheter was threaded, and the needle was removed with appropriate blood return. Good waveform was observed. The patient tolerated the procedure well. Blood Loss: Minimal Complications: None [facility] Procedure Codes (Charges) Tubes, Drains, and Vasc Access Procedure 1: Tubes, Drains, and Vasc Access: [id number] Ultrasound Guidance For Vascular Procedure 2: Tubes, Drains, and Vasc Access: [id number] Arterial Cath/Cannulation Sampling/Monitoring/Transfusion Coding CPT Codes Tubes, Drains, and Vasc Access - Tubes, Drains, and Vasc Access: [id number] Ultrasound Guidance For Vascular ([id number]) Tubes, Drains, and Vasc Access - Tubes, Drains, and Vasc Access: [id number] Arterial Cath/Cannulation Sampling/Monitoring/Transfusion ([id number]) Additional Codes Date of Service (PG.SURGERY)
[2025-02-11] MEDS ORDERED: PANTOPRAZOLE BOLUS/DRIP IV STA (10:56)
--- NOTE | 2025-02-11 10:56 | Critical Care Consultation ---
Date of Consultation February 11, 2025 Assessment & Plan (1) Cardiac arrest: (2) Ventricular fibrillation: (3) Atrial fibrillation with rapid ventricular response: (4) Volume depletion: (5) Hypomagnesemia: (6) Acute kidney injury: (7) Lactic acidosis: (8) Hypothermia: (9) Rhabdomyolysis: (10) Thoracic vertebral fracture: (11) Hypoxic respiratory failure: (12) Acute encephalopathy: (13) Upper GI bleed: Plan 74-year-old male with a history of hypertension, hyperlipidemia, left vertebral artery stenosis, first-degree AV block and IBS who originally presented to the hospital due to rhabdomyolysis and acute altered mental status. He was transferred down to the ICU 02/11/2025 due to ROSC obtained after cardiac arrest. He is currently in profound cardiogenic shock and has evidence of decerebrate posturing. Neuro: - Will utilize low-dose fentanyl and as needed rocuronium to promote ventilator synchrony. Will obtain an MRI of the brain and CT head. Significant concern for anoxic brain injury at this time. CV: Patient status post cardiac arrest with ROSC obtained. During the cardiac arrest he had evidence of ventricular fibrillation and is now currently on amiodarone infusion. Will discontinue heparin infusion due to concerns of GI bleed. Pulm: Patient with evidence of pulmonary edema and likely multiple rib fractures from cardiac arrest. Continue lung protective ventilation strategy on the ventilator. GI: Patient with evidence of an acute upper GI bleed. Will give 2 units of packed RBCs and reverse heparin with protamine sulfate. Start Protonix infusion. Obtain CT of the abdomen pelvis. Renal: YOU secondary to hypovolemic shock and cardiogenic shock. Monitor urine output closely. Transfuse colloids and blood. Patient with severe lactic acidosis status post cardiac arrest. Mild transaminitis noted as well. Heme: Patient with evidence of acute upper GI bleed. Protonix infusion initiated. Hold heparin. Give protamine sulfate. Check PTT and INR. Check fibrinogen. Endo: Maintain euglycemia. Low threshold for insulin drip. TSH normal. ID: Continue empiric Zosyn. Prophylaxis: -SCD for mechanical DVT prophylaxis Disposition: ICU. Family to be updated. CRITICAL CARE TIME I have personally spent 49 minutes of critical care time in the direct management of this patient. This is a life/limb threatening event. This includes time spent evaluating patient, direct bedside care, chart review, placing orders, interpretation of diagnostic studies, discussion with consultants, patient, and family members, as well as other required patient management activ ities. This time is exclusive of all separately billable procedures, and teaching time and separate from and in addition to any other critical care service time. History of Present Illness Reason for Consultation: Status post cardiac arrest Attending Physician: Yuly Workman MD History of Present Illness 74-year-old male who was originally admitted to the hospital 02/09/2025 due to hypovolemic shock and rhabdomyolysis. He was transferred out of the ICU yesterday in stable condition, but this morning sustained a cardiac arrest. Initial rhythm was a PEA per hospital staff and then he had V-fib and was shocked. ROSC was obtained after about 15 minutes. He was brought in the ICU and is currently on high-dose Levophed and vasopressin. He is intubated. He has occasional decerebrate posturing. I placed a right radial arterial line and a right femoral central line emergently. Repeat ABG in the ICU revealed respiratory alkalosis. Family was updated by the hospitalist service. Patient also appears to be having an acute upper GI bleed as he has large melanotic appearing stools. Heparin drip has been discontinued and protamine sulfate will be given. Review of systems is unobtainable from the patient as he is currently intubated and encephalopathic. E-FAST exam without evidence of free fluid in the abdomen. Ipwdk-eu-auxn ultrasound of the heart without evidence of tamponade. Allergies Allergy/AdvReac Type Severity Reaction Status Date / Time shrimp AdvReac Unknown GI SYMPTOMS Verified 02/11/20 06:09 Home Medications Medication Instructions Recorded Confirmed Type baclofen 10 mg tablet 10 mg PO TID PRN Muscle Spasm/Neck 02/11/20 02/09/25 History Pain dicyclomine 20 mg tablet 20 mg PO QID PRN Abdominal Pain 02/11/20 02/09/25 History atorvastatin 40 mg tablet 40 mg PO QAM 09/20/24 02/09/25 History diwabnfzmw-pasibzqwvners-letsvhbw 1 tab PO Q6H PRN Abdominal 09/20/24 02/09/25 History 50 mg-325 mg-40 mg tablet Pain/Neck Pain lisinopril 5 mg tablet 5 mg PO QAM 09/20/24 02/09/25 History Patient History Social History Smoking Status: Never smoker Second Hand Exposure: No; Do You Dip or Chew Tobacco: No; Hx Alcohol Use: No Hx Substance Use: No Preferred Language: [place] Communication Ability: Effective Concrete Polisher Required: No Beliefs That Will Affect Care: None Current Living Situation: Alone Feels Safe at Home: Yes Assistive Devices: Cane, Denture - Upper, Denture - Lower and Glasses Review of Systems Review of Systems: Unobtainable due to cognitive status and Unobtainable due to endotracheal tube Physical Exam Physical Exam: Constitutional: Intubated and in severe distress. Eyes: Pupils are equal round and reactive to light. Conjunctivae are normal. Anicteric sclera. Ears nose, mouth and throat: Endotracheal tube in place. Neck: Trachea is midline. Visual inspection is normal. Respiratory: Bilateral crackles noted. Tachypneic. Cardiovascular: Regular rate and rhythm. Gastrointestinal: Ventral incisional hernia noted. Musculoskeletal: No cyanosis. Patient is able to move all extremities. Strength is 5 out of 5 in the upper and lower extremities. Skin: No rashes, warm dry and intact. Neurologic: No obvious focal neurological deficits seen. Confused at times Psychiatric: Alert and oriented x3 with a euthymic affect. Results & Data Results & Data Vital Signs (Past 12 Hours) Vital Signs Temp Pulse Pulse Resp BP BP Pulse Ox 02/11/25 10:38 86/70 L 02/11/25 10:33 92/52 L 02/11/25 10:30 102/63 02/11/25 10:30 102/63 02/11/25 10:25 94/58 L 02/11/25 10:24 89 29 H 02/11/25 10:23 84/50 L 02/11/25 10:23 84/50 L 02/11/25 10:21 93 H 29 H 100 02/11/25 10:20 90/47 L 02/11/25 10:20 90/47 L 02/11/25 10:18 93/46 L 02/11/25 10:18 97 H 29 H 100 02/11/25 10:16 124/55 L 02/11/25 10:12 94 H 29 H 100 02/11/25 10:10 37.8 C H 02/11/25 10:10 02/11/25 10:08 123/76 02/11/25 10:08 123/76 02/11/25 10:05 126/72 02/11/25 10:03 122/71 02/11/25 10:00 100/65 02/11/25 10:00 85 24 88 L 02/11/25 09:58 107/68 02/11/25 09:55 110/57 L 02/11/25 09:54 88 24 100 02/11/25 09:53 113/67 02/11/25 09:45 111/60 02/11/25 09:43 115/56 L 02/11/25 09:36 74/48 L 02/11/25 09:30 126 H 19 100 02/11/25 09:27 125 H 17 100 02/11/25 09:21 117 H 17 100 02/11/25 09:18 106 H 17 100 02/11/25 09:15 104 H 24 02/11/25 09:12 93 H 19 02/11/25 09:00 188 H 11 L 02/11/25 08:00 02/11/25 07:34 36.5 C 98 H 20 129/74 97 02/11/25 07:14 125 H 02/11/25 03:16 36.6 C 98 H 19 127/68 91 02/10/25 23:00 36.9 C 100 H 18 133/88 95 Pulse Ox O2 Del Method O2 Del Method FiO2 02/11/25 10:38 02/11/25 10:33 02/11/25 10:30 02/11/25 10:30 02/11/25 10:25 02/11/25 10:24 02/11/25 10:23 02/11/25 10:23 02/11/25 10:21 02/11/25 10:20 02/11/25 10:20 02/11/25 10:18 02/11/25 10:18 02/11/25 10:16 02/11/25 10:12 02/11/25 10:10 02/11/25 10:10 92 Mechanical Vent 02/11/25 10:08 02/11/25 10:08 02/11/25 10:05 02/11/25 10:03 02/11/25 10:00 02/11/25 10:00 02/11/25 09:58 02/11/25 09:55 02/11/25 09:54 02/11/25 09:53 02/11/25 09:45 02/11/25 09:43 02/11/25 09:36 02/11/25 09:30 02/11/25 09:27 02/11/25 09:21 02/11/25 09:18 02/11/25 09:15 100 02/11/25 09:12 02/11/25 09:00 02/11/25 08:00 Room Air 02/11/25 07:34 Room Air 02/11/25 07:14 02/11/25 03:16 Room Air 02/10/25 23:00 Room Air Coding Level of Care Code 72538 CRITICAL CARE 1ST 30-74M Diagnoses Cardiac arrest I46.9 Ventricular fibrillation I49.01 Atrial fibrillation with rapid ventricular response I48.91 Volume depletion E86.9 Hypomagnesemia E83.42 Acute kidney injury N17.9 Lactic acidosis E87.20 Hypothermia, initial encounter T68.XXXA Encounter type: initial encounter Non-traumatic rhabdomyolysis M62.82 Encounter type: initial encounter Closed fracture of twelfth thoracic vertebra, unspecified fracture morphology, initial encounter S22.089A Encounter type: initial encounter Fracture morphology: unspecified fracture morphology Fracture type: closed Thoracic vertebra fracture level: T12 Hypoxic respiratory failure J96.91 Acute encephalopathy G93.40 Upper GI bleed K92.2 (8) Hypothermia Encounter type: initial encounter Qualified Code(s): T68.XXXA - Hypothermia, initial encounter (9) Rhabdomyolysis Encounter type: initial encounter (10) Thoracic vertebral fracture Encounter type: initial encounter Fracture morphology: unspecified fracture morphology Fracture type: closed Thoracic vertebra fracture level: T12 Qualified Code(s): S22.089A - Unspecified fracture of T11-T12 vertebra, initial encounter for closed fracture
--- NOTE | 2025-02-11 10:56 | Procedure Note ---
Procedure Note Date of Service February 11, 2025 Right femoral central line: Procedure: Right femoral central line placement Indication: Central Drug Administration, Poor Venous Access, Multiple Lab Draws Necessary, etc. Anesthesia: Fentanyl Emergency consent implied as the patient was intubated sedated and severe shock. A time-out was completed verifying correct patient, procedure, site, positioning, and implants(s) or special equipment if applicable. Patients right groin was cleansed and draped in the typical sterile fashion using Chloraprep. The femoral vein and femoral artery were identified using ultrasound. The right femoral vein was cannulated under direct ultrasound guidance using an introducer needle on a syringe. Good venous blood return was maintained prior to removal of syringe from introducer needle. Using Seldinger Technique, a guide wire was advanced through the introducer needle without resistance. The introducer needle was removed and ultrasound images were obtained of the guide wire within the Internal Jugular Vein and saved to the patients medical record. A small incision was made in penetrating fashion at the guide wire insertion site utilizing an 11 blade scalpel. The dilator was advanced to the vessel without resistance. The dilator was exchanged for the triple lumen catheter which was advanced into the vessel without resistance. The guide wire was removed intact from the catheter without issue. Claves were placed on each catheter tip with confirmation of good blood flow from each lumen. Each port was easily flushed with sterile saline. The catheter was placed at 20 cm and sut[address] in place. BioPatch was applied to the catheter and a sterile Tegaderm dressing was applied over the catheter with careful attention to sterility. Patient tolerated procedure well. No immediate complications were met. Images saved to the record. [facility] [place] Procedure Codes (Charges) Tubes, Drains, and Vasc Access Procedure 1: Tubes, Drains, and Vasc Access: [id number] Place catheter in vein superior or inferior vena cava Procedure 2: Tubes, Drains, and Vasc Access: [id number] Ultrasound Guidance For Vascular Coding CPT Codes Tubes, Drains, and Vasc Access - Tubes, Drains, and Vasc Access: [id number] Place catheter in vein superior or inferior vena cava ([id number]) Tubes, Drains, and Vasc Access - Tubes, Drains, and Vasc Access: [id number] Ultrasound Guidance For Vascular ([id number]) Additional Codes Date of Service (PG.SURGERY)
[2025-02-11] MEDS ORDERED: SODIUM BICARBONATE 8.4% 150 MEQ in DEXTROSE 5% 1,000 ML IV SCH (11:00)
[2025-02-11 11:02] LABS: iSTAT Art Bld Gas pCO2 Correct 23 mmHg (35-46); iSTAT Art Bld Gas pH Corrected 7.566 (7.35-7.45); iSTAT Arterial Blood Gas HCO3 21 meg/L (19-24); iSTAT Arterial Blood Gas pCO2 22 mmHg (35-46); iSTAT Arterial Blood Gas pH 7.58 (7.35-7.45); iSTAT Arterial Blood Gas pO2 258 mmHg (80-95); iSTAT Arterial Blood Gas pO2 C 262; iSTAT Carbon Dioxide 21 mmol/L (24-31); iSTAT FiO2 100 %; iSTAT Hematocrit 27 % (42-52); iSTAT Hemoglobin 9.2 g/dl (14.0-18.0); iSTAT Potassium 3.3 mmol/L (3.3-5.0); iSTAT Sample Type Arterial; iSTAT Site Art Line; iSTAT Sodium 140 mmol/L (135-144); iSTAT SpO2 100
[2025-02-11] MEDS: PROTAMINE SULFATE IV ONE (11:06)
[2025-02-11] MEDS: PANTOprazole 80 MG in DEXTROSE 5% 100 ML IV ONE (11:06)
[2025-02-11] MEDS: DEXTROSE 5% IV ONE (11:06)
[2025-02-11] MEDS: PANTOprazole 40 MG in DEXTROSE 5% MINI-B 100 ML IV SCH (11:10)
[2025-02-11 11:19] LABS: Fibrinogen 282 mg/dl (184-400); INR 1.3 (0.9-1.1); Partial Thromboplastin Ratio 2.6; Partial Thromboplastin Time 70 Seconds (21-31); Prothrombin Time 14.1 Seconds (9.0-12.0)
--- NOTE | 2025-02-11 11:23 | XRay Report ---
KUB HISTORY: Feeding Tube placement COMPARISON STUDY: CT of 02/09/2025 FINDINGS: Nasogastric tube tip is in the proximal stomach with the sidehole near the GE junction. The re is stable small bowel distention at the pelvis. IMPRESSION: Nasogastric tube as described. ACT 112: Negative or not required by law. The above report was generated using voice recognition software. It may contain grammatical, syntax o r spelling errors. Electronically signed by: Charlie Lees M.D. 02/11/2025 11:22 AM
[2025-02-11] MEDS: propofoL 1,000 MG/100 ML VIAL IV SCH (12:19)
[2025-02-11] MEDS: ICU Protocol for HYPERglycemia SCH (12:35)
[2025-02-11 13:24] VITALS: BP 112/66
[2025-02-11] MEDS: AMIODARONE / D5W 360 MG/200 ML BAG IV SCH (15:34)
[2025-02-11] MEDS ORDERED: ONDANSETRON INJ 2 MG/ML 2 ML VIAL IV PRN (16:51)
[2025-02-11] MEDS ORDERED: LORazepam 2 MG/1 ML VIAL IV PRN (16:51)
[2025-02-11] MEDS: fentaNYL BOLUS from BAG IV PRN (17:55)
[2025-02-11 18:11] VITALS: O2SAT 86
[2025-02-11] MEDS ORDERED: GLYCOPYRROLATE 0.2 MG/ML VIAL IV PRN (20:28)
[2025-02-11] MEDS: GLYCOPYRROLATE 0.2 MG/ML VIAL IV PRN (21:01)
[2025-02-11 21:46] VITALS: PULSE 107; RESP 13
[2025-02-11] MEDS: ATROPINE SULFATE 1% OP SOLN 5 ML BTL SL PRN (21:58)
[2025-02-11] MEDS ORDERED: MoRPHine BOLUS from BAG IV PRN (22:45)
[2025-02-11] MEDS: MoRPHine SULF 100 MG/100 ML BAG IV SCH (23:00)
--- NOTE | 2025-02-12 06:34 | Death Pronouncement Note ---
Date of Service February 12, 2025 Pronouncement Note Admission Date February 09, 2025 Date and Time of Date of : 02/12/25 Time of : 05:45 Additional Data Confirmation of : no pulse, no respirations, no heart sounds and pupils fixed and dilated Family: contacted Attending physician: Js Pearson MD
[2025-02-12] MEDS ORDERED: AMIODARONE HCL INJ 50 MG/ML 3 ML VIAL IV ONE (07:14)
[2025-02-12] MEDS ORDERED: DEXTROSE 5% 100 ML BAG IV ONE (07:14)
[2025-02-12] MEDS ORDERED: SODIUM BICARB 8.4% INJ 50 MEQ/50 ML SYR IV ONE (07:14)
[2025-02-12] MEDS ORDERED: CALCIUM CHLORIDE 10% 10 ML SYR IV ONE (07:14)
--- NOTE | 2025-02-12 07:22 | Discharge Summary ---
Discharge Summary Date of Service February 12, 2025 Principal Dx & Hospital Course #1 = Principal Diagnosis (1) Atrial fibrillation with rapid ventricular response: (2) Hypothermia: (3) Lactic acidosis: (4) Acute kidney injury: (5) Fall: (6) Thoracic vertebral fracture: (7) Rhabdomyolysis: (8) Aneurysmal dilatation: (9) Esophagitis: (10) Hypokalemia: Plan Mr. Mott is a 74y/o gentleman with PMHx significant for HLD, HTN, left vertebral artery stenosis, first-degree AV block, GERD, IBS with diarrhea, cervical DDD, chronic neck pain, history of migraines, acute vestibular syndrome, history of diverticular abscess and perforation s/p partial colectomy and subsequent reversal and FILIBERTO was admitted to ICU 02/09 for hemodynamic instability iso AFib with RVR potentially 2/2 presumed sepsis. Patient was hemodynamically stable and transferred to PCU Spoke to patient's brother who reports patient would not want further extensive measures if survival does not seem likely--plan to discuss further this afternoon once more labs and imaging returns. On 02/11, patient was awake but noted the sensation of "falling" as per nurse report, prior to becoming unconscious when code blue was called. At approximately 0845 on 02/11, compressions were started. Initial rhythm deemed to be PEA arrest. 4 rounds of epi were administered, 1amp bicarb, calcium gluconate. ROSC was obtained and noted to SVT. Amiodarone started. Patient transferred to ICU where Levophed and vasopressin were initiated given MAPs in 30s. Pressures improved with pressor support with MAPS i> 65, however, patient posturing and demonstrating signs of poor neurological recovery. ICU discussed with brother who ultimately decided for patient to be transitioned to comfort measures. Ultimately, patient was terminally extubated and succumbed to his injuries. He was treated for the following: #Cardiogentic Shock 2/2 Pulseless electrical Activity, Cardiac Arrest #VDRF s/p ROSC Pressor support per ICU Ventilator management per ICU Transitioned to comfort measures #Acute metabolic encephalopathy likely delirium suspect underlying cognitive impairment likely iso critical illness TSH 0.4, b12 352, folate 13.23 comfort measures #Possible Sepsis, infectious work up negative thus far #Hypovolemic shock #Hypothermia CT abd pelvis no abnormality outside of compression fracture at T12, +/- duodenitis v artifact; chest CT with prox/distal esophageal thickening hypotensive with lactic acidosis, improving with fluid resuscitation UA negative, biofire negative, MRSA negative 02/09 blood cultures NGTD comfort measures Other conditions treated this admission: #Transaminitis, iso hypovolemia and rhabdo continue aggressive IVF hold statin trend lfts #Atrial fibrillation with RVR Patient is s/p cardioversion x 3 aggressive lyte replacement Increased po metoprolol tartrate 50mg Cardiology consulted Amiodarone drip started given SVT/RVR s/p ROSC #prediabetes A1C 5.9% 02/10 #HTN previously on carvedilol 3.125 mg twice daily for rate iso PACs and blood pressure control holding home lisinopril #Mild Rhabdomyolysis #Elevated Troponin likely demand and 2/2 CK elevation CK 2343 up to 2676 #Possible esophagitis/duodenitis on imaging Continue pantoprazole PO GI consulted: reviewed recommendations, no EGD at this time #YOU CR 1.9 on admission, downtrending with fluid resuscitation continue to trend bmp #Acute compression fracture T12 #Mechanical fall Chest CT/CTAP noting an acute vertebral body compression fracture at T12. R & L knee XR with no evidence of fracture. Trace joint effusion, mild osteoarthritis. Ortho spine: Recommendations are for mobilization out of bed, if patient complains of increasing back pain, may apply a thoracolumbar brace plan to obtain upright radiographs of the thoracolumbar junction in the next several days after the patient has mobilized # Aneurysmal dilatation: CTAP: Aneurysmal dilatation of the ascending aorta measuring up to 4.7cm. Follow up OP #HLD hold statin Notes For Next Care Provider Medication Changes From Visit Admission HPI Per Admitting Provider Mr. Mott is a 74y/o M with PMHx significant for HLD, HTN, left vertebral artery stenosis, first-degree AV block, GERD, IBS with diarrhea, cervical DDD, chronic neck pain, history of migraines, acute vestibular syndrome, history of diverticular abscess and perforation s/p partial colectomy and subsequent reversal and FILIBERTO who presented to the ED via EMS after sustaining a fall at home. Majority of history obtained from the patient's brother, Yamil, over the phone. Patient A&O to person and place but unable to provide much additional history. Patient seen at bedside with Dr. Fermin. Per Yamil, their cousin recently last week whom he was quite close to. Reportedly having a hard time with anxiety and depression since her . Had mentioned last week that he was having issues with his breathing but this was never formally evaluated. He called Yamil earlier this morning after he had fallen out of bed, which the patient does recall. He was lying down on the ground for about an hour as he was unable to get up off of the floor himself. He has been complaining of a poor appetite due to nausea over the past week. He normally ambulates with the assistance of a cane. He has been taking his home medications as prescribed per Yamil. Patient lives at home alone. Also has been experiencing some bilateral knee pain which has been impacting his ability to walk well. Patient found to be in unstable AFib with RVR (HR in the 160s-170s) in the ED. Dr. Fermin and I discussed his case directly with Dr. Walter over the phone. Underwent emergent cardioversion 2/2 hypotension x 3 in the ED. Cardioversion was unsuccessful. Patient then received 2.5mg IV Lopressor over 5 minutes with subsequent improvement in his HR down to the 90s-110s with conversion to sinus rhythm with PACs. An additional dose of 2.5mg IV Lopressor was administered over 5 minutes with minimal change in HR however his BP stabilized. Notably hypothermic with Lynn catheter temperature probe reading of 35oC. Betzaida hugger applied. Lab work reviewed. No leukocytosis. Elevated Hgb likely 2/2 dehydration. S/p 2L NSS prior to our evaluation in the ED. Notably hypokalemic. Had received 2 bags of IV KCl prior to our evaluation in the ED. Lactic acidosis of 4.1, procalcitonin negative. TSH WNL. Initial HS troponin 284.2, repeat HS troponin 210.1. Respiratory BioFire panel negative. UA without evidence of overt infection. Blood cultures ordered. Admission Exam Per Admitting Provider On exam, General: Ill appearing elderly man on betzaida hugger Eyes: Conjunctivae normal, not pale, anicteric sclerae, EOM intact bilaterally ENMT: External ear and nose normal, oropharynx normal Respiratory: Normal respiratory effort, no respiratory distress, lungs clear to auscultation Cardiovascular: +tachycardic, S1 S2 Gastrointestinal (Abdomen): Abdomen is not distended, soft, non-tender to palpation, no guarding, normal bowel sounds Musculoskeletal: No pedal edema Neurologic: Alert and oriented to person and place only, no focal deficits Discharge Exam see note Updated Medication List Medication Instructions Recorded Confirmed Type baclofen 10 mg tablet 10 mg PO TID PRN Muscle Spasm/Neck 02/11/20 02/09/25 History Pain dicyclomine 20 mg tablet 20 mg PO QID PRN Abdominal Pain 02/11/20 02/09/25 History atorvastatin 40 mg tablet 40 mg PO QAM 09/20/24 02/09/25 History [id number] 1 tab PO Q6H PRN Abdominal 09/20/24 02/09/25 History 50 mg-325 mg-40 mg tablet Pain/Neck Pain lisinopril 5 mg tablet 5 mg PO QAM 09/20/24 02/09/25 History Hospital Stay Data Consultations 02/09/25 12:01 ED Decision to Admit Stat 02/09/25 12:37 Consult Director Of Exhibit Development Routine 02/09/25 13:53 Consult Orthopedic Spine Surgery Routine 02/09/25 15:06 Consult Gastroenterology Routine 02/09/25 16:22 Consult Cardiology Routine Diagnostic Imagining Performed 02/09/25 10:43 CT abd pelvis wo con Stat CT cervical spine wo con Stat CT chest diagnostic wo con Stat CT head/brain wo con Stat 02/10/25 12:38 CT head/brain wo con Urgent Total Time Total Time Spent Total Time Spent (In Minutes): 0
== END 2025-02-12 07:15 | disposition expired | DRG 871 ==
LOC: ED 10:20 → 1E 12:32 → SUATTDRO 12:32 → 1E 13:30 → 2S 02-10 12:26 → 1E 02-11 09:03 → 3W 02-11 23:42
DX: M62.82 Rhabdomyolysis; I10 Essential (primary) hypertension; N17.9 Acute kidney failure, unspecified; T68.XXXA Hypothermia, initial encounter; R57.1 Hypovolemic shock; E78.5 Hyperlipidemia, unspecified; E83.42 Hypomagnesemia; I95.9 Hypotension, unspecified; I24.89 Other forms of acute ischemic heart disease; I46.9 Cardiac arrest, cause unspecified; W19.XXXA Unspecified fall, initial encounter; Z91.013 Allergy to seafood; M25.562 Pain in left knee; G93.41 Metabolic encephalopathy; E87.20 Acidosis, unspecified; Z79.899 Other long term (current) drug therapy; E87.6 Hypokalemia; K20.90 Esophagitis, unspecified without bleeding; M25.561 Pain in right knee; A41.9 Sepsis, unspecified organism; E86.0 Dehydration; I71.21 Aneurysm of the ascending aorta, without rupture; S22.080A Wedge compression fracture of T11-T12 vertebra, initial encounter for closed fracture; I48.0 Paroxysmal atrial fibrillation; Z66 Do not resuscitate; Y92.003 Bedroom of unspecified non-institutional (private) residence as the place of occurrence of the external cause